=== PATIENT | female | born 1995 | race Caucasian/White ===

== ENCOUNTER 2018-12-19 09:25 | Emergency (ER) | payer OTHER ==
--- OUTSIDE RECORDS SUMMARY | 2018-12-19 09:27 | XMS REPORT ---
:1995 [facility] Address [address] [place] [address] [place] [address] Care Team Providers Name Role Phone Unavailable Unavailable Unavailable Problems This patient has no known problems. Allergies, Adverse Reactions, Alerts This patient has no known allergies or adverse reactions. Medications This patient has no known medications.
--- OUTSIDE RECORDS SUMMARY | 2018-12-19 09:27 | XMS REPORT | Summary of Care ---
:1995 Author Organization [facility] Address [address] [place] [id number] Care Team Providers Name Role Phone Carlo Benz Primary Care Provider Reason for Visit Reason Comments Rx Concern/Question Needs to know if medication is making her nauseous Encounter Details Date Type Department Care Team Description 12/18/[address] [facility] Ozzie Juárez Rx Concern/Question Endocrinology- [address] [place] [address] (Needs to know if [place] [address] medication [place] [address] her nauseous) Building [phone] [place] [address] [address] [place] [address] Allergies No Known Allergiesdocumented as of this encounter (statuses as of 12/18/2018) Medications Medication Sig Dispensed Refills Start Date End Date Status Blood Pressure Monitor Use as directed 1 Kit 0 08/22/2015 Active (BLOOD PRESSURE KIT) KitIndications: Hyperthyroidism levothyroxine 50 mcg Take 1 tablet by 30 tablet 5 11/13/2018 Active tabletIndications: mouth every Postablative morning. hypothyroidism documented as of this encounter (statuses as of 12/18/2018) Active Problems Problem Noted Date 01/30/2016 Graves disease 11/28/2015 documented as of this encounter (statuses as of 12/18/2018) Social History Tobacco Use Types Packs/Day Years Used Date Never Smoker Alcohol Use Drinks/Week oz/Week Comments Not Asked 0 Standard drinks or equivalent 0.0 Sex Assigned at Date Recorded Not on file Job Start Date Occupation Industry Not on file Not on file Not on file Travel History Travel Start Travel End No recent travel history available. documented as of this encounter Last Filed Vital Signs Not on filedocumented in this encounter Plan of Treatment Date Type Specialty Care Team Description 02/12/2019 Office Visit Endocrinology Diabetes & Ozzie Juárez [address] [place] [address] [phone] Name Type Priority Associated Diagnoses Order Schedule THYROID STIMULATING LAB Routine Postablative hypothyroidism Expected: HORMONE 12/18/2018, Expires: 01/15/2019 T4 FREE LAB Routine Postablative hypothyroidism Expected: 12/18/2018, Expires: 01/15/2019 Health Maintenance Due Date Last Done Comments VARICELLA VACCINES (1 of 2 - 13+ 10/18/2007 2-dose series) HPV VACCINES (1 - Female 3-dose 2009 series) CHLAMYDIA SCREENING 2010 DTaP,Tdap,and Td Vaccines (1 - 2013 Tdap) PAP SMEAR 10/18/2015 INFLUENZA VACCINE 01/17/2019 PNEUMOCOCCAL 0-64 YEARS COMBINED Aged Out No longer eligible based on SERIES patient's age to complete this topic documented as of this encounter Results Not on filedocumented in this encounter Visit Diagnoses Diagnosis Postablative hypothyroidism - Primary Other postablative hypothyroidism documented in this encounter Insurance Payer Benefit Plan / Group Subscriber ID Effective Dates Phone Address Type AETNA AETNA O [id number] 2015-Present HMO documented as of this encounter
[2018-12-19] MEDS ORDERED: NA CHLORIDE 0.9% 1,000 ML ONE (09:46)
[2018-12-19 10:16] LABS: Absolute Lymphocytes (CBC) 1.6 K/uL (0.7-4.9); Basophils % 0.9 % (0-1.3); Hematocrit 37.4 % (36.0-45.0); Lymphocytes % 25.5 % (15.3-44.8); MPV 8.5 fL (7.6-11.3)
[2018-12-19 10:17] LABS: Urine Bacteria 20-50 /HPF (<20); Urine Culture Reflex Order NOT NEEDED; Urine Mucus 1+ /HPF (NONE SEEN); Urine RBC <5 /HPF (NONE SEEN)
[2018-12-19 10:35] LABS: Barbiturates NEGATIVE (NEGATIVE); Benzodiazepines NEGATIVE (NEGATIVE); Cocaine NEGATIVE (NEGATIVE); METHAMPHETAM NEGATIVE (NEGATIVE); Methadone NEGATIVE (NEGATIVE); Opiates NEGATIVE (NEGATIVE); Phencyclidine NEGATIVE (NEGATIVE); THC Cannibis POSITIVE (NEGATIVE)
[2018-12-19 10:55] LABS: BUN Blood Urea Nitrogen 15 mg/dL (7-18); Bicarbonate 28 mmol/L (21-32); Glucose Level 85 mg/dL (74-106); Potassium 4.1 mmol/L (3.5-5.1); Sodium Level 143 mmol/L (136-145)
[2018-12-19 11:46] LABS: Urine Blood 1+ (NEG); Urine Glucose NEGATIVE (NEG); Urine Protein TRACE (NEG); Urine Specific Gravity 1.025 (1.005-1.030)
[2018-12-19] MEDS ORDERED: CEFTRIAXONE/SWI 1gm 1 GM/10 ML SYR ONE (12:10)
--- NOTE | 2018-12-19 12:16 | ER ---
Nurse's Notes [facility] Name: Penelope Slater Age: 23 yrs Sex: Female : 1995 Arrival Date: 12/19/2018 Time: 09:28 Bed 14 Private MD: Diagnosis: Urinary tract infection, site not specified;Thyrotoxicosis [hyperthyroidism] Presentation: 12/19 09:45 Presenting complaint: Patient states: hx of Graves disease, has been feeling tired, iw felt like she was going to pass out at work today , yesterday had diarrhea, also c/o nausea, denies vomiting, denies fever, did not take her levothyroxine last night. Transition of care: patient was not received from another setting of care. Onset of symptoms was December 18, 2018. Risk Assessment: Do you want to hurt yourself or someone else? Patient reports no desire to harm self or others. Initial Sepsis Screen: Does the patient meet any 2 criteria? No. Patient's initial sepsis screen is negative. Does the patient have a suspected source of infection? No. Patient's initial sepsis screen is negative. Care prior to arrival: None. 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 - Social history:: Smoking status: Patient/guardian denies using tobacco. - Ebola Screening: : Patient negative for fever greater than or equal to 101.5 degrees Fahrenheit, and additional compatible Ebola Virus Disease symptoms Patient denies exposure to infectious person Patient denies travel to an Ebola-affected area in the 21 days before illness onset No symptoms or risks identified at this time. Screenin:00 Abuse screen: Denies threats or abuse. Denies injuries from another. Nutritional sg screening: No deficits noted. Tuberculosis screening: No symptoms or risk factors identified. Never had TB. Fall Risk None identified. Assessment: 10:00 General: Appears in no apparent distress. well groomed, well developed, well nourished, sg Behavior is calm, cooperative, appropriate for age. General: Reports fatigue for 1-2 days. Pain: Denies pain. Neuro: Level of Consciousness is awake, alert, obeys commands, Oriented to person, place, time, Supervisor Public Health Nursing are equal bilaterally Moves all extremities. Gait is steady, Speech is normal, Facial symmetry appears normal. Cardiovascular: Capillary refill is brisk in bilateral fingers Patient's skin is warm and dry. Chest pain is denied. Respiratory: Airway is patent Respiratory effort is even, unlabored, Respiratory pattern is regular, symmetrical. GI: No signs and/or symptoms were reported involving the gastrointestinal system. : No signs and/or symptoms were reported regarding the genitourinary system. EENT: No signs and/or symptoms were reported regarding the EENT system. Derm: Skin is pink, warm \T\ dry. Musculoskeletal: Circulation, motion, and sensation intact. Range of motion: intact in all extremities. 10:30 Reassessment: Patient appears in no apparent distress at this time. Patient and/or sg family updated on plan of care and expected duration. Pain level reassessed. Patient is alert, oriented x 3, equal unlabored respirations, skin warm/dry/pink. Vital Signs: 09:46 BP 102 / 89; Pulse 71; Resp 16; Temp 97.7(TE); Pulse Ox 98% on R/A; Weight 126.55 kg; iw Height 5 ft. 7 in. (170.18 cm); Pain 0/10; 09:46 Body Mass Index 43.70 (126.55 kg, 170.18 cm) iw ED Course: 09:28 Patient arrived in ED. as 09:29 Gretel Doan FNP-C [facility]. snw 09:29 Nikolas Winston MD is Attending Physician. snw 09:45 Sagar Tolliver, MAGALYS is Primary Nurse. sg 09:46 Triage completed. iw 09:46 Arm band placed on. iw 10:00 Patient has correct armband on for positive identification. Bed in low position. Call sg light in reach. Side rails up X2. Pulse ox on. NIBP on. 10:00 Initial lab(s) drawn, by me, sent to lab. Inserted saline lock: 22 gauge in left sg antecubital area, using aseptic technique. Blood collected. 10:24 No provider procedures requiring assistance completed. sg 10:29 No provider procedures requiring assistance completed. sg 10:30 Awaiting lab results. sg 12:40 IV discontinued, intact, bleeding controlled, No redness/swelling at site. Pressure sg dressing applied. Administered Medications: 10:00 Drug: NS 0.9% 1000 ml Route: IV; Rate: 1 bolus; Site: left antecubital; sg 12:00 Drug: Rocephin 1 grams Route: IV; Rate: calculated rate; Site: left antecubital; sg Outcome: 12:15 Discharge ordered by MD. snw 12:40 Discharged to home ambulatory, with friend. sg 12:40 Condition: good 12:40 Discharge instructions given to patient, Instructed on discharge instructions, follow up and referral plans. medication usage, safety practices, Demonstrated understanding of instructions, follow-up care, Prescriptions given X 2. 12:42 Patient left the ED. sg Signatures: Sagar Tolliver, RN RN sg Gretel Doan, WELLNESS TRAINER-C WELLNESS TRAINER-Alicia Black as Danica Adames RN RN
--- NOTE | 2018-12-19 12:16 | EDPHYS ---
Physician Documentation [facility] Name: Penelope Slater Age: 23 yrs Sex: Female : 1995 Arrival Date: 12/19/2018 Time: 09:28 Bed 14 Private MD: ED Physician Nikolas Winston HPI: 12/19 09:44 This 23 yrs old Female presents to ER via Unassigned with complaints of snw Thyroid. 09:44 Onset: The symptoms/episode began/occurred 1 week(s) ago, and became persistent. snw Associated signs and symptoms: Pertinent positives: diarrhea, vomiting, nausea, palpitations, heat intolerance. Modifying factors: The patient symptoms are alleviated by nothing, the patient symptoms are aggravated by movement. The patient has experienced similar episodes in the past. It is unknown whether or not the patient has recently seen a physician. pt with hx of Grave's, took Methimazole until a month ago and began Levothyroxine. Pt states she was previously tx'd with radioactive iodine therapy. 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 - Social history:: Smoking status: Patient/guardian denies using tobacco. - Ebola Screening: : Patient negative for fever greater than or equal to 101.5 degrees Fahrenheit, and additional compatible Ebola Virus Disease symptoms Patient denies exposure to infectious person Patient denies travel to an Ebola-affected area in the 21 days before illness onset No symptoms or risks identified at this time. ROS: 09:42 Eyes: Negative for injury, pain, redness, and discharge, ENT: Negative for injury, snw pain, and discharge, Neck: Negative for injury, pain, and swelling, Cardiovascular: Negative for chest pain, palpitations, and edema, Respiratory: Negative for shortness of breath, cough, wheezing, and pleuritic chest pain. 09:42 Back: Negative for injury and pain, : Negative for injury, bleeding, discharge, and swelling, MS/Extremity: Negative for injury and deformity, Skin: Negative for injury, rash, and discoloration. 09:42 Constitutional: Positive for fatigue, malaise, poor PO intake. 09:42 Abdomen/GI: Positive for nausea, vomiting, and diarrhea. 09:42 Neuro: Positive for near syncope. Exam: 09:42 Constitutional: This is a well developed, well nourished patient who is awake, alert, snw and in no acute distress. Head/Face: Normocephalic, atraumatic. Eyes: Pupils equal round and reactive to light, extra-ocular motions intact. Lids and lashes normal. Conjunctiva and sclera are non-icteric and not injected. Cornea within normal limits. Periorbital areas with no swelling, redness, or edema. ENT: Nares patent. No nasal discharge, no septal abnormalities noted. Tympanic membranes are normal and external auditory canals are clear. Oropharynx with no redness, swelling, or masses, exudates, or evidence of obstruction, uvula midline. Mucous membranes moist. Neck: Trachea midline, no thyromegaly or masses palpated, and no cervical lymphadenopathy. Supple, full range of motion without nuchal rigidity, or vertebral point tenderness. No Meningismus. Chest/axilla: Normal chest wall appearance and motion. Nontender with no deformity. No lesions are appreciated. Cardiovascular: Regular rate and rhythm with a normal S1 and S2. No gallops, murmurs, or rubs. Normal PMI, no JVD. No pulse deficits. Respiratory: Lungs have equal breath sounds bilaterally, clear to auscultation and percussion. No rales, rhonchi or wheezes noted. No increased work of breathing, no retractions or nasal flaring. Abdomen/GI: Soft, non-tender, with normal bowel sounds. No distension or tympany. No guarding or rebound. No evidence of tenderness throughout. Back: No spinal tenderness. No costovertebral tenderness. Full range of motion. Skin: Warm, dry with normal turgor. Normal color with no rashes, no lesions, and no evidence of cellulitis. MS/ Extremity: Pulses equal, no cyanosis. Neurovascular intact. Full, normal range of motion. Neuro: Awake and alert, GCS 15, oriented to person, place, time, and situation. Cranial nerves II-XII grossly intact. Motor strength 5/5 in all extremities. Sensory grossly intact. Cerebellar exam normal. Normal gait. Psych: Awake, alert, with orientation to person, place and time. Behavior, mood, and affect are within normal limits. Vital Signs: 09:46 BP 102 / 89; Pulse 71; Resp 16; Temp 97.7(TE); Pulse Ox 98% on R/A; Weight 126.55 kg; iw Height 5 ft. 7 in. (170.18 cm); Pain 0/10; 09:46 Body Mass Index 43.70 (126.55 kg, 170.18 cm) iw MDM: 09:33 Patient medically screened. snw 11:59 Data reviewed: vital signs, nurses notes. Data interpreted: Pulse oximetry: on room air snw is 98 %. Interpretation: normal. Counseling: I had a detailed discussion with the patient and/or guardian regarding: the historical points, exam findings, and any diagnostic results supporting the discharge/admit diagnosis, lab results, the need for outpatient follow up, stop Levothyroxine until f/u with Endocrinology. Response to treatment: the patient's symptoms have mildly improved after treatment. Awaiting: free T4 value. 12/19 09:42 Order name: Chem 7 snw 12/19 09:42 Order name: CBC with Diff; Complete Time: 10:18 snw 12/19 09:42 Order name: TSH; Complete Time: 11:03 snw 12/19 09:42 Order name: Urine Drug Screen; Complete Time: 10:46 snw 12/19 09:42 Order name: Urine Culture snw 12/19 09:42 Order name: Urine Microscopic Only; Complete Time: 10:18 snw 12/19 09:42 Order name: Urine Test (obtain specimen); Complete Time: 10:20 snw 12/19 09:42 Order name: Urine Dipstick-Ancillary (obtain specimen); Complete Time: 10:20 snw 12/19 09:43 Order name: Basic Metabolic Panel; Complete Time: 11:03 EDMS 12/19 09:58 Order name: Urine Dipstick--Ancillary (enter results); Complete Time: 11:52 eb 12/19 09:58 Order name: Urine --Ancillary (enter results); Complete Time: 11:52 eb 12/19 11:56 Order name: T4 Free; Complete Time: 12:14 snw Administered Medications: 10:00 Drug: NS 0.9% 1000 ml Route: IV; Rate: 1 bolus; Site: left antecubital; sg 12:00 Drug: Rocephin 1 grams Route: IV; Rate: calculated rate; Site: left antecubital; sg Disposition: 15:27 Co-signature as Attending Physician, Nikolas Winston MD. rn Disposition: 12/19/18 12:15 Discharged to Home. Impression: Urinary tract infection, site not specified, Thyrotoxicosis [hyperthyroidism]. - Condition is Stable. - Discharge Instructions: Hyperthyroidism, Urinary Tract Infection, Adult, Rehydration, Adult. - Prescriptions for Macrobid 100 mg Oral Capsule - take 1 capsule by ORAL route every 12 hours for 10 days; 20 capsule. promethazine 25 mg Oral Tablet - take 1 tablet by ORAL route every 6 hours As needed; 20 tablet. - Work release form, Medication Reconciliation Form, Thank You Letter, Antibiotic Education, Prescription Opioid Use form. - Follow up: Private Physician; When: 1 - 2 days; Reason: Recheck today's complaints, Continuance of care, Re-evaluation by your physician. Follow up: Emergency Department; When: As needed; Reason: Worsening of condition. - Notes: Please stop Levothyroxine and follow up with Anesthesiology Teacher as soon as possible Signatures: Dispatcher [employer] Sagar Chavarria RN RN sg Gretel Doan, FILE CLERK DATA ENTRY-C FILE CLERK DATA ENTRY-Csnw Danica Adames RN RN Nikolas Winston MD MD sports team marketing intern: (The following items were deleted from the chart) 12:42 12:15 12/19/2018 12:15 Discharged to Home. Impression: Urinary tract infection, site sg not specified; Thyrotoxicosis [hyperthyroidism]. Condition is Stable. Forms are Medication Reconciliation Form, Thank You Letter, Antibiotic Education, Prescription Opioid Use. Follow up: Private Physician; When: 1 - 2 days; Reason: Recheck today's complaints, Continuance of care, Re-evaluation by your physician. Follow up: Emergency Department; When: As needed; Reason: Worsening of condition. snw
[2018-12-19 13:12] VITALS: BP 102/89; TEMP 97.7; O2SAT 98
== END 2018-12-19 12:42 | disposition home or self-care (01) ==
LOC: ER 09:25
DX: N39.0 Urinary tract infection, site not specified (principal); E05.90 Thyrotoxicosis, unspecified without thyrotoxic crisis or storm; I10 Essential (primary) hypertension; E05.00 Thyrotoxicosis with diffuse goiter without thyrotoxic crisis or storm; Z91.018 Allergy to other foods; Z91.040 Latex allergy status; Z91.048 Other nonmedicinal substance allergy status
CPT/HCPCS: 87088; 85025; 87086; 80048; 36415; 81025; 80307 ×8; 84443; 84439; 96374; 99284; J0696; J7030; 81003; 81015

== ENCOUNTER 2020-12-12 12:41 | Emergency (ER) | payer OTHER, SELFPAY ==
--- OUTSIDE RECORDS SUMMARY | 2020-12-12 12:43 | XMS REPORT | Continuity of Care Document ---
:1995 Author Organization [facility] t Address [address] [place] [place] [address] Care Team Providers Name Role Phone Fariha Juárez Attending Clinician 1, Lab Attending Clinician Unavailable Problems This patient has no known problems. Allergies, Adverse Reactions, Alerts This patient has no known allergies or adverse reactions. Medications This patient has no known medications. Procedures This patient has no known procedures. Encounters Start End Encounter Admission Attending Care Care Encounter Source Date/Time Date/Time Type Type Clinicians Facility Department ID 2018-12-31 2018-12-31 Telephone Franck [facility] [id number] 00:00:00 00:00:00 Ozzie Menezes [id number] [place] [id number] Profess[facility] [phone] [address] 2018-12-29 2018-12-29 [facility] [id number] 00:00:00 00:00:00 Ozzie Menezes [id number] [place] [id number] [facility] [id number] [address] 2018-12-28 2018-12-28 Telephone Franck [facility] [id number] 00:00:00 00:00:00 Ozzie Menezes [id number] [place] [id number] [facility] [phone] [address] 2018-12-22 2018-12-24 [facility] 1, Adc Lab [facility] [id number] 16:50:48 21:42:12 Visit [place] [id number] [place] [id number] [place] [phone] [id number] Results This patient has no known results.
[2020-12-12 13:19] LABS: Urine Blood Negative (Negative); Urine Glucose Negative (Negative); Urine Protein 1+ (Negative); Urine Specific Gravity 1.025 (1.005-1.030); Urine pH 5.5 (5.0-7.0)
[2020-12-12 13:51] LABS: Absolute Lymphocytes (CBC) 1.3 K/uL (0.7-4.9); Basophils % 0.6 % (0-1.3); Hematocrit 41.8 % (36.0-45.0); MPV 8.1 fL (7.6-11.3); RBC Red Blood Cell Count 4.83 M/uL (3.86-4.86)
[2020-12-12 14:16] LABS: Urine Specific Gravity/Preg 1.025 (1.005-1.030)
[2020-12-12 14:17] LABS: ALT/SGPT 43 U/L (12-78); AST/SGOT 39 U/L (15-37); Albumin 4.2 g/dL (3.4-5.0); Alkaline Phosphatase 74 U/L (45-117); BUN Blood Urea Nitrogen 15 mg/dL (7-18); Bicarbonate 23 mmol/L (21-32); Bilirubin Direct 0.1 mg/dL (0-0.2); Bilirubin Total 0.4 mg/dL (0.2-1.0); Glucose Level 98 mg/dL (74-106); Lipase 42 U/L (73-393); Potassium 3.7 mmol/L (3.5-5.1); Protein, Total 8.2 g/dL (6.4-8.2); Sodium Level 141 mmol/L (136-145)
[2020-12-12] MEDS ORDERED: NA CHLORIDE 0.9% 1,000 ML ONE (15:04)
[2020-12-12] MEDS ORDERED: ONDANSETRON 4 MG/2 ML VIAL ONE (15:04)
[2020-12-12] MEDS ORDERED: FAMOTIDINE 20 MG/2 ML VIAL IV ONE (15:15)
[2020-12-12] MEDS ORDERED: NA CHLORIDE 0.9% 500 ML ONE (16:40)
[2020-12-12] MEDS ORDERED: METOCLOPRAMIDE 10 MG/2mL INJ ONE ×2 (16:40)
--- NOTE | 2020-12-12 18:17 | ER ---
Nurse's Notes [facility] Name: Penelope Slater Age: 25 yrs Sex: Female : 1995 Arrival Date: 12/12/2020 Time: 12:44 Bed 27 Private MD: Diagnosis: Vomiting;Diarrhea, unspecified;Acute vaginitis Presentation: 12/12 12:58 Chief complaint: Patient states: diarrhea, nausea, vomiting unable to keep anything kg down x 4 days. Burning after urination, urgency, vaginally feels swollen pt stated, "almost like a yest infection" Pt took one dose of monostat yesterday. Coronavirus screen: Client denies travel out of the [place] in the last 14 days. At this time, unable to obtain information related to travel outside the [place] Client presents with at least one sign or symptom that may indicate coronavirus-19. Standard/surgical mask placed on the client. Provider contacted for isolation considerations. Client reports previous positive COVID test result. Date of collection: December 09, 2020. Ebola Screen: Patient negative for fever greater than or equal to 101.5 degrees Fahrenheit, and additional compatible Ebola Virus Disease symptoms Patient denies exposure to infectious person. Patient denies travel to an Ebola-affected area in the 21 days before illness onset. Initial Sepsis Screen: Does the patient meet any 2 criteria? No. Patient's initial sepsis screen is negative. Does the patient have a suspected source of infection? No. Patient's initial sepsis screen is negative. Risk Assessment: Do you want to hurt yourself or someone else? Patient reports no desire to harm self or others. Onset of symptoms was December 09, 2020. 12:58 Method Of Arrival: Ambulatory kg 12:58 Acuity: PRATIBHA 3 kg Triage Assessment: 13:05 General: Appears in no apparent distress. Behavior is calm, cooperative, appropriate kg for age, quiet. Pain: Denies pain. GI: Reports diarrhea, nausea, vomiting. 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 - Social history:: Smoking status: Patient denies any tobacco usage or history of. Patient uses street drugs, marijuana. Screenin:06 Abuse screen: Denies threats or abuse. Denies injuries from another. Nutritional kg screening: No deficits noted. Tuberculosis screening: No symptoms or risk factors identified. Fall Risk None identified. Assessment: 16:56 Reassessment: Pt ambulated with steady gait to restroom. ss Vital Signs: 12:58 BP 117 / 90; Pulse 105; Resp 20; Temp 98.4; Pulse Ox 99% on R/A; Weight 136.08 kg; kg Height 5 ft. 8 in. (172.72 cm); Pain 0/10; 15:00 BP 121 / 73; Pulse 86; Resp 18; Pulse Ox 99% on R/A; ld1 12:58 Body Mass Index 45.61 (136.08 kg, 172.72 cm) kg ED Course: 12:44 Patient arrived in ED. as 13:02 Triage completed. kg 13:06 Arm band placed on left wrist. kg 13:32 Inserted saline lock: 20 gauge in left antecubital area, using aseptic technique. kg 14:36 Nahun Flores PA is PHCP. jmm 14:36 Nikolas Winston MD is Attending Physician. jmm 14:47 Kasey Goncalves RN is Primary Nurse. ss 16:00 Patient has correct armband on for positive identification. Placed in gown. Bed in low ss position. Call light in reach. 17:23 Cortez Bradshaw MD is Referral Physician. jmm 17:35 No provider procedures requiring assistance completed. IV discontinued, intact, ss bleeding controlled, No redness/swelling at site. Pressure dressing applied. Administered Medications: 14:47 Drug: Zofran (Ondansetron) 4 mg Route: IVP; Site: left antecubital; kg 17:16 Follow up: Response: No adverse reaction ss 14:47 Drug: NS 0.9% 1000 ml Route: IV; Rate: 1 bolus; Site: left antecubital; kg 15:47 Follow up: IV Status: Completed infusion; IV Intake: 1000ml ss 14:58 Drug: Pepcid (famotidine) 20 mg Route: IVP; Site: left antecubital; ss 17:16 Follow up: Response: No adverse reaction ss 16:24 Drug: Reglan (metoCLOPramide) 20 mg Route: IVP; Site: left antecubital; ld1 16:27 Follow up: Response: No adverse reaction ld1 16:25 Drug: NS 0.9% 500 ml Route: IV; Rate: bolus; Site: left antecubital; ld1 16:27 Follow up: Response: No adverse reaction ld1 17:16 Follow up: IV Status: Completed infusion; IV Intake: 500ml ss Intake: 15:47 IV: 1000ml; Total: 1000ml. ss 17:16 IV: 500ml; Total: 1500ml. ss Outcome: 17:24 Discharge ordered by . lucy 17:35 Discharged to home ambulatory. ss 17:35 Condition: good 17:35 Discharge instructions given to patient, Instructed on discharge instructions, follow up and referral plans. medication usage, Demonstrated understanding of instructions, follow-up care, Prescriptions given X 2. 17:37 Patient left the ED. ld1 Signatures: Nahun Flores PA PA jmm Martinez, Amelia as Smirch, Shelby, RN RN Penelope Hidalgo RN RN ld1 Keli Joseph RN RN kg
--- NOTE | 2020-12-12 18:17 | EDPHYS ---
Physician Documentation [facility] Name: Penelope Slater Age: 25 yrs Sex: Female : 1995 Arrival Date: 12/12/2020 Time: 12:44 Bed 27 Private MD: ED Physician Nikolas Winston HPI: 12/12 14:46 This 25 yrs old Female presents to ER via Ambulatory with complaints of jmm Vomiting, Pain All Over - covid+. 14:46 The patient presents to the emergency department with nausea, vomiting. Onset: The jmm symptoms/episode began/occurred gradually, 4 day(s) ago. Possible causes: viral infection. The symptoms are aggravated by nothing. The symptoms are alleviated by nothing. Associated signs and symptoms: Pertinent positives: diarrhea. Is a 25-year-old female with history of Graves' disease, hypertension, depression that presents emerged part with complaints of vomiting and diarrhea beginning approximately 4 days ago. Patient states she has been unable to keep fluids down. Complains of mild generalized abdominal pain. Patient denies dark or tarry stools but states that she has had multiple episodes where she has vomited blood. Patient denies chronic alcohol use.. 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 - Social history:: Smoking status: Patient denies any tobacco usage or history of. Patient uses street drugs, marijuana. ROS: 14:46 Constitutional: Negative for fever, chills, and weight loss, Cardiovascular: Negative jmm for chest pain, palpitations, and edema, Respiratory: Negative for shortness of breath, cough, wheezing, and pleuritic chest pain. 14:46 Abdomen/GI: Positive for nausea and vomiting, diarrhea. 14:46 All other systems are negative. Exam: 14:46 Constitutional: This is a well developed, well nourished patient who is awake, alert, jmm and in no acute distress. Head/Face: atraumatic. Eyes: EOMI, no conjunctival erythema appreciated ENT: Moist Mucus Membranes Neck: Trachea midline, Supple Chest/axilla: Normal chest wall appearance and motion. Cardiovascular: Regular rate and rhythm. No edema appreciated Respiratory: Normal respirations, no respiratory distress appreciated 14:46 Skin: General appearance color normal MS/ Extremity: Moves all extremities, no obvious deformities appreciated, no edema noted to the lower extremities Neuro: Awake and alert, normal gait Psych: Behavior is normal, Mood is normal, Patient is cooperative and pleasant 14:46 Abdomen/GI: Inspection: obese Bowel sounds: normal, Palpation: soft, nontender, in all quadrants. Vital Signs: 12:58 BP 117 / 90; Pulse 105; Resp 20; Temp 98.4; Pulse Ox 99% on R/A; Weight 136.08 kg; kg Height 5 ft. 8 in. (172.72 cm); Pain 0/10; 15:00 BP 121 / 73; Pulse 86; Resp 18; Pulse Ox 99% on R/A; ld1 12:58 Body Mass Index 45.61 (136.08 kg, 172.72 cm) kg MDM: 14:45 Patient medically screened. venecia 17:19 Data reviewed: vital signs, nurses notes. Counseling: I had a detailed discussion with lucy the patient and/or guardian regarding: the historical points, exam findings, and any diagnostic results supporting the discharge/admit diagnosis, lab results, the need for outpatient follow up, to return to the emergency department if symptoms worsen or persist or if there are any questions or concerns that arise at home. 17:22 ED course: Patient is alert and nontoxic in appearance in the ER. Abdomen is soft, no jmm tenderness on palpation. Vomiting diarrhea most likely due to a viral infection. Hemoccult negative. Patient advised to follow with GI for further evaluation and to return immediately if her symptoms worsen. Patient understood and agrees with plan of care.. 12/12 13:18 Order name: Urine Dipstick-Ancillary; Complete Time: 14:45 EDMS 12/12 13:19 Order name: Urine --Ancillary (enter results); Complete Time: 14:45 bd 12/12 13:32 Order name: Basic Metabolic Panel; Complete Time: 14:45 kg 12/12 13:32 Order name: CBC with Diff; Complete Time: 14:45 kg 12/12 13:32 Order name: Hepatic Function; Complete Time: 14:45 kg 12/12 13:32 Order name: Lipase; Complete Time: 14:45 kg 12/12 13:32 Order name: IV Saline Lock; Complete Time: 13:32 kg 12/12 13:32 Order name: Labs collected and sent; Complete Time: 13:32 kg 12/12 17:23 Order name: Occult Blood--Ancillary bd 12/12 14:52 Order name: Gown patient; Complete Time: 14:52 jmm 12/12 16:10 Order name: PO challenge; Complete Time: 16:27 [facility] Administered Medications: 14:47 Drug: Zofran (Ondansetron) 4 mg Route: IVP; Site: left antecubital; kg 17:16 Follow up: Response: No adverse reaction ss 14:47 Drug: NS 0.9% 1000 ml Route: IV; Rate: 1 bolus; Site: left antecubital; kg 15:47 Follow up: IV Status: Completed infusion; IV Intake: 1000ml ss 14:58 Drug: Pepcid (famotidine) 20 mg Route: IVP; Site: left antecubital; ss 17:16 Follow up: Response: No adverse reaction ss 16:24 Drug: Reglan (metoCLOPramide) 20 mg Route: IVP; Site: left antecubital; ld1 16:27 Follow up: Response: No adverse reaction ld1 16:25 Drug: NS 0.9% 500 ml Route: IV; Rate: bolus; Site: left antecubital; ld1 16:27 Follow up: Response: No adverse reaction ld1 17:16 Follow up: IV Status: Completed infusion; IV Intake: 500ml ss Disposition: 17:38 Co-signature as Attending Physician, Nikolas Winston MD. rn Disposition Summary: 12/12/20 17:24 Discharge Ordered Location: Home [facility] Condition: Stable jmm Diagnosis - Vomiting jmm - Diarrhea, unspecified jmm - Acute vaginitis jmm Followup: [facility] - With: Cortez Bradshaw MD - When: 2 - 3 days - Reason: Recheck today's complaints, Continuance of care, Re-evaluation by your physician Discharge Instructions: - Discharge Summary Sheet [facility] - Food Choices to Help Relieve Diarrhea, Adult jm - Vaginitis jmm - Vomiting, Adult [facility] Forms: - Medication Reconciliation Form [facility] - Thank You Letter [facility] - Antibiotic Education [facility] - Prescription Opioid Use [facility] Prescriptions: - ondansetron 4 mg Oral tablet,disintegrating - place 1 tablet by TRANSLINGUAL route every 4-6 hours; 20 tablet; Refills: 0, [facility] Product Selection Permitted - Flagyl 500 mg Oral Tablet - take 1 tablet by ORAL route every 12 hours for 7 days; 14 tablet; Refills: 0, [facility] Product Selection Permitted Signatures: Dispatcher [employer] Nahun Patel PA PA [facility] Nikolas Winston MD MD rn Smirch, Shelby RN RN ss Penelope Hidalgo RN RN ld1 Keli Joseph RN RN kg
[2020-12-14 00:56] VITALS: BP 121/73; O2SAT 99
[2020-12-14 01:01] VITALS: TEMP 98.4
== END 2020-12-12 17:37 | disposition home or self-care (01) ==
LOC: ER 12:41
DX: R11.2 Nausea with vomiting, unspecified (principal); R19.7 Diarrhea, unspecified; N76.0 Acute vaginitis; I10 Essential (primary) hypertension; F32.9 Major depressive disorder, single episode, unspecified; E05.00 Thyrotoxicosis with diffuse goiter without thyrotoxic crisis or storm
CPT/HCPCS: 36415; 80048; 80076; 81003; 81025; 82272; 83690; 85025; J2405; J2765; J7030; J7040

== ENCOUNTER 2024-08-21 15:27 | Emergency (ER) | payer OTHER, SELFPAY ==
--- OUTSIDE RECORDS SUMMARY | 2024-08-21 15:33 | XMS REPORT | Continuity of Care Document ---
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 Role Phone Eduardo Dumont Primary Care Physician BRENNEN WAGNER Attending Clinician Unavailable MARJORIE BENÍTEZ Attending Clinician Unavailable Criss Briggs Attending Clinician Jeyson Marjorie ARMSTRONG Attending Clinician [phone] BÁRBARA TAYLOR Attending Clinician BÁRBARA Silver Attending Clinician JELLY Perez Attending Clinician Unavailable Criss Briggs Attending Clinician [phone] Brennen Wagner MD Attending Clinician [phone] Lab, Ang - Db Attending Clinician Unavailable CRISS LEYVA Attending Clinician Unavailable [facility], [facility] Lab Main Attending Clinician Unavailabl e Doctor Unassigned, [place] Attending Clinician U navailable MANDA ATKINSON Attending Clinician Unavaila MANDA Kapoor Attending Clinician UnavailLANG Diop Attending Clinician Unavail LANG Caicedo Attending Clinician Unavail Lang Caicedo MD Attending Clinician [facility] Eeg Attending Clinician Unavailable Mandy Ramirez Attending Clinician [phone] , [facility] Sleep Lab Bed Attending Clinician Unavail Madna Kinsey MD Attending Clinician MANDY WAGNER Attending Clinician Unavailable Pcp-Lab Attending Clinician Unavailable Jelly Waters PA-C Attending Clinician [phone] JELLY WATERS Attending Clinician Unavailable ELIZA MEJIA Attending Clinician Unavailable Surface DalilaMoraima Attending Clinician [phone], [employer] Attending Clinician Joceline marissa Rivas PhD, Zuleyma Allen Attending Clinician + [phone] ZULEYMA RIVAS Attending Clinician Unavailab SYDNI Abbott Attending Clinician Unavailable Ozzie Juárez Attending Clinician [phone], [facility] Attending Clinician Unavailable BRENNEN WAGNER Admitting Clinician Unavailable Bárbara Taylor MD Admitting Clinician + [phone] LANG VIVEROS Admitting Clinician Unavail able Payers Payer Name Policy Type Policy Number Effective Date Expirati on Date Source [facility] [id number] 2022 00:00:00 Problems Condition Name Condition Details Condition Category Status Onset Date Resolution Date Last Treatment Date Treating Clinician Comments Source Thyrotoxic osis Thyrotoxic osis Disease Active 05-20 00:00: 00 [facility] Tachycardi a Tachycardi a Disease Active 05-20 00:00: 00 [facility] Polycystic ovaries Polycystic ovaries Disease Active 05-20 00:00: 00 [facility] Pain Pain Disease Active 2022-05 00:00: 00 [facility] Right wrist pain Right wrist pain Disease Active 2022-05 00:00: 00 [facility] Dysplasia of cervix, high grade JEMIMA 2 Dysplasia of cervix, high grade EJMIMA 2 Disease Active 2022-05 00:00: 00 [facility] Severe dysplasia of cervix (JEMIMA III) Severe dysplasia of cervix (JEMIMA III) Disease Active 2022-05 00:00: 00 [facility] Morbid obesity with body mass index of 40.0-49.9 Morbid obesity with body mass index of 40.0-49.9 Disease Active 2022-05 0-30 00:00: 00 [facility] ASCUS with 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 Disease Active 2022-05 030 00:00: 00 [facility] Atypical squamous cell changes of undetermin ed significan ce (ASCUS) on vaginal cytology Atypical squamous cell changes of undetermin ed significan ce (ASCUS) on vaginal cytology Disease Active 7 00:00: 00 [facility] History of HPV infection History of HPV infection Disease Active 0 7 00:00: 00 [facility] Right hip pain Right hip pain Disease Active 0 10-07 00:00: 00 [facility] Right hip pain Right hip pain Disease Active 10-07 00:00: 00 [facility] Snoring Snoring Disease Active 0 5 00:00: 00 [facility] Chronic midline thoracic back pain Chronic midline thoracic back pain Disease Active 5- 00:00: 00 [facility] Lumbar pain Lumbar pain Disease Active 0 519 00:00: 00 [facility] Herpes zoster without complicati on Herpes zoster without complicati on Disease Active 2-13 00:00: 00 [facility] Pulsatile tinnitus of right ear Pulsatile tinnitus of right ear Disease Active 2-13 00:00: 00 [facility] BMI 45.0-49.9, adult BMI 45.0-49.9, adult Disease Active 2-06 00:00: 00 [facility] Anxiety and depression Anxiety and depression Disease Active 2-06 00:00: 00 [facility] Graves disease Graves disease Disease Active 7- 00:00: 00 [facility] Acute cough Acute cough Disease Resolve d 8- 00:00: 00 2023-03-17 00:00:00 2023-03-17 15:14:05 [facility] Bartholin' s cyst Bartholin' s cyst Disease Resolve d 2023-0 8-29 00:00: 00 2023-03-17 00:00:00 2023-03-17 15:14:32 [facility] Acute cough Acute cough Disease Resolve d 2022-0 8-29 00:00: 00 2023-03-17 00:00:00 2023-03-17 15:14:05 [facility] Nasal congestion Nasal congestion Disease Resolve d 2022-0 8-29 00:00: 00 2023-03-17 00:00:00 2023-03-17 15:14:08 [facility] Cellulitis of other specified site Cellulitis of other specified site Disease Resolve d 2022-0 8-29 00:00: 00 2023-03-17 00:00:00 2023-03-17 15:14:04 [facility] Viral upper respirator y tract infection Viral upper respirator y tract infection Disease Resolve d 2022-0 8-29 00:00: 00 2023-03-17 00:00:00 2023-03-17 15:14:01 [facility] Chest pain, unspecifie d type Chest pain, unspecifie d type Disease Resolve d 2022-0 7-31 00:00: 00 2023-03-17 00:00:00 2023-03-17 15:14:10 [facility] Right foot pain Right foot pain Disease Resolve d 2022-0 7-31 00:00: 00 2023-03-17 00:00:00 2023-03-17 15:14:07 [facility] Cervical cancer screening Cervical cancer screening Disease Resolve d 2022-0 5-31 00:00: 00 2023-03-17 00:00:00 2023-03-17 15:13:58 [facility] Muscle twitching Muscle twitching Disease Resolve d 2022-0 2-13 00:00: 00 2023-03-17 00:00:00 2023-03-17 15:13:53 [facility] Encounter to establish care Encounter to establish care Disease Resolve d 2022-0 2-06 00:00: 00 2023-03-17 00:00:00 2023-03-17 15:14:16 [facility] Encounter to establish care Encounter to establish care Disease Resolve d 2-06 00:00: 00 2023-03-17 00:00:00 2023-03-17 15:14:16 [facility] Disease Resolve d 9-13 00:00: 00 2023-03-17 00:00:00 2023-03-17 15:14:30 [facility] Allergies, Adverse Reactions, Alerts Allergy Name Allergy Type Status Severity Reaction(s) Onset Date Inactive Date Treating Clinician Comments Source [facility] IN[facility]EDI Active Med Hives 2022-05 00:00: 00 [facility] Latex Propensi ty to adverse reaction s Active Hives 2022-05 00:00: 00 [facility] NO KNOWN ALLERGIE S Drug Class Active [facility] Social History Social Habit Start Date Stop Date Quantity Comments Source History SDOH Food Worry [facility] Gender identity [facility] Alcoholic beverage intake 2023-12-31 00:00:00 2023-12-31 00:00:00 Ex-drinker (finding) [facility] History of Social function 2023-11-06 00:00:00 2023-11-06 00:00:[address] [facility] Alcohol intake 2023-04-29 00:00:00 2023-04-29 00:00:00 Ex-drinker (finding) [facility] Tobacco use and exposure 2023-03-31 00:00:00 2023-03-31 00:00:00 User of smokeless tobacco [facility] Tobacco Comment 2023-03-31 00:00:00 2023-03-31 00:00:00 Smoke weed daily [facility] Exposure to SARS-CoV-2 (event) 2022-11-09 00:00:00 2022-11-19 20:17:[address] [facility] History SDOH Alcohol Frequency 2022-10-07 00:00:00 2022-10-07 00:00:[address] [facility] History SDOH Alcohol Std Drinks 2022-10-07 00:00:00 2022-10-07 00:00:[address] [facility] History SDOH Alcohol Binge 2022-10-07 00:00:00 2022-10-07 00:00:[address] [facility] History SDOH Financial 2022-10-07 00:00:00 2022-10-07 00:00:[address] [facility] History SDOH Food Scarcity 2022-10-07 00:00:00 2022-10-07 00:00:[address] [facility] History SDOH Transport Med 2022-10-07 00:00:00 2022-10-07 00:00:[address] [facility] History SDOH Transport Non-Med 2022-10-07 00:00:00 2022-10-07 00:00:[address] [facility] History SDOH Housing Unable to Pay 2022-10-07 00:00:00 2022-10-07 00:00:[address] [facility] History SDOH Housing Places Lived 2022-10-07 00:00:00 2022-10-07 00:00:[address] [facility] History SDOH Housing Homeless Last Year 2022-10-07 00:00:00 2022-10-07 00:00:[address] [facility] Sex assigned at 1995 00:00:00 1995 00:00:[address] [facility] Smoking Status Start Date Stop Date Source Never smoked tobacco [facility] Medications Ordered Medication Name Filled Medication Name Start Date Stop Date Current Medication? Ordering Clinician Indication Dosage Frequency Signature (SIG) Comments Components Source dicyclomine 20 mg tablet 08-18 00:00: 00 Yes 1mg Richard Arcos ondansetron 8 mg disintegrat ing tablet 08-18 00:00: 00 Yes 1mg Richard Arcos buspirone 10 mg tablet 08-16 00:00: 00 Yes 1mg Richard Arcos trazodone 100 mg tablet 08-16 00:00: 00 Yes 1mg Richard Arcos Effexor XR 75 mg capsule,ext ended release 08-16 00:00: 00 Yes 1mg Richard Arcos Effexor XR 37.5 mg capsule,ext ended release 2024-0 3-31 00:00: 00 Yes 1mg Richard Arcos buspirone 10 mg tablet 2024-0 3-03 00:00: 00 Yes 1mg Richard Arcos trazodone 100 mg tablet 2024-0 3-03 00:00: 00 Yes 1mg Richard Arcos Effexor XR 75 mg capsule,ext ended release 2024-0 3-03 00:00: 00 Yes 1mg Richard Arcos Effexor XR 37.5 mg capsule,ext ended release 2024-0 3- 00:00: 00 Yes 1mg Richard Arcos buspirone 10 mg tablet 2024-0 2-03 00:00: 00 Yes 1mg Richard Arcos trazodone 100 mg tablet 2024-0 2-03 00:00: 00 Yes 1mg Richard Arcos Effexor XR 75 mg capsule,ext ended release 2024-0 2-03 00:00: 00 Yes 1mg Richard Arcos Effexor XR 37.5 mg capsule,ext ended release 0 2-03 00:00: 00 Yes 1mg Richard Arcos buspirone 10 mg tablet 2023-05 2-20 00:00: 00 Yes 1mg Richard Arcos trazodone 100 mg tablet 2023-05 2-20 00:00: 00 Yes 1mg Richard Arcos Effexor XR 75 mg capsule,ext ended release 2023-05 2-20 00:00: 00 Yes 1mg Richard Arcos Effexor XR 37.5 mg capsule,ext ended release 2023-05 2-20 00:00: 00 Yes 1mg Richard Arcos hydroxyzine pamoate 25 mg capsule 2023- 2-20 00:00: 00 Yes 1mg Richard Arcos buspirone 10 mg tablet 2023-05 1-05 00:00: 00 Yes 1mg Richard Arcos trazodone 100 mg tablet 2023-05 1-05 00:00: 00 Yes 1mg Richard Arcos Effexor XR 75 mg capsule,ext ended release 2023-05 1-05 00:00: 00 Yes 1mg Richard Arcos Effexor XR 37.5 mg capsule,ext ended release 2023-05 1-05 00:00: 00 Yes 1mg Richard Arcos hydroxyzine pamoate 25 mg capsule 2023-05 1-05 00:00: 00 Yes 1mg Richard Arcos buspirone 10 mg tablet 2023-05 0-25 00:00: 00 Yes 1mg Richard Arcos trazodone 100 mg tablet 2023-05 0-25 00:00: 00 Yes 1mg Richard Arcos Effexor XR 75 mg capsule,ext ended release 2023-05 0-25 00:00: 00 Yes 1mg Richard Arcos Effexor XR 37.5 mg capsule,ext ended release 2023-05 0-25 00:00: 00 Yes 1mg Richard Arcos hydroxyzine pamoate 25 mg capsule 2023-05 0-25 00:00: 00 Yes 1mg Richard Arcos buspirone 10 mg tablet 2023-05 0-08 00:00: 00 Yes 1mg Richard Arcos trazodone 100 mg tablet 2023-05 0-08 00:00: 00 Yes 1mg Richard Arcos Effexor XR 75 mg capsule,ext ended release 2023-05 0-08 00:00: 00 Yes 1mg Richard Arcos Effexor XR 37.5 mg capsule,ext ended release 2023-05 0-08 00:00: 00 Yes 1mg Richard Arcos hydroxyzine pamoate 25 mg capsule 2023-05 0-08 00:00: 00 Yes 1mg Richard Arcos trazodone 50 mg tablet 8-08 00:00: 00 Yes 51mg Richard Arcos Effexor XR 75 mg capsule,ext ended release 2023-0 8-08 00:00: 00 Yes 1mg Richard Arcos Effexor XR 37.5 mg capsule,ext ended release 4-0 8-08 00:00: 00 Yes 1mg Richard Arcos hydroxyzine pamoate 25 mg capsule 2023-0 8-08 00:00: 00 Yes 1mg Richard Carrillo Isrrael Effexor XR 75 mg capsule,ext ended release 4-0 7-11 00:00: 00 Yes 1mg Richard Carrillo Isr[place] Effexor XR 37.5 mg capsule,ext ended release 4-0 7-11 00:00: 00 Yes 1mg Richard Arcos Effexor XR 75 mg capsule,ext ended release 2024-0 6-10 00:00: 00 Yes 1mg Richard Arcos Effexor XR 37.5 mg capsule,ext ended release 2024-0 6-10 00:00: 00 Yes 1mg Richard Arcos Effexor XR 75 mg capsule,ext ended release 2024-0 6-06 00:00: 00 Yes 1mg Richard Arcos Effexor XR 37.5 mg capsule,ext ended release 2024-0 6-06 00:00: 00 Yes 1mg Richard Arcos Effexor XR 75 mg capsule,ext ended release 2024-0 4-10 00:00: 00 Yes 1mg Richard Arcos Effexor XR 37.5 mg capsule,ext ended release 2024-0 4-10 00:00: 00 Yes 1mg Richard Arcos Effexor XR 37.5 mg capsule,ext ended release 2024-0 4-08 00:00: 00 Yes 1mg Richard Arcos Effexor XR 75 mg capsule,ext ended release 4-0 4-08 00:00: 00 Yes 1mg Richard Arcos MELOXICAM 15 mg tablet 0 -19 00:00: 00 11-05 00:00 :00 No [id number] 9100 15mg TAKE 1 TABLET BY MOUTH ONCE DAILY NEEDED FOR PAIN (WRIST PAIN). [facility] TAKE 1 CAPSULE BY MOUTH EVERY DAY WITH FOOD 06-09 00:00: 00 Yes Richard Arcos TAKE 1 CAPSULE TWICE DAILY. 06-09 00:00: 00 09-24 00:00 :00 No 25 Richard Arcos TAKE 1 TABLET BY MOUTH ONCE DAILY 06-09 00:00: 00 09-24 00:00 :00 No 375 Richard Arcos tirzepatide (MOUNJARO) 2.5 mg/0.5 mL PnIj 2022-05 00:00: 00 11-05 00:00 :00 No [id number] 2.5mg inject 2.5 mg under the skin weekly. [facility] tirzepatide (MOUNJARO) 5 mg/0.5 mL PnIj 2022-05 00:00: 00 11-05 00:00 :00 No [id number] 5mg inject 5 mg under the skin weekly. [facility] levonorgest reL (MIRENA) 20 mcg/24 hours (8 yrs) 52 mg IUD 2022-05 10:48: 28 Yes as directed [facility] ergocalcife rol, vitamin D2, (VITAMIN D ORAL) 2022-05 10:48: 28 Yes Take by mouth daily. [facility] tirzepatide (MOUNJARO) 2.5 mg/0.5 mL PnIj 2022-05 00:00: 00 11-05 00:00 :00 No [id number] 2.5mg inject 2.5 mg under the skin weekly. [facility] TAKE 1 TABLET BY MOUTH ONCE DAILY NEEDED FOR PAIN (WRIST PAIN). 2022-05 00:00: 00 Yes Richard Arcos meloxicam 15 mg tablet 2022-05 00:00: 00 07-07 00:00 :00 No [id number] 9100 15mg Take 1 tablet by mouth once daily as needed for Pain (wrist pain). [facility] TAKE 1 CAPSULE BY MOUTH EVERY DAY 2022-05 00:00: 00 Yes Richard Arcos HYDROXYZINE PAMOATE 25 MG 2022-05 00:00: 00 Yes Richard Carrillo Isrrael TAKE 1 CAPSULE TWICE DAILY. 2022-05 00:00: 00 09-24 00:00 :00 No 25 Richard Arcos TAKE 1 CAPSULE ONCE DAILY WITH FOOD. 2022-05 00:00: 00 09-24 00:00 :00 No 75 Richard Arcos TAKE 1 TABLET BY MOUTH ONCE DAILY 2022-05 00:00: 00 09-24 00:00 :00 No 375 Richard Arcos lactated ringers IV infusion 1,000 mL 2022-05 16:30: 00 Yes 1000mL at 75 mL/hr, 1,000 mL, IV Infusion, CONTINUOUS , Starting on Fri04/07/23 at 1030, Until Discontinu ed, Routine, PACU [facility] HYDROcodone -acetaminop hen (NORCO) 10-325 mg tablet 1 tablet 2022-05 16:22: 30 Yes 1{tbl} 1 tablet, Oral, PRN, 1 dose, Starting on Fri04/07/23 at 1022, Until Discontinu ed, Routine, Pain (scale 7-10), DSU Recovery [facility] HYDROcodone -acetaminop hen (NORCO 5) 5-325 mg tablet 1 tablet 2022-05 16:22: 30 Yes 1{tbl} 1 tablet, Oral, PRN, 1 dose, Starting on Fri04/07/23 at 1022, Until Discontinu ed, Routine, Pain (scale 4-6), DSU Recovery [facility] ibuprofen (IBU) tablet 800 mg 2022-05 16:22: 30 Yes 800mg 800 mg, Oral, PRN, 1 dose, Starting on Fri04/07/23 at 1022, Until Discontinu ed, Routine, Pain (scale 1-3), DSU Recovery [facility] FENTanyl PF (SUBLIMAZE (PF)) injection 25 mcg 2022-05 16:22: 23 Yes 25ug 25 mcg, Slow IV Push, Q5MIN PRN, 4 doses, Starting on Fri04/07/23 at 1022, Until Discontinu ed, Routine, Pain (scale 4-6), PACU [facility] HYDROmorphO ne (DILAUDID) injection 0.2 mg 2022-05 16:22: 23 Yes .2mg 0.2 mg, Slow IV Push, Q5MIN PRN, 10 doses, Starting on Fri04/07/23 at 1022, Until Discontinu ed, Routine, Pain (scale 7-10), PACU
Us e approved by (Faculty): PACU USE -ANESTHESI A SERVICE-HY DROMORPHON E INJECTIONS [facility] ondansetron (ZOFRAN (PF)) injection 4 mg 2022-05 16:22: 23 04-07 16:26 :00 No 4mg 4 mg, Slow IV Push, PRN, 1 dose, Starting on Fri04/07/23 at 1022, Until Fri04/07/23 at 1026, Routine, Nausea and Vomiting (N/V), PACU [facility] ferric subsulfate (MONSEL'S) solution 2022-05 15:37: 00 04-07 16:01 :59 No PRN, Starting on Fri04/07/23 at 0937, Until Fri04/07/23 at 1001, Routine, Intra-op [facility] iodine strong (LUGOL'S) (LUGOL'S SOLUTION) 5 % solution 2022-05 15:29: 00 Yes PRN, Starting on Fri04/07/23 at 0929, Until Discontinu ed, Routine, Intra-op [facility] lidocaine-e pinephrine (XYLOCAINE WITH EPINEPHRINE ) 1 %-1:100,000 injection 2022-05 15:29: 00 04-07 16:01 :59 No PRN, Starting on Fri04/07/23 at 0929, Until Fri04/07/23 at 1001, Routine, Intra-op [facility] sodium chloride 0.9 % irrigation solution 2022-05 15:28: 00 04-07 16:01 :59 No PRN, Starting on Fri04/07/23 at 0928, Until Fri04/07/23 at 1001, Intra-op [facility] lactated ringers IV infusion 1,000 mL 2022-05 13:45: 00 04-07 13:52 :00 No 1000mL at 42 mL/hr, 1,000 mL, IV Infusion, ONCE, 1 dose, On Fri04/07/23 at 0745, Routine, DSU Pre-op [facility] levonorgest reL (MIRENA) 20 mcg/24 hours (8 yrs) 52 mg IUD 2022-05 11:55: 20 Yes as directed [facility] ergocalcife rol, vitamin D2, (VITAMIN D ORAL) 2022-05 11:55: 20 Yes Take by mouth daily. [facility] HYDROCODONE BITARTRATE/ ACETAMINOPH E N 5-325 MG TABS 2022-05 00:00: 00 Yes Richard Arcos HYDROcodone -acetaminop hen 5-325 mg tablet 2022-05 00:00: 00 04-15 05:59 :00 No [id number] 1{tbl} Take 1 tablet by mouth every 6 (six) hours as needed for Pain (scale 4-6) or Pain (scale 7-10) for up to 7 days. Indication s: acute pain [facility] ergocalcife rol, vitamin D2, (VITAMIN D ORAL) 2022-05 11:11: 42 Yes Take by mouth daily. [facility] levonorgest reL (MIRENA) 20 mcg/24 hours (8 yrs) 52 mg IUD 2022-05 11:11: 42 Yes as directed [facility] VENLAFAXINE HCL ER 37.5 MG CAPSULE, EXT RELEASE 24 HR 2022-05 00:00: 00 Yes Richard Arcos hydrOXYzine 25 mg capsule 2022-05 00:00: 00 Yes 25mg Take 1 capsule by mouth at bedtime. [facility] VENLAFAXINE HYDROCHLORI DE ER 37.5 MG CP24 2022-05 00:00: 00 Yes Richard Arcos TAKE 1 CAPSULE TWICE DAILY. 2022-05 00:00: 00 09-24 00:00 :00 No 25 Richard Arcos TAKE 1 TABLET BY MOUTH ONCE DAILY 2022-05 00:00: 00 09-24 00:00 :00 No 375 Richard Arcos TAKE 1 CAPSULE ONCE DAILY WITH FOOD. 2022-05 00:00: 00 09-24 00:00 :00 No 75 Richard Arcos venlafaxine XR 37.5 mg 24 hr capsule 2022-05 00:00: 00 03-20 00:00 :00 No 37.5mg Take 1 capsule by mouth in the morning. [facility] VENLAFAXINE HCL ER 37.5 MG CP24 02-13 00:00: 00 Yes Richard Arcos TAKE 1 CAPSULE TWICE DAILY. 02-13 00:00: 00 09-24 00:00 :00 No 25 Richard Arcos TAKE 1 TABLET BY MOUTH ONCE DAILY 02-13 00:00: 00 09-24 00:00 :00 No 375 Richard Arcos TAKE 1 CAPSULE ONCE DAILY WITH FOOD. 02-13 00:00: 00 09-24 00:00 :00 No 75 Richard Arcos TAKE 1 CAPSULE BY MOUTH TWICE A DAY 01-14 00:00: 00 Yes Richard Arcos TAKE 1 TABLET BY MOUTH IN THE MORNING AND IN THE EVENING FOR 7 DAYS 01-14 00:00: 00 Yes Richard Acros TAKE 1 CAPSULE ONCE DAILY WITH FOOD. 01-14 00:00: 00 09-24 00:00 :00 No 75 Richard Arcos TAKE 1 CAPSULE TWICE DAILY. 01-14 00:00: 00 09-24 00:00 :00 No 25 Richard Arcos TAKE 1 TABLET BY MOUTH ONCE DAILY 01-14 00:00: 00 09-24 00:00 :00 No 375 Richard Arcos sulfamethox azole-trime thoprim (BACTRIM DS) 800-160 mg per tablet 01-14 00:00: 00 01-22 04:59 :00 No [id number] 1{tbl} Take 1 tablet by mouth in the morning and 1 tablet in the evening. Do all this for 7 days. [facility] TIZANIDINE HCL 2 MG TABS 01-07 00:00: 00 Yes Richard Arcos tiZANidine 2 mg capsule 01-07 00:00: 00 11-05 00:00 :00 No [id number] 2mg Take 1 capsule by mouth in the morning and 1 capsule at noon and 1 capsule in the evening. [facility] TAKE 1 CAPSULE ONCE DAILY WITH FOOD. 12-18 00:00: 00 09-24 00:00 :00 No 75 Richard Arcos TAKE 1 CAPSULE TWICE DAILY. 12-18 00:00: 00 09-24 00:00 :00 No 25 Richard Arcos TAKE 1 TABLET BY MOUTH ONCE DAILY 8- 00:00: 00 09-24 00:00 :00 No 375 Richard Arcos TAKE 1 CAPSULE BY MOUTH TWICE DAILY 11-18 00:00: 00 Yes Richard Arcos VENLAFAXINE HYDROCHLORI DE ER 37.5 MG CP24 11-18 00:00: 00 Yes Richard Arcos TAKE 1 CAPSULE TWICE DAILY. 11-18 00:00: 00 09-24 00:00 :00 No 25 Richard Arcos TAKE 1 CAPSULE ONCE DAILY WITH FOOD. 11-18 00:00: 00 09-24 00:00 :00 No 75 Richard Arcos TAKE 1 TABLET BY MOUTH ONCE DAILY 11-18 00:00: 00 09-24 00:00 :00 No 375 Richard Arcos VENLAFAXINE HYDROCHLORI DE ER 37.5 MG CP24 10-21 00:00: 00 Yes Richard Arcos TAKE 1 TABLET BY MOUTH ONCE DAILY 10-21 00:00: 00 09-24 00:00 :00 No 375 Richard Arcos TAKE 1 CAPSULE ONCE DAILY WITH FOOD. 10-21 00:00: 00 09-24 00:00 :00 No 75 Richard Arcos DICLOFENAC SODIUM DR 25 MG TBEC 10-04 00:00: 00 Yes Richard Arcos diclofenac 25 mg EC tablet 10-04 00:00: 00 01-07 00:00 :00 No [id number] 25mg Take 1 tablet by mouth in the morning and 1 tablet at noon and 1 tablet in the evening. Take with meals. [facility] TAKE 1 TABLET TWICE DAILY. 09-30 00:00: 00 09-24 00:00 :00 No 1 Richard Arcos TAKE 1 TABLET BY MOUTH ONCE DAILY 09-30 00:00: 00 09-24 00:00 :00 No 375 Richard Arcos TAKE 1 CAPSULE BY MOUTH ONCE DAILY WITH FOOD 09-30 00:00: 09-24 00:00 :00 No Richard Arcos cloNIDine 0.1 mg tablet 09-30 00:00: 00 01-07 00:00 :00 No .1mg Take 1 tablet by mouth in the morning and 1 tablet in the evening. [facility] VENLAFAXINE HCL ER 37.5 MG TABLET, EXTENDED RELEASE 24 HR 09-17 00:00: 00 Yes Richard Arcos TAKE 1 TABLET BY MOUTH ONCE DAILY 09-16 00:00: 00 09-24 00:00 :00 No 375 Richard Arcos levonorgest reL (MIRENA) 20 mcg/24 hours (8 yrs) 52 mg IUD 09-11 10:57: 03 Yes as directed [facility] Venlafaxine 37.5 mg TR24 09-02 00:00: 00 Yes 1{tbl} Take 1 tablet by mouth in the morning. [facility] hydrOXYzine 10 mg tablet 09-02 00:00: 00 11-05 00:00 :00 No 25mg Take 2.5 tablets by mouth at bedtime. [facility] TAKE 1 CAPSULE ONCE DAILY WITH FOOD. 09-02 00:00: 00 09-24 00:00 :00 No 75 Richard Arcos TAKE 1 TABLET TWICE DAILY NEEDED. 09-02 00:00: 00 09-24 00:00 :00 No 10 Richard Arcos TAKE 1 TABLET BY MOUTH ONCE DAILY 09-02 00:00: 00 09-24 00:00 :00 No 375 Richard Arcos TAKE 1 CAPSULE ONCE DAILY WITH FOOD. 08-21 00:00: 00 09-24 00:00 :00 No 75 Richard Arcos TAKE 1 CAPSULE 3 TIMES DAILY NEEDED FOR ANXIETY. 08-21 00:00: 00 09-24 00:00 :00 No 25 Richard Arcos HYDROXYZINE PAMOATE 25 MG 08-21 00:00: 00 09-24 00:00 :00 No Richard Lorena Arcos TAKE 1 TABLET TWICE DAILY NEEDED. 08-05 00:00: 00 09-24 00:00 :00 No 10 Richard Arcos TAKE 1 CAPSULE ONCE DAILY WITH FOOD. 08-05 00:00: 00 09-24 00:00 :00 No 75 Richard Arcos TAKE 1 CAPSULE ONCE DAILY WITH FOOD. 07-22 00:00: 00 09-24 00:00 :00 No 75 Richard Arcos TAKE 1 CAPSULE ONCE DAILY WITH FOOD. 07-10 00:00: 00 09-24 00:00 :00 No 75 Richard Arcos VALACYCLOVI R HCL 1 GM TABS 07-01 00:00: 00 09-24 00:00 :00 No Richard Arcos TAKE 1 CAPSULE BY MOUTH IN THE MORNING THEN 1 CAPSULE AT NOON AND 1 CAPSULE IN THE EVENING 07-01 00:00: 00 09-24 00:00 :00 No Richard Arcos gabapentin 100 mg capsule 07-01 00:00: 00 10-04 00:00 :00 No [id number] 100mg Take 1 capsule by mouth in the morning and 1 capsule at noon and 1 capsule in the evening. [facility] valACYclovi r 1 gram tablet 07-01 00:00: 00 07-09 05:59 :00 No [id number] 1g Take 1 tablet by mouth in the morning and 1 tablet at noon and 1 tablet in the evening. Do all this for 7 days. [facility] metoprolol succinate XL 25 mg 24 hr tablet 06-24 15:18: 43 06-24 00:00 :00 No 1 tablet [facility] metformin ER 500 mg 24 hr tablet 06-24 15:18: 31 06-24 00:00 :00 No 1 tablet with evening meal [facility] citalopram 40 mg tablet 06-24 15:18: 21 06-24 00:00 :00 No 1 tablet [facility] levonorgest reL (MIRENA) 20 mcg/24 hours (8 yrs) 52 mg IUD 06-24 15:12: 55 Yes as directed [facility] busPIRone 5 mg tablet 1-11 00:00: 00 10-04 00:00 :00 No 5mg Take 1 tablet by mouth 2 (two) times daily as needed. [facility] ESCITALOPRA M OXALATE 20 MG TABS 2021-05 00:00: 00 09-24 00:00 :00 No Richard Arcos TAKE 1 TABLET BY MOUTH EVERY 8 HOURS NEEDED FOR PAIN 2021-05 00:00: 00 09-24 00:00 :00 No Richard Lorena Arcos CHLORHEXIDI NE GLUCONATE 0.12 % SOLN 2021-05 00:00: 00 09-24 00:00 :00 No Richard Lorena Arcos AMOXICILLIN /CLAVULANAT E POTASSIUM 875-125 MG TABS 2021-05 00:00: 00 09-24 00:00 :00 No Richard Arcos BUSPIRONE HYDROCHLORI DE 5 MG TABS 01-25 00:00: 00 Yes Richard Arcos TAKE 1 TABLET BY MOUTH IN THE MORNING 01-25 00:00: 00 Yes Richard Arcos BUSPIRONE HYDROCHLORI DE 5 MG TABS 12-30 00:00: 00 Yes Richard Arcos ESCITALOPRA M OXALATE 20 MG TABS 12-30 00:00: 00 Yes Richard Arcos TAKE 1 TABLET BY MOUTH IN THE MORNING 11-14 00:00: 00 Yes Richard Arcos TAKE 1 TABLET BY MOUTH IN THE MORNING 11-14 00:00: 00 Yes Richard Arcos TAKE 1 TABLET BY MOUTH TWICE DAILY 10-20 00:00: 00 Yes Richard Arcos TAKE 1 TABLET BY MOUTH IN THE MORNING 10-20 00:00: 00 Yes Richard Arcos ESCITALOPRA M OXALATE 10 MG TABS 09-20 00:00: 00 Yes Richard Arcos levothyroxi ne 50 mcg tablet 11-13 00:00: 00 06-24 00:00 :00 No [id number] 50ug Take 1 tablet by mouth every morning. [facility] Blood Pressure Monitor (BLOOD PRESSURE KIT) Kit 08-21 00:00: 00 Yes [id number] Use as directed [facility] Blood Pressure Monitor (BLOOD PRESSURE KIT) Kit 08-21 00:00: 00 04-01 00:00 :00 No [id number] Use as directed [facility] Vital Signs Vital Name Observation Time Observation Value Comments Pineda padilla Systolic blood pressure 2023-12-31 15:28:00 110 mm[Hg] [facility] Diastolic blood pressure 2023-12-31 15:28:00 68 mm[Hg] [facility] Heart rate 2023-12-31 15:28:00 84 /min [facility] Body temperature 2023-12-31 15:28:[address] [facility] Respiratory rate 2023-12-31 15:28:00 17 /min [facility] Body height 2023-12-31 15:28:00 170.2 cm [facility] Body weight 2023-12-31 15:28:00 133.675 kg [facility] BMI 2023-12-31 15:28:00 46.16 kg/m2 [facility] Systolic blood pressure 2023-11-06 12:45:00 109 mm[Hg] [facility] Diastolic blood pressure 2023-11-06 12:45:00 63 mm[Hg] [facility] Heart rate 2023-11-06 12:45:00 84 /min [facility] Body temperature 2023-11-06 12:45:[address] [facility] Respiratory rate 2023-11-06 12:45:00 18 /min [facility] Body height 2023-11-06 12:45:00 170.2 cm Univ [facility] Body weight 2023-11-06 12:45:00 132.178 kg Univ [facility] BMI 2023-11-06 12:45:00 45.64 kg/m2 [facility] Systolic blood pressure 2023-05-06 16:15:00 101 mm[Hg] [facility] Diastolic blood pressure 2023-05-06 16:15:00 69 mm[Hg] [place] [facility] Heart rate 2023-05-06 16:15:00 73 /min [facility] Body temperature 2023-05-06 16:15:[address] [facility] Body height 2023-05-06 16:15:00 170.2 cm [facility] Body weight 2023-05-06 16:15:00 130.046 kg [facility] BMI 2023-05-06 16:15:00 44.90 kg/m2 [facility] Systolic blood pressure 2023-04-29 16:47:00 110 mm[Hg] [place] [facility] Diastolic blood pressure 2023-04-29 16:47:00 61 mm[Hg] [facility] Heart rate 2023-04-29 16:47:00 76 /min [facility] Respiratory rate 2023-04-29 16:47:00 18 /min [facility] Body height 2023-04-29 16:47:00 170.2 cm [facility] Body weight 2023-04-29 16:47:00 127.914 kg [facility] BMI 2023-04-29 16:47:00 44.17 kg/m2 [facility] Systolic blood pressure 2023-04-23 19:51:00 117 mm[Hg] [place] [facility] Diastolic blood pressure 2023-04-23 19:51:00 79 mm[Hg] [facility] Heart rate 2023-04-23 19:51:00 81 /min [facility] Body height 2023-04-23 19:51:00 170.2 cm [facility] Body weight 2023-04-23 19:51:00 127.506 kg [facility] BMI 2023-04-23 19:51:00 44.03 kg/m2 [facility] Oxygen saturation in Arterial blood by Pulse oximetry 2023-04-23 19:51:00 99 /min [facility] Heart rate 2023-04-07 16:54:00 71 /min [facility] Oxygen saturation in Arterial blood by Pulse oximetry 2023-04-07 16:54:00 92 /min [facility] Systolic blood pressure 2023-04-07 16:53:00 115 mm[Hg] [facility] Diastolic blood pressure 2023-04-07 16:53:00 91 mm[Hg] [facility] Respiratory rate 2023-04-07 16:53:00 17 /min [facility] Body temperature 2023-04-07 16:03:[address] [facility] Body height 2023-03-31 20:00:00 170.2 cm [facility] Body weight 2023-03-31 20:00:00 128.822 kg [facility] BMI 2023-03-31 20:00:00 44.48 kg/m2 [facility] Systolic blood pressure 2023-04-07 13:48:00 110 mm[Hg] [facility] Diastolic blood pressure 2023-04-07 13:48:00 75 mm[Hg] [facility] Heart rate 2023-04-07 13:48:00 75 /min [facility] Body temperature 2023-04-07 13:48:[address] [facility] Respiratory rate 2023-04-07 13:48:00 17 /min [facility] Oxygen saturation in Arterial blood by Pulse oximetry 2023-04-07 13:48:00 100 /min [facility] Body height 2023-03-31 20:00:00 170.2 cm [facility] Body weight 2023-03-31 20:00:00 128.822 kg [facility] BMI 2023-03-31 20:00:00 44.48 kg/m2 [facility] Systolic blood pressure 2023-04-01 17:04:00 128 mm[Hg] [facility] Diastolic blood pressure 2023-04-01 17:04:00 83 mm[Hg] [facility] Heart rate 2023-04-01 17:04:00 65 /min [facility] Body temperature 2023-04-01 17:04:[address] [facility] Respiratory rate 2023-04-01 17:04:00 16 /min [facility] Body height 2023-04-01 17:04:00 170.2 cm [facility] Body weight 2023-04-01 17:04:00 129.23 kg [facility] BMI 2023-04-01 17:04:00 44.62 kg/m2 [facility] Oxygen saturation in Arterial blood by Pulse oximetry 2023-04-01 17:04:00 97 /min [facility] Systolic blood pressure 2023-03-20 14:56:00 133 mm[Hg] [facility] Diastolic blood pressure 2023-03-20 14:56:00 59 mm[Hg] [facility] Heart rate 2023-03-20 14:56:00 64 /min [facility] Body temperature 2023-03-20 14:56:[address] [facility] Respiratory rate 2023-03-20 14:56:00 16 /min [facility] Body height 2023-03-20 14:56:00 170.2 cm [facility] Body weight 2023-03-20 14:56:00 129.91 kg [facility] BMI 2023-03-20 14:56:00 44.86 kg/m2 [facility] Oxygen saturation in Arterial blood by Pulse oximetry 2023-03-20 14:56:00 97 /min [facility] Systolic blood pressure 2023-03-17 19:52:00 128 mm[Hg] [facility] Diastolic blood pressure 2023-03-17 19:52:00 63 mm[Hg] [facility] Heart rate 2023-03-17 19:52:00 78 /min [facility] Body temperature 2023-03-17 19:52:[address] [facility] Respiratory rate 2023-03-17 19:52:00 17 /min [facility] Body height 2023-03-17 19:52:00 170.2 cm [facility] Body weight 2023-03-17 19:52:00 129.275 kg [facility] BMI 2023-03-17 19:52:00 44.64 kg/m2 [facility] Systolic blood pressure 2023-02-10 15:47:00 113 mm[Hg] [facility] Diastolic blood pressure 2023-02-10 15:47:00 78 mm[Hg] [facility] Heart rate 2023-02-10 15:47:00 66 /min [facility] Respiratory rate 2023-02-10 15:47:00 18 /min [facility] Body height 2023-02-10 15:47:00 170.2 cm [facility] Body weight 2023-02-10 15:47:00 128.277 kg [facility] BMI 2023-02-10 15:47:00 44.29 kg/m2 [facility] Oxygen saturation in Arterial blood by Pulse oximetry 2023-02-10 15:47:00 99 /min [facility] Systolic blood pressure 2023-01-14 14:57:00 107 mm[Hg] [facility] Diastolic blood pressure 2023-01-14 14:57:00 73 mm[Hg] [facility] Heart rate 2023-01-14 14:57:00 98 /min [facility] Body height 2023-01-14 14:57:00 170.2 cm [facility] Body weight 2023-01-14 14:57:00 127.461 kg [facility] BMI 2023-01-14 14:57:00 44.01 kg/m2 [facility] Oxygen saturation in Arterial blood by Pulse oximetry 2023-01-14 14:57:00 100 /min [facility] Systolic blood pressure 2023-01-07 16:25:00 117 mm[Hg] [facility] Diastolic blood pressure 2023-01-07 16:25:00 71 mm[Hg] [facility] Heart rate 2023-01-07 16:25:00 65 /min [facility] Body height 2023-01-07 16:25:00 170.2 cm [facility] Body weight 2023-01-07 16:25:00 127.007 kg [facility] BMI 2023-01-07 16:25:00 43.85 kg/m2 [facility] Oxygen saturation in Arterial blood by Pulse oximetry 2023-01-07 16:25:00 98 /min [facility] Systolic blood pressure 2022-12-16 18:26:00 106 mm[Hg] [facility] Diastolic blood pressure 2022-12-16 18:26:00 74 mm[Hg] [facility] Heart rate 2022-12-16 18:26:00 75 /min [facility] Body height 2022-12-16 18:26:00 170.2 cm [facility] Body weight 2022-12-16 18:26:00 128.368 kg [facility] BMI 2022-12-16 18:26:00 44.32 kg/m2 [facility] Oxygen saturation in Arterial blood by Pulse oximetry 2022-12-16 18:26:00 98 /min [facility] Systolic blood pressure 2022-11-20 16:50:00 122 mm[Hg] [facility] Diastolic blood pressure 2022-11-20 16:50:00 86 mm[Hg] [facility] Heart rate 2022-11-20 16:49:00 81 /min [facility] Body height 2022-11-20 16:49:00 170.2 cm [facility] Body weight 2022-11-20 16:49:00 130.182 kg [facility] BMI 2022-11-20 16:49:00 44.95 kg/m2 [facility] Oxygen saturation in Arterial blood by Pulse oximetry 2022-11-20 16:49:00 98 /min [facility] Systolic blood pressure 2022-10-30 16:30:00 103 mm[Hg] [facility] Diastolic blood pressure 2022-10-30 16:30:00 71 mm[Hg] [facility] Heart rate 2022-10-30 16:20:00 72 /min [facility] Body temperature 2022-10-30 16:20:[address] [facility] Respiratory rate 2022-10-30 16:20:00 18 /min [facility] Body height 2022-10-30 16:20:00 170.2 cm [facility] Body weight 2022-10-30 16:20:00 130.999 kg [facility] BMI 2022-10-30 16:20:00 45.23 kg/m2 [facility] Oxygen saturation in Arterial blood by Pulse oximetry 2022-10-30 16:20:00 97 /min [facility] Systolic blood pressure 2022-10-16 13:14:00 100 mm[Hg] [facility] Diastolic blood pressure 2022-10-16 13:14:00 70 mm[Hg] [facility] Heart rate 2022-10-16 13:14:00 75 /min [facility] Body temperature 2022-10-16 13:14:[address] [facility] Body height 2022-10-16 13:14:00 170.2 cm [facility] Body weight 2022-10-16 13:14:00 133.358 kg [facility] BMI 2022-10-16 13:14:00 46.05 kg/m2 [facility] Oxygen saturation in Arterial blood by Pulse oximetry 2022-10-16 13:14:00 99 /min [facility] Systolic blood pressure 2022-10-07 16:29:00 103 mm[Hg] [facility] Diastolic blood pressure 2022-10-07 16:29:00 81 mm[Hg] [facility] Heart rate 2022-10-07 16:29:00 70 /min [facility] Body temperature 2022-10-07 16:29:[address] [facility] Respiratory rate 2022-10-07 16:29:00 20 /min [facility] Body height 2022-10-07 16:29:00 173.7 cm [facility] Body weight 2022-10-07 16:29:00 134.401 kg [facility] BMI 2022-10-07 16:29:00 44.53 kg/m2 [facility] Oxygen saturation in Arterial blood by Pulse oximetry 2022-10-07 16:29:00 100 /min [facility] Systolic blood pressure 2022-10-04 18:57:00 98 mm[Hg] [facility] Diastolic blood pressure 2022-10-04 18:57:00 78 mm[Hg] [facility] Heart rate 2022-10-04 18:56:00 77 /min [facility] Body temperature 2022-10-04 18:56:[address] [facility] Body height 2022-10-04 18:56:00 170.2 cm [facility] Body weight 2022-10-04 18:56:00 133.811 kg [facility] BMI 2022-10-04 18:56:00 46.20 kg/m2 [facility] Systolic blood pressure 2022-09-11 15:46:00 112 mm[Hg] [facility] Diastolic blood pressure 2022-09-11 15:46:00 79 mm[Hg] [facility] Heart rate 2022-09-11 15:46:00 65 /min [facility] Body temperature 2022-09-11 15:46:[address] [facility] Respiratory rate 2022-09-11 15:46:00 18 /min [facility] Body height 2022-09-11 15:46:00 170.2 cm [facility] Body weight 2022-09-11 15:46:00 134.265 kg [facility] BMI 2022-09-11 15:46:00 46.36 kg/m2 [facility] Oxygen saturation in Arterial blood by Pulse oximetry 2022-09-11 15:46:00 98 /min r/a [facility] Systolic blood pressure 2022-07-01 21:35:00 107 mm[Hg] [facility] Diastolic blood pressure 2022-07-01 21:35:00 60 mm[Hg] [facility] Heart rate 2022-07-01 21:35:00 81 /min [facility] Body temperature 2022-07-01 21:35:[address] [facility] Body height 2022-07-01 21:35:00 170.2 cm [facility] Body weight 2022-07-01 21:35:00 136.079 kg [facility] BMI 2022-07-01 21:35:00 46.99 kg/m2 [facility] Oxygen saturation in Arterial blood by Pulse oximetry 2022-07-01 21:35:00 98 /min [facility] Body height 2022-06-24 21:13:00 170.2 cm [facility] Body weight 2022-06-24 21:13:00 136.533 kg [facility] BMI 2022-06-24 21:13:00 47.14 kg/m2 [facility] Oxygen saturation in Arterial blood by Pulse oximetry 2022-06-24 21:13:00 99 /min [facility] Systolic blood pressure 2022-06-24 21:13:00 97 mm[Hg] [facility] Diastolic blood pressure 2022-06-24 21:13:00 64 mm[Hg] [facility] Heart rate 2022-06-24 21:13:00 73 /min [facility] Body temperature 2022-06-24 21:13:[address] [facility] BP Systolic 2024-08-18 15:46:00 96 mm[Hg] Pillo Arcos BP Diastolic 2024-08-18 15:46:00 71 mm[Hg] Dennys Arcos Weight Measured 2024-08-18 15:46:00 286.60 pounds Richard Arcos Height Measured 2024-08-18 15:46:00 67.50 inches Richard Carrillo Isrrael Body Temperature 2024-08-18 15:46:00 97.80 degrees Richard F Isrrael Heart Rate 2024-08-18 15:46:00 83.00 /min Francisca en F Isrrael Respiratory Rate 2024-08-18 15:46:00 17.00 /min Richard F Isrrael BP Systolic 2023-01-08 08:12:00 116 mm[Hg] Step hen F Isrrael BP Diastolic 2023-01-08 08:12:00 79 mm[Hg] Dennys phen F Isrrael Weight Measured 2023-01-08 08:12:00 280.00 pounds Rcihard F Isrrael Height Measured 2023-01-08 08:12:00 67.50 inches Richard F Isrrael Body Temperature 2023-01-08 08:12:00 98.20 degrees Richard F Isrrael Heart Rate 2023-01-08 08:12:00 71.00 /min Francisca en F Isrrael Respiratory Rate 2023-01-08 08:12:00 19.00 /min Richard F Isrrael BP Systolic 2022-07-10 10:45:00 124 mm[Hg] Step hen F Isrrael BP Diastolic 2022-07-10 10:45:00 89 mm[Hg] Dennys phen F Isrrael Weight Measured 2022-07-10 10:45:00 302.00 pounds Richard F Isrrael Height Measured 2022-07-10 10:45:00 67.50 inches Richard F Isrrael Body Temperature 2022-07-10 10:45:00 98.20 degrees Richard F Isrrael Heart Rate 2022-07-10 10:45:00 65.00 /min Francisca en F Isrrael Respiratory Rate 2022-07-10 10:45:00 18.00 /min Richard F Isrrael Procedures Procedure Date / Time Performed Performing Clinician Source CERVICAL CONIZATION 2023-04-07 14:54:[address] Bárbara Hernandez [facility] DSU PRE-OP 2023-04-01 06:01:00 Doctor Unass igned, [place] [facility] INSURANCE CORRESPONDENCE 2023-03-27 06:01:00 Doc tor Unassigned, [place] [facility] INSURANCE CORRESPONDENCE 2023-03-27 06:01:00 Doc liliana Unassigned, [place] [facility] DISCLOSURE AND CONSENT MEDICAL & SURGICAL PROCEDURES - FEMALM 2023-03-17 05:01:00 Doctor Unassigned, [place] [facility] POCT TEST 2023-03-17 00:00:00 Bárbara Hernandez [facility] DISABILITY/FMLA 2023-01-21 05:01:00 Doctor Unass igned, [place] [facility] XR FOOT 3+ VW RIGHT 2023-01-07 18:06:01 Criss Leyva [facility] POCT TEST 2023-01-07 17:03:00 Criss Leyva [facility] SLEEP STUDY DATA REPORT 2022-11-14 05:01:00 Doct or Unassigned, [place] [facility] LAB ONLY PAP SMEAR-LIQUID BASED 2022-10-16 14:06:[address] [facility] GALV ONLY - VAGINAL PATHOGENS BY NUCLEIC ACID TESTING 2022-10-16 14:06:[address] [facility] PAP SMEAR-LIQUID BASED-CP 2022-10-16 14:06:[address] [facility] POCT TEST 2022-10-04 20:08:00 Criss Leyva [facility] VITAMIN B12, LEVEL 2022-09-11 16:30:[address] [facility] FREE T4 2022-09-11 16:30:00 [facility] THYROID STIMULATING HORMONE 2022-09-11 16:30:[address] [facility] URINALYSIS 2022-09-11 16:30:00 Jelly Waters [facility] ANTI-SSB(LA) 2022-09-11 16:30:00 Jelly [facility] ANTI-DOUBLE STRANDED DNA 2022-09-11 16:30:[address] [facility] C-REACTIVE PROTEIN 2022-07-01 22:27:00 Criss Leyva [facility] SEDIMENTATION RATE 2022-07-01 22:27:00 Criss Leyva [facility] VITAMIN D, 25-OH 2022-07-01 22:27:00 Criss Leyva [facility] CONSENT/REFUSAL FOR DIAGNOSIS AND TREATMENT 2022-06-24 20:59:39 Doctor Unassigned, [place] [facility] ASSIGNMENT OF BENEFITS 2022-06-24 20:59:23 Docto r Unassigned, [place] [facility] FREE T4 2018-12-22 22:15:00 Jeannie Mendieta [facility] THYROID STIMULATING HORMONE 2018-12-22 22:15:[address] [facility] ASSIGNMENT OF BENEFITS 2018-12-22 21:51:15 Dochunter r Unassigned, [place] [facility] Encounters Start Date/Time End Date/Time Encounter Type Admission Type Attending [facility] Care Department Encounter ID Source 2023-05-06 12:35:02 Outpatient BRENNEN ORGER [facility] [id number] [facility] 2024-08-19 08:29:39 2024-08-19 08:29:39 Outpatient [facility] [id number] Richard Carrillo Isrrael 2024-08-18 15:28:41 2024-08-18 15:28:41 Outpatient [facility] S[facility] [id number] Richard Carrillo Isrrael 2024-08-18 00:00:00 2024-08-18 00:00:00 Outpatient Visit [facility] [id number] Richard Carrillo Isrrael 2024-07-19 09:17:44 2024-07-19 09:17:44 Outpatient [facility] SFA [id number] Richard Carrillo Isrrael 2024-07-10 10:04:32 2024-07-10 10:04:32 Outpatient [facility] SFA [id number] Richard Carrillo Isrrael 2024-07-09 11:01:34 2024-07-09 11:01:34 Outpatient [facility] S[facility] [id number] Richard Carrillo Isrrael 2024-06-21 08:25:59 2024-06-21 08:25:59 Outpatient [facility] SFA [id number] Richard Carrillo Isrrael 2024-02-23 00:00:00 2024-03-27 18:24:07 Patient Secure Msg Leyva [facility]?LIZET [facility] MEDICAL OFFICE BUILDING 1.2.840.114 350.1.13.10 4.2.7.2.686 [id number] [id number] [facility] 2024-03-23 09:27:15 2024-03-23 09:27:15 Outpatient SFA SFA [id number] Richard Arcos 2024-02-21 00:00:00 2024-02-23 15:55:27 Patient Secure Msg Leyva Criss [facility] 1.2.840.114 350.1.13.10 4.2.7.2.686 [id number] [facility] 2023-12-31 10:30:00 2023-12-31 10:45:22 Outpatient R MARJORIE BENÍTEZ [facility] [id number] [facility] 2023-12-31 10:30:00 2023-12-31 10:45:22 Office Visit Marjorie Benítez [facility] 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 [facility] 1.2.840.114 350.1.13.10 4.2.7.2.686 [id number] [facility] 2023-12-25 10:07:46 2023-12-25 10:07:46 Outpatient SFA SFA [id number] Richard Arcos 2023-12-22 00:00:00 2023-12-23 09:24:19 Telephone Marjorie Benítez [facility] 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 1.840.114 350.1.13.10 4.2.7.2.686 [id number] [facility] 2023-11-04 08:30:00 2023-11-04 08:30:00 Outpatient R LOWE-TD S, BÁRBARA LOWE-TD S, BÁRBARA [facility] [id number] [facility] 2023-10-28 08:30:00 2023-10-28 08:30:00 Outpatient R LOWE-TD S, BÁRBARA LOWE-TD S, BÁRBARA [facility] [id number] [facility] 2023-10-27 17:28:24 2023-10-27 17:28:24 Outpatient SFA SFA [id number] Richard Arcos 2023-10-24 15:16:43 2023-10-24 15:16:43 Outpatient SFA SFA [id number] Richard Arcos 2023-08-27 11:41:54 2023-08-27 11:41:54 Outpatient SFA SFA [id number] Richard Arcos 2023-08-11 00:00:00 2023-08-11 00:00:00 Telephone VikaCriss el [facility] MEDICAL OFFICE BUILDING 1.840.114 350.1.13.10 4.2.7.2.686 [id number] [id number] [facility] 2023-07-06 00:00:00 2023-07-06 00:00:00 [facility] MEDICAL OFFICE BUILDING 1.840.114 350.1.13.10 4.2.7.2.686 [id number] [id number] [facility] 2023-05-06 10:58:37 2023-05-06 23:59:00 [facility] [id number] [facility] 2023-05-06 10:40:00 2023-05-06 23:59:00 Hospital Encounter An [facility] 1.2.840.114 350.1.13.10 4.2.7.2.686 [id number] [facility] 2023-05-06 10:10:00 2023-05-06 11:34:54 [facility] 1.2.840.114 350.1.13.10 4.2.7.2.686 [id number] [facility] 2023-05-06 00:00:00 2023-05-06 00:00:00 Patient Secure Mssirisha Wagner [facility] MEDICAL OFFICE BUILDING 1.2.840.114 350.1.13.10 4.2.7.2.686 [id number] [facility] 2023-05-05 00:00:00 2023-05-05 00:00:00 Telephone Criss Leyva [facility] HANNAH BRISENO?LIZET H[facility] MEDICAL OFFICE BUILDING 1.2840.114 350.1.13.10 4.2.7.2.686 [id number] 044 [id number] [facility] 2023-04-29 11:00:00 2023-04-29 11:00:00 Office Visit Bárbara Lopez [facility] 1.2.114 350.1.13.10 4.2.7.2.686 [id number] [facility] 2023-04-29 11:00:00 2023-04-29 10:55:42 Outpatient R BÁRBARA LOPEZ MARISOL [facility] [id number] [facility] 2023-04-28 00:00:00 2023-04-28 00:00:00 Telephone [facility]iss [facility]ILD[facility] 1.2.840.114 350.1.13.10 4.2.7.2.686 [id number] [id number] [facility] 2023-04-23 14:30:00 2023-04-23 14:45:00 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 Lab, Ang - Db Autumn [facility] MED[facility] 1..840.114 350.1.13.10 4.2.7.2.686 [id number] [facility] 2023-04-23 14:00:00 2023-04-23 14:23:47 Outpatient R CRISS LEYVA [facility] [id number] [facility] 2023-04-23 14:00:00 2023-04-23 14:23:47 Office Visit Autumn [facility] MEDICAL OFFICE BUILDING 1..840.114 350.1.13.10 4.2.7.2.686 [id number] [facility] 2023-04-08 13:01:17 2023-04-08 13:01:17 Outpatient [facility] [id number] Richard F Isrrael 2023-04-07 07:33:00 2023-04-07 11:00:00 Hospital Encounter Naomi-Bárbara Christina [facility] 1..840.114 350.1.13.10 4.2.7.2.686 [id number] [facility] 2023-04-07 07:33:00 2023-04-07 11:00:00 Outpatient R DIALLO S, BÁRBARA JODIE LOPEZSOL [facility] 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 PROFESSIO [facility] 1.2.840.114 350.1.13.10 4.2.7.2.686 [id number] [facility] 2023-04-05 10:45:00 2023-04-05 10:45:00 Outpatient R LOWE-TD S, BÁRBARA LOWE-TD S, [facility] [id number] [facility] 2023-04-01 11:00:00 2023-04-01 11:30:00 Office Visit Lowe[facility]herelleTd [facility] 1.2.840.114 350.1.13.10 4.2.7.2.686 [id number] [facility] 2023-04-01 11:00:00 2023-04-01 11:00:00 Outpatient R LOWE-TD S, BÁRBARA LOWE-TD S, BÁRBARA [facility] [id number] [facility] 2023-04-01 00:00:00 2023-04-01 00:00:00 Orders Only Doctor Unassigned, [place] [facility] 1.2.840.114 350.1.13.10 4.2.7.2.686 [id number] [facility] 2023-03-20 10:00:00 2023-03-20 10:30:00 Office Visit Lowe-Td s Bárbara [facility] 1.2840.114 350.1.13.10 4.2.7.2.686 [id number] [facility] 2023-03-20 10:00:00 2023-03-20 10:00:00 Outpatient R LOWE-TD S, BÁRBARA LOWE-TD S, BÁRBARA [facility] [id number] [facility] 2023-03-19 20:00:00 2023-03-19 20:00:00 Outpatient R BRISA, ANGIEL BRISA, YESSYHIL [facility] [id number] [facility] 2023-03-19 00:00:00 2023-03-19 00:00:00 Patient Secure Msg Naomi-Td sJodieBárbara [facility] 1.2.840.114 350.1.13.10 4.2.7.2.686 [id number] 134 [id number] [facility] 2023-03-17 14:30:00 2023-03-17 15:29:16 Outpatient R NAOMI-TD S, BÁRBARA NAOMI-TD S, BÁRBARA [facility] [id number] [facility] 2023-03-17 14:30:00 2023-03-17 15:29:16 Office Visit Naomi-Td sRachell [facility] 1.2.840.114 350.1.13.10 4.2.7.2.686 [id number] [facility] 2023-03-17 00:00:00 2023-03-17 00:00:00 Orders Only Doctor Unassigned, [place] [facility] 1.2840.114 350.1.13.10 4.2.7.2.686 [id number] [facility] 2023-03-13 16:03:07 2023-03-13 16:03:07 Outpatient SFA SFA [id number] Richard Arcos 2023-03-10 00:00:00 2023-03-10 00:00:00 Patient Secure Msg Doctor Unassigned, [place] [facility]ET [facility] MEDICAL OFFICE BUILDING 1..840.114 350.1.13.10 4.2.7.2.686 [id number] [facility] 2023-02-26 11:00:00 2023-02-26 23:59:00 Outpatient LANG PEREZ HOWARD [facility] [id number] [facility] 2023-02-26 11:00:00 2023-02-26 23:59:00 Hospital Encounter Lang Viveros [facility], [facility] Eeg RUEL [facility] 1..840.114 350.1.13.10 4.2.7.2.686 [id number] [facility] 2023-02-18 00:00:00 2023-02-18 00:00:00 Patient Secure Msg Doctor Unassigned, [place] RUEL [facility] 1..840.114 350.1.13.10 4.2.7.2.686 [id number] [facility] 2023-02-13 15:21:55 2023-02-13 15:21:55 Outpatient [facility] [id number] Richard Arcos 2023-02-10 10:40:00 2023-02-10 11:23:05 Outpatient LANG PEREZ [facility] [id number] [facility] 2023-02-10 10:40:00 2023-02-10 11:23:05 Office Visit Lang Viveros [facility] MEDICAL OFFICE BUILDING 1..840.114 350.1.13.10 4.2.7.2.686 [id number] [facility] 2023-01-21 00:00:00 2023-01-21 00:00:00 Orders Only Doctor Unassigned, [place] [facility] 1.840.114 350.1.13.10 4.2.7.2.686 [id number] [facility] 2023-01-14 15:31:53 2023-01-14 15:31:53 Outpatient [facility] [id number] Richard Arcos 2023-01-14 13:30:00 2023-01-14 13:30:00 Outpatient R CRISS LEYVA [facility] [id number] [facility] 2023-01-14 10:00:00 2023-01-14 10:38:59 Outpatient R CRISS LEYVA [facility] [id number] [facility] 2023-01-14 10:00:00 2023-01-14 10:38:59 Office Visit Criss Leyva [facility] MED[facility] OFFICE BUILD[facility] 1..840.114 350.1.13.10 4.2.7.2.686 [id number] [id number] [facility] 2023-01-08 08:06:42 2023-01-08 08:06:42 Outpatient [facility] [id number] Richard Arcos 2023-01-08 00:00:00 2023-01-08 00:00:00 Telephone Autumn Criss [facility] MEDICAL OFFICE BUILDING 1..840.114 350.1.13.10 4.2.7.2.686 [id number] [id number] [facility] 2023-01-07 12:51:56 2023-01-07 23:59:00 Outpatient R CRISS LEYVA [facility] [id number] [facility] 2023-01-07 12:51:56 2023-01-07 23:59:00 Hospital Encounter Criss Leyva [facility] 1..840.114 350.1.13.10 4.2.7.2.686 [id number] [facility] 2023-01-07 12:15:00 2023-01-07 12:30:00 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 Lab, Price Valenzuela Criss [facility]LI[facility] MEDICAL OFFICE BUILDING 1.84.114 350.1.13.10 4.2.7.2.686 [id number] [facility] 2023-01-07 11:30:00 2023-01-07 12:00:00 Office Visit Criss [facility] MEDICAL OFFICE BUILDING 1.84.114 350.1.13.10 4.2.7.2.686 [id number] 044 [id number] [facility] 2022-12-26 00:00:00 2022-12-26 00:00:00 Patient Secure Msg Criss [facility] MEDICAL OFFICE BUILDING 1.84.114 350.1.13.10 4.2.7.2.686 [id number] [id number] [facility] 2022-12-21 00:00:00 2022-12-21 00:00:00 Patient Secure Msg Criss [facility] MEDICAL OFFICE BUILDING 1.84.114 350.1.13.10 4.2.7.2.686 [id number] [id number] [facility] 2022-12-18 08:20:49 2022-12-18 08:20:49 Outpatient SFA [facility] [id number] Richard Carrillo Isrrael 2022-12-16 13:30:00 2022-12-16 14:07:58 Outpatient R CRISS LEYVA [facility] [id number] [facility] 2022-12-16 13:30:00 2022-12-16 14:07:58 Office Visit Criss [facility] MEDICAL OFFICE BUILDING 1.84.114 350.1.13.10 4.2.7.2.686 [id number] [id number] [facility] 2022-11-22 00:00:00 2022-11-22 00:00:00 Telephone Criss [facility] BUILD[facility] 1.2840.114 350.1.13.10 4.2.7.2.686 [id number] [id number] [facility] 2022-11-21 00:00:00 2022-11-21 00:00:00 Patient Secure Mandy Wagner [facility] 1.840.114 350.1.13.10 4.2.7.2.686 [id number] [facility] 2022-11-20 11:30:00 2022-11-20 12:00:00 Office Visit Criss Leyva [facility] FINN?LIZET [facility]DR[facility] MEDICAL OFFICE BUILDING 1.2840.114 350.1.13.10 4.2.7.2.686 [id number] [id number] [facility] 2022-11-20 11:30:00 2022-11-20 11:30:00 Outpatient Greg LEYVA CRISS [facility] [id number] [facility] 2022-11-14 20:00:00 2022-11-14 22:30:00 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 1, [facility] Sleep Lab Bed Manda Atkinson [facility] 1.840.114 350.1.13.10 4.2.7.2.686 [id number] [facility] 2022-11-14 20:00:00 2022-11-14 20:00:00 Outpatient MANDA PASCAL STRASCAlejandro [facility] [id number] [facility] 2022-11-14 00:00:00 2022-11-14 00:00:00 Orders Only Doctor Unassigned, [place] [facility] 1.2.840.114 350.1.13.10 4.2.7.2.686 [id number] [facility] 2022-10-30 11:30:00 2022-10-30 12:00:00 Office Visit Mandy Wagner [facility] 1.20114 350.1.13.10 4.2.7.2.686 [id number] [facility] 2022-10-30 11:30:00 2022-10-30 11:30:00 Outpatient R MANDY WAGNER [facility] [id number] [facility] 2022-10-29 00:00:00 2022-10-29 00:00:00 Patient Secure Msg [facility]ZACK[facility] MEDICAL OFFICE BUILDING 1.840.114 350.1.13.10 4.2.7.2.686 [id number] [facility] 2022-10-16 08:00:00 2022-10-16 14:55:11 [facility] MED[facility] OFFICE BUILDING 1.84.114 350.1.13.10 4.2.7.2.686 [id number] [id number] [facility] 2022-10-16 08:00:00 2022-10-16 14:55:11 Outpatient R CRISS LEYVA [facility] [id number] [facility] 2022-10-07 11:30:00 2022-10-07 11:55:18 Outpatient R CRISS LEYVA [facility] [id number] [facility] 2022-10-07 11:30:00 2022-10-07 11:55:18 Office Visit [facility]umn [facility] MEDICAL OFFICE BUILDING 1.840.114 350.1.13.10 4.2.7.2.686 [id number] [id number] [facility] 2022-10-04 14:49:29 2022-10-04 23:59:00 Outpatient R CRISS LEYVA [facility] [id number] [facility] 2022-10-04 13:30:00 2022-10-04 14:50:33 Office Visit Criss Leyva [facility] FINN?LIZET [facility] MEDICAL OFFICE BUILDING 1.2840.114 350.1.13.10 4.2.7.2.686 [id number] [id number] [facility] 2022-09-23 00:00:00 2022-09-23 00:00:00 Patient Secure Msg Criss Leyva [facility] FINN?LIZET [facility] MEDICAL OFFICE BUILDING 1.2840.114 350.1.13.10 4.2.7.2.686 [id number] [id number] [facility] 2022-09-23 00:00:00 2022-09-23 00:00:00 Telephone Criss Leyva [facility] FINN?[facility] MEDICAL OFFICE BUILDING 1.2840.114 350.1.13.10 4.2.7.2.686 [id number] [id number] [facility] 2022-09-11 13:30:00 2022-09-11 13:45:00 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 Pcp-Lab Jelly Waters [facility] 1.2840.114 350.1.13.10 4.2.7.2.686 [id number] [facility] 2022-09-11 10:45:00 2022-09-11 11:19:19 Outpatient R JELLY WATERS [facility] [id number] [facility] 2022-09-11 10:45:00 2022-09-11 11:19:19 Office Visit Jelly Waters [facility] 1.2840.114 350.1.13.10 4.2.7.2.686 [id number] [facility] 2022-08-27 15:15:00 2022-08-27 15:15:00 Outpatient ELIZA GIORDANO [facility] [id number] [facility] 2022-08-14 15:15:00 2022-08-14 16:00:00 Ancillary Visit Surface, Moraima 1, Gal [employer] Suite Zuleyma Rivas [facility]. ..840.114 350.1.13.10 4.2.7.2.686 [id number] [facility] 2022-08-14 15:15:00 2022-08-14 15:15:00 Outpatient ZULEYMA MUNOZ [facility] [id number] [facility] 2022-08-06 13:45:00 2022-08-06 13:45:00 Outpatient ZULEYMA MUNOZ [facility] [id number] [facility] 2022-08-06 00:00:00 2022-08-06 00:00:00 Patient Secure Msg Doctor Unassigned, [place] [facility] .84.114 350.1.13.10 4.2.7.2.686 [id number] [facility] 2022-07-12 00:00:00 2022-07-12 00:00:00 Telephone Criss Leyva [facility] MEDICAL OFFICE BUILDING 1.84.114 350.1.13.10 4.2.7.2.686 [id number] [id number] [facility] 2022-07-08 00:00:00 2022-07-08 00:00:00 Patient Secure Msg Doctor Unassigned, [place] [facility] MEDICAL OFFICE BUILDING 1.840.114 350.1.13.10 4.2.7.2.686 [id number] 044 [id number] [facility] 2022-07-05 00:00:00 2022-07-05 00:00:00 Telephone Criss [facility]va [facility]LIZET [facility] MEDICAL OFFICE BUILDING 1.840.114 350.1.13.10 4.2.7.2.686 [id number] 044 [id number] [facility] 2022-07-05 00:00:00 2022-07-05 00:00:00 Telephone Criss [facility]yva [facility]LIZET [facility] MEDICAL OFFICE BUILDING 1.840.114 350.1.13.10 4.2.7.2.686 [id number] [id number] [facility] 2022-07-01 16:30:00 2022-07-01 17:25:44 Outpatient R CRISS LEYVA [facility] [id number] [facility] 2022-07-01 16:30:00 2022-07-01 17:25:44 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 Lab, Price SandyMaral [facility]?LI[facility] MEDICAL OFFICE BUILDING 1.840.114 350.1.13.10 4.2.7.2.686 [id number] [facility] 2022-07-01 15:30:00 2022-07-01 16:17:16 Office Visit AutumnCriss [facility] HANNAH BRISENO?LIZET [facility] MEDICAL OFFICE BUILDING 1.840.114 350.1.13.10 4.2.7.2.686 [id number] 044 [id number] [facility] 2022-06-24 16:00:00 2022-06-24 16:15:00 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 Lab, Price LeyvaCriss [facility]LIZET [facility] MEDICAL OFFICE BUILDING 1.2840.114 350.1.13.10 4.2.7.2.686 [id number] [facility] 2022-06-24 15:00:00 2022-06-24 15:44:54 Outpatient R CRISS LEYVA [facility] [id number] [facility] 2022-06-24 15:00:00 2022-06-24 15:44:54 Office Visit Criss [facility] 1.2.840.114 350.1.13.10 4.2.7.2.686 [id number] [id number] [facility] 2022-06-24 00:00:00 2022-06-24 00:00:00 Orders Only Doctor Unassigned, [place] [facility] 1..840.114 350.1.13.10 4.2.7.2.686 [id number] [facility] 2020-12-14 14:30:00 2020-12-14 14:30:00 Outpatient R SYDNI CAO [facility] [id number] [facility] 2018-12-31 00:00:00 2018-12-31 00:00:00 Telephone Ozzie Juárez [facility] 1..840.114 350.1.13.10 4.2.7.2.686 [id number] [facility] 2018-12-31 00:00:00 2018-12-31 00:00:00 Telephone Ozzie Juárez [facility] 1..840.114 350.1.13.10 4.2.7.2.686 [id number] 220 [id number] 2018-12-29 00:00:00 2018-12-29 00:00:00 Telephone Ozzie Juárez [facility] Building 1.2.840.114 350.1.13.10 4.2.7.2.686 [id number] 220 [id number] [facility] 2018-12-29 00:00:00 2018-12-29 00:00:00 Telephone Ozzie Juárez [facility] 1.2.840.114 350.1.13.10 4.2.7.2.686 [id number] 220 [id number] 2018-12-28 00:00:00 2018-12-28 00:00:00 Telephone Ozzie Juárez [facility] 1.2.840.114 350.1.13.10 4.2.7.2.686 [id number] 220 [id number] [facility] 2018-12-28 00:00:00 2018-12-28 00:00:00 Telephone Ozzie Juárez [facility] 1.2.840.114 350.1.13.10 4.2.7.2.686 [id number] 220 [id number] 2018-12-22 16:50:48 2018-12-24 21:42:12 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 1, [facility] 1.2.840.114 350.1.13.10 4.2.7.2.686 [id number] 353 [id number] 2018-12-22 16:50:48 2018-12-24 21:42:12 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 1, [facility] Ozzie Juárez [place] 1.2.840.114 350.1.13.10 4.2.7.2.686 [id number] 353 [id number] [facility] 2018-12-22 00:00:00 2018-12-22 00:00:00 Orders Only Doctor Unassigned, [place] [facility] 1.2.840.114 350.1.13.10 4.2.7.2.686 [id number] [facility] 2018-12-21 00:00:00 2018-12-21 00:00:00 Telephone Ozzie Juárez [facility] 1.2.840.114 350.1.13.10 4.2.7.2.686 [id number] 220 [id number] [facility] 2018-12-18 00:00:00 2018-12-18 00:00:00 Telephone [facility] 1.2.840.114 350.1.13.10 4.2.7.2.686 [id number] 220 [id number] [facility] Results Test Description Test Time Test Comments Results Result Co mments Source Richard ArcosCOMPREHENSIVE METABOLIC [id number] 00:00:00* Test Item Value Reference Range Interpretation Comme nts GLUCOSE (test code = 2345-7) 91 mg/dL UREA NITROGEN (BUN) (test code = 3094-0) 14 mg/dL CREATININE (test code = 2160-0) 0.80 mg/dL EGFR (test code = 32297-3) 102 mL/min/1.73m2 BUN/CREATININE RATIO (test code = 3097-3) SEE NOTE: (calc) SODIUM (test code = 2951-2) 139 mmol/L POTASSIUM (test code = 2823-3) 4.4 mmol/L CHLORIDE (test code = 2075-0) 107 mmol/L CARBON DIOXIDE (test code = 8-9) 24 mmol/L CALCIUM (test code = 05797-9) 10.0 mg/dL PROTEIN, TOTAL (test code = 2885-2) 7.0 g/dL ALBUMIN (test code = 1751-7) 4.6 g/dL GLOBULIN (test code = 94922-7) 2.4 g/dL(calc) ALBUMIN/GLOBULIN RATIO (test code = 1759-0) 1.9 (calc) BILIRUBIN, TOTAL (test code = 1975-2) 0.6 mg/dL ALKALINE PHOSPHATASE (test code = 6768-6) 56 U/L AST (test code = 1920-8) 13 U/L ALT (test code = 1742-6) 13 U/L Richard ArcosHEMOGLOBIN [id number] 00:00:00* Test Item Value Reference Range Interpretation Comme nts HEMOGLOBIN A1c (test code = 4548-4) 5.0 %oftotalHgb Richard ArcosLIPID [id number] 00:00:00* Test Item Value Reference Range Interpretation Comme nts CHOLESTEROL, TOTAL (test cod e = 2093-3) 183 mg/dL HDL CHOLESTEROL (test code = 2085-9) 41 mg/dL TRIGLYCERIDES (test code = 2571-8) 69 mg/dL LDL-CHOLESTEROL (test code = 83521-4) 126 mg/dL(calc) CHOL/HDLC RATIO (test code = 9830-1) 4.5 (calc) NON HDL CHOLESTEROL (test code = 89392-5) 142 mg/dL(calc) Richard [id number] 00:00:00* Test Item Value Reference Range Interpretation Comme nts TSH (test code = 3016-3) 1.17 mIU/L Richard Carrillo SuperiorPOCT [id number] 20:17:00* Test Item Value Reference Range Interpretation Comme nts POCT PREG (test code = 1605) Negative On board controls acceptable with C Line (test code = 3574) Yes POCT PREG LOT # (test code = 3575) POCT PREG TEST DATE ( test code = 3576) [facility] [id number] 20:17:00* Test Item Value Reference Range Interpretation Comme nts POCT PREG (test code = 1605) Negative On board controls acceptable with C Line (test code = 3574) Yes POCT PREG LOT # (test code = 3575) POCT PREG TEST DATE ( test code = 3576) [facility], THIRD [id number] 05:52:53* Test Item Value Reference Range Interpretation Comme nts TSH, THIRD GENERATION (test code = 2821) 1.370 UIU/ML 0.400-4.100 COMPREHENSIVE METABOLIC [id number] 03:38:28* Test Item Value Reference Range Interpretation Comme nts GLUCOSE (test code = 2217) 95 MG/DL 70-99 BUN (test code = 2208) 10 MG/DL 6-20 CREATININE (test code = 2214) 0.95 MG/DL 0.60-1.30 eGFR (2020 CKD-EPI) (test code = 12108) 84 ML/MIN/1.73 >60 CALC BUN/CREAT (test code = 2235) 11 RATIO 6-28 SODIUM (test code = 2231) 143 MEQ/L 133-146 POTASSIUM (test code = 2228) 4.4 MEQ/L 3.5-5.4 CHLORIDE (test code = 5) 106 MEQ/L 95-107 CARBON DIOXIDE (test code = 2205) 26 MEQ/L 19-31 CALCIUM (test code = 2208) 9.9 MG/DL 8.5-10.5 PROTEIN, TOTAL (test code = 2228) 7.1 G/DL 6.1-8.3 ALBUMIN (test code = 2200) 4.7 G/DL 3.5-5.2 CALC GLOBULIN (test code = 0) 2.4 G/DL 1.9-3.7 CALC A/G RATIO (test code = 2233) 2.0 RATIO 1.0-2.6 BILIRUBIN, TOTAL (test code = 2206) 0.8 MG/DL See_Comment [Automated me ssage] The system which generated this result transmitted reference range: <=1.2. The reference range was not used to interpret this result as normal/abnormal. ALKALINE PHOSPHATASE (test code = 2203) 80 U/L 40-112 AST (test code = 2217) 14 U/L 9-40 ALT (test code = 2218) 9 U/L 5-40 LIPID [id number] 03:38:28* Test Item Value Reference Range Interpretation Comme nts CHOLESTEROL (test code = 0) 204 MG/DL <200 H TRIGLYCERIDES (test code = 2) 91 MG/DL <150 HDL CHOLESTEROL (test code = 2219) 36 MG/DL >39 L CALC LDL CHOL (test code = 2236) 148 MG/DL <100 H NOTE: CALCULATED LDL IS BASED ON JOSE RAMON-AGEE METHOD WHICHINCLUDES ADJUSTABLE TRIGLYCERIDE:VLDL CHOLESTEROL RATIO.THIS FACTOR VARIES BY MEASURED TRIGLYCERIDE AND NON-HDLCHOLESTEROL CONCENTRATIONS WITH INCREASED CALCULATED LDL SEENIN HIGHER TRIGLYCERIDE OR LOWER NON-HDL SPECIMENS. FOR MOREINFORMATION, SEE CLIENT ANNOUNCEMENT AT [email or web address] RISK RATIO LDL/HDL (test code = 2237) 4.11 RATIO <3.22 H HEMOGLOBIN [id number] 02:52:16* Test Item Value Reference Range Interpretation Comme nts HEMOGLOBIN A1c (test code = 83382) 4.9 % 4.2-5.6 UNLESS OTHERWISE INDICATED, ALL TESTING PERFORMED AT [facility] [address] [place] [address] PEN TESTER: FAHAD RUANO M.D. CLIA NUMBER [id number] [facility] [place]. [id number] CBC W/AUTO DIFF WITH [id number] 01:58:08* Test Item Value Reference Range Interpretation Comme nts WBC (test code = 1001) 7.2 K/UL 3.5-11.0 RBC (test code = 1002) 4.40 M/UL 3.80-5.40 HEMOGLOBIN (test code = 1003) 13.6 G/DL 11.5-15.5 HEMATOCRIT (test code = 1004) 39.8 % 34.0-45.0 MCV (test code = 1005) 90.5 fL 80.0-99.0 MCH (test code = 1006) 30.9 PG 25.0-33.0 MCHC (test code = 1007) 34.2 G/DL 31.0-36.0 RDW (test code = 1038) 11.9 % 11.5-15.0 NEUTROPHILS (test code = 1008) 61.9 % LYMPHOCYTES (test code = 1010) 28.7 % MONOCYTES (test code = 1011) 6.4 % EOSINOPHILS (test code = 1012) 2.1 % BASOPHILS (test code = 1013) 0.8 % IMMATURE GRANULOCYTES (test code = 1036) 0.1 % NUCLEATED RBCS (test code = 1065) 0.0 /100 WBC'S See_Comment [Automated messa ge] The system which generated this result transmitted reference range: 0.0. The reference range was not used to interpret this result as normal/abnormal. PLATELET COUNT (test code = 1015) 337 K/UL 130-400 ABSOLUTE NEUTROPHILS (test code = 1066) 4.42 K/UL 1.50-7.50 ABSOLUTE LYMPHOCYTES (test code = 1067) 2.05 K/UL 1.00-4.00 ABSOLUTE MONOCYTES (test code = 1068) 0.46 K/UL 0.20-1.00 ABSOLUTE EOSINOPHILS (test code = 1040) 0.15 K/UL 0.00-0.50 ABSOLUTE BASOPHILS (test code = 1069) 0.06 K/UL 0.00-0.20 ABS IMMATURE GRANULOCYTES (test code = 1020) 0.01 K/UL 0.00-0.10 ABS NUCLEATED RBCS (test code = 09847) 0.00 K/UL 0.00-0.11 CBC W/AUTO [id number] 00:00:00* Test Item Value Reference Range Interpretation Comme nts WBC (test code = 1001) 7.2 K/UL RBC (test code = 1002) 4.40 M/UL HEMOGLOBIN (test code = 1003) 13.6 G/DL HEMATOCRIT (test code = 1004) 39.8 % MCV (test code = 1005) 90.5 fL MCH (test code = 1006) 30.9 PG MCHC (test code = 1007) 34.2 G/DL RDW (test code = 1038) 11.9 % NEUTROPHILS (test code = 1008) 61.9 % LYMPHOCYTES (test code = 1010) 28.7 % MONOCYTES (test code = 1011) 6.4 % EOSINOPHILS (test code = 1012) 2.1 % BASOPHILS (test code = 1013) 0.8 % IMMATURE GRANULOCYTES (test code = 1036) 0.1 % NUCLEATED RBCS (test code = 1065) 0.0 /100WBC'S PLATELET COUNT (test code = 1015) 337 K/UL ABSOLUTE NEUTROPHILS (test c ode = 1066) 4.42 K/UL ABSOLUTE LYMPHOCYTES (test c ode = 1067) 2.05 K/UL ABSOLUTE MONOCYTES (test cod e = 1068) 0.46 K/UL ABSOLUTE EOSINOPHILS (test c ode = 1040) 0.15 K/UL ABSOLUTE BASOPHILS (test cod e = 1069) 0.06 K/UL ABS IMMATURE GRANULOCYTES (t est code = 1020) 0.01 K/UL ABS NUCLEATED RBCS (test cod e = 97872) 0.00 K/UL Richard F AustinCOMPREHENSIVE METABOLIC [id number] 00:00:00* Test Item Value Reference Range Interpretation Comme nts GLUCOSE (test code = 2217) 95 MG/DL BUN (test code = 2208) 10 MG/DL CREATININE (test code = 2214) 0.95 MG/DL eGFR (2020 CKD-EPI) (test co de = 22569) 84 ML/MIN/1.73 CALC BUN/CREAT (test code = 2235) 11 RATIO SODIUM (test code = 2231) 143 MEQ/L POTASSIUM (test code = 2228) 4.4 MEQ/L CHLORIDE (test code = 2215) 106 MEQ/L CARBON DIOXIDE (test code = 2206) 26 MEQ/L CALCIUM (test code = 2209) 9.9 MG/DL PROTEIN, TOTAL (test code = 2229) 7.1 G/DL ALBUMIN (test code = 2201) 4.7 G/DL CALC GLOBULIN (test code = 2240) 2.4 G/DL CALC A/G RATIO (test code = 2234) 2.0 RATIO BILIRUBIN, TOTAL (test code = 2207) 0.8 MG/DL ALKALINE PHOSPHATASE (test code = 2204) 80 U/L AST (test code = 2218) 14 U/L ALT (test code = 2219) 9 U/L Richard ArcosLIPID [id number] 00:00:00* Test Item Value Reference Range Interpretation Comme nts CHOLESTEROL (test code = 2210) 204 MG/DL TRIGLYCERIDES (test code = 2232) 91 MG/DL HDL CHOLESTEROL (test code = 2220) 36 MG/DL CALC LDL CHOL (test code = 2237) 148 MG/DL RISK RATIO LDL/HDL (test cod e = 2238) 4.11 RATIO Richard ArcosTSH, THIRD [id number] 00:00:00* Test Item Value Reference Range Interpretation Comme annalisa TSH, THIRD GENERATION (test code = 2821) 1.370 UIU/ML Richard ArcosHEMOGLOBIN [id number] 00:00:00* Test Item Value Reference Range Interpretation Comme annalisa HEMOGLOBIN A1c (test code = 87915) 4.9 % Richard ArcosPOCT [id number] 17:08:00* Test Item Value Reference Range Interpretation Comme nts POCT PREG (test code = 1605) Negative On board controls acceptable with C Line (test code = 3574) Yes POCT PREG LOT # (test code = 5418) [id number] POCT PREG TEST DATE ( test code = 357) 02/03/2024 Lab Interpretation (test cod e = 55013-9) Normal [facility] [id number] 17:08:00* Test Item Value Reference Range Interpretation Comme nts POCT PREG (test code = 1605) Negative On board controls acceptable with C Line (test code = 3574) Yes POCT PREG LOT # (test code = 3575) [id number] POCT PREG TEST DATE ( test code = 3576) 02/03/2024 Lab Interpretation (test cod e = 60635-4) Normal [facility] [id number] 20:09:00* Test Item Value Reference Range Interpretation Comme nts POCT PREG (test code = 1605) Negative On board controls acceptable with C Line (test code = 3574) Yes POCT PREG LOT # (test code = 3575) [id number] POCT PREG TEST DATE ( test code = 3576) 09/16/2023 [facility] [id number] 20:09:00* Test Item Value Reference Range Interpretation Comme nts POCT PREG (test code = 1605) Negative On board controls acceptable with C Line (test code = 3574) Yes POCT PREG LOT # (test code = 3575) [id number] POCT PREG TEST DATE ( test code = 3576) 09/16/2023 [facility]-SM/[id number] 17:24:49* Test Item Value Reference Range Interpretation Comme nts ANTI-SMRNP (test code = 2154491842) Negative Negative NATHALIE (test code = NATHALIE) Positive - Antibod y detected.Negative - No antibody detected. Lab Interpretation (test code = 19489-4) [facility]-SSA(RO)2022-09-12 17:24:49* Test Item Value Reference Range Interpretation Comme nts ANTI-SSA(RO) (test code = 5715663596) Negative Negative NATHALIE (test code = NATHALIE) Positive - Antibod y detected.Negative - No antibody detected. Lab Interpretation (test code = 04055-5) Normal [facility]-SSB(LA)2022-09-12 17:24:49* Test Item Value Reference Range Interpretation Comme nts Anti-SSB(LA) (test code = 9350987323) Negative Negative NATHALIE (test code = NATHALIE) Positive - Antibod y detected.Negative - No antibody detected. Lab Interpretation (test code = 46144-6) [facility]-DOUBLE STRANDED [id number] 17:24:48* Test Item Value Reference Range Interpretation Comme nts ANTI-DSDNA (test code = 9144162218) See_Comment [Automated message] The system which generated this result transmitted reference range: 0.0 - 4.0 IU/mL. The reference range was not used to interpret this result as normal/abnormal. NATHALIE (test code = NATHALIE) Negative ? ?< or = 4 IU/mLPositive ? ? ?> or = 10 IU/mLIndetermin ate ?5-9 IU/mL Lab Interpretation (test code = 03276-3) Normal [facility] B12, [id number] 00:41:07* Test Item Value Reference Range Interpretation Comme nts VIT B12 (test code = 6401173053) 266 pg/mL 240-930 NATHALIE (test code = NATHALIE) Biotin has been reported to cause a positive bias, interpret results relative to patient's use of biotin. Lab Interpretation (test code = 72266-3) Normal [facility] HospitalTHYROID STIMULATING [id number] 00:21:46 * Test Item Value Reference Range Interpretation Comme nts TSH (test code = 9618112614) 0.72 See_Comment [Automated [employer]] The system which generated this result transmitted reference range: 0.45 - 4.70 mIU/L. The reference range was not used to interpret this result as normal/abnormal. Lab Interpretation (test code = 33487-7) [facility] HospitalFREE [id number] 00:08:06* Test Item Value Reference Range Interpretation Comme nts FREE T4 (test code = 4479516556) 1.15 See_Comment [Automated [employer]] The system which generated this result transmitted reference range: 0.78 - 2.20 ng/dL:. The reference range was not used to interpret this result as normal/abnormal. Lab Interpretation (test code = 31811-2) [facility]-REACTIVE [id number] 17:31:36* Test Item Value Reference Range Interpretation Comme nts CRP (test code = 7142448161) 0.4 mg/dL <=0.8 Lab Interpretation (test cod e = 08799-9) Normal [facility]ACTIVE [id number] 17:31:36* Test Item Value Reference Range Interpretation Comme nts CRP (test code = 7241927252) 0.4 mg/dL <=0.8 Lab Interpretation (test cod e = 07171-9) Normal [facility]ACTIVE [id number] 17:31:36* Test Item Value Reference Range Interpretation Comme nts CRP (test code = 4454071802) 0.4 mg/dL <=0.8 Lab Interpretation (test cod e = 31900-1) Normal [facility] D, [id number] 08:38:28* Test Item Value Reference Range Interpretation Comme nts VIT D 25OH (test code = 09051-8) 23 ng/mL 25-80 L NATHALIE (test code = NATHALIE) Deficiency: <20 ng/mLInsufficiency: 20-24 ng/mLOptimal: 25-80 ng/mL Lab Interpretation (test code = 48766-8) Abnormal [facility] D, [id number] 08:38:28* Test Item Value Reference Range Interpretation Comme nts VIT D 25OH (test code = 07283-2) 23 ng/mL 25-80 L NATHALIE (test code = NATHALIE) Deficiency: <20 ng/mLInsufficiency: 20-24 ng/mLOptimal: 25-80 ng/mL Lab Interpretation (test code = 63340-6) Abnormal [facility] D, [id number] 08:38:28* Test Item Value Reference Range Interpretation Comme nts VIT D 25OH (test code = 26073-8) 23 ng/mL 25-80 L NATHALIE (test code = NATHALIE) Deficiency: <20 ng/mLInsufficiency: 20-24 ng/mLOptimal: 25-80 ng/mL Lab Interpretation (test code = 31602-2) Abnormal [facility] HospitalSEDIMENTATION [id number] 05:38:05* Test Item Value Reference Range Interpretation Comme nts ESR (test code = 58681-8) 14 See_Comment [Automated message] The system which generated this result transmitted reference range: 0 - 20 mm/HR. The reference range was not used to interpret this result as normal/abnormal. Lab Interpretation (test code = 17750-4) Normal [facility] HospitalSEDIMENTATION [id number] 05:38:05* Test Item Value Reference Range Interpretation Comme nts ESR (test code = 93479-0) 14 See_Comment [Automated message] The system which generated this result transmitted reference range: 0 - 20 mm/HR. The reference range was not used to interpret this result as normal/abnormal. Lab Interpretation (test code = 59286-9) Normal [facility] HospitalSEDIMENTATION [id number] 05:38:05* Test Item Value Reference Range Interpretation Comme nts ESR (test code = 57578-5) 14 See_Comment [Automated message] The system which generated this result transmitted reference range: 0 - 20 mm/HR. The reference range was not used to interpret this result as normal/abnormal. Lab Interpretation (test code = 86504-0) Normal [facility] HospitalTHYROID STIMULATING [id number] 00:05:00 * Test Item Value Reference Range Interpretation Comme nts TSH (test code = 0668869581) See_Comment L [Automated messa ge] The system which generated this result transmitted reference range: 0.45 - 4.70 mIU/L. The reference range was not used to interpret this result as normal/abnormal. Lab Interpretation (test code = 81684-4) Abnormal [facility] HospitalTH[facility] STIMULATING [id number] 00:05:00 * Test Item Value Reference Range Interpretation Comme nts TSH (test code = 2686047754) See_Comment L [Automated messa ge] The system which generated this result transmitted reference range: 0.45 - 4.70 mIU/L. The reference range was not used to interpret this result as normal/abnormal. Lab Interpretation (test code = 52983-3) Abnormal [place] [address] [id number] 23:51:00* Test Item Value Reference Range Interpretation Comme nts FREE T4 (test code = 4625949474) 1.93 ng/dL 0.78-2.2 Lab Interpretation (test cod e = 73754-7) Normal [place] [address] [id number] 23:51:00* Test Item Value Reference Range Interpretation Comme nts FREE T4 (test code = 9169076025) 1.93 ng/dL 0.78-2.2 Lab Interpretation (test cod e = 90919-9) Normal [facility] Notes Date/Time Note Provider Source Richard Lock [facility]2024-10-07 11:53:47 Please review and advise. ZAC 04/23/23 Ninoska Quijano [facility]2024-10-07 09:43:18 Patient is calling again regarding getting lab orders placed. Debbie MonsonPremier Health [facility] [id number] 09:23:17 Called and scheduled patient for 12/31/23 for IUD removal. Estella LozanoPremier Health [facility] Medical CenterQcesmw1888-02-62 12:39:55 Called pt; left v/m to schedule. Ss 12/21 @ 12:40pm Flori PepperPremier Health [facility] Medical CenterRkgkzr2090-45-80 08:47:49 Nita Slater is a 28 year old female is calling to be scheduled for IUD removal. Patient seen on 11/05 for consult and calling to schedule. Please call. Thank you. Patrizia UrbanoPremier Health Upper Valley Medical [id number] 14:55:24 Called to speak with patient. She states she is still taking the medication - 1.5 tabs (75 +37.5mg) every evening. Dinah Cao RNPremier Health Upper Valley Medical [id number] 09:23:16 Ok we will see what It shows Is she still taking Effexor [facility]2024-03-26 09:00:22 Contacted patient and notified her per provider thyroid labs have been placed. She may have them drawn Mon-Fri 730a-445p. Patient reports she just got off her cycle last week, she is on control and has not been very active since she doesn't feel well. She states she will take an at home UPT. Marjorie Fay LVN 08/12/2023 9:02 AM Marjorie Fay [facility]2024-03-25 16:06:52 I put the order in, has she taken a home UPT? [place] [id number] 15:49:36 Please review and advise [place] [address]-03-25 15:45:26 Nita Slater is a 27 year old female Pt called wanting to see if pcp can send lab orders to check her Thyroid levels. Pt states wakes up nauseous, tried all the time, & can't sleep at night. Pt declined apt due to self pay [place]. Please advise [phone] (home) Luis KraftPremier Health Upper Valley Medical CenterGomhln3265-88-11 08:49:38 Please review and sign if appropriate: Last office visit: 04/23/23 Next office visit: not scheduled Requested Prescriptions Pending Prescriptions Disp Refills MELOXICAM 15 mg tablet [Pharmacy Med Name: MELOXICAM 15 MG TABLET] 30 tablet 1 Sig: TAKE 1 TABLET BY MOUTH ONCE DAILY NEEDED FOR PAIN (WRIST PAIN). Last fill date: 04/23/23 Labs: CREATININE (mg/dL) Date Value 06/24/2022 0.74 Notes: Right wrist pain (primary encounter diagnosis) Comment: acute stable Plan: meloxicam 15 mg tablet LEON Quijano [facility]2023-08-23 13:19:56 Podiatry referral placed r/t x ray results [facility]2023-08-22 12:15:00 Patient states she will call her Psych dr to check on lab orders. [facility] Pasha Tobias [facility]
[2024-08-21] MEDS ORDERED: MORPHINE 4 MG/ML SYR ONE (15:51)
[2024-08-21] MEDS ORDERED: NA CHLORIDE 0.9% 1,000 ML ONE (15:51)
[2024-08-21] MEDS ORDERED: ONDANSETRON 4 MG/2 ML VIAL ONE (15:51)
[2024-08-21 16:21] LABS: Absolute Basophils 0.2 K/uL (0-0.5); Absolute Eosinophils 0.2 K/uL (0-0.5); Absolute Lymphocytes (CBC) 1.9 K/uL (0.7-4.9); Absolute Monocytes 0.4 K/uL (0.1-1.3); Absolute Neutrophil 4.6 K/uL (1.8-8.0); Basophils % 2.3 % (0-1.3); Eosinophils % 2.2 % (0-4.4); Hematocrit 38.1 % (36.0-45.0); Hemoglobin 13.3 g/dL (12.0-15.0); Lymphocytes % 26.6 % (15.3-44.8); MCH 31.6 pg (27.0-35.0); MCHC 34.8 g/dL (32.0-36.0); MCV 90.6 fL (80-100); MPV 7.9 fL (7.6-11.3); Monocytes % 5.8 % (3.3-12.3); Neutrophils % 63.1 % (41.7-73.7); Nucleated Red Blood Cells % 0.1 % (0-0); Platelets 351 thou/uL (152-406); Red Cell Distribution Width 12.7 % (12.1-15.2)
[2024-08-21 16:29] LABS: Specific Gravity > 1.030 (1.005-1.030)
[2024-08-21 16:31] LABS: Specific Gravity > 1.030 (1.005-1.030); Urine Bacteria None Seen /HPF (<20); Urine Bilirubin NEGATIVE (Negative); Urine Blood Negative (Negative); Urine Clarity Extremely Turbid (Clear); Urine Color Yellow (Yellow); Urine Crystals Unidentified Few /HPF (None Seen); Urine Culture Reflex Order NOT NEEDED; Urine Glucose NEGATIVE (Negative); Urine Ketones NEGATIVE (Negative); Urine Microscopic Reflex YN ORDER UMIC; Urine Mucus 4+ /HPF (None Seen); Urine Nitrite NEGATIVE (Negative); Urine Protein TRACE (Negative); Urine RBC <5 /HPF (None Seen); Urine Urobilinogen 1+ (Normal); Urine WBC <5 /HPF (<5)
[2024-08-21 16:39] LABS: Albumin 3.8 g/dL (3.4-5.0); Albumin/Globulin Ratio 1.2 (1.1-1.8); Anion Gap 7.8 mEq/L (5.0-15.0); Bilirubin Total 0.3 mg/dL (0.2-1.0); Globulin 3.3 g/dL (2.3-3.5); Potassium 3.8 mEq/L (3.5-5.1); Protein, Total 7.1 g/dL (6.4-8.2)
--- NOTE | 2024-08-21 17:07 | RAD REPORT ---
EXAMINATION: CT ABDOMEN AND PELVIS WITH CONTRAST CLINICAL INDICATION: ABD PAIN TECHNIQUE: CT abdomen and pelvis was performed, after the administration of IV contrast, as per [facility] protocol. Axial, sagittal and coronal reconstructions were obtained. One or more of the following dose reduction techniques were used: Automated exposure control, adjustment of the mA and k V according to patient size, and iterative reconstruction. Unless otherwise specified, incidental findings do not require dedicated imaging follow-up. COMPARISON: No prior exam. FINDINGS: LOWER CHEST: The visualized lung bases are clear. LIVER: Normal in size and contour. No focal lesion. Grossly unremarkable gallbladder. SPLEEN: Normal size. No focal lesion. PANCREAS: No mass, ductal dilation, or nilsa-pancreatic fluid. ADRENALS: Normal; no mass. KIDNEYS: Normal size and contour. No hydronephrosis. GASTROINTESTINAL TRACT: No evidence of free air, significant intra-abdominal free fluid, bowel obstru ction or abscess. APPENDIX: Normal appendix. LYMPH NODES: No lymphadenopathy. MUSCULOSKELETAL: No acute or suspicious osseous abnormality. ADDITIONAL FINDINGS: None. IMPRESSION: No acute or concerning abnormalities seen in the abdomen or pelvis.
--- NOTE | 2024-08-21 17:18 | ER ---
Nurse's Notes [facility] Name: Penelope Slater Age: 28 yrs Sex: Female : 1995 Arrival Date: 08/21/2024 Time: 15:27 Bed 17 Private MD: Diagnosis: Abdominal pain Presentation: 08/21 15:39 Chief complaint: Patient states: right upper abd pain radiating to lower abd area , has iw been having pain and vomiting off and on for a year, she has been taking a supplement and stopped it on August 12 because it was making her vomit . the episodes this week started on August 08. Coronavirus screen: At this time, the client does not indicate any symptoms associated with coronavirus-19. Ebola Screen: No symptoms or risks identified at this time. Initial Sepsis Screen: Does the patient meet any 2 criteria? No. Patient's initial sepsis screen is negative. Does the patient have a suspected source of infection? No. Patient's initial sepsis screen is negative. Risk Assessment: Do you want to hurt yourself or someone else? Patient reports no desire to harm self or others. 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 - Infectious Disease History:: Denies. - Social history:: Smoking status: Reported history of juuling and/or vaping. Screenin:17 [facility] ED Fall Risk Assessment (Adult) History of falling in the last 3 months, kc6 including since admission No falls in past 3 months (0 pts) Confusion or Disorientation No (0 pts) Intoxicated or Sedated No (0 pts) Impaired Gait No (0 pts) Mobility Assist Device Used No (0 pt) Altered Elimination No (0 pt) Score/Fall Risk Level 0 - 2 = Low Risk Oriented to surroundings, Maintained a safe environment, Educated pt \T\ family on fall prevention, incl call for assistance when getting out of bed. Abuse screen: Denies threats or abuse. Denies injuries from another. Nutritional screening: No deficits noted. Tuberculosis screening: No symptoms or risk factors identified. Assessment: 16:17 General: Appears in no apparent distress. comfortable, obese, well groomed, well kc6 developed, Behavior is calm, cooperative, appropriate for age. Pain: Complains of pain in posterior aspect of right lateral abdomen, anterior aspect of right lateral abdomen, right upper quadrant and right lower quadrant. Neuro: Level of Consciousness is awake, alert, obeys commands, Oriented to person, place, time, situation, Appropriate for age. Cardiovascular: Capillary refill < 3 seconds. Respiratory: Airway is patent Trachea midline Respiratory effort is even, unlabored, Respiratory pattern is regular, symmetrical. GI: Abdomen is round non-distended, obese, Bowel sounds present X 4 quads. Abd is soft X 4 quads Reports lower abdominal pain, upper abdominal pain, nausea, vomiting, Patient currently denies diarrhea. : No signs and/or symptoms were reported regarding the genitourinary system. Urine is clear. EENT: No signs and/or symptoms were reported regarding the EENT system. Derm: No signs and/or symptoms reported regarding the dermatologic system. Skin is intact, is healthy with good turgor, Skin is pink, warm \T\ dry. Musculoskeletal: No signs and/or symptoms reported regarding the musculoskeletal system. Circulation, motion, and sensation intact. Range of motion: intact in all extremities. 17:52 Reassessment: Patient appears in no apparent distress at this time. No changes from kc6 previously documented assessment. Patient and/or family updated on plan of care and expected duration. Pain level reassessed. Patient is alert, oriented x 3, equal unlabored respirations, skin warm/dry/pink. Vital Signs: 15:39 BP 143 / 88; Pulse 79; Resp 16; Temp 98.4; Pulse Ox 100% on R/A; Weight 130.63 kg; iw Height 5 ft. 7 in. ; Pain 7/10; 17:52 BP 92 / 79; Pulse 55; Resp 18 S; Pulse Ox 95% on R/A; kc6 15:39 Body Mass Index 45.11 (130.63 kg, 170.18 cm) iw 15:39 Pain Scale: Adult iw ED Course: 15:29 Patient arrived in ED. mr 15:31 Jennifer Prince MD is Attending Physician. sp3 15:41 Triage completed. iw 15:54 Debbie Spicer, RN is Primary Nurse. kc6 16:17 Initial lab(s) drawn, by me, sent to lab. Urine collected: clean catch specimen, clear. kc6 Inserted saline lock: 20 gauge in right antecubital area, using aseptic technique. Blood collected. Flushed with 10 mL NS. Patient maintains SpO2 saturation greater than 95% on room air. 16:17 Patient has correct armband on for positive identification. Bed in low position. Call kc6 light in reach. Side rails up X 1. Adult w/ patient. Pulse ox on. NIBP on. Door closed. Noise minimized. Lights dimmed. Pillow given. Verbal reassurance given. 16:17 Arm band placed on. kc6 17:03 CT Abd/Pelvis - IV Contrast Only In Process Unspecified. EDMS 17:52 No provider procedures requiring assistance completed. IV discontinued, intact, kc6 bleeding controlled, No redness/swelling at site. Pressure dressing applied. Administered Medications: 16:17 Drug: Ondansetron IVP 4 mg IVP once; over 2 minutes Route: IVP; Site: right antecubital;kc6 17:50 Follow up: Response: No adverse reaction kc6 16:17 Drug: morphine IVP or IV 4 mg IVP once over 4 mins Route: IVP; Infused Over: 4 mins; kc6 Site: right antecubital; 17:50 Follow up: Response: No adverse reaction; Pain is decreased; RASS: Alert and Calm (0) kc6 16:17 Drug: NS 0.9% IV 1000 ml IV at 1 bolus Per protocol; to be given as a bolus over 60 kc6 minutes Route: IV; Rate: 1 bolus; Site: right antecubital; 17:50 Follow up: Response: No adverse reaction; IV Status: Completed infusion; IV Intake: kc6 1000ml Medication: 17:53 VIS not applicable for this client. kc6 Intake: 17:50 IV: 1000ml; Total: 1000ml. kc6 Outcome: 17:17 Discharge ordered by . sp3 17:53 Discharged to home ambulatory, with significant other, kc6 17:53 Condition: improved 17:53 Discharge instructions given to patient, significant other, Instructed on discharge instructions, follow up and referral plans. no drinking with medication, no driving heavy equipment, medication usage, Demonstrated understanding of instructions, follow-up care, medications, Prescriptions given X 1, 17:53 Patient left the ED. kc6 Signatures: Dispatcher [employer] ED FavioRadha, Giovanni Davila mr Danica Adames RN RN iw Patel, Setul, MD MD sp3 Debbie Spicer RN RN kc6 Corrections: (The following items were deleted from the chart) 15:41 15:39 BP 143 / 88; Pulse 79bpm; Resp 16bpm; Pulse Ox 100% RA; Temp 98.4F; iw [place]
--- NOTE | 2024-08-21 17:18 | EDPHYS ---
Physician Documentation [facility] Name: Penelope Slater Age: 28 yrs Sex: Female : 1995 Arrival Date: 08/21/2024 Time: 15:27 Bed 17 Private MD: ED Physician Jennifer Prince HPI: 08/21 16:06 This 28 yrs old Female presents to ER via Ambulatory with complaints of Flank Pain. sp3 16:06 28-year-old female with history of Graves' disease, hypertension, obesity who presents sp3 to the ED with right sided abdominal pain for the last 1 week. Patient took a "supplement" from [employer] and believes that may have been the inciting agent. She took it for 5 days and then stopped. She states other people on the Internet who had taken it developed jaundice and liver problems. Patient also states that she has had off-and-on vomiting as a chronic basis for the last several years. Her PCP has her on ondansetron ODT and dicyclomine at [facility] where she was seen for this in the past. She denies any headache, fever, chest pain, shortness of breath, diarrhea, syncope, near syncope, melena, other bleeding, rash, known sick contacts, travel history, or any other signs or symptoms on ROS at this time.. 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 - Infectious Disease History:: Denies. - Social history:: Smoking status: Reported history of juuling and/or vaping. ROS: 16:07 Constitutional: Negative for fever, chills, and weight loss, Eyes: Negative for injury, sp3 pain, redness, and discharge, ENT: Negative for injury, pain, and discharge, Neck: Negative for injury, pain, and swelling, Cardiovascular: Negative for chest pain, palpitations, and edema, Respiratory: Negative for shortness of breath, cough, wheezing, and pleuritic chest pain, Back: Negative for injury and pain, MS/Extremity: Negative for injury and deformity, Skin: Negative for injury, rash, and discoloration, Neuro: Negative for headache, weakness, numbness, tingling, and seizure, Psych: Negative for depression, anxiety, suicide ideation, homicidal ideation, and hallucinations, Allergy/Immunology: Negative for hives, rash, and allergies, Endocrine: Negative for neck swelling, polydipsia, polyuria, polyphagia, and marked weight changes, 16:07 All other systems are negative, Exam: 16:07 Constitutional: This is a well developed, well nourished patient who is awake, alert, sp3 and in no acute distress. Head/Face: Normocephalic, atraumatic. Eyes: Pupils equal round and reactive to light, extra-ocular motions intact. Lids and lashes normal. Conjunctiva and sclera are non-icteric and not injected. Cornea within normal limits. Periorbital areas with no swelling, redness, or edema. Neck: Trachea midline, no thyromegaly or masses palpated, and no cervical lymphadenopathy. Supple, full range of motion without nuchal rigidity, or vertebral point tenderness. No Meningismus. Chest/axilla: Normal chest wall appearance and motion. Nontender with no deformity. No lesions are appreciated. Cardiovascular: Regular rate and rhythm with a normal S1 and S2. No gallops, murmurs, or rubs. Normal PMI, no JVD. No pulse deficits. Respiratory: Lungs have equal breath sounds bilaterally, clear to auscultation and percussion. No rales, rhonchi or wheezes noted. No increased work of breathing, no retractions or nasal flaring. Back: No spinal tenderness. No costovertebral tenderness. Full range of motion. Skin: Warm, dry with normal turgor. Normal color with no rashes, no lesions, and no evidence of cellulitis. MS/ Extremity: Pulses equal, no cyanosis. Neurovascular intact. Full, normal range of motion. Neuro: Awake and alert, GCS 15, oriented to person, place, time, and situation. Cranial nerves II-XII grossly intact. Motor strength 5/5 in all extremities. Sensory grossly intact. Cerebellar exam normal. Normal gait. Psych: Awake, alert, with orientation to person, place and time. Behavior, mood, and affect are within normal limits. 16:07 Abdomen/GI: Mild pain to palpation right abdomen diffuse. No peritoneal signs, rebound or guarding noted. Nonsurgical abdomen. Vital signs are normal., Vital Signs: 15:39 BP 143 / 88; Pulse 79; Resp 16; Temp 98.4; Pulse Ox 100% on R/A; Weight 130.63 kg; iw Height 5 ft. 7 in. ; Pain 7/10; 17:52 BP 92 / 79; Pulse 55; Resp 18 S; Pulse Ox 95% on R/A; kc6 15:39 Body Mass Index 45.11 (130.63 kg, 170.18 cm) iw 15:39 Pain Scale: Adult iw MDM: 15:42 Medical Screening Exam initiated sp3 16:08 Data reviewed: vital signs, nurses notes, lab test result(s), radiologic studies. ED sp3 course: 28-year-old female with PMH above now with right-sided abdominal pain. Differential diagnosis includes chronic abdominal pain, supplement induced pathology, biliary pathology, gastritis, pancreatitis, colitis, UTI/pyelonephritis spectrum, kidney stone, among others. I am not highly suspicious of or [employer] pathology. Workup will include CT scan of the abdomen pelvis, general labs and general supportive care. Morphine and ondansetron IV for symptomatic control. Disposition pending workup and patient course. If workup negative, probable discharge with GI follow-up and I have educated and counseled patient on not using non-FDA regulated supplements.. 17:16 ED course: Full workup negative. We will safely discharge patient home at this time.. sp3 08/21 15:45 Order name: CBC with Diff; Complete Time: 16:41 sp3 08/21 15:45 Order name: CMP; Complete Time: 16:41 sp3 08/21 15:45 Order name: Lipase; Complete Time: 16:41 sp3 08/21 15:45 Order name: Test, Urine; Complete Time: 16:41 sp3 08/21 15:45 Order name: Urinalysis w/ reflexes; Complete Time: 16:41 sp3 08/21 15:45 Order name: CT Abd/Pelvis - IV Contrast Only; Complete Time: 17:14 sp3 08/21 15:45 Order name: IV Saline Lock; Complete Time: 16:17 sp3 08/21 15:45 Order name: Labs collected and sent; Complete Time: 16:17 sp3 Administered Medications: 16:17 Drug: Ondansetron IVP 4 mg IVP once; over 2 minutes Route: IVP; Site: right antecubital;kc6 17:50 Follow up: Response: No adverse reaction [facility] 16:17 Drug: morphine IVP or IV 4 mg IVP once over 4 mins Route: IVP; Infused Over: 4 mins; kc6 Site: right antecubital; 17:50 Follow up: Response: No adverse reaction; Pain is decreased; RASS: Alert and Calm (0) [facility] 16:17 Drug: NS 0.9% IV 1000 ml IV at 1 bolus Per protocol; to be given as a bolus over 60 kc6 minutes Route: IV; Rate: 1 bolus; Site: right antecubital; 17:50 Follow up: Response: No adverse reaction; IV Status: Completed infusion; IV Intake: kc6 1000ml Disposition Summary: 08/21/24 17:17 Discharge Ordered Notes: Location: Home sp3 Condition: Stable sp3 Diagnosis - Abdominal pain sp3 Followup: sp3 - With: Private Physician - When: Upon discharge from the Emergency Department - Reason: Recheck today's complaints, Continuance of care Discharge Instructions: - Discharge Summary Sheet sp3 - Abdominal Pain, Adult sp3 Forms: - Medication Reconciliation Form sp3 - Antibiotic Education sp3 - Prescription Opioid Use sp3 - Patient Portal Instructions sp3 - Leadership Thank You Letter sp3 Prescriptions: - Tramadol 50 mg Oral Tablet - take 1 tablet ORAL route every 8 hours as needed; 12 tablet; Refills: 0, sp3 Product Selection Permitted Signatures: Dispatcher [employer] Danica Navarrete, MAGALYS DOWELL Jennifer Prince MD MD sp3 Debbie Spicer RN RN kc6
[2024-08-21 18:06] VITALS: TEMP 98.4
[2024-08-21 18:10] VITALS: BP 92/79; O2SAT 95
== END 2024-08-21 17:53 | disposition home or self-care (01) ==
LOC: ER 15:27
DX: R10.31 Right lower quadrant pain (principal); R11.2 Nausea with vomiting, unspecified
CPT/HCPCS: 36415; 74177; 80053; 81001; 81025; 83690; 85025; 96361; 96374; 96375; 99284; J2405; J7030; Q9967

== ENCOUNTER 2024-08-27 09:13 | Emergency (ER) | payer SELFPAY ==
--- OUTSIDE RECORDS SUMMARY | 2024-08-27 09:20 | XMS REPORT | Continuity of Care Document ---
Author Name Unknown Address [address] [facility] [place] [address] [facility] [place] Address [address] [facility] [address] [place] [address] Care Team Providers Care Occupational Therapist Assistant Name Role Phone Eduardo Dumont Primary Care Physician BRENNEN WAGNER Attending Clinician Unavailable MARJORIE BENÍTEZ Attending Clinician Unavailable Criss Briggs Attending Clinician [phone] Jeyson Marjorie ARMSTRONG Attending Clinician [phone] BÁRBARA TAYLOR Attending Clinician BÁRBARA Silver Attending Clinician JELLY Preez Attending Clinician Unavailable Criss Briggs Attending Clinician [phone] Brennen Wagner MD Attending Clinician [phone] Lab, Ang - Db Attending Clinician Unavailable CRISS LEYVA Attending Clinician Unavailable Po, [facility] Main Attending Clinician Unavailabl e Doctor Unassigned, [place] Attending Clinician U navailable MANDA ATKINSON Attending Clinician UnavailMANDA Bronson Attending Clinician UnavailLANG Diop Attending Clinician Unavail LANG Caicedo Attending Clinician Unavail Lang Caicedo MD Attending Clinician [facility] Eeg Attending Clinician Unavailable Mandy Ramirez Attending Clinician [phone] , [facility] Sleep Lab Bed Attending Clinician Unavail Manda Kinsey MD Attending Clinician MANDY WAGNER Attending Clinician Unavailable Pcp-Lab Attending Clinician Unavailable Jelly Waters PA-C Attending Clinician [phone] JELLY WATERS Attending Clinician Unavailable ELIZA MEJIA Attending Clinician Unavailable Surface Moraima Conner Attending Clinician [phone], [employer] Attending Clinician Joceline Zuleyma Saba PhD Attending Clinician + [phone] ZULEYMA RIVAS Attending Clinician Unavailab SYDNI Abbott Attending Clinician Unavailable Ozzie Juárez Attending Clinician [phone], [facility] Attending Clinician Unavailable BRENNEN WAGNER Admitting Clinician Unavailable Bárbara Taylor MD Admitting Clinician + [phone] LANG JACKSON Admitting Clinician Unavail able Payers Payer Name Policy Type Policy Number Effective Date Expirati on Date Source [facility] [id number] 2022 00:00:00 Problems Condition Name Condition Details Condition Category Status Onset Date Resolution Date Last Treatment Date Treating Clinician Comments Source Thyrotoxic osis Thyrotoxic osis Disease Active 05-20 00:00: 00 [facility] Tachycardi a Tachycardi a Disease Active 05-20 00:00: 00 [facility] Polycystic ovaries Polycystic ovaries Disease Active - 00:00: 00 [facility] Pain Pain Disease Active 2022-05- 00:00: 00 [facility] Right wrist pain Right wrist pain Disease Active 2022-05- 00:00: 00 [facility] Dysplasia of cervix, high grade JEMIMA 2 Dysplasia of cervix, high grade JEMIMA 2 Disease Active 2022-05 00:00: 00 [facility] Severe dysplasia of cervix (JEMIMA III) Severe dysplasia of cervix (JEMIMA III) Disease Active 2022-05 00:00: 00 [facility] Morbid obesity with body mass index of 40.0-49.9 Morbid obesity with body mass index of 40.0-49.9 Disease Active 2022-05 0-30 00:00: 00 [facility] ASCUS with 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 Disease Active 2022-05 030 00:00: 00 [facility] Atypical squamous cell changes of undetermin ed significan ce (ASCUS) on vaginal cytology Atypical squamous cell changes of undetermin ed significan ce (ASCUS) on vaginal cytology Disease Active 7 00:00: 00 [facility] History of HPV infection History of HPV infection Disease Active 0 7 00:00: 00 [facility] Right hip pain Right hip pain Disease Active 0 10-07 00:00: 00 [facility] Right hip pain Right hip pain Disease Active 10-07 00:00: 00 [facility] Snoring Snoring Disease Active 5 00:00: 00 [facility] Chronic midline thoracic back pain Chronic midline thoracic back pain Disease Active 5- 00:00: 00 [facility] Lumbar pain Lumbar pain Disease Active 0 519 00:00: 00 [facility] Herpes zoster without complicati on Herpes zoster without complicati on Disease Active 2- 00:00: 00 [facility] Pulsatile tinnitus of right ear Pulsatile tinnitus of right ear Disease Active 2-13 00:00: 00 [facility] BMI 45.0-49.9, adult BMI 45.0-49.9, adult Disease Active 2-06 00:00: 00 [facility] Anxiety and depression Anxiety and depression Disease Active 2-06 00:00: 00 [facility] Graves disease Graves disease Disease Active 7 00:00: 00 [facility] Acute cough Acute cough Disease Resolve d 8- 00:00: 00 2023-03-17 00:00:00 2023-03-17 15:14:05 [facility] Bartholin' s cyst Bartholin' s cyst Disease Resolve d 8-29 00:00: 00 2023-03-17 00:00:00 2023-03-17 15:14:32 [facility] Acute cough Acute cough Disease Resolve d 2022-0 8-29 00:00: 00 2023-03-17 00:00:00 2023-03-17 15:14:05 [facility] Nasal congestion Nasal congestion Disease Resolve d 2022-0 8-29 00:00: 00 2023-03-17 00:00:00 2023-03-17 15:14:08 [facility] Cellulitis of other specified site Cellulitis of other specified site Disease Resolve d 2022-0 8-29 00:00: 00 2023-03-17 00:00:00 2023-03-17 15:14:04 [facility] Viral upper respirator y tract infection Viral upper respirator y tract infection Disease Resolve d 2022-0 8-29 00:00: 00 2023-03-17 00:00:00 2023-03-17 15:14:01 [facility] Chest pain, unspecifie d type Chest pain, unspecifie d type Disease Resolve d 2022-0 7-31 00:00: 00 2023-03-17 00:00:00 2023-03-17 15:14:10 [facility] Right foot pain Right foot pain Disease Resolve d 2022-0 7-31 00:00: 00 2023-03-17 00:00:00 2023-03-17 15:14:07 [facility] Cervical cancer screening Cervical cancer screening Disease Resolve d 2022-0 5-31 00:00: 00 2023-03-17 00:00:00 2023-03-17 15:13:58 [facility] Muscle twitching Muscle twitching Disease Resolve d 2022-0 2-13 00:00: 00 2023-03-17 00:00:00 2023-03-17 15:13:53 [facility] Encounter to establish care Encounter to establish care Disease Resolve d 2022-0 2-06 00:00: 00 2023-03-17 00:00:00 2023-03-17 15:14:16 [facility] Encounter to establish care Encounter to establish care Disease Resolve d 2-06 00:00: 00 2023-03-17 00:00:00 2023-03-17 15:14:16 [facility] Disease Resolve d 9-13 00:00: 00 2023-03-17 00:00:00 2023-03-17 15:14:30 [facility] Allergies, Adverse Reactions, Alerts Allergy Name Allergy Type Status Severity Reaction(s) Onset Date Inactive Date Treating Clinician Comments Source LATEX DRUG INGREDI Active Med Hives 2022-05 00:00: 00 [facility] Latex Propensi ty to adverse reaction s Active Hives 2022-05 00:00: 00 [facility] NO KNOWN ALLERGIE S Drug Class Active [facility] Social History Social Habit Start Date Stop Date Quantity Comments Source History SDOH Food Worry [facility] Gender identity [facility] Alcoholic beverage intake 2023-12-31 00:00:00 2023-12-31 00:00:00 Ex-drinker (finding) [facility] History of Social function 2023-11-06 00:00:00 2023-11-06 00:00:00 [facility] Alcohol intake 2023-04-29 00:00:00 2023-04-29 00:00:00 Ex-drinker (finding) [facility] Tobacco use and exposure 2023-03-31 00:00:00 2023-03-31 00:00:00 User of smokeless tobacco [facility] Tobacco Comment 2023-03-31 00:00:00 2023-03-31 00:00:00 Smoke weed daily [facility] Exposure to SARS-CoV-2 (event) 2022-11-09 00:00:00 2022-11-19 20:17:00 Not sure [facility] History SDOH Alcohol Frequency 2022-10-07 00:00:00 2022-10-07 00:00:00 1 [facility] History SDOH Alcohol Std Drinks 2022-10-07 00:00:00 2022-10-07 00:00:00 0 [facility] History SDOH Alcohol Binge 2022-10-07 00:00:00 2022-10-07 00:00:00 1 [facility] History SDOH Financial 2022-10-07 00:00:00 2022-10-07 00:00:00 3 [facility] History SDOH Food Scarcity 2022-10-07 00:00:00 2022-10-07 00:00:00 2 [facility] History SDOH Transport Med 2022-10-07 00:00:00 2022-10-07 00:00:00 2 [facility] History SDOH Transport Non-Med 2022-10-07 00:00:00 2022-10-07 00:00:00 2 [facility] History SDOH Housing Unable to Pay 2022-10-07 00:00:00 2022-10-07 00:00:00 1 [facility] History SDOH Housing Places Lived 2022-10-07 00:00:00 2022-10-07 00:00:00 2 [facility] History SDOH Housing Homeless Last Year 2022-10-07 00:00:00 2022-10-07 00:00:00 2 [facility] Sex assigned at 1995 00:00:00 1995 00:00:00 [facility] Smoking Status Start Date Stop Date Source Never smoked tobacco [facility] Medications Ordered Medication Name Filled Medication Name [...] release 08-16 00:00: 00 Yes 1mg Richard F Isrrael Effexor XR 37.5 mg capsule,ext ended release 2024-0 3-31 00:00: 00 Yes 1mg Richard Arcos buspirone 10 mg tablet 2024-0 3-03 00:00: 00 Yes 1mg Richard Arcos trazodone 100 mg tablet 2024-0 3- 00:00: 00 Yes 1mg Richard Arcos Effexor [...] Effexor XR 75 mg capsule,ext ended release 2023- 1-05 00:00: 00 Yes 1mg Richard Arcos [...] XR 37.5 mg capsule,ext ended release 4-0 6-10 00:00: 00 Yes 1mg Richard Arcos Effexor XR 75 mg capsule,ext ended release 2024-0 6-06 00:00: 00 Yes 1mg Richard Arcos Effexor XR 37.5 mg capsule,ext ended release 4-0 6-06 00:00: 00 Yes 1mg Richard Arcos Effexor XR 75 mg capsule,ext ended release 2024-0 4-10 00:00: 00 Yes 1mg Richard Arcos Effexor XR 37.5 mg capsule,ext ended release 4-0 4-10 00:00: 00 Yes 1mg Richard Arcos Effexor XR 37.5 mg capsule,ext ended release 4-0 4-08 00:00: 00 Yes 1mg Richard Arcos Effexor XR 75 mg capsule,ext ended release 4-0 4-08 00:00: 00 Yes 1mg Richard Arcos MELOXICAM 15 mg tablet 19 00:00: 00 11-05 00:00 :00 No [id number] 9100 15mg TAKE 1 TABLET BY MOUTH ONCE DAILY NEEDED FOR PAIN (WRIST PAIN). [facility] TAKE 1 CAPSULE BY MOUTH EVERY DAY WITH FOOD 06-09 00:00: 00 Yes Richard Arcos TAKE 1 CAPSULE TWICE DAILY. 06-09 00:00: 00 09-24 00:00 :00 No 25 Richard Arcos TAKE 1 TABLET BY MOUTH ONCE DAILY 06-09 00:00: 00 09-24 00:00 :00 No 375 Richard Arcos tirzepatide (MOUNJARO) 2.5 mg/0.5 mL PnIj 2022-05 00:00: 00 11-05 00:00 :00 No [id number] 2.5mg inject 2.5 mg under the skin weekly. [facility] tirzepatide (MOUNJARO) 5 mg/0.5 mL PnIj 2022-05 00:00: 00 11-05 00:00 :00 No [id number] 5mg inject 5 mg under the skin weekly. [facility] levonorgest reL (MIRENA) 20 mcg/24 hours (8 yrs) 52 mg IUD 2022-05 10:48: 28 Yes as directed [facility] ergocalcife rol, vitamin D2, (VITAMIN D ORAL) 2022-05 10:48: 28 Yes Take by mouth daily. [facility] tirzepatide (MOUNJARO) 2.5 mg/0.5 mL PnIj 2022-05 00:00: 00 11-05 00:00 :00 No [id number] 2.5mg inject 2.5 mg under the skin weekly. [facility] TAKE 1 TABLET BY MOUTH ONCE DAILY NEEDED FOR PAIN (WRIST PAIN). 2022-05 00:00: 00 Yes Richard Carrillo Isrrael meloxicam 15 mg tablet 2022-05 00:00: 00 07-07 00:00 :00 No [id number] 9100 15mg Take 1 tablet by mouth once daily as needed for Pain (wrist pain). [facility] TAKE 1 CAPSULE BY MOUTH EVERY DAY 2022-05 00:00: 00 Yes Richard Arcos HYDROXYZINE PAMOATE 25 MG 2022-05 00:00: 00 Yes Richard Carrillo Isrrael TAKE 1 CAPSULE TWICE DAILY. 2022-05 00:00: 00 09-24 00:00 :00 No 25 Richard Arcos TAKE 1 CAPSULE ONCE DAILY WITH FOOD. 2022-05 00:00: 00 09-24 00:00 :00 No 75 Richard Lorena Arcos TAKE 1 TABLET BY MOUTH ONCE DAILY 2022-05 00:00: 00 09-24 00:00 :00 No 375 Richard Arcos lactated ringers IV infusion 1,000 mL 2022-05 16:30: 00 Yes 1000mL at 75 mL/hr, 1,000 mL, IV Infusion, CONTINUOUS , Starting on Fri04/07/23 at 1030, Until Discontinu ed, Routine, PACU [facility] HYDROcodone -acetaminop hen (NORCO) 10-325 mg tablet 1 tablet 2022-05 16:22: 30 Yes 1{tbl} 1 tablet, Oral, PRN, 1 dose, Starting on Fri04/07/23 at 1022, Until Discontinu ed, Routine, Pain (scale 7-10), DSU Recovery [facility] HYDROcodone -acetaminop hen (NORCO 5) 5-325 mg tablet 1 tablet 2022-05 16:22: 30 Yes 1{tbl} 1 tablet, Oral, PRN, 1 dose, Starting on Fri04/07/23 at 1022, Until Discontinu ed, Routine, Pain (scale 4-6), DSU Recovery [facility] ibuprofen (IBU) tablet 800 mg 2022-05 16:22: 30 Yes 800mg 800 mg, Oral, PRN, 1 dose, Starting on Fri04/07/23 at 1022, Until Discontinu ed, Routine, Pain (scale 1-3), DSU Recovery [facility] FENTanyl PF (SUBLIMAZE (PF)) injection 25 mcg 2022-05 16:22: 23 Yes 25ug 25 mcg, Slow IV Push, Q5MIN PRN, 4 doses, Starting on Fri04/07/23 at 1022, Until Discontinu ed, Routine, Pain (scale 4-6), PACU [facility] HYDROmorphO ne (DILAUDID) injection 0.2 mg 2022-05 16:22: 23 Yes .2mg 0.2 mg, Slow IV Push, Q5MIN PRN, 10 doses, Starting on Fri04/07/23 at 1022, Until Discontinu ed, Routine, Pain (scale 7-10), PACU
Us e approved by (Faculty): PACU USE -ANESTHESI A SERVICE-HY DROMORPHON E INJECTIONS [facility] ondansetron (ZOFRAN (PF)) injection 4 mg 2022-05 16:22: 23 04-07 16:26 :00 No 4mg 4 mg, Slow IV Push, PRN, 1 dose, Starting on Fri04/07/23 at 1022, Until Fri04/07/23 at 1026, Routine, Nausea and Vomiting (N/V), PACU [facility] ferric subsulfate (MONSEL'S) solution 2022-05 15:37: 00 04-07 16:01 :59 No PRN, Starting on Fri04/07/23 at 0937, Until Fri04/07/23 at 1001, Routine, Intra-op [facility] iodine strong (LUGOL'S) (LUGOL'S SOLUTION) 5 % solution 2022-05 15:29: 00 Yes PRN, Starting on Fri04/07/23 at 0929, Until Discontinu ed, Routine, Intra-op [facility] lidocaine-e pinephrine (XYLOCAINE WITH EPINEPHRINE ) 1 %-1:100,000 injection 2022-05 15:29: 00 04-07 16:01 :59 No PRN, Starting on Fri04/07/23 at 0929, Until Fri04/07/23 at 1001, Routine, Intra-op [facility] sodium chloride 0.9 % irrigation solution 2022-05 15:28: 00 04-07 16:01 :59 No PRN, Starting on Fri04/07/23 at 0928, Until Fri04/07/23 at 1001, Intra-op [facility] lactated ringers IV infusion 1,000 mL 2022-05 13:45: 00 04-07 13:52 :00 No 1000mL at 42 mL/hr, 1,000 mL, IV Infusion, ONCE, 1 dose, On Fri04/07/23 at 0745, Routine, DSU Pre-op [facility] levonorgest reL (MIRENA) 20 mcg/24 hours (8 yrs) 52 mg IUD 2022-05 11:55: 20 Yes as directed [facility] ergocalcife rol, vitamin D2, (VITAMIN D ORAL) 2022-05 11:55: 20 Yes Take by mouth daily. [facility] HYDROCODONE BITARTRATE/ ACETAMINOPH E N 5-325 MG TABS 2022-05 00:00: 00 Yes Richard Arcos HYDROcodone -acetaminop hen 5-325 mg tablet 2022-05 00:00: 00 04-15 05:59 :00 No [id number] 1{tbl} Take 1 tablet by mouth every 6 (six) hours as needed for Pain (scale 4-6) or Pain (scale 7-10) for up to 7 days. Indication s: acute pain [facility] ergocalcife rol, vitamin D2, (VITAMIN D ORAL) 2022-05 11:11: 42 Yes Take by mouth daily. [facility] levonorgest reL (MIRENA) 20 mcg/24 hours (8 yrs) 52 mg IUD 2022-05 11:11: 42 Yes as directed [facility] VENLAFAXINE HCL ER 37.5 MG CAPSULE, EXT RELEASE 24 HR 2022-05 00:00: 00 Yes Richard Arcos hydrOXYzine 25 mg capsule 2022-05 00:00: 00 Yes 25mg Take 1 capsule by mouth at bedtime. [facility] VENLAFAXINE HYDROCHLORI DE ER 37.5 MG CP24 2022-05 00:00: 00 Yes Richard Acros TAKE 1 CAPSULE TWICE DAILY. 2022-05 00:00: [...] 1 capsule by mouth in the morning. [facility] VENLAFAXINE HCL ER 37.5 MG CP24 02-13 00:00: 00 Yes Richard Arcos TAKE 1 CAPSULE TWICE DAILY. 02-13:00: 00 09-24 00:00 :00 No 25 Richard [...] 7 DAYS 01-14 00:00: 00 Yes Richard Arcos TAKE 1 CAPSULE ONCE DAILY [...] 01-14 00:00: 00 01-22 04:59 :00 No [id number] 1{tbl} Take 1 tablet by mouth in the morning and 1 tablet in the evening. Do all this for 7 days. [facility] TIZANIDINE HCL 2 MG TABS 01-07 00:00: 00 Yes Richard Arcos tiZANidine 2 mg capsule 01-07 00:00: 00 11-05 00:00 :00 No [id number] 2mg Take 1 capsule by mouth in the morning and 1 capsule at noon and 1 capsule in the evening. [facility] TAKE 1 CAPSULE ONCE DAILY WITH FOOD. 12-18 00:00: 00 09-24 00:00 :00 No 75 Richard Arcos TAKE 1 CAPSULE TWICE DAILY. 12-18 00:00: 00 09-24 00:00 :00 No 25 Richard Arcos TAKE 1 TABLET BY MOUTH ONCE DAILY - 00:00: 00 09-24 00:00 :00 No 375 [...] 10-04 00:00: 00 01-07 00:00 :00 No [id number] 25mg Take 1 tablet by mouth in the morning and 1 tablet at noon and 1 tablet in the evening. Take with meals. [facility] TAKE 1 TABLET TWICE DAILY. 09-30 00:00: [...] morning and 1 tablet in the evening. [facility] VENLAFAXINE HCL ER 37.5 MG TABLET, EXTENDED RELEASE 24 HR 09-17 00:00: 00 Yes Richard Arcos TAKE 1 TABLET BY MOUTH ONCE DAILY 09-16 00:00: 00 09-24 00:00 :00 No 375 Richard Arcos levonorgest reL (MIRENA) 20 mcg/24 hours (8 yrs) 52 mg IUD 09-11 10:57: 03 Yes as directed [facility] Venlafaxine 37.5 mg TR24 09-02 00:00: 00 Yes 1{tbl} Take 1 tablet by mouth in the morning. [facility] hydrOXYzine 10 mg tablet 09-02 00:00: 00 11-05 00:00 :00 No 25mg Take 2.5 tablets by mouth at bedtime. [facility] TAKE 1 CAPSULE ONCE DAILY WITH FOOD. [...] :00 No Richard Arcos TAKE 1 TABLET TWICE DAILY [...] 07-01 00:00: 00 10-04 00:00 :00 No [id number] 100mg Take 1 capsule by mouth in the morning and 1 capsule at noon and 1 capsule in the evening. [facility] valACYclovi r 1 gram tablet 07-01 00:00: 00 07-09 05:59 :00 No [id number] 1g Take 1 tablet by mouth in the morning and 1 tablet at noon and 1 tablet in the evening. Do all this for 7 days. [facility] metoprolol succinate XL 25 mg 24 hr tablet 06-24 15:18: 43 06-24 00:00 :00 No 1 tablet [facility] metformin ER 500 mg 24 hr tablet 06-24 15:18: 31 06-24 00:00 :00 No 1 tablet with evening meal [facility] citalopram 40 mg tablet 06-24 15:18: 21 06-24 00:00 :00 No 1 tablet [facility] levonorgest reL (MIRENA) 20 mcg/24 hours (8 yrs) 52 mg IUD 06 15:12: 55 Yes as directed [facility] busPIRone 5 mg tablet 1-11 00:00: 00 10-04 00:00 :00 No 5mg Take 1 tablet by mouth 2 (two) times daily as needed. [facility] ESCITALOPRA M OXALATE 20 MG TABS 2021-05 2 00:00: 00 09-24 00:00 :00 No Richard Arcos TAKE 1 TABLET BY MOUTH EVERY 8 HOURS NEEDED FOR PAIN 2021-05 00:00: 00 09-24 00:00 :00 No Richard Lorena Arcos CHLORHEXIDI NE GLUCONATE 0.12 % SOLN 2021-05 00:00: 00 09-24 00:00 :00 No Richard Arcos AMOXICILLIN /CLAVULANAT E POTASSIUM 875-125 MG [...] 11-13 00:00: 00 06-24 00:00 :00 No [id number] 50ug Take 1 tablet by mouth every morning. [facility] Blood Pressure Monitor (BLOOD PRESSURE KIT) Kit 08-21 00:00: 00 Yes [id number] Use as directed [facility] Blood Pressure Monitor (BLOOD PRESSURE KIT) Kit 08-21 00:00: 00 04-01 00:00 :00 No [id number] Use as directed [facility] Vital Signs Vital Name Observation Time Observation Value Comments Pineda padilla Systolic blood pressure 2023-12-31 15:28:00 110 mm[Hg] [facility] Diastolic blood pressure 2023-12-31 15:28:00 68 mm[Hg] [facility] Heart rate 2023-12-31 15:28:00 84 /min [facility] Body temperature 2023-12-31 15:28:00 36.56 Elena [facility] Respiratory rate 2023-12-31 15:28:00 17 /min [facility] Body height 2023-12-31 15:28:00 170.2 cm [facility] Body weight 2023-12-31 15:28:00 133.675 kg [facility] BMI 2023-12-31 15:28:00 46.16 kg/m2 [facility] Systolic blood pressure 2023-11-06 12:45:00 109 mm[Hg] [facility] Diastolic blood pressure 2023-11-06 12:45:00 63 mm[Hg] [facility] Heart rate 2023-11-06 12:45:00 84 /min [facility] Body temperature 2023-11-06 12:45:00 36.17 Elena [facility] Respiratory rate 2023-11-06 12:45:00 18 /min [facility] Body height 2023-11-06 12:45:00 170.2 cm [facility] Body weight 2023-11-06 12:45:00 132.178 kg [facility] BMI 2023-11-06 12:45:00 45.64 kg/m2 [facility] Systolic blood pressure 2023-05-06 16:15:00 101 mm[Hg] [facility] Diastolic blood pressure 2023-05-06 16:15:00 69 mm[Hg] Outlook o [facility] Heart rate 2023-05-06 16:15:00 73 /min [facility] Body temperature 2023-05-06 16:15:00 36.28 Elena [facility] Body height 2023-05-06 16:15:00 170.2 cm [facility] Body weight 2023-05-06 16:15:00 130.046 kg [facility] BMI 2023-05-06 16:15:00 44.90 kg/m2 [facility] Systolic blood pressure 2023-04-29 16:47:00 110 mm[Hg] Outlook o [facility] Diastolic blood pressure 2023-04-29 16:47:00 61 mm[Hg] [facility] Heart rate 2023-04-29 16:47:00 76 /min [facility] Respiratory rate 2023-04-29 16:47:00 18 /min [facility] Body height 2023-04-29 16:47:00 170.2 cm [facility] Body weight 2023-04-29 16:47:00 127.914 kg [facility] BMI 2023-04-29 16:47:00 44.17 kg/m2 [facility] Systolic blood pressure 2023-04-23 19:51:00 117 mm[Hg] Outlook o [facility] Diastolic blood pressure 2023-04-23 19:51:00 79 mm[Hg] [facility] Heart rate 2023-04-23 19:51:00 81 /min [facility] Body height 2023-04-23 19:51:00 170.2 cm [facility] Body weight 2023-04-23 19:51:00 127.506 kg [facility] BMI 2023-04-23 19:51:00 44.03 kg/m2 [facility] Oxygen saturation in Arterial blood by Pulse oximetry 2023-04-23 19:51:00 99 /min [facility] Heart rate 2023-04-07 16:54:00 71 /min [facility] Oxygen saturation in Arterial blood by Pulse oximetry 2023-04-07 16:54:00 92 /min [facility] Systolic blood pressure 2023-04-07 16:53:00 115 mm[Hg] [facility] Diastolic blood pressure 2023-04-07 16:53:00 91 mm[Hg] [facility] Respiratory rate 2023-04-07 16:53:00 17 /min [facility] Body temperature 2023-04-07 16:03:00 36.44 Elena [facility] Body height 2023-03-31 20:00:00 170.2 cm [facility] Body weight 2023-03-31 20:00:00 128.822 kg [facility] BMI 2023-03-31 20:00:00 44.48 kg/m2 [facility] [facility] Systolic blood pressure 2023-04-07 13:48:00 110 mm[Hg] [facility] Diastolic blood pressure 2023-04-07 13:48:00 75 mm[Hg] [facility] Heart rate 2023-04-07 13:48:00 75 /min Unive [facility] Body temperature 2023-04-07 13:48:00 36.67 Elena [facility] Respiratory rate 2023-04-07 13:48:00 17 /min [facility] Oxygen saturation in Arterial blood by Pulse oximetry 2023-04-07 13:48:00 100 /min [facility] Body height 2023-03-31 20:00:00 170.2 cm Univ [facility] Body weight 2023-03-31 20:00:00 128.822 kg [facility] BMI 2023-03-31 20:00:00 44.48 kg/m2 Univ [facility] Systolic blood pressure 2023-04-01 17:04:00 128 mm[Hg] [facility] Diastolic blood pressure 2023-04-01 17:04:00 83 mm[Hg] [facility] Heart rate 2023-04-01 17:04:00 65 /min Unive [facility] Body temperature 2023-04-01 17:04:00 36.61 Elena [facility] Respiratory rate 2023-04-01 17:04:00 16 /min [facility] Body height 2023-04-01 17:04:00 170.2 cm Univ [facility] Body weight 2023-04-01 17:04:00 129.23 kg Univ [facility] BMI 2023-04-01 17:04:00 44.62 kg/m2 [facility] Oxygen saturation in Arterial blood by Pulse oximetry 2023-04-01 17:04:00 97 /min [facility] Systolic blood pressure 2023-03-20 14:56:00 133 mm[Hg] [facility] Diastolic blood pressure 2023-03-20 14:56:00 59 mm[Hg] [facility] Heart rate 2023-03-20 14:56:00 64 /min Unive [facility] Body temperature 2023-03-20 14:56:00 36.72 Elena [facility] Respiratory rate 2023-03-20 14:56:00 16 /min [facility] Body height 2023-03-20 14:56:00 170.2 cm [facility] Body weight 2023-03-20 14:56:00 129.91 kg Univ [facility] BMI 2023-03-20 14:56:00 44.86 kg/m2 [facility] Oxygen saturation in Arterial blood by Pulse oximetry 2023-03-20 14:56:00 97 /min [facility] Systolic blood pressure 2023-03-17 19:52:00 128 mm[Hg] [facility] Diastolic blood pressure 2023-03-17 19:52:00 63 mm[Hg] [facility] Heart rate 2023-03-17 19:52:00 78 /min Unive [facility] Body temperature 2023-03-17 19:52:00 36.39 Elena [facility] Respiratory rate 2023-03-17 19:52:00 17 /min [facility] Body height 2023-03-17 19:52:00 170.2 cm [facility] weight 2023-03-17 19:52:00 129.275 kg Univ [facility] BMI 2023-03-17 19:52:00 44.64 kg/m2 [facility] Systolic blood pressure 2023-02-10 15:47:00 113 mm[Hg] [facility] Diastolic blood pressure 2023-02-10 15:47:00 78 mm[Hg] [facility] Heart rate 2023-02-10 15:47:00 66 /min Unive [facility] Respiratory rate 2023-02-10 15:47:00 18 /min [facility] Body height 2023-02-10 15:47:00 170.2 cm [facility] Body weight 2023-02-10 15:47:00 128.277 kg [facility] BMI 2023-02-10 15:47:00 44.29 kg/m2 [facility] Oxygen saturation in Arterial blood by Pulse oximetry 2023-02-10 15:47:00 99 /min [facility] Systolic blood pressure 2023-01-14 14:57:00 107 mm[Hg] [facility] Diastolic blood pressure 2023-01-14 14:57:00 73 mm[Hg] [facility] Heart rate 2023-01-14 14:57:00 98 /min [facility] Body height 2023-01-14 14:57:00 170.2 cm [facility] Body weight 2023-01-14 14:57:00 127.461 kg [facility] BMI 2023-01-14 14:57:00 44.01 kg/m2 [facility] Oxygen saturation in Arterial blood by Pulse oximetry 2023-01-14 14:57:00 100 /min [facility] Systolic blood pressure 2023-01-07 16:25:00 117 mm[Hg] [facility] Diastolic blood pressure 2023-01-07 16:25:00 71 mm[Hg] [facility] Heart rate 2023-01-07 16:25:00 65 /min [facility] Body height 2023-01-07 16:25:00 170.2 cm [facility] Body weight 2023-01-07 16:25:00 127.007 kg [facility] BMI 2023-01-07 16:25:00 43.85 kg/m2 [facility] Oxygen saturation in Arterial blood by Pulse oximetry 2023-01-07 16:25:00 98 /min [facility] Systolic blood pressure 2022-12-16 18:26:00 106 mm[Hg] [facility] Diastolic blood pressure 2022-12-16 18:26:00 74 mm[Hg] [facility] Heart rate 2022-12-16 18:26:00 75 /min [facility] Body height 2022-12-16 18:26:00 170.2 cm [facility] Body weight 2022-12-16 18:26:00 128.368 kg [facility] BMI 2022-12-16 18:26:00 44.32 kg/m2 [facility] Oxygen saturation in Arterial blood by Pulse oximetry 2022-12-16 18:26:00 98 /min [facility] Systolic blood pressure 2022-11-20 16:50:00 122 mm[Hg] [facility] Diastolic blood pressure 2022-11-20 16:50:00 86 mm[Hg] [facility] Heart rate 2022-11-20 16:49:00 81 /min [facility] Body height 2022-11-20 16:49:00 170.2 cm [facility] Body weight 2022-11-20 16:49:00 130.182 kg [facility] BMI 2022-11-20 16:49:00 44.95 kg/m2 [facility] Oxygen saturation in Arterial blood by Pulse oximetry 2022-11-20 16:49:00 98 /min [facility] Systolic blood pressure 2022-10-30 16:30:00 103 mm[Hg] [facility] Diastolic blood pressure 2022-10-30 16:30:00 71 mm[Hg] [facility] Heart rate 2022-10-30 16:20:00 72 /min Unive [facility] Body temperature 2022-10-30 16:20:00 36.67 Elena [facility] Respiratory rate 2022-10-30 16:20:00 18 /min [facility] Body height 2022-10-30 16:20:00 170.2 cm [facility] Body weight 2022-10-30 16:20:00 130.999 kg [facility] BMI 2022-10-30 16:20:00 45.23 kg/m2 [facility] Oxygen saturation in Arterial blood by Pulse oximetry 2022-10-30 16:20:00 97 /min [facility] Systolic blood pressure 2022-10-16 13:14:00 100 mm[Hg] [facility] Diastolic blood pressure 2022-10-16 13:14:00 70 mm[Hg] [facility] Heart rate 2022-10-16 13:14:00 75 /min Unive [facility] Body temperature 2022-10-16 13:14:00 36.78 Elena [facility] Body height 2022-10-16 13:14:00 170.2 cm [facility] Body weight 2022-10-16 13:14:00 133.358 kg [facility] BMI 2022-10-16 13:14:00 46.05 kg/m2 [facility] Oxygen saturation in Arterial blood by Pulse oximetry 2022-10-16 13:14:00 99 /min [facility] Systolic blood pressure 2022-10-07 16:29:00 103 mm[Hg] [facility] Diastolic blood pressure 2022-10-07 16:29:00 81 mm[Hg] [facility] Heart rate 2022-10-07 16:29:00 70 /min Unive [facility] Body temperature 2022-10-07 16:29:00 36.83 Elena [facility] Respiratory rate 2022-10-07 16:29:00 20 /min [facility] Body height 2022-10-07 16:29:00 173.7 cm [facility] Body weight 2022-10-07 16:29:00 134.401 kg [facility] BMI 2022-10-07 16:29:00 44.53 kg/m2 [facility] Oxygen saturation in Arterial blood by Pulse oximetry 2022-10-07 16:29:00 100 /min [facility] Systolic blood pressure 2022-10-04 18:57:00 98 mm[Hg] [facility] Diastolic blood pressure 2022-10-04 18:57:00 78 mm[Hg] [facility] Heart rate 2022-10-04 18:56:00 77 /min Unive [facility] Body temperature 2022-10-04 18:56:00 37 Elena [facility] Body height 2022-10-04 18:56:00 170.2 cm [facility] Body weight 2022-10-04 18:56:00 133.811 kg [facility] BMI 2022-10-04 18:56:00 46.20 kg/m2 [facility] Systolic blood pressure 2022-09-11 15:46:00 112 mm[Hg] [facility] Diastolic blood pressure 2022-09-11 15:46:00 79 mm[Hg] [facility] Heart rate 2022-09-11 15:46:00 65 /min [facility] Body temperature 2022-09-11 15:46:00 36.17 Elena [facility] Respiratory rate 2022-09-11 15:46:00 18 /min [facility] Body height 2022-09-11 15:46:00 170.2 cm [facility] Body weight 2022-09-11 15:46:00 134.265 kg [facility] BMI 2022-09-11 15:46:00 46.36 kg/m2 [facility] Oxygen saturation in Arterial blood by Pulse oximetry 2022-09-11 15:46:00 98 /min r/a [facility] Systolic blood pressure 2022-07-01 21:35:00 107 mm[Hg] [facility] Diastolic blood pressure 2022-07-01 21:35:00 60 mm[Hg] [facility] Heart rate 2022-07-01 21:35:00 81 /min Unive [facility] Body temperature 2022-07-01 21:35:00 37.33 Elena [facility] Body height 2022-07-01 21:35:00 170.2 cm [facility] Body weight 2022-07-01 21:35:00 136.079 kg [facility] BMI 2022-07-01 21:35:00 46.99 kg/m2 [facility] Oxygen saturation in Arterial blood by Pulse oximetry 2022-07-01 21:35:00 98 /min [facility] Body height 2022-06-24 21:13:00 170.2 cm [facility] Body weight 2022-06-24 21:13:00 136.533 kg [facility] BMI 2022-06-24 21:13:00 47.14 kg/m2 [facility] Oxygen saturation in Arterial blood by Pulse oximetry 2022-06-24 21:13:00 99 /min [facility] Systolic blood pressure 2022-06-24 21:13:00 97 mm[Hg] [facility] Diastolic blood pressure 2022-06-24 21:13:00 64 mm[Hg] [facility] Heart rate 2022-06-24 21:13:00 73 /min Unive [facility] Body temperature 2022-06-24 21:13:00 36.83 Elena [facility] BP Systolic 2024-08-18 15:46:00 96 mm[Hg] Pillo Arcos BP Diastolic 2024-08-18 15:46:00 71 mm[Hg] Dennys Arcos Weight Measured 2024-08-18 15:46:00 286.60 pounds Richard Arcos Height Measured 2024-08-18 15:46:00 67.50 inches Richard Arcos Body Temperature 2024-08-18 15:46:00 97.80 degrees Richard F Isrrael Heart Rate 2024-08-18 15:46:00 83.00 /min Francisca en F Isrrael Respiratory Rate 2024-08-18 15:46:00 17.00 /min Richard F Isrrael BP Systolic 2023-01-08 08:12:00 116 mm[Hg] Step hen F Isrrael BP Diastolic 2023-01-08 08:12:00 79 mm[Hg] Dennys phen F Isrrael Weight Measured 2023-01-08 08:12:00 280.00 pounds Richard F Isrrael Height Measured 2023-01-08 08:12:00 67.50 [...] Weight Measured 2022-07-10 10:45:00 302.00 pounds Richard Arcos Height Measured 2022-07-10 10:45:00 67.50 inches Richard Arcos Body Temperature 2022-07-10 10:45:00 98.20 degrees Richard F Isrrael Heart Rate 2022-07-10 10:45:00 65.00 /min Francisca en F Isrrael Respiratory Rate 2022-07-10 10:45:00 18.00 /min Richard Arcos Procedures Procedure Date / Time Performed Performing Clinician Source CERVICAL CONIZATION 2023-04-07 14:54:00 Bárbara Hernandez [facility] DSU PRE-OP 2023-04-01 06:01:00 Doctor Unass igned, [place] [facility] INSURANCE CORRESPONDENCE 2023-03-27 06:01:00 Doc tor Unassigned, [place] [facility] INSURANCE CORRESPONDENCE 2023-03-27 06:01:00 Doc liliana Unassigned, [place] [facility] DISCLOSURE AND CONSENT MEDICAL & SURGICAL PROCEDURES - FEMALM 2023-03-17 05:01:00 Doctor Unassigned, [place] [facility] POCT TEST 2023-03-17 00:00:00 Bárbara Hernandez [facility] DISABILITY/FMLA 2023-01-21 05:01:00 Doctor Unass igned, [place] [facility] XR FOOT 3+ VW RIGHT 2023-01-07 18:06:01 Criss Leyva [facility] POCT TEST 2023-01-07 17:03:00 Criss Leyva [facility] SLEEP STUDY DATA REPORT 2022-11-14 05:01:00 Doct or Unassigned, [place] [facility] LAB ONLY PAP SMEAR-LIQUID BASED 2022-10-16 14:06:00 Criss Leyva [facility] GALV ONLY - VAGINAL PATHOGENS BY NUCLEIC ACID TESTING 2022-10-16 14:06:00 Criss Leyva [facility] PAP SMEAR-LIQUID BASED-CP 2022-10-16 14:06:00 Preet Leyva [facility] POCT TEST 2022-10-04 20:08:00 [facility] VITAMIN B12, LEVEL 2022-09-11 16:30:00 Jelly Waters [facility] FREE T4 2022-09-11 16:30:00 [facility] THYROID STIMULATING HORMONE 2022-09-11 16:30:00 Jelly Waters [facility] URINALYSIS 2022-09-11 16:30:00 Jelly Waters [facility] ANTI-SSB(LA) 2022-09-11 16:30:00 [facility] ANTI-DOUBLE STRANDED DNA 2022-09-11 16:30:00 Alejandro Waters [facility] C-REACTIVE PROTEIN 2022-07-01 22:27:00 Criss Leyva [facility] SEDIMENTATION RATE 2022-07-01 22:27:00 Criss Leyva [facility] VITAMIN D, 25-OH 2022-07-01 22:27:00 Criss Leyva [facility] CONSENT/REFUSAL FOR DIAGNOSIS AND TREATMENT 2022-06-24 20:59:39 Doctor Unassigned, [place] [facility] ASSIGNMENT OF BENEFITS 2022-06-24 20:59:23 Dochunter r Unassigned, [place] [facility] FREE T4 2018-12-22 22:15:00 Jeannie Mendieta [facility] THYROID STIMULATING HORMONE 2018-12-22 22:15:00 Jeannie Mendieta [facility] ASSIGNMENT OF BENEFITS 2018-12-22 21:51:15 Chuyita r Unassigned, [place] [facility] Encounters Start Date/Time End Date/Time Encounter Type Admission Type Attending [facility] Care Department Encounter ID Source 2023-05-06 12:35:02 Outpatient BRENNEN ROGER [facility] [id number] [facility] 2024-08-19 08:29:39 2024-08-19 08:29:39 Outpatient SFA SFA [id number] Richard Arcos 2024-08-18 15:28:41 2024-08-18 15:28:41 Outpatient SFA SFA [id number] Richard Carrillo Isrrael 2024-08-18 00:00:00 2024-08-18 00:00:00 Outpatient Visit SFA [id number] Richard Carrillo Isrrael 2024-07-19 09:17:44 2024-07-19 09:17:44 Outpatient SFA SFA [id number] Richard Carrillo Isrrael 2024-07-10 10:04:32 2024-07-10 10:04:32 Outpatient SFA SFA [id number] Richard Carrillo Isrrael 2024-07-09 11:01:34 2024-07-09 11:01:34 Outpatient SFA SFA [id number] Richard Carrillo Isrrael 2024-06-21 08:25:59 2024-06-21 08:25:59 Outpatient SFA SFA [id number] Richard Carrillo Isrrael 2024-02-23 00:00:00 2024-03-27 18:24:07 Patient Secure Criss Alves [facility] 1.2.840.114 350.1.13.10 4.2.7.2.686 [id number] [facility] 2024-03-23 09:27:15 2024-03-23 09:27:15 Outpatient SFA [facility] [id number] Richard Arcos 2024-02-21 00:00:00 2024-02-23 15:55:27 Patient Secure Criss Alves [facility] 1.2.840.114 350.1.13.10 4.2.7.2.686 [id number] [facility] 2023-12-31 10:30:00 2023-12-31 10:45:22 Outpatient R MARJORIE BENÍTEZ [facility] [id number] [facility] 2023-12-31 10:30:00 2023-12-31 10:45:22 Office Visit Marjorie Benítez [facility] MATERNAL & CHILD [facility] 1.2.840.114 350.1.13.10 4.2.7.2.686 [id number] [facility] 2023-12-25 10:07:46 2023-12-25 10:07:46 Outpatient SFA [facility] [id number] Richard Arcos 2023-12-22 00:00:00 2023-12-23 09:24:19 Telephone Marjorie Benítez [facility]PITALIST [facility]ILD [facility] 1..840.114 350.1.13.10 4.2.7.2.686 [id number] [facility] 2023-12-22 10:30:00 2023-12-22 10:30:00 Outpatient R MARJORIE BENÍTEZ [facility] [id number] [facility] 2023-11-06 07:45:00 2023-11-06 08:33:44 Outpatient R MARJORIE BENÍTEZ [facility] [id number] [facility] 2023-11-06 07:45:00 2023-11-06 08:33:44 Office Visit Marjorie Benítez [facility] & [facility] 1.840.114 350.1.13.10 4.2.7.2.686 [id number] [facility] 2023-11-04 08:30:00 2023-11-04 08:30:00 Outpatient R SALGADO-TD S, BÁRBARA SALGADO-TD S, BÁRBARA [facility] [id number] [facility] 2023-10-28 08:30:00 2023-10-28 08:30:00 Outpatient R SALGADO-TD S, BÁRBARA SALGADO-TD S, BÁRBARA [facility] [id number] [facility] 2023-10-27 17:28:24 2023-10-27 17:28:24 Outpatient SFA SFA [id number] Richard Arcos 2023-10-24 15:16:43 2023-10-24 15:16:43 Outpatient SFA SFA [id number] Richard Arcos 2023-08-27 11:41:54 2023-08-27 11:41:54 Outpatient SFA SFA [id number] Richard Arcos 2023-08-11 00:00:00 2023-08-11 00:00:00 Telephone VikaCriss ram [facility] 1.840.114 350.1.13.10 4.2.7.2.686 [id number] [facility] 2023-07-06 00:00:00 2023-07-06 00:00:00 Refill Autumn [facility] 1..840.114 350.1.13.10 4.2.7.2.686 [id number] [facility] 2023-05-06 10:58:37 2023-05-06 23:59:00 Outpatient R BRENNEN WAGNER [facility] [id number] [facility] 2023-05-06 10:40:00 2023-05-06 23:59:00 [facility] 1.2.840.114 350.1.13.10 4.2.7.2.686 [id number] [facility] 2023-05-06 10:10:00 2023-05-06 11:34:54 Office Visit Brennen Wagner [facility] 1.2840.114 350.1.13.10 4.2.7.2.686 [id number] [facility] 2023-05-06 00:00:00 2023-05-06 00:00:00 Patient Secure Mssirisha Wagner [facility] MEDICAL OFFICE BUILDING 1.2.840.114 350.1.13.10 4.2.7.2.686 [id number] [facility] 2023-05-05 00:00:00 2023-05-05 00:00:00 Telephone Criss Leyva [facility] H[facility]NAH [facility] 1.2.840.114 350.1.13.10 4.2.7.2.686 [id number] [facility] 2023-04-29 11:00:00 2023-04-29 11:00:00 Office Visit Bárbara Lopez [facility] 1.284.114 350.1.13.10 4.2.7.2.686 [id number] [facility] 2023-04-29 11:00:00 2023-04-29 10:55:42 Outpatient R BÁRBARA LOPEZ MARISOL [facility] [id number] [facility] 2023-04-28 00:00:00 2023-04-28 00:00:00 [facility] 1.2.840.114 350.1.13.10 4.2.7.2.686 [id number] [facility] 2023-04-23 14:30:00 2023-04-23 14:45:00 Morning Show Newscast Producer Visit Lab, Ang - Db [facility] 1..840.114 350.1.13.10 4.2.7.2.686 [id number] [facility] 2023-04-23 14:00:00 2023-04-23 14:23:47 Outpatient R CRISS LEYVA [facility] [id number] [facility] 2023-04-23 14:00:00 2023-04-23 14:23:47 Office Visit Autumn [facility] MED[facility] OFF[facility] BU[facility] 1..840.114 350.1.13.10 4.2.7.2.686 [id number] [facility] 2023-04-08 13:01:17 2023-04-08 13:01:17 Outpatient [facility] [id number] Richard F Isrrael 2023-04-07 07:33:00 2023-04-07 11:00:00 Hospital Encounter Bárbara Lopez [facility] 1..840.114 350.1.13.10 4.2.7.2.686 [id number] [facility] 2023-04-07 07:33:00 2023-04-07 11:00:00 Outpatient R DIALLO Sung, BÁRBARA JODIE LOPEZSOL [facility] SODDER [id number] [facility] 2023-04-07 08:39:00 2023-04-07 09:58:00 [facility] 1.2.840.114 350.1.13.10 4.2.7.2.686 [id number] [facility] 2023-04-05 10:45:00 2023-04-05 11:00:00 Morning Show Newscast Producer Visit Pob, Adc Lab Main Diallo sung Bárbara [facility] 1.2.840.114 350.1.13.10 4.2.7.2.686 [id number] [facility] 2023-04-05 10:45:00 2023-04-05 10:45:00 Outpatient R SALGADO-TD S, BÁRBARA SALGADO-TD S, [facility] [id number] [facility] 2023-04-01 11:00:00 2023-04-01 11:30:00 Office Visit SalgadoCherelleTd pineda [facility] 1.2.840.114 350.1.13.10 4.2.7.2.686 [id number] [facility] 2023-04-01 11:00:00 2023-04-01 11:00:00 Outpatient R SALGADO-TD S, BÁRBARA SALGADO-TD S, BÁRBARA [facility] [id number] [facility] 2023-04-01 00:00:00 2023-04-01 00:00:00 Orders Only Doctor Unassigned, [place] [facility] 1.2.840.114 350.1.13.10 4.2.7.2.686 [id number] [facility] 2023-03-20 10:00:00 2023-03-20 10:30:00 [facility] 1.2840.114 350.1.13.10 4.2.7.2.686 [id number] [facility] 2023-03-20 10:00:00 2023-03-20 10:00:00 Outpatient R SALGADO-TD S, BÁRBARA SALGADO-TD S, BÁRBARA [facility] [id number] [facility] 2023-03-19 20:00:00 2023-03-19 20:00:00 Outpatient R BRISA, ANGIEL BRISA, YESSYHIL [facility] [id number] [facility] 2023-03-19 00:00:00 2023-03-19 00:00:00 Patient Secure Msg Chrissy-Td s, Bárbara [facility] [id number] [facility] 2023-03-17 14:30:00 2023-03-17 15:29:16 Outpatient R SALGADO-TD S, BÁRBARA SALGADO-TD S, BÁRBARA [facility] [id number] [facility] 2023-03-17 14:30:00 2023-03-17 15:29:16 Office Visit Chrissy-Td sJodieBárbara [facility] 1.2.840.114 350.1.13.10 4.2.7.2.686 [id number] [facility] 2023-03-17 00:00:00 2023-03-17 00:00:00 Orders Only Doctor Unassigned, [place] [facility] 1.2840.114 350.1.13.10 4.2.7.2.686 [id number] [id number] [facility] 2023-03-13 16:03:07 2023-03-13 16:03:07 Outpatient SFA SFA [id number] Richard Arcos 2023-03-10 00:00:00 2023-03-10 00:00:00 Patient Secure Msg Doctor Unassigned, [place] [facility] 1..840.114 350.1.13.10 4.2.7.2.686 [id number] [facility] 2023-02-26 11:00:00 2023-02-26 23:59:00 Outpatient LANG PEREZ HOWARD [facility] [id number] [facility] 2023-02-26 11:00:00 2023-02-26 23:59:00 Hospital Encounter Lang [facility], [facility] Eeg RUEL HUTTON ANNEX 1..840.114 350.1.13.10 4.2.7.2.686 [id number] [facility] 2023-02-18 00:00:00 2023-02-18 00:00:00 Patient Secure Msg Doctor Unassigned, [place] RUEL JARRETTY ANNEX 1..840.114 350.1.13.10 4.2.7.2.686 [id number] [id number] [facility] 2023-02-13 15:21:55 2023-02-13 15:21:55 Outpatient [facility] [id number] Richard Arcos 2023-02-10 10:40:00 2023-02-10 11:23:05 Outpatient LANG PEREZ HOWARD [facility] [id number] [facility] 2023-02-10 10:40:00 2023-02-10 11:23:05 Office Visit Lang Jackson [facility]?ZACKYo LANDRY [facility] 1..840.114 350.1.13.10 4.2.7.2.686 [id number] [id number] [facility] 2023-01-21 00:00:00 2023-01-21 00:00:00 Orders Only Doctor Unassigned, [place] [facility] 1..840.114 350.1.13.10 4.2.7.2.686 [id number] [facility] 2023-01-14 15:31:53 2023-01-14 15:31:53 Outpatient [facility] [id number] Richard Arcos 2023-01-14 13:30:00 2023-01-14 13:30:00 Outpatient R CRISS LEYVA [facility] [id number] [facility] 2023-01-14 10:00:00 2023-01-14 10:38:59 Outpatient R CRISS LEYVA [facility] [id number] [facility] 2023-01-14 10:00:00 2023-01-14 10:38:59 Office Visit Criss Leyva [facility] 1..840.114 350.1.13.10 4.2.7.2.686 [id number] [facility] 2023-01-08 08:06:42 2023-01-08 08:06:42 Outpatient [facility] [id number] Richard Arcos 2023-01-08 00:00:00 2023-01-08 00:00:00 Telephone Autumn Criss [facility] 1..840.114 350.1.13.10 4.2.7.2.686 [id number] 044 [id number] [facility] 2023-01-07 12:51:56 2023-01-07 23:59:00 Outpatient R CRISS LEYVA [facility] [id number] [facility] 2023-01-07 12:51:56 2023-01-07 23:59:00 Hospital Encounter Criss Leyva [facility] 1..840.114 350.1.13.10 4.2.7.2.686 [id number] [facility] 2023-01-07 12:15:00 2023-01-07 12:30:00 Morning Show Newscast Producer Visit Lab, Price Valenzuela Criss Le[facility] 1.284.114 350.1.13.10 4.2.7.2.686 [id number] [facility] 2023-01-07 11:30:00 2023-01-07 12:00:00 Office Visit Criss [facility] 1.84.114 350.1.13.10 4.2.7.2.686 [id number] [facility] 2022-12-26 00:00:00 2022-12-26 00:00:00 Patient Secure Msg Criss [facility] 1.84.114 350.1.13.10 4.2.7.2.686 [id number] 044 [id number] [facility] 2022-12-21 00:00:00 2022-12-21 00:00:00 Patient Secure Msg Criss [facility] 1.84.114 350.1.13.10 4.2.7.2.686 [id number] 044 [id number] [facility] 2022-12-18 08:20:49 2022-12-18 08:20:49 Outpatient [facility] [id number] Richard Carrillo Isrrael 2022-12-16 13:30:00 2022-12-16 14:07:58 Outpatient R VIKACRISS Ram [facility] [id number] [facility] 2022-12-16 13:30:00 2022-12-16 14:07:58 Office Visit Criss [facility] 1.84.114 350.1.13.10 4.2.7.2.686 [id number] 044 [id number] [facility] 2022-11-22 00:00:00 2022-11-22 00:00:00 [facility] 1.840.114 350.1.13.10 4.2.7.2.686 [id number] 044 [id number] [facility] 2022-11-21 00:00:00 2022-11-21 00:00:00 Patient Secure Mandy Wagner [facility] 1.84.114 350.1.13.10 4.2.7.2.686 [id number] [id number] [facility] 2022-11-20 11:30:00 2022-11-20 12:00:00 Office Visit Criss Leyva [facility] 1.840.114 350.1.13.10 4.2.7.2.686 [id number] [facility] 2022-11-20 11:30:00 2022-11-20 11:30:00 Outpatient Greg LEYVA CRISS [facility] [id number] [facility] 2022-11-14 20:00:00 2022-11-14 22:30:00 Morning Show Newscast Producer Visit 1, [facility] Bed Manda Atkinson [facility] 1.840.114 350.1.13.10 4.2.7.2.686 [id number] [facility] 2022-11-14 20:00:00 2022-11-14 20:00:00 Outpatient MANDA PASCAL STRAVTAlejandro [facility] [id number] [facility] 2022-11-14 00:00:00 2022-11-14 00:00:00 Orders Only Doctor Unassigned, [place] [facility] 1.2.840.114 350.1.13.10 4.2.7.2.686 [id number] [facility] 2022-10-30 11:30:00 2022-10-30 12:00:00 Office Visit Mandy Wagner [facility] 1.2840.114 350.1.13.10 4.2.7.2.686 [id number] [facility] 2022-10-30 11:30:00 2022-10-30 11:30:00 Outpatient R MANDY WAGNER [facility] [id number] [facility] 2022-10-29 00:00:00 2022-10-29 00:00:00 Patient [facility] 1..840.114 350.1.13.10 4.2.7.2.686 [id number] [id number] [facility] 2022-10-16 08:00:00 2022-10-16 14:55:11 Office Visit Autumn [facility] FINN?ZACKYo [facility] 1.840.114 350.1.13.10 4.2.7.2.686 [id number] [facility] 2022-10-16 08:00:00 2022-10-16 14:55:11 Outpatient R CRISS LEYVA [facility] [id number] [facility] 2022-10-07 11:30:00 2022-10-07 11:55:18 Outpatient R CRISS LEYVA [facility] [id number] [facility] 2022-10-07 11:30:00 2022-10-07 11:55:18 [facility] 1.2.840.114 350.1.13.10 4.2.7.2.686 [id number] [facility] 2022-10-04 14:49:29 2022-10-04 23:59:00 Outpatient R CRISS LEYVA [facility] [id number] [facility] 2022-10-04 13:30:00 2022-10-04 14:50:33 Office Visit Criss Leyva [facility] 1.2840.114 350.1.13.10 4.2.7.2.686 [id number] [facility] 2022-09-23 00:00:00 2022-09-23 00:00:00 Patient Secure Msg [facility] 1.2840.114 350.1.13.10 4.2.7.2.686 [id number] [facility] 2022-09-23 00:00:00 2022-09-23 00:00:00 Telephone Criss Leyva [facility] 1.20.114 350.1.13.10 4.2.7.2.686 [id number] [id number] [facility] 2022-09-11 13:30:00 2022-09-11 13:45:00 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 1.20.114 350.1.13.10 4.2.7.2.686 [id number] [facility] 2022-09-11 10:45:00 2022-09-11 11:19:19 Outpatient R JELLY WATERS [facility] [id number] [facility] 2022-09-11 10:45:00 2022-09-11 11:19:19 Office Visit Jelly Waters [facility] 1.2840.114 350.1.13.10 4.2.7.2.686 [id number] [facility] 2022-08-27 15:15:00 2022-08-27 15:15:00 Outpatient ELIZA GIORDANO [facility] [id number] [facility] 2022-08-14 15:15:00 2022-08-14 16:00:00 Ancillary Visit Surface, Moraima 1, [employer] Suite Zuleyma Rivas L [facility] BLDG. ..840.114 350.1.13.10 4.2.7.2.686 [id number] [facility] 2022-08-14 15:15:00 2022-08-14 15:15:00 Outpatient ZULEYMA MUNOZ [facility] [id number] [facility] 2022-08-06 13:45:00 2022-08-06 13:45:00 Outpatient ZULEYMA MUNOZ [facility] [id number] [facility] 2022-08-06 00:00:00 2022-08-06 00:00:00 Patient Secure Msg Doctor Unassigned, [place] [facility] .84.114 350.1.13.10 4.2.7.2.686 [id number] [id number] [facility] 2022-07-12 00:00:00 2022-07-12 00:00:00 Telephone Criss Leyva [facility] 1.84.114 350.1.13.10 4.2.7.2.686 [id number] 044 [id number] [facility] 2022-07-08 00:00:00 2022-07-08 00:00:00 Patient Secure Msg Doctor Unassigned, [place] [facility] 1.840.114 350.1.13.10 4.2.7.2.686 [id number] 044 [id number] [facility] 2022-07-05 00:00:00 2022-07-05 00:00:00 Telephone Criss Ley[facility] 1.840.114 350.1.13.10 4.2.7.2.686 [id number] [facility] 2022-07-05 00:00:00 2022-07-05 00:00:00 Telephone Criss Ley[facility] 1.84.114 350.1.13.10 4.2.7.2.686 [id number] 044 [id number] [facility] 2022-07-01 16:30:00 2022-07-01 17:25:44 Outpatient R CRISS LEYVA [facility] [id number] [facility] 2022-07-01 16:30:00 2022-07-01 17:25:44 Morning Show Newscast Producer Visit Lab, Price Sandy[facility]al [facility] 1.840.114 350.1.13.10 4.2.7.2.686 [id number] [facility] 2022-07-01 15:30:00 2022-07-01 16:17:16 Office Visit VikaCriss ram [facility] 1.840.114 350.1.13.10 4.2.7.2.686 [id number] 044 [id number] [facility] 2022-06-24 16:00:00 2022-06-24 16:15:00 Morning Show Newscast Producer Visit Lab, Price SandyCriss ram [facility] BUILD[facility] 1.2840.114 350.1.13.10 4.2.7.2.686 [id number] [facility] 2022-06-24 15:00:00 2022-06-24 15:44:54 Outpatient R CRISS LEYVA [facility] [id number] [facility] 2022-06-24 15:00:00 2022-06-24 15:44:54 Office Visit Criss Leyva [facility] 1.2.840.114 350.1.13.10 4.2.7.2.686 [id number] [id number] [facility] 2022-06-24 00:00:00 2022-06-24 00:00:00 Orders Only Doctor Unassigned, [place] [facility] 1.2.840.114 350.1.13.10 4.2.7.2.686 [id number] [facility] 2020-12-14 14:30:00 2020-12-14 14:30:00 Outpatient R SYDNI ACO [facility] [id number] [facility] 2018-12-31 00:00:00 2018-12-31 00:00:00 Telephone Ozzie Juárez [facility] 1..840.114 350.1.13.10 4.2.7.2.686 [id number] [facility] 2018-12-31 00:00:00 2018-12-31 00:00:00 Telephone Ozzie Juárez [facility] 1.2.840.114 350.1.13.10 4.2.7.2.686 [id number] 2018-12-29 00:00:00 2018-12-29 00:00:00 Telephone Ozzie Juárez [facility] Building 1.2.840.114 350.1.13.10 4.2.7.2.686 [id number] [facility] 2018-12-29 00:00:00 2018-12-29 00:00:00 Telephone Ozzie Juárez [facility] 1.2.840.114 350.1.13.10 4.2.7.2.686 [id number] 220 [id number] 2018-12-28 00:00:00 2018-12-28 00:00:00 Telephone Ozzie Juárez [facility] 1.2.840.114 350.1.13.10 4.2.7.2.686 [id number] [facility] 2018-12-28 00:00:00 2018-12-28 00:00:00 Telephone Ozzie Juárez [facility] 1.2.840.114 350.1.13.10 4.2.7.2.686 [id number] 2018-12-22 16:50:48 2018-12-24 21:42:12 Morning Show Newscast Producer Visit 1, [facility] 1.2.840.114 350.1.13.10 4.2.7.2.686 [id number] 2018-12-22 16:50:48 2018-12-24 21:42:12 Morning Show Newscast Producer Visit 1, [facility] Ozzie Juárez [facility] 1.2.840.114 350.1.13.10 4.2.7.2.686 [id number] [facility] 2018-12-22 00:00:00 2018-12-22 00:00:00 Orders Only Doctor Unassigned, [place] [facility] 1.2.840.114 350.1.13.10 4.2.7.2.686 [id number] [facility] 2018-12-21 00:00:00 2018-12-21 00:00:00 Telephone Ozzie Juárez [facility] 1.2.840.114 350.1.13.10 4.2.7.2.686 [id number] [facility] 2018-12-18 00:00:00 2018-12-18 00:00:00 Telephone Ozzie Juárez [facility] 1.2.840.114 350.1.13.10 4.2.7.2.686 [id number] [facility] Results Test Description Test Time Test Comments Results Result Co mments Source Richard ArcosCOMPREHENSIVE METABOLIC [id number] 00:00:00* Test Item Value Reference Range Interpretation Comme nts GLUCOSE (test code = 2345-7) 91 mg/dL UREA NITROGEN (BUN) (test code = 3094-0) 14 mg/dL CREATININE (test code = 2160-0) 0.80 mg/dL EGFR (test code = 97215-0) 102 mL/min/1.73m2 BUN/CREATININE RATIO (test code = 3097-3) SEE NOTE: (calc) SODIUM (test code = 2951-2) 139 mmol/L POTASSIUM (test code = 2823-3) 4.4 mmol/L CHLORIDE (test code = 2075-0) 107 mmol/L CARBON DIOXIDE (test code = 8-9) 24 mmol/L CALCIUM (test code = 87691-1) 10.0 mg/dL PROTEIN, TOTAL (test code = 2885-2) 7.0 g/dL ALBUMIN (test code = 1751-7) 4.6 g/dL GLOBULIN (test code = 17452-1) 2.4 g/dL(calc) ALBUMIN/GLOBULIN RATIO (test code = 1759-0) 1.9 (calc) BILIRUBIN, TOTAL (test code = 1975-2) 0.6 mg/dL ALKALINE PHOSPHATASE (test code = 6768-6) 56 U/L AST (test code = 1920-8) 13 U/L ALT (test code = 1742-6) 13 U/L Richard ArcosHEMOGLOBIN [id number] 00:00:00* Test Item Value Reference Range Interpretation Comme nts HEMOGLOBIN A1c (test code = 4548-4) 5.0 %oftotalHgb Richard ArcosLIPID [id number] 00:00:00* Test Item Value Reference Range Interpretation Comme nts CHOLESTEROL, TOTAL (test cod e = 2093-3) 183 mg/dL HDL CHOLESTEROL (test code = 2085-9) 41 mg/dL TRIGLYCERIDES (test code = 2571-8) 69 mg/dL LDL-CHOLESTEROL (test code = 17064-3) 126 mg/dL(calc) CHOL/HDLC RATIO (test code = 9830-1) 4.5 (calc) NON HDL CHOLESTEROL (test code = 25138-6) 142 mg/dL(calc) Richard [id number] 00:00:00* Test Item Value Reference Range Interpretation Comme nts TSH (test code = 3016-3) 1.17 mIU/L Richard Carrillo [place] [id number] 20:17:00* Test Item Value Reference Range Interpretation Comme nts POCT PREG (test code = 1605) Negative On board controls acceptable with C Line (test code = 3574) Yes POCT PREG LOT # (test code = 3575) POCT PREG TEST DATE ( test code = 3576) [facility] [id number] 20:17:00* Test Item Value Reference Range Interpretation Comme nts POCT PREG (test code = 1605) Negative On board controls acceptable with C Line (test code = 3574) Yes POCT PREG LOT # (test code = 3575) POCT PREG TEST DATE ( test code = 3576) [facility], THIRD [id number] 05:52:53* Test Item Value Reference Range Interpretation Comme nts TSH, THIRD GENERATION (test code = 2821) 1.370 UIU/ML 0.400-4.100 COMPREHENSIVE METABOLIC [id number] 03:38:28* Test Item Value Reference Range Interpretation Comme nts GLUCOSE (test code = 2217) 95 MG/DL 70-99 BUN (test code = 2208) 10 MG/DL 6-20 CREATININE (test code = 2214) 0.95 MG/DL 0.60-1.30 eGFR (2020 CKD-EPI) (test code = 47674) 84 ML/MIN/1.73 >60 CALC BUN/CREAT (test code [...] code = 2218) 9 U/L 5-40 LIPID [id number] 03:38:28* Test Item Value Reference Range Interpretation [...] SPECIMENS. FOR MOREINFORMATION, SEE CLIENT ANNOUNCEMENT AT [email or web address] RISK RATIO LDL/HDL (test code = 2237) 4.11 RATIO <3.22 H HEMOGLOBIN [id number] 02:52:16* Test Item Value Reference Range Interpretation Comme nts HEMOGLOBIN A1c (test code = 49414) 4.9 % 4.2-5.6 UNLESS OTHERWISE INDICATED, ALL TESTING PERFORMED AT [facility] [address] [place] [address] POURED CONCRETE WALL TECHNICIAN: FAHAD RUANO M.D. CLIA NUMBER [id number] [facility] [place]. [id number] CBC W/AUTO DIFF WITH [id number] 01:58:08* Test Item Value Reference Range Interpretation [...] 0.00-0.10 ABS NUCLEATED RBCS (test code = 09641) 0.00 K/UL 0.00-0.11 CBC W/AUTO [id number] 00:00:00* Test Item Value Reference Range Interpretation [...] ABS NUCLEATED RBCS (test cod e = 77046) 0.00 K/UL Richard F AustinCOMPREHENSIVE METABOLIC [id number] 00:00:00* Test Item Value Reference Range Interpretation Comme nts GLUCOSE (test code = 2217) 95 MG/DL BUN (test code = 2208) 10 MG/DL CREATININE (test code = 2214) 0.95 MG/DL eGFR (2020 CKD-EPI) (test co de = 26212) 84 ML/MIN/1.73 CALC BUN/CREAT (test code = [...] code = 2219) 9 U/L Richard ArcosLIPID [id number] 00:00:00* Test Item Value Reference Range Interpretation Comme nts CHOLESTEROL (test code = 2210) 204 MG/DL TRIGLYCERIDES (test code = 2232) 91 MG/DL HDL CHOLESTEROL (test code = 2220) 36 MG/DL CALC LDL CHOL (test code = 2237) 148 MG/DL RISK RATIO LDL/HDL (test cod e = 2238) 4.11 RATIO Richard ArcosTSH, THIRD [id number] 00:00:00* Test Item Value Reference Range Interpretation Comme annalisa TSH, THIRD GENERATION (test code = 2821) 1.370 UIU/ML Richard ArcosHEMOGLOBIN [id number] 00:00:00* Test Item Value Reference Range Interpretation Comme annalisa HEMOGLOBIN A1c (test code = 35178) 4.9 % Rcihard ArcosPOCT [id number] 17:08:00* Test Item Value Reference Range Interpretation Comme nts POCT PREG (test code = 1605) Negative On board controls acceptable with C Line (test code = 3574) Yes POCT PREG LOT # (test code = 6196) [id number] POCT PREG TEST DATE ( test code = 3572) 02/03/2024 Lab Interpretation (test cod e = 13179-5) [id number] 17:08:00* Test Item Value Reference Range Interpretation Comme nts POCT PREG (test code = 1605) Negative On board controls acceptable with C Line (test code = 3574) Yes POCT PREG LOT # (test code = 3575) [id number] POCT PREG TEST DATE ( test code = 3576) 02/03/2024 Lab Interpretation (test cod e = 94589-3) Normal [facility] [id number] 20:09:00* Test Item Value Reference Range Interpretation Comme nts POCT PREG (test code = 1605) Negative On board controls acceptable with C Line (test code = 3574) Yes POCT PREG LOT # (test code = 3575) [id number] POCT PREG TEST DATE ( test code = 3576) 09/16/2023 [facility] [id number] 20:09:00* Test Item Value Reference Range Interpretation Comme nts POCT PREG (test code = 1605) Negative On board controls acceptable with C Line (test code = 3574) Yes POCT PREG LOT # (test code = 3575) [id number] POCT PREG TEST DATE ( test code = 3576) 09/16/2023 [facility]-SM/[id number] 17:24:49* Test Item Value Reference Range Interpretation Comme nts ANTI-SMRNP (test code = 0175629230) Negative Negative NATHALIE (test code = NATHALIE) Positive - Antibod y detected.Negative - No antibody detected. Lab Interpretation (test code = 74695-6) [facility]-SSA(RO)2022-09-12 17:24:49* Test Item Value Reference Range Interpretation Comme nts ANTI-SSA(RO) (test code = 8017516596) Negative Negative NATHALIE (test code = NATHALIE) Positive - Antibod y detected.Negative - No antibody detected. Lab Interpretation (test code = 89811-5) Normal [facility]-SSB(LA)2022-09-12 17:24:49* Test Item Value Reference Range Interpretation Comme nts Anti-SSB(LA) (test code = 4839815961) Negative Negative NATHALIE (test code = NATHALIE) Positive - Antibod y detected.Negative - No antibody detected. Lab Interpretation (test code = 42815-4) Normal [facility]-DOUBLE STRANDED [id number] 17:24:48* Test Item Value Reference Range Interpretation Comme nts ANTI-DSDNA (test code = 1670984684) See_Comment [Automated message] The system which generated this result transmitted reference range: 0.0 - 4.0 IU/mL. The reference range was not used to interpret this result as normal/abnormal. NATHALIE (test code = NATHALIE) Negative ? ?< or = 4 IU/mLPositive ? ? ?> or = 10 IU/mLIndetermin ate ?5-9 IU/mL Lab Interpretation (test code = 18915-8) [facility] [id number] 00:41:07* Test Item Value Reference Range Interpretation Comme nts VIT B12 (test code = 5080420630) 266 pg/mL 240-930 NATHALIE (test code = NATHALIE) Biotin has been reported to cause a positive bias, interpret results relative to patient's use of biotin. Lab Interpretation (test code = 62594-0) [facility] [id number] 00:21:46 * Test Item Value Reference Range Interpretation Comme nts TSH (test code = 7719871639) 0.72 See_Comment [Automated [employer]] The system which generated this result transmitted reference range: 0.45 - 4.70 mIU/L. The reference range was not used to interpret this result as normal/abnormal. Lab Interpretation (test code = 56942-4) [facility] [id number] 00:08:06* Test Item Value Reference Range Interpretation Comme nts FREE T4 (test code = 6483316450) 1.15 See_Comment [Automated [employer]] The system which generated this result transmitted reference range: 0.78 - 2.20 ng/dL:. The reference range was not used to interpret this result as normal/abnormal. Lab Interpretation (test code = 43146-6) [facility] [id number] 17:31:36* Test Item Value Reference Range Interpretation Comme nts CRP (test code = 9247973797) 0.4 mg/dL <=0.8 Lab Interpretation (test cod e = 07979-2) [facility] [id number] 17:31:36* Test Item Value Reference Range Interpretation Comme nts CRP (test code = 7905314834) 0.4 mg/dL <=0.8 Lab Interpretation (test cod e = 99765-2) Normal [facility] [id number] 17:31:36* Test Item Value Reference Range Interpretation Comme nts CRP (test code = 1244865728) 0.4 mg/dL <=0.8 Lab Interpretation (test cod e = 25736-3) Normal [facility], [id number] 08:38:28* Test Item Value Reference Range Interpretation Comme nts VIT D 25OH (test code = 17815-3) 23 ng/mL 25-80 L NATHALIE (test code = NATHALIE) Deficiency: <20 ng/mLInsufficiency: 20-24 ng/mLOptimal: 25-80 ng/mL Lab Interpretation (test code = 58043-6) Abnormal [facility], [id number] 08:38:28* Test Item Value Reference Range Interpretation Comme nts VIT D 25OH (test code = 80588-7) 23 ng/mL 25-80 L NATHALIE (test code = NATHALIE) Deficiency: <20 ng/mLInsufficiency: 20-24 ng/mLOptimal: 25-80 ng/mL Lab Interpretation (test code = 10012-0) Abnormal [facility], [id number] 08:38:28* Test Item Value Reference Range Interpretation Comme nts VIT D 25OH (test code = 66854-9) 23 ng/mL 25-80 L NATHALIE (test code = NATHALIE) Deficiency: <20 ng/mLInsufficiency: 20-24 ng/mLOptimal: 25-80 ng/mL Lab Interpretation (test code = 37393-6) Abnormal [facility] CenterSEDIMENTATION [id number] 05:38:05* Test Item Value Reference Range Interpretation Comme nts ESR (test code = 71661-8) 14 See_Comment [Automated message] The system which generated this result transmitted reference range: 0 - 20 mm/HR. The reference range was not used to interpret this result as normal/abnormal. Lab Interpretation (test code = 14311-1) Normal [facility] CenterSED[facility] [id number] 05:38:05* Test Item Value Reference Range Interpretation Comme nts ESR (test code = 98684-6) 14 See_Comment [Automated message] The system which generated this result transmitted reference range: 0 - 20 mm/HR. The reference range was not used to interpret this result as normal/abnormal. Lab Interpretation (test code = 82016-2) Normal [facility] CenterS[facility] [id number] 05:38:05* Test Item Value Reference Range Interpretation Comme nts ESR (test code = 23624-4) 14 See_Comment [Automated message] The system which generated this result transmitted reference range: 0 - 20 mm/HR. The reference range was not used to interpret this result as normal/abnormal. Lab Interpretation (test code = 98191-7) Normal [facility] CenterTHY[facility]ID STIMULATING [id number] 00:05:00 * Test Item Value Reference Range Interpretation Comme nts TSH (test code = 2890500678) See_Comment L [Automated messa ge] The system which generated this result transmitted reference range: 0.45 - 4.70 mIU/L. The reference range was not used to interpret this result as normal/abnormal. Lab Interpretation (test code = 11324-4) Abnormal [facility] CenterTHY[facility]ID STIMULATING [id number] 00:05:00 * Test Item Value Reference Range Interpretation Comme nts TSH (test code = 2848475266) See_Comment L [Automated messa ge] The system which generated this result transmitted reference range: 0.45 - 4.70 mIU/L. The reference range was not used to interpret this result as normal/abnormal. Lab Interpretation (test code = 85457-8) Abnormal [place] [address] [id number] 23:51:00* Test Item Value Reference Range Interpretation Comme nts FREE T4 (test code = 6093516515) 1.93 ng/dL 0.78-2.2 Lab Interpretation (test cod e = 25001-3) Normal [place] [address] [id number] 23:51:00* Test Item Value Reference Range Interpretation Comme nts FREE T4 (test code = 6230884451) 1.93 ng/dL 0.78-2.2 Lab Interpretation (test cod e = 90449-6) Normal [facility] Notes Date/Time Note Provider Source Richard Lock [facility]2024-10-07 11:53:47 Please review and advise. ZAC 04/23/23 Ninoska Quijano [facility]2024-10-07 09:43:18 Patient is calling again regarding getting lab orders placed. Debbie MonsonOur Lady of Mercy [id number] 09:23:17 Called and scheduled patient for 12/31/23 for IUD removal. Estella LozanoOur Lady of Mercy HospitalDhkqmg7752-93-17 12:39:55 Called pt; left v/m to schedule. Ss 12/21 @ 12:40pm Flori PepperOur Lady of Mercy HospitalGrztac9519-79-98 08:47:49 Nita Schroeder is a 28 year old female is calling to be scheduled for IUD removal. Patient seen on 11/05 for consult and calling to schedule. Please call. Thank you. Patrizia UrbanoOur Lady of Mercy HospitalCcndmy8461-28-04 14:55:24 Called to speak with patient. She states she is still taking the medication - 1.5 tabs (75 +37.5mg) every evening. Dinah Cao RNOur Lady of Mercy HospitalSydiic1803-18-51 09:23:16 Ok we will see what It shows Is she still taking Effexor [facility]2024-03-26 09:00:22 Contacted patient and notified her per provider thyroid labs have been placed. She may have them drawn Mon-Fri 730a-445p. Patient reports she just got off her cycle last week, she is on control and has not been very active since she doesn't feel well. She states she will take an at home UPT. Marjorie Fay LVN 08/12/2023 9:02 AM Marjorie Fay [facility]2024-03-25 16:06:52 I put the order in, has she taken a home UPT? [place] [id number] 15:49:36 Please review and advise [place] [address]-03-25 15:45:26 Nita Schroeder is a 27 year old female Pt called wanting to see if pcp can send lab orders to check her Thyroid levels. Pt states wakes up nauseous, tried all the time, & can't sleep at night. Pt declined apt due to self pay lakeisha. Please advise [phone] (home) Luis KraftOur Lady of Mercy HospitalFmgjbf4669-51-44 08:49:38 Please review and sign if appropriate: [...] Plan: meloxicam 15 mg tablet LEON Quijano [facility]2023-08-23 13:19:56 Podiatry referral placed r/t x ray results [facility]2023-08-22 12:15:00 Patient states she will call her Psych dr to check on lab orders. [facility] Pasha Tobias [facility]
[2024-08-27 09:55] LABS: Absolute Basophils 0.1 K/uL (0-0.5); Absolute Eosinophils 0.1 K/uL (0-0.5); Absolute Lymphocytes (CBC) 1.5 K/uL (0.7-4.9); Absolute Monocytes 0.5 K/uL (0.1-1.3); Absolute Neutrophil 6.1 K/uL (1.8-8.0); Basophils % 0.6 % (0-1.3); Eosinophils % 1.5 % (0-4.4); Hematocrit 38.1 % (36.0-45.0); Hemoglobin 13.7 g/dL (12.0-15.0); Lymphocytes % 18.4 % (15.3-44.8); MCH 32.7 pg (27.0-35.0); MCHC 35.9 g/dL (32.0-36.0); MCV 90.9 fL (80-100); MPV 7.8 fL (7.6-11.3); Monocytes % 6.2 % (3.3-12.3); Neutrophils % 73.3 % (41.7-73.7); Platelets 303 thou/uL (152-406); RBC Red Blood Cell Count 4.19 M/uL (3.86-4.86); Red Cell Distribution Width 13.3 % (12.1-15.2)
[2024-08-27] MEDS ORDERED: ONDANSETRON 4 MG/2 ML VIAL ONE (10:00)
[2024-08-27] MEDS ORDERED: FAMOTIDINE 20 MG/2 ML VIAL IV ONE (10:01)
[2024-08-27] MEDS ORDERED: MORPHINE 4 MG/ML SYR ONE (10:01)
[2024-08-27] MEDS ORDERED: NA CHLORIDE 0.9% 1,000 ML ONE (10:01)
[2024-08-27 10:15] LABS: ALT/SGPT 17 U/L (13-56); Albumin 3.7 g/dL (3.4-5.0); Albumin/Globulin Ratio 1.1 (1.1-1.8); Alkaline Phosphatase 62 U/L (45-117); Anion Gap 6.1 mEq/L (5.0-15.0); BUN Blood Urea Nitrogen 16 mg/dL (7-18); Bicarbonate 25 mEq/L (21-32); Bilirubin Total 0.4 mg/dL (0.2-1.0); Globulin 3.4 g/dL (2.3-3.5); Glomerular Filtration Rate 91 ml/min (=/>90); Glucose Level 104 mg/dL (74-106); Lipase 110 U/L (13-75); Potassium 4.1 mEq/L (3.5-5.1); Protein, Total 7.1 g/dL (6.4-8.2); Sodium Level 139 mEq/L (136-145)
[2024-08-27 10:19] LABS: AST/SGOT < 10 U/L (15-37)
[2024-08-27 10:45] LABS: Specific Gravity 1.027 (1.005-1.030)
[2024-08-27 10:47] LABS: Specific Gravity 1.027 (1.005-1.030); Sqamous Epithelial <5 /HPF (None Seen); Urine Bacteria None Seen /HPF (<20); Urine Bilirubin NEGATIVE (Negative); Urine Blood Negative (Negative); Urine Clarity Turbid (Clear); Urine Color Light-Yellow (Yellow); Urine Culture Reflex Order NOT NEEDED; Urine Glucose NEGATIVE (Negative); Urine Ketones NEGATIVE (Negative); Urine Microscopic Reflex YN ORDER UMIC; Urine Mucus Slight /HPF (None Seen); Urine Nitrite NEGATIVE (Negative); Urine Protein NEGATIVE (Negative); Urine RBC None Seen /HPF (None Seen); Urine Urobilinogen Normal (Normal); Urine WBC <5 /HPF (<5)
--- NOTE | 2024-08-27 11:38 | RAD REPORT ---
EXAMINATION: CT Abdomen Pelvis W Contrast CLINICAL INDICATION: Female, 28 years old. ABD PAIN TECHNIQUE: CT abdomen and pelvis was performed, after the administration of IV contrast, as per [facility]. Axial, sagittal and coronal reconstructions were obtained. One or more of the following dose reduction techniques were used: Automated exposure control, adjustment of the mA and k V according to patient size, and iterative reconstruction. Unless otherwise specified, incidental findings do not require dedicated imaging follow-up. COMPARISON: 08/21/2024 FINDINGS: LOWER CHEST: The visualized lung bases are clear. LIVER: Normal in size. Mildly nodular contour again seen particularly along the left lobe anteriorly. No focal lesion. BILIARY SYSTEM: No suspicious abnormalities. SPLEEN: Normal size. No focal lesion. PANCREAS: No mass, ductal dilation, or nilsa-pancreatic fluid. ADRENALS: Normal; no mass. KIDNEYS: Normal size and contour. No hydronephrosis. URINARY BLADDER: Unremarkable. GASTROINTESTINAL TRACT: No evidence of free air, significant intra-abdominal free fluid, bowel obstru ction or abscess. APPENDIX: Normal appendix. LYMPH NODES: No lymphadenopathy. MUSCULOSKELETAL: No acute or suspicious osseous abnormality. ADDITIONAL FINDINGS: None. IMPRESSION: No acute abnormalities seen in the abdomen or pelvis. Mildly nodular contour of the liver especially along the left lobe, which may relate to early changes of chronic liver disease. Please correlate with liver enzyme profile.
--- NOTE | 2024-08-27 11:54 | EDPHYS ---
Physician Documentation [facility] Name: Penelope Slater Age: 28 yrs Sex: Female : 1995 Arrival Date: 08/27/2024 Time: 09:13 Bed 16 Private MD: ALEX Physician Mio Underwood HPI: 08/27 11:47 This 28 yrs old Female presents to ER via Ambulatory with complaints of Lower parrish Abdominal Pain. 11:47 The patient presents with abdominal pain in the lower abdomen, abdominal distention in parrish the upper abdomen, in the lower abdomen. Onset: The symptoms/episode began/occurred 2 day(s) ago. The symptoms do not radiate. Associated signs and symptoms: Pertinent positives: nausea. The symptoms are described as crampy, dull. Modifying factors: The symptoms are alleviated by nothing, the symptoms are aggravated by nothing. Severity of pain: At its worst the pain was moderate in the emergency department the pain has improved moderately. The patient has experienced similar episodes in the past, several times. 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 - Infectious Disease History:: Denies. - Social history:: Smoking status: Reported history of juuling and/or vaping. ROS: 11:50 Constitutional: Negative for fever, chills, and weight loss, Eyes: Negative for injury, parrish pain, redness, and discharge, ENT: Negative for injury, pain, and discharge, Neck: Negative for injury, pain, and swelling, Cardiovascular: Negative for chest pain, palpitations, and edema, Respiratory: Negative for shortness of breath, cough, wheezing, and pleuritic chest pain, Back: Negative for injury and pain, : Negative for injury, bleeding, discharge, and swelling, MS/Extremity: Negative for injury and deformity, Skin: Negative for injury, rash, and discoloration, Neuro: Negative for headache, weakness, numbness, tingling, and seizure, Psych: Negative for depression, anxiety, suicide ideation, homicidal ideation, and hallucinations, Allergy/Immunology: Negative for hives, rash, and allergies, Endocrine: Negative for neck swelling, polydipsia, polyuria, polyphagia, and marked weight changes, Hematologic/Lymphatic: Negative for swollen nodes, abnormal bleeding, and unusual bruising, 11:50 Abdomen/GI: Positive for abdominal pain, nausea, of the right lower quadrant and left lower quadrant, Exam: 11:50 Constitutional: This is a well developed, well nourished patient who is awake, alert, parrish and in no acute distress. Head/Face: Normocephalic, atraumatic. Eyes: Pupils equal round and reactive to light, extra-ocular motions intact. Lids and lashes normal. Conjunctiva and sclera are non-icteric and not injected. Cornea within normal limits. Periorbital areas with no swelling, redness, or edema. ENT: Nares patent. No nasal discharge, no septal abnormalities noted. Tympanic membranes are normal and external auditory canals are clear. Oropharynx with no redness, swelling, or masses, exudates, or evidence of obstruction, uvula midline. Mucous membranes moist. Neck: Trachea midline, no thyromegaly or masses palpated, and no cervical lymphadenopathy. Supple, full range of motion without nuchal rigidity, or vertebral point tenderness. No Meningismus. Chest/axilla: Normal chest wall appearance and motion. Nontender with no deformity. No lesions are appreciated. Cardiovascular: Regular rate and rhythm with a normal S1 and S2. No gallops, murmurs, or rubs. Normal PMI, no JVD. No pulse deficits. Respiratory: Lungs have equal breath sounds bilaterally, clear to auscultation and percussion. No rales, rhonchi or wheezes noted. No increased work of breathing, no retractions or nasal flaring. Back: No spinal tenderness. No costovertebral tenderness. Full range of motion. Female : Normal external genitalia. Skin: Warm, dry with normal turgor. Normal color with no rashes, no lesions, and no evidence of cellulitis. MS/ Extremity: Pulses equal, no cyanosis. Neurovascular intact. Full, normal range of motion., bilateral aka Neuro: Awake and alert, GCS 15, oriented to person, place, time, and situation. Cranial nerves II-XII grossly intact. Motor strength 5/5 in all extremities. Sensory grossly intact. Cerebellar exam normal. Normal gait. 11:50 Abdomen/GI: Inspection: abdomen appears normal, Bowel sounds: normal, Palpation: mild abdominal tenderness, moderate abdominal tenderness, in the right lower quadrant and left lower quadrant, Liver: no appreciated palpable abnormalities, Hernia: not appreciated, Vital Signs: 09:21 BP 113 / 66; Pulse 71; Resp 16 S; Temp 97.6(TE); Pulse Ox 97% on R/A; Weight 130.63 kg aa5 (R); Height 5 ft. 7 in. (R); 10:10 BP 107 / 60; Pulse 59; Resp 16 S; Pulse Ox 94% on R/A; kc6 09:21 Body Mass Index 45.11 (130.63 kg, 170.18 cm) aa5 MDM: 09:18 Medical Screening Exam initiated parrish 11:51 Differential diagnosis: diverticulitis, Endometriosis, gastritis, non-specific abd parrish pain, pancreatitis, Peritonitis, Pelvic Inflammatory Disease, Ureterolithiasis, urinary tract infection. Data reviewed: vital signs, nurses notes, lab test result(s), radiologic studies, CT scan. Consideration of Admission/Observation Escalation of care including admission/observation considered. I considered the following discharge prescriptions or medication management in the emergency department Medications were administered in the Emergency Department. See MAR. Independent interpretation of the following test(s) in the Emergency Department EKG: See my EKG interpretation above. Test considered but Not performed: Ultrasound no abd usg. Historians other than the Patient: Family Member: family well informed. Care significantly affected by the following chronic conditions: Hypertension, Obesity, depression. Counseling: I had a detailed discussion with the patient and/or guardian regarding the historical points, exam findings, and any diagnostic results supporting the discharge/admit diagnosis, lab results, radiology results, the need for outpatient follow up, for definitive care, a family practitioner, a oil fire specialist. 08/27 09: Order name: CBC with Diff; Complete Time: : [facility] 08/27 08:26 Order name: CMP; Complete Time: 08/27:26 Order name: Lipase; Complete Time: 08/27 09:26 Order name: Test, Urine; Complete Time: 08/27:26 Order name: Urinalysis w/ reflexes; Complete Time: :17 [facility] 08/27 09:26 Order name: CT Abd/Pelvis - IV Contrast Only; Complete Time: 11:46 [facility] 08/27 09:26 Order name: IV Saline Lock; Complete Time: 09:50 [facility] 08/27 09:26 Order name: Labs collected and sent; Complete Time: 09:50 [facility] Administered Medications: 10:10 Drug: Famotidine IVP 20 mg IVP once; dilute with 10 mL 0.9% NaCl; give over 2 minutes kc6 Route: IVP; Site: left antecubital; 11:11 Follow up: Response: No adverse reaction 6 10:10 Drug: Ondansetron IVP 4 mg IVP once; over 2 minutes Route: IVP; Site: left antecubital; kc6 11:11 Follow up: Response: No adverse reaction [facility] 10:10 Drug: morphine IVP or IV 4 mg IVP once over 4 mins Route: IVP; Infused Over: 4 mins; kc6 Site: left antecubital; 11:12 Follow up: Response: No adverse reaction; Pain is decreased; RASS: Alert and Calm (0) [facility] 10:10 Drug: NS 0.9% IV 1000 ml IV at 1 bolus Per protocol; to be given as a bolus over 60 kc6 minutes Route: IV; Rate: 1 bolus; Site: left antecubital; 11:12 Follow up: Response: No adverse reaction; IV Status: Completed infusion; IV Intake: kc6 1000ml Disposition Summary: 08/27/24 11:54 Discharge Ordered Notes: Location: Home parrish Problem: new parrish Symptoms: have improved parrish Condition: Stable parrish Diagnosis - Abdominal tenderness parrish Followup: parrish - With: Private Physician - When: 2 - 3 days - Reason: Recheck today's complaints, Continuance of care, Re-evaluation by your physician Followup: parrish - With: Filipe Chang MD - When: 2 - 3 days - Reason: Recheck today's complaints, Re-evaluation by your physician Discharge Instructions: - Discharge Summary Sheet parrish - Abdominal Pain, Adult parrish - Abdominal Pain, Adult, [id number]-fz-Yphq parrish Forms: - Medication Reconciliation Form parrish - Antibiotic Education parrish - Prescription Opioid Use parrish - Patient Portal Instructions [facility] - Leadership Thank You Letter [facility] Prescriptions: - ondansetron 4 mg Oral Tablet,disintegrating - take 1 tablet ORAL route every 6-8 hours prn nausea; 20 tablet; Refills: 0, [facility] Product Selection Permitted - Pepcid 20 mg Oral tablet - take 1 tablet ORAL route every 12 hours for 21 days; 42 tablet; Refills: 0, parrish Product Selection Permitted - dicyclomine 20 mg Oral tablet - take 1 tablet ORAL route 4 times per day; 28 tablet; Refills: 0, Product parrish Selection Permitted Signatures: Dispatcher [employer] EDMio Raines MD MD cha Calderon, Audri RN RN aa5 Debbie Spicer RN RN kc6 Corrections: (The following items were deleted from the chart) 09: 09:26 CBC+H.LAB.BRZ ordered. EDMS EDMS 09:26 COMPREHENSIVE METABOLIC PANEL+C.LAB.BRZ ordered. EDMS EDMS 09:26 LIPASE+C.LAB.BRZ ordered. EDMS EDMS 09:26 Test, Urine+UC.LAB.BRZ ordered. EDMS EDMS 09:26 Urinalysis+U.LAB.BRZ ordered. EDMS EDMS 09: 09:26 Abdomen Pelvis W Con+CT.RAD.BRZ ordered. EDMS EDMS
--- NOTE | 2024-08-27 11:54 | ER ---
Nurse's Notes [facility] Name: Penelope Slater Age: 28 yrs Sex: Female : 1995 Arrival Date: 08/27/2024 Time: 09:13 Bed 16 Private MD: Diagnosis: Abdominal tenderness Presentation: 08/27 09:21 Chief complaint: Patient states: RLQ and RUQ pain that is worse after eating, pt aa5 reports she was recently seen here for same complaint. 09:21 Coronavirus screen: At this time, the client does not indicate any symptoms associated aa5 with coronavirus-19. Ebola Screen: Patient denies travel to an Ebola-affected area in the 21 days before illness onset. Initial Sepsis Screen: Does the patient meet any 2 criteria? No. Patient's initial sepsis screen is negative. Does the patient have a suspected source of infection? No. Patient's initial sepsis screen is negative. Risk Assessment: Do you want to hurt yourself or someone else? Patient reports no desire to harm self or others. Onset of symptoms was August 2024. 09:21 Acuity: PRATIBHA 3 aa5 09:21 Method Of Arrival: Ambulatory aa5 [employer] DIRECTOR: 09:30 LMP 08/15/2024, unknown aa5 Historical: - Allergies: 09:28 Latex; aa5 09:28 vinegar; aa5 - PMHx: 09:28 depressive disorder; grave's disease; in remission; Hypertension; aa5 - PSHx: 09:28 section; Tonsillectomy; aa5 - Immunization history:: Adult Immunizations unknown. - Infectious Disease History:: Denies. - Social history:: Smoking status: Reported history of juuling and/or vaping. Screenin:10 [facility] ED Fall Risk Assessment (Adult) History of falling in the last 3 months, kc6 including since admission No falls in past 3 months (0 pts) Confusion or Disorientation No (0 pts) Intoxicated or Sedated No (0 pts) Impaired Gait No (0 pts) Mobility Assist Device Used No (0 pt) Altered Elimination No (0 pt) Score/Fall Risk Level 0 - 2 = Low Risk Oriented to surroundings, Maintained a safe environment, Educated pt \T\ family on fall prevention, incl call for assistance when getting out of bed. Abuse screen: Denies threats or abuse. Denies injuries from another. Nutritional screening: No deficits noted. Tuberculosis screening: No symptoms or risk factors identified. Assessment: 10:10 General: Appears in no apparent distress. uncomfortable, well groomed, well developed, kc6 Behavior is cooperative, appropriate for age, crying. Pain: Complains of pain in anterior aspect of right lateral abdomen, right lower quadrant and left lower quadrant Is intermittent. Neuro: Level of Consciousness is awake, alert, obeys commands, Oriented to person, place, time, situation, Appropriate for age. Cardiovascular: Capillary refill < 3 seconds. Respiratory: Airway is patent Trachea midline Respiratory effort is even, unlabored, Respiratory pattern is regular, symmetrical. GI: Abdomen is round non-distended, Bowel sounds present X 4 quads. Abd is soft X 4 quads Abdomen is tender to palpation in anterior aspect of right lateral abdomen, right lower quadrant and left lower quadrant Reports lower abdominal pain, upper abdominal pain, Patient currently denies diarrhea, nausea, vomiting. : No signs and/or symptoms were reported regarding the genitourinary system. EENT: No signs and/or symptoms were reported regarding the EENT system. Derm: No signs and/or symptoms reported regarding the dermatologic system. Skin is intact, is healthy with good turgor, Skin is pink, warm \T\ dry. Musculoskeletal: No signs and/or symptoms reported regarding the musculoskeletal system. Circulation, motion, and sensation intact. Range of motion: intact in all extremities. 11:11 Reassessment: Patient appears in no apparent distress at this time. No changes from kc6 previously documented assessment. Patient and/or family updated on plan of care and expected duration. Pain level reassessed. Patient is alert, oriented x 3, equal unlabored respirations, skin warm/dry/pink. Patient states feeling better. Patient states symptoms have improved. 12:46 Reassessment: Patient appears in no apparent distress at this time. No changes from kc6 previously documented assessment. Patient and/or family updated on plan of care and expected duration. Pain level reassessed. Patient is alert, oriented x 3, equal unlabored respirations, skin warm/dry/pink. Vital Signs: 09:21 BP 113 / 66; Pulse 71; Resp 16 S; Temp 97.6(TE); Pulse Ox 97% on R/A; Weight 130.63 kg aa5 (R); Height 5 ft. 7 in. (R); 10:10 BP 107 / 60; Pulse 59; Resp 16 S; Pulse Ox 94% on R/A; kc6 09:21 Body Mass Index 45.11 (130.63 kg, 170.18 cm) aa5 ED Course: 09:18 Patient arrived in ED. cj3 09:18 Mio Underwood MD is Attending Physician. parrish 09:21 Arm band placed on Patient placed in an exam room, on a stretcher. aa5 09:28 Debbie Spicer, RN is Primary Nurse. kc6 09:30 Triage completed. aa5 09:50 CBC with Diff Sent. em1 09:50 CMP Sent. em1 09:50 Lipase Sent. em1 09:50 Initial lab(s) drawn, by me, sent to lab. Inserted saline lock: 20 gauge in left em1 antecubital area, using aseptic technique. Blood collected. Flushed with 10 mL NS. 10:10 Patient has correct armband on for positive identification. Bed in low position. Call kc6 light in reach. Side rails up X 1. Adult w/ patient. Pulse ox on. NIBP on. Door closed. Noise minimized. Lights dimmed. Warm blanket given. Pillow given. Verbal reassurance given. 11:08 CT Abd/Pelvis - IV Contrast Only In Process Unspecified. EDMS 11:53 Filipe Chang MD is Referral Physician. [facility] 12:58 No provider procedures requiring assistance completed. IV discontinued, intact, kc6 bleeding controlled, No redness/swelling at site. Pressure dressing applied. Administered Medications: 10:10 Drug: Famotidine IVP 20 mg IVP once; dilute with 10 mL 0.9% NaCl; give over 2 minutes kc6 Route: IVP; Site: left antecubital; 11:11 Follow up: Response: No adverse reaction kc6 10:10 Drug: Ondansetron IVP 4 mg IVP once; over 2 minutes Route: IVP; Site: left antecubital; kc6 11:11 Follow up: Response: No adverse reaction kc6 10:10 Drug: morphine IVP or IV 4 mg IVP once over 4 mins Route: IVP; Infused Over: 4 mins; kc6 Site: left antecubital; 11:12 Follow up: Response: No adverse reaction; Pain is decreased; RASS: Alert and Calm (0) kc6 10:10 Drug: NS 0.9% IV 1000 ml IV at 1 bolus Per protocol; to be given as a bolus over 60 kc6 minutes Route: IV; Rate: 1 bolus; Site: left antecubital; 11:12 Follow up: Response: No adverse reaction; IV Status: Completed infusion; IV Intake: kc6 1000ml Medication: 12:58 VIS not applicable for this client. kc6 Intake: 11:12 IV: 1000ml; Total: 1000ml. kc6 Outcome: 11:54 Discharge ordered by MD. senior 12:58 Discharged to home ambulatory, with significant other, kc6 12:58 Condition: improved 12:58 Discharge instructions given to patient, significant other, Instructed on discharge instructions, follow up and referral plans. no drinking with medication, no driving heavy equipment, medication usage, Demonstrated understanding of instructions, follow-up care, medications, Prescriptions given X 3, 12:58 Patient left the ED. kc6 Signatures: Dispatcher [employer] EDMio Raines MD MD cha Martinez, Eric em1 Maria A Odonnell, RN RN aa5 Debbie Spicer RN RN kc6 Sil [place] 3
[2024-08-27 13:12] VITALS: TEMP 97.6
[2024-08-27 13:16] VITALS: BP 107/60; O2SAT 94
== END 2024-08-27 12:58 | disposition home or self-care (01) ==
LOC: ER 09:13
DX: R10.813 Right lower quadrant abdominal tenderness (principal); R10.814 Left lower quadrant abdominal tenderness; R11.0 Nausea
CPT/HCPCS: 36415; 74177; 80053; 81001; 81025; 83690; 85025; 96361; 96374; 96375; 99284; J2405; J7030; Q9967

== ENCOUNTER 2025-01-10 19:09 | Emergency (ER) | payer OTHER ==
--- OUTSIDE RECORDS SUMMARY | 2025-01-10 19:19 | XMS REPORT | Continuity of Care Document ---
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 Lab Main Attending Clinician Unavailabl e Doctor Unassigned, [place] Attending Clinician U navailable MANDA ATKINSON Attending Clinician Unavaila MANDA Kapoor Attending Clinician UnavailLANG Diop Attending Clinician Unavail LANG Caicedo Attending Clinician Unavail Lang Caicedo MD Attending Clinician [phone] [facility] Eeg Attending Clinician Unavailable Mandy Ramirez Attending Clinician [phone] , [facility] Sleep Lab Bed Attending Clinician Unavail Manda Kinsey MD Attending Clinician + [phone] MANDY WAGNER Attending Clinician Unavailable Pcp-Lab Attending Clinician Unavailable Jelly Waters PA-C Attending Clinician [phone] JELLY WATERS Attending Clinician Unavailable ELIZA MEJIA Attending Clinician Unavailable Surface Moraima Conner Attending Clinician [phone], [employer] Attending Clinician Joceline Zuleyma Saba PhD Attending Clinician + [phone] ZULEYMA RIVAS Attending Clinician Unavailab SYDNI Abbott Attending Clinician Unavailable Ozzie Juárez Attending Clinician [phone], [facility] Attending Clinician Unavailable BRENNEN WAGNER Admitting Clinician Unavailable Bárbara Taylor MD Admitting Clinician +- [phone] LANG VIVEROS Admitting Clinician Unavail able Payers Payer Name Policy Type Policy Number Effective Date Expirati on Date Source [facility] STAR [id number] 2022 00:00:00 Problems Condition Name Condition Details Condition Category Status Onset Date Resolution Date Last Treatment Date Treating Clinician Comments Source Thyrotoxic osis Thyrotoxic osis Disease Active 05-20 00:00: 00 [facility] Tachycardi a Tachycardi a Disease Active 05-20 00:00: 00 [facility] Polycystic ovaries Polycystic ovaries Disease Active - 00:00: 00 [facility] Pain Pain Disease Active 2022-05- 00:00: 00 [facility] Right wrist pain Right wrist pain Disease Active 2022-05 2-06 00:00: 00 [facility] Dysplasia of cervix, high grade JEMIMA 2 Dysplasia of cervix, high grade JEMIMA 2 Disease Active 2022-05 00:00: 00 [facility] Severe dysplasia of cervix (JEMIMA III) Severe dysplasia of cervix (JEMIMA III) Disease Active 2022-05 00:00: 00 [facility] Morbid obesity with body mass index of 40.0-49.9 Morbid obesity with body mass index of 40.0-49.9 Disease Active 2023-1 0-30 00:00: 00 [facility] ASCUS with 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 Disease Active 2022-05 0-30 00:00: 00 [facility] Atypical squamous cell changes of undetermin ed significan ce (ASCUS) on vaginal cytology Atypical squamous cell changes of undetermin ed significan ce (ASCUS) on vaginal cytology Disease Active 0 7-05 00:00: 00 [facility] History of HPV infection History of HPV infection Disease Active 0 705 00:00: 00 [facility] Right hip pain Right hip pain Disease Active 0 10-07 00:00: 00 [facility] Right hip pain Right hip pain Disease Active 0 10-07 00:00: 00 [facility] Snoring Snoring Disease Active 0 5 00:00: 00 [facility] Chronic midline thoracic back pain Chronic midline thoracic back pain Disease Active 0 5-19 00:00: 00 [facility] Lumbar pain Lumbar pain Disease Active 0 5-19 00:00: 00 [facility] Herpes zoster without complicati on Herpes zoster without complicati on Disease Active 0 2-13 00:00: 00 [facility] Pulsatile tinnitus of right ear Pulsatile tinnitus of right ear Disease Active 0 2-13 00:00: 00 [facility] BMI 45.0-49.9, adult BMI 45.0-49.9, adult Disease Active 0 2-06 00:00: 00 [facility] Anxiety and depression Anxiety and depression Disease Active 0 2-06 00:00: 00 [facility] Graves disease Graves disease Disease Active 7-12 00:00: 00 [facility] Acute cough Acute cough Disease Resolve d 0 8- 00:00: 00 2023-03-17 00:00:00 2023-03-17 15:14:05 [facility] Bartholin' s cyst Bartholin' s cyst Disease Resolve d 8-29 00:00: 00 2023-03-17 00:00:00 2023-03-17 15:14:32 [facility] Acute cough Acute cough Disease Resolve d 2022-0 8-29 00:00: 00 2023-03-17 00:00:00 2023-03-17 15:14:05 [facility] Nasal congestion Nasal congestion Disease Resolve d 2022-0 8-29 00:00: 00 2023-03-17 00:00:00 2023-03-17 15:14:08 [facility] Cellulitis of other specified site Cellulitis of other specified site Disease Resolve d 2022-0 8-29 00:00: 00 2023-03-17 00:00:00 2023-03-17 15:14:04 [facility] Viral upper respirator y tract infection Viral upper respirator y tract infection Disease Resolve d 2022-0 8-29 00:00: 00 2023-03-17 00:00:00 2023-03-17 15:14:01 [facility] Chest pain, unspecifie d type Chest pain, unspecifie d type Disease Resolve d 2022-0 7-31 00:00: 00 2023-03-17 00:00:00 2023-03-17 15:14:10 [facility] Right foot pain Right foot pain Disease Resolve d 2022-0 7-31 00:00: 00 2023-03-17 00:00:00 2023-03-17 15:14:07 [facility] Cervical cancer screening Cervical cancer screening Disease Resolve d 2022-0 5-31 00:00: 00 2023-03-17 00:00:00 2023-03-17 15:13:58 [facility] Muscle twitching Muscle twitching Disease Resolve d 2022-0 2-13 00:00: 00 2023-03-17 00:00:00 2023-03-17 15:13:53 [facility] Encounter to establish care Encounter to establish care Disease Resolve d 2022-0 2-06 00:00: 00 2023-03-17 00:00:00 2023-03-17 15:14:16 [facility] Encounter to establish care Encounter to establish care Disease Resolve d 2-06 00:00: 00 2023-03-17 00:00:00 2023-03-17 15:14:16 [facility] Disease Resolve d 9-13 00:00: 00 2023-03-17 00:00:00 2023-03-17 15:14:30 [facility] Allergies, Adverse Reactions, Alerts Allergy Name Allergy Type Status Severity Reaction(s) Onset Date Inactive Date Treating Clinician Comments Source LATEX DRUG INGREDI Active Med Hives 2022-05 00:00: 00 [facility] Latex Propensi ty to adverse reaction s Active Hives 2022-05 00:00: 00 [facility] NO KNOWN ALLERGIE S Drug Class Active [facility] Social History Social Habit Start Date Stop Date Quantity Comments Source History SDOH Food Worry [facility] Gender identity [facility] Alcoholic beverage intake 2023-12-31 00:00:00 2023-12-31 00:00:00 Ex-drinker (finding) [facility] History of Social function 2023-11-06 00:00:00 2023-11-06 00:00:00 [facility] Alcohol intake 2023-04-29 00:00:00 2023-04-29 00:00:00 Ex-drinker (finding) [facility] Tobacco use and exposure 2023-03-31 00:00:00 2023-03-31 00:00:00 User of smokeless tobacco [facility] Tobacco Comment 2023-03-31 00:00:00 2023-03-31 00:00:00 Smoke weed daily [facility] Exposure to SARS-CoV-2 (event) 2022-11-09 00:00:00 2022-11-19 20:17:00 Not sure [facility] History SDOH Alcohol Frequency 2022-10-07 00:00:00 2022-10-07 00:00:00 1 [facility] History SDOH Alcohol Std Drinks 2022-10-07 00:00:00 2022-10-07 00:00:00 0 [facility] History SDOH Alcohol Binge 2022-10-07 00:00:00 2022-10-07 00:00:00 1 [facility] History SDOH Financial 2022-10-07 00:00:00 2022-10-07 00:00:00 3 [facility] History SDOH Food Scarcity 2022-10-07 00:00:00 2022-10-07 00:00:00 2 [facility] History SDOH Transport Med 2022-10-07 00:00:00 2022-10-07 00:00:00 2 [facility] History SDOH Transport Non-Med 2022-10-07 00:00:00 2022-10-07 00:00:00 2 [facility] History SDOH Housing Unable to Pay 2022-10-07 00:00:00 2022-10-07 00:00:00 1 [facility] History SDOH Housing Places Lived 2022-10-07 00:00:00 2022-10-07 00:00:00 2 [facility] History SDOH Housing Homeless Last Year 2022-10-07 00:00:00 2022-10-07 00:00:00 2 [facility] Sex assigned at 1995 00:00:00 1995 00:00:00 [facility] Smoking Status Start Date Stop Date Source Never smoked tobacco [facility] Medications Ordered Medication Name Filled Medication Name Start Date Stop Date Current Medication? Ordering Clinician Indication Dosage Frequency Signature (SIG) Comments Components Source ondansetron 8 mg disintegrat ing tablet 01-05 00:00: 00 Yes 1mg Richard Arcos metronidazo le 500 mg tablet 01-04 00:00: 00 Yes 1mg Richard Arcos fluoxetine 20 mg tablet 12-30 00:00: 00 Yes 1mg Richard Arcos Unisom (doxylamine ) 25 mg tablet 12-28 00:00: 00 Yes 1mg Richard Arcos Diclegis 10 mg-10 mg tablet,juan yed release 12-28 00:00: 00 Yes 2mg Richard Arcos Effexor XR 75 mg capsule,ext ended release 2024-0 8-12 00:00: 00 Yes 1mg Richard Arcos Effexor XR 37.5 mg capsule,ext ended release 2024-0 8-12 00:00: 00 Yes 1mg Richard Arcos sertraline 50 mg tablet 2024-0 8-11 00:00: 00 Yes 1mg Richard Arcos sertraline 25 mg tablet 2024-0 8-06 00:00: 00 Yes 1mg Richard Arcos Effexor XR 37.5 mg capsule,ext ended release 2024-0 8-06 00:00: 00 Yes 1mg Richard Arcos buspirone 10 mg tablet 2024-0 7-22 00:00: 00 Yes 1mg Richard Arcos trazodone 100 mg tablet 2024-0 7- 00:00: 00 Yes 1mg Richard Arcos Effexor XR 75 mg capsule,ext ended release 2024-0 7-22 00:00: 00 Yes 1mg Richard Arcos Effexor XR 37.5 mg capsule,ext ended release 2024-0 7- 00:00: 00 Yes 1mg Richard Arcos pantoprazol e 40 mg tablet,juan yed release 2024-0 7-11 00:00: 00 Yes 1mg Richard Arcos dicyclomine 20 mg tablet 2024-0 6-04 00:00: 00 Yes 1mg Richard Arcos famotidine 20 mg tablet 2024-0 6-04 00:00: 00 Yes 1mg Richard Arcos ondansetron 8 mg disintegrat ing tablet 2024-0 6-04 00:00: 00 Yes 1mg Richard Arcos buspirone 10 mg tablet 2024-0 5-27 00:00: 00 Yes 1mg Richard Arcos trazodone 100 mg tablet 2024-0 5-27 00:00: 00 Yes 1mg Richard Arcos Effexor XR 75 mg capsule,ext ended release 2024-0 5-27 00:00: 00 Yes 1mg Richard Arcos Effexor XR 37.5 mg capsule,ext ended release 2024-0 5-27 00:00: 00 Yes 1mg Richard Arcos dicyclomine 20 mg tablet 2024-0 4-02 00:00: 00 Yes 1mg Richard Arcos ondansetron 8 mg disintegrat ing tablet 2024-0 4- 00:00: 00 Yes 1mg Richard Arcos buspirone 10 mg tablet 2024-0 3- 00:00: 00 Yes 1mg Richard Arcos trazodone 100 mg tablet 2024-0 3-31 00:00: 00 Yes 1mg Richard Arcos Effexor XR 75 mg capsule,ext ended release 2024-0 3- 00:00: 00 Yes 1mg Richard Arcos Effexor XR 37.5 mg capsule,ext ended release 2024-0 3- 00:00: 00 Yes 1mg Richard Arcos buspirone 10 mg tablet 2024-0 3- 00:00: 00 Yes 1mg Richard Arcos trazodone 100 mg tablet 2024-0 3- 00:00: 00 Yes 1mg Richard Arcos Effexor XR 75 mg capsule,ext ended release 2024-0 3-03 00:00: 00 Yes 1mg Richard Arcos Effexor XR 37.5 mg capsule,ext ended release 2024-0 3-03 00:00: 00 Yes 1mg Richard Arcos buspirone 10 mg tablet 2024-0 2-03 00:00: 00 Yes 1mg Richard Arcos trazodone 100 mg tablet 2024-0 2-03 00:00: 00 Yes 1mg Richard Arcos Effexor XR 75 mg capsule,ext ended release 5-0 2-03 00:00: 00 Yes 1mg Richard Arcos Effexor XR 37.5 mg capsule,ext ended release 2024-0 2-03 00:00: 00 Yes 1mg Richard Arcos buspirone 10 mg tablet 2023-1 2-20 00:00: 00 Yes 1mg Richard Arcos trazodone 100 mg tablet 2023-1 2-20 00:00: 00 Yes 1mg Richard Arcos Effexor XR 75 mg capsule,ext ended release 2023-1 2-20 00:00: 00 Yes 1mg Richard Arcos Effexor XR 37.5 mg capsule,ext ended release 2023-1 2-20 00:00: 00 Yes 1mg Richard Arcos hydroxyzine pamoate 25 mg capsule 2023-05 2-20 00:00: 00 Yes 1mg Richard Arcos buspirone 10 mg tablet 2023-05 1- 00:00: 00 Yes 1mg Richard Arcos trazodone 100 mg tablet 2023-05- 00:00: 00 Yes 1mg Richard Arcos Effexor XR 75 mg capsule,ext ended release 2023-05- 00:00: 00 Yes 1mg Richard Arcos Effexor XR 37.5 mg capsule,ext ended release 2023-05 00:00: 00 Yes 1mg Richard Arcos hydroxyzine pamoate 25 mg capsule 2023-05 00:00: 00 Yes 1mg Richard Arcos buspirone [...] Effexor XR 75 mg capsule,ext ended release 8-08 00:00: 00 Yes 1mg Richard Arcos Effexor XR 37.5 mg capsule,ext ended release 2024-0 8-08 00:00: 00 Yes 1mg Richard Arcos hydroxyzine pamoate 25 mg capsule 4-0 8-08 00:00: 00 Yes 1mg Richard Arcos Effexor XR 75 mg capsule,ext ended release 2024-0 7-11 00:00: 00 Yes 1mg Richard Arcos Effexor XR 37.5 mg capsule,ext ended release 2024-0 7-11 00:00: 00 Yes 1mg Richard Carrillo [...] 1mg Richard Arcos MELOXICAM 15 mg tablet 2023-0 2-19 00:00: 00 -20 00:00 :00 No [id number] 15mg TAKE 1 TABLET BY MOUTH ONCE DAILY NEEDED FOR PAIN (WRIST PAIN). [facility] TAKE 1 CAPSULE BY MOUTH EVERY DAY WITH FOOD 0 -22 00:00: 00 Yes Richard Arcos TAKE 1 CAPSULE TWICE DAILY. 0 1-22 00:00: 00 - 00:00 :00 No 25 Richard Arcos TAKE 1 TABLET BY MOUTH ONCE DAILY 06-09 00:00: 00 09-24 00:00 :00 No 375 Richard Arcos tirzepatide (MOUNJARO) 2.5 mg/0.5 mL PnIj 2022-05 00:00: 00 11-05 00:00 :00 No [id number] 2.5mg inject 2.5 mg under the skin weekly. [facility] tirzepatide (MOUNJARO) 5 mg/0.5 mL PnIj 2022-05 00:00: 00 11-05 00:00 :00 No [id number] 5mg inject 5 mg under the skin weekly. [facility] levonorgest reL (MIRENA) 20 mcg/24 hours (8 yrs) 52 mg IUD 2022-05 10:48: 28 Yes as directed [facility] ergocalcife rol, vitamin D2, (VITAMIN D ORAL) 2022-05 10:48: 28 Yes Take by mouth daily. [facility] tirzepatide (MOUNJARO) 2.5 mg/0.5 mL Ij 2022-05 00:00: 00 11-05 00:00 :00 No [id number] 2.5mg inject 2.5 mg under the skin weekly. [facility] TAKE 1 TABLET BY MOUTH ONCE DAILY NEEDED FOR PAIN (WRIST PAIN). 2022-05 00:00: 00 Yes Richard Arcos meloxicam 15 mg tablet 2022-05 00:00: 00 07-07 00:00 :00 No [id number] 9100 15mg Take 1 tablet by mouth once daily as needed for Pain (wrist pain). [facility] TAKE 1 CAPSULE BY MOUTH EVERY DAY 2022-05 00:00: 00 Yes Richard Arcos HYDROXYZINE PAMOATE 25 MG 2022-05 00:00: 00 Yes Richard Arcos TAKE 1 TABLET BY MOUTH ONCE DAILY 2022-05 00:00: 00 09-24 00:00 :00 No 375 Richard Arcos TAKE 1 CAPSULE TWICE DAILY. 2022-05 00:00: 00 09-24 00:00 :00 No 25 Richard Arcos TAKE 1 CAPSULE ONCE DAILY WITH FOOD. 2022-05 00:00: 00 09-24 00:00 :00 No 75 Richard Arcos lactated ringers IV infusion 1,000 mL 2022-05 16:30: 00 Yes 1000mL at 75 mL/hr, 1,000 mL, IV Infusion, CONTINUOUS , Starting on Fri04/07/23 at 1030, Until Discontinu ed, Routine, PACU [facility] HYDROcodone -acetaminop hen (NORCO) 10-325 mg tablet 1 tablet 2022-05 16:22: 30 Yes 1{tbl} 1 tablet, Oral, PRN, 1 dose, Starting on Fri04/07/23 at 1022, Until Discontinu ed, Routine, Pain (scale 7-10), DSU Recovery [facility] HYDROcodone -acetaminop hen (NORCO 5) 5-325 mg tablet 1 tablet 2022-05 16:22: 30 Yes 1{tbl} 1 tablet, Oral, PRN, 1 dose, Starting on Fri04/07/23 at 1022, Until Discontinu ed, Routine, Pain (scale 4-6), DSU Recovery [facility] ibuprofen (IBU) tablet 800 mg 2022-05 16:22: 30 Yes 800mg 800 mg, Oral, PRN, 1 dose, Starting on Fri04/07/23 at 1022, Until Discontinu ed, Routine, Pain (scale 1-3), DSU Recovery [facility] FENTanyl PF (SUBLIMAZE (PF)) injection 25 mcg 2022-05 16:22: 23 Yes 25ug 25 mcg, Slow IV Push, Q5MIN PRN, 4 doses, Starting on Fri04/07/23 at 1022, Until Discontinu ed, Routine, Pain (scale 4-6), PACU [facility] HYDROmorphO ne (DILAUDID) injection 0.2 mg 2022-05 16:22: 23 Yes .2mg 0.2 mg, Slow IV Push, Q5MIN PRN, 10 doses, Starting on Fri04/07/23 at 1022, Until Discontinu ed, Routine, Pain (scale 7-10), PACU
Us e approved by (Faculty): PACU USE -ANESTHESI A SERVICE-HY DROMORPHON E INJECTIONS [facility] ondansetron (ZOFRAN (PF)) injection 4 mg 2022-05 16:22: 23 04-07 16:26 :00 No 4mg 4 mg, Slow IV Push, PRN, 1 dose, Starting on Fri04/07/23 at 1022, Until Fri04/07/23 at 1026, Routine, Nausea and Vomiting (N/V), PACU [facility] ferric subsulfate (MONSEL'S) solution 2022-05 15:37: 00 04-07 16:01 :59 No PRN, Starting on Fri04/07/23 at 0937, Until Fri04/07/23 at 1001, Routine, Intra-op [facility] iodine strong (LUGOL'S) (LUGOL'S SOLUTION) 5 % solution 2022-05 15:29: 00 Yes PRN, Starting on Fri04/07/23 at 0929, Until Discontinu ed, Routine, Intra-op [facility] lidocaine-e pinephrine (XYLOCAINE WITH EPINEPHRINE ) 1 %-1:100,000 injection 2022-05 15:29: 00 04-07 16:01 :59 No PRN, Starting on Fri04/07/23 at 0929, Until Fri04/07/23 at 1001, Routine, Intra-op [facility] sodium chloride 0.9 % irrigation solution 2022-05 15:28: 00 04-07 16:01 :59 No PRN, Starting on Fri04/07/23 at 0928, Until Fri04/07/23 at 1001, Intra-op [facility] lactated ringers IV infusion 1,000 mL 2022-05 13:45: 00 04-07 13:52 :00 No 1000mL at 42 mL/hr, 1,000 mL, IV Infusion, ONCE, 1 dose, On Fri04/07/23 at 0745, Routine, DSU Pre-op [facility] levonorgest reL (MIRENA) 20 mcg/24 hours (8 yrs) 52 mg IUD 2022-05 11:55: 20 Yes as directed [facility] ergocalcife rol, vitamin D2, (VITAMIN D ORAL) 2022-05 11:55: 20 Yes Take by mouth daily. [facility] HYDROCODONE BITARTRATE/ ACETAMINOPH E N 5-325 MG TABS 2022-05 00:00: 00 Yes Richard Arcos HYDROcodone -acetaminop hen 5-325 mg tablet 2022-05 00:00: 00 04-15 05:59 :00 No [id number] 1{tbl} Take 1 tablet by mouth every 6 (six) hours as needed for Pain (scale 4-6) or Pain (scale 7-10) for up to 7 days. Indication s: acute pain [facility] ergocalcife rol, vitamin D2, (VITAMIN D ORAL) 2022-05 11:11: 42 Yes Take by mouth daily. [facility] levonorgest reL (MIRENA) 20 mcg/24 hours (8 yrs) 52 mg IUD 2022-05 11:11: 42 Yes as directed [facility] VENLAFAXINE HCL ER 37.5 MG CAPSULE, EXT RELEASE 24 HR 2022-05 00:00: 00 Yes Richard Arcos hydrOXYzine 25 mg capsule 2022-05 00:00: 00 Yes 25mg Take 1 capsule by mouth at bedtime. [facility] VENLAFAXINE HYDROCHLORI DE ER 37.5 MG CP24 2022-05 00:00: 00 Yes Richard Arcos TAKE 1 CAPSULE TWICE DAILY. 2022-05 00:00: 00 09-24 00:00 :00 No 25 Richard Arcos TAKE 1 TABLET BY MOUTH ONCE DAILY 2022-05 00:00: 00 09-24 00:00 :00 No 375 Richard rAcos TAKE 1 CAPSULE ONCE DAILY WITH FOOD. 2022-05 00:00: 00 09-24 00:00 :00 No 75 Richard Arcos venlafaxine XR 37.5 mg 24 hr capsule 2022-05- 00:00: 00 03-20 00:00 :00 No 37.5mg Take 1 capsule by mouth in the morning. [facility] VENLAFAXINE HCL ER 37.5 MG [...] 01-14 00:00: 00 01-22 04:59 :00 No [id number] 1{tbl} Take 1 tablet by mouth in the morning and 1 tablet in the evening. Do all this for 7 days. [facility] TIZANIDINE HCL 2 MG TABS 01-07 00:00: 00 Yes Richard Arcos tiZANidine 2 mg capsule 01-07 00:00: 00 11-05 00:00 :00 No [id number] 2mg Take 1 capsule by mouth in the morning and 1 capsule at noon and 1 capsule in the evening. [facility] TAKE 1 CAPSULE ONCE DAILY WITH FOOD. 12-18 00:00: 00 09-24 00:00 :00 No 75 Richard Arcos TAKE 1 CAPSULE TWICE DAILY. 12-18 00:00: 00 09-24 00:00 :00 No 25 Richard Arcos TAKE 1 TABLET BY MOUTH ONCE DAILY 12-18 00:00: 00 09-24 00:00 :00 No 375 [...] 10-04 00:00: 00 01-07 00:00 :00 No [id number] 25mg Take 1 tablet by mouth in the morning and 1 tablet at noon and 1 tablet in the evening. Take with meals. [facility] TAKE 1 TABLET TWICE DAILY. 09-30 00:00: 00 09-24 00:00 :00 No 1 Richard Arcos TAKE 1 TABLET BY MOUTH ONCE DAILY 09-30 00:00: 00 09-24 00:00 :00 No 375 Richard Arcos TAKE 1 CAPSULE BY MOUTH ONCE DAILY WITH FOOD 09-30 00:00: 00 09-24 00:00 :00 No Richard Arcos cloNIDine 0.1 mg tablet 09-30 00:00: 00 01-07 00:00 :00 No .1mg Take 1 tablet by mouth in the morning and 1 tablet in the evening. [facility] VENLAFAXINE HCL ER 37.5 MG TABLET, EXTENDED RELEASE 24 HR 09-17 00:00: 00 Yes Richard Arcos TAKE 1 TABLET BY MOUTH ONCE DAILY 09-16 00:00: 00 09-24 00:00 :00 No 375 Richard Arcos levonorgest reL (MIRENA) 20 mcg/24 hours (8 yrs) 52 mg IUD 09-11 10:57: 03 Yes as directed [facility] Venlafaxine 37.5 mg TR24 09-02 00:00: 00 Yes 1{tbl} Take 1 tablet by mouth in the morning. [facility] hydrOXYzine 10 mg tablet 09-02 00:00: 00 11-05 00:00 :00 No 25mg Take 2.5 tablets by mouth at bedtime. [facility] TAKE 1 CAPSULE ONCE DAILY WITH FOOD. 09-02 00:00: 00 09-24 00:00 :00 No 75 Richard Arcos TAKE 1 TABLET TWICE DAILY NEEDED. 09-02 00:00: 00 09-24 00:00 :00 No 10 Richard Arcos TAKE 1 TABLET BY MOUTH ONCE DAILY 09-02 00:00: 00 09-24 00:00 :00 No 375 Richard Arcos TAKE 1 CAPSULE ONCE DAILY WITH FOOD. - 00:00: 00 09-24 00:00 :00 No 75 Richard Arcos TAKE 1 CAPSULE 3 TIMES DAILY NEEDED FOR ANXIETY. - 00:00: 00 09-24 00:00 :00 No 25 Richard Arcos HYDROXYZINE PAMOATE 25 MG - 00:00: 00 09-24 00:00 :00 No Richard Arcos TAKE 1 TABLET TWICE DAILY NEEDED. -20 00:00: 00 09-24 00:00 :00 No 10 [...] TABS 07-01 00:00: 00 09-24 00:00 :00 Lizbet Arcos TAKE 1 CAPSULE BY MOUTH IN THE MORNING THEN 1 CAPSULE AT NOON AND 1 CAPSULE IN THE EVENING 07-01 00:00: 00 09-24 00:00 :00 Lizbet Arcos gabapentin 100 mg capsule 07-01 00:00: 00 10-04 00:00 :00 No [id number] 100mg Take 1 capsule by mouth in the morning and 1 capsule at noon and 1 capsule in the evening. [facility] valACYclovi r 1 gram tablet 07-01 00:00: 00 07-09 05:59 :00 No [id number] 1g Take 1 tablet by mouth in the morning and 1 tablet at noon and 1 tablet in the evening. Do all this for 7 days. [facility] metoprolol succinate XL 25 mg 24 hr tablet 06-24 15:18: 43 06-24 00:00 :00 No 1 tablet [facility] metformin ER 500 mg 24 hr tablet 06-24 15:18: 31 06-24 00:00 :00 No 1 tablet with evening meal [facility] citalopram 40 mg tablet 2 15:18: 21 06-24 00:00 :00 No 1 tablet [facility] levonorgest reL (MIRENA) 20 mcg/24 hours (8 yrs) 52 mg IUD 06-24 15:12: 55 Yes as directed [facility] busPIRone 5 mg tablet 05-29 00:00: 00 10-04 00:00 :00 No 5mg Take 1 tablet by mouth 2 (two) times daily as needed. [facility] ESCITALOPRA M OXALATE 20 MG TABS 2021-05 00:00: 00 09-24 00:00 :00 No Richard Arcos TAKE 1 TABLET BY MOUTH EVERY 8 HOURS NEEDED FOR PAIN 2021-05 00:00: 00 09-24 00:00 :00 No Richard Arcos CHLORHEXIDI NE GLUCONATE 0.12 % SOLN [...] 11-13 00:00: 00 06-24 00:00 :00 No [id number] 50ug Take 1 tablet by mouth every morning. [facility] Blood Pressure Monitor (BLOOD PRESSURE KIT) Kit 08-21 00:00: 00 Yes [id number] Use as directed [facility] Blood Pressure Monitor (BLOOD PRESSURE KIT) Kit 08-21 00:00: 00 04-01 00:00 :00 No [id number] Use as directed [facility] Vital Signs Vital Name Observation Time Observation Value Comments S ource Systolic blood pressure 2023-12-31 15:28:00 110 mm[Hg] [facility] Diastolic blood pressure 2023-12-31 15:28:00 68 mm[Hg] [facility] Heart rate 2023-12-31 15:28:00 84 /min [facility] Body temperature 2023-12-31 15:28:00 36.56 Elena [facility] Respiratory rate 2023-12-31 15:28:00 17 /min [facility] Body height 2023-12-31 15:28:00 170.2 cm [facility] Body weight 2023-12-31 15:28:00 133.675 kg [facility] BMI 2023-12-31 15:28:00 46.16 kg/m2 [facility] Systolic blood pressure 2023-11-06 12:45:00 109 mm[Hg] [facility] Diastolic blood pressure 2023-11-06 12:45:00 63 mm[Hg] [facility] Heart rate 2023-11-06 12:45:00 84 /min [facility] 2023-11-06 12:45:00 36.17 Elena [facility] Respiratory rate 2023-11-06 12:45:00 18 /min [facility] Body height 2023-11-06 12:45:00 170.2 cm [facility] weight 2023-11-06 12:45:00 132.178 kg [facility] BMI 2023-11-06 12:45:00 45.64 kg/m2 Univ [facility] Systolic blood pressure 2023-05-06 16:15:00 101 mm[Hg] [facility] Diastolic blood pressure 2023-05-06 16:15:00 69 mm[Hg] [facility] Heart rate 2023-05-06 16:15:00 73 /min [facility] Body temperature 2023-05-06 16:15:00 36.28 Elena [facility] Body height 2023-05-06 16:15:00 170.2 cm [facility] Body weight 2023-05-06 16:15:00 130.046 kg [facility] BMI 2023-05-06 16:15:00 44.90 kg/m2 [facility] Systolic blood pressure 2023-04-29 16:47:00 110 mm[Hg] [facility] Diastolic blood pressure 2023-04-29 16:47:00 61 mm[Hg] [facility] Heart rate 2023-04-29 16:47:00 76 /min Unive [facility] Respiratory rate 2023-04-29 16:47:00 18 /min [facility] Body height 2023-04-29 16:47:00 170.2 cm [facility] Body weight 2023-04-29 16:47:00 127.914 kg [facility] BMI 2023-04-29 16:47:00 44.17 kg/m2 [facility] Systolic blood pressure 2023-04-23 19:51:00 117 mm[Hg] [facility] o [facility] Diastolic blood pressure 2023-04-23 19:51:00 79 mm[Hg] [facility] Heart rate 2023-04-23 19:51:00 81 /min [facility]ive [facility] Body height 2023-04-23 19:51:00 170.2 cm [facility] Body weight 2023-04-23 19:51:00 127.506 kg [facility] BMI 2023-04-23 19:51:00 44.03 kg/m2 [facility] Oxygen saturation in Arterial blood by Pulse oximetry 2023-04-23 19:51:00 99 /min [facility] Heart rate 2023-04-07 16:54:00 71 /min Unive [facility] Oxygen saturation in Arterial blood by Pulse oximetry 2023-04-07 16:54:00 92 /min [facility] Systolic blood pressure 2023-04-07 16:53:00 115 mm[Hg] [facility] Diastolic blood pressure 2023-04-07 16:53:00 91 mm[Hg] [facility] Respiratory rate 2023-04-07 16:53:00 17 /min [facility] Body temperature 2023-04-07 16:03:00 36.44 Elena [facility] Body height 2023-03-31 20:00:00 170.2 cm [facility] Body weight 2023-03-31 20:00:00 128.822 kg [facility] BMI 2023-03-31 20:00:00 44.48 kg/m2 [facility] Systolic blood pressure 2023-04-07 13:48:00 110 mm[Hg] [facility] Diastolic blood pressure 2023-04-07 13:48:00 75 mm[Hg] [facility] Heart rate 2023-04-07 13:48:00 75 /[facility] Body temperature 2023-04-07 13:48:00 36.67 Elena [facility] Respiratory rate 2023-04-07 13:48:00 17 /min [facility] Oxygen saturation in Arterial blood by Pulse oximetry 2023-04-07 13:48:00 100 /min [facility] Body height 2023-03-31 20:00:00 170.2 cm [facility] Body weight 2023-03-31 20:00:00 128.822 kg [facility] BMI 2023-03-31 20:00:00 44.48 kg/m2 [facility] Systolic blood pressure 2023-04-01 17:04:00 128 mm[Hg] [facility] Diastolic blood pressure 2023-04-01 17:04:00 83 mm[Hg] [facility] Heart rate 2023-04-01 17:04:00 65 /min Unive [facility] Body temperature 2023-04-01 17:04:00 36.61 Elena [facility] Respiratory rate 2023-04-01 17:04:00 16 /min [facility] Body height 2023-04-01 17:04:00 170.2 cm [facility] Body weight 2023-04-01 17:04:00 129.23 kg [facility] BMI 2023-04-01 17:04:00 44.62 kg/m2 [facility] Oxygen saturation in Arterial blood by Pulse oximetry 2023-04-01 17:04:00 97 /min [facility] Systolic blood pressure 2023-03-20 14:56:00 133 mm[Hg] [facility] Diastolic blood pressure 2023-03-20 14:56:00 59 mm[Hg] [facility] Heart rate 2023-03-20 14:56:00 64 /min Unive [facility] Body temperature 2023-03-20 14:56:00 36.72 Elena [facility] Respiratory rate 2023-03-20 14:56:00 16 /min [facility] Body height 2023-03-20 14:56:00 170.2 cm [facility] Body weight 2023-03-20 14:56:00 129.91 kg [facility] BMI 2023-03-20 14:56:00 44.86 kg/m2 [facility] Oxygen saturation in Arterial blood by Pulse oximetry 2023-03-20 14:56:00 97 /min [facility] Systolic blood pressure 2023-03-17 19:52:00 128 mm[Hg] [facility] Diastolic blood pressure 2023-03-17 19:52:00 63 mm[Hg] [facility] Heart rate 2023-03-17 19:52:00 78 /min Unive [facility] Body temperature 2023-03-17 19:52:00 36.39 Elena [facility] Respiratory rate 2023-03-17 19:52:00 17 /min [facility] Body height 2023-03-17 19:52:00 170.2 cm [facility] Body weight 2023-03-17 19:52:00 129.275 kg [facility] BMI 2023-03-17 19:52:00 44.64 kg/m2 [facility] Systolic blood pressure 2023-02-10 15:47:00 113 mm[Hg] [facility] Diastolic blood pressure 2023-02-10 15:47:00 78 mm[Hg] [facility] Heart rate 2023-02-10 15:47:00 66 /min Unive [facility] Respiratory rate 2023-02-10 15:47:00 18 /min [facility] Body height 2023-02-10 15:47:00 170.2 cm [facility] Body weight 2023-02-10 15:47:00 128.277 kg [facility] BMI 2023-02-10 15:47:00 44.29 kg/m2 [facility] Oxygen saturation in Arterial blood by Pulse oximetry 2023-02-10 15:47:00 99 /min [facility] Systolic blood pressure 2023-01-14 14:57:00 107 mm[Hg] [facility] Diastolic blood pressure 2023-01-14 14:57:00 73 mm[Hg] [facility] Heart rate 2023-01-14 14:57:00 98 /min Unive [facility] Body height 2023-01-14 14:57:00 170.2 cm [facility] Body weight 2023-01-14 14:57:00 127.461 kg [facility] BMI 2023-01-14 14:57:00 44.01 kg/m2 [facility] Oxygen saturation in Arterial blood by Pulse oximetry 2023-01-14 14:57:00 100 /min [facility] Systolic blood pressure 2023-01-07 16:25:00 117 mm[Hg] [facility] Diastolic blood pressure 2023-01-07 16:25:00 71 mm[Hg] [facility] Heart rate 2023-01-07 16:25:00 65 /min Unive [facility] Body height 2023-01-07 16:25:00 170.2 cm [facility] Body weight 2023-01-07 16:25:00 127.007 kg [facility] BMI 2023-01-07 16:25:00 43.85 kg/m2 [facility] Oxygen saturation in Arterial blood by Pulse oximetry 2023-01-07 16:25:00 98 /min [facility] Systolic blood pressure 2022-12-16 18:26:00 106 mm[Hg] [facility] Diastolic blood pressure 2022-12-16 18:26:00 74 mm[Hg] [facility] Heart rate 2022-12-16 18:26:00 75 /min Unive [facility] Body height 2022-12-16 18:26:00 170.2 cm Univ [facility] Body weight 2022-12-16 18:26:00 128.368 kg [facility] BMI 2022-12-16 18:26:00 44.32 kg/m2 [facility] Oxygen saturation in Arterial blood by Pulse oximetry 2022-12-16 18:26:00 98 /min [facility] Systolic blood pressure 2022-11-20 16:50:00 122 mm[Hg] [facility] Diastolic blood pressure 2022-11-20 16:50:00 86 mm[Hg] [facility] Heart rate 2022-11-20 16:49:00 81 /min [facility] Body height 2022-11-20 16:49:00 170.2 cm [facility] Body weight 2022-11-20 16:49:00 130.182 kg Univ [facility] BMI 2022-11-20 16:49:00 44.95 kg/m2 [facility] Oxygen saturation in Arterial blood by Pulse oximetry 2022-11-20 16:49:00 98 /min [facility] Systolic blood pressure 2022-10-30 16:30:00 103 mm[Hg] [facility] Diastolic blood pressure 2022-10-30 16:30:00 71 mm[Hg] [facility] Heart rate 2022-10-30 16:20:00 72 /min Unive [facility] Body temperature 2022-10-30 16:20:00 36.67 Elena [facility] Respiratory rate 2022-10-30 16:20:00 18 /min [facility] Body height 2022-10-30 16:20:00 170.2 cm [facility] Body weight 2022-10-30 16:20:00 130.999 kg [facility] BMI 2022-10-30 16:20:00 45.23 kg/m2 [facility] Oxygen saturation in Arterial blood by Pulse oximetry 2022-10-30 16:20:00 97 /min [facility] Systolic blood pressure 2022-10-16 13:14:00 100 mm[Hg] [facility] Diastolic blood pressure 2022-10-16 13:14:00 70 mm[Hg] [facility] Heart rate 2022-10-16 13:14:00 75 /min Unive [facility] Body temperature 2022-10-16 13:14:00 36.78 Elena [facility] Body height 2022-10-16 13:14:00 170.2 cm [facility] Body weight 2022-10-16 13:14:00 133.358 kg [facility] BMI 2022-10-16 13:14:00 46.05 kg/m2 [facility] Oxygen saturation in Arterial blood by Pulse oximetry 2022-10-16 13:14:00 99 /min [facility] Systolic blood pressure 2022-10-07 16:29:00 103 mm[Hg] [facility] Diastolic blood pressure 2022-10-07 16:29:00 81 mm[Hg] [facility] Heart rate 2022-10-07 16:29:00 70 /min Unive [facility] Body temperature 2022-10-07 16:29:00 36.83 Elena [facility] Respiratory rate 2022-10-07 16:29:00 20 /min [facility] Body height 2022-10-07 16:29:00 173.7 cm [facility] Body weight 2022-10-07 16:29:00 134.401 kg [facility] BMI 2022-10-07 16:29:00 44.53 kg/m2 [facility] Oxygen saturation in Arterial blood by Pulse oximetry 2022-10-07 16:29:00 100 /min [facility] Systolic blood pressure 2022-10-04 18:57:00 98 mm[Hg] [facility] Diastolic blood pressure 2022-10-04 18:57:00 78 mm[Hg] [facility] Heart rate 2022-10-04 18:56:00 77 /min Unive [facility] Body temperature 2022-10-04 18:56:00 37 Elena [facility] Body height 2022-10-04 18:56:00 170.2 cm [facility] Body weight 2022-10-04 18:56:00 133.811 kg [facility] BMI 2022-10-04 18:56:00 46.20 kg/m2 [facility] Systolic blood pressure 2022-09-11 15:46:00 112 mm[Hg] [facility] Diastolic blood pressure 2022-09-11 15:46:00 79 mm[Hg] [facility] Heart rate 2022-09-11 15:46:00 65 /min [facility] Body temperature 2022-09-11 15:46:00 36.17 Elena [facility] Respiratory rate 2022-09-11 15:46:00 18 /min [facility] Body height 2022-09-11 15:46:00 170.2 cm [facility] Body weight 2022-09-11 15:46:00 134.265 kg [facility] BMI 2022-09-11 15:46:00 46.36 kg/m2 [facility] Oxygen saturation in Arterial blood by Pulse oximetry 2022-09-11 15:46:00 98 /min r/a [facility] Systolic blood pressure 2022-07-01 21:35:00 107 mm[Hg] [facility] Diastolic blood pressure 2022-07-01 21:35:00 60 mm[Hg] [facility] Heart rate 2022-07-01 21:35:00 81 /min [facility] Body temperature 2022-07-01 21:35:00 37.33 Elena [facility] Body height 2022-07-01 21:35:00 170.2 cm [facility] Body weight 2022-07-01 21:35:00 136.079 kg [facility] BMI 2022-07-01 21:35:00 46.99 kg/m2 [facility] Oxygen saturation in Arterial blood by Pulse oximetry 2022-07-01 21:35:00 98 /min [facility] Body height 2022-06-24 21:13:00 170.2 cm [facility] Body weight 2022-06-24 21:13:00 136.533 kg [facility] BMI 2022-06-24 21:13:00 47.14 kg/m2 [facility] Oxygen saturation in Arterial blood by Pulse oximetry 2022-06-24 21:13:00 99 /min [facility] Systolic blood pressure 2022-06-24 21:13:00 97 mm[Hg] [facility] Diastolic blood pressure 2022-06-24 21:13:00 64 mm[Hg] [facility] Heart rate 2022-06-24 21:13:00 73 /min [facility] Body temperature 2022-06-24 21:13:00 36.83 Elena [facility] BP Systolic 2024-12-30 10:48:00 111 mm[Hg] Step hen F Isrrael BP Diastolic 2024-12-30 10:48:00 80 mm[Hg] Dennys phen F Isrrael Weight Measured 2024-12-30 10:48:00 279.20 pounds Richard F Isrrael Height Measured 2024-12-30 10:48:00 67.50 inches Richard [facility] Body Temperature 2024-12-30 10:48:00 98.30 degrees Richard F Isrrael Heart Rate 2024-12-30 10:48:00 86.00 /min Francisca en F Isrrael Respiratory Rate 2024-12-30 10:48:00 18.00 /min Richard F [facility]rrael BP Systolic 2024-12-28 10:07:00 107 mm[Hg] Step hen F [facility] BP Diastolic 2024-12-28 10:07:00 76 mm[Hg] Dennys phen F Isrrael Weight Measured 2024-12-28 10:07:00 280.60 pounds Richard F Isrrael Height Measured 2024-12-28 10:07:00 67.50 inches Richard [facility] Body Temperature 2024-12-28 10:07:00 97.50 degrees Richard F Isrrael Heart Rate 2024-12-28 10:07:00 70.00 /min Francisca en F Isrrael Respiratory Rate 2024-12-28 10:07:00 18.00 /min Richard F Isrrale BP Systolic 2024-12-14 11:20:00 100 mm[Hg] Step hen F [facility] BP Diastolic 2024-12-14 11:20:00 63 mm[Hg] Dennys phen F Isrrael Weight Measured 2024-12-14 11:20:00 285.80 pounds Richard F Isrrael Height Measured 2024-12-14 11:20:00 67.50 inches Richard F [facility] Body Temperature 2024-12-14 11:20:00 98.40 degrees Richard F Isrrael Heart Rate 2024-12-14 11:20:00 77.00 /min Francisca en F [facility] Respiratory Rate 2024-12-14 11:20:00 18.00 /min Richard F [facility] BP Systolic 2024-09-16 15:01:00 112 mm[Hg] Step hen F [facility] BP Diastolic 2024-09-16 15:01:00 79 mm[Hg] Dennys phen F [facility]rael Weight Measured 2024-09-16 15:01:00 288.80 pounds Richard F Isrrael Height Measured 2024-09-16 15:01:00 67.50 inches Richard F [facility] Body Temperature 2024-09-16 15:01:00 98.00 degrees Richard F Isrrael Heart Rate 2024-09-16 15:01:00 82.00 /min Francisca en F [facility]rrael Respiratory Rate 2024-09-16 15:01:00 18.00 /min Richard F [facility] BP Systolic 2024-08-30 15:57:00 103 mm[Hg] Step hen F [facility] BP Diastolic 2024-08-30 15:57:00 74 mm[Hg] Dennys phen F [facility] Weight Measured 2024-08-30 15:57:00 289.00 pounds Richard F Isrrael Height Measured 2024-08-30 15:57:00 67.50 inches Richard F [facility] Body Temperature 2024-08-30 15:57:00 98.00 degrees Richard F Isrrael Heart Rate 2024-08-30 15:57:00 82.00 /min Francisca en F [facility]rael Respiratory Rate 2024-08-30 15:57:00 18.00 /min Richard F [facility] BP Systolic 2024-08-18 15:46:00 96 mm[Hg] Step hen F [facility] BP Diastolic 2024-08-18 15:46:00 71 mm[Hg] Dennys phen F [facility] Weight Measured 2024-08-18 15:46:00 286.60 pounds Richard F [facility] Height Measured 2024-08-18 15:46:00 67.50 inches Richard F [facility] Body Temperature 2024-08-18 15:46:00 97.80 degrees Richard F Isrrael Heart Rate 2024-08-18 15:46:00 83.00 /min Francisca en F [facility] Respiratory Rate 2024-08-18 15:46:00 17.00 /min Richard F [facility] BP Systolic 2023-01-08 08:12:00 116 mm[Hg] Step hen F [facility]rael BP Diastolic 2023-01-08 08:12:00 79 mm[Hg] Dennys phen Lorena Arcos Weight Measured 2023-01-08 08:12:00 280.00 pounds Richard Arcos Height Measured 2023-01-08 08:12:00 67.50 inches Richard Arcos Body Temperature 2023-01-08 08:12:00 98.20 degrees Richard Arcos Heart Rate 2023-01-08 08:12:00 71.00 /min Francisca en F [facility]rrael Respiratory Rate 2023-01-08 08:12:00 19.00 /min Richardjose m Arcos BP Systolic 2022-07-10 10:45:00 124 mm[Hg] Step hen Lorena Arcos BP Diastolic 2022-07-10 10:45:00 89 mm[Hg] Dennys phen Lorena Arcos Weight Measured 2022-07-10 10:45:00 302.00 pounds Richard Arcos Height Measured 2022-07-10 10:45:00 67.50 inches Richard Arcos Body Temperature 2022-07-10 10:45:00 98.20 degrees Richard Arcos Heart Rate 2022-07-10 10:45:00 65.00 /min Francisca en F Isrrael Respiratory Rate 2022-07-10 10:45:00 18.00 /min Richard Arcos Procedures Procedure Date / Time Performed Performing Clinician Source CERVICAL CONIZATION 2023-04-07 14:54:00 Bárbara Hernandez [facility] DSU PRE-OP 2023-04-01 06:01:00 Doctor Unass igned, [facility] INSURANCE CORRESPONDENCE 2023-03-27 06:01:00 Doc tor Unassigned, [facility] INSURANCE CORRESPONDENCE 2023-03-27 06:01:00 Doc tor Unassigned, [facility] DISCLOSURE AND CONSENT MEDICAL & SURGICAL PROCEDURES - FEMALM 2023-03-17 05:01:00 Doctor Unassigned, [facility] POCT TEST 2023-03-17 00:00:00 Bárbara Hernandez [facility] DISABILITY/FMLA 2023-01-21 05:01:00 Doctor Unass igned, [facility] XR FOOT 3+ VW RIGHT 2023-01-07 18:06:01 Criss Leyva [facility] POCT TEST 2023-01-07 17:03:00 Criss Leyva [facility] SLEEP STUDY DATA REPORT 2022-11-14 05:01:00 Doct or Unassigned, [facility] LAB ONLY PAP SMEAR-LIQUID BASED 2022-10-16 14:06:00 Criss Leyva [facility] GALV ONLY - VAGINAL PATHOGENS BY NUCLEIC ACID TESTING 2022-10-16 14:06:00 Criss Leyva [facility] PAP SMEAR-LIQUID BASED-CP 2022-10-16 14:06:00 Preet Leyva [facility] POCT TEST 2022-10-04 20:08:00 Criss Leyva [facility] VITAMIN B12, LEVEL 2022-09-11 16:30:00 Jelly Waters [facility] FREE T4 2022-09-11 16:30:00 Jelly Waters [facility] THYROID STIMULATING HORMONE 2022-09-11 16:30:00 Jelly Waters [facility] URINALYSIS 2022-09-11 16:30:00 [facility]TI-SSB(LA[facility] 2022-09-11 16:30:00 Jelly Waters [facility] ANTI-DOUBLE STRANDED DNA 2022-09-11 16:30:00 Alejandro Waters [facility] C-REACTIVE PROTEIN 2022-07-01 22:27:00 Criss Leyva [facility] SEDIMENTATION RATE 2022-07-01 22:27:00 Criss Leyva [facility] VITAMIN D, 25-OH 2022-07-01 22:27:00 Criss Leyva [facility] CONSENT/REFUSAL FOR DIAGNOSIS AND TREATMENT 2022-06-24 20:59:39 Doctor Unassigned, [facility] ASSIGNMENT OF BENEFITS 2022-06-24 20:59:23 Docto r Unassigned, [facility] FREE T4 2018-12-22 22:15:00 Anam, Jeannie [facility] THYROID STIMULATING HORMONE 2018-12-22 22:15:00 Jeannie Mendieta [facility] ASSIGNMENT OF BENEFITS 2018-12-22 21:51:15 Docto r Unassigned, [facility] Encounters Start Date/Time End Date/Time Encounter Type Admission Type Attending [facility] Care Department Encounter ID Source 2023-05-06 12:35:02 Outpatient R KRISTYARPITAE [facility] [id number] [facility] 2025-01-05 10:59:15 2025-01-05 10:59:15 Outpatient SFA SFA [id number] Richard Arcos 2025-01-05 00:00:00 2025-01-05 00:00:00 Outpatient Visit SFA [id number] Richard Arcos 2025-01-05 00:00:00 2025-01-05 00:00:00 Outpatient Visit SFA [id number] Richard Arcos 2024-12-30 10:37:50 2024-12-30 10:37:50 Outpatient SFA SFA [id number] Richard Arcos 2024-12-30 00:00:00 2024-12-30 00:00:00 Outpatient Visit SFA [id number] Richard Arcos 2024-12-28 00:00:00 2024-12-28 00:00:00 Outpatient Visit SFA [id number] Richard Arcos 2024-12-27 08:35:54 2024-12-27 08:35:54 Outpatient SFA SFA [id number] Richard Arcos 2024-12-14 11:08:43 2024-12-14 11:08:43 Outpatient SFA SFA [id number] Richard Arcos 2024-12-14 00:00:00 2024-12-14 00:00:00 Outpatient Visit SFA [id number] Richard Arcos 2024-12-07 09:30:40 2024-12-07 09:30:40 Outpatient SFA SFA [id number] Richard Arcos 2024-11-26 00:00:00 2024-11-26 00:00:00 Outpatient Visit SFA [id number] Richard Arcos 2024-09-16 14:50:18 2024-09-16 14:50:18 Outpatient SFA SFA [id number] Richard Arcos 2024-09-16 00:00:00 2024-09-16 00:00:00 Outpatient Visit SFA [id number] Richard Arcos 2024-08-30 15:44:14 2024-08-30 15:44:14 Outpatient SFA SFA [id number] Richard Arcos 2024-08-30 00:00:00 2024-08-30 00:00:00 Outpatient Visit SFA [id number] Richard Arcos 2024-08-19 08:29:39 2024-08-19 08:29:39 Outpatient SFA SFA [id number] Richard Arcos 2024-08-18 15:28:41 2024-08-18 15:28:41 Outpatient SFA [id number] [id number] Richard Arcos 2024-08-18 00:00:00 2024-08-18 00:00:00 Outpatient Visit SFA [id number] Richard Arcos 2024-07-19 09:17:44 2024-07-19 09:17:44 Outpatient SFA SFA [id number] Richard Arcos 2024-07-10 10:04:32 2024-07-10 10:04:32 Outpatient SFA SFA [id number] Richard Arcos 2024-07-09 11:01:34 2024-07-09 11:01:34 Outpatient SFA SFA [id number] Richard Arcos 2024-06-21 08:25:59 2024-06-21 08:25:59 Outpatient SFA SFA [id number] Richard Arcos 2024-02-23 00:00:00 2024-03-27 18:24:07 [facility] 1.2.840.114 350.1.13.10 4.2.7.2.686 [id number] [facility] 2024-03-23 09:27:15 2024-03-23 09:27:15 Outpatient SFA SFA [id number] Richard Arocs 2024-02-21 00:00:00 2024-02-23 15:55:27 [facility] 1.2.840.114 350.1.13.10 4.2.7.2.686 [id number] [facility] 2023-12-31 10:30:00 2023-12-31 10:45:22 Outpatient R MARJORIE BENÍTEZ [facility] [id number] [facility] 2023-12-31 10:30:00 2023-12-31 10:45:22 Office Visit Marjorie Benítez [facility] .2.840.114 350.1.13.10 4.2.7.2.686 [id number] [facility] 2023-12-25 10:07:46 2023-12-25 10:07:46 Outpatient SFA SFA [id number] Richard Arcos 2023-12-22 00:00:00 2023-12-23 09:24:19 Telephone Marjorie Benítez [facility] MARINE ENGINE[facility] MATERNAL [facility] CHILD [facility] 1..840.114 350.1.13.10 4.2.7.2.686 [id number] [facility] 2023-12-22 10:30:00 2023-12-22 10:30:00 Outpatient R MARJORIE BENÍTEZ [facility] [id number] [facility] 2023-11-06 07:45:00 2023-11-06 08:33:44 [id number] 2023-11-06 07:45:00 2023-11-06 08:33:44 Office Visit Jeyson [facility] MARINE ENGINEER [facility] 1..840.114 350.1.13.10 4.2.7.2.686 [id number] [facility] 2023-11-04 08:30:00 2023-11-04 08:30:00 Outpatient R LOWE-TD S, BÁRBARA LOWE-TD S, BÁRBARA [facility] [id number] [facility] 2023-10-28 08:30:00 2023-10-28 08:30:00 Outpatient R LOWE-TD S, BÁRBARA LOWE-TD S, BÁRBARA [facility] [id number] [facility] 2023-10-27 17:28:24 2023-10-27 17:28:24 Outpatient SFA SFA [id number] Richard Arcos 2023-10-24 15:16:43 2023-10-24 15:16:43 Outpatient SFA SFA [id number] Richard Carrillo Isrrael 2023-08-27 11:41:54 2023-08-27 11:41:54 Outpatient SFA SFA [id number] Richard Arcos 2023-08-11 00:00:00 2023-08-11 00:00:00 Telephone Criss Leyva [facility] FINN?[facility] 1..840.114 350.1.13.10 4.2.7.2.686 [id number] [facility] 2023-07-06 00:00:00 2023-07-06 00:00:00 [facility]ill [facility] 1.2840.114 350.1.13.10 4.2.7.2.686 [id number] [facility] 2023-05-06 10:58:37 2023-05-06 23:59:00 Outpatient R KRISTY [facility] [id number] [facility] 2023-05-06 10:40:00 2023-05-06 23:59:00 Hospital Encounter Kristy [facility] 1.2840.114 350.1.13.10 4.2.7.2.686 [id number] [facility] 2023-05-06 10:10:00 2023-05-06 11:34:54 Office Visit Kristy [facility] 1.2840.114 350.1.13.10 4.2.7.2.686 [id number] [facility] 2023-05-06 00:00:00 2023-05-06 00:00:00 Patient Secure Msg Kristy [facility] MEDICAL OFFICE BUILDING 1.2840.114 350.1.13.10 4.2.7.2.686 [id number] [facility] 2023-05-05 00:00:00 2023-05-05 00:00:00 Telephone AutumnCriss [facility] FINN?[facility] 1.2840.114 350.1.13.10 4.2.7.2.686 [id number] [id number] [facility] 2023-04-29 11:00:00 2023-04-29 11:00:00 Office Visit Diallo sung Bárbara [facility] 1.2.840.114 350.1.13.10 4.2.7.2.686 [id number] [facility] 2023-04-29 11:00:00 2023-04-29 10:55:42 Outpatient R DIALLO Sung, BÁRBARADANIELLE Sung BÁRBARA [facility] [id number] [facility] 2023-04-28 00:00:00 2023-04-28 00:00:00 Telephone VikaCriss el [facility]?LIZET [facility] MEDICAL OFFICE BUILDING 1.2.840.114 350.1.13.10 4.2.7.2.686 [id number] [id number] [facility] 2023-04-23 14:30:00 2023-04-23 14:45:00 Salesperson 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 Visit Lab, Price Leyva [facility] 1.2.840.114 350.1.13.10 4.2.7.2.686 [id number] [facility] 2023-04-23 14:00:00 2023-04-23 14:23:47 Outpatient R VIKACRISS El [facility] [id number] [facility] 2023-04-23 14:00:00 2023-04-23 14:23:47 Office Visit Vikayo [facility] 1.2.840.114 350.1.13.10 4.2.7.2.686 [id number] [facility] 2023-04-08 13:01:17 2023-04-08 13:01:17 Outpatient [facility] [id number] Richard Carrillo Isrrael 2023-04-07 07:33:00 2023-04-07 11:00:00 Hospital Encounter Diallo sung Bárbara [facility] 1.2.840.114 350.1.13.10 4.2.7.2.686 [id number] [facility] 2023-04-07 07:33:00 2023-04-07 11:00:00 Outpatient R LOWE-TD S, BÁRBARA LOWE-TD S, BÁRBARA [facility] [id number] [facility] 2023-04-07 08:39:00 2023-04-07 09:58:00 Surgery Lowe-Td s, Bárbara [facility] 1.2.840.114 350.1.13.10 4.2.7.2.686 [id number] [facility] 2023-04-05 10:45:00 2023-04-05 11:00:00 Salesperson Meats Visit Pob, Adc Lab Main Lowe-Td s, Bárbara [facility] 1.2.840.114 350.1.13.10 4.2.7.2.686 [id number] [facility] 2023-04-05 10:45:00 2023-04-05 10:45:00 Outpatient R LOWE-TD S, BÁRBARA LOWE-TD S, BÁRBARA [facility] [id number] [facility] 2023-04-01 11:00:00 2023-04-01 11:30:00 Office Visit Lowe-Td s, Bárbara [facility] 1.2.840.114 350.1.13.10 4.2.7.2.686 [id number] [facility] 2023-04-01 11:00:00 2023-04-01 11:00:00 Outpatient R LOWE-TD S, BÁRBARA LOWE-TD S, BÁRBARA [facility] [id number] [facility] 2023-04-01 00:00:00 2023-04-01 00:00:00 Orders Only Doctor Unassigned, Ber[place] [facility] 1.2.114 350.1.13.10 4.2.7.2.686 [id number] [facility] 2023-03-20 10:00:00 2023-03-20 10:30:00 Office Visit Lowe-Td s Bárbara [facility] 1..114 350.1.13.10 4.2.7.2.686 [id number] [facility] 2023-03-20 10:00:00 2023-03-20 10:00:00 Outpatient R LOWE-TD S, BÁRBARA LOWE-TD S, BÁRBARA [facility] [id number] [facility] 2023-03-19 20:00:00 2023-03-19 20:00:00 Outpatient R BRISA, YESSYHIL BRISA, STRAHIL [facility] [id number] [facility] 2023-03-19 00:00:00 2023-03-19 00:00:00 Patient Secure Msg Lowe-Td s, Bárbara [facility] 1.84.114 350.1.13.10 4.2.7.2.686 [id number] [facility] 2023-03-17 14:30:00 2023-03-17 15:29:16 Outpatient R LOWE-TD S, BÁRBARA LOWE-TD S, BÁRBARA [facility] [id number] [facility] 2023-03-17 14:30:00 2023-03-17 15:29:16 Office Visit Lowe-Td s, Bárbara [facility] 1.2840.114 350.1.13.10 4.2.7.2.686 [id number] 134 [id number] [facility] 2023-03-17 00:00:00 2023-03-17 00:00:00 Orders Only Doctor Unassigned, Berwyn [facility] 1.2.840.114 350.1.13.10 4.2.7.2.686 [id number] [facility] 2023-03-13 16:03:07 2023-03-13 16:03:07 Outpatient [facility] [id number] Richard Arcos 2023-03-10 00:00:00 2023-03-10 00:00:00 Patient Secure Msg Doctor Unassigned, Berwyn [facility]?LIZET [facility] MEDICAL OFFICE BUILDING 1.2.840.114 350.1.13.10 4.2.7.2.686 [id number] [facility] 2023-02-26 11:00:00 2023-02-26 23:59:00 Outpatient LANG PEREZ HOWARD [facility] [id number] [facility] 2023-02-26 11:00:00 2023-02-26 23:59:00 Hospital Encounter Lang Viveros [facility] Eeg RUEL SIMMS [facility] 1.2.840.114 350.1.13.10 4.2.7.2.686 [id number] [facility] 2023-02-18 00:00:00 2023-02-18 00:00:00 Patient Secure Msg Doctor Unassigned, Berwyn RUEL JARRETTY ANNEX 1.2.840.114 350.1.13.10 4.2.7.2.686 [id number] [facility] 2023-02-13 15:21:55 2023-02-13 15:21:55 Outpatient [facility] [id number] Richard Arcos 2023-02-10 10:40:00 2023-02-10 11:23:05 Outpatient LANG PEREZ HOWARD [facility] [id number] [facility] 2023-02-10 10:40:00 2023-02-10 11:23:05 Office Visit Lang Viveros [facility] FINN?LIZET [facility] MEDICAL OFFICE BUILDING 1.84.114 350.1.13.10 4.2.7.2.686 [id number] [facility] 2023-01-21 00:00:00 2023-01-21 00:00:00 Orders Only Doctor Unassigned, Berwyn [facility] 1.84.114 350.1.13.10 4.2.7.2.686 [id number] [facility] 2023-01-14 15:31:53 2023-01-14 15:31:53 Outpatient SFA SFA [id number] Richard Arcos 2023-01-14 13:30:00 2023-01-14 13:30:00 Outpatient R CRISS LEYVA [facility] [id number] [facility] 2023-01-14 10:00:00 2023-01-14 10:38:59 Outpatient R AUTUMN CRISS [facility] [id number] [facility] 2023-01-14 10:00:00 2023-01-14 10:38:59 Office Visit Vikayo Criss [facility] FINN?LIZET [facility] MEDICAL OFFICE BUILDING 1.840.114 350.1.13.10 4.2.7.2.686 [id number] [facility] 2023-01-08 08:06:42 2023-01-08 08:06:42 Outpatient SFA SFA [id number] Richard Arcos 2023-01-08 00:00:00 2023-01-08 00:00:00 Telephone Autumn Criss [facility] FINN?LIZET [facility] MEDICAL OFFICE BUILDING 1.840.114 350.1.13.10 4.2.7.2.686 [id number] [facility] 2023-01-07 12:51:56 2023-01-07 23:59:00 Outpatient R CRISS LEYVA [facility] [id number] [facility] 2023-01-07 12:51:56 2023-01-07 23:59:00 Hospital Encounter Criss Leyva [facility] 1.2.840.114 350.1.13.10 4.2.7.2.686 [id number] [facility] 2023-01-07 12:15:00 2023-01-07 12:30:00 Salesperson Meats Visit Lab, Ang - Db Autumn [facility] FINN?LIZET [facility] MEDICAL OFFICE BUILDING 1.2.840.114 350.1.13.10 4.2.7.2.686 [id number] [facility] 2023-01-07 11:30:00 2023-01-07 12:00:00 Office Visit Criss Leyva [facility] FINN?[facility] MED[facility] OFF[facility] BU[facility] 1.2.840.114 350.1.13.10 4.2.7.2.686 [id number] 044 [id number] [facility] 2022-12-26 00:00:00 2022-12-26 00:00:00 Patient Secure Msg Criss Leyva [facility] FINN?[facility] MEDICAL OFF[facility] BUILD[facility] 1.2.840.114 350.1.13.10 4.2.7.2.686 [id number] 044 [id number] [facility] 2022-12-21 00:00:00 2022-12-21 00:00:00 Patient Secure Msg Autumn Critical [facility] hospital FINN?[facility] MED[facility] OFF[facility] BUILD[facility] 1.2.840.114 350.1.13.10 4.2.7.2.686 [id number] [facility] 2022-12-18 08:20:49 2022-12-18 08:20:49 Outpatient SFA JOHNATHAN [id number] Richard Arcos 2022-12-16 13:30:00 2022-12-16 14:07:58 Outpatient R CRISS LEYVA [facility] [id number] [facility] 2022-12-16 13:30:00 2022-12-16 14:07:58 Office Visit Criss Leyva [facility] FINN?[facility] OFF[facility] BUILD[facility] 1.2840.114 350.1.13.10 4.2.7.2.686 [id number] [facility] 2022-11-22 00:00:00 2022-11-22 00:00:00 Telephone Criss Leyva [facility] FINN?LIZET [facility] MEDICAL OFFICE BUILDING 1.2.114 350.1.13.10 4.2.7.2.686 [id number] 044 [id number] [facility] 2022-11-21 00:00:00 2022-11-21 00:00:00 Patient Secure Mandy Herron [facility] 1.114 350.1.13.10 4.2.7.2.686 [id number] [facility] 2022-11-20 11:30:00 2022-11-20 12:00:00 Office Visit Criss Leyva [facility] FINN?[facility]ILD[facility] 1.2840.114 350.1.13.10 4.2.7.2.686 [id number] [id number] [facility] 2022-11-20 11:30:00 2022-11-20 11:30:00 Outpatient R VIKACRISS El [facility] [id number] [facility] 2022-11-14 20:00:00 2022-11-14 22:30:00 Salesperson Meats Visit 1, Adc Sleep Lab Bed Manda Atkinson [facility] 1.840.114 350.1.13.10 4.2.7.2.686 [id number] [facility] 2022-11-14 20:00:00 2022-11-14 20:00:00 Outpatient R MANDA ATKINSON STRAHIL [facility] [id number] [facility] 2022-11-14 00:00:00 2022-11-14 00:00:00 Orders Only Doctor Unassigned, Ber[place] [facility] 1.114 350.1.13.10 4.2.7.2.686 [id number] [facility] 2022-10-30 11:30:00 2022-10-30 12:00:00 Office Visit Mandy Wagner [facility] 1.84.114 350.1.13.10 4.2.7.2.686 [id number] [facility] 2022-10-30 11:30:00 2022-10-30 11:30:00 Outpatient R MANDY WAGNER [facility] [id number] [facility] 2022-10-29 00:00:00 2022-10-29 00:00:00 Patient Secure Msg Vikayo [facility]?LIZET [facility] MEDICAL OFFICE BUILDING 1..840.114 350.1.13.10 4.2.7.2.686 [id number] 044 [id number] [facility] 2022-10-16 08:00:00 2022-10-16 14:55:11 Office Visit Autumn Criss [facility] MEDICAL OFFICE BUILDING 1.840.114 350.1.13.10 4.2.7.2.686 [id number] [facility] 2022-10-16 08:00:00 2022-10-16 14:55:11 Outpatient R CRISS LEYVA [facility] [id number] [facility] 2022-10-07 11:30:00 2022-10-07 11:55:18 Outpatient R CRISS LEYVA [facility] [id number] [facility] 2022-10-07 11:30:00 2022-10-07 11:55:18 [facility] 1.2840.114 350.1.13.10 4.2.7.2.686 [id number] [facility] 2022-10-04 14:49:29 2022-10-04 23:59:00 Outpatient R CRISS LEYVA [facility] [id number] [facility] 2022-10-04 13:30:00 2022-10-04 14:50:33 Office Visit [facility]iss [facility] 1.2840.114 350.1.13.10 4.2.7.2.686 [id number] [id number] [facility] 2022-09-23 00:00:00 2022-09-23 00:00:00 Patient Secure Msg Criss Leyva [facility] FINN?LIZET [facility] MEDICAL OFFICE BUILDING 1.2840.114 350.1.13.10 4.2.7.2.686 [id number] [id number] [facility] 2022-09-23 00:00:00 2022-09-23 00:00:00 Telephone Criss [facility]ET [facility] MEDICAL OFFICE BUILDING 1.2840.114 350.1.13.10 4.2.7.2.686 [id number] [id number] [facility] 2022-09-11 13:30:00 2022-09-11 13:45:00 Salesperson Meats Visit Pcp-Jelly Orozco [facility] 1.2.840.114 350.1.13.10 4.2.7.2.686 [id number] [facility] 2022-09-11 10:45:00 2022-09-11 11:19:19 Outpatient JELLY ZIMMERMAN [facility] [id number] [facility] 2022-09-11 10:45:00 2022-09-11 11:19:19 Office Visit Jelly Waters [facility] 1..114 350.1.13.10 4.2.7.2.686 [id number] [facility] 2022-08-27 15:15:00 2022-08-27 15:15:00 Outpatient ELIZA GIORDANO [facility] [id number] [facility] 2022-08-14 15:15:00 2022-08-14 16:00:00 Ancillary Visit Moraima Gramajo 1, [employer] Zuleyma Rivas [facility] [employer] [facility]. 184.114 350.1.13.10 4.2.7.2.686 [id number] [facility] 2022-08-14 15:15:00 2022-08-14 15:15:00 Outpatient ZULEYMA MUNOZ [facility] [id number] [facility] 2022-08-06 13:45:00 2022-08-06 13:45:00 Outpatient ZULEYMA MUNOZ [facility] [id number] [facility] 2022-08-06 00:00:00 2022-08-06 00:00:00 Patient Secure Msg Doctor Unassigned, Ber[place] [facility] 1.114 350.1.13.10 4.2.7.2.686 [id number] [facility] 2022-07-12 00:00:00 2022-07-12 00:00:00 Telephone [facility]iss [facility] 1.114 350.1.13.10 4.2.7.2.686 [id number] [id number] [facility] 2022-07-08 00:00:00 2022-07-08 00:00:00 Patient Secure Msg Doctor Unassigned, [place] [facility] MEDICAL OFFICE BUILDING 1.84.114 350.1.13.10 4.2.7.2.686 [id number] [id number] [facility] 2022-07-05 00:00:00 2022-07-05 00:00:00 Telephone VikaCriss el [facility] MEDICAL OFFICE BUILDING 1.84.114 350.1.13.10 4.2.7.2.686 [id number] [id number] [facility] 2022-07-05 00:00:00 2022-07-05 00:00:00 Telephone AutumnCriss [facility] FINN?[facility] MED[facility] OFF[facility] 1.84.114 350.1.13.10 4.2.7.2.686 [id number] [id number] [facility] 2022-07-01 16:30:00 2022-07-01 17:25:44 Outpatient R CRISS LEYVA [facility] [id number] [facility] 2022-07-01 16:30:00 2022-07-01 17:25:44 Salesperson Meats Visit Lab, Ang - Db Autumn Criss [facility] FINN?[facility] MED[facility] OFF[facility] BUILD[facility] 1.84.114 350.1.13.10 4.2.7.2.686 [id number] [facility] 2022-07-01 15:30:00 2022-07-01 16:17:16 Office Visit Autumn [facility] MEDICAL OFFICE BUILDING 1.84.114 350.1.13.10 4.2.7.2.686 [id number] 044 [id number] [facility] 2022-06-24 16:00:00 2022-06-24 16:15:00 Salesperson Meats Visit Lab, Ang - Db Criss Leyva [facility] FINN?[facility] 1..840.114 350.1.13.10 4.2.7.2.686 [id number] [facility] 2022-06-24 15:00:00 2022-06-24 15:44:54 Outpatient R CRISS LEYVA [facility] [id number] [facility] 2022-06-24 15:00:00 2022-06-24 15:44:54 Office Visit Criss Leyva [facility] FINN?[facility] 1..840.114 350.1.13.10 4.2.7.2.686 [id number] [id number] [facility] 2022-06-24 00:00:00 2022-06-24 00:00:00 Orders Only Doctor Unassigned, [place] [facility] 1..840.114 350.1.13.10 4.2.7.2.686 [id number] [facility] 2020-12-14 14:30:00 2020-12-14 14:30:00 Outpatient R SYDNI CAO [facility] [id number] [facility] 2018-12-31 00:00:00 2018-12-31 00:00:00 Telephone Ozzie Juárez [facility] 1..840.114 350.1.13.10 4.2.7.2.686 [id number] [facility] 2018-12-31 00:00:00 2018-12-31 00:00:00 Telephone Ozzie Juárez F[facility] 1.2.840.114 350.1.13.10 4.2.7.2.686 [id number] 220 [id number] 2018-12-29 00:00:2018-12-29 00:00:00 [facility] 1.2.840.114 350.1.13.10 4.2.7.2.686 [id number] 220 [id number] [facility] 2018-12-29 00:00:00 2018-12-29 00:00:00 Telephone Ozzie Juárez [facility] 1.2.840.114 350.1.13.10 4.2.7.2.686 [id number] 220 [id number] 2018-12-28 00:00:00 2018-12-28 00:00:00 Telephone Ozzie Juárez [facility] 1.2.840.114 350.1.13.10 4.2.7.2.686 [id number] 220 [id number] [facility] 2018-12-28 00:00:00 2018-12-28 00:00:00 Telephone Ozzie Juárez [facility] 1.2.840.114 350.1.13.10 4.2.7.2.686 [id number] 220 [id number] 2018-12-22 16:50:48 2018-12-24 21:42:12 Salesperson Meats Visit 1, [facility] 1.2.840.114 350.1.13.10 4.2.7.2.686 [id number] 2018-12-22 16:50:48 2018-12-24 21:42:12 Salesperson Meats Visit 1, Adc Lab Ozzie Juárez [facility] 1.2.840.114 350.1.13.10 4.2.7.2.686 [id number] [facility] 2018-12-22 00:00:00 2018-12-22 00:00:00 Orders Only Doctor Unassigned, [place] [facility] 1.2.840.114 350.1.13.10 4.2.7.2.686 [id number] [facility] 2018-12-21 00:00:00 2018-12-21 00:00:00 Telephone Ozzie Juárez [facility] 1.2.840.114 350.1.13.10 4.2.7.2.686 [id number] 220 [id number] [facility] 2018-12-18 00:00:00 2018-12-18 00:00:00 Telephone Ozzie Juárez [facility] 1.2.840.114 350.1.13.10 4.2.7.2.686 [id number] 220 [id number] [facility] Results Test Description Test Time Test Comments Results Result Co mments Source Richard Carrillo IsrraelTHINPREP TIS PAP AND HPV mRNA E6/E7 WITH REFLEX TO HPV 16,18/45 2025-01-03 00:00:00* Test Item Value Reference Range Interpretation Comme nts REPORT STATUS: (test code = 8251-1) DNR GENERAL CATEGORIZATION: (blossom t code = 65753-6) DNR INFECTION: (test code = 50023-4) DNR REVIEW MANAGER CT: (te st code = 32945-9) DNR PATHOLOGIST: (test code = 76694-9) DNR HPV mRNA E6/E7 (test code = 84474-0) Not Detected Richard ArcosOBSTETRIC [id number] 00:00:00* Test Item Value Reference Range Interpretation Comme nts WHITE BLOOD CELL COUNT (test code = 6690-2) 10.0 Thousand/uL RED BLOOD CELL COUNT (test code = 789-8) 4.32 Million/uL HEMOGLOBIN (test code = 718-7) 13.4 g/dL HEMATOCRIT (test code = 4544-3) 42.1 % MCV (test code = 787-2) 97.5 fL MCH (test code = 785-6) 31.0 pg MCHC (test code = 786-4) 31.8 g/dL RDW (test code = 788-0) 12.1 % PLATELET COUNT (test code = 777-3) 320 Thousand/uL MPV (test code = 776-5) 10.0 fL ABSOLUTE NEUTROPHILS (test code = 751-8) 7420 cells/uL ABSOLUTE BAND NEUTROPHILS (test code = 51518-6) DNR cells/uL ABSOLUTE METAMYELOCYTES (test code = 87276-8) DNR cells/uL ABSOLUTE MYELOCYTES (test code = 73849-9) DNR cells/uL ABSOLUTE PROMYELOCYTES (test code = 49471-0) DNR cells/uL ABSOLUTE LYMPHOCYTES (test code = 731-0) 1680 cells/uL ABSOLUTE MONOCYTES (test code = 742-7) 730 cells/uL ABSOLUTE EOSINOPHILS (test code = 711-2) 90 cells/uL ABSOLUTE BASOPHILS (test code = 704-7) 80 cells/uL ABSOLUTE BLASTS (test code = 32237-3) DNR cells/uL ABSOLUTE NUCLEATED RBC (test code = 03993-3) DNR cells/uL NEUTROPHILS (test code = 770-8) 74.2 % BAND NEUTROPHILS (test code = 764-1) DNR % METAMYELOCYTES (test code = 740-1) DNR % MYELOCYTES (test code = 749-2) DNR % PROMYELOCYTES (test code = 783-1) DNR % LYMPHOCYTES (test code = 736-9) 16.8 % REACTIVE LYMPHOCYTES (test code = 42364-3) DNR % MONOCYTES (test code = 5905-5) 7.3 % EOSINOPHILS (test code = 713-8) 0.9 % BASOPHILS (test code = 706-2) 0.8 % BLASTS (test code = 709-6) DNR % NUCLEATED RBC (test code = 43467-3) DNR /100WBC COMMENT(S) (test code = 8251-1) DNR ANTIBODY SCREEN, RBC W/REFL ID, TITER AND AG (test code = 890-4) NO ANTIBODIES DETECTED ABO GROUP (test code = 883-9) A RH TYPE (test code = 72950-5) RH(D) POSITIVE RPR (DX) W/REFL TITER AND CONFIRMATORY TESTING (test code = 86672-2) NON-REACTIVE HEPATITIS B SURFACE ANTIGEN (test code = 5196-1) NON-REACTIVE CONFIRMATION (test code = 7905-3) DNR RUBELLA AB (IGG), IMMUNE STATUS (test code = 5334-8) 21.20 Index Richard ArcosCULTURE, URINE, [id number] 00:00:00* Test Item Value Reference Range Interpretation Comme nts CULTURE, URINE, ROUTINE (blossom t code = 630-4) SEE NOTE Richard ArcosHIV 1/2 ANTIGEN/ANTIBODY,FOURTH GENERATION [id number] 00:00:00* Test Item Value Reference Range Interpretation Comme nts HIV AG/AB, 4TH GEN (test cod e = 05969-8) NON-REACTIVE Richard [id number] 00:00:00* Test Item Value Reference Range Interpretation Comme nts TSH (test code = 3016-3) 1.63 mIU/L Richard ArcosHEPATITIS PANEL, [id number] 00:00:00* Test Item Value Reference Range Interpretation Comme nts HEPATITIS A AB, TOTAL (test code = 16984-5) REACTIVE HEPATITIS B SURFACE ANTIBODY QL (test code = 52721-5) NON-REACTIVE HEPATITIS B SURFACE ANTIGEN (test code = 5196-1) NON-REACTIVE CONFIRMATION (test code = 7905-3) DNR HEPATITIS B CORE AB TOTAL (t est code = 57301-9) NON-REACTIVE HEPATITIS C ANTIBODY (test c ode = 33160-7) NON-REACTIVE Richard ArcosVARICELLA ZOSTER VIRUS ANTIBODY (IGG)2025-01-01 00:00:00* Test Item Value Reference Range Interpretation Comme nts VARICELLA ZOSTER VIRUS ANTIB POOJA (IGG) (test code = 5403-1) 15.30 S/CO Richard ArcosCHLAMYDIA/N. GONORRHOEAE RNA, [id number] 00:00:00* Test Item Value Reference Range Interpretation Comme nts CHLAMYDIA TRACHOMATIS RNA, T MA, UROGENITAL (test code = 68302-6) NOT DETECTED NEISSERIA GONORRHOEAE RNA, T MA, UROGENITAL (test code = 99229-3) NOT DETECTED Richard ArcosCULTURE, URINE, [id number] 00:00:00* Test Item Value Reference Range Interpretation Comme nts CULTURE, URINE, ROUTINE (blossom t code = 630-4) SEE NOTE Richard Carrillo AustinOBSTETRIC [id number] 00:00:00* Test Item Value Reference Range Interpretation Comme nts WHITE BLOOD CELL COUNT (test code = 6690-2) 10.0 Thousand/uL RED BLOOD CELL COUNT (test code = 789-8) 4.32 Million/uL HEMOGLOBIN (test code = 718-7) 13.4 g/dL HEMATOCRIT (test code = 4544-3) 42.1 % MCV (test code = 787-2) 97.5 fL MCH (test code = 785-6) 31.0 pg MCHC (test code = 786-4) 31.8 g/dL RDW (test code = 788-0) 12.1 % PLATELET COUNT (test code = 777-3) 320 Thousand/uL MPV (test code = 776-5) 10.0 fL ABSOLUTE NEUTROPHILS (test code = 751-8) 7420 cells/uL ABSOLUTE BAND NEUTROPHILS (test code = 90475-8) DNR cells/uL ABSOLUTE METAMYELOCYTES (test code = 73889-3) DNR cells/uL ABSOLUTE MYELOCYTES (test code = 51009-9) DNR cells/uL ABSOLUTE PROMYELOCYTES (test code = 34645-5) DNR cells/uL ABSOLUTE LYMPHOCYTES (test code = 731-0) 1680 cells/uL ABSOLUTE MONOCYTES (test code = 742-7) 730 cells/uL ABSOLUTE EOSINOPHILS (test code = 711-2) 90 cells/uL ABSOLUTE BASOPHILS (test code = 704-7) 80 cells/uL ABSOLUTE BLASTS (test code = 76862-6) DNR cells/uL ABSOLUTE NUCLEATED RBC (test code = 77394-8) DNR cells/uL NEUTROPHILS (test code = 770-8) 74.2 % BAND NEUTROPHILS (test code = 764-1) DNR % METAMYELOCYTES (test code = 740-1) DNR % MYELOCYTES (test code = 749-2) DNR % PROMYELOCYTES (test code = 783-1) DNR % LYMPHOCYTES (test code = 736-9) 16.8 % REACTIVE LYMPHOCYTES (test code = 04487-9) DNR % MONOCYTES (test code = 5905-5) 7.3 % EOSINOPHILS (test code = 713-8) 0.9 % BASOPHILS (test code = 706-2) 0.8 % BLASTS (test code = 709-6) DNR % NUCLEATED RBC (test code = 17284-8) DNR /100WBC COMMENT(S) (test code = 8251-1) DNR ANTIBODY SCREEN, RBC W/REFL ID, TITER AND AG (test code = 890-4) NO ANTIBODIES DETECTED ABO GROUP (test code = 883-9) A RH TYPE (test code = 51289-6) RH(D) POSITIVE RPR (DX) W/REFL TITER AND CONFIRMATORY TESTING (test code = 37972-8) NON-REACTIVE HEPATITIS B SURFACE ANTIGEN (test code = 5196-1) NON-REACTIVE CONFIRMATION (test code = 7905-3) DNR RUBELLA AB (IGG), IMMUNE STATUS (test code = 5334-8) 21.20 Index Richard ArcosHIV 1/2 ANTIGEN/ANTIBODY,FOURTH GENERATION [id number] 00:00:00* Test Item Value Reference Range Interpretation Comme nts HIV AG/AB, 4TH GEN (test cod e = 73044-7) NON-REACTIVE Richard Carrillo [id number] 00:00:00* Test Item Value Reference Range Interpretation Comme nts TSH (test code = 3016-3) 1.63 mIU/L Richard ArcosHEPATITIS PANEL, [id number] 00:00:00* Test Item Value Reference Range Interpretation Comme nts HEPATITIS A AB, TOTAL (test code = 77068-2) REACTIVE HEPATITIS B SURFACE ANTIBODY QL (test code = 77750-4) NON-REACTIVE HEPATITIS B SURFACE ANTIGEN (test code = 5196-1) NON-REACTIVE CONFIRMATION (test code = 7905-3) DNR HEPATITIS B CORE AB TOTAL (t est code = 81270-9) NON-REACTIVE HEPATITIS C ANTIBODY (test c ode = 72186-3) NON-REACTIVE Richard Carrillo AustinVARICELLA ZOSTER VIRUS ANTIBODY (IGG)2025-01-01 00:00:00* Test Item Value Reference Range Interpretation Comme nts VARICELLA ZOSTER VIRUS ANTIB POOJA (IGG) (test code = 5403-1) 15.30 S/CO Richard ArcosCHLAMYDIA/N. GONORRHOEAE RNA, [id number] 00:00:00* Test Item Value Reference Range Interpretation Comme nts CHLAMYDIA TRACHOMATIS RNA, T MA, UROGENITAL (test code = 01019-0) NOT DETECTED NEISSERIA GONORRHOEAE RNA, T MA, UROGENITAL (test code = 64296-9) NOT DETECTED Richard F AustinGLUCOSE, POSTPRANDIAL/ 1 [id number] 00:00:00* Test Item Value Reference Range Interpretation Comme nts GLUCOSE, POSTPRANDIAL/ 1 KAITLIN R (test code = 04881-2) 87 mg/dL Richard F AustinBV/VAGINITIS PANEL DNA [id number] 00:00:00* Test Item Value Reference Range Interpretation Comme nts TRICHOMONAS: (test code = 6568-0) NOT DETECTED GARDNERELLA: (test code = 6410-5) DETECTED ROCIO: (test code = 86630-3) NOT DETECTED Richard F AustinGLUCOSE, POSTPRANDIAL/ 1 [id number] 00:00:00* Test Item Value Reference Range Interpretation Comme nts GLUCOSE, POSTPRANDIAL/ 1 KAITLIN R (test code = 50321-5) 87 mg/dL Richard F AustinBV/VAGINITIS PANEL DNA [id number] 00:00:00* Test Item Value Reference Range Interpretation Comme nts TRICHOMONAS: (test code = 6568-0) NOT DETECTED GARDNERELLA: (test code = 6410-5) DETECTED ROCIO: (test code = 01861-1) NOT DETECTED Richard F AustinSED RATE BY MODIFIED WESTERGREN [ADDED]2024-08-25 00:00:00* Test Item Value Reference Range Interpretation Comme nts SED RATE BY MODIFIED WESTERG SWETHA (test code = 4537-7) 2 mm/h Richard F AustinC-REACTIVE PROTEIN [ADDED]2024-08-25 00:00:00* Test Item Value Reference Range Interpretation Comme nts C-REACTIVE PROTEIN (test cod e = 1988-5) <3.0 mg/L Richard F AustinHELICOBACTER PYLORI, UREA BREATH [id number] 00:00:00* Test Item Value Reference Range Interpretation Comme nts HELICOBACTER PYLORI, UREA BR EATH TEST (test code = 23950-4) NOT DETECTED Richard F AustinAMYLASE AND LIPASE [ADDED]2024-08-25 00:00:00* Test Item Value Reference Range Interpretation Comme nts AMYLASE (test code = 1798-8) 26 U/L LIPASE (test code = 3040-3) 25 U/L Richard F AustinSED RATE BY MODIFIED WESTERGREN [ADDED]2024-08-25 00:00:00* Test Item Value Reference Range Interpretation Comme nts SED RATE BY MODIFIED WESTERG SWETHA (test code = 4537-7) 2 mm/h Richard F AustinC-REACTIVE PROTEIN [ADDED]2024-08-25 00:00:00* Test Item Value Reference Range Interpretation Comme nts C-REACTIVE PROTEIN (test cod e = 1987-5) <3.0 mg/L Richard F AustinHELICOBACTER PYLORI, UREA BREATH [id number] 00:00:00* Test Item Value Reference Range Interpretation Comme nts HELICOBACTER PYLORI, UREA BR EATH TEST (test code = 96928-2) NOT DETECTED Richard F AustinAMYLASE AND LIPASE [ADDED]2024-08-25 00:00:00* Test Item Value Reference Range Interpretation Comme nts AMYLASE (test code = 1798-8) 26 U/L LIPASE (test code = 3040-3) 25 U/L Richard F AustinSED RATE BY MODIFIED WESTERGREN [ADDED]2024-08-25 00:00:00* Test Item Value Reference Range Interpretation Comme nts SED RATE BY MODIFIED WESTERG SWETHA (test code = 4537-7) 2 mm/h Richard F AustinC-REACTIVE PROTEIN [ADDED]2024-08-25 00:00:00* Test Item Value Reference Range Interpretation Comme nts C-REACTIVE PROTEIN (test cod e = 1987-5) <3.0 mg/L Richard F AustinHELICOBACTER PYLORI, UREA BREATH [id number] 00:00:00* Test Item Value Reference Range Interpretation Comme nts HELICOBACTER PYLORI, UREA BR EATH TEST (test code = 25065-4) NOT DETECTED Richard F AustinAMYLASE AND LIPASE [ADDED]2024-08-25 00:00:00* Test Item Value Reference Range Interpretation Comme nts AMYLASE (test code = 1798-8) 26 U/L LIPASE (test code = 3040-3) 25 U/L Richard F AustinSED RATE BY MODIFIED WESTERGREN [ADDED]2024-08-25 00:00:00* Test Item Value Reference Range Interpretation Comme nts SED RATE BY MODIFIED WESTERG SWETHA (test code = 4537-7) 2 mm/h Richard F AustinC-REACTIVE PROTEIN [ADDED]2024-08-25 00:00:00* Test Item Value Reference Range Interpretation Comme nts C-REACTIVE PROTEIN (test cod e = 1987-5) <3.0 mg/L Richard F AustinHELICOBACTER PYLORI, UREA BREATH [id number] 00:00:00* Test Item Value Reference Range Interpretation Comme nts HELICOBACTER PYLORI, UREA BR EATH TEST (test code = 60041-9) NOT DETECTED Richard F AustinAMYLASE AND LIPASE [ADDED]2024-08-25 00:00:00* Test Item Value Reference Range Interpretation Comme nts AMYLASE (test code = 1798-8) 26 U/L LIPASE (test code = 3040-3) 25 U/L Richard F AustinSED RATE BY MODIFIED WESTERGREN [ADDED]2024-08-25 00:00:00* Test Item Value Reference Range Interpretation Comme nts SED RATE BY MODIFIED ELIASERG SWETHA (test code = 4537-7) 2 mm/h Richard F AustinC-REACTIVE PROTEIN [ADDED]2024-08-25 00:00:00* Test Item Value Reference Range Interpretation Comme nts C-REACTIVE PROTEIN (test cod e = 1987-5) <3.0 mg/L Richard F AustinHELICOBACTER PYLORI, UREA BREATH [id number] 00:00:00* Test Item Value Reference Range Interpretation Comme nts HELICOBACTER PYLORI, UREA BR EATH TEST (test code = 75784-1) NOT DETECTED Richard F AustinAMYLASE AND LIPASE [ADDED]2024-08-25 00:00:00* Test Item Value Reference Range Interpretation Comme nts AMYLASE (test code = 1798-8) 26 U/L LIPASE (test code = 3040-3) 25 U/L Richard F AustinSED RATE BY MODIFIED WESTERGREN [ADDED]2024-08-25 00:00:00* Test Item Value Reference Range Interpretation Comme nts SED RATE BY MODIFIED WESTERG SWETHA (test code = 4537-7) 2 mm/h Richard F AustinC-REACTIVE PROTEIN [ADDED]2024-08-25 00:00:00* Test Item Value Reference Range Interpretation Comme nts C-REACTIVE PROTEIN (test cod e = 1987-5) <3.0 mg/L Richard F AustinHELICOBACTER PYLORI, UREA BREATH [id number] 00:00:00* Test Item Value Reference Range Interpretation Comme nts HELICOBACTER PYLORI, UREA BR EATH TEST (test code = 64102-1) NOT DETECTED Richard F AustinAMYLASE AND LIPASE [ADDED]2024-08-25 00:00:00* Test Item Value Reference Range Interpretation Comme nts AMYLASE (test code = 1798-8) 26 U/L LIPASE (test code = 3040-3) 25 U/L Richard F AustinSED RATE BY MODIFIED WESTERGREN [ADDED]2024-08-25 00:00:00* Test Item Value Reference Range Interpretation Comme nts SED RATE BY MODIFIED WESTERG SWETHA (test code = 4537-7) 2 mm/h Richard F AustinC-REACTIVE PROTEIN [ADDED]2024-08-25 00:00:00* Test Item Value Reference Range Interpretation Comme nts C-REACTIVE PROTEIN (test cod e = 1988-5) <3.0 mg/L Richard F AustinHELICOBACTER PYLORI, UREA BREATH [id number] 00:00:00* Test Item Value Reference Range Interpretation Comme nts HELICOBACTER PYLORI, UREA BR EATH TEST (test code = 12239-2) NOT DETECTED Richard F AustinAMYLASE AND LIPASE [ADDED]2024-08-25 00:00:00* Test Item Value Reference Range Interpretation Comme nts AMYLASE (test code = 1798-8) 26 U/L LIPASE (test code = 3040-3) 25 U/L Richard F AustinSED RATE BY MODIFIED WESTERGREN [ADDED]2024-08-25 00:00:00* Test Item Value Reference Range Interpretation Comme nts SED RATE BY MODIFIED WESTERG SWETHA (test code = 4537-7) 2 mm/h Richard F AustinC-REACTIVE PROTEIN [ADDED]2024-08-25 00:00:00* Test Item Value Reference Range Interpretation Comme nts C-REACTIVE PROTEIN (test cod e = 1988-5) <3.0 mg/L Richard F AustinHELICOBACTER PYLORI, UREA BREATH [id number] 00:00:00* Test Item Value Reference Range Interpretation Comme nts HELICOBACTER PYLORI, UREA BR EATH TEST (test code = 83160-2) NOT DETECTED Richard F AustinAMYLASE AND LIPASE [ADDED]2024-08-25 00:00:00* Test Item Value Reference Range Interpretation Comme annalisa AMYLASE (test code = 1798-8) 26 U/L LIPASE (test code = 3040-3) 25 U/L Richard ArcosHEMOGLOBIN [id number] 00:00:00* Test Item Value Reference Range Interpretation Comme annalisa HEMOGLOBIN A1c (test code = 4548-4) 5.0 %oftotalHgb Richard ArcosLIPID [id number] 00:00:00* Test Item Value Reference Range Interpretation Comme annalisa CHOLESTEROL, TOTAL (test cod e = 2093-3) 183 mg/dL HDL CHOLESTEROL (test code = 2085-9) 41 mg/dL TRIGLYCERIDES (test code = 2571-8) 69 mg/dL LDL-CHOLESTEROL (test code = 14047-6) 126 mg/dL(calc) CHOL/HDLC RATIO (test code = 9830-1) 4.5 (calc) NON HDL CHOLESTEROL (test code = 32653-4) 142 mg/dL(calc) Richard [id number] 00:00:00* Test Item Value Reference Range Interpretation Comme annalisa TSH (test code = 3016-3) 1.17 mIU/L Richard ArcosCBC (INCLUDES DIFF/PLT)2024-07-11 00:00:00* Test Item Value Reference Range Interpretation Comme annalisa WHITE BLOOD CELL COUNT (test code = 6690-2) 8.4 Thousand/uL RED BLOOD CELL COUNT (test code = 789-8) 4.30 Million/uL HEMOGLOBIN (test code = 718-7) 13.3 g/dL HEMATOCRIT (test code = 4544-3) 40.1 % MCV (test code = 787-2) 93.3 fL MCH (test code = 785-6) 30.9 pg MCHC (test code = 786-4) 33.2 g/dL RDW (test code = 788-0) 12.2 % PLATELET COUNT (test code = 777-3) 316 Thousand/uL MPV (test code = 776-5) 10.5 fL ABSOLUTE NEUTROPHILS (test code = 751-8) 5494 cells/uL ABSOLUTE BAND NEUTROPHILS (test code = 10107-1) DNR cells/uL ABSOLUTE METAMYELOCYTES (blossom t code = 00301-5) DNR cells/uL ABSOLUTE MYELOCYTES (test code = 34289-1) DNR cells/uL ABSOLUTE PROMYELOCYTES (test code = 37905-9) DNR cells/uL ABSOLUTE LYMPHOCYTES (test code = 731-0) 2066 cells/uL ABSOLUTE MONOCYTES (test cod e = 742-7) 580 cells/uL ABSOLUTE EOSINOPHILS (test code = 711-2) 176 cells/uL ABSOLUTE BASOPHILS (test cod e = 704-7) 84 cells/uL ABSOLUTE BLASTS (test code = 38551-3) DNR cells/uL ABSOLUTE NUCLEATED RBC (test code = 61943-8) DNR cells/uL NEUTROPHILS (test code = 770-8) 65.4 % BAND NEUTROPHILS (test code = 764-1) DNR % METAMYELOCYTES (test code = 740-1) DNR % MYELOCYTES (test code = 749-2) DNR % PROMYELOCYTES (test code = 783-1) DNR % LYMPHOCYTES (test code = 736-9) 24.6 % REACTIVE LYMPHOCYTES (test code = 51462-5) DNR % MONOCYTES (test code = 5905-5) 6.9 % EOSINOPHILS (test code = 713-8) 2.1 % BASOPHILS (test code = 706-2) 1.0 % BLASTS (test code = 709-6) DNR % NUCLEATED RBC (test code = 56398-8) DNR /100WBC COMMENT(S) (test code = 8251-1) DNR Richard Lorena IsrraelCOMPREHENSIVE METABOLIC [id number] 00:00:00* Test Item Value Reference Range Interpretation Comme nts GLUCOSE (test code = 2345-7) 91 mg/dL UREA NITROGEN (BUN) (test code = 3094-0) 14 mg/dL CREATININE (test code = 2160-0) 0.80 mg/dL EGFR (test code = 88379-2) 102 mL/min/1.73m2 BUN/CREATININE RATIO (test code = 3097-3) SEE NOTE: (calc) SODIUM (test code = 2951-2) 139 mmol/L POTASSIUM (test code = 2823-3) 4.4 mmol/L CHLORIDE (test code = 2075-0) 107 mmol/L CARBON DIOXIDE (test code = 2027-9) 24 mmol/L CALCIUM (test code = 39957-2) 10.0 mg/dL PROTEIN, TOTAL (test code = 2885-2) 7.0 g/dL ALBUMIN (test code = 1751-7) 4.6 g/dL GLOBULIN (test code = 04334-3) 2.4 g/dL(calc) ALBUMIN/GLOBULIN RATIO (test code = 1759-0) 1.9 (calc) BILIRUBIN, TOTAL (test code = 1975-2) 0.6 mg/dL ALKALINE PHOSPHATASE (test code = 6768-6) 56 U/L AST (test code = 1920-8) 13 U/L ALT (test code = 1742-6) 13 U/L Richard ArcosHEMOGLOBIN [id number] 00:00:00* Test Item Value Reference Range Interpretation Comme annalisa HEMOGLOBIN A1c (test code = 4548-4) 5.0 %oftotalHgb Richard ArcosLIPID [id number] 00:00:00* Test Item Value Reference Range Interpretation Comme annalisa CHOLESTEROL, TOTAL (test cod e = 3-3) 183 mg/dL HDL CHOLESTEROL (test code = 2084-9) 41 mg/dL TRIGLYCERIDES (test code = 2571-8) 69 mg/dL LDL-CHOLESTEROL (test code = 99925-8) 126 mg/dL(calc) CHOL/HDLC RATIO (test code = 9830-1) 4.5 (calc) NON HDL CHOLESTEROL (test code = 05841-7) 142 mg/dL(calc) Richard [id number] 00:00:00* Test Item Value Reference Range Interpretation Comme annalisa TSH (test code = 3016-3) 1.17 mIU/L Richard ArcosCBC (INCLUDES DIFF/PLT)2024-07-11 00:00:00* Test Item Value Reference Range Interpretation Comme [facility] WHITE BLOOD CELL COUNT (test code = 6690-2) 8.4 Thousand/uL RED BLOOD CELL COUNT (test code = 789-8) 4.30 Million/uL HEMOGLOBIN (test code = 718-7) 13.3 g/dL HEMATOCRIT (test code = 4544-3) 40.1 % MCV (test code = 787-2) 93.3 fL MCH (test code = 785-6) 30.9 pg MCHC (test code = 786-4) 33.2 g/dL RDW (test code = 788-0) 12.2 % PLATELET COUNT (test code = 777-3) 316 Thousand/uL MPV (test code = 776-5) 10.5 fL ABSOLUTE NEUTROPHILS (test code = 751-8) 5494 cells/uL ABSOLUTE BAND NEUTROPHILS (test code = 31879-5) DNR cells/uL ABSOLUTE METAMYELOCYTES (blossom t code = 39011-6) DNR cells/uL ABSOLUTE MYELOCYTES (test code = 79897-4) DNR cells/uL ABSOLUTE PROMYELOCYTES (test code = 32062-4) DNR cells/uL ABSOLUTE LYMPHOCYTES (test code = 731-0) 2066 cells/uL ABSOLUTE MONOCYTES (test cod e = 742-7) 580 cells/uL ABSOLUTE EOSINOPHILS (test code = 711-2) 176 cells/uL ABSOLUTE BASOPHILS (test cod e = 704-7) 84 cells/uL ABSOLUTE BLASTS (test code = 35028-9) DNR cells/uL ABSOLUTE NUCLEATED RBC (test code = 56304-4) DNR cells/uL NEUTROPHILS (test code = 770-8) 65.4 % BAND NEUTROPHILS (test code = 764-1) DNR % METAMYELOCYTES (test code = 740-1) DNR % MYELOCYTES (test code = 749-2) DNR % PROMYELOCYTES (test code = 783-1) DNR % LYMPHOCYTES (test code = 736-9) 24.6 % REACTIVE LYMPHOCYTES (test code = 95142-9) DNR % MONOCYTES (test code = 5905-5) 6.9 % EOSINOPHILS (test code = 713-8) 2.1 % BASOPHILS (test code = 706-2) 1.0 % BLASTS (test code = 709-6) DNR % NUCLEATED RBC (test code = 56389-5) DNR /100WBC COMMENT(S) (test code = 8251-1) DNR Richard ArcosCOMPREHENSIVE METABOLIC [id number] 00:00:00* Test Item Value Reference Range Interpretation Comme nts GLUCOSE (test code = 2345-7) 91 mg/dL UREA NITROGEN (BUN) (test code = 3094-0) 14 mg/dL CREATININE (test code = 2160-0) 0.80 mg/dL EGFR (test code = 02505-9) 102 mL/min/1.73m2 BUN/CREATININE RATIO (test code = 3097-3) SEE NOTE: (calc) SODIUM (test code = 2951-2) 139 mmol/L POTASSIUM (test code = 2823-3) 4.4 mmol/L CHLORIDE (test code = 2075-0) 107 mmol/L CARBON DIOXIDE (test code = 8-9) 24 mmol/L CALCIUM (test code = 00708-1) 10.0 mg/dL PROTEIN, TOTAL (test code = 2885-2) 7.0 g/dL ALBUMIN (test code = 1751-7) 4.6 g/dL GLOBULIN (test code = 41911-9) 2.4 g/dL(calc) ALBUMIN/GLOBULIN RATIO (test code = 1759-0) 1.9 (calc) BILIRUBIN, TOTAL (test code = 1975-2) 0.6 mg/dL ALKALINE PHOSPHATASE (test code = 6768-6) 56 U/L AST (test code = 1920-8) 13 U/L ALT (test code = 1742-6) 13 U/L Richard ArcosHEMOGLOBIN [id number] 00:00:00* Test Item Value Reference Range Interpretation Comme [facility] HEMOGLOBIN A1c (test code = 4548-4) 5.0 %oftotalHgb Richard ArcosLIPID [id number] 00:00:00* Test Item Value Reference Range Interpretation Comme [facility] CHOLESTEROL, TOTAL (test cod e = 2093-3) 183 mg/dL HDL CHOLESTEROL (test code = 2085-9) 41 mg/dL TRIGLYCERIDES (test code = 2571-8) 69 mg/dL LDL-CHOLESTEROL (test code = 83793-3) 126 mg/dL(calc) CHOL/HDLC RATIO (test code = 9830-1) 4.5 (calc) NON HDL CHOLESTEROL (test code = 55816-9) 142 mg/dL(calc) Richard [id number] 00:00:00* Test Item Value Reference Range Interpretation Comme [facility] TSH (test code = 3016-3) 1.17 mIU/L Richard ArcosCBC (INCLUDES DIFF/PLT)2024-07-11 00:00:00* Test Item Value Reference Range Interpretation Comme nts WHITE BLOOD CELL COUNT (test code = 6690-2) 8.4 Thousand/uL RED BLOOD CELL COUNT (test code = 789-8) 4.30 Million/uL HEMOGLOBIN (test code = 718-7) 13.3 g/dL HEMATOCRIT (test code = 4544-3) 40.1 % MCV (test code = 787-2) 93.3 fL MCH (test code = 785-6) 30.9 pg MCHC (test code = 786-4) 33.2 g/dL RDW (test code = 788-0) 12.2 % PLATELET COUNT (test code = 777-3) 316 Thousand/uL MPV (test code = 776-5) 10.5 fL ABSOLUTE NEUTROPHILS (test code = 751-8) 5494 cells/uL ABSOLUTE BAND NEUTROPHILS (test code = 74974-9) DNR cells/uL ABSOLUTE METAMYELOCYTES (blossom t code = 19584-6) DNR cells/uL ABSOLUTE MYELOCYTES (test code = 46686-6) DNR cells/uL ABSOLUTE PROMYELOCYTES (test code = 66380-3) DNR cells/uL ABSOLUTE LYMPHOCYTES (test code = 731-0) 2066 cells/uL ABSOLUTE MONOCYTES (test cod e = 742-7) 580 cells/uL ABSOLUTE EOSINOPHILS (test code = 711-2) 176 cells/uL ABSOLUTE BASOPHILS (test cod e = 704-7) 84 cells/uL ABSOLUTE BLASTS (test code = 14216-7) DNR cells/uL ABSOLUTE NUCLEATED RBC (test code = 64161-2) DNR cells/uL NEUTROPHILS (test code = 770-8) 65.4 % BAND NEUTROPHILS (test code = 764-1) DNR % METAMYELOCYTES (test code = 740-1) DNR % MYELOCYTES (test code = 749-2) DNR % PROMYELOCYTES (test code = 783-1) DNR % LYMPHOCYTES (test code = 736-9) 24.6 % REACTIVE LYMPHOCYTES (test code = 02771-5) DNR % MONOCYTES (test code = 5905-5) 6.9 % EOSINOPHILS (test code = 713-8) 2.1 % BASOPHILS (test code = 706-2) 1.0 % BLASTS (test code = 709-6) DNR % NUCLEATED RBC (test code = 95843-5) DNR /100WBC COMMENT(S) (test code = 8251-1) DNR Richard ArcosCOMPREHENSIVE METABOLIC [id number] 00:00:00* Test Item Value Reference Range Interpretation Comme nts GLUCOSE (test code = 2345-7) 91 mg/dL UREA NITROGEN (BUN) (test code = 3094-0) 14 mg/dL CREATININE (test code = 2160-0) 0.80 mg/dL EGFR (test code = 53806-8) 102 mL/min/1.73m2 BUN/CREATININE RATIO (test code = 3097-3) SEE NOTE: (calc) SODIUM (test code = 2951-2) 139 mmol/L POTASSIUM (test code = 2823-3) 4.4 mmol/L CHLORIDE (test code = 2075-0) 107 mmol/L CARBON DIOXIDE (test code = 2027-9) 24 mmol/L CALCIUM (test code = 82241-7) 10.0 mg/dL PROTEIN, TOTAL (test code = 2885-2) 7.0 g/dL ALBUMIN (test code = 1751-7) 4.6 g/dL GLOBULIN (test code = 29569-8) 2.4 g/dL(calc) ALBUMIN/GLOBULIN RATIO (test code = 1759-0) 1.9 (calc) BILIRUBIN, TOTAL (test code = 1975-2) 0.6 mg/dL ALKALINE PHOSPHATASE (test code = 6768-6) 56 U/L AST (test code = 1920-8) 13 U/L ALT (test code = 1742-6) 13 U/L Richard ArcosHEMOGLOBIN [id number] 00:00:00* Test Item Value Reference Range Interpretation Comme annalisa HEMOGLOBIN A1c (test code = 4548-4) 5.0 %oftotalHgb Richard ArcosLIPID [id number] 00:00:00* Test Item Value Reference Range Interpretation Comme nts CHOLESTEROL, TOTAL (test cod e = 2093-3) 183 mg/dL HDL CHOLESTEROL (test code = 2085-9) 41 mg/dL TRIGLYCERIDES (test code = 2571-8) 69 mg/dL LDL-CHOLESTEROL (test code = 53929-1) 126 mg/dL(calc) CHOL/HDLC RATIO (test code = 9830-1) 4.5 (calc) NON HDL CHOLESTEROL (test code = 20023-1) 142 mg/dL(calc) Richard [id number] 00:00:00* Test Item Value Reference Range Interpretation Comme nts TSH (test code = 3016-3) 1.17 mIU/L Richard ArcosCBC (INCLUDES DIFF/PLT)2024-07-11 00:00:00* Test Item Value Reference Range Interpretation Comme nts WHITE BLOOD CELL COUNT (test code = 6690-2) 8.4 Thousand/uL RED BLOOD CELL COUNT (test code = 789-8) 4.30 Million/uL HEMOGLOBIN (test code = 718-7) 13.3 g/dL HEMATOCRIT (test code = 4544-3) 40.1 % MCV (test code = 787-2) 93.3 fL MCH (test code = 785-6) 30.9 pg MCHC (test code = 786-4) 33.2 g/dL RDW (test code = 788-0) 12.2 % PLATELET COUNT (test code = 777-3) 316 Thousand/uL MPV (test code = 776-5) 10.5 fL ABSOLUTE NEUTROPHILS (test code = 751-8) 5494 cells/uL ABSOLUTE BAND NEUTROPHILS (test code = 58318-2) DNR cells/uL ABSOLUTE METAMYELOCYTES (blossom t code = 11015-4) DNR cells/uL ABSOLUTE MYELOCYTES (test code = 25096-8) DNR cells/uL ABSOLUTE PROMYELOCYTES (test code = 94037-1) DNR cells/uL ABSOLUTE LYMPHOCYTES (test code = 731-0) 2066 cells/uL ABSOLUTE MONOCYTES (test cod e = 742-7) 580 cells/uL ABSOLUTE EOSINOPHILS (test code = 711-2) 176 cells/uL ABSOLUTE BASOPHILS (test cod e = 704-7) 84 cells/uL ABSOLUTE BLASTS (test code = 92511-7) DNR cells/uL ABSOLUTE NUCLEATED RBC (test code = 15635-0) DNR cells/uL NEUTROPHILS (test code = 770-8) 65.4 % BAND NEUTROPHILS (test code = 764-1) DNR % METAMYELOCYTES (test code = 740-1) DNR % MYELOCYTES (test code = 749-2) DNR % PROMYELOCYTES (test code = 783-1) DNR % LYMPHOCYTES (test code = 736-9) 24.6 % REACTIVE LYMPHOCYTES (test code = 67309-9) DNR % MONOCYTES (test code = 5905-5) 6.9 % EOSINOPHILS (test code = 713-8) 2.1 % BASOPHILS (test code = 706-2) 1.0 % BLASTS (test code = 709-6) DNR % NUCLEATED RBC (test code = 21812-6) DNR /100WBC COMMENT(S) (test code = 8251-1) DNR Richard ArcosCOMPREHENSIVE METABOLIC [id number] 00:00:00* Test Item Value Reference Range Interpretation Comme nts GLUCOSE (test code = 2345-7) 91 mg/dL UREA NITROGEN (BUN) (test code = 3094-0) 14 mg/dL CREATININE (test code = 2160-0) 0.80 mg/dL EGFR (test code = 08987-7) 102 mL/min/1.73m2 BUN/CREATININE RATIO (test code = 3097-3) SEE NOTE: (calc) SODIUM (test code = 2951-2) 139 mmol/L POTASSIUM (test code = 2823-3) 4.4 mmol/L CHLORIDE (test code = 2075-0) 107 mmol/L CARBON DIOXIDE (test code = 2027-9) 24 mmol/L CALCIUM (test code = 13950-4) 10.0 mg/dL PROTEIN, TOTAL (test code = 2885-2) 7.0 g/dL ALBUMIN (test code = 1751-7) 4.6 g/dL GLOBULIN (test code = 38358-2) 2.4 g/dL(calc) ALBUMIN/GLOBULIN RATIO (test code = 1759-0) 1.9 (calc) BILIRUBIN, TOTAL (test code = 1975-2) 0.6 mg/dL ALKALINE PHOSPHATASE (test code = 6768-6) 56 U/L AST (test code = 1920-8) 13 U/L ALT (test code = 1742-6) 13 U/L Richard ArcosHEMOGLOBIN [id number] 00:00:00* Test Item Value Reference Range Interpretation Comme annalisa HEMOGLOBIN A1c (test code = 4548-4) 5.0 %oftotalHgb Richard ArcosLIPID [id number] 00:00:00* Test Item Value Reference Range Interpretation Comme annalisa CHOLESTEROL, TOTAL (test cod e = 2093-3) 183 mg/dL HDL CHOLESTEROL (test code = 2085-9) 41 mg/dL TRIGLYCERIDES (test code = 2571-8) 69 mg/dL LDL-CHOLESTEROL (test code = 22707-5) 126 mg/dL(calc) CHOL/HDLC RATIO (test code = 9830-1) 4.5 (calc) NON HDL CHOLESTEROL (test code = 13969-4) 142 mg/dL(calc) Richard [id number] 00:00:00* Test Item Value Reference Range Interpretation Comme annalisa TSH (test code = 3016-3) 1.17 mIU/L Richard ArcosCBC (INCLUDES DIFF/PLT)2024-07-11 00:00:00* Test Item Value Reference Range Interpretation Comme annalisa WHITE BLOOD CELL COUNT (test code = 6690-2) 8.4 Thousand/uL RED BLOOD CELL COUNT (test code = 789-8) 4.30 Million/uL HEMOGLOBIN (test code = 718-7) 13.3 g/dL HEMATOCRIT (test code = 4544-3) 40.1 % MCV (test code = 787-2) 93.3 fL MCH (test code = 785-6) 30.9 pg MCHC (test code = 786-4) 33.2 g/dL RDW (test code = 788-0) 12.2 % PLATELET COUNT (test code = 777-3) 316 Thousand/uL MPV (test code = 776-5) 10.5 fL ABSOLUTE NEUTROPHILS (test code = 751-8) 5494 cells/uL ABSOLUTE BAND NEUTROPHILS (test code = 06076-0) DNR cells/uL ABSOLUTE METAMYELOCYTES (blossom t code = 00135-5) DNR cells/uL ABSOLUTE MYELOCYTES (test code = 11517-2) DNR cells/uL ABSOLUTE PROMYELOCYTES (test code = 05165-9) DNR cells/uL ABSOLUTE LYMPHOCYTES (test code = 731-0) 2066 cells/uL ABSOLUTE MONOCYTES (test cod e = 742-7) 580 cells/uL ABSOLUTE EOSINOPHILS (test code = 711-2) 176 cells/uL ABSOLUTE BASOPHILS (test cod e = 704-7) 84 cells/uL ABSOLUTE BLASTS (test code = 11268-7) DNR cells/uL ABSOLUTE NUCLEATED RBC (test code = 12092-1) DNR cells/uL NEUTROPHILS (test code = 770-8) 65.4 % BAND NEUTROPHILS (test code = 764-1) DNR % METAMYELOCYTES (test code = 740-1) DNR % MYELOCYTES (test code = 749-2) DNR % PROMYELOCYTES (test code = 783-1) DNR % LYMPHOCYTES (test code = 736-9) 24.6 % REACTIVE LYMPHOCYTES (test code = 73766-7) DNR % MONOCYTES (test code = 5905-5) 6.9 % EOSINOPHILS (test code = 713-8) 2.1 % BASOPHILS (test code = 706-2) 1.0 % BLASTS (test code = 709-6) DNR % NUCLEATED RBC (test code = 92674-7) DNR /100WBC COMMENT(S) (test code = 8251-1) DNR Richard F AustinCOMPREHENSIVE METABOLIC [id number] 00:00:00* Test Item Value Reference Range Interpretation Comme nts GLUCOSE (test code = 2345-7) 91 mg/dL UREA NITROGEN (BUN) (test code = 3094-0) 14 mg/dL CREATININE (test code = 2160-0) 0.80 mg/dL EGFR (test code = 85757-2) 102 mL/min/1.73m2 BUN/CREATININE RATIO (test code = 3097-3) SEE NOTE: (calc) SODIUM (test code = 2951-2) 139 mmol/L POTASSIUM (test code = 2823-3) 4.4 mmol/L CHLORIDE (test code = 2075-0) 107 mmol/L CARBON DIOXIDE (test code = 8-9) 24 mmol/L CALCIUM (test code = 76396-8) 10.0 mg/dL PROTEIN, TOTAL (test code = 2885-2) 7.0 g/dL ALBUMIN (test code = 1751-7) 4.6 g/dL GLOBULIN (test code = 17108-4) 2.4 g/dL(calc) ALBUMIN/GLOBULIN RATIO (test code = 1759-0) 1.9 (calc) BILIRUBIN, TOTAL (test code = 1975-2) 0.6 mg/dL ALKALINE PHOSPHATASE (test code = 6768-6) 56 U/L AST (test code = 1920-8) 13 U/L ALT (test code = 1742-6) 13 U/L Richard ArcosHEMOGLOBIN [id number] 00:00:00* Test Item Value Reference Range Interpretation Comme annalisa HEMOGLOBIN A1c (test code = 4548-4) 5.0 %oftotalHgb Richard ArcosLIPID [id number] 00:00:00* Test Item Value Reference Range Interpretation Comme annalisa CHOLESTEROL, TOTAL (test cod e = 2093-3) 183 mg/dL HDL CHOLESTEROL (test code = 2085-9) 41 mg/dL TRIGLYCERIDES (test code = 2571-8) 69 mg/dL LDL-CHOLESTEROL (test code = 56632-2) 126 mg/dL(calc) CHOL/HDLC RATIO (test code = 9830-1) 4.5 (calc) NON HDL CHOLESTEROL (test code = 84344-8) 142 mg/dL(calc) Richard [id number] 00:00:00* Test Item Value Reference Range Interpretation Comme [facility] TSH (test code = 3016-3) 1.17 mIU/L Richard ArcosCBC (INCLUDES DIFF/PLT)2024-07-11 00:00:00* Test Item Value Reference Range Interpretation Comme [facility] WHITE BLOOD CELL COUNT (test code = 6690-2) 8.4 Thousand/uL RED BLOOD CELL COUNT (test code = 789-8) 4.30 Million/uL HEMOGLOBIN (test code = 718-7) 13.3 g/dL HEMATOCRIT (test code = 4544-3) 40.1 % MCV (test code = 787-2) 93.3 fL MCH (test code = 785-6) 30.9 pg MCHC (test code = 786-4) 33.2 g/dL RDW (test code = 788-0) 12.2 % PLATELET COUNT (test code = 777-3) 316 Thousand/uL MPV (test code = 776-5) 10.5 fL ABSOLUTE NEUTROPHILS (test code = 751-8) 5494 cells/uL ABSOLUTE BAND NEUTROPHILS (test code = 79618-9) DNR cells/uL ABSOLUTE METAMYELOCYTES (blossom t code = 95427-9) DNR cells/uL ABSOLUTE MYELOCYTES (test code = 86545-7) DNR cells/uL ABSOLUTE PROMYELOCYTES (test code = 67744-6) DNR cells/uL ABSOLUTE LYMPHOCYTES (test code = 731-0) 2066 cells/uL ABSOLUTE MONOCYTES (test cod e = 742-7) 580 cells/uL ABSOLUTE EOSINOPHILS (test code = 711-2) 176 cells/uL ABSOLUTE BASOPHILS (test cod e = 704-7) 84 cells/uL ABSOLUTE BLASTS (test code = 31220-8) DNR cells/uL ABSOLUTE NUCLEATED RBC (test code = 26240-5) DNR cells/uL NEUTROPHILS (test code = 770-8) 65.4 % BAND NEUTROPHILS (test code = 764-1) DNR % METAMYELOCYTES (test code = 740-1) DNR % MYELOCYTES (test code = 749-2) DNR % PROMYELOCYTES (test code = 783-1) DNR % LYMPHOCYTES (test code = 736-9) 24.6 % REACTIVE LYMPHOCYTES (test code = 34856-9) DNR % MONOCYTES (test code = 5905-5) 6.9 % EOSINOPHILS (test code = 713-8) 2.1 % BASOPHILS (test code = 706-2) 1.0 % BLASTS (test code = 709-6) DNR % NUCLEATED RBC (test code = 88895-8) DNR /100WBC COMMENT(S) (test code = 8251-1) DNR Richard Carrillo IsrraelCOMPREHENSIVE METABOLIC [id number] 00:00:00* Test Item Value Reference Range Interpretation Comme nts GLUCOSE (test code = 2345-7) 91 mg/dL UREA NITROGEN (BUN) (test code = 3094-0) 14 mg/dL CREATININE (test code = 2160-0) 0.80 mg/dL EGFR (test code = 75326-9) 102 mL/min/1.73m2 BUN/CREATININE RATIO (test code = 3097-3) SEE NOTE: (calc) SODIUM (test code = 2951-2) 139 mmol/L POTASSIUM (test code = 2823-3) 4.4 mmol/L CHLORIDE (test code = 2075-0) 107 mmol/L CARBON DIOXIDE (test code = 2027-9) 24 mmol/L CALCIUM (test code = 45426-5) 10.0 mg/dL PROTEIN, TOTAL (test code = 2885-2) 7.0 g/dL ALBUMIN (test code = 1751-7) 4.6 g/dL GLOBULIN (test code = 74405-8) 2.4 g/dL(calc) ALBUMIN/GLOBULIN RATIO (test code = 1759-0) 1.9 (calc) BILIRUBIN, TOTAL (test code = 1975-2) 0.6 mg/dL ALKALINE PHOSPHATASE (test code = 6768-6) 56 U/L AST (test code = 1920-8) 13 U/L ALT (test code = 1742-6) 13 U/L Richard ArcosHEMOGLOBIN [id number] 00:00:00* Test Item Value Reference Range Interpretation Comme annalisa HEMOGLOBIN A1c (test code = 4548-4) 5.0 %oftotalHgb Richard ArcosLIPID [id number] 00:00:00* Test Item Value Reference Range Interpretation Comme annalisa CHOLESTEROL, TOTAL (test cod e = 2093-3) 183 mg/dL HDL CHOLESTEROL (test code = 2085-9) 41 mg/dL TRIGLYCERIDES (test code = 2571-8) 69 mg/dL LDL-CHOLESTEROL (test code = 78109-0) 126 mg/dL(calc) CHOL/HDLC RATIO (test code = 9830-1) 4.5 (calc) NON HDL CHOLESTEROL (test code = 00675-8) 142 mg/dL(calc) Richard [id number] 00:00:00* Test Item Value Reference Range Interpretation Comme [facility] TSH (test code = 3016-3) 1.17 mIU/L Richard ArcosCBC (INCLUDES DIFF/PLT)2024-07-11 00:00:00* Test Item Value Reference Range Interpretation Comme [facility] WHITE BLOOD CELL COUNT (test code = 6690-2) 8.4 Thousand/uL RED BLOOD CELL COUNT (test code = 789-8) 4.30 Million/uL HEMOGLOBIN (test code = 718-7) 13.3 g/dL HEMATOCRIT (test code = 4544-3) 40.1 % MCV (test code = 787-2) 93.3 fL MCH (test code = 785-6) 30.9 pg MCHC (test code = 786-4) 33.2 g/dL RDW (test code = 788-0) 12.2 % PLATELET COUNT (test code = 777-3) 316 Thousand/uL MPV (test code = 776-5) 10.5 fL ABSOLUTE NEUTROPHILS (test code = 751-8) 5494 cells/uL ABSOLUTE BAND NEUTROPHILS (test code = 74602-3) DNR cells/uL ABSOLUTE METAMYELOCYTES (blossom t code = 30945-7) DNR cells/uL ABSOLUTE MYELOCYTES (test code = 22547-6) DNR cells/uL ABSOLUTE PROMYELOCYTES (test code = 52472-3) DNR cells/uL ABSOLUTE LYMPHOCYTES (test code = 731-0) 2066 cells/uL ABSOLUTE MONOCYTES (test cod e = 742-7) 580 cells/uL ABSOLUTE EOSINOPHILS (test code = 711-2) 176 cells/uL ABSOLUTE BASOPHILS (test cod e = 704-7) 84 cells/uL ABSOLUTE BLASTS (test code = 23984-8) DNR cells/uL ABSOLUTE NUCLEATED RBC (test code = 88527-7) DNR cells/uL NEUTROPHILS (test code = 770-8) 65.4 % BAND NEUTROPHILS (test code = 764-1) DNR % METAMYELOCYTES (test code = 740-1) DNR % MYELOCYTES (test code = 749-2) DNR % PROMYELOCYTES (test code = 783-1) DNR % LYMPHOCYTES (test code = 736-9) 24.6 % REACTIVE LYMPHOCYTES (test code = 06160-1) DNR % MONOCYTES (test code = 5905-5) 6.9 % EOSINOPHILS (test code = 713-8) 2.1 % BASOPHILS (test code = 706-2) 1.0 % BLASTS (test code = 709-6) DNR % NUCLEATED RBC (test code = 05167-7) DNR /100WBC COMMENT(S) (test code = 8251-1) DNR Richard F AustinCOMPREHENSIVE METABOLIC [id number] 00:00:00* Test Item Value Reference Range Interpretation Comme nts GLUCOSE (test code = 2345-7) 91 mg/dL UREA NITROGEN (BUN) (test code = 3094-0) 14 mg/dL CREATININE (test code = 2160-0) 0.80 mg/dL EGFR (test code = 41979-4) 102 mL/min/1.73m2 BUN/CREATININE RATIO (test code = 3097-3) SEE NOTE: (calc) SODIUM (test code = 2951-2) 139 mmol/L POTASSIUM (test code = 2823-3) 4.4 mmol/L CHLORIDE (test code = 2075-0) 107 mmol/L CARBON DIOXIDE (test code = 2027-9) 24 mmol/L CALCIUM (test code = 46965-8) 10.0 mg/dL PROTEIN, TOTAL (test code = 2885-2) 7.0 g/dL ALBUMIN (test code = 1751-7) 4.6 g/dL GLOBULIN (test code = 94338-8) 2.4 g/dL(calc) ALBUMIN/GLOBULIN RATIO (test code = 1759-0) 1.9 (calc) BILIRUBIN, TOTAL (test code = 1975-2) 0.6 mg/dL ALKALINE PHOSPHATASE (test code = 6768-6) 56 U/L AST (test code = 1920-8) 13 U/L ALT (test code = 1742-6) 13 U/L Richard ArcosHEMOGLOBIN [id number] 00:00:00* Test Item Value Reference Range Interpretation Comme annalisa HEMOGLOBIN A1c (test code = 4548-4) 5.0 %oftotalHgb Richard ArcosLIPID [id number] 00:00:00* Test Item Value Reference Range Interpretation Comme [facility] CHOLESTEROL, TOTAL (test cod e = 2093-3) 183 mg/dL HDL CHOLESTEROL (test code = 2085-9) 41 mg/dL TRIGLYCERIDES (test code = 2571-8) 69 mg/dL LDL-CHOLESTEROL (test code = 07513-4) 126 mg/dL(calc) CHOL/HDLC RATIO (test code = 9830-1) 4.5 (calc) NON HDL CHOLESTEROL (test code = 92092-0) 142 mg/dL(calc) Richard [id number] 00:00:00* Test Item Value Reference Range Interpretation Comme nts TSH (test code = 3016-3) 1.17 mIU/L Richard ArcosCBC (INCLUDES DIFF/PLT)2024-07-11 00:00:00* Test Item Value Reference Range Interpretation Comme nts WHITE BLOOD CELL COUNT (test code = 6690-2) 8.4 Thousand/uL RED BLOOD CELL COUNT (test code = 789-8) 4.30 Million/uL HEMOGLOBIN (test code = 718-7) 13.3 g/dL HEMATOCRIT (test code = 4544-3) 40.1 % MCV (test code = 787-2) 93.3 fL MCH (test code = 785-6) 30.9 pg MCHC (test code = 786-4) 33.2 g/dL RDW (test code = 788-0) 12.2 % PLATELET COUNT (test code = 777-3) 316 Thousand/uL MPV (test code = 776-5) 10.5 fL ABSOLUTE NEUTROPHILS (test code = 751-8) 5494 cells/uL ABSOLUTE BAND NEUTROPHILS (test code = 47641-4) DNR cells/uL ABSOLUTE METAMYELOCYTES (blossom t code = 62385-3) DNR cells/uL ABSOLUTE MYELOCYTES (test code = 76864-7) DNR cells/uL ABSOLUTE PROMYELOCYTES (test code = 52279-1) DNR cells/uL ABSOLUTE LYMPHOCYTES (test code = 731-0) 2066 cells/uL ABSOLUTE MONOCYTES (test cod e = 742-7) 580 cells/uL ABSOLUTE EOSINOPHILS (test code = 711-2) 176 cells/uL ABSOLUTE BASOPHILS (test cod e = 704-7) 84 cells/uL ABSOLUTE BLASTS (test code = 37133-4) DNR cells/uL ABSOLUTE NUCLEATED RBC (test code = 83786-6) DNR cells/uL NEUTROPHILS (test code = 770-8) 65.4 % BAND NEUTROPHILS (test code = 764-1) DNR % METAMYELOCYTES (test code = 740-1) DNR % MYELOCYTES (test code = 749-2) DNR % PROMYELOCYTES (test code = 783-1) DNR % LYMPHOCYTES (test code = 736-9) 24.6 % REACTIVE LYMPHOCYTES (test code = 85542-8) DNR % MONOCYTES (test code = 5905-5) 6.9 % EOSINOPHILS (test code = 713-8) 2.1 % BASOPHILS (test code = 706-2) 1.0 % BLASTS (test code = 709-6) DNR % NUCLEATED RBC (test code = 95239-2) DNR /100WBC COMMENT(S) (test code = 8251-1) DNR Richard ArcosCOMPREHENSIVE METABOLIC [id number] 00:00:00* Test Item Value Reference Range Interpretation Comme nts GLUCOSE (test code = 2345-7) 91 mg/dL UREA NITROGEN (BUN) (test code = 3094-0) 14 mg/dL CREATININE (test code = 2160-0) 0.80 mg/dL EGFR (test code = 40889-0) 102 mL/min/1.73m2 BUN/CREATININE RATIO (test code = 3097-3) SEE NOTE: (calc) SODIUM (test code = 2951-2) 139 mmol/L POTASSIUM (test code = 2823-3) 4.4 mmol/L CHLORIDE (test code = 2075-0) 107 mmol/L CARBON DIOXIDE (test code = 2027-9) 24 mmol/L CALCIUM (test code = 68220-5) 10.0 mg/dL PROTEIN, TOTAL (test code = 2885-2) 7.0 g/dL ALBUMIN (test code = 1751-7) 4.6 g/dL GLOBULIN (test code = 31977-5) 2.4 g/dL(calc) ALBUMIN/GLOBULIN RATIO (test code = 1759-0) 1.9 (calc) BILIRUBIN, TOTAL (test code = 1975-2) 0.6 mg/dL ALKALINE PHOSPHATASE (test code = 6768-6) 56 U/L AST (test code = 1920-8) 13 U/L ALT (test code = 1742-6) 13 U/L Richard ArcosHEMOGLOBIN [id number] 00:00:00* Test Item Value Reference Range Interpretation Comme nts HEMOGLOBIN A1c (test code = 4548-4) 5.0 %oftotalHgb Richard ArcosLIPID [id number] 00:00:00* Test Item Value Reference Range Interpretation Comme nts CHOLESTEROL, TOTAL (test cod e = 2093-3) 183 mg/dL HDL CHOLESTEROL (test code = 2085-9) 41 mg/dL TRIGLYCERIDES (test code = 2571-8) 69 mg/dL LDL-CHOLESTEROL (test code = 62620-4) 126 mg/dL(calc) CHOL/HDLC RATIO (test code = 9830-1) 4.5 (calc) NON HDL CHOLESTEROL (test code = 53128-9) 142 mg/dL(calc) Richard [id number] 00:00:00* Test Item Value Reference Range Interpretation Comme nts TSH (test code = 3016-3) 1.17 mIU/L Richard ArcosCBC (INCLUDES DIFF/PLT)2024-07-11 00:00:00* Test Item Value Reference Range Interpretation Comme nts WHITE BLOOD CELL COUNT (test code = 6690-2) 8.4 Thousand/uL RED BLOOD CELL COUNT (test code = 789-8) 4.30 Million/uL HEMOGLOBIN (test code = 718-7) 13.3 g/dL HEMATOCRIT (test code = 4544-3) 40.1 % MCV (test code = 787-2) 93.3 fL MCH (test code = 785-6) 30.9 pg MCHC (test code = 786-4) 33.2 g/dL RDW (test code = 788-0) 12.2 % PLATELET COUNT (test code = 777-3) 316 Thousand/uL MPV (test code = 776-5) 10.5 fL ABSOLUTE NEUTROPHILS (test code = 751-8) 5494 cells/uL ABSOLUTE BAND NEUTROPHILS (test code = 91732-8) DNR cells/uL ABSOLUTE METAMYELOCYTES (blossom t code = 90876-1) DNR cells/uL ABSOLUTE MYELOCYTES (test code = 52184-5) DNR cells/uL ABSOLUTE PROMYELOCYTES (test code = 04273-9) DNR cells/uL ABSOLUTE LYMPHOCYTES (test code = 731-0) 2066 cells/uL ABSOLUTE MONOCYTES (test cod e = 742-7) 580 cells/uL ABSOLUTE EOSINOPHILS (test code = 711-2) 176 cells/uL ABSOLUTE BASOPHILS (test cod e = 704-7) 84 cells/uL ABSOLUTE BLASTS (test code = 90995-7) DNR cells/uL ABSOLUTE NUCLEATED RBC (test code = 96553-1) DNR cells/uL NEUTROPHILS (test code = 770-8) 65.4 % BAND NEUTROPHILS (test code = 764-1) DNR % METAMYELOCYTES (test code = 740-1) DNR % MYELOCYTES (test code = 749-2) DNR % PROMYELOCYTES (test code = 783-1) DNR % LYMPHOCYTES (test code = 736-9) 24.6 % REACTIVE LYMPHOCYTES (test code = 89303-0) DNR % MONOCYTES (test code = 5905-5) 6.9 % EOSINOPHILS (test code = 713-8) 2.1 % BASOPHILS (test code = 706-2) 1.0 % BLASTS (test code = 709-6) DNR % NUCLEATED RBC (test code = 00944-3) DNR /100WBC COMMENT(S) (test code = 8251-1) DNR Richard F IsrraelCOMPREHENSIVE METABOLIC [id number] 00:00:00* Test Item Value Reference Range Interpretation Comme nts GLUCOSE (test code = 2345-7) 91 mg/dL UREA NITROGEN (BUN) (test code = 3094-0) 14 mg/dL CREATININE (test code = 2160-0) 0.80 mg/dL EGFR (test code = 39300-6) 102 mL/min/1.73m2 BUN/CREATININE RATIO (test code = 3097-3) SEE NOTE: (calc) SODIUM (test code = 2951-2) 139 mmol/L POTASSIUM (test code = 2823-3) 4.4 mmol/L CHLORIDE (test code = 2075-0) 107 mmol/L CARBON DIOXIDE (test code = 2027-9) 24 mmol/L CALCIUM (test code = 12807-4) 10.0 mg/dL PROTEIN, TOTAL (test code = 2885-2) 7.0 g/dL ALBUMIN (test code = 1751-7) 4.6 g/dL GLOBULIN (test code = 32751-4) 2.4 g/dL(calc) ALBUMIN/GLOBULIN RATIO (test code = 1759-0) 1.9 (calc) BILIRUBIN, TOTAL (test code = 1975-2) 0.6 mg/dL ALKALINE PHOSPHATASE (test code = 6768-6) 56 U/L AST (test code = 1920-8) 13 U/L ALT (test code = 1742-6) 13 U/L Richard Carrillo AustinPOCT [id number] 20:17:00* Test Item Value Reference Range Interpretation Comme nts POCT PREG (test code = 1605) Negative On board controls acceptable with C Line (test code = 3574) Yes POCT PREG LOT # (test code = 3575) POCT PREG TEST DATE ( test code = 3576) [id number] 20:17:00* Test Item Value Reference Range Interpretation Comme nts POCT PREG (test code = 1605) Negative On board controls acceptable with C Line (test code = 3574) Yes POCT PREG LOT # (test code = 3575) POCT PREG TEST DATE ( test code = 3576) [facility], THIRD [id number] 05:52:53* Test Item Value Reference Range Interpretation Comme nts TSH, THIRD GENERATION (test code = 2821) 1.370 UIU/ML 0.400-4.100 COMPREHENSIVE METABOLIC [id number] 03:38:28* Test Item Value Reference Range Interpretation Comme nts GLUCOSE (test code = 2217) 95 MG/DL 70-99 BUN (test code = 2208) 10 MG/DL 6-20 CREATININE (test code = 2214) 0.95 MG/DL 0.60-1.30 eGFR (2020 CKD-EPI) (test code = 13241) 84 ML/MIN/1.73 >60 CALC BUN/CREAT (test code = 2235) 11 RATIO 6-28 SODIUM (test code = 2231) 143 MEQ/L 133-146 POTASSIUM (test code = 2228) 4.4 MEQ/L 3.5-5.4 CHLORIDE (test code = 2215) 106 MEQ/L 95-107 CARBON DIOXIDE (test code = 2206) 26 MEQ/L 19-31 CALCIUM (test code = 2209) 9.9 MG/DL 8.5-10.5 PROTEIN, TOTAL (test code = 2229) 7.1 G/DL 6.1-8.3 ALBUMIN (test code = 2201) 4.7 G/DL 3.5-5.2 CALC GLOBULIN (test code = 2240) 2.4 G/DL 1.9-3.7 CALC A/G RATIO (test code = 2234) 2.0 RATIO 1.0-2.6 BILIRUBIN, TOTAL (test code = 2207) 0.8 MG/DL See_Comment [Automated me ssage] The system which generated this result transmitted reference range: <=1.2. The reference range was not used to interpret this result as normal/abnormal. ALKALINE PHOSPHATASE (test code = 4) 80 U/L 40-112 AST (test code = 2218) 14 U/L 9-40 ALT (test code = 2219) 9 U/L 5-40 LIPID [id number] 03:38:28* Test Item Value Reference Range Interpretation Comme nts CHOLESTEROL (test code = 2210) 204 MG/DL <200 H TRIGLYCERIDES (test code = 2232) 91 MG/DL <150 HDL CHOLESTEROL (test code = 2220) 36 MG/DL >39 L CALC LDL CHOL (test code = 7) 148 MG/DL <100 H NOTE: CALCULATED LDL IS BASED ON JOSE RAMON-AGEE METHOD WHICHINCLUDES ADJUSTABLE TRIGLYCERIDE:VLDL CHOLESTEROL RATIO.THIS FACTOR VARIES BY MEASURED TRIGLYCERIDE AND NON-HDLCHOLESTEROL CONCENTRATIONS WITH INCREASED CALCULATED LDL SEENIN HIGHER TRIGLYCERIDE OR LOWER NON-HDL SPECIMENS. FOR MOREINFORMATION, SEE CLIENT ANNOUNCEMENT AT [email or web address] RISK RATIO LDL/HDL (test code = 2238) 4.11 RATIO <3.22 H HEMOGLOBIN [id number] 02:52:16* Test Item Value Reference Range Interpretation Comme nts HEMOGLOBIN A1c (test code = 46055) 4.9 % 4.2-5.6 UNLESS OTHERWISE INDICATED, ALL TESTING PERFORMED AT [facility] [address] [place] [address], [place] [address] OPERATIONS AND MAINTENANCE TECHNICAN: FAHAD RUANO M.D. CLIA NUMBER [id number] [facility] [place]. [id number] CBC W/AUTO DIFF WITH [id number] 01:58:08* Test Item Value Reference Range Interpretation [...] = 1065) 0.0 /100 WBC'S See_Comment [Automated [employer]] The system which generated this result [...] 0.00-0.10 ABS NUCLEATED RBCS (test code = 87692) 0.00 K/UL 0.00-0.11 TSH, THIRD [id number] 00:00:00* Test Item Value Reference Range Interpretation Comme nts TSH, THIRD GENERATION (test code = 2821) 1.370 UIU/ML Richard Carrillo AustinHEMOGLOBIN [id number] 00:00:00* Test Item Value Reference Range Interpretation Comme nts HEMOGLOBIN A1c (test code = 80618) 4.9 % Richard ArcosCBC W/AUTO [id number] 00:00:00* Test Item Value Reference Range Interpretation [...] ABS NUCLEATED RBCS (test cod e = 98531) 0.00 K/UL Richard ArcosCOMPREHENSIVE METABOLIC [id number] 00:00:00* Test Item Value Reference Range Interpretation Comme nts GLUCOSE (test code = 2217) 95 MG/DL BUN (test code = 2208) 10 MG/DL CREATININE (test code = 2214) 0.95 MG/DL eGFR (2020 CKD-EPI) (test co de = 10887) 84 ML/MIN/1.73 CALC BUN/CREAT (test code = [...] code = 2219) 9 U/L Richard ArcosLIPID [id number] 00:00:00* Test Item Value Reference Range Interpretation Comme nts CHOLESTEROL (test code = 2210) 204 MG/DL TRIGLYCERIDES (test code = 2232) 91 MG/DL HDL CHOLESTEROL (test code = 2220) 36 MG/DL CALC LDL CHOL (test code = 2237) 148 MG/DL RISK RATIO LDL/HDL (test cod e = 2238) 4.11 RATIO Richard ArcosTSH, THIRD [id number] 00:00:00* Test Item Value Reference Range Interpretation Comme annalisa TSH, THIRD GENERATION (test code = 2821) 1.370 UIU/ML Richard ArcosHEMOGLOBIN [id number] 00:00:00* Test Item Value Reference Range Interpretation Comme annalisa HEMOGLOBIN A1c (test code = 83598) 4.9 % Richard ArcosCBC W/AUTO [id number] 00:00:00* Test Item Value Reference Range Interpretation [...] ABS NUCLEATED RBCS (test cod e = 42654) 0.00 K/UL Richard ArcosCOMPREHENSIVE METABOLIC [id number] 00:00:00* Test Item Value Reference Range Interpretation Comme nts GLUCOSE (test code = 2217) 95 MG/DL BUN (test code = 2208) 10 MG/DL CREATININE (test code = 2214) 0.95 MG/DL eGFR (2020 CKD-EPI) (test co de = 44193) 84 ML/MIN/1.73 CALC BUN/CREAT (test code = [...] code = 2219) 9 U/L Richard ArcosLIPID [id number] 00:00:00* Test Item Value Reference Range Interpretation Comme nts CHOLESTEROL (test code = 2210) 204 MG/DL TRIGLYCERIDES (test code = 2232) 91 MG/DL HDL CHOLESTEROL (test code = 2220) 36 MG/DL CALC LDL CHOL (test code = 2237) 148 MG/DL RISK RATIO LDL/HDL (test cod e = 2238) 4.11 RATIO Richard ArcosTSH, THIRD [id number] 00:00:00* Test Item Value Reference Range Interpretation Comme annalisa TSH, THIRD GENERATION (test code = 2821) 1.370 UIU/ML Richard ArcosHEMOGLOBIN [id number] 00:00:00* Test Item Value Reference Range Interpretation Comme annalisa HEMOGLOBIN A1c (test code = 26462) 4.9 % Richard ArcosCBC W/AUTO [id number] 00:00:00* Test Item Value Reference Range Interpretation [...] ABS NUCLEATED RBCS (test cod e = 00217) 0.00 K/UL Richard ArcosCOMPREHENSIVE METABOLIC [id number] 00:00:00* Test Item Value Reference Range Interpretation Comme nts GLUCOSE (test code = 2217) 95 MG/DL BUN (test code = 2208) 10 MG/DL CREATININE (test code = 2214) 0.95 MG/DL eGFR (2020 CKD-EPI) (test co de = 69946) 84 ML/MIN/1.73 CALC BUN/CREAT (test code = [...] code = 2219) 9 U/L Richard ArcosLIPID [id number] 00:00:00* Test Item Value Reference Range Interpretation Comme nts CHOLESTEROL (test code = 2210) 204 MG/DL TRIGLYCERIDES (test code = 2232) 91 MG/DL HDL CHOLESTEROL (test code = 2220) 36 MG/DL CALC LDL CHOL (test code = 2237) 148 MG/DL RISK RATIO LDL/HDL (test cod e = 2238) 4.11 RATIO Richard ArcosTSH, THIRD [id number] 00:00:00* Test Item Value Reference Range Interpretation Comme annalisa TSH, THIRD GENERATION (test code = 2821) 1.370 UIU/ML Richard ArcosHEMOGLOBIN [id number] 00:00:00* Test Item Value Reference Range Interpretation Comme nts HEMOGLOBIN A1c (test code = 21088) 4.9 % Richard ArcosCBC W/AUTO [id number] 00:00:00* Test Item Value Reference Range Interpretation [...] ABS NUCLEATED RBCS (test cod e = 59282) 0.00 K/UL Richard F AustinCOMPREHENSIVE METABOLIC [id number] 00:00:00* Test Item Value Reference Range Interpretation Comme nts GLUCOSE (test code = 2217) 95 MG/DL BUN (test code = 2208) 10 MG/DL CREATININE (test code = 2214) 0.95 MG/DL eGFR (2020 CKD-EPI) (test co de = 05783) 84 ML/MIN/1.73 CALC BUN/CREAT (test code = [...] code = 2219) 9 U/L Richard ArcosLIPID [id number] 00:00:00* Test Item Value Reference Range Interpretation Comme nts CHOLESTEROL (test code = 2210) 204 MG/DL TRIGLYCERIDES (test code = 2232) 91 MG/DL HDL CHOLESTEROL (test code = 2220) 36 MG/DL CALC LDL CHOL (test code = 2237) 148 MG/DL RISK RATIO LDL/HDL (test cod e = 2238) 4.11 RATIO Richard ArcosTSH, THIRD [id number] 00:00:00* Test Item Value Reference Range Interpretation Comme annalisa TSH, THIRD GENERATION (test code = 2821) 1.370 UIU/ML Richard ArcosHEMOGLOBIN [id number] 00:00:00* Test Item Value Reference Range Interpretation Comme annalisa HEMOGLOBIN A1c (test code = 04789) 4.9 % Richard ArcosCBC W/AUTO [id number] 00:00:00* Test Item Value Reference Range Interpretation [...] ABS NUCLEATED RBCS (test cod e = 23313) 0.00 K/UL Richard ArcosCOMPREHENSIVE METABOLIC [id number] 00:00:00* Test Item Value Reference Range Interpretation Comme nts GLUCOSE (test code = 2217) 95 MG/DL BUN (test code = 2208) 10 MG/DL CREATININE (test code = 2214) 0.95 MG/DL eGFR (2020 CKD-EPI) (test co de = 14639) 84 ML/MIN/1.73 CALC BUN/CREAT (test code = [...] (test code = 2219) 9 U/L Richard Carrillo IsrraelLIPID [id number] 00:00:00* Test Item Value Reference Range Interpretation Comme nts CHOLESTEROL (test code = 2210) 204 MG/DL TRIGLYCERIDES (test code = 2232) 91 MG/DL HDL CHOLESTEROL (test code = 2220) 36 MG/DL CALC LDL CHOL (test code = 2237) 148 MG/DL RISK RATIO LDL/HDL (test cod e = 2238) 4.11 RATIO Richard Casillas, THIRD [id number] 00:00:00* Test Item Value Reference Range Interpretation Comme nts TSH, THIRD GENERATION (test code = 2821) 1.370 UIU/ML Richard ArcosHEMOGLOBIN [id number] 00:00:00* Test Item Value Reference Range Interpretation Comme nts HEMOGLOBIN A1c (test code = 15449) 4.9 % Richard ArcosCBC W/AUTO [id number] 00:00:00* Test Item Value Reference Range Interpretation [...] ABS NUCLEATED RBCS (test cod e = 90199) 0.00 K/UL Richard ArcosCOMPREHENSIVE METABOLIC [id number] 00:00:00* Test Item Value Reference Range Interpretation Comme nts GLUCOSE (test code = 2217) 95 MG/DL BUN (test code = 2208) 10 MG/DL CREATININE (test code = 2214) 0.95 MG/DL eGFR (2020 CKD-EPI) (test co de = 29898) 84 ML/MIN/1.73 CALC BUN/CREAT (test code = [...] code = 2219) 9 U/L Richard ArcosLIPID [id number] 00:00:00* Test Item Value Reference Range Interpretation Comme nts CHOLESTEROL (test code = 2210) 204 MG/DL TRIGLYCERIDES (test code = 2232) 91 MG/DL HDL CHOLESTEROL (test code = 2220) 36 MG/DL CALC LDL CHOL (test code = 2237) 148 MG/DL RISK RATIO LDL/HDL (test cod e = 2238) 4.11 RATIO Richard ArcosTSH, THIRD [id number] 00:00:00* Test Item Value Reference Range Interpretation Comme nts TSH, THIRD GENERATION (test code = 2821) 1.370 UIU/ML Richard ArcosHEMOGLOBIN [id number] 00:00:00* Test Item Value Reference Range Interpretation Comme nts HEMOGLOBIN A1c (test code = 39161) 4.9 % Richard ArcosCBC W/AUTO [id number] 00:00:00* Test Item Value Reference Range Interpretation [...] ABS NUCLEATED RBCS (test cod e = 45750) 0.00 K/UL Richard Carrillo IsrraelCOMPREHENSIVE METABOLIC [id number] 00:00:00* Test Item Value Reference Range Interpretation Comme nts GLUCOSE (test code = 2217) 95 MG/DL BUN (test code = 2208) 10 MG/DL CREATININE (test code = 2214) 0.95 MG/DL eGFR (2020 CKD-EPI) (test co de = 83797) 84 ML/MIN/1.73 CALC BUN/CREAT (test code = [...] code = 2219) 9 U/L Richard ArcosLIPID [id number] 00:00:00* Test Item Value Reference Range Interpretation Comme nts CHOLESTEROL (test code = 2210) 204 MG/DL TRIGLYCERIDES (test code = 2232) 91 MG/DL HDL CHOLESTEROL (test code = 2220) 36 MG/DL CALC LDL CHOL (test code = 2237) 148 MG/DL RISK RATIO LDL/HDL (test cod e = 2238) 4.11 RATIO Richard ArcosTSH, THIRD [id number] 00:00:00* Test Item Value Reference Range Interpretation Comme annalisa TSH, THIRD GENERATION (test code = 2821) 1.370 UIU/ML Richard ArcosHEMOGLOBIN [id number] 00:00:00* Test Item Value Reference Range Interpretation Comme annalisa HEMOGLOBIN A1c (test code = 64333) 4.9 % Richard ArcosCBC W/AUTO [id number] 00:00:00* Test Item Value Reference Range Interpretation Comme annalisa WBC (test code = 1001) 7.2 K/UL [...] ABS NUCLEATED RBCS (test cod e = 28927) 0.00 K/UL Richard ArcosCOMPREHENSIVE METABOLIC [id number] 00:00:00* Test Item Value Reference Range Interpretation Comme nts GLUCOSE (test code = 2217) 95 MG/DL BUN (test code = 2208) 10 MG/DL CREATININE (test code = 2214) 0.95 MG/DL eGFR (2020 CKD-EPI) (test co de = 21929) 84 ML/MIN/1.73 CALC BUN/CREAT (test code = [...] code = 2219) 9 U/L Richard ArcosLIPID [id number] 00:00:00* Test Item Value Reference Range Interpretation Comme nts CHOLESTEROL (test code = 2210) 204 MG/DL TRIGLYCERIDES (test code = 2232) 91 MG/DL HDL CHOLESTEROL (test code = 2220) 36 MG/DL CALC LDL CHOL (test code = 2237) 148 MG/DL RISK RATIO LDL/HDL (test cod e = 2238) 4.11 RATIO Richard Casillas, THIRD [id number] 00:00:00* Test Item Value Reference Range Interpretation Comme annalisa TSH, THIRD GENERATION (test code = 2821) 1.370 UIU/ML Richard ArcosHEMOGLOBIN [id number] 00:00:00* Test Item Value Reference Range Interpretation Comme annalisa HEMOGLOBIN A1c (test code = 39248) 4.9 % Richard ArcosCBC W/AUTO [id number] 00:00:00* Test Item Value Reference Range Interpretation [...] ABS NUCLEATED RBCS (test cod e = 87376) 0.00 K/UL Richard ArcosCOMPREHENSIVE METABOLIC [id number] 00:00:00* Test Item Value Reference Range Interpretation Comme nts GLUCOSE (test code = 2217) 95 MG/DL BUN (test code = 2208) 10 MG/DL CREATININE (test code = 2214) 0.95 MG/DL eGFR (2020 CKD-EPI) (test co de = 52191) 84 ML/MIN/1.73 CALC BUN/CREAT (test code = [...] (test code = 2219) 9 U/L Richard Carrillo AustinLIPID [id number] 00:00:00* Test Item Value Reference Range Interpretation Comme nts CHOLESTEROL (test code = 2210) 204 MG/DL TRIGLYCERIDES (test code = 2232) 91 MG/DL HDL CHOLESTEROL (test code = 2220) 36 MG/DL CALC LDL CHOL (test code = 2237) 148 MG/DL RISK RATIO LDL/HDL (test cod e = 2238) 4.11 RATIO Richard Carrillo AustinPOCT [id number] 17:08:00* Test Item Value Reference Range Interpretation Comme nts POCT PREG (test code = 1605) Negative On board controls acceptable with C Line (test code = 3574) Yes POCT PREG LOT # (test code = 3578) [id number] POCT PREG TEST DATE ( test code = 3576) 02/03/2024 Lab Interpretation (test cod e = 10447-1) Normal [facility]PO[facility] [id number] 17:08:00* Test Item Value Reference Range Interpretation Comme nts POCT PREG (test code = 1605) Negative On board controls acceptable with C Line (test code = 3574) Yes POCT PREG LOT # (test code = 3575) [id number] POCT PREG TEST DATE ( test code = 3576) 02/03/2024 Lab Interpretation (test cod e = 35791-7) Normal [facility] [id number] 20:09:00* Test Item Value Reference Range Interpretation Comme nts POCT PREG (test code = 1605) Negative On board controls acceptable with C Line (test code = 3574) Yes POCT PREG LOT # (test code = 3575) [id number] POCT PREG TEST DATE ( test code = 3576) 09/16/2023 [facility] [id number] 20:09:00* Test Item Value Reference Range Interpretation Comme nts POCT PREG (test code = 1605) Negative On board controls acceptable with C Line (test code = 3574) Yes POCT PREG LOT # (test code = 3575) [id number] POCT PREG TEST DATE ( test code = 3576) 09/16/2023 [facility]-SM/[id number] 17:24:49* Test Item Value Reference Range Interpretation Comme nts ANTI-SMRNP (test code = 6108863770) Negative Negative NATHALIE (test code = NATHALIE) Positive - Antibod y detected.Negative - No antibody detected. Lab Interpretation (test code = 36390-5) [facility]-SSA(RO)2022-09-12 17:24:49* Test Item Value Reference Range Interpretation Comme nts ANTI-SSA(RO) (test code = 7659972678) Negative Negative NATHALIE (test code = NATHALIE) Positive - Antibod y detected.Negative - No antibody detected. Lab Interpretation (test code = 97977-4) [facility]-SSB(LA)2022-09-12 17:24:49* Test Item Value Reference Range Interpretation Comme nts Anti-SSB(LA) (test code = 1323433772) Negative Negative NATHALIE (test code = NATHALIE) Positive - Antibod y detected.Negative - No antibody detected. Lab Interpretation (test code = 01620-6) [facility]-DOUBLE STRANDED [id number] 17:24:48* Test Item Value Reference Range Interpretation Comme nts ANTI-DSDNA (test code = 0254443461) See_Comment [Automated message] The system which generated this result transmitted reference range: 0.0 - 4.0 IU/mL. The reference range was not used to interpret this result as normal/abnormal. NATHALIE (test code = NATHALIE) Negative ? ?< or = 4 IU/mLPositive ? ? ?> or = 10 IU/mLIndetermin ate ?5-9 IU/mL Lab Interpretation (test code = 02031-9) [facility] [id number] 00:41:07* Test Item Value Reference Range Interpretation Comme nts VIT B12 (test code = 5311781027) 266 pg/mL 240-930 NATHALIE (test code = NATHALIE) Biotin has been reported to cause a positive bias, interpret results relative to patient's use of biotin. Lab Interpretation (test code = 15826-0) [facility] [id number] 00:21:46 * Test Item Value Reference Range Interpretation Comme nts TSH (test code = 8745712836) 0.72 See_Comment [Automated [employer]] The system which generated this result transmitted reference range: 0.45 - 4.70 mIU/L. The reference range was not used to interpret this result as normal/abnormal. Lab Interpretation (test code = 17538-3) [facility] [id number] 00:08:06* Test Item Value Reference Range Interpretation Comme nts FREE T4 (test code = 0845616772) 1.15 See_Comment [Automated [employer]] The system which generated this result transmitted reference range: 0.78 - 2.20 ng/dL:. The reference range was not used to interpret this result as normal/abnormal. Lab Interpretation (test code = 94720-4) [facility]REACTIVE [id number] 17:31:36* Test Item Value Reference Range Interpretation Comme nts CRP (test code = 5677394587) 0.4 mg/dL <=0.8 Lab Interpretation (test cod e = 97302-5) [facility] [id number] 17:31:36* Test Item Value Reference Range Interpretation Comme nts CRP (test code = 4186173605) 0.4 mg/dL <=0.8 Lab Interpretation (test cod e = 14370-8) [facility] [id number] 17:31:36* Test Item Value Reference Range Interpretation Comme nts CRP (test code = 4073888880) 0.4 mg/dL <=0.8 Lab Interpretation (test cod e = 67738-8) [facility] CenterV[facility] D, [id number] 08:38:28* Test Item Value Reference Range Interpretation Comme nts VIT D 25OH (test code = 02328-4) 23 ng/mL 25-80 L NATHALIE (test code = NATHALIE) Deficiency: <20 ng/mLInsufficiency: 20-24 ng/mLOptimal: 25-80 ng/mL Lab Interpretation (test code = 19502-5) [facility]normal [facility] D, [id number] 08:38:28* Test Item Value Reference Range Interpretation Comme nts VIT D 25OH (test code = 10204-6) 23 ng/mL 25-80 L NATHALIE (test code = NATHALIE) Deficiency: <20 ng/mLInsufficiency: 20-24 ng/mLOptimal: 25-80 ng/mL Lab Interpretation (test code = 75168-5) [facility] D, [id number] 08:38:28* Test Item Value Reference Range Interpretation Comme nts VIT D 25OH (test code = 39895-8) 23 ng/mL 25-80 L NATHALIE (test code = NATHALIE) Deficiency: <20 ng/mLInsufficiency: 20-24 ng/mLOptimal: 25-80 ng/mL Lab Interpretation (test code = 94802-2) [facility]normal [facility] CenterSEDIMENTATION [id number] 05:38:05* Test Item Value Reference Range Interpretation Comme nts ESR (test code = 56498-7) 14 See_Comment [Automated message] The system which generated this result transmitted reference range: 0 - 20 mm/HR. The reference range was not used to interpret this result as normal/abnormal. Lab Interpretation (test code = 17895-4) [facility] [id number] 05:38:05* Test Item Value Reference Range Interpretation Comme nts ESR (test code = 60904-1) 14 See_Comment [Automated message] The system which generated this result transmitted reference range: 0 - 20 mm/HR. The reference range was not used to interpret this result as normal/abnormal. Lab Interpretation (test code = 96443-0) [facility] CenterSEDIMENTATION [id number] 05:38:05* Test Item Value Reference Range Interpretation Comme nts ESR (test code = 30250-7) 14 See_Comment [Automated message] The system which generated this result transmitted reference range: 0 - 20 mm/HR. The reference range was not used to interpret this result as normal/abnormal. Lab Interpretation (test code = 02325-7) [facility] CenterTHY[facility] STIMULATING [id number] 00:05:00 * Test Item Value Reference Range Interpretation Comme nts TSH (test code = 0287193226) See_Comment L [Automated messa ge] The system which generated this result transmitted reference range: 0.45 - 4.70 mIU/L. The reference range was not used to interpret this result as normal/abnormal. Lab Interpretation (test code = 34277-5) Abnormal [facility] CenterTH[facility] ST[facility] [id number] 00:05:00 * Test Item Value Reference Range Interpretation Comme nts TSH (test code = 9436037633) See_Comment L [Automated [employer]] The system which generated this result transmitted reference range: 0.45 - 4.70 mIU/L. The reference range was not used to interpret this result as normal/abnormal. Lab Interpretation (test code = 39335-6) Abnormal [place] [address] [id number] 23:51:00* Test Item Value Reference Range Interpretation Comme nts FREE T4 (test code = 0150020586) 1.93 ng/dL 0.78-2.2 Lab Interpretation (test cod e = 97366-5) Normal [place] [address] [id number] 23:51:00* Test Item Value Reference Range Interpretation Comme nts FREE T4 (test code = 0680654603) 1.93 ng/dL 0.78-2.2 Lab Interpretation (test cod e = 89832-1) [facility] Notes Date/Time Note Provider Source Richard Lock [facility]2025-08-14 00:00:00 Richard Lock [facility]2025-08-12 00:00:00 Richard Lock [facility]2025-07-29 00:00:00 Richard Lock [facility]2025-07-11 00:00:00 Richard Lock [facility]2025-05-01 00:00:00 Richard Lock [facility]2025-04-14 00:00:00 Richard Lock [facility]2025-04-02 00:00:00 Richard Lock [facility]2024-10-07 11:53:47 Please review and advise. ZAC 04/23/23 Ninoska Quijano [facility]2024-10-07 09:43:18 Patient is calling again regarding getting lab orders placed. Debbie MonsonPaulding County HospitalRiedhx1871-89-29 09:23:17 Called and scheduled patient for 12/31/23 for IUD removal. Estella LozanoPaulding County HospitalHsyrdm4467-43-06 12:39:55 Called pt; left v/m to schedule. Ss 12/21 @ 12:40pm [facility]asUniversity [facility] CenterOqzzct5493-22-11 08:47:49 Nita Slater is a 28 year old female is calling to be scheduled for IUD removal. Patient seen on 11/05 for consult and calling to schedule. Please call. Thank you. Patrizia UrbanoPaulding County HospitalFtqoym2257-60-53 14:55:24 Called to speak with patient. She states she is still taking the medication - 1.5 tabs (75 +37.5mg) every evening. Dinah Cao RNPaulding County HospitalXvuyal0034-50-06 09:23:16 Ok we will see what It shows Is she still taking Effexor T [place] 439234-03-26 09:00:22 Contacted patient and notified her per provider thyroid labs have been placed. She may have them drawn Mon-Fri 730a-445p. Patient reports she just got off her cycle last week, she is on control and has not been very active since she doesn't feel well. She states she will take an at home UPT. Marjorie Fay LVN 08/12/2023 9:02 AM Marjorie Fay [facility]2024-03-25 16:06:52 I put the order in, has she taken a home UPT? T [place] 439234-03-25 15:49:36 Please review and advise T [place] 439234-03-25 15:45:26 Nita Slater is a 27 year old female Pt called wanting to see if pcp can send lab orders to check her Thyroid levels. Pt states wakes up nauseous, tried all the time, & can't sleep at night. Pt declined apt due to self pay [place]. Please advise [phone] (home) Luis Jose KentFirstHealth Montgomery Memorial HospitalChwejq7989-31-72 08:49:38 Please review and sign if appropriate: [...] acute stable Plan: meloxicam 15 mg tablet TER TENDER Ninoska Quijano [facility]2023-08-23 13:19:56 Podiatry referral placed r/t x ray results [facility] HospitalInsdfu3677-14-50 12:15:00 Patient states she will call her Psych dr to check on lab orders. Pasha Tobias [facility] CenterjannethPaulding County Hospital
[2025-01-10 20:00] LABS: Sqamous Epithelial <5 /HPF (None Seen); Urine Culture Reflex Order NOT NEEDED; Urine Microscopic Reflex YN ORDER UMIC; Urine WBC Clump Rare /HPF (None Seen)
[2025-01-10 20:06] LABS: Absolute Lymphocytes (CBC) 1.2 K/uL (0.7-4.9); Hematocrit 38.0 % (36.0-45.0); Hemoglobin 12.8 g/dL (12.0-15.0); MCH 30.8 pg (27.0-35.0); MCHC 33.7 g/dL (32.0-36.0); MCV 91.2 fL (80-100); MPV 7.8 fL (7.6-11.3); Nucleated RBC Absolute Count 0.0 (0-0); Nucleated Red Blood Cells % 0.0 % (0-0); RBC Red Blood Cell Count 4.17 M/uL (3.86-4.86); White Blood Count 8.20 thou/uL (4.3-10.9)
[2025-01-10] MEDS ORDERED: ONDANSETRON 4 MG/2 ML VIAL ONE ×2 (20:14→22:05)
[2025-01-10] MEDS ORDERED: ACETAMINOPHEN 500 MG TAB ONE (20:14)
[2025-01-10 20:27] LABS: Anion Gap 10.6 mEq/L (5.0-15.0); BUN Blood Urea Nitrogen 8.0 mg/dL (7-18); Glucose Level 105.0 mg/dL (74-106); Potassium 3.6 mEq/L (3.5-5.1)
[2025-01-10 20:44] LABS: HCG, Quantitative 64430.0 mIU/mL (1-3)
--- NOTE | 2025-01-10 20:51 | RAD REPORT ---
EXAMINATION: US Abdomen Exam Limited CLINICAL HISTORY: [facility] MAIN N ABD PAIN Bed: COMPARISON: None. TECHNIQUE: Limited upper abdominal grayscale and color flow sonographic images. FINDINGS: Gallbladder: No wall thickening or pericholecystic fluid. No echogenic calculi. Negative sonographic Waters sign. Bile ducts: No intrahepatic or extrahepatic biliary dilatation. Common bile duct measures 2 mm. Liver: Visualized portions of the liver demonstrate normal echogenicity with no suspicious findings. Fluid: No ascites. IMPRESSION: No abnormalities on right upper quadrant ultrasound.
--- NOTE | 2025-01-10 21:30 | RAD REPORT ---
EXAMINATION: 1St Trimest Single 1St Fetus COMPARISON: 12/15/2024. HISTORY: [facility] MAIN ABD PAIN Bed: TECHNIQUE: Real-time ultrasound was performed through the pelvis through a transabdominal approach. FINDINGS: There is a single living intrauterine . There is no visible subchorionic hemorrhage. Both ovaries were not visualized. There is no free fluid in the cul-de-sac. Measurements and Calculations: [place] rump length 9.4 mm, consistent with a sonographic age of 7 weeks, 0 days. The patient's LMP da te: 11/05/2024. heart rate: 148 BPM. IMPRESSION: Single living intrauterine , with a composite sonographic age of 7 weeks, 0 days. Estimated due date: 08/29/2025
--- NOTE | 2025-01-10 21:43 | ER ---
Nurse's Notes [facility] Name: Penelope Slater Age: 29 yrs Sex: Female : 1995 Arrival Date: 01/10/2025 Time: 19:09 Bed 15 Private MD: Diagnosis: Low back pain;Abdominal pain, Generalized Presentation: 01/10 19:21 Chief complaint: Patient states: upper abdominal pain and right flank pain X3 days. lg3 constipation X1 week. Coronavirus screen: Client denies travel out of the [place] in the last 14 days. At this time, the client does not indicate any symptoms associated with coronavirus-19. Ebola Screen: No symptoms or risks identified at this time. Initial Sepsis Screen: Does the patient meet any 2 criteria? No. Patient's initial sepsis screen is negative. Does the patient have a suspected source of infection? No. Patient's initial sepsis screen is negative. Risk Assessment: Do you want to hurt yourself or someone else? Patient reports no desire to harm self or others. Onset of symptoms is unknown. 19:21 Method Of Arrival: Ambulatory lg3 19:21 Acuity: PRATIBHA 3 lg3 Triage Assessment: 19:23 General: Appears in no apparent distress. comfortable, Behavior is calm, cooperative. lg3 Pain: Complains of pain in back and abdomen. EENT: No deficits noted. No signs and/or symptoms were reported regarding the EENT system. Neuro: No deficits noted. Colby Agitation-Sedation Scale (RASS): 0 - Alert and Calm Level of Consciousness is awake, alert, obeys commands, Oriented to person, place, time, situation. Cardiovascular: No deficits noted. Capillary refill < 3 seconds Clubbing of nail beds is absent JVD is absent Patient's skin is warm and dry. Respiratory: No deficits noted. Airway is patent Respiratory effort is even, unlabored, Respiratory pattern is regular, symmetrical. GI: Abdomen is round non-distended, obese, Reports upper abdominal pain, constipation, nausea. : No signs and/or symptoms were reported regarding the genitourinary system. Derm: No deficits noted. No signs and/or symptoms reported regarding the dermatologic system. Skin is intact, is healthy with good turgor, Skin is dry, Skin is normal, Skin temperature is warm. Musculoskeletal: No deficits noted. No signs and/or symptoms reported regarding the musculoskeletal system. Circulation, motion, and sensation intact. Range of motion: intact in all extremities. 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 - Infectious Disease History:: Denies. - Social history:: Smoking status: Patient denies any tobacco usage or history of. Patient uses street drugs, marijuana. Screenin:42 [facility] ED Fall Risk Assessment (Adult) History of falling in the last 3 months, kt5 including since admission No falls in past 3 months (0 pts) Confusion or Disorientation No (0 pts) Intoxicated or Sedated No (0 pts) Impaired Gait No (0 pts) Mobility Assist Device Used No (0 pt) Altered Elimination No (0 pt) Score/Fall Risk Level 0 - 2 = Low Risk Oriented to surroundings, Maintained a safe environment, Educated pt \T\ family on fall prevention, incl call for assistance when getting out of bed. Abuse screen: Denies threats or abuse. Denies injuries from another. Nutritional screening: No deficits noted. Tuberculosis screening: No symptoms or risk factors identified. Assessment: 19:42 General: Appears in no apparent distress. uncomfortable, Behavior is calm, cooperative, kt5 appropriate for age. Pain: Complains of pain in left low back, left mid back, right mid back and right low back Pain radiates to right lower quadrant Pain currently is 4 out of 10 on a pain scale. Quality of pain is described as sharp, Pain began 2-3 days ago. Is continuous. Neuro: No deficits noted. Colby Agitation-Sedation Scale (RASS): 0 - Alert and Calm Level of Consciousness is awake, alert, obeys commands, Oriented to person, place, time, situation, Appropriate for age. Cardiovascular: No deficits noted. Reports None Denies chest pain, Heart tones S1 S2 present Capillary refill < 3 seconds is brisk Clubbing of nail beds is absent JVD is absent Patient's skin is warm and dry. Pulses are all present. Edema is absent. Respiratory: No deficits noted. Airway is patent Trachea midline Respiratory effort is even, unlabored, Respiratory pattern is regular, symmetrical. GI: Abdomen is flat, non-distended, Bowel sounds present X 4 quads. Abd is soft X 4 quads Abdomen is tender to palpation in right lower quadrant Reports lower abdominal pain, bilateral flank pain. : Urine is cloudy, Denies burning with urination. EENT: No deficits noted. No signs and/or symptoms were reported regarding the EENT system. Derm: No deficits noted. No signs and/or symptoms reported regarding the dermatologic system. Skin is intact, is healthy with good turgor, Skin is Skin is pink, warm \T\ dry. normal, Skin temperature is warm. Musculoskeletal: No deficits noted. No signs and/or symptoms reported regarding the musculoskeletal system. 20:01 Reassessment: Patient appears in no apparent distress at this time. Patient and/or kt5 family updated on plan of care and expected duration. Pain level reassessed. Patient is alert, oriented x 3, equal unlabored respirations, skin warm/dry/pink. Patient denies pain at this time. Patient states feeling better. Patient states symptoms have improved. 21:06 Reassessment: Patient appears in no apparent distress at this time. Patient and/or kt5 family updated on plan of care and expected duration. Pain level reassessed. Patient is alert, oriented x 3, equal unlabored respirations, skin warm/dry/pink. Patient denies pain at this time. Patient states feeling better. Patient states symptoms have improved. 21:53 Reassessment: pt actively vomiting at this time and c/o of reflux symptoms, provider kt5 aware. 22:28 Reassessment: Patient appears in no apparent distress at this time. Patient is alert, kt5 oriented x 3, equal unlabored respirations, skin warm/dry/pink. Patient states feeling better. Patient states symptoms have improved. Vital Signs: 19:21 BP 136 / 92; Pulse 87; Resp 16 S; Temp 98.4(O); Pulse Ox 97% on R/A; Weight 127.01 kg lg3 (R); Height 5 ft. 7 in. (R); 20:47 BP 129 / 92; Pulse 76; Resp 18; Pulse Ox 98% ; kt5 22:13 BP 134 / 99; Pulse 84; Resp 18; Pulse Ox 100% ; kt5 22:29 BP 123 / 89; Pulse 84; Resp 18 S; Pulse Ox 100% on R/A; kt5 19:21 Body Mass Index 43.85 (127.01 kg, 170.18 cm) lg3 Buford Coma Score: 19:42 Eye Response: spontaneous(4). Motor Response: obeys commands(6). Verbal Response: kt5 oriented(5). Total: 15. ED Course: 19:11 Patient arrived in ED. mr 19:12 [facility] Wittistin, [facility] kb 19:12 Cesario Palomino DO is Attending Physician. kb 19:23 Triage completed. lg3 19:23 Arm band placed on right wrist. lg3 19:40 Initial lab(s) drawn, by record label internship, sent to lab. Inserted saline lock: 20 gauge in left ts3 antecubital area, using aseptic technique. Blood collected. Flushed with 10 mL NS. 19:40 Urine collected: clean catch specimen, sent to lab. ts3 19:42 Harmony Jason, RN is Primary Nurse. kt5 19:42 Patient has correct armband on for positive identification. Fall risk band placed. kt5 Placed in gown. Bed in low position. Call light in reach. Side rails up X 1. Client placed on continuous cardiac and pulse oximetry monitoring. NIBP monitoring applied. frame repairer on. Door closed. Noise minimized. Warm blanket given. Pillow given. Head of bed elevated. 20:16 tech at bs for ultrasound. kt5 20:37 US Abdomen Limited In Process Unspecified. EDMS 20:40 1St Trimest Single 1St Fetus In Process Unspecified. EDMS 22:41 IV discontinued, bleeding controlled, No redness/swelling at site. Pressure dressing kt5 applied. Administered Medications: 20:16 Drug: Ondansetron IVP 4 mg IVP once; over 2 minutes Route: IVP; Site: right forearm; kt5 20:47 Follow up: Response: No adverse reaction; Nausea is decreased kt5 20:16 Drug: Acetaminophen PO 1000 mg PO once Route: PO; kt5 20:46 Follow up: Response: No adverse reaction; Pain is decreased kt5 22:13 Drug: Famotidine IVP 20 mg IVP once; dilute with 10 mL 0.9% NaCl; give over 2 minutes kt5 Route: IVP; Site: left antecubital; 22:29 Follow up: Response: No adverse reaction; Nausea is decreased kt5 22:13 Drug: Ondansetron IVP 4 mg IVP once; over 2 minutes Route: IVP; Site: left antecubital; kt5 22:29 Follow up: Response: No adverse reaction; Nausea is decreased kt5 Medication: 19:42 VIS not applicable for this client. kt5 Outcome: 21:42 Discharge ordered by . gianna 22:42 Patient left the ED. kt5 Signatures: Dispatcher [employer] Carissa Szymanski, TRAVELING PHLEBOTOMIST-C TRAVELING PHLEBOTOMIST-CkRadha Mcknight, Giovanni Reg Aury Francois, RN RN lg3 Taylor Calderón 3 Harmony Jason, MAGALYS RN kt5 Corrections: (The following items were deleted from the chart) 20:38 20:37 In radiology for Transvaginal Ob+US.RAD.MADIHA. SARAH SMITH
--- NOTE | 2025-01-10 21:43 | EDPHYS ---
Physician Documentation [facility] Name: Penelope Slater Age: 29 yrs Sex: Female : 1995 Arrival Date: 01/10/2025 Time: 19:09 Bed 15 Private MD: ED Physician Cesario Palomino HPI: 01/10 23:09 This 29 yrs old Female presents to ER via Ambulatory with complaints of 8wks , kb Flank Pain. 23:09 Patient is a 29-year-old female who presents for abdominal pain and back pain for 3 kb days . States she is 8 weeks , A0. Denies any bleeding or discharge. Denies urinary symptoms. Reports she has had nausea and vomiting throughout the so far, currently taking Diclegis and Zofran at home. Reports constipation for the last week. States she has had small bowel movements but has not had a decent bowel movement in 1 week.. 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 - Infectious Disease History:: Denies. - Social history:: Smoking status: Patient denies any tobacco usage or history of. Patient uses street drugs, marijuana. ROS: 23:11 Constitutional: As per HPI kb Exam: 23:11 Constitutional: This is a well developed, well nourished patient who is awake, alert, kb and in no acute distress. Head/Face: Normocephalic, atraumatic. ENT: Moist Mucous membranes Cardiovascular: Regular rate Respiratory: Respirations even and unlabored. No increased work of breathing. Talking in full sentences Skin: Warm, dry with normal turgor. Normal color. MS/ Extremity: Pulses equal, no cyanosis. Neurovascular intact. Full, normal range of motion. Neuro: Awake and alert, GCS 15, oriented to person, place, time, and situation. 23:11 Abdomen/GI: Inspection: obese Bowel sounds: normal, Palpation: soft, in all quadrants, mild abdominal tenderness, in all quadrants, 23:11 Back: pain, that is mild, of the low back area and mid back area, Vital Signs: 19:21 BP 136 / 92; Pulse 87; Resp 16 S; Temp 98.4(O); Pulse Ox 97% on R/A; Weight 127.01 kg lg3 (R); Height 5 ft. 7 in. (R); 20:47 BP 129 / 92; Pulse 76; Resp 18; Pulse Ox 98% ; kt5 22:13 BP 134 / 99; Pulse 84; Resp 18; Pulse Ox 100% ; kt5 22:29 BP 123 / 89; Pulse 84; Resp 18 S; Pulse Ox 100% on R/A; kt5 19:21 Body Mass Index 43.85 (127.01 kg, 170.18 cm) lg3 Hugo Coma Score: 19:42 Eye Response: spontaneous(4). Motor Response: obeys commands(6). Verbal Response: kt5 oriented(5). Total: 15. MDM: 19:12 Medical Screening Exam initiated kb 23:11 Differential diagnosis: Cholelithiasis, cholecystitis, UTI, pyelonephritis. Data kb reviewed: vital signs, nurses notes. Counseling: I had a detailed discussion with the patient and/or guardian regarding the historical points, exam findings, and any diagnostic results supporting the discharge/admit diagnosis, lab results, radiology results, the need for outpatient follow up, an OB/Gyne specialist, to return to the emergency department if symptoms worsen or persist or if there are any questions or concerns that arise at home. 01/10 19:12 Order name: Abo/rh Typing; Complete Time: 21:09 kb 01/10 19:12 Order name: Basic Metabolic Panel; Complete Time: 20:44 kb 01/10 19:12 Order name: CBC with Diff; Complete Time: 20:11 kb 01/10 19:12 Order name: Test, Urine; Complete Time: 20:06 kb 01/10 19:12 Order name: Quantitative Hcg; Complete Time: 20:44 kb 01/10 19:12 Order name: UA Rfx Anthony Cult if indicated; Complete Time: 20:02 kb 01/10 19:19 Order name: Lipase; Complete Time: 20:21 kb 01/10 19:19 Order name: US Abdomen Limited; Complete Time: 20:56 kb 01/10 20:40 Order name: 1St Trimest Single 1St Fetus; Complete Time: 21:31 EDMS 01/10 19:12 Order name: IV Saline Lock; Complete Time: 19:40 kb 01/10 19:12 Order name: Labs collected and sent; Complete Time: 19:40 kb 01/10 19:12 Order name: NPO; Complete Time: 19:54 kb Administered Medications: 20:16 Drug: Ondansetron IVP 4 mg IVP once; over 2 minutes Route: IVP; Site: right forearm; kt5 20:47 Follow up: Response: No adverse reaction; Nausea is decreased kt5 20:16 Drug: Acetaminophen PO 1000 mg PO once Route: PO; kt5 20:46 Follow up: Response: No adverse reaction; Pain is decreased kt5 22:13 Drug: Famotidine IVP 20 mg IVP once; dilute with 10 mL 0.9% NaCl; give over 2 minutes kt5 Route: IVP; Site: left antecubital; 22:29 Follow up: Response: No adverse reaction; Nausea is decreased kt5 22:13 Drug: Ondansetron IVP 4 mg IVP once; over 2 minutes Route: IVP; Site: left antecubital; kt5 22:29 Follow up: Response: No adverse reaction; Nausea is decreased kt5 Disposition Summary: 01/10/25 21:42 Discharge Ordered Notes: Location: Home kb Condition: Stable kb Diagnosis - Low back pain kb - Abdominal pain, Generalized kb Followup: kb - With: Emergency Department - When: As needed - Reason: Worsening of condition Followup: kb - With: Private Physician - When: 2 - 3 days - Reason: Recheck today's complaints, Continuance of care, Re-evaluation by your physician Discharge Instructions: - Discharge Summary Sheet kb - Abdominal Pain During , [id number] kb Forms: - Medication Reconciliation Form kb - Antibiotic Education kb - Prescription Opioid Use kb - Patient Portal Instructions kb - Leadership Thank You Letter kb Addendum: 01/12/2025 10:54 I reviewed the patient's care provided by the Advanced Practice Provider and agree with m s3 the diagnosis and treatment plan. Signatures: Dispatcher [employer] EDWY Carissa Witt, BILINGUAL RECEPTIONIST-C BILINGUAL RECEPTIONIST-Ckb Aury Barker, RN RN lg3 Cesario Palomino, DO DO ms3 Harmony Jason, RN RN kt5 Corrections: (The following items were deleted from the chart) 01/10 19:13 19:13 Rp Exam Complete+US.RAD.BRZ ordered. EDMS EDMS 20:38 19:13 Transvaginal Ob+US.RAD.BRZ ordered. EDMS EDMS 23:11 23:09 Patient is a 29-year-old female who presents for abdominal pain and back pain. kb States she is 8 weeks , A0. Denies any bleeding or discharge. Denies urinary symptoms.. kb
[2025-01-10] MEDS ORDERED: FAMOTIDINE 20 MG/2 ML VIAL IV ONE (22:06)
[2025-01-11 02:52] VITALS: TEMP 98.4
[2025-01-11 02:56] VITALS: O2SAT 100
[2025-01-11 02:57] VITALS: BP 123/89
== END 2025-01-10 22:42 | disposition home or self-care (01) ==
LOC: ER 19:09
DX: O26.891 Other specified pregnancy related conditions, first trimester (principal); R10.84 Generalized abdominal pain; M54.50 Low back pain, unspecified; Z3A.08 8 weeks gestation of pregnancy
CPT/HCPCS: 85025; 81001; 80048; 36415; 86900; 81025; 86901; 84702; 83690; 76705; 76801; 99285; J2405 ×2

== ENCOUNTER 2025-02-22 16:28 | Emergency (ER) | payer OTHER ==
--- OUTSIDE RECORDS SUMMARY | 2025-02-22 16:42 | XMS REPORT | Continuity of Care Document ---
Author Name Unknown Address [address] [facility] [address] [place] [address] Organization [facility] [place] Address [address] [facility] [address] [place] [address] Care Team Providers Care Chief Credit Officer Name Role Phone Florencia Chang MD Primary Care Physician BRENNEN WAGNER Attending Clinician Unavailable MARJORIE BENÍTEZ Attending Clinician Unavailable Criss Briggs Attending Clinician [phone] Jeyson Marjorie ARMSTRONG Attending Clinician [phone] BÁRBARA TAYLOR Attending Clinician BÁRBARA Silver Attending Clinician JELLY Perez Attending Clinician Unavailable Criss Briggs Attending Clinician [phone] Brennen Wagner MD Attending Clinician [phone] Lab, Ang - Db Attending Clinician Unavailable CRISS LEYVA Attending Clinician Unavailable Po, [facility] Lab Main Attending Clinician Unavailabl e Doctor Unassigned, [place] Attending Clinician U navailable MANDA ATKINSON Attending Clinician Unavaila MANDA Kapoor Attending Clinician UnavailLANG Diop Attending Clinician Unavail LANG Caicedo Attending Clinician Unavail Lang Caicedo MD Attending Clinician [phone] [facility] Attending Clinician Unavailable Mandy Ramirez Attending Clinician [phone] , [facility] Sleep Lab Bed Attending Clinician Unavail Manda Kinsey MD Attending Clinician + [phone] MANDY WAGNER Attending Clinician Unavailable Pcp-Lab Attending Clinician Unavailable Jelly Waters PA-C Attending Clinician [phone] JELLY WATERS Attending Clinician Unavailable ELIZA MEJIA Attending Clinician Unavailable Surface Moraima Conner Attending Clinician [phone], [employer] Attending Clinician Joceline Zuleyma Saba PhD Attending Clinician + [phone] ZULEYMA RIVAS Attending Clinician Unavailab SYDNI Abbott Attending Clinician Unavailable Ozzie Juárez Attending Clinician [phone], [facility] Attending Clinician Unavailable BRENNEN WAGNER Admitting Clinician Unavailable Bárbara Taylor MD Admitting Clinician +- [phone] LANG JACKSON Admitting Clinician Unavail able Payers Payer Name Policy Type Policy Number Effective Date Expirati on Date Source [facility] STAR [id number] 2022 00:00:00 Problems Condition Name Condition Details Condition Category Status Onset Date Resolution Date Last Treatment Date Treating Clinician Comments Source Thyrotoxic osis Thyrotoxic osis Disease Active 05-20 00:00: 00 [facility] Tachycardi a Tachycardi a Disease Active 05-20 00:00: 00 [facility] Polycystic ovaries Polycystic ovaries Disease Active - 00:00: 00 [facility] Pain Pain Disease Active 2022-05- 00:00: 00 [facility] Right wrist pain Right wrist pain Disease Active 2022-05 2-06 00:00: 00 [facility] Dysplasia of cervix, high grade JEMIMA 2 Dysplasia of cervix, high grade JEMIMA 2 Disease Active 2022-05 00:00: 00 [facility] Severe dysplasia of cervix (JEMIMA III) Severe dysplasia of cervix (JEMIMA III) Disease Active 2022-05 00:00: 00 [facility] Morbid obesity with body mass index of 40.0-49.9 Morbid obesity with body mass index of 40.0-49.9 Disease Active 2023-1 0-30 00:00: 00 [facility] ASCUS with 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 Disease Active 2022-05 0-30 00:00: 00 [facility] Atypical squamous cell changes of undetermin ed significan ce (ASCUS) on vaginal cytology Atypical squamous cell changes of undetermin ed significan ce (ASCUS) on vaginal cytology Disease Active 0 7-05 00:00: 00 [facility] History of HPV infection History of HPV infection Disease Active 0 705 00:00: 00 [facility] Right hip pain Right hip pain Disease Active 0 10-07 00:00: 00 [facility] Right hip pain Right hip pain Disease Active 0 10-07 00:00: 00 [facility] Snoring Snoring Disease Active 0 5 00:00: 00 [facility] Chronic midline thoracic back pain Chronic midline thoracic back pain Disease Active 0 5-19 00:00: 00 [facility] Lumbar pain Lumbar pain Disease Active 0 5-19 00:00: 00 [facility] Herpes zoster without complicati on Herpes zoster without complicati on Disease Active 0 2-13 00:00: 00 [facility] Pulsatile tinnitus of right ear Pulsatile tinnitus of right ear Disease Active 0 2-13 00:00: 00 [facility] BMI 45.0-49.9, adult BMI 45.0-49.9, adult Disease Active 0 2-06 00:00: 00 [facility] Anxiety and depression Anxiety and depression Disease Active 0 2-06 00:00: 00 [facility] Graves disease Graves disease Disease Active 7-12 00:00: 00 [facility] Acute cough Acute cough Disease Resolve d 0 8- 00:00: 00 2023-03-17 00:00:00 2023-03-17 15:14:05 [facility] Bartholin' s cyst Bartholin' s cyst Disease Resolve d 8-29 00:00: 00 2023-03-17 00:00:00 2023-03-17 15:14:32 [facility] Acute cough Acute cough Disease Resolve d 2022-0 8-29 00:00: 00 2023-03-17 00:00:00 2023-03-17 15:14:05 [facility] Nasal congestion Nasal congestion Disease Resolve d 2022-0 8-29 00:00: 00 2023-03-17 00:00:00 2023-03-17 15:14:08 [facility] Cellulitis of other specified site Cellulitis of other specified site Disease Resolve d 2022-0 8-29 00:00: 00 2023-03-17 00:00:00 2023-03-17 15:14:04 [facility] Viral upper respirator y tract infection Viral upper respirator y tract infection Disease Resolve d 2022-0 8-29 00:00: 00 2023-03-17 00:00:00 2023-03-17 15:14:01 [facility] Chest pain, unspecifie d type Chest pain, unspecifie d type Disease Resolve d 2022-0 7-31 00:00: 00 2023-03-17 00:00:00 2023-03-17 15:14:10 [facility] Right foot pain Right foot pain Disease Resolve d 2022-0 7-31 00:00: 00 2023-03-17 00:00:00 2023-03-17 15:14:07 [facility] Cervical cancer screening Cervical cancer screening Disease Resolve d 2022-0 5-31 00:00: 00 2023-03-17 00:00:00 2023-03-17 15:13:58 [facility] Muscle twitching Muscle twitching Disease Resolve d 2022-0 2-13 00:00: 00 2023-03-17 00:00:00 2023-03-17 15:13:53 [facility] Encounter to establish care Encounter to establish care Disease Resolve d 2022-0 2-06 00:00: 00 2023-03-17 00:00:00 2023-03-17 15:14:16 [facility] Encounter to establish care Encounter to establish care Disease Resolve d 2-06 00:00: 00 2023-03-17 00:00:00 2023-03-17 15:14:16 [facility] Disease Resolve d 9-13 00:00: 00 2023-03-17 00:00:00 2023-03-17 15:14:30 [facility] Allergies, Adverse Reactions, Alerts Allergy Name Allergy Type Status Severity Reaction(s) Onset Date Inactive Date Treating Clinician Comments Source LATEX DRUG INGREDI Active Med Hives 2022-05 00:00: 00 [facility] Latex Propensi ty to adverse reaction s Active Hives 2022-05 00:00: 00 [facility] NO KNOWN ALLERGIE S Drug Class Active [facility] Social History Social Habit Start Date Stop Date Quantity Comments Source History SDOH Food Worry [facility] Gender identity [facility] Alcoholic beverage intake 2023-12-31 00:00:00 2023-12-31 00:00:00 Ex-drinker (finding) [facility] History of Social function 2023-11-06 00:00:00 2023-11-06 00:00:00 [facility] Alcohol intake 2023-04-29 00:00:00 2023-04-29 00:00:00 Ex-drinker (finding) [facility] Tobacco use and exposure 2023-03-31 00:00:00 2023-03-31 00:00:00 User of smokeless tobacco [facility] Tobacco Comment 2023-03-31 00:00:00 2023-03-31 00:00:00 Smoke weed daily [facility] Exposure to SARS-CoV-2 (event) 2022-11-09 00:00:00 2022-11-19 20:17:00 Not sure [facility] History SDOH Alcohol Frequency 2022-10-07 00:00:00 2022-10-07 00:00:00 1 [facility] History SDOH Alcohol Std Drinks 2022-10-07 00:00:00 2022-10-07 00:00:00 0 [facility] History SDOH Alcohol Binge 2022-10-07 00:00:00 2022-10-07 00:00:00 1 [facility] History SDOH Financial 2022-10-07 00:00:00 2022-10-07 00:00:00 3 [facility] History SDOH Food Scarcity 2022-10-07 00:00:00 2022-10-07 00:00:00 2 [facility] History SDOH Transport Med 2022-10-07 00:00:00 2022-10-07 00:00:00 2 [facility] History SDOH Transport Non-Med 2022-10-07 00:00:00 2022-10-07 00:00:00 2 [facility] History SDOH Housing Unable to Pay 2022-10-07 00:00:00 2022-10-07 00:00:00 1 [facility] History SDOH Housing Places Lived 2022-10-07 00:00:00 2022-10-07 00:00:00 2 [facility] History SDOH Housing Homeless Last Year 2022-10-07 00:00:00 2022-10-07 00:00:00 2 [facility] Sex assigned at 1995 00:00:00 1995 00:00:00 [facility] Smoking Status Start Date Stop Date Source Never smoked tobacco [facility] Medications Ordered Medication Name Filled Medication Name Start Date Stop Date Current Medication? Ordering Clinician Indication Dosage Frequency Signature (SIG) Comments Components Source Reglan 10 mg tablet 01-27 00:00: 00 Yes 1mg Richard Arcos Promethegan 50 mg rectal suppository 01-27 00:00: 00 Yes 1mg Richard Arcos promethazin e 12.5 mg tablet 01-20 00:00: 00 Yes 12mg Richard Arcos trazodone 100 mg tablet 01-20 00:00: 00 Yes 1mg Richard Arcos Effexor XR 37.5 mg capsule,ext ended release 01-20 00:00: 00 Yes 1mg Richard Arcos fluoxetine 40 mg capsule 0 9-04 00:00: 00 Yes 1mg Richard Arcos trazodone 100 mg tablet 0 8-26 00:00: 00 Yes 1mg Richard Arcos ondansetron 8 mg disintegrat ing tablet 0 8-20 00:00: 00 Yes 1mg Richard Arcos metronidazo le 500 mg tablet 0 8-19 00:00: 00 Yes 1mg Richard Arcos fluoxetine 20 mg tablet 8-14 00:00: 00 Yes 1mg Richard Arcos Unisom (doxylamine ) 25 mg tablet 8-12 00:00: 00 Yes 1mg Richard Arcos Diclegis 10 mg-10 mg tablet,juan yed release -12 00:00: 00 Yes 2mg Richard Arcos Effexor XR 75 mg capsule,ext ended release 0 8-12 00:00: 00 Yes 1mg Richard Arcos Effexor XR 37.5 mg capsule,ext ended release 0 8-12 00:00: 00 Yes 1mg Richard Arcos sertraline 50 mg tablet 0 8- 00:00: 00 Yes 1mg Richard Arcos sertraline 25 mg tablet 8-06 00:00: 00 Yes 1mg Richard Arcos Effexor XR 37.5 mg capsule,ext ended release 0 8-06 00:00: 00 Yes 1mg Richard Arcos buspirone 10 mg tablet 0 7- 00:00: 00 Yes 1mg Richard Arcos trazodone 100 mg tablet 0 - 00:00: 00 Yes 1mg Richard Arcos Effexor XR 75 mg capsule,ext ended release 0 7-22 00:00: 00 Yes 1mg Richard rAcos Effexor XR 37.5 mg capsule,ext ended release 0 7-22 00:00: 00 Yes 1mg Richard Arcos pantoprazol e 40 mg tablet,juan yed release 0 7-11 00:00: 00 Yes 1mg Richard Arcos dicyclomine 20 mg tablet 0 6-04 00:00: 00 Yes 1mg Richard Arcos famotidine 20 mg tablet 2024-0 6-04 00:00: 00 Yes 1mg Richard Arcos ondansetron 8 mg disintegrat ing tablet 2024-0 6-04 00:00: 00 Yes 1mg Richard Arcos buspirone 10 mg tablet 2024-0 5-27 00:00: 00 Yes 1mg Richard Arcos trazodone 100 mg tablet 2024-0 5- 00:00: 00 Yes 1mg Richard Arcos Effexor XR 75 mg capsule,ext ended release 2024-0 5-27 00:00: 00 Yes 1mg Richard Arcos Effexor XR 37.5 mg capsule,ext ended release 2024-0 5- 00:00: 00 Yes 1mg Richard Arcos dicyclomine 20 mg tablet 2024-0 4- 00:00: 00 Yes 1mg Richard Arcos ondansetron 8 mg disintegrat ing tablet 2024-0 4-02 00:00: 00 Yes 1mg Richard Arcos buspirone 10 mg tablet 2024-0 3-31 00:00: 00 Yes 1mg Richard Arcos trazodone 100 mg tablet 2024-0 3-31 00:00: 00 Yes 1mg Richard Arcos Effexor XR 75 mg capsule,ext ended release 2024-0 3-31 00:00: 00 Yes 1mg Richard Arcos Effexor XR 37.5 mg capsule,ext ended release 2024-0 3-31 00:00: 00 Yes 1mg Richard Arcos buspirone 10 mg tablet 2024-0 3-03 00:00: 00 Yes 1mg Richard Arcos trazodone 100 mg tablet 2024-0 3-03 00:00: 00 Yes 1mg Richard Arcos Effexor XR 75 mg capsule,ext ended release 5-0 3-03 00:00: 00 Yes 1mg Richard Arcos Effexor XR 37.5 mg capsule,ext ended release 5-0 3-03 00:00: 00 Yes 1mg Richard Arcos buspirone 10 mg tablet 5-0 2-03 00:00: 00 Yes 1mg Richard Arcos trazodone 100 mg tablet 5-0 2-03 00:00: 00 Yes 1mg Richard Arcos Effexor XR 75 mg capsule,ext ended release 2024-0 2- 00:00: 00 Yes 1mg Richard Arcos Effexor XR 37.5 mg capsule,ext ended release 2024-0 2-03 00:00: 00 Yes 1mg Richard Arcos buspirone 10 mg tablet 2023-05 2-20 00:00: 00 Yes 1mg Richard Arcos trazodone 100 mg tablet 2023-05 2-20 00:00: 00 Yes 1mg Richard Arcos Effexor XR 75 mg capsule,ext ended release 2023-05 2- 00:00: 00 Yes 1mg Richard Arcos Effexor [...] Arcos hydroxyzine pamoate 25 mg capsule 2023- 0-25 00:00: 00 Yes 1mg Richard Arcos buspirone 10 mg tablet 2023-05 0-08 00:00: 00 Yes 1mg Richard Arcos trazodone 100 mg tablet 2023-05 0-08 00:00: 00 Yes 1mg Richard Arcos Effexor XR 75 mg capsule,ext ended release 1 0-08 00:00: 00 Yes 1mg Richard Carrillo Isrrael Effexor XR 37.5 mg capsule,ext ended release 1 0-08 00:00: 00 Yes 1mg Richard Arcos hydroxyzine pamoate 25 mg capsule 2023-1 0-08 00:00: 00 Yes 1mg Richard Arcos trazodone 50 mg tablet 0 8-08 00:00: 00 Yes 51mg Richard Arcos Effexor XR 75 mg capsule,ext ended release 2023-0 8-08 00:00: 00 Yes 1mg Richard Carrillo Isrrael Effexor XR 37.5 mg capsule,ext ended release 2023-0 8-08 00:00: [...] XR 75 mg capsule,ext ended release 4-0 6-10 00:00: 00 Yes 1mg Richard Carrillo Isrrael Effexor XR 37.5 mg capsule,ext ended release 2024-0 6-10 00:00: 00 Yes 1mg Richard Carrillo Isrrael Effexor XR 75 mg capsule,ext ended release 2024-0 6-06 00:00: 00 Yes 1mg Richard Carrillo Isrrael Effexor XR 37.5 mg capsule,ext ended release 2024-0 6-06 00:00: 00 Yes 1mg Richard Carrillo Isrrael Effexor XR 75 mg capsule,ext ended release 2024-0 4-10 00:00: 00 Yes 1mg Richard Lorena Isrrael Effexor XR 37.5 mg capsule,ext ended release 2024-0 4-10 00:00: 00 Yes 1mg Richard F Isrrael Effexor XR 37.5 mg capsule,ext ended release 08-24 00:00: 00 Yes 1mg Richard Arcos Effexor XR 75 mg capsule,ext ended release 08-24 00:00: 00 Yes 1mg Richard Arcos MELOXICAM 15 mg tablet -19 00:00: 00 11-05 00:00 :00 No [id number] 9100 15mg TAKE 1 TABLET BY MOUTH ONCE DAILY NEEDED FOR PAIN (WRIST PAIN). [facility] TAKE 1 CAPSULE BY MOUTH EVERY DAY WITH FOOD 06-09 00:00: 00 Yes Richard Arcos TAKE 1 CAPSULE TWICE DAILY. 06-09 00:00: 00 09-24 00:00 :00 No 25 Richard Arcos TAKE 1 TABLET BY MOUTH ONCE DAILY 06-09 00:00: 00 09-24 00:00 :00 No 375 Richard Arcos tirzepatide (MOUNJARO) 2.5 mg/0.5 mL PnIj 2022-05 00:00: 00 11-05 00:00 :00 No [id number] 2.5mg inject 2.5 mg under the skin weekly. [facility] tirzepatide (MOUNJARO) 5 mg/0.5 mL PnIj 2022-05 00:00: 00 11-05 00:00 :00 No [id number] 5mg inject 5 mg under the skin weekly. [facility] levonorgest reL (MIRENA) 20 mcg/24 hours (8 yrs) 52 mg IUD 2022-05 10:48: 28 Yes as directed [facility] ergocalcife rol, vitamin D2, (VITAMIN D ORAL) 2022-05 10:48: 28 Yes Take by mouth daily. [facility] tirzepatide (MOUNJARO) 2.5 mg/0.5 mL PnIj 2022-05 2- 00:00: 00 11-05 00:00 :00 No [id number] 2.5mg inject 2.5 mg under the skin weekly. [facility] TAKE 1 TABLET BY MOUTH ONCE DAILY NEEDED FOR PAIN (WRIST PAIN). 2022-05 00:00: 00 Yes Richard Arcos meloxicam 15 mg tablet 2022-05 00:00: 00 07-07 00:00 :00 No [id number] 9100 15mg Take 1 tablet by mouth once daily as needed for Pain (wrist pain). [facility] TAKE 1 CAPSULE BY MOUTH EVERY [...] at 1030, Until Discontinu ed, Routine, PACU [facility] HYDROcodone -acetaminop hen (NORCO) 10-325 mg tablet 1 tablet 2022-05 16:22: 30 Yes 1{tbl} 1 tablet, Oral, PRN, 1 dose, Starting on Fri04/07/23 at 1022, Until Discontinu ed, Routine, Pain (scale 7-10), DSU Recovery [facility] HYDROcodone -acetaminop hen (NORCO 5) 5-325 mg tablet 1 tablet 2022-05 16:22: 30 Yes 1{tbl} 1 tablet, Oral, PRN, 1 dose, Starting on Fri04/07/23 at 1022, Until Discontinu ed, Routine, Pain (scale 4-6), DSU Recovery [facility] ibuprofen (IBU) tablet 800 mg 2022-05 16:22: 30 Yes 800mg 800 mg, Oral, PRN, 1 dose, Starting on Fri04/07/23 at 1022, Until Discontinu ed, Routine, Pain (scale 1-3), DSU Recovery [facility] FENTanyl PF (SUBLIMAZE (PF)) injection 25 mcg 2022-05 16:22: 23 Yes 25ug 25 mcg, Slow IV Push, Q5MIN PRN, 4 doses, Starting on Fri04/07/23 at 1022, Until Discontinu ed, Routine, Pain (scale 4-6), PACU [facility] HYDROmorphO ne (DILAUDID) injection 0.2 mg 2022-05 16:22: 23 Yes .2mg 0.2 mg, Slow IV Push, Q5MIN PRN, 10 doses, Starting on Fri04/07/23 at 1022, Until Discontinu ed, Routine, Pain (scale 7-10), PACU
Us e approved by (Faculty): PACU USE -ANESTHESI A SERVICE-HY DROMORPHON E INJECTIONS [facility] ondansetron (ZOFRAN (PF)) injection 4 mg 2022-05 16:22: 23 04-07 16:26 :00 No 4mg 4 mg, Slow IV Push, PRN, 1 dose, Starting on Fri04/07/23 at 1022, Until Fri04/07/23 at 1026, Routine, Nausea and Vomiting (N/V), PACU [facility] ferric subsulfate (MONSEL'S) solution 2022-05 15:37: 00 04-07 16:01 :59 No PRN, Starting on Fri04/07/23 at 0937, Until Fri04/07/23 at 1001, Routine, Intra-op [facility] iodine strong (LUGOL'S) (LUGOL'S SOLUTION) 5 % solution 2022-05 15:29: 00 Yes PRN, Starting on Fri04/07/23 at 0929, Until Discontinu ed, Routine, Intra-op [facility] lidocaine-e pinephrine (XYLOCAINE WITH EPINEPHRINE ) 1 %-1:100,000 injection 2022-05 15:29: 00 04-07 16:01 :59 No PRN, Starting on Fri04/07/23 at 0929, Until Fri04/07/23 at 1001, Routine, [facility] solution 2022-05 15:28: 00 04-07 16:01 :59 No PRN, Starting on Fri04/07/23 at 0928, Until Fri04/07/23 at 1001, Intra-op [facility] lactated ringers IV infusion 1,000 mL 2022-05 13:45: 00 04-07 13:52 :00 No 1000mL at 42 mL/hr, 1,000 mL, IV Infusion, ONCE, 1 dose, On Fri04/07/23 at 0745, Routine, DSU Pre-op [facility] levonorgest reL (MIRENA) 20 mcg/24 hours (8 yrs) 52 mg IUD 2022-05 11:55: 20 Yes as directed [facility] ergocalcife rol, vitamin D2, (VITAMIN D ORAL) 2022-05 11:55: 20 Yes Take by mouth daily. [facility] HYDROCODONE BITARTRATE/ ACETAMINOPH E N 5-325 MG TABS 2022-05 00:00: 00 Yes Richard Arcos HYDROcodone -acetaminop hen 5-325 mg tablet 2022-05 00:00: 00 04-15 05:59 :00 No [id number] 1{tbl} Take 1 tablet by mouth every 6 (six) hours as needed for Pain (scale 4-6) or Pain (scale 7-10) for up to 7 days. Indication s: acute pain [facility] ergocalcife rol, vitamin D2, (VITAMIN D ORAL) 2022-05 11:11: 42 Yes Take by mouth daily. [facility] levonorgest reL (MIRENA) 20 mcg/24 hours (8 yrs) 52 mg IUD 2023-1 1-14 11:11: 42 Yes as directed [facility] VENLAFAXINE HCL ER 37.5 MG CAPSULE, EXT RELEASE 24 HR 2022-05 00:00: 00 Yes Richard Arcos hydrOXYzine 25 mg capsule 2022-05 00:00: 00 Yes 25mg Take 1 capsule by mouth at bedtime. [facility] VENLAFAXINE HYDROCHLORI DE ER 37.5 MG [...] 1 capsule by mouth in the morning. [facility] VENLAFAXINE HCL ER 37.5 MG CP24 [...] 01-14 00:00: 00 01-22 04:59 :00 No [id number] 1{tbl} Take 1 tablet by mouth in the morning and 1 tablet in the evening. Do all this for 7 days. [facility] TIZANIDINE HCL 2 MG TABS 01-07 00:00: 00 Yes Richard Arcos tiZANidine 2 mg capsule 01-07 00:00: 00 11-05 00:00 :00 No [id number] 2mg Take 1 capsule by mouth in the morning and 1 capsule at noon and 1 capsule in the evening. [facility] TAKE 1 CAPSULE ONCE DAILY WITH [...] 10-04 00:00: 00 01-07 00:00 :00 No [id number] 25mg Take 1 tablet by mouth in the morning and 1 tablet at noon and 1 tablet in the evening. Take with meals. [facility] TAKE 1 TABLET TWICE DAILY. 09-30 [...] morning and 1 tablet in the evening. [facility] VENLAFAXINE HCL ER 37.5 MG TABLET, EXTENDED RELEASE 24 HR 09-17 00:00: 00 Yes Richard Arcos TAKE 1 TABLET BY MOUTH ONCE DAILY 09-16 00:00: 00 09-24 00:00 :00 No 375 Richard Arcos levonorgest reL (MIRENA) 20 mcg/24 hours (8 yrs) 52 mg IUD 4-26 10:57: 03 Yes as directed [facility] Venlafaxine 37.5 mg TR24 09-02 00:00: 00 Yes 1{tbl} Take 1 tablet by mouth in the morning. [facility] hydrOXYzine 10 mg tablet 09-02 00:00: 00 11-05 00:00 :00 No 25mg Take 2.5 tablets by mouth at bedtime. [facility] TAKE 1 CAPSULE ONCE DAILY WITH FOOD. 09-02 00:00: 00 09-24 00:00 :00 No 75 Richard Arcos TAKE 1 TABLET TWICE DAILY NEEDED. 09-02 00:00: 00 09-24 00:00 :00 No 10 Richard Lorena Arcos TAKE 1 TABLET BY MOUTH ONCE DAILY 09-02 00:00: 00 09-24 00:00 :00 No 375 Richard F Isrrael TAKE 1 CAPSULE ONCE DAILY WITH FOOD. 08-21 00:00: 00 09-24 00:00 :00 No 75 Richardjose m Arcos TAKE 1 CAPSULE 3 TIMES DAILY NEEDED FOR ANXIETY. 08-21 00:00: 00 09-24 00:00 :00 No 25 Richard F Isrrael HYDROXYZINE PAMOATE 25 MG 08-21 00:00: 00 09-24 00:00 :00 No Ricahrd Lorena Arcos TAKE 1 TABLET TWICE DAILY NEEDED. - 00:00: 00 09-24 00:00 :00 No 10 Richard Lorena Arcos TAKE 1 CAPSULE ONCE DAILY WITH FOOD. -20 00:00: 00 09-24 00:00 :00 No 75 Richard F Isrrael TAKE 1 CAPSULE ONCE DAILY WITH FOOD. 3-06 00:00: 00 09-24 00:00 :00 No 75 Richard F Isrrael TAKE 1 CAPSULE ONCE DAILY WITH FOOD. 2-22 00:00: 00 09-24 00:00 :00 No 75 Richard F Isrrael VALACYCLOVI R HCL 1 GM TABS 2-13 00:00: 00 09-24 00:00 :00 No Richard Lorena Isrrael TAKE 1 CAPSULE BY MOUTH IN THE MORNING THEN 1 CAPSULE AT NOON AND 1 CAPSULE IN THE EVENING 07-01 00:00: 00 09-24 00:00 :00 Lizbet Arcos gabapentin 100 mg capsule 07-01 00:00: 00 10-04 00:00 :00 No [id number] 100mg Take 1 capsule by mouth in the morning and 1 capsule at noon and 1 capsule in the evening. [facility] valACYclovi r 1 gram tablet 07-01 00:00: 00 07-09 05:59 :00 No [id number] 1g Take 1 tablet by mouth in the morning and 1 tablet at noon and 1 tablet in the evening. Do all this for 7 days. [facility] metoprolol succinate XL 25 mg 24 hr tablet 06-24 15:18: 43 06-24 00:00 :00 No 1 tablet [facility] metformin ER 500 mg 24 hr tablet 06-24 15:18: 31 06-24 00:00 :00 No 1 tablet with evening meal [facility] citalopram 40 mg tablet 06-24 15:18: 21 06-24 00:00 :00 No 1 tablet [facility] levonorgest reL (MIRENA) 20 mcg/24 hours (8 yrs) 52 mg IUD 06-24 15:12: 55 Yes as directed [facility] busPIRone 5 mg tablet 05-29 00:00: 00 10-04 00:00 :00 No 5mg Take 1 tablet by mouth 2 (two) times daily as needed. [facility] ESCITALOPRA M OXALATE 20 MG TABS 2021-05 00:00: 00 09-24 00:00 :00 Lizbet Arcos TAKE 1 TABLET BY MOUTH EVERY 8 HOURS NEEDED FOR PAIN 2021-05 00:00: 00 09-24 00:00 :00 Lizbet Arcos CHLORHEXIDI NE GLUCONATE 0.12 % SOLN [...] IN THE MORNING 11-14 00:00: 00 Yes iRchard Arcos TAKE 1 TABLET BY MOUTH IN [...] 11-13 00:00: 00 06-24 00:00 :00 No [id number] 50ug Take 1 tablet by mouth every morning. [facility] Blood Pressure Monitor (BLOOD PRESSURE KIT) Kit 08-21 00:00: 00 Yes [id number] Use as directed [facility] Blood Pressure Monitor (BLOOD PRESSURE KIT) Kit 08-21 00:00: 00 04-01 00:00 :00 No [id number] Use as directed [facility] Vital Signs Vital Name Observation Time Observation Value Comments Bernard padilla Systolic blood pressure 2023-12-31 15:28:00 110 mm[Hg] [facility] Diastolic blood pressure 2023-12-31 15:28:00 68 mm[Hg] [facility] Heart rate 2023-12-31 15:28:00 84 /[facility] 2023-12-31 15:28:00 36.56 Elena [facility] Respiratory rate 2023-12-31 15:28:00 17 /min [facility] Body height 2023-12-31 15:28:00 170.2 cm [facility] weight 2023-12-31 15:28:00 133.675 kg Univ [facility] BMI 2023-12-31 15:28:00 46.16 kg/m2 Univ [facility] Systolic blood pressure 2023-11-06 12:45:00 109 mm[Hg] [facility] Diastolic blood pressure 2023-11-06 12:45:00 63 mm[Hg] [facility] Heart rate 2023-11-06 12:45:00 84 /min Unive [facility] Body temperature 2023-11-06 12:45:00 36.17 Elena [facility] Respiratory rate 2023-11-06 12:45:00 18 /min [facility] Body height 2023-11-06 12:45:00 170.2 cm Univ [facility] Body weight 2023-11-06 12:45:00 132.178 kg Univ [facility] BMI 2023-11-06 12:45:00 45.64 kg/m2 Univ [facility] Systolic blood pressure 2023-05-06 16:15:00 101 mm[Hg] [facility] Diastolic blood pressure 2023-05-06 16:15:00 69 mm[Hg] [facility] Heart rate 2023-05-06 16:15:00 73 /min Unive [facility] Body temperature 2023-05-06 16:15:00 36.28 Elena [facility] Body height 2023-05-06 16:15:00 170.2 cm Univ [facility] Body weight 2023-05-06 16:15:00 130.046 kg Univ [facility] BMI 2023-05-06 16:15:00 44.90 kg/m2 Univ [facility] Systolic blood pressure 2023-04-29 16:47:00 110 mm[Hg] [facility] Diastolic blood pressure 2023-04-29 16:47:00 61 mm[Hg] [facility] Heart rate 2023-04-29 16:47:00 76 /min Unive [facility] Respiratory rate 2023-04-29 16:47:00 18 /min [facility] Body height 2023-04-29 16:47:00 170.2 cm Univ [facility] Body weight 2023-04-29 16:47:00 127.914 kg [facility] BMI 2023-04-29 16:47:00 44.17 kg/m2 [facility] Systolic blood pressure 2023-04-23 19:51:00 117 mm[Hg] [facility] Diastolic blood pressure 2023-04-23 19:51:00 79 mm[Hg] [facility] Heart rate 2023-04-23 19:51:00 81 /min Unive [facility] Body height 2023-04-23 19:51:00 170.2 cm Univ [facility] Body weight 2023-04-23 19:51:00 127.506 kg [facility] BMI 2023-04-23 19:51:00 44.03 kg/m2 [facility] Oxygen saturation in Arterial blood by Pulse oximetry 2023-04-23 19:51:00 99 /min [facility] Heart rate 2023-04-07 16:54:00 71 /min Unive [facility] Oxygen saturation in Arterial blood by Pulse oximetry 2023-04-07 16:54:00 92 /min [facility] Systolic blood pressure 2023-04-07 16:53:00 115 mm[Hg] [facility] Diastolic blood pressure 2023-04-07 16:53:00 91 mm[Hg] [facility] Respiratory rate 2023-04-07 16:53:00 17 /min [facility] Body temperature 2023-04-07 16:03:00 36.44 Elena [facility] Body height 2023-03-31 20:00:00 170.2 cm Univ [facility] Body weight 2023-03-31 20:00:00 128.822 kg Univ [facility] BMI 2023-03-31 20:00:00 44.48 kg/m2 Univ [facility] Systolic blood pressure 2023-04-07 13:48:00 110 mm[Hg] [facility] Diastolic blood pressure 2023-04-07 13:48:00 75 mm[Hg] [facility] Heart rate 2023-04-07 13:48:00 75 /min Unive [facility] Body temperature 2023-04-07 13:48:00 36.67 Elena [facility] Respiratory rate 2023-04-07 13:48:00 17 /min [facility] Oxygen saturation in Arterial blood by Pulse oximetry 2023-04-07 13:48:00 100 /min [facility] Body height 2023-03-31 20:00:00 170.2 cm Univ [facility] Body weight 2023-03-31 20:00:00 128.822 kg [facility] BMI 2023-03-31 20:00:00 44.48 kg/m2 Univ [facility] Systolic blood pressure 2023-04-01 17:04:00 128 mm[Hg] [facility] Diastolic blood pressure 2023-04-01 17:04:00 83 mm[Hg] [facility] Heart rate 2023-04-01 17:04:00 65 /min [facility] 2023-04-01 17:04:00 36.61 Elena [facility] Respiratory rate 2023-04-01 17:04:00 16 /min [facility] Body height 2023-04-01 17:04:00 170.2 cm [facility] weight 2023-04-01 17:04:00 129.23 kg Univ [facility] BMI 2023-04-01 17:04:00 44.62 kg/m2 Univ [facility] Oxygen saturation in Arterial blood by Pulse oximetry 2023-04-01 17:04:00 97 /min [facility] Systolic blood pressure 2023-03-20 14:56:00 133 mm[Hg] [facility] Diastolic blood pressure 2023-03-20 14:56:00 59 mm[Hg] [facility] Heart rate 2023-03-20 14:56:00 64 /min Unive [facility] Body temperature 2023-03-20 14:56:00 36.72 Elena [facility] Respiratory rate 2023-03-20 14:56:00 16 /min [facility] Body height 2023-03-20 14:56:00 170.2 cm [facility] Body weight 2023-03-20 14:56:00 129.91 kg [facility] BMI 2023-03-20 14:56:00 44.86 kg/m2 [facility] Oxygen saturation in Arterial blood by Pulse oximetry 2023-03-20 14:56:00 97 /min [facility] Systolic blood pressure 2023-03-17 19:52:00 128 mm[Hg] [facility] Diastolic blood pressure 2023-03-17 19:52:00 63 mm[Hg] [facility] Heart rate 2023-03-17 19:52:00 78 /min Unive [facility] Body temperature 2023-03-17 19:52:00 36.39 Elena [facility] Respiratory rate 2023-03-17 19:52:00 17 /min [facility] Body height 2023-03-17 19:52:00 170.2 cm [facility] Body weight 2023-03-17 19:52:00 129.275 kg [facility] BMI 2023-03-17 19:52:00 44.64 kg/m2 [facility] Systolic blood pressure 2023-02-10 15:47:00 113 mm[Hg] [facility] Diastolic blood pressure 2023-02-10 15:47:00 78 mm[Hg] [facility] Heart rate 2023-02-10 15:47:00 66 /min Unive [facility] Respiratory rate 2023-02-10 15:47:00 18 /min [facility] Body height 2023-02-10 15:47:00 170.2 cm Univ [facility] Body weight 2023-02-10 15:47:00 128.277 kg Univ [facility] BMI 2023-02-10 15:47:00 44.29 kg/m2 Univ [facility] Oxygen saturation in Arterial blood by Pulse oximetry 2023-02-10 15:47:00 99 /min [facility] Systolic blood pressure 2023-01-14 14:57:00 107 mm[Hg] [facility] [place] Diastolic blood pressure 2023-01-14 14:57:00 73 mm[Hg] [facility] Heart rate 2023-01-14 14:57:00 98 /min Unive [facility] Body height 2023-01-14 14:57:00 170.2 cm [facility] Body weight 2023-01-14 14:57:00 127.461 kg Univ [facility] BMI 2023-01-14 14:57:00 44.01 kg/m2 [facility] Oxygen saturation in Arterial blood by Pulse oximetry 2023-01-14 14:57:00 100 /min [facility] Systolic blood pressure 2023-01-07 16:25:00 117 mm[Hg] [facility] Diastolic blood pressure 2023-01-07 16:25:00 71 mm[Hg] [facility] Heart rate 2023-01-07 16:25:00 65 /min Unive [facility] Body height 2023-01-07 16:25:00 170.2 cm Univ [facility] Body weight 2023-01-07 16:25:00 127.007 kg Univ [facility] BMI 2023-01-07 16:25:00 43.85 kg/m2 Univ [facility] Oxygen saturation in Arterial blood by Pulse oximetry 2023-01-07 16:25:00 98 /min [facility] Systolic blood pressure 2022-12-16 18:26:00 106 mm[Hg] [facility] Diastolic blood pressure 2022-12-16 18:26:00 74 mm[Hg] [facility] Heart rate 2022-12-16 18:26:00 75 /min [facility] Body height 2022-12-16 18:26:00 170.2 cm [facility] Body weight 2022-12-16 18:26:00 128.368 kg [facility] BMI 2022-12-16 18:26:00 44.32 kg/m2 Univ [facility] Oxygen saturation in Arterial blood by Pulse oximetry 2022-12-16 18:26:00 98 /min [facility] Systolic blood pressure 2022-11-20 16:50:00 122 mm[Hg] [facility] Diastolic blood pressure 2022-11-20 16:50:00 86 mm[Hg] [facility] Heart rate 2022-11-20 16:49:00 81 /min Unive [facility] Body height 2022-11-20 16:49:00 170.2 cm Univ [facility] Body weight 2022-11-20 16:49:00 130.182 kg Univ [facility] BMI 2022-11-20 16:49:00 44.95 kg/m2 Univ [facility] Oxygen saturation in Arterial blood by Pulse oximetry 2022-11-20 16:49:00 98 /min [facility] Systolic blood pressure 2022-10-30 16:30:00 103 mm[Hg] [facility] Diastolic blood pressure 2022-10-30 16:30:00 71 mm[Hg] [facility] Heart rate 2022-10-30 16:20:00 72 /min Unive [facility] Body temperature 2022-10-30 16:20:00 36.67 Elena [facility] Respiratory rate 2022-10-30 16:20:00 18 /min [facility] Body height 2022-10-30 16:20:00 170.2 cm Univ [facility] Body weight 2022-10-30 16:20:00 130.999 kg Univ [facility] BMI 2022-10-30 16:20:00 45.23 kg/m2 Univ [facility] Oxygen saturation in Arterial blood by Pulse oximetry 2022-10-30 16:20:00 97 /min [facility] Systolic blood pressure 2022-10-16 13:14:00 100 mm[Hg] [facility] Diastolic blood pressure 2022-10-16 13:14:00 70 mm[Hg] [facility] Heart rate 2022-10-16 13:14:00 75 /min Unive [facility] Body temperature 2022-10-16 13:14:00 36.78 Elena [facility] Body height 2022-10-16 13:14:00 170.2 cm Univ [facility] Body weight 2022-10-16 13:14:00 133.358 kg [facility] BMI 2022-10-16 13:14:00 46.05 kg/m2 Univ [facility] Oxygen saturation in Arterial blood by Pulse oximetry 2022-10-16 13:14:00 99 /min [facility] Systolic blood pressure 2022-10-07 16:29:00 103 mm[Hg] [facility] Diastolic blood pressure 2022-10-07 16:29:00 81 mm[Hg] [facility] Heart rate 2022-10-07 16:29:00 70 /min Unive [facility] Body temperature 2022-10-07 16:29:00 36.83 Elena [facility] Respiratory rate 2022-10-07 16:29:00 20 /min [facility] Body height 2022-10-07 16:29:00 173.7 cm [facility] Body weight 2022-10-07 16:29:00 134.401 kg [facility] BMI 2022-10-07 16:29:00 44.53 kg/m2 [facility] Oxygen saturation in Arterial blood by Pulse oximetry 2022-10-07 16:29:00 100 /min [facility] Systolic blood pressure 2022-10-04 18:57:00 98 mm[Hg] [facility] Diastolic blood pressure 2022-10-04 18:57:00 78 mm[Hg] [facility] Heart rate 2022-10-04 18:56:00 77 /min Unive [facility] Body temperature 2022-10-04 18:56:00 37 Elena [facility] Body height 2022-10-04 18:56:00 170.2 cm Univ [facility] Body weight 2022-10-04 18:56:00 133.811 kg Univ [facility] BMI 2022-10-04 18:56:00 46.20 kg/m2 Univ [facility] Systolic blood pressure 2022-09-11 15:46:00 112 mm[Hg] [facility] [facility] Diastolic blood pressure 2022-09-11 15:46:00 79 mm[Hg] [facility] Heart rate 2022-09-11 15:46:00 65 /min Unive [facility] Body temperature 2022-09-11 15:46:00 36.17 Elena [facility] Respiratory rate 2022-09-11 15:46:00 18 /min [facility] Body height 2022-09-11 15:46:00 170.2 cm [facility] Body weight 2022-09-11 15:46:00 134.265 kg [facility] BMI 2022-09-11 15:46:00 46.36 kg/m2 [facility] Oxygen saturation in Arterial blood by Pulse oximetry 2022-09-11 15:46:00 98 /min r/a [facility] Systolic blood pressure 2022-07-01 21:35:00 107 mm[Hg] [facility] Diastolic blood pressure 2022-07-01 21:35:00 60 mm[Hg] [facility] Heart rate 2022-07-01 21:35:00 81 /min Unive [facility] Body temperature 2022-07-01 21:35:00 37.33 Elena [facility] Body height 2022-07-01 21:35:00 170.2 cm Univ [facility] Body weight 2022-07-01 21:35:00 136.079 kg Univ [facility] BMI 2022-07-01 21:35:00 46.99 kg/m2 [facility] Oxygen saturation in Arterial blood by Pulse oximetry 2022-07-01 21:35:00 98 /min [place] [facility] Body height 2022-06-24 21:13:00 170.2 cm [facility] Body weight 2022-06-24 21:13:00 136.533 kg [facility] BMI 2022-06-24 21:13:00 47.14 kg/m2 [facility] Oxygen saturation in Arterial blood by Pulse oximetry 2022-06-24 21:13:00 99 /min [place] [facility] Systolic blood pressure 2022-06-24 21:13:00 97 mm[Hg] [facility] Diastolic blood pressure 2022-06-24 21:13:00 64 mm[Hg] [place] [facility] Heart rate 2022-06-24 21:13:00 73 /min [facility] Body temperature 2022-06-24 21:13:00 36.83 Elena [facility] BP Systolic 2025-01-27 11:26:00 124 mm[Hg] Step hen F Isrrael BP Diastolic 2025-01-27 11:26:00 83 mm[Hg] Dennys phen F Isrrael Weight Measured 2025-01-27 11:26:00 280.20 pounds Richardjose m Arcos Height Measured 2025-01-27 11:26:00 67.50 inches Richard F [facility] Body Temperature 2025-01-27 11:26:00 98.00 degrees Richard F Isrrael Heart Rate 2025-01-27 11:26:00 85.00 /min Francisca en F [facility]rael Respiratory Rate 2025-01-27 11:26:00 Richard F Isrrael BP Systolic 2025-01-20 15:06:00 92 mm[Hg] Step hen F [facility]rael BP Diastolic 2025-01-20 15:06:00 66 mm[Hg] Dennys phen F Isrrael Weight Measured 2025-01-20 15:06:00 285.40 pounds Richard F Isrrael Height Measured 2025-01-20 15:06:00 67.50 inches Richard F [facility] Body Temperature 2025-01-20 15:06:00 97.90 degrees Richard F Isrrael Heart Rate 2025-01-20 15:06:00 98.00 /min Francisca en F [facility]rrael Respiratory Rate 2025-01-20 15:06:00 18.00 /min Richard F Isrrael BP Systolic 2025-01-11 11:41:00 121 mm[Hg] Step hen F Isrrael BP Diastolic 2025-01-11 11:41:00 87 mm[Hg] Dennys phen F Isrrael Weight Measured 2025-01-11 11:41:00 280.60 pounds Richard F Isrrael Height Measured 2025-01-11 11:41:00 67.50 inches Richard F [facility] Body Temperature 2025-01-11 11:41:00 98.50 degrees Richard F Isrrael Heart Rate 2025-01-11 11:41:00 88.00 /min Francisca en F Isrrael Respiratory Rate 2025-01-11 11:41:00 18.00 /min Richard F Isrrael BP Systolic 2024-12-30 10:48:00 111 mm[Hg] Step [...] Rate 2024-12-28 10:07:00 18.00 /min Richard F Isrrael BP Systolic 2024-12-14 11:20:00 100 mm[Hg] Step [...] Source CERVICAL CONIZATION 2023-04-07 14:54:00 Bárbara Hernandez [facility] DSU PRE-OP 2023-04-01 06:01:00 Doctor Unass igned, [place] [facility] INSURANCE CORRESPONDENCE 2023-03-27 06:01:00 Doc tor Unassigned, [place] [facility] INSURANCE CORRESPONDENCE 2023-03-27 06:01:00 Doc tor Unassigned, [place] [facility] DISCLOSURE AND CONSENT MEDICAL & SURGICAL PROCEDURES - FEMALM 2023-03-17 05:01:00 Doctor Unassigned, [place] [facility] POCT TEST 2023-03-17 00:00:00 Bárbara Hernandez [facility] DISABILITY/FMLA 2023-01-21 05:01:00 Doctor Unass igned, [place] [facility] XR FOOT 3+ VW RIGHT 2023-01-07 18:06:01 Criss Leyva [facility] POCT TEST 2023-01-07 17:03:00 Criss Leyva [facility] SLEEP STUDY DATA REPORT 2022-11-14 05:01:00 Doct or Unassigned, [place] [facility] LAB ONLY PAP SMEAR-LIQUID BASED 2022-10-16 14:06:00 Criss Leyva [facility] GALV ONLY - VAGINAL PATHOGENS BY NUCLEIC ACID TESTING 2022-10-16 14:06:00 Criss Leyva [facility] PAP SMEAR-LIQUID BASED-CP 2022-10-16 14:06:00 Preet Leyva [facility] POCT TEST 2022-10-04 20:08:00 Criss Leyva [facility] VITAMIN B12, LEVEL 2022-09-11 16:30:00 Jelly Waters [facility] FREE T4 2022-09-11 16:30:00 Jelly Waters [facility] THYROID STIMULATING HORMONE 2022-09-11 16:30:00 Jelly Waters [facility] URINALYSIS 2022-09-11 16:30:00 Jelly Waters [facility] ANTI-SSB(LA) 2022-09-11 16:30:00 Jelly Waters [facility] ANTI-DOUBLE STRANDED DNA 2022-09-11 16:30:00 Alejandro Waters [facility] C-REACTIVE PROTEIN 2022-07-01 22:27:00 Criss Leyva Un [facility] SEDIMENTATION RATE 2022-07-01 22:27:00 Criss Leyva Un [facility] VITAMIN D, 25-OH 2022-07-01 22:27:00 Criss Leyva [facility] CONSENT/REFUSAL FOR DIAGNOSIS AND TREATMENT 2022-06-24 20:59:39 Doctor Unassigned, [place] [facility] ASSIGNMENT OF BENEFITS 2022-06-24 20:59:23 Docto r Unassigned, [place] [facility] FREE T4 2018-12-22 22:15:00 Jeannie Mendieta [facility] THYROID STIMULATING HORMONE 2018-12-22 22:15:00 Jeannie Mendieta [facility] ASSIGNMENT OF BENEFITS 2018-12-22 21:51:15 Dochunter r Unassigned, [place] [facility] Encounters Start Date/Time End Date/Time Encounter Type Admission Type Attending [facility] Care Facility Care Department Encounter ID Source 2023-05-06 12:35:02 Outpatient R BRENNEN WAGNER [facility] [id number] [facility] 2025-02-10 10:38:45 2025-02-10 10:38:[address] [facility] [id number] Richard Carrillo Isrrael 2025-01-27 10:58:21 2025-01-27 10:58:[address] [facility] [id number] Richard Carrillo Isrrael 2025-01-27 00:00:00 2025-01-27 00:00:[address] [facility] [id number] Richard Carrillo Isrrael 2025-01-20 15:01:26 2025-01-20 15:01:[address] [facility] [id number] Richard Carrillo Isrrael 2025-01-20 00:00:00 2025-01-20 00:00:[address] [facility] [id number] Richard Carrillo Isrrael 2025-01-11 11:36:35 2025-01-11 11:36:35 Outpatient SFA [facility] [id number] Richard Arcos 2025-01-11 00:00:00 2025-01-11 00:00:00 Outpatient Visit SFA [id number] Richard Arcos 2025-01-05 10:59:15 2025-01-05 10:59:15 Outpatient SFA [facility] [id number] Richard Arcos 2025-01-05 00:00:00 2025-01-05 00:00:00 Outpatient Visit S[facility] [id number] Richard Arcos 2025-01-05 00:00:00 2025-01-05 00:00:00 Outpatient Visit S[facility] [id number] Richard Arcos 2024-12-30 10:37:50 2024-12-30 10:37:50 Outpatient SFA [facility] [id number] Richard Arcos 2024-12-30 00:00:00 2024-12-30 00:00:00 Outpatient Visit SFA [id number] Richard Arcos 2024-12-28 00:00:00 2024-12-28 00:00:00 Outpatient Visit S[facility] [id number] Richard Arcos 2024-12-27 08:35:54 2024-12-27 08:35:54 Outpatient SFA [facility] [id number] Richard Arcos 2024-12-14 11:08:43 2024-12-14 11:08:43 Outpatient SFA [facility] [id number] Richard Arcos 2024-12-14 00:00:00 2024-12-14 00:00:00 Outpatient Visit SFA [id number] Richard Arcos 2024-12-07 09:30:40 2024-12-07 09:30:40 Outpatient SFA SFA [id number] Richard Arcos 2024-11-26 00:00:00 2024-11-26 00:00:00 Outpatient Visit SFA [id number] Richard Arcos 2024-09-16 14:50:18 2024-09-16 14:50:18 Outpatient SFA SFA [id number] Richard Arcos 2024-09-16 00:00:00 2024-09-16 00:00:00 Outpatient Visit SFA [id number] Richard Arcos 2024-08-30 15:44:14 2024-08-30 15:44:14 Outpatient SFA SFA [id number] Richard Arcos 2024-08-30 00:00:00 2024-08-30 00:00:00 Outpatient Visit SFA [id number] Richard Arcos 2024-08-19 08:29:39 2024-08-19 08:29:39 Outpatient SFA S[facility] [id number] Richard Arcos 2024-08-18 15:28:41 2024-08-18 15:28:41 Outpatient SFA S[facility] [id number] Richard Arcos 2024-08-18 00:00:00 2024-08-18 00:00:00 Outpatient Visit SFA [id number] Richard Arcos 2024-07-19 09:17:44 2024-07-19 09:17:44 Outpatient SFA SFA [id number] Richard Arcos 2024-07-10 10:04:32 2024-07-10 10:04:32 Outpatient SFA SFA [id number] Richard Arcos 2024-07-09 11:01:34 2024-07-09 11:01:[address] [facility] [id number] Richard Arcos 2024-06-21 08:25:59 2024-06-21 08:25:[address] [facility] [id number] Richard Arcos 2024-02-23 00:00:00 2024-03-27 18:24:07 Patient Secure Msg Leyva [facility] 1..840.114 [id number] [id number] [facility] 2024-03-23 09:27:15 2024-03-23 09:27:[address] [facility] [id number] Richard Arcos 2024-02-21 00:00:00 2024-02-23 15:55:27 Patient Secure Msg Leyva [facility] 1..840.114 350.1.13.10 [id number] [facility] 2023-12-31 10:30:00 2023-12-31 10:45:22 Outpatient R MARJORIE BENÍTEZ [facility] [id number] [facility] 2023-12-31 10:30:00 2023-12-31 10:45:22 Office Visit Marjorie Benítez [facility] ADMINISTRATIVE SUPPORT CLERK [facility] 1..840.114 350.1.13.10 [id number] [facility] 2023-12-25 10:07:46 2023-12-25 10:07:46 Outpatient SFA SFA [id number] Richard Arcos 2023-12-22 00:00:00 2023-12-23 09:24:19 Telephone Marjorie Benítez [facility] ADMINISTRATIVE SUPPORT CLERK [facility] 1..840.114 350.1.13.10 [id number] [facility] 2023-12-22 10:30:00 2023-12-22 10:30:00 Outpatient R MARJORIE BENÍTEZ [facility] [id number] [facility] 2023-11-06 07:45:00 2023-11-06 08:33:44 [id number] 2023-11-06 07:45:00 2023-11-06 08:33:44 Office Visit Marjorie Benítez [facility] ADMINISTRATIVE SUPPORT CLERK [facility] 1..840.114 350.1.13.10 4.2.7.2.686 [id number] [facility] 2023-11-04 08:30:00 2023-11-04 08:30:00 Outpatient R NAOMI-TD S, BÁRBARA SALGADO-TD S, BÁRBARA [facility] [id number] [facility] 2023-10-28 08:30:00 2023-10-28 08:30:00 Outpatient R SALGADO-TD S, BÁRBARA SALGADO-TD S, BÁRBARA [facility] [id number] [facility] 2023-10-27 17:28:24 2023-10-27 17:28:24 Outpatient SFA SFA [id number] Richard F Isrrael 2023-10-24 15:16:43 2023-10-24 15:16:43 Outpatient SFA SFA [id number] Richard F Isrrael 2023-08-27 11:41:54 2023-08-27 11:41:54 Outpatient SFA SFA [id number] Richard F Isrrael 2023-08-11 00:00:00 2023-08-11 00:00:00 Telephone Criss Leyva [facility] 1.2.840.114 350.1.13.10 4.2.7.2.686 [id number] [facility] 2023-07-06 00:00:00 2023-07-06 00:00:00 Refill Autumn [facility] 1.2840.114 350.1.13.10 4.2.7.2.686 [id number] 044 [id number] [facility] 2023-05-06 10:58:37 2023-05-06 23:59:00 Outpatient R [facility] [id number] [facility] 2023-05-06 10:40:00 2023-05-06 23:59:00 Hospital Encounter Wagner [facility] 1.2840.114 350.1.13.10 4.2.7.2.686 [id number] [facility] 2023-05-06 10:10:00 2023-05-06 11:34:54 Office Visit An [facility] 1.2840.114 350.1.13.10 4.2.7.2.686 [id number] [facility] 2023-05-06 00:00:00 2023-05-06 00:00:00 Patient Secure Msg Wagner [facility] MEDICAL OFFICE BUILDING 1.2840.114 350.1.13.10 4.2.7.2.686 [id number] [facility] 2023-05-05 00:00:00 2023-05-05 00:00:00 Telephone VikaCriss ram [facility] 1.284.114 350.1.13.10 4.2.7.2.686 [id number] [id number] [facility] 2023-04-29 11:00:00 2023-04-29 11:00:00 Office Visit Bárbara Sanchez [facility] 1.20.114 350.1.13.10 4.2.7.2.686 [id number] [facility] 2023-04-29 11:00:00 2023-04-29 10:55:42 Outpatient R SALGADO-TD S, BRÁBARA SALGADO-TD S, BÁRBARA [facility] [id number] [facility] 2023-04-28 00:00:00 2023-04-28 00:00:00 Telephone Criss Leyva [facility] 1..840.114 350.1.13.10 4.2.7.2.686 [id number] [facility] 2023-04-23 14:30:00 2023-04-23 14:45:00 Signal Wirer Visit Lab, Price - Nicolas Sandyyo [facility] MEDICAL OFFICE BUILDING 1.840.114 350.1.13.10 4.2.7.2.686 [id number] [facility] 2023-04-23 14:00:00 2023-04-23 14:23:47 Outpatient R CRISS LEYVA [facility] [id number] [facility] 2023-04-23 14:00:00 2023-04-23 14:23:47 Office Visit Autumn [facility] MEDICAL OFFICE BUILDING 1.840.114 350.1.13.10 4.2.7.2.686 [id number] 044 [id number] [facility] 2023-04-08 13:01:17 2023-04-08 13:01:17 Outpatient [facility] [id number] Richard Arcos 2023-04-07 07:33:00 2023-04-07 11:00:00 Hospital Encounter Salgado-Td s, Bárbara [facility] 1.840.114 350.1.13.10 4.2.7.2.686 [id number] [id number] [facility] 2023-04-07 07:33:00 2023-04-07 11:00:00 Outpatient R SALGADO-TD S, BÁRBARA SALGADO-TD S, BÁRBARA [facility] MINERAL WOOL INSULATION SUPERVISOR [id number] [facility] 2023-04-07 08:39:00 2023-04-07 09:58:00 Surgery Salgado-Td s, Bárbara [facility] 1.840.114 350.1.13.10 4.2.7.2.686 [id number] [facility] 2023-04-05 10:45:00 2023-04-05 11:00:00 Signal Wirer Visit Pob, Adc Lab Main Salgado-Td s, Bárbara [facility] 1.840.114 350.1.13.10 4.2.7.2.686 [id number] [facility] 2023-04-05 10:45:00 2023-04-05 10:45:00 Outpatient R SALGADO-TD S, BÁRBARA SALGADO-TD S, BÁRBARA [facility] [id number] [facility] 2023-04-01 11:00:00 2023-04-01 11:30:00 Office Visit Salgado-Td s Bárbara [facility] 1.840.114 350.1.13.10 4.2.7.2.686 [id number] [facility] 2023-04-01 11:00:00 2023-04-01 11:00:00 Outpatient R SALGADO-TD S, BÁRBARA SALGADO-TD S, BÁRBARA [facility] [id number] [facility] 2023-04-01 00:00:00 2023-04-01 00:00:00 Orders Only Doctor Unassigned, [place] [facility] 1.840.114 350.1.13.10 4.2.7.2.686 [id number] [facility] 2023-03-20 10:00:00 2023-03-20 10:30:00 Office Visit Lorie Sanchezsol [facility] 1..114 350.1.13.10 4.2.7.2.686 [id number] [facility] 2023-03-20 10:00:00 2023-03-20 10:00:00 Outpatient R SALGADO-TD S, BÁRBARA SALGADO-TD S, BÁRBARA [facility] [id number] [facility] 2023-03-19 20:00:00 2023-03-19 20:00:00 Outpatient R RONAKKEIRY, ANGIEL BRISA YESSYVTL [facility] [id number] [facility] 2023-03-19 00:00:00 2023-03-19 00:00:00 Patient Secure Msg Salgado-Td sLorieBárbara [facility] 1..840.114 350.1.13.10 4.2.7.2.686 [id number] [facility] 2023-03-17 14:30:00 2023-03-17 15:29:16 Outpatient R SALGADO-TD S, BÁRBARA SALGADO-TD S, BÁRBARA [facility] [id number] [facility] 2023-03-17 14:30:00 2023-03-17 15:29:16 Office Visit Salgado-Td sLorieBárbara [facility] BUILDING 1.840.114 350.1.13.10 4.2.7.2.686 [id number] [facility] 2023-03-17 00:00:00 2023-03-17 00:00:00 Orders Only Doctor Unassigned, [place] [facility] 1.2.840.114 350.1.13.10 4.2.7.2.686 [id number] [facility] 2023-03-13 16:03:07 2023-03-13 16:03:07 Outpatient [facility] [id number] Richard Arcos 2023-03-10 00:00:00 2023-03-10 00:00:00 Patient Secure Msg Doctor Unassigned, [place] [facility] MEDICAL OFFICE BUILDING 1..840.114 350.1.13.10 4.2.7.2.686 [id number] [facility] 2023-02-26 11:00:00 2023-02-26 23:59:00 Outpatient LANG PEREZ HOWARD [facility] [id number] [facility] 2023-02-26 11:00:00 2023-02-26 23:59:00 Hospital Encounter [facility] Eeg RUEL [facility] 1.2.840.114 350.1.13.10 4.2.7.2.686 [id number] [facility] 2023-02-18 00:00:00 2023-02-18 00:00:00 Patient Secure Msg Doctor Unassigned, [place] [facility]EL [facility] 1.2.840.114 350.1.13.10 4.2.7.2.686 [id number] [facility] 2023-02-13 15:21:55 2023-02-13 15:21:55 Outpatient [facility] [id number] Richard Arcos 2023-02-10 10:40:00 2023-02-10 11:23:05 Outpatient LANG PEREZ HOWARD [facility] [id number] [facility] 2023-02-10 10:40:00 2023-02-10 11:23:05 Office Visit Lang Jackson [facility] MEDICAL OFFICE BUILDING 1..840.114 350.1.13.10 4.2.7.2.686 [id number] [facility] 2023-01-21 00:00:00 2023-01-21 00:00:00 Orders Only Doctor Unassigned, [place] [facility] 1.840.114 350.1.13.10 4.2.7.2.686 [id number] [facility] 2023-01-14 15:31:53 2023-01-14 15:31:[address] [facility] [id number] Richard Arcos 2023-01-14 13:30:00 2023-01-14 13:30:00 Outpatient R CRISS LEYVA [facility] [id number] [facility] 2023-01-14 10:00:00 2023-01-14 10:38:59 Outpatient R CRISS LEYVA [facility] [id number] [facility] 2023-01-14 10:00:00 2023-01-14 10:38:59 Office Visit Autumn Criss [facility] MEDICAL OFFICE BUILDING 1.2.840.114 350.1.13.10 4.2.7.2.686 [id number] 044 [id number] [facility] 2023-01-08 08:06:42 2023-01-08 08:06:[address] [facility] [id number] Richard Arcos 2023-01-08 00:00:00 2023-01-08 00:00:00 Telephone Autumn Criss [facility] MEDICAL OFFICE BUILDING 1..840.114 350.1.13.10 4.2.7.2.686 [id number] [id number] [facility] 2023-01-07 12:51:56 2023-01-07 23:59:00 Outpatient R CRISS LEYVA [facility] [id number] [facility] 2023-01-07 12:51:56 2023-01-07 23:59:00 Hospital Encounter Criss Leyva [facility] 1.2.840.114 350.1.13.10 4.2.7.2.686 [id number] [facility] 2023-01-07 12:15:00 2023-01-07 12:30:00 Signal Wirer Visit Lab, Price - [facility] MED[facility] OFF[facility] BUILD[facility] 1.2.840.114 350.1.13.10 4.2.7.2.686 [id number] [facility] 2023-01-07 11:30:00 2023-01-07 12:00:00 Office Visit Criss Leyva [facility] MED[facility] OFF[facility] BUILD[facility] 1.2.840.114 350.1.13.10 4.2.7.2.686 [id number] 044 [id number] [facility] 2022-12-26 00:00:00 2022-12-26 00:00:00 Patient Secure Msg Criss Leyva [facility] MED[facility] OFF[facility] BUILD[facility] 1.2.840.114 350.1.13.10 4.2.7.2.686 [id number] 044 [id number] [facility] 2022-12-21 00:00:00 2022-12-21 00:00:00 Patient Secure Msg Criss Leyva [facility] MED[facility] OFF[facility] BUILD[facility] 1.2840.114 350.1.13.10 4.2.7.2.686 [id number] [id number] [facility] 2022-12-18 08:20:49 2022-12-18 08:20:49 Outpatient SFA JOHNATHAN [id number] Richard Carrillo Isrrael 2022-12-16 13:30:00 2022-12-16 14:07:58 Outpatient R CRISS LEYVA [facility] [id number] [facility] 2022-12-16 13:30:00 2022-12-16 14:07:58 Office Visit Criss Leyva [facility] 1.2.840.114 350.1.13.10 4.2.7.2.686 [id number] 044 [id number] [facility] 2022-11-22 00:00:00 2022-11-22 00:00:00 Telephone Criss Leyva [facility] MED[facility] OFF[facility] BU[facility] 1.84.114 350.1.13.10 4.2.7.2.686 [id number] [id number] [facility] 2022-11-21 00:00:00 2022-11-21 00:00:00 Patient Secure Mandy Herron [facility] 1.84.114 350.1.13.10 4.2.7.2.686 [id number] [facility] 2022-11-20 11:30:00 2022-11-20 12:00:00 Office Visit Criss Leyva [facility] 1.284.114 350.1.13.10 4.2.7.2.686 [id number] 044 [id number] [facility] 2022-11-20 11:30:00 2022-11-20 11:30:00 Outpatient R CRISS LEYVA [facility] [id number] [facility] 2022-11-14 20:00:00 2022-11-14 22:30:00 Signal Wirer Visit 1, [facility] Sleep Lab Bed Manda Atkinson [facility] 1.84.114 350.1.13.10 4.2.7.2.686 [id number] [facility] 2022-11-14 20:00:00 2022-11-14 20:00:00 Outpatient R RONAKRASHARDKENNETHMANDA RONAKRASHARDMANDA COOPER [facility] [id number] [facility] 2022-11-14 00:00:00 2022-11-14 00:00:00 Orders Only Doctor Unassigned, [place] [facility] 1.2.840.114 350.1.13.10 4.2.7.2.686 [id number] [facility] 2022-10-30 11:30:00 2022-10-30 12:00:00 Office Visit Mandy Wagner [facility] 1.2840.114 350.1.13.10 4.2.7.2.686 [id number] [id number] [facility] 2022-10-30 11:30:00 2022-10-30 11:30:00 Outpatient R MANDY WAGNER [facility] [id number] [facility] 2022-10-29 00:00:00 2022-10-29 00:00:00 Patient Secure Msg Autumn [facility] MEDICAL OFFICE BUILDING 1.2.840.114 350.1.13.10 4.2.7.2.686 [id number] 044 [id number] [facility] 2022-10-16 08:00:00 2022-10-16 14:55:11 Office [facility] 1.2.840.114 350.1.13.10 4.2.7.2.686 [id number] [id number] [facility] 2022-10-16 08:00:00 2022-10-16 14:55:11 Outpatient R CRISS LEYVA [facility] [id number] [facility] 2022-10-07 11:30:00 2022-10-07 11:55:18 Outpatient R CRISS LEYVA [facility] [id number] [facility] 2022-10-07 11:30:00 2022-10-07 11:55:18 Office Visit Criss Leyva [facility] OFF[facility] BUILD[facility] 1.2.840.114 350.1.13.10 4.2.7.2.686 [id number] 044 [id number] [facility] 2022-10-04 14:49:29 2022-10-04 23:59:00 Outpatient R CRISS LEYVA [facility] [id number] [facility] 2022-10-04 13:30:00 2022-10-04 14:50:33 Office Visit Criss Leyva [facility] 1.2.840.114 350.1.13.10 4.2.7.2.686 [id number] 044 [id number] [facility] 2022-09-23 00:00:00 2022-09-23 00:00:00 Patient Secure Msg Criss Leyva [facility] 1.2.840.114 350.1.13.10 4.2.7.2.686 [id number] 044 [id number] [facility] 2022-09-23 00:00:00 2022-09-23 00:00:00 Telephone Criss Leyva [facility] MEDICAL OFFICE BUILDING 1.2.840.114 350.1.13.10 4.2.7.2.686 [id number] 044 [id number] [facility] 2022-09-11 13:30:00 2022-09-11 13:45:00 Signal Wirer Visit Pcp-Jelly Orozco [facility] 1.2.840.114 350.1.13.10 4.2.7.2.686 [id number] [facility] 2022-09-11 10:45:00 2022-09-11 11:19:19 Outpatient JELLY ZIMMERMAN [facility] [id number] [facility] 2022-09-11 10:45:00 2022-09-11 11:19:19 Office Visit Jelly Waters [facility] 1.840.114 350.1.13.10 4.2.7.2.686 [id number] [facility] 2022-08-27 15:15:00 2022-08-27 15:15:00 Outpatient ELIZA GIORDANO [facility] [id number] [facility] 2022-08-14 15:15:00 2022-08-14 16:00:00 Ancillary Visit Moraima Gramajo 1, [employer] Zuleyma Rivas [facility] [employer] [facility] B[facility]. 1.840.114 350.1.13.10 4.2.7.2.686 [id number] [facility] 2022-08-14 15:15:00 2022-08-14 15:15:00 Outpatient ZULEYMA MUNOZ [facility] [id number] [facility] 2022-08-06 13:45:00 2022-08-06 13:45:00 Outpatient ZULEYMA MUNOZ [facility] [id number] [facility] 2022-08-06 00:00:00 2022-08-06 00:00:00 Patient Secure Msg Doctor Unassigned, [place] [facility] .0.114 350.1.13.10 4.2.7.2.686 [id number] [facility] 2022-07-12 00:00:00 2022-07-12 00:00:00 Telephone Criss Leyva [facility] 1.840.114 350.1.13.10 4.2.7.2.686 [id number] 044 [id number] [facility] 2022-07-08 00:00:00 2022-07-08 00:00:00 Patient Secure Msg Doctor Unassigned, [place] [facility] OFF[facility] BUILDING 1.2840.114 350.1.13.10 4.2.7.2.686 [id number] 044 [id number] [facility] 2022-07-05 00:00:00 2022-07-05 00:00:00 Telephone Criss Leyva [facility] 1.2840.114 350.1.13.10 4.2.7.2.686 [id number] 044 [id number] [facility] 2022-07-05 00:00:00 2022-07-05 00:00:00 Telephone Criss Leyva [facility] 1.840.114 350.1.13.10 4.2.7.2.686 [id number] 044 [id number] [facility] 2022-07-01 16:30:00 2022-07-01 17:25:44 Outpatient R VIKACRISS Ram [facility] [id number] [facility] 2022-07-01 16:30:00 2022-07-01 17:25:44 Signal Wirer Visit Lab, Price SandyCriss ram [facility] MED[facility] OFF[facility] BU[facility] 1.840.114 350.1.13.10 4.2.7.2.686 [id number] [facility] 2022-07-01 15:30:00 2022-07-01 16:17:16 Office Visit VikaCriss ram [facility] MED[facility] 1.2840.114 350.1.13.10 4.2.7.2.686 [id number] 044 [id number] [facility] 2022-06-24 16:00:00 2022-06-24 16:15:00 Signal Wirer Visit Lab, Price LeyvaCriss [facility] 1.84.114 350.1.13.10 4.2.7.2.686 [id number] [facility] 2022-06-24 15:00:00 2022-06-24 15:44:54 Outpatient R CRISS LEYVA [facility] [id number] [facility] 2022-06-24 15:00:00 2022-06-24 15:44:54 Office Visit Criss Leyva [facility] 1.840.114 350.1.13.10 4.2.7.2.686 [id number] [id number] [facility] 2022-06-24 00:00:00 2022-06-24 00:00:00 Orders Only Doctor Unassigned, [place] [facility] 1.84.114 350.1.13.10 4.2.7.2.686 [id number] [facility] 2020-12-14 14:30:00 2020-12-14 14:30:00 Outpatient R SYDNI CAO [facility] [id number] [facility] 2018-12-31 00:00:00 2018-12-31 00:00:00 Telephone [facility] 1.840.114 350.1.13.10 4.2.7.2.686 [id number] 2018-12-31 00:00:00 2018-12-31 00:00:00 Telephone [facility] 1.840.114 350.1.13.10 4.2.7.2.686 [id number] 220 [id number] [facility] 2018-12-29 00:00:00 2018-12-29 00:00:00 Telephone Ju[facility]rezOzzie [facility] 1.840.114 350.1.13.10 4.2.7.2.686 [id number] 220 [id number] [facility] 2018-12-29 00:00:00 2018-12-29 00:00:00 Telephone Ozzie Juárez [facility] Professio nal Building 1.2.840.114 350.1.13.10 4.2.7.2.686 [id number] 2018-12-28 00:00:00 2018-12-28 00:00:00 Telephone [facility] 1.2.840.114 350.1.13.10 4.2.7.2.686 [id number] [facility] 2018-12-28 00:00:00 2018-12-28 00:00:00 Telephone Ozzie Juárez [facility] 1.2.840.114 350.1.13.10 4.2.7.2.686 [id number] 220 [id number] 2018-12-22 16:50:48 2018-12-24 21:42:12 Signal Wirer Visit 1, Adc Lab [facility] 1.2.840.114 350.1.13.10 4.2.7.2.686 [id number] 353 [id number] 2018-12-22 16:50:48 2018-12-24 21:42:12 Signal Wirer Visit 1, Adc Lab Ozzie Juárez [facility] 1.2.840.114 350.1.13.10 4.2.7.2.686 [id number] [facility] 2018-12-22 00:00:00 2018-12-22 00:00:00 Orders Only Doctor Unassigned, [place] [facility] 1.2.840.114 350.1.13.10 4.2.7.2.686 [id number] [facility] 2018-12-21 00:00:00 2018-12-21 00:00:00 [facility]phone [facility] 1.2.840.114 350.1.13.10 4.2.7.2.686 [id number] [facility] 2018-12-18 00:00:00 2018-12-18 00:00:00 Telephone Ozzie Juárez [facility] 1.2.840.114 350.1.13.10 4.2.7.2.686 [id number] [facility] Results Test Description Test Time Test Comments Results Result Co mments Source Richard ArcosTHINPREP TIS PAP AND HPV mRNA E6/E7 WITH REFLEX TO HPV 16,18/45 2025-01-03 00:00:00* Test Item Value Reference Range Interpretation Comme nts REPORT STATUS: (test code = 8251-1) DNR GENERAL CATEGORIZATION: (blossom t code = 86232-1) DNR INFECTION: (test code = 38681-3) DNR REVIEW CHILLER OPERATOR: (te st code = 03907-6) DNR PATHOLOGIST: (test code = 06825-4) DNR HPV mRNA E6/E7 (test code = 91976-7) Not Detected Richard AguirreNP TIS PAP AND HPV mRNA E6/E7 WITH REFLEX TO HPV 16,18/45 2025-01-03 00:00:00* Test Item Value Reference Range Interpretation Comme nts REPORT STATUS: (test code = 8251-1) DNR GENERAL CATEGORIZATION: (blossom t code = 43406-2) DNR INFECTION: (test code = 48614-2) DNR REVIEW CHILLER OPERATOR: (te st code = 00355-8) DNR PATHOLOGIST: (test code = 92011-9) DNR HPV mRNA E6/E7 (test code = 12904-6) Not Detected Richard ArcosTHINPREP TIS PAP AND HPV mRNA E6/E7 WITH REFLEX TO HPV 16,18/45 2025-01-03 00:00:00* Test Item Value Reference Range Interpretation Comme nts REPORT STATUS: (test code = 8251-1) DNR GENERAL CATEGORIZATION: (blossom t code = 28265-3) DNR INFECTION: (test code = 44170-9) DNR REVIEW CHILLER OPERATOR: (te st code = 48722-6) DNR PATHOLOGIST: (test code = 35197-0) DNR HPV mRNA E6/E7 (test code = 30140-3) Not Detected Richard ArcosTHINPREP TIS PAP AND HPV mRNA E6/E7 WITH REFLEX TO HPV 16,18/45 2025-01-03 00:00:00* Test Item Value Reference Range Interpretation Comme nts REPORT STATUS: (test code = 8251-1) DNR GENERAL CATEGORIZATION: (blossom t code = 77666-5) DNR INFECTION: (test code = 50319-4) DNR REVIEW CHILLER OPERATOR: (te st code = 66681-5) DNR PATHOLOGIST: (test code = 38942-1) DNR HPV mRNA E6/E7 (test code = 76422-0) Not Detected Richard ArcosOBSTETRIC [id number] 00:00:00* Test Item Value Reference Range Interpretation [...] cells/uL ABSOLUTE BAND NEUTROPHILS (test code = 80660-0) DNR cells/uL ABSOLUTE METAMYELOCYTES (test code = 53170-2) DNR cells/uL ABSOLUTE MYELOCYTES (test code = 73546-5) DNR cells/uL ABSOLUTE PROMYELOCYTES (test code = 59925-3) DNR cells/uL ABSOLUTE LYMPHOCYTES (test code = 731-0) 1680 cells/uL ABSOLUTE MONOCYTES (test code = 742-7) 730 cells/uL ABSOLUTE EOSINOPHILS (test code = 711-2) 90 cells/uL ABSOLUTE BASOPHILS (test code = 704-7) 80 cells/uL ABSOLUTE BLASTS (test code = 51875-8) DNR cells/uL ABSOLUTE NUCLEATED RBC (test code = 90901-4) DNR cells/uL NEUTROPHILS (test code = 770-8) 74.2 % BAND NEUTROPHILS (test code = 764-1) DNR % METAMYELOCYTES (test code = 740-1) DNR % MYELOCYTES (test code = 749-2) DNR % PROMYELOCYTES (test code = 783-1) DNR % LYMPHOCYTES (test code = 736-9) 16.8 % REACTIVE LYMPHOCYTES (test code = 73525-0) DNR % MONOCYTES (test code = 5905-5) 7.3 % EOSINOPHILS (test code = 713-8) 0.9 % BASOPHILS (test code = 706-2) 0.8 % BLASTS (test code = 709-6) DNR % NUCLEATED RBC (test code = 99442-0) DNR /100WBC COMMENT(S) (test code = 8251-1) DNR ANTIBODY SCREEN, RBC W/REFL ID, TITER AND AG (test code = 890-4) NO ANTIBODIES DETECTED ABO GROUP (test code = 883-9) A RH TYPE (test code = 77368-4) RH(D) POSITIVE RPR (DX) W/REFL TITER AND CONFIRMATORY TESTING (test code = 20094-9) NON-REACTIVE HEPATITIS B SURFACE ANTIGEN (test code = 5196-1) NON-REACTIVE CONFIRMATION (test code = 7905-3) DNR RUBELLA AB (IGG), IMMUNE STATUS (test code = 5334-8) 21.20 Index Richard Carrillo AustinCULTURE, URINE, [id number] 00:00:00* Test Item Value Reference Range Interpretation Comme nts CULTURE, URINE, ROUTINE (blossom t code = 630-4) SEE NOTE Richard ArcosHIV 1/2 ANTIGEN/ANTIBODY,FOURTH GENERATION [id number] 00:00:00* Test Item Value Reference Range Interpretation Comme nts HIV AG/AB, 4TH GEN (test cod e = 95826-6) NON-REACTIVE Richard Carrillo [id number] 00:00:00* Test Item Value Reference Range Interpretation Comme nts TSH (test code = 3016-3) 1.63 mIU/L Richard ArcosHEPATITIS PANEL, [id number] 00:00:00* Test Item Value Reference Range Interpretation Comme nts HEPATITIS A AB, TOTAL (test code = 13289-3) REACTIVE HEPATITIS B SURFACE ANTIBODY QL (test code = 08098-0) NON-REACTIVE HEPATITIS B SURFACE ANTIGEN (test code = 5196-1) NON-REACTIVE CONFIRMATION (test code = 7905-3) DNR HEPATITIS B CORE AB TOTAL (t est code = 84253-1) NON-REACTIVE HEPATITIS C ANTIBODY (test c ode = 28645-7) NON-REACTIVE Richard ArcosVARICELLA ZOSTER VIRUS ANTIBODY (IGG)2025-01-01 00:00:00* Test Item Value Reference Range Interpretation Comme nts VARICELLA ZOSTER VIRUS ANTIB POOJA (IGG) (test code = 5403-1) 15.30 S/CO Richard ArcosCHLAMYDIA/N. GONORRHOEAE RNA, [id number] 00:00:00* Test Item Value Reference Range Interpretation Comme nts CHLAMYDIA TRACHOMATIS RNA, T MA, UROGENITAL (test code = 75444-8) NOT DETECTED NEISSERIA GONORRHOEAE RNA, T MA, UROGENITAL (test code = 07513-8) NOT DETECTED Richard ArcosCULTURE, URINE, [id number] 00:00:00* Test Item Value Reference Range Interpretation Comme nts CULTURE, URINE, ROUTINE (blossom t code = 630-4) SEE NOTE Richard ArcosOBSTETRIC [id number] 00:00:00* Test Item Value Reference Range Interpretation [...] cells/uL ABSOLUTE BAND NEUTROPHILS (test code = 43048-7) DNR cells/uL ABSOLUTE METAMYELOCYTES (test code = 66490-4) DNR cells/uL ABSOLUTE MYELOCYTES (test code = 59365-1) DNR cells/uL ABSOLUTE PROMYELOCYTES (test code = 94767-7) DNR cells/uL ABSOLUTE LYMPHOCYTES (test code = 731-0) 1680 cells/uL ABSOLUTE MONOCYTES (test code = 742-7) 730 cells/uL ABSOLUTE EOSINOPHILS (test code = 711-2) 90 cells/uL ABSOLUTE BASOPHILS (test code = 704-7) 80 cells/uL ABSOLUTE BLASTS (test code = 86777-2) DNR cells/uL ABSOLUTE NUCLEATED RBC (test code = 59594-3) DNR cells/uL NEUTROPHILS (test code = 770-8) 74.2 % BAND NEUTROPHILS (test code = 764-1) DNR % METAMYELOCYTES (test code = 740-1) DNR % MYELOCYTES (test code = 749-2) DNR % PROMYELOCYTES (test code = 783-1) DNR % LYMPHOCYTES (test code = 736-9) 16.8 % REACTIVE LYMPHOCYTES (test code = 49836-0) DNR % MONOCYTES (test code = 5905-5) 7.3 % EOSINOPHILS (test code = 713-8) 0.9 % BASOPHILS (test code = 706-2) 0.8 % BLASTS (test code = 709-6) DNR % NUCLEATED RBC (test code = 22105-6) DNR /100WBC COMMENT(S) (test code = 8251-1) DNR ANTIBODY SCREEN, RBC W/REFL ID, TITER AND AG (test code = 890-4) NO ANTIBODIES DETECTED ABO GROUP (test code = 883-9) A RH TYPE (test code = 90155-7) RH(D) POSITIVE RPR (DX) W/REFL TITER AND CONFIRMATORY TESTING (test code = 41310-6) NON-REACTIVE HEPATITIS B SURFACE ANTIGEN (test code = 5196-1) NON-REACTIVE CONFIRMATION (test code = 7905-3) DNR RUBELLA AB (IGG), IMMUNE STATUS (test code = 5334-8) 21.20 Index Richard ArcosHIV 1/2 ANTIGEN/ANTIBODY,FOURTH GENERATION [id number] 00:00:00* Test Item Value Reference Range Interpretation Comme nts HIV AG/AB, 4TH GEN (test cod e = 69840-1) NON-REACTIVE Richard Carrillo [id number] 00:00:00* Test Item Value Reference Range Interpretation Comme nts TSH (test code = 3016-3) 1.63 mIU/L Richard ArcosHEPATITIS PANEL, [id number] 00:00:00* Test Item Value Reference Range Interpretation Comme nts HEPATITIS A AB, TOTAL (test code = 90790-5) REACTIVE HEPATITIS B SURFACE ANTIBODY QL (test code = 24373-5) NON-REACTIVE HEPATITIS B SURFACE ANTIGEN (test code = 5196-1) NON-REACTIVE CONFIRMATION (test code = 7905-3) DNR HEPATITIS B CORE AB TOTAL (t est code = 61578-7) NON-REACTIVE HEPATITIS C ANTIBODY (test c ode = 06969-3) NON-REACTIVE Richard Carrillo AustinVARICELLA ZOSTER VIRUS ANTIBODY (IGG)2025-01-01 00:00:00* Test Item Value Reference Range Interpretation Comme nts VARICELLA ZOSTER VIRUS ANTIB POOJA (IGG) (test code = 5403-1) 15.30 S/CO Richard ArcosCHLAMYDIA/N. GONORRHOEAE RNA, [id number] 00:00:00* Test Item Value Reference Range Interpretation Comme nts CHLAMYDIA TRACHOMATIS RNA, T MA, UROGENITAL (test code = 06326-7) NOT DETECTED NEISSERIA GONORRHOEAE RNA, T MA, UROGENITAL (test code = 29498-0) NOT DETECTED Richard Carrillo AustinCULTURE, URINE, [id number] 00:00:00* Test Item Value Reference Range Interpretation Comme nts CULTURE, URINE, ROUTINE (blossom t code = 630-4) SEE NOTE Richard Carrillo AustinOBSTETRIC [id number] 00:00:00* Test Item Value Reference Range Interpretation [...] cells/uL ABSOLUTE BAND NEUTROPHILS (test code = 64762-7) DNR cells/uL ABSOLUTE METAMYELOCYTES (test code = 00401-2) DNR cells/uL ABSOLUTE MYELOCYTES (test code = 53136-0) DNR cells/uL ABSOLUTE PROMYELOCYTES (test code = 31651-3) DNR cells/uL ABSOLUTE LYMPHOCYTES (test code = 731-0) 1680 cells/uL ABSOLUTE MONOCYTES (test code = 742-7) 730 cells/uL ABSOLUTE EOSINOPHILS (test code = 711-2) 90 cells/uL ABSOLUTE BASOPHILS (test code = 704-7) 80 cells/uL ABSOLUTE BLASTS (test code = 76943-8) DNR cells/uL ABSOLUTE NUCLEATED RBC (test code = 21888-1) DNR cells/uL NEUTROPHILS (test code = 770-8) 74.2 % BAND NEUTROPHILS (test code = 764-1) DNR % METAMYELOCYTES (test code = 740-1) DNR % MYELOCYTES (test code = 749-2) DNR % PROMYELOCYTES (test code = 783-1) DNR % LYMPHOCYTES (test code = 736-9) 16.8 % REACTIVE LYMPHOCYTES (test code = 10769-4) DNR % MONOCYTES (test code = 5905-5) 7.3 % EOSINOPHILS (test code = 713-8) 0.9 % BASOPHILS (test code = 706-2) 0.8 % BLASTS (test code = 709-6) DNR % NUCLEATED RBC (test code = 41836-6) DNR /100WBC COMMENT(S) (test code = 8251-1) DNR ANTIBODY SCREEN, RBC W/REFL ID, TITER AND AG (test code = 890-4) NO ANTIBODIES DETECTED ABO GROUP (test code = 883-9) A RH TYPE (test code = 99905-4) RH(D) POSITIVE RPR (DX) W/REFL TITER AND CONFIRMATORY TESTING (test code = 67404-3) NON-REACTIVE HEPATITIS B SURFACE ANTIGEN (test code = 5196-1) NON-REACTIVE CONFIRMATION (test code = 7905-3) DNR RUBELLA AB (IGG), IMMUNE STATUS (test code = 5334-8) 21.20 Index Richard ArcosHIV 1/2 ANTIGEN/ANTIBODY,FOURTH GENERATION [id number] 00:00:00* Test Item Value Reference Range Interpretation Comme nts HIV AG/AB, 4TH GEN (test cod e = 23211-3) NON-REACTIVE Richard [id number] 00:00:00* Test Item Value Reference Range Interpretation Comme nts TSH (test code = 3016-3) 1.63 mIU/L Richard ArcosHEPATITIS PANEL, [id number] 00:00:00* Test Item Value Reference Range Interpretation Comme nts HEPATITIS A AB, TOTAL (test code = 52531-4) REACTIVE HEPATITIS B SURFACE ANTIBODY QL (test code = 80780-4) NON-REACTIVE HEPATITIS B SURFACE ANTIGEN (test code = 5196-1) NON-REACTIVE CONFIRMATION (test code = 7905-3) DNR HEPATITIS B CORE AB TOTAL (t est code = 80930-6) NON-REACTIVE HEPATITIS C ANTIBODY (test c ode = 58385-3) NON-REACTIVE Richard ArcosVARICELLA ZOSTER VIRUS ANTIBODY (IGG)2025-01-01 00:00:00* Test Item Value Reference Range Interpretation Comme nts VARICELLA ZOSTER VIRUS ANTIB POOJA (IGG) (test code = 5403-1) 15.30 S/CO Richard ArcosCHLAMYDIA/N. GONORRHOEAE RNA, [id number] 00:00:00* Test Item Value Reference Range Interpretation Comme nts CHLAMYDIA TRACHOMATIS RNA, T MA, UROGENITAL (test code = 90639-3) NOT DETECTED NEISSERIA GONORRHOEAE RNA, T MA, UROGENITAL (test code = 02360-6) NOT DETECTED Richard ArcosOBSTETRIC [id number] 00:00:00* Test Item Value Reference Range Interpretation [...] cells/uL ABSOLUTE BAND NEUTROPHILS (test code = 81507-0) DNR cells/uL ABSOLUTE METAMYELOCYTES (test code = 82394-2) DNR cells/uL ABSOLUTE MYELOCYTES (test code = 24307-0) DNR cells/uL ABSOLUTE PROMYELOCYTES (test code = 09176-6) DNR cells/uL ABSOLUTE LYMPHOCYTES (test code = 731-0) 1680 cells/uL ABSOLUTE MONOCYTES (test code = 742-7) 730 cells/uL ABSOLUTE EOSINOPHILS (test code = 711-2) 90 cells/uL ABSOLUTE BASOPHILS (test code = 704-7) 80 cells/uL ABSOLUTE BLASTS (test code = 22894-6) DNR cells/uL ABSOLUTE NUCLEATED RBC (test code = 89090-4) DNR cells/uL NEUTROPHILS (test code = 770-8) 74.2 % BAND NEUTROPHILS (test code = 764-1) DNR % METAMYELOCYTES (test code = 740-1) DNR % MYELOCYTES (test code = 749-2) DNR % PROMYELOCYTES (test code = 783-1) DNR % LYMPHOCYTES (test code = 736-9) 16.8 % REACTIVE LYMPHOCYTES (test code = 13535-4) DNR % MONOCYTES (test code = 5905-5) 7.3 % EOSINOPHILS (test code = 713-8) 0.9 % BASOPHILS (test code = 706-2) 0.8 % BLASTS (test code = 709-6) DNR % NUCLEATED RBC (test code = 53270-5) DNR /100WBC COMMENT(S) (test code = 8251-1) DNR ANTIBODY SCREEN, RBC W/REFL ID, TITER AND AG (test code = 890-4) NO ANTIBODIES DETECTED ABO GROUP (test code = 883-9) A RH TYPE (test code = 79242-2) RH(D) POSITIVE RPR (DX) W/REFL TITER AND CONFIRMATORY TESTING (test code = 94353-2) NON-REACTIVE HEPATITIS B SURFACE ANTIGEN (test code = 5196-1) NON-REACTIVE CONFIRMATION (test code = 7905-3) DNR RUBELLA AB (IGG), IMMUNE STATUS (test code = 5334-8) 21.20 Index Richard ArcosCULTURE, URINE, [id number] 00:00:00* Test Item Value Reference Range Interpretation Comme nts CULTURE, URINE, ROUTINE (blossom t code = 630-4) SEE NOTE Richard ArcosHIV 1/2 ANTIGEN/ANTIBODY,FOURTH GENERATION [id number] 00:00:00* Test Item Value Reference Range Interpretation Comme nts HIV AG/AB, 4TH GEN (test cod e = 13883-7) NON-REACTIVE Richard [id number] 00:00:00* Test Item Value Reference Range Interpretation Comme nts TSH (test code = 3016-3) 1.63 mIU/L Richard ArcosHEPATITIS PANEL, [id number] 00:00:00* Test Item Value Reference Range Interpretation Comme nts HEPATITIS A AB, TOTAL (test code = 86130-2) REACTIVE HEPATITIS B SURFACE ANTIBODY QL (test code = 93240-6) NON-REACTIVE HEPATITIS B SURFACE ANTIGEN (test code = 5196-1) NON-REACTIVE CONFIRMATION (test code = 7905-3) DNR HEPATITIS B CORE AB TOTAL (t est code = 33236-8) NON-REACTIVE HEPATITIS C ANTIBODY (test c ode = 26728-9) NON-REACTIVE Richard Carrillo AustinVARICELLA ZOSTER VIRUS ANTIBODY (IGG)2025-01-01 00:00:00* Test Item Value Reference Range Interpretation Comme nts VARICELLA ZOSTER VIRUS ANTIB POOJA (IGG) (test code = 5403-1) 15.30 S/CO Richard Carrillo AustinCHLAMYDIA/N. GONORRHOEAE RNA, [id number] 00:00:00* Test Item Value Reference Range Interpretation Comme nts CHLAMYDIA TRACHOMATIS RNA, T MA, UROGENITAL (test code = 99584-5) NOT DETECTED NEISSERIA GONORRHOEAE RNA, T MA, UROGENITAL (test code = 75832-0) NOT DETECTED Richard Carrillo AustinCULTURE, URINE, [id number] 00:00:00* Test Item Value Reference Range Interpretation Comme nts CULTURE, URINE, ROUTINE (blossom t code = 630-4) SEE NOTE Richard Carrillo AustinOBSTETRIC [id number] 00:00:00* Test Item Value Reference Range Interpretation [...] cells/uL ABSOLUTE BAND NEUTROPHILS (test code = 44074-6) DNR cells/uL ABSOLUTE METAMYELOCYTES (test code = 70374-0) DNR cells/uL ABSOLUTE MYELOCYTES (test code = 38999-5) DNR cells/uL ABSOLUTE PROMYELOCYTES (test code = 22998-2) DNR cells/uL ABSOLUTE LYMPHOCYTES (test code = 731-0) 1680 cells/uL ABSOLUTE MONOCYTES (test code = 742-7) 730 cells/uL ABSOLUTE EOSINOPHILS (test code = 711-2) 90 cells/uL ABSOLUTE BASOPHILS (test code = 704-7) 80 cells/uL ABSOLUTE BLASTS (test code = 13577-9) DNR cells/uL ABSOLUTE NUCLEATED RBC (test code = 00396-7) DNR cells/uL NEUTROPHILS (test code = 770-8) 74.2 % BAND NEUTROPHILS (test code = 764-1) DNR % METAMYELOCYTES (test code = 740-1) DNR % MYELOCYTES (test code = 749-2) DNR % PROMYELOCYTES (test code = 783-1) DNR % LYMPHOCYTES (test code = 736-9) 16.8 % REACTIVE LYMPHOCYTES (test code = 91291-3) DNR % MONOCYTES (test code = 5905-5) 7.3 % EOSINOPHILS (test code = 713-8) 0.9 % BASOPHILS (test code = 706-2) 0.8 % BLASTS (test code = 709-6) DNR % NUCLEATED RBC (test code = 68708-4) DNR /100WBC COMMENT(S) (test code = 8251-1) DNR ANTIBODY SCREEN, RBC W/REFL ID, TITER AND AG (test code = 890-4) NO ANTIBODIES DETECTED ABO GROUP (test code = 883-9) A RH TYPE (test code = 32654-5) RH(D) POSITIVE RPR (DX) W/REFL TITER AND CONFIRMATORY TESTING (test code = 72128-5) NON-REACTIVE HEPATITIS B SURFACE ANTIGEN (test code = 5196-1) NON-REACTIVE CONFIRMATION (test code = 7905-3) DNR RUBELLA AB (IGG), IMMUNE STATUS (test code = 5334-8) 21.20 Index Richard ArcosHIV 1/2 ANTIGEN/ANTIBODY,FOURTH GENERATION [id number] 00:00:00* Test Item Value Reference Range Interpretation Comme nts HIV AG/AB, 4TH GEN (test cod e = 95537-1) NON-REACTIVE Richard Carrillo [id number] 00:00:00* Test Item Value Reference Range Interpretation Comme nts TSH (test code = 3016-3) 1.63 mIU/L Richard ArcosHEPATITIS PANEL, [id number] 00:00:00* Test Item Value Reference Range Interpretation Comme nts HEPATITIS A AB, TOTAL (test code = 67864-3) REACTIVE HEPATITIS B SURFACE ANTIBODY QL (test code = 61198-1) NON-REACTIVE HEPATITIS B SURFACE ANTIGEN (test code = 5196-1) NON-REACTIVE CONFIRMATION (test code = 7905-3) DNR HEPATITIS B CORE AB TOTAL (t est code = 11216-3) NON-REACTIVE HEPATITIS C ANTIBODY (test c ode = 41646-2) NON-REACTIVE Richard ArcosVARICELLA ZOSTER VIRUS ANTIBODY (IGG)2025-01-01 00:00:00* Test Item Value Reference Range Interpretation Comme nts VARICELLA ZOSTER VIRUS ANTIB POOJA (IGG) (test code = 5403-1) 15.30 S/CO Richard Carrillo AustinCHLAMYDIA/N. GONORRHOEAE RNA, [id number] 00:00:00* Test Item Value Reference Range Interpretation Comme nts CHLAMYDIA TRACHOMATIS RNA, T MA, UROGENITAL (test code = 29273-7) NOT DETECTED NEISSERIA GONORRHOEAE RNA, T MA, UROGENITAL (test code = 56068-9) NOT DETECTED Richard Carrillo AustinGLUCOSE, POSTPRANDIAL/ 1 [id number] 00:00:00* Test Item Value Reference Range Interpretation Comme nts GLUCOSE, POSTPRANDIAL/ 1 KAITLIN R (test code = 77234-6) 87 mg/dL Richard Carrillo AustinBV/VAGINITIS PANEL DNA [id number] 00:00:00* Test Item Value Reference Range Interpretation Comme nts TRICHOMONAS: (test code = 6568-0) NOT DETECTED GARDNERELLA: (test code = 6410-5) DETECTED ROCIO: (test code = 98545-0) NOT DETECTED Richard Carrillo AustinGLUCOSE, POSTPRANDIAL/ 1 [id number] 00:00:00* Test Item Value Reference Range Interpretation Comme nts GLUCOSE, POSTPRANDIAL/ 1 KAITLIN R (test code = 74842-8) 87 mg/dL Richard Carrillo AustinBV/VAGINITIS PANEL DNA [id number] 00:00:00* Test Item Value Reference Range Interpretation Comme nts TRICHOMONAS: (test code = 6568-0) NOT DETECTED GARDNERELLA: (test code = 6410-5) DETECTED ROCIO: (test code = 45729-3) NOT DETECTED Richard Carrillo AustinGLUCOSE, POSTPRANDIAL/ 1 [id number] 00:00:00* Test Item Value Reference Range Interpretation Comme nts GLUCOSE, POSTPRANDIAL/ 1 KAITLIN R (test code = 73258-6) 87 mg/dL Richard F AustinBV/VAGINITIS PANEL DNA [id number] 00:00:00* Test Item Value Reference Range Interpretation Comme nts TRICHOMONAS: (test code = 6568-0) NOT DETECTED GARDNERELLA: (test code = 6410-5) DETECTED ROCIO: (test code = 73937-8) NOT DETECTED Richard F AustinBV/VAGINITIS PANEL DNA [id number] 00:00:00* Test Item Value Reference Range Interpretation Comme nts TRICHOMONAS: (test code = 6568-0) NOT DETECTED GARDNERELLA: (test code = 6410-5) DETECTED ROCIO: (test code = 88686-2) NOT DETECTED Richard F AustinGLUCOSE, POSTPRANDIAL/ 1 [id number] 00:00:00* Test Item Value Reference Range Interpretation Comme nts GLUCOSE, POSTPRANDIAL/ 1 KAITLIN R (test code = 35293-7) 87 mg/dL Richard F AustinGLUCOSE, POSTPRANDIAL/ 1 [id number] 00:00:00* Test Item Value Reference Range Interpretation Comme nts GLUCOSE, POSTPRANDIAL/ 1 KAITLIN R (test code = 01795-2) 87 mg/dL Richard F AustinBV/VAGINITIS PANEL DNA [id number] 00:00:00* Test Item Value Reference Range Interpretation Comme nts TRICHOMONAS: (test code = 6568-0) NOT DETECTED GARDNERELLA: (test code = 6410-5) DETECTED ROCIO: (test code = 30840-5) NOT DETECTED Richard F AustinC-REACTIVE PROTEIN [ADDED]2024-08-25 00:00:00* Test Item Value Reference Range Interpretation Comme nts C-REACTIVE PROTEIN (test cod e = 1988-5) <3.0 mg/L Richard F AustinHELICOBACTER PYLORI, UREA BREATH [id number] 00:00:00* Test Item Value Reference Range Interpretation Comme nts HELICOBACTER PYLORI, UREA BR EATH TEST (test code = 65862-2) NOT DETECTED Richard F AustinAMYLASE AND LIPASE [...] mg/L Richard F AustinHELICOBACTER PYLORI, UREA BREATH [id number] 00:00:00* Test Item Value Reference Range Interpretation Comme nts HELICOBACTER PYLORI, UREA BR EATH TEST (test code = 79121-1) NOT DETECTED Richard F AustinAMYLASE AND LIPASE [ADDED]2024-08-25 00:00:00* Test Item Value Reference Range Interpretation Comme nts AMYLASE (test code = 1798-8) 26 U/L LIPASE (test code = 3040-3) 25 U/L Richard F AustinSED RATE BY MODIFIED WESTERGREN [ADDED]2024-08-25 00:00:00* Test Item Value Reference Range Interpretation Comme nts SED RATE BY MODIFIED JORGE SWETHA (test code = 4537-7) 2 mm/h Richard F AustinC-REACTIVE PROTEIN [ADDED]2024-08-25 00:00:00* Test Item Value Reference Range Interpretation Comme nts C-REACTIVE PROTEIN (test cod e = 1987-5) <3.0 mg/L Richard F AustinHELICOBACTER PYLORI, UREA BREATH [id number] 00:00:00* Test Item Value Reference Range Interpretation Comme nts HELICOBACTER PYLORI, UREA BR EATH TEST (test code = 98642-7) NOT DETECTED Richard F AustinAMYLASE AND LIPASE [...] mg/L Richard F AustinHELICOBACTER PYLORI, UREA BREATH [id number] 00:00:00* Test Item Value Reference Range Interpretation Comme nts HELICOBACTER PYLORI, UREA BR EATH TEST (test code = 05222-6) NOT DETECTED Richard F AustinAMYLASE AND LIPASE [...] mg/L Richard F AustinHELICOBACTER PYLORI, UREA BREATH [id number] 00:00:00* Test Item Value Reference Range Interpretation Comme nts HELICOBACTER PYLORI, UREA BR EATH TEST (test code = 71770-8) NOT DETECTED Richard F AustinAMYLASE AND LIPASE [...] mg/L Richard F AustinHELICOBACTER PYLORI, UREA BREATH [id number] 00:00:00* Test Item Value Reference Range Interpretation Comme nts HELICOBACTER PYLORI, UREA BR EATH TEST (test code = 95740-4) NOT DETECTED Richard F AustinAMYLASE AND LIPASE [...] mg/L Richard F AustinHELICOBACTER PYLORI, UREA BREATH [id number] 00:00:00* Test Item Value Reference Range Interpretation Comme nts HELICOBACTER PYLORI, UREA BR EATH TEST (test code = 23876-5) NOT DETECTED Richard F AustinAMYLASE AND LIPASE [...] mg/L Richard F AustinHELICOBACTER PYLORI, UREA BREATH [id number] 00:00:00* Test Item Value Reference Range Interpretation Comme nts HELICOBACTER PYLORI, UREA BR EATH TEST (test code = 44980-1) NOT DETECTED Richard F AustinAMYLASE AND LIPASE [...] mg/L Richard F AustinHELICOBACTER PYLORI, UREA BREATH [id number] 00:00:00* Test Item Value Reference Range Interpretation Comme nts HELICOBACTER PYLORI, UREA BR EATH TEST (test code = 32055-8) NOT DETECTED Richard F AustinAMYLASE AND LIPASE [...] mg/L Richard F AustinHELICOBACTER PYLORI, UREA BREATH [id number] 00:00:00* Test Item Value Reference Range Interpretation Comme nts HELICOBACTER PYLORI, UREA BR EATH TEST (test code = 62853-9) NOT DETECTED Richard F AustinAMYLASE AND LIPASE [ADDED]2024-08-25 00:00:00* Test Item Value Reference Range Interpretation Comme nts AMYLASE (test code = 1798-8) 26 U/L LIPASE (test code = 3040-3) 25 U/L Richard F AustinSED RATE BY MODIFIED WESTERGREN [ADDED]2024-08-25 00:00:00* Test Item Value Reference Range Interpretation Comme nts SED RATE BY MODIFIED JORGE POSADA (test code = 4537-7) 2 mm/h Richard Carrillo AustinC-REACTIVE PROTEIN [ADDED]2024-08-25 00:00:00* Test Item Value Reference Range Interpretation Comme nts C-REACTIVE PROTEIN (test cod e = 1987-5) <3.0 mg/L Richard ArcosHELICOBACTER PYLORI, UREA BREATH [id number] 00:00:00* Test Item Value Reference Range Interpretation Comme nts HELICOBACTER PYLORI, UREA BR EATH TEST (test code = 15665-5) NOT DETECTED Richard ArcosAMYLASE AND LIPASE [ADDED]2024-08-25 00:00:00* Test Item Value Reference Range Interpretation Comme nts AMYLASE (test code = 1798-8) 26 U/L LIPASE (test code = 3040-3) 25 U/L Richard Carrillo AustinSED RATE BY MODIFIED ALFONSO [ADDED]2024-08-25 00:00:00* Test Item Value Reference Range Interpretation Comme nts SED RATE BY MODIFIED JORGE POSADA (test code = 4537-7) 2 mm/h Richard ArcosHEMOGLOBIN [id number] 00:00:00* Test Item Value Reference Range Interpretation Comme nts HEMOGLOBIN A1c (test code = 4548-4) 5.0 %oftotalHgb Richard ArcosLIPID [id number] 00:00:00* Test Item Value Reference Range Interpretation Comme nts CHOLESTEROL, TOTAL (test cod e = 2092-3) 183 mg/dL HDL CHOLESTEROL (test code = 2085-9) 41 mg/dL TRIGLYCERIDES (test code = 2571-8) 69 mg/dL LDL-CHOLESTEROL (test code = 83966-0) 126 mg/dL(calc) CHOL/HDLC RATIO (test code = 9830-1) 4.5 (calc) NON HDL CHOLESTEROL (test code = 68045-9) 142 mg/dL(calc) Richard Carrillo [id number] 00:00:00* Test Item Value Reference Range Interpretation Comme nts TSH (test code = 3016-3) 1.17 mIU/L Richard F AustinCBC (INCLUDES DIFF/PLT)2024-07-11 00:00:00* Test Item Value Reference [...] cells/uL ABSOLUTE BAND NEUTROPHILS (test code = 85901-1) DNR cells/uL ABSOLUTE METAMYELOCYTES (blossom t code = 80013-4) DNR cells/uL ABSOLUTE MYELOCYTES (test code = 06290-3) DNR cells/uL ABSOLUTE PROMYELOCYTES (test code = 38306-6) DNR cells/uL ABSOLUTE LYMPHOCYTES (test code = 731-0) 2066 cells/uL ABSOLUTE MONOCYTES (test cod e = 742-7) 580 cells/uL ABSOLUTE EOSINOPHILS (test code = 711-2) 176 cells/uL ABSOLUTE BASOPHILS (test cod e = 704-7) 84 cells/uL ABSOLUTE BLASTS (test code = 83452-7) DNR cells/uL ABSOLUTE NUCLEATED RBC (test code = 35418-0) DNR cells/uL NEUTROPHILS (test code = 770-8) 65.4 % BAND NEUTROPHILS (test code = 764-1) DNR % METAMYELOCYTES (test code = 740-1) DNR % MYELOCYTES (test code = 749-2) DNR % PROMYELOCYTES (test code = 783-1) DNR % LYMPHOCYTES (test code = 736-9) 24.6 % REACTIVE LYMPHOCYTES (test code = 68763-5) DNR % MONOCYTES (test code = 5905-5) 6.9 % EOSINOPHILS (test code = 713-8) 2.1 % BASOPHILS (test code = 706-2) 1.0 % BLASTS (test code = 709-6) DNR % NUCLEATED RBC (test code = 29882-9) DNR /100WBC COMMENT(S) (test code = 8251-1) DNR Richard ArcosCOMPREHENSIVE METABOLIC [id number] 00:00:00* Test Item Value Reference Range Interpretation Comme nts GLUCOSE (test code = 2345-7) 91 mg/dL UREA NITROGEN (BUN) (test code = 3094-0) 14 mg/dL CREATININE (test code = 2160-0) 0.80 mg/dL EGFR (test code = 37181-6) 102 mL/min/1.73m2 BUN/CREATININE RATIO (test code = 3097-3) SEE NOTE: (calc) SODIUM (test code = 2951-2) 139 mmol/L POTASSIUM (test code = 2823-3) 4.4 mmol/L CHLORIDE (test code = 2075-0) 107 mmol/L CARBON DIOXIDE (test code = 2027-9) 24 mmol/L CALCIUM (test code = 18761-8) 10.0 mg/dL PROTEIN, TOTAL (test code = 2885-2) 7.0 g/dL ALBUMIN (test code = 1751-7) 4.6 g/dL GLOBULIN (test code = 12471-7) 2.4 g/dL(calc) ALBUMIN/GLOBULIN RATIO (test code = 1759-0) 1.9 (calc) BILIRUBIN, TOTAL (test code = 1975-2) 0.6 mg/dL ALKALINE PHOSPHATASE (test code = 6768-6) 56 U/L AST (test code = 1920-8) 13 U/L ALT (test code = 1742-6) 13 U/L Richard ArcosHEMOGLOBIN [id number] 00:00:00* Test Item Value Reference Range Interpretation Comme nts HEMOGLOBIN A1c (test code = 4548-4) 5.0 %oftotalHgb Richard ArcosLIPID [id number] 00:00:00* Test Item Value Reference Range Interpretation Comme nts CHOLESTEROL, TOTAL (test cod e = 2093-3) 183 mg/dL HDL CHOLESTEROL (test code = 2085-9) 41 mg/dL TRIGLYCERIDES (test code = 2571-8) 69 mg/dL LDL-CHOLESTEROL (test code = 97644-8) 126 mg/dL(calc) CHOL/HDLC RATIO (test code = 9830-1) 4.5 (calc) NON HDL CHOLESTEROL (test code = 42271-4) 142 mg/dL(calc) Richard [id number] 00:00:00* Test Item Value Reference Range Interpretation [...] cells/uL ABSOLUTE BAND NEUTROPHILS (test code = 09863-9) DNR cells/uL ABSOLUTE METAMYELOCYTES (blossom t code = 86519-0) DNR cells/uL ABSOLUTE MYELOCYTES (test code = 86772-7) DNR cells/uL ABSOLUTE PROMYELOCYTES (test code = 25382-4) DNR cells/uL ABSOLUTE LYMPHOCYTES (test code = 731-0) 2066 cells/uL ABSOLUTE MONOCYTES (test cod e = 742-7) 580 cells/uL ABSOLUTE EOSINOPHILS (test code = 711-2) 176 cells/uL ABSOLUTE BASOPHILS (test cod e = 704-7) 84 cells/uL ABSOLUTE BLASTS (test code = 54141-3) DNR cells/uL ABSOLUTE NUCLEATED RBC (test code = 79706-0) DNR cells/uL NEUTROPHILS (test code = 770-8) 65.4 % BAND NEUTROPHILS (test code = 764-1) DNR % METAMYELOCYTES (test code = 740-1) DNR % MYELOCYTES (test code = 749-2) DNR % PROMYELOCYTES (test code = 783-1) DNR % LYMPHOCYTES (test code = 736-9) 24.6 % REACTIVE LYMPHOCYTES (test code = 53937-5) DNR % MONOCYTES (test code = 5905-5) 6.9 % EOSINOPHILS (test code = 713-8) 2.1 % BASOPHILS (test code = 706-2) 1.0 % BLASTS (test code = 709-6) DNR % NUCLEATED RBC (test code = 79537-5) DNR /100WBC COMMENT(S) (test code = 8251-1) DNR Richard ArcosCOMPREHENSIVE METABOLIC [id number] 00:00:00* Test Item Value Reference Range Interpretation Comme nts GLUCOSE (test code = 2345-7) 91 mg/dL UREA NITROGEN (BUN) (test code = 3094-0) 14 mg/dL CREATININE (test code = 2160-0) 0.80 mg/dL EGFR (test code = 35199-8) 102 mL/min/1.73m2 BUN/CREATININE RATIO (test code = 3097-3) SEE NOTE: (calc) SODIUM (test code = 2951-2) 139 mmol/L POTASSIUM (test code = 2823-3) 4.4 mmol/L CHLORIDE (test code = 2075-0) 107 mmol/L CARBON DIOXIDE (test code = 8-9) 24 mmol/L CALCIUM (test code = 71841-6) 10.0 mg/dL PROTEIN, TOTAL (test code = 2885-2) 7.0 g/dL ALBUMIN (test code = 1751-7) 4.6 g/dL GLOBULIN (test code = 25019-1) 2.4 g/dL(calc) ALBUMIN/GLOBULIN RATIO (test code = 1759-0) 1.9 (calc) BILIRUBIN, TOTAL (test code = 1975-2) 0.6 mg/dL ALKALINE PHOSPHATASE (test code = 6768-6) 56 U/L AST (test code = 1920-8) 13 U/L ALT (test code = 1742-6) 13 U/L Richard ArcosHEMOGLOBIN [id number] 00:00:00* Test Item Value Reference Range Interpretation Comme annalisa HEMOGLOBIN A1c (test code = 4548-4) 5.0 %oftotalHgb Richard ArcosLIPID [id number] 00:00:00* Test Item Value Reference Range Interpretation Comme annalisa CHOLESTEROL, TOTAL (test cod e = 2093-3) 183 mg/dL HDL CHOLESTEROL (test code = 2085-9) 41 mg/dL TRIGLYCERIDES (test code = 2571-8) 69 mg/dL LDL-CHOLESTEROL (test code = 45495-5) 126 mg/dL(calc) CHOL/HDLC RATIO (test code = 9830-1) 4.5 (calc) NON HDL CHOLESTEROL (test code = 59229-4) 142 mg/dL(calc) Richard [id number] 00:00:00* Test Item Value Reference Range Interpretation [...] cells/uL ABSOLUTE BAND NEUTROPHILS (test code = 56915-1) DNR cells/uL ABSOLUTE METAMYELOCYTES (blossom t code = 77539-3) DNR cells/uL ABSOLUTE MYELOCYTES (test code = 97123-2) DNR cells/uL ABSOLUTE PROMYELOCYTES (test code = 23955-3) DNR cells/uL ABSOLUTE LYMPHOCYTES (test code = 731-0) 2066 cells/uL ABSOLUTE MONOCYTES (test cod e = 742-7) 580 cells/uL ABSOLUTE EOSINOPHILS (test code = 711-2) 176 cells/uL ABSOLUTE BASOPHILS (test cod e = 704-7) 84 cells/uL ABSOLUTE BLASTS (test code = 42726-3) DNR cells/uL ABSOLUTE NUCLEATED RBC (test code = 35616-4) DNR cells/uL NEUTROPHILS (test code = 770-8) 65.4 % BAND NEUTROPHILS (test code = 764-1) DNR % METAMYELOCYTES (test code = 740-1) DNR % MYELOCYTES (test code = 749-2) DNR % PROMYELOCYTES (test code = 783-1) DNR % LYMPHOCYTES (test code = 736-9) 24.6 % REACTIVE LYMPHOCYTES (test code = 80885-7) DNR % MONOCYTES (test code = 5905-5) 6.9 % EOSINOPHILS (test code = 713-8) 2.1 % BASOPHILS (test code = 706-2) 1.0 % BLASTS (test code = 709-6) DNR % NUCLEATED RBC (test code = 13949-2) DNR /100WBC COMMENT(S) (test code = 8251-1) DNR Richard F AustinCOMPREHENSIVE METABOLIC [id number] 00:00:00* Test Item Value Reference Range Interpretation Comme nts GLUCOSE (test code = 2345-7) 91 mg/dL UREA NITROGEN (BUN) (test code = 3094-0) 14 mg/dL CREATININE (test code = 2160-0) 0.80 mg/dL EGFR (test code = 22461-2) 102 mL/min/1.73m2 BUN/CREATININE RATIO (test code = 3097-3) SEE NOTE: (calc) SODIUM (test code = 2951-2) 139 mmol/L POTASSIUM (test code = 2823-3) 4.4 mmol/L CHLORIDE (test code = 2075-0) 107 mmol/L CARBON DIOXIDE (test code = 8-9) 24 mmol/L CALCIUM (test code = 79285-0) 10.0 mg/dL PROTEIN, TOTAL (test code = 2885-2) 7.0 g/dL ALBUMIN (test code = 1751-7) 4.6 g/dL GLOBULIN (test code = 10160-8) 2.4 g/dL(calc) ALBUMIN/GLOBULIN RATIO (test code = 1759-0) 1.9 (calc) BILIRUBIN, TOTAL (test code = 1975-2) 0.6 mg/dL ALKALINE PHOSPHATASE (test code = 6768-6) 56 U/L AST (test code = 1920-8) 13 U/L ALT (test code = 1742-6) 13 U/L Richard ArcosHEMOGLOBIN [id number] 00:00:00* Test Item Value Reference Range Interpretation Comme annalisa HEMOGLOBIN A1c (test code = 4548-4) 5.0 %oftotalHgb Richard ArcosLIPID [id number] 00:00:00* Test Item Value Reference Range Interpretation Comme annalisa CHOLESTEROL, TOTAL (test cod e = 3-3) 183 mg/dL HDL CHOLESTEROL (test code = 2085-9) 41 mg/dL TRIGLYCERIDES (test code = 2571-8) 69 mg/dL LDL-CHOLESTEROL (test code = 41264-5) 126 mg/dL(calc) CHOL/HDLC RATIO (test code = 9830-1) 4.5 (calc) NON HDL CHOLESTEROL (test code = 27118-7) 142 mg/dL(calc) Richard [id number] 00:00:00* Test Item Value Reference Range Interpretation [...] cells/uL ABSOLUTE BAND NEUTROPHILS (test code = 84046-7) DNR cells/uL ABSOLUTE METAMYELOCYTES (blossom t code = 30550-1) DNR cells/uL ABSOLUTE MYELOCYTES (test code = 08799-2) DNR cells/uL ABSOLUTE PROMYELOCYTES (test code = 14392-0) DNR cells/uL ABSOLUTE LYMPHOCYTES (test code = 731-0) 2066 cells/uL ABSOLUTE MONOCYTES (test cod e = 742-7) 580 cells/uL ABSOLUTE EOSINOPHILS (test code = 711-2) 176 cells/uL ABSOLUTE BASOPHILS (test cod e = 704-7) 84 cells/uL ABSOLUTE BLASTS (test code = 29167-0) DNR cells/uL ABSOLUTE NUCLEATED RBC (test code = 08701-1) DNR cells/uL NEUTROPHILS (test code = 770-8) 65.4 % BAND NEUTROPHILS (test code = 764-1) DNR % METAMYELOCYTES (test code = 740-1) DNR % MYELOCYTES (test code = 749-2) DNR % PROMYELOCYTES (test code = 783-1) DNR % LYMPHOCYTES (test code = 736-9) 24.6 % REACTIVE LYMPHOCYTES (test code = 07556-3) DNR % MONOCYTES (test code = 5905-5) 6.9 % EOSINOPHILS (test code = 713-8) 2.1 % BASOPHILS (test code = 706-2) 1.0 % BLASTS (test code = 709-6) DNR % NUCLEATED RBC (test code = 39434-0) DNR /100WBC COMMENT(S) (test code = 8251-1) DNR Richard F AustinCOMPREHENSIVE METABOLIC [id number] 00:00:00* Test Item Value Reference Range Interpretation Comme nts GLUCOSE (test code = 2345-7) 91 mg/dL UREA NITROGEN (BUN) (test code = 3094-0) 14 mg/dL CREATININE (test code = 2160-0) 0.80 mg/dL EGFR (test code = 19050-7) 102 mL/min/1.73m2 BUN/CREATININE RATIO (test code = 3097-3) SEE NOTE: (calc) SODIUM (test code = 2951-2) 139 mmol/L POTASSIUM (test code = 2823-3) 4.4 mmol/L CHLORIDE (test code = 2075-0) 107 mmol/L CARBON DIOXIDE (test code = 2027-9) 24 mmol/L CALCIUM (test code = 76024-6) 10.0 mg/dL PROTEIN, TOTAL (test code = 2885-2) 7.0 g/dL ALBUMIN (test code = 1751-7) 4.6 g/dL GLOBULIN (test code = 67564-9) 2.4 g/dL(calc) ALBUMIN/GLOBULIN RATIO (test code = 1759-0) 1.9 (calc) BILIRUBIN, TOTAL (test code = 1975-2) 0.6 mg/dL ALKALINE PHOSPHATASE (test code = 6768-6) 56 U/L AST (test code = 1920-8) 13 U/L ALT (test code = 1742-6) 13 U/L Richard ArcosHEMOGLOBIN [id number] 00:00:00* Test Item Value Reference Range Interpretation Comme [facility] HEMOGLOBIN A1c (test code = 4548-4) 5.0 %oftotalHgb Richard ArcosLIPID [id number] 00:00:00* Test Item Value Reference Range Interpretation Comme [facility] CHOLESTEROL, TOTAL (test cod e = 3-3) 183 mg/dL HDL CHOLESTEROL (test code = 2084-9) 41 mg/dL TRIGLYCERIDES (test code = 2571-8) 69 mg/dL LDL-CHOLESTEROL (test code = 85357-4) 126 mg/dL(calc) CHOL/HDLC RATIO (test code = 9830-1) 4.5 (calc) NON HDL CHOLESTEROL (test code = 79725-5) 142 mg/dL(calc) Richard [id number] 00:00:00* Test Item Value Reference Range Interpretation Comme [facility] TSH (test code = 3016-3) 1.17 mIU/L Richard ArcosCBC (INCLUDES DIFF/PLT)2024-07-11 00:00:00* Test Item Value Reference Range Interpretation Comme [facility] WHITE BLOOD CELL [...] cells/uL ABSOLUTE BAND NEUTROPHILS (test code = 77958-0) DNR cells/uL ABSOLUTE METAMYELOCYTES (blossom t code = 90412-9) DNR cells/uL ABSOLUTE MYELOCYTES (test code = 77864-2) DNR cells/uL ABSOLUTE PROMYELOCYTES (test code = 23652-6) DNR cells/uL ABSOLUTE LYMPHOCYTES (test code = 731-0) 2066 cells/uL ABSOLUTE MONOCYTES (test cod e = 742-7) 580 cells/uL ABSOLUTE EOSINOPHILS (test code = 711-2) 176 cells/uL ABSOLUTE BASOPHILS (test cod e = 704-7) 84 cells/uL ABSOLUTE BLASTS (test code = 50492-0) DNR cells/uL ABSOLUTE NUCLEATED RBC (test code = 16765-7) DNR cells/uL NEUTROPHILS (test code = 770-8) 65.4 % BAND NEUTROPHILS (test code = 764-1) DNR % METAMYELOCYTES (test code = 740-1) DNR % MYELOCYTES (test code = 749-2) DNR % PROMYELOCYTES (test code = 783-1) DNR % LYMPHOCYTES (test code = 736-9) 24.6 % REACTIVE LYMPHOCYTES (test code = 95478-8) DNR % MONOCYTES (test code = 5905-5) 6.9 % EOSINOPHILS (test code = 713-8) 2.1 % BASOPHILS (test code = 706-2) 1.0 % BLASTS (test code = 709-6) DNR % NUCLEATED RBC (test code = 27735-3) DNR /100WBC COMMENT(S) (test code = 8251-1) DNR Richard ArcosCOMPREHENSIVE METABOLIC [id number] 00:00:00* Test Item Value Reference Range Interpretation Comme nts GLUCOSE (test code = 2345-7) 91 mg/dL UREA NITROGEN (BUN) (test code = 3094-0) 14 mg/dL CREATININE (test code = 2160-0) 0.80 mg/dL EGFR (test code = 03066-2) 102 mL/min/1.73m2 BUN/CREATININE RATIO (test code = 3097-3) SEE NOTE: (calc) SODIUM (test code = 2951-2) 139 mmol/L POTASSIUM (test code = 2823-3) 4.4 mmol/L CHLORIDE (test code = 2075-0) 107 mmol/L CARBON DIOXIDE (test code = 8-9) 24 mmol/L CALCIUM (test code = 29048-0) 10.0 mg/dL PROTEIN, TOTAL (test code = 2885-2) 7.0 g/dL ALBUMIN (test code = 1751-7) 4.6 g/dL GLOBULIN (test code = 26038-9) 2.4 g/dL(calc) ALBUMIN/GLOBULIN RATIO (test code = 1759-0) 1.9 (calc) BILIRUBIN, TOTAL (test code = 1975-2) 0.6 mg/dL ALKALINE PHOSPHATASE (test code = 6768-6) 56 U/L AST (test code = 1920-8) 13 U/L ALT (test code = 1742-6) 13 U/L Richard ArcosHEMOGLOBIN [id number] 00:00:00* Test Item Value Reference Range Interpretation Comme [facility] HEMOGLOBIN A1c (test code = 4548-4) 5.0 %oftotalHgb Richard ArcosLIPID [id number] 00:00:00* Test Item Value Reference Range Interpretation Comme [facility] CHOLESTEROL, TOTAL (test cod e = 2093-3) 183 mg/dL HDL CHOLESTEROL (test code = 2085-9) 41 mg/dL TRIGLYCERIDES (test code = 2571-8) 69 mg/dL LDL-CHOLESTEROL (test code = 51068-4) 126 mg/dL(calc) CHOL/HDLC RATIO (test code = 9830-1) 4.5 (calc) NON HDL CHOLESTEROL (test code = 73659-6) 142 mg/dL(calc) Richard [id number] 00:00:00* Test Item Value Reference Range Interpretation [...] cells/uL ABSOLUTE BAND NEUTROPHILS (test code = 20836-4) DNR cells/uL ABSOLUTE METAMYELOCYTES (blossom t code = 53826-7) DNR cells/uL ABSOLUTE MYELOCYTES (test code = 26683-7) DNR cells/uL ABSOLUTE PROMYELOCYTES (test code = 61175-2) DNR cells/uL ABSOLUTE LYMPHOCYTES (test code = 731-0) 2066 cells/uL ABSOLUTE MONOCYTES (test cod e = 742-7) 580 cells/uL ABSOLUTE EOSINOPHILS (test code = 711-2) 176 cells/uL ABSOLUTE BASOPHILS (test cod e = 704-7) 84 cells/uL ABSOLUTE BLASTS (test code = 66475-8) DNR cells/uL ABSOLUTE NUCLEATED RBC (test code = 08376-8) DNR cells/uL NEUTROPHILS (test code = 770-8) 65.4 % BAND NEUTROPHILS (test code = 764-1) DNR % METAMYELOCYTES (test code = 740-1) DNR % MYELOCYTES (test code = 749-2) DNR % PROMYELOCYTES (test code = 783-1) DNR % LYMPHOCYTES (test code = 736-9) 24.6 % REACTIVE LYMPHOCYTES (test code = 43059-6) DNR % MONOCYTES (test code = 5905-5) 6.9 % EOSINOPHILS (test code = 713-8) 2.1 % BASOPHILS (test code = 706-2) 1.0 % BLASTS (test code = 709-6) DNR % NUCLEATED RBC (test code = 21326-9) DNR /100WBC COMMENT(S) (test code = 8251-1) DNR Richard ArcosCOMPREHENSIVE METABOLIC [id number] 00:00:00* Test Item Value Reference Range Interpretation Comme nts GLUCOSE (test code = 2345-7) 91 mg/dL UREA NITROGEN (BUN) (test code = 3094-0) 14 mg/dL CREATININE (test code = 2160-0) 0.80 mg/dL EGFR (test code = 32020-6) 102 mL/min/1.73m2 BUN/CREATININE RATIO (test code = 3097-3) SEE NOTE: (calc) SODIUM (test code = 2951-2) 139 mmol/L POTASSIUM (test code = 2823-3) 4.4 mmol/L CHLORIDE (test code = 2075-0) 107 mmol/L CARBON DIOXIDE (test code = 8-9) 24 mmol/L CALCIUM (test code = 07140-8) 10.0 mg/dL PROTEIN, TOTAL (test code = 2885-2) 7.0 g/dL ALBUMIN (test code = 1751-7) 4.6 g/dL GLOBULIN (test code = 77911-8) 2.4 g/dL(calc) ALBUMIN/GLOBULIN RATIO (test code = 1759-0) 1.9 (calc) BILIRUBIN, TOTAL (test code = 1975-2) 0.6 mg/dL ALKALINE PHOSPHATASE (test code = 6768-6) 56 U/L AST (test code = 1920-8) 13 U/L ALT (test code = 1742-6) 13 U/L Richard ArcosHEMOGLOBIN [id number] 00:00:00* Test Item Value Reference Range Interpretation Comme nts HEMOGLOBIN A1c (test code = 4548-4) 5.0 %oftotalHgb Richard ArcosLIPID [id number] 00:00:00* Test Item Value Reference Range Interpretation Comme nts CHOLESTEROL, TOTAL (test cod e = 2093-3) 183 mg/dL HDL CHOLESTEROL (test code = 2085-9) 41 mg/dL TRIGLYCERIDES (test code = 2571-8) 69 mg/dL LDL-CHOLESTEROL (test code = 62760-4) 126 mg/dL(calc) CHOL/HDLC RATIO (test code = 9830-1) 4.5 (calc) NON HDL CHOLESTEROL (test code = 11339-3) 142 mg/dL(calc) Richard [id number] 00:00:00* Test Item Value Reference Range Interpretation [...] cells/uL ABSOLUTE BAND NEUTROPHILS (test code = 13630-6) DNR cells/uL ABSOLUTE METAMYELOCYTES (blossom t code = 57619-4) DNR cells/uL ABSOLUTE MYELOCYTES (test code = 43377-0) DNR cells/uL ABSOLUTE PROMYELOCYTES (test code = 12368-0) DNR cells/uL ABSOLUTE LYMPHOCYTES (test code = 731-0) 2066 cells/uL ABSOLUTE MONOCYTES (test cod e = 742-7) 580 cells/uL ABSOLUTE EOSINOPHILS (test code = 711-2) 176 cells/uL ABSOLUTE BASOPHILS (test cod e = 704-7) 84 cells/uL ABSOLUTE BLASTS (test code = 33340-8) DNR cells/uL ABSOLUTE NUCLEATED RBC (test code = 35804-9) DNR cells/uL NEUTROPHILS (test code = 770-8) 65.4 % BAND NEUTROPHILS (test code = 764-1) DNR % METAMYELOCYTES (test code = 740-1) DNR % MYELOCYTES (test code = 749-2) DNR % PROMYELOCYTES (test code = 783-1) DNR % LYMPHOCYTES (test code = 736-9) 24.6 % REACTIVE LYMPHOCYTES (test code = 05810-7) DNR % MONOCYTES (test code = 5905-5) 6.9 % EOSINOPHILS (test code = 713-8) 2.1 % BASOPHILS (test code = 706-2) 1.0 % BLASTS (test code = 709-6) DNR % NUCLEATED RBC (test code = 48481-9) DNR /100WBC COMMENT(S) (test code = 8251-1) DNR Richard F IsrraelCOMPREHENSIVE METABOLIC [id number] 00:00:00* Test Item Value Reference Range Interpretation Comme nts GLUCOSE (test code = 2345-7) 91 mg/dL UREA NITROGEN (BUN) (test code = 3094-0) 14 mg/dL CREATININE (test code = 2160-0) 0.80 mg/dL EGFR (test code = 27672-2) 102 mL/min/1.73m2 BUN/CREATININE RATIO (test code = 3097-3) SEE NOTE: (calc) SODIUM (test code = 2951-2) 139 mmol/L POTASSIUM (test code = 2823-3) 4.4 mmol/L CHLORIDE (test code = 2075-0) 107 mmol/L CARBON DIOXIDE (test code = 2027-9) 24 mmol/L CALCIUM (test code = 33116-5) 10.0 mg/dL PROTEIN, TOTAL (test code = 2885-2) 7.0 g/dL ALBUMIN (test code = 1751-7) 4.6 g/dL GLOBULIN (test code = 65254-0) 2.4 g/dL(calc) ALBUMIN/GLOBULIN RATIO (test code = 1759-0) 1.9 (calc) BILIRUBIN, TOTAL (test code = 1975-2) 0.6 mg/dL ALKALINE PHOSPHATASE (test code = 6768-6) 56 U/L AST (test code = 1920-8) 13 U/L ALT (test code = 1742-6) 13 U/L Richard ArcosHEMOGLOBIN [id number] 00:00:00* Test Item Value Reference Range Interpretation Comme annalisa HEMOGLOBIN A1c (test code = 4548-4) 5.0 %oftotalHgb Richard ArcosLIPID [id number] 00:00:00* Test Item Value Reference Range Interpretation Comme annalisa CHOLESTEROL, TOTAL (test cod e = 2093-3) 183 mg/dL HDL CHOLESTEROL (test code = 2085-9) 41 mg/dL TRIGLYCERIDES (test code = 2571-8) 69 mg/dL LDL-CHOLESTEROL (test code = 10179-7) 126 mg/dL(calc) CHOL/HDLC RATIO (test code = 9830-1) 4.5 (calc) NON HDL CHOLESTEROL (test code = 91366-2) 142 mg/dL(calc) Richard Carrillo [id number] 00:00:00* Test Item Value Reference Range Interpretation [...] cells/uL ABSOLUTE BAND NEUTROPHILS (test code = 26136-1) DNR cells/uL ABSOLUTE METAMYELOCYTES (blossom t code = 27744-5) DNR cells/uL ABSOLUTE MYELOCYTES (test code = 74286-0) DNR cells/uL ABSOLUTE PROMYELOCYTES (test code = 02028-1) DNR cells/uL ABSOLUTE LYMPHOCYTES (test code = 731-0) 2066 cells/uL ABSOLUTE MONOCYTES (test cod e = 742-7) 580 cells/uL ABSOLUTE EOSINOPHILS (test code = 711-2) 176 cells/uL ABSOLUTE BASOPHILS (test cod e = 704-7) 84 cells/uL ABSOLUTE BLASTS (test code = 97965-3) DNR cells/uL ABSOLUTE NUCLEATED RBC (test code = 16050-5) DNR cells/uL NEUTROPHILS (test code = 770-8) 65.4 % BAND NEUTROPHILS (test code = 764-1) DNR % METAMYELOCYTES (test code = 740-1) DNR % MYELOCYTES (test code = 749-2) DNR % PROMYELOCYTES (test code = 783-1) DNR % LYMPHOCYTES (test code = 736-9) 24.6 % REACTIVE LYMPHOCYTES (test code = 52822-1) DNR % MONOCYTES (test code = 5905-5) 6.9 % EOSINOPHILS (test code = 713-8) 2.1 % BASOPHILS (test code = 706-2) 1.0 % BLASTS (test code = 709-6) DNR % NUCLEATED RBC (test code = 71067-2) DNR /100WBC COMMENT(S) (test code = 8251-1) DNR Richard Carrillo AustinCBC (INCLUDES DIFF/PLT)2024-07-11 00:00:00* Test Item Value Reference [...] cells/uL ABSOLUTE BAND NEUTROPHILS (test code = 84851-3) DNR cells/uL ABSOLUTE METAMYELOCYTES (blossom t code = 92581-3) DNR cells/uL ABSOLUTE MYELOCYTES (test code = 57405-9) DNR cells/uL ABSOLUTE PROMYELOCYTES (test code = 66253-1) DNR cells/uL ABSOLUTE LYMPHOCYTES (test code = 731-0) 2066 cells/uL ABSOLUTE MONOCYTES (test cod e = 742-7) 580 cells/uL ABSOLUTE EOSINOPHILS (test code = 711-2) 176 cells/uL ABSOLUTE BASOPHILS (test cod e = 704-7) 84 cells/uL ABSOLUTE BLASTS (test code = 33889-0) DNR cells/uL ABSOLUTE NUCLEATED RBC (test code = 86855-0) DNR cells/uL NEUTROPHILS (test code = 770-8) 65.4 % BAND NEUTROPHILS (test code = 764-1) DNR % METAMYELOCYTES (test code = 740-1) DNR % MYELOCYTES (test code = 749-2) DNR % PROMYELOCYTES (test code = 783-1) DNR % LYMPHOCYTES (test code = 736-9) 24.6 % REACTIVE LYMPHOCYTES (test code = 21048-9) DNR % MONOCYTES (test code = 5905-5) 6.9 % EOSINOPHILS (test code = 713-8) 2.1 % BASOPHILS (test code = 706-2) 1.0 % BLASTS (test code = 709-6) DNR % NUCLEATED RBC (test code = 09049-5) DNR /100WBC COMMENT(S) (test code = 8251-1) DNR Richard F IsrraelCOMPREHENSIVE METABOLIC [id number] 00:00:00* Test Item Value Reference Range Interpretation Comme nts GLUCOSE (test code = 2345-7) 91 mg/dL UREA NITROGEN (BUN) (test code = 3094-0) 14 mg/dL CREATININE (test code = 2160-0) 0.80 mg/dL EGFR (test code = 39979-3) 102 mL/min/1.73m2 BUN/CREATININE RATIO (test code = 3097-3) SEE NOTE: (calc) SODIUM (test code = 2951-2) 139 mmol/L POTASSIUM (test code = 2823-3) 4.4 mmol/L CHLORIDE (test code = 2075-0) 107 mmol/L CARBON DIOXIDE (test code = 2027-9) 24 mmol/L CALCIUM (test code = 68145-6) 10.0 mg/dL PROTEIN, TOTAL (test code = 2885-2) 7.0 g/dL ALBUMIN (test code = 1751-7) 4.6 g/dL GLOBULIN (test code = 00606-0) 2.4 g/dL(calc) ALBUMIN/GLOBULIN RATIO (test code = 1759-0) 1.9 (calc) BILIRUBIN, TOTAL (test code = 1974-) 0.6 mg/dL ALKALINE PHOSPHATASE (test code = 6768-6) 56 U/L AST (test code = 1920-8) 13 U/L ALT (test code = 1742-6) 13 U/L Richard ArcosCOMPREHENSIVE METABOLIC [id number] 00:00:00* Test Item Value Reference Range Interpretation Comme nts GLUCOSE (test code = 2345-7) 91 mg/dL UREA NITROGEN (BUN) (test code = 3094-0) 14 mg/dL CREATININE (test code = 2160-0) 0.80 mg/dL EGFR (test code = 82575-4) 102 mL/min/1.73m2 BUN/CREATININE RATIO (test code = 3097-3) SEE NOTE: (calc) SODIUM (test code = 2951-2) 139 mmol/L POTASSIUM (test code = 2823-3) 4.4 mmol/L CHLORIDE (test code = 2075-0) 107 mmol/L CARBON DIOXIDE (test code = 2027-9) 24 mmol/L CALCIUM (test code = 73689-4) 10.0 mg/dL PROTEIN, TOTAL (test code = 2885-2) 7.0 g/dL ALBUMIN (test code = 1751-7) 4.6 g/dL GLOBULIN (test code = 01065-1) 2.4 g/dL(calc) ALBUMIN/GLOBULIN RATIO (test code = 1759-0) 1.9 (calc) BILIRUBIN, TOTAL (test code = 1974-) 0.6 mg/dL ALKALINE PHOSPHATASE (test code = 6768-6) 56 U/L AST (test code = 1920-8) 13 U/L ALT (test code = 1742-6) 13 U/L Richard ArcosHEMOGLOBIN [id number] 00:00:00* Test Item Value Reference Range Interpretation Comme annalisa HEMOGLOBIN A1c (test code = 4548-4) 5.0 %oftotalHgb Richard Carrillo AustinLIPID [id number] 00:00:00* Test Item Value Reference Range Interpretation Comme annalisa CHOLESTEROL, TOTAL (test cod e = 2093-3) 183 mg/dL HDL CHOLESTEROL (test code = 2085-9) 41 mg/dL TRIGLYCERIDES (test code = 2571-8) 69 mg/dL LDL-CHOLESTEROL (test code = 51723-2) 126 mg/dL(calc) CHOL/HDLC RATIO (test code = 9830-1) 4.5 (calc) NON HDL CHOLESTEROL (test code = 30831-7) 142 mg/dL(calc) Richard Carrillo [id number] 00:00:00* Test Item Value Reference Range Interpretation Comme nts TSH (test code = 3016-3) 1.17 mIU/L Richard Carrillo AustinHEMOGLOBIN [id number] 00:00:00* Test Item Value Reference Range Interpretation Comme annalisa HEMOGLOBIN A1c (test code = 4548-4) 5.0 %oftotalHgb Richard Carrillo AustinCBC (INCLUDES DIFF/PLT)2024-07-11 00:00:00* Test Item Value Reference [...] cells/uL ABSOLUTE BAND NEUTROPHILS (test code = 58916-5) DNR cells/uL ABSOLUTE METAMYELOCYTES (blossom t code = 76726-8) DNR cells/uL ABSOLUTE MYELOCYTES (test code = 66737-9) DNR cells/uL ABSOLUTE PROMYELOCYTES (test code = 96484-9) DNR cells/uL ABSOLUTE LYMPHOCYTES (test code = 731-0) 2066 cells/uL ABSOLUTE MONOCYTES (test cod e = 742-7) 580 cells/uL ABSOLUTE EOSINOPHILS (test code = 711-2) 176 cells/uL ABSOLUTE BASOPHILS (test cod e = 704-7) 84 cells/uL ABSOLUTE BLASTS (test code = 18953-6) DNR cells/uL ABSOLUTE NUCLEATED RBC (test code = 79863-6) DNR cells/uL NEUTROPHILS (test code = 770-8) 65.4 % BAND NEUTROPHILS (test code = 764-1) DNR % METAMYELOCYTES (test code = 740-1) DNR % MYELOCYTES (test code = 749-2) DNR % PROMYELOCYTES (test code = 783-1) DNR % LYMPHOCYTES (test code = 736-9) 24.6 % REACTIVE LYMPHOCYTES (test code = 59701-1) DNR % MONOCYTES (test code = 5905-5) 6.9 % EOSINOPHILS (test code = 713-8) 2.1 % BASOPHILS (test code = 706-2) 1.0 % BLASTS (test code = 709-6) DNR % NUCLEATED RBC (test code = 87150-0) DNR /100WBC COMMENT(S) (test code = 8251-1) DNR Richard Lorena IsrraelLIPID [id number] 00:00:00* Test Item Value Reference Range Interpretation Comme nts CHOLESTEROL, TOTAL (test cod e = 2093-3) 183 mg/dL HDL CHOLESTEROL (test code = 2085-9) 41 mg/dL TRIGLYCERIDES (test code = 2571-8) 69 mg/dL LDL-CHOLESTEROL (test code = 15393-8) 126 mg/dL(calc) CHOL/HDLC RATIO (test code = 9830-1) 4.5 (calc) NON HDL CHOLESTEROL (test code = 77363-0) 142 mg/dL(calc) Richard ArcosCOMPREHENSIVE METABOLIC [id number] 00:00:00* Test Item Value Reference Range Interpretation Comme nts GLUCOSE (test code = 2345-7) 91 mg/dL UREA NITROGEN (BUN) (test code = 3094-0) 14 mg/dL CREATININE (test code = 2160-0) 0.80 mg/dL EGFR (test code = 98570-9) 102 mL/min/1.73m2 BUN/CREATININE RATIO (test code = 3097-3) SEE NOTE: (calc) SODIUM (test code = 2951-2) 139 mmol/L POTASSIUM (test code = 2823-3) 4.4 mmol/L CHLORIDE (test code = 2075-0) 107 mmol/L CARBON DIOXIDE (test code = 8-9) 24 mmol/L CALCIUM (test code = 07938-7) 10.0 mg/dL PROTEIN, TOTAL (test code = 2885-2) 7.0 g/dL ALBUMIN (test code = 1751-7) 4.6 g/dL GLOBULIN (test code = 26759-4) 2.4 g/dL(calc) ALBUMIN/GLOBULIN RATIO (test code = 1759-0) 1.9 (calc) BILIRUBIN, TOTAL (test code = 1975-2) 0.6 mg/dL ALKALINE PHOSPHATASE (test code = 6768-6) 56 U/L AST (test code = 1920-8) 13 U/L ALT (test code = 1742-6) 13 U/L Richard ArcosHEMOGLOBIN [id number] 00:00:00* Test Item Value Reference Range Interpretation Comme [facility] HEMOGLOBIN A1c (test code = 4548-4) 5.0 %oftotalHgb Richard ArcosLIPID [id number] 00:00:00* Test Item Value Reference Range Interpretation Comme [facility] CHOLESTEROL, TOTAL (test cod e = 2093-3) 183 mg/dL HDL CHOLESTEROL (test code = 2085-9) 41 mg/dL TRIGLYCERIDES (test code = 2571-8) 69 mg/dL LDL-CHOLESTEROL (test code = 50040-0) 126 mg/dL(calc) CHOL/HDLC RATIO (test code = 9830-1) 4.5 (calc) NON HDL CHOLESTEROL (test code = 79916-9) 142 mg/dL(calc) Richard [id number] 00:00:00* Test Item Value Reference Range Interpretation Comme nts TSH (test code = 3016-3) 1.17 mIU/L Richard [id number] 00:00:00* Test Item Value Reference Range Interpretation [...] cells/uL ABSOLUTE BAND NEUTROPHILS (test code = 93660-8) DNR cells/uL ABSOLUTE METAMYELOCYTES (blossom t code = 46135-1) DNR cells/uL ABSOLUTE MYELOCYTES (test code = 03289-4) DNR cells/uL ABSOLUTE PROMYELOCYTES (test code = 32287-7) DNR cells/uL ABSOLUTE LYMPHOCYTES (test code = 731-0) 2066 cells/uL ABSOLUTE MONOCYTES (test cod e = 742-7) 580 cells/uL ABSOLUTE EOSINOPHILS (test code = 711-2) 176 cells/uL ABSOLUTE BASOPHILS (test cod e = 704-7) 84 cells/uL ABSOLUTE BLASTS (test code = 21205-0) DNR cells/uL ABSOLUTE NUCLEATED RBC (test code = 01222-1) DNR cells/uL NEUTROPHILS (test code = 770-8) 65.4 % BAND NEUTROPHILS (test code = 764-1) DNR % METAMYELOCYTES (test code = 740-1) DNR % MYELOCYTES (test code = 749-2) DNR % PROMYELOCYTES (test code = 783-1) DNR % LYMPHOCYTES (test code = 736-9) 24.6 % REACTIVE LYMPHOCYTES (test code = 03730-9) DNR % MONOCYTES (test code = 5905-5) 6.9 % EOSINOPHILS (test code = 713-8) 2.1 % BASOPHILS (test code = 706-2) 1.0 % BLASTS (test code = 709-6) DNR % NUCLEATED RBC (test code = 70609-6) DNR /100WBC COMMENT(S) (test code = 8251-1) DNR Richard ArcosCOMPREHENSIVE METABOLIC [id number] 00:00:00* Test Item Value Reference Range Interpretation Comme nts GLUCOSE (test code = 2345-7) 91 mg/dL UREA NITROGEN (BUN) (test code = 3094-0) 14 mg/dL CREATININE (test code = 2160-0) 0.80 mg/dL EGFR (test code = 07386-0) 102 mL/min/1.73m2 BUN/CREATININE RATIO (test code = 3097-3) SEE NOTE: (calc) SODIUM (test code = 2951-2) 139 mmol/L POTASSIUM (test code = 2823-3) 4.4 mmol/L CHLORIDE (test code = 2075-0) 107 mmol/L CARBON DIOXIDE (test code = 8-9) 24 mmol/L CALCIUM (test code = 42931-0) 10.0 mg/dL PROTEIN, TOTAL (test code = 2885-2) 7.0 g/dL ALBUMIN (test code = 1751-7) 4.6 g/dL GLOBULIN (test code = 12283-2) 2.4 g/dL(calc) ALBUMIN/GLOBULIN RATIO (test code = 1759-0) 1.9 (calc) BILIRUBIN, TOTAL (test code = 1975-2) 0.6 mg/dL ALKALINE PHOSPHATASE (test code = 6768-6) 56 U/L AST (test code = 1920-8) 13 U/L ALT (test code = 1742-6) 13 U/L Richard ArcosHEMOGLOBIN [id number] 00:00:00* Test Item Value Reference Range Interpretation Comme nts HEMOGLOBIN A1c (test code = 4548-4) 5.0 %oftotalHgb Richard Carrillo AustinLIPID [id number] 00:00:00* Test Item Value Reference Range Interpretation Comme annalisa CHOLESTEROL, TOTAL (test cod e = 2093-3) 183 mg/dL HDL CHOLESTEROL (test code = 2085-9) 41 mg/dL TRIGLYCERIDES (test code = 2571-8) 69 mg/dL LDL-CHOLESTEROL (test code = 02697-9) 126 mg/dL(calc) CHOL/HDLC RATIO (test code = 9830-1) 4.5 (calc) NON HDL CHOLESTEROL (test code = 49511-4) 142 mg/dL(calc) Richard [id number] 00:00:00* Test Item Value Reference Range Interpretation [...] cells/uL ABSOLUTE BAND NEUTROPHILS (test code = 16904-2) DNR cells/uL ABSOLUTE METAMYELOCYTES (blossom t code = 73469-6) DNR cells/uL ABSOLUTE MYELOCYTES (test code = 51855-9) DNR cells/uL ABSOLUTE PROMYELOCYTES (test code = 94897-6) DNR cells/uL ABSOLUTE LYMPHOCYTES (test code = 731-0) 2066 cells/uL ABSOLUTE MONOCYTES (test cod e = 742-7) 580 cells/uL ABSOLUTE EOSINOPHILS (test code = 711-2) 176 cells/uL ABSOLUTE BASOPHILS (test cod e = 704-7) 84 cells/uL ABSOLUTE BLASTS (test code = 17668-7) DNR cells/uL ABSOLUTE NUCLEATED RBC (test code = 53466-5) DNR cells/uL NEUTROPHILS (test code = 770-8) 65.4 % BAND NEUTROPHILS (test code = 764-1) DNR % METAMYELOCYTES (test code = 740-1) DNR % MYELOCYTES (test code = 749-2) DNR % PROMYELOCYTES (test code = 783-1) DNR % LYMPHOCYTES (test code = 736-9) 24.6 % REACTIVE LYMPHOCYTES (test code = 64463-0) DNR % MONOCYTES (test code = 5905-5) 6.9 % EOSINOPHILS (test code = 713-8) 2.1 % BASOPHILS (test code = 706-2) 1.0 % BLASTS (test code = 709-6) DNR % NUCLEATED RBC (test code = 46667-7) DNR /100WBC COMMENT(S) (test code = 8251-1) DNR Richard F IsrraelCOMPREHENSIVE METABOLIC [id number] 00:00:00* Test Item Value Reference Range Interpretation Comme nts GLUCOSE (test code = 2345-7) 91 mg/dL UREA NITROGEN (BUN) (test code = 3094-0) 14 mg/dL CREATININE (test code = 2160-0) 0.80 mg/dL EGFR (test code = 87954-2) 102 mL/min/1.73m2 BUN/CREATININE RATIO (test code = 3097-3) SEE NOTE: (calc) SODIUM (test code = 2951-2) 139 mmol/L POTASSIUM (test code = 2823-3) 4.4 mmol/L CHLORIDE (test code = 2075-0) 107 mmol/L CARBON DIOXIDE (test code = 8-9) 24 mmol/L CALCIUM (test code = 62851-7) 10.0 mg/dL PROTEIN, TOTAL (test code = 2885-2) 7.0 g/dL ALBUMIN (test code = 1751-7) 4.6 g/dL GLOBULIN (test code = 10897-1) 2.4 g/dL(calc) ALBUMIN/GLOBULIN RATIO (test code = 1759-0) 1.9 (calc) BILIRUBIN, TOTAL (test code = 1975-2) 0.6 mg/dL ALKALINE PHOSPHATASE (test code = 6768-6) 56 U/L AST (test code = 1920-8) 13 U/L ALT (test code = 1742-6) 13 U/L Richard Carrillo AustinPOCT [id number] 20:17:00* Test Item Value Reference Range Interpretation Comme nts POCT PREG (test code = 1605) Negative On board controls acceptable with C Line (test code = 3574) Yes POCT PREG LOT # (test code = 3575) POCT PREG TEST DATE ( test code = 3576) [facility] [id number] 20:17:00* Test Item Value Reference Range Interpretation Comme nts POCT PREG (test code = 1605) Negative On board controls acceptable with C Line (test code = 3574) Yes POCT PREG LOT # (test code = 3575) POCT PREG TEST DATE ( test code = 3576) [facility], THIRD [id number] 05:52:53* Test Item Value Reference Range Interpretation Comme nts TSH, THIRD GENERATION (test code = 2821) 1.370 UIU/ML 0.400-4.100 COMPREHENSIVE METABOLIC [id number] 03:38:28* Test Item Value Reference Range Interpretation Comme nts GLUCOSE (test code = 2217) 95 MG/DL 70-99 BUN (test code = 2208) 10 MG/DL 6-20 CREATININE (test code = 2214) 0.95 MG/DL 0.60-1.30 eGFR (2020 CKD-EPI) (test code = 76665) 84 ML/MIN/1.73 >60 CALC BUN/CREAT (test code = 2235) 11 RATIO 6-28 SODIUM (test code = 2231) 143 MEQ/L 133-146 POTASSIUM (test code = 2228) 4.4 MEQ/L 3.5-5.4 CHLORIDE (test code = 2215) 106 MEQ/L 95-107 CARBON DIOXIDE (test code = 2206) 26 MEQ/L 19-31 CALCIUM (test code = 2209) 9.9 MG/DL 8.5-10.5 PROTEIN, TOTAL (test code = 9) 7.1 G/DL 6.1-8.3 ALBUMIN (test code = 2201) 4.7 G/DL 3.5-5.2 CALC GLOBULIN (test code = 2240) 2.4 G/DL 1.9-3.7 CALC A/G RATIO (test code = 2234) 2.0 RATIO 1.0-2.6 BILIRUBIN, TOTAL (test code = 7) 0.8 MG/DL See_Comment [Automated me ssage] The system which generated this result transmitted reference range: <=1.2. The reference range was not used to interpret this result as normal/abnormal. ALKALINE PHOSPHATASE (test code = 2203) 80 U/L 40-112 AST (test code = 2218) 14 U/L 9-40 ALT (test code = 2219) 9 U/L 5-40 LIPID [id number] 03:38:28* Test Item Value Reference Range Interpretation Comme nts CHOLESTEROL (test code = 0) 204 MG/DL <200 H TRIGLYCERIDES (test code = 2232) 91 MG/DL <150 HDL CHOLESTEROL (test code = 0) 36 MG/DL >39 L CALC LDL CHOL (test code = 7) 148 MG/DL <100 H NOTE: CALCULATED LDL IS BASED ON JOSE RAMON-AGEE METHOD WHICHINCLUDES ADJUSTABLE TRIGLYCERIDE:VLDL CHOLESTEROL RATIO.THIS FACTOR VARIES BY MEASURED TRIGLYCERIDE AND NON-HDLCHOLESTEROL CONCENTRATIONS WITH INCREASED CALCULATED LDL SEENIN HIGHER TRIGLYCERIDE OR LOWER NON-HDL SPECIMENS. FOR MOREINFORMATION, SEE CLIENT ANNOUNCEMENT AT [email or web address] RISK RATIO LDL/HDL (test code = 2238) 4.11 RATIO <3.22 H HEMOGLOBIN [id number] 02:52:16* Test Item Value Reference Range Interpretation Comme nts HEMOGLOBIN A1c (test code = 89493) 4.9 % 4.2-5.6 UNLESS OTHERWISE INDICATED, ALL TESTING PERFORMED AT [facility] [address] [place] [id number] DIGITAL STRATEGY MANAGER: FAHAD RUANO M.D. CLIA NUMBER [id number] [place]. [id number] CBC W/AUTO DIFF WITH [id number] 01:58:08* Test Item Value Reference Range Interpretation [...] 0.00-0.10 ABS NUCLEATED RBCS (test code = 06551) 0.00 K/UL 0.00-0.11 TSH, THIRD [id number] 00:00:00* Test Item Value Reference Range Interpretation Comme nts TSH, THIRD GENERATION (test code = 2821) 1.370 UIU/ML Richard ArcosHEMOGLOBIN [id number] 00:00:00* Test Item Value Reference Range Interpretation Comme nts HEMOGLOBIN A1c (test code = 69785) 4.9 % Richard ArcosCBC W/AUTO [id number] 00:00:00* Test Item Value Reference Range Interpretation [...] ABS NUCLEATED RBCS (test cod e = 38872) 0.00 K/UL Richard ArcosCOMPREHENSIVE METABOLIC [id number] 00:00:00* Test Item Value Reference Range Interpretation Comme nts GLUCOSE (test code = 2217) 95 MG/DL BUN (test code = 2208) 10 MG/DL CREATININE (test code = 2214) 0.95 MG/DL eGFR (2020 CKD-EPI) (test co de = 15095) 84 ML/MIN/1.73 CALC BUN/CREAT (test code = [...] code = 2219) 9 U/L Richard ArcosLIPID [id number] 00:00:00* Test Item Value Reference Range Interpretation Comme nts CHOLESTEROL (test code = 2210) 204 MG/DL TRIGLYCERIDES (test code = 2232) 91 MG/DL HDL CHOLESTEROL (test code = 2220) 36 MG/DL CALC LDL CHOL (test code = 2237) 148 MG/DL RISK RATIO LDL/HDL (test cod e = 2238) 4.11 RATIO Richard ArcosTSH, THIRD [id number] 00:00:00* Test Item Value Reference Range Interpretation Comme [facility] TSH, THIRD GENERATION (test code = 2821) 1.370 UIU/ML Richard ArcosHEMOGLOBIN [id number] 00:00:00* Test Item Value Reference Range Interpretation Comme [facility] HEMOGLOBIN A1c (test code = 22954) 4.9 % Richard ArcosCBC W/AUTO [id number] 00:00:00* Test Item Value Reference Range Interpretation [...] ABS NUCLEATED RBCS (test cod e = 87976) 0.00 K/UL Richard ArcosCOMPREHENSIVE METABOLIC [id number] 00:00:00* Test Item Value Reference Range Interpretation Comme nts GLUCOSE (test code = 2217) 95 MG/DL BUN (test code = 2208) 10 MG/DL CREATININE (test code = 2214) 0.95 MG/DL eGFR (2020 CKD-EPI) (test co de = 92146) 84 ML/MIN/1.73 CALC BUN/CREAT (test code = [...] code = 2219) 9 U/L Richard ArcosLIPID [id number] 00:00:00* Test Item Value Reference Range Interpretation Comme nts CHOLESTEROL (test code = 2210) 204 MG/DL TRIGLYCERIDES (test code = 2232) 91 MG/DL HDL CHOLESTEROL (test code = 2220) 36 MG/DL CALC LDL CHOL (test code = 2237) 148 MG/DL RISK RATIO LDL/HDL (test cod e = 2238) 4.11 RATIO Richard ArcosTSH, THIRD [id number] 00:00:00* Test Item Value Reference Range Interpretation Comme annalisa TSH, THIRD GENERATION (test code = 2821) 1.370 UIU/ML Richard ArcosHEMOGLOBIN [id number] 00:00:00* Test Item Value Reference Range Interpretation Comme annalisa HEMOGLOBIN A1c (test code = 75174) 4.9 % Richard ArcosCBC W/AUTO [id number] 00:00:00* Test Item Value Reference Range Interpretation [...] ABS NUCLEATED RBCS (test cod e = 63741) 0.00 K/UL Richard ArcosCOMPREHENSIVE METABOLIC [id number] 00:00:00* Test Item Value Reference Range Interpretation Comme nts GLUCOSE (test code = 2217) 95 MG/DL BUN (test code = 2208) 10 MG/DL CREATININE (test code = 2214) 0.95 MG/DL eGFR (2020 CKD-EPI) (test co de = 31654) 84 ML/MIN/1.73 CALC BUN/CREAT (test code = [...] code = 2219) 9 U/L Richard ArcosLIPID [id number] 00:00:00* Test Item Value Reference Range Interpretation Comme nts CHOLESTEROL (test code = 2210) 204 MG/DL TRIGLYCERIDES (test code = 2232) 91 MG/DL HDL CHOLESTEROL (test code = 2220) 36 MG/DL CALC LDL CHOL (test code = 2237) 148 MG/DL RISK RATIO LDL/HDL (test cod e = 2238) 4.11 RATIO Richard ArcosTSH, THIRD [id number] 00:00:00* Test Item Value Reference Range Interpretation Comme nts TSH, THIRD GENERATION (test code = 2821) 1.370 UIU/ML Richard ArcosHEMOGLOBIN [id number] 00:00:00* Test Item Value Reference Range Interpretation Comme nts HEMOGLOBIN A1c (test code = 20334) 4.9 % Richard ArcosCBC W/AUTO [id number] 00:00:00* Test Item Value Reference Range Interpretation [...] ABS NUCLEATED RBCS (test cod e = 89632) 0.00 K/UL Richard ArcosCOMPREHENSIVE METABOLIC [id number] 00:00:00* Test Item Value Reference Range Interpretation Comme nts GLUCOSE (test code = 2217) 95 MG/DL BUN (test code = 2208) 10 MG/DL CREATININE (test code = 2214) 0.95 MG/DL eGFR (2020 CKD-EPI) (test co de = 73860) 84 ML/MIN/1.73 CALC BUN/CREAT (test code = [...] code = 2219) 9 U/L Richard ArcosLIPID [id number] 00:00:00* Test Item Value Reference Range Interpretation Comme nts CHOLESTEROL (test code = 2210) 204 MG/DL TRIGLYCERIDES (test code = 2232) 91 MG/DL HDL CHOLESTEROL (test code = 2220) 36 MG/DL CALC LDL CHOL (test code = 2237) 148 MG/DL RISK RATIO LDL/HDL (test cod e = 2238) 4.11 RATIO Richard ArcosTSH, THIRD [id number] 00:00:00* Test Item Value Reference Range Interpretation Comme annalisa TSH, THIRD GENERATION (test code = 2821) 1.370 UIU/ML Richard ArcosHEMOGLOBIN [id number] 00:00:00* Test Item Value Reference Range Interpretation Comme annalisa HEMOGLOBIN A1c (test code = 00304) 4.9 % Richard ArcosCBC W/AUTO [id number] 00:00:00* Test Item Value Reference Range Interpretation [...] ABS NUCLEATED RBCS (test cod e = 87284) 0.00 K/UL Richard ArcosCOMPREHENSIVE METABOLIC [id number] 00:00:00* Test Item Value Reference Range Interpretation Comme nts GLUCOSE (test code = 2217) 95 MG/DL BUN (test code = 2208) 10 MG/DL CREATININE (test code = 2214) 0.95 MG/DL eGFR (2020 CKD-EPI) (test co de = 49629) 84 ML/MIN/1.73 CALC BUN/CREAT (test code = [...] code = 2219) 9 U/L Richard ArcosLIPID [id number] 00:00:00* Test Item Value Reference Range Interpretation Comme nts CHOLESTEROL (test code = 2210) 204 MG/DL TRIGLYCERIDES (test code = 2232) 91 MG/DL HDL CHOLESTEROL (test code = 2220) 36 MG/DL CALC LDL CHOL (test code = 2237) 148 MG/DL RISK RATIO LDL/HDL (test cod e = 2238) 4.11 RATIO Richard ArcosTSH, THIRD [id number] 00:00:00* Test Item Value Reference Range Interpretation Comme annalisa TSH, THIRD GENERATION (test code = 2821) 1.370 UIU/ML Richard ArcosHEMOGLOBIN [id number] 00:00:00* Test Item Value Reference Range Interpretation Comme annalisa HEMOGLOBIN A1c (test code = 91441) 4.9 % Richard ArcosCBC W/AUTO [id number] 00:00:00* Test Item Value Reference Range Interpretation [...] ABS NUCLEATED RBCS (test cod e = 74808) 0.00 K/UL Richard ArcosCOMPREHENSIVE METABOLIC [id number] 00:00:00* Test Item Value Reference Range Interpretation Comme nts GLUCOSE (test code = 2217) 95 MG/DL BUN (test code = 2208) 10 MG/DL CREATININE (test code = 2214) 0.95 MG/DL eGFR (2020 CKD-EPI) (test co de = 23275) 84 ML/MIN/1.73 CALC BUN/CREAT (test code = [...] ALT (test code = 2219) 9 U/L iRchard ArcosLIPID [id number] 00:00:00* Test Item Value Reference Range Interpretation Comme nts CHOLESTEROL (test code = 2210) 204 MG/DL TRIGLYCERIDES (test code = 2232) 91 MG/DL HDL CHOLESTEROL (test code = 2220) 36 MG/DL CALC LDL CHOL (test code = 2237) 148 MG/DL RISK RATIO LDL/HDL (test cod e = 2238) 4.11 RATIO Richard ArcosTSH, THIRD [id number] 00:00:00* Test Item Value Reference Range Interpretation Comme nts TSH, THIRD GENERATION (test code = 2821) 1.370 UIU/ML Richard ArcosHEMOGLOBIN [id number] 00:00:00* Test Item Value Reference Range Interpretation Comme nts HEMOGLOBIN A1c (test code = 60565) 4.9 % Richard ArcosCBC W/AUTO [id number] 00:00:00* Test Item Value Reference Range Interpretation [...] ABS NUCLEATED RBCS (test cod e = 81676) 0.00 K/UL Richard ArcosCOMPREHENSIVE METABOLIC [id number] 00:00:00* Test Item Value Reference Range Interpretation Comme nts GLUCOSE (test code = 2217) 95 MG/DL BUN (test code = 2208) 10 MG/DL CREATININE (test code = 2214) 0.95 MG/DL eGFR (2020 CKD-EPI) (test co de = 85696) 84 ML/MIN/1.73 CALC BUN/CREAT (test code = [...] code = 2219) 9 U/L Richard ArcosLIPID [id number] 00:00:00* Test Item Value Reference Range Interpretation Comme nts CHOLESTEROL (test code = 2210) 204 MG/DL TRIGLYCERIDES (test code = 2232) 91 MG/DL HDL CHOLESTEROL (test code = 2220) 36 MG/DL CALC LDL CHOL (test code = 2237) 148 MG/DL RISK RATIO LDL/HDL (test cod e = 2238) 4.11 RATIO Richard ArcosCBC W/AUTO [id number] 00:00:00* Test Item Value Reference Range Interpretation [...] ABS NUCLEATED RBCS (test cod e = 01525) 0.00 K/UL Richard ArcosTSH, THIRD [id number] 00:00:00* Test Item Value Reference Range Interpretation Comme nts TSH, THIRD GENERATION (test code = 2821) 1.370 UIU/ML Richard ArcosHEMOGLOBIN [id number] 00:00:00* Test Item Value Reference Range Interpretation Comme nts HEMOGLOBIN A1c (test code = 98820) 4.9 % Richard ArcosCOMPREHENSIVE METABOLIC [id number] 00:00:00* Test Item Value Reference Range Interpretation Comme nts GLUCOSE (test code = 2217) 95 MG/DL BUN (test code = 2208) 10 MG/DL CREATININE (test code = 2214) 0.95 MG/DL eGFR (2020 CKD-EPI) (test co de = 04097) 84 ML/MIN/1.73 CALC BUN/CREAT (test code = [...] (test code = 2219) 9 U/L Richard ArcosCBC W/AUTO [id number] 00:00:00* Test Item Value Reference Range Interpretation [...] ABS NUCLEATED RBCS (test cod e = 87298) 0.00 K/UL Richard F AustinCOMPREHENSIVE METABOLIC [id number] 00:00:00* Test Item Value Reference Range Interpretation Comme nts GLUCOSE (test code = 2217) 95 MG/DL BUN (test code = 2208) 10 MG/DL CREATININE (test code = 2214) 0.95 MG/DL eGFR (2020 CKD-EPI) (test co de = 67988) 84 ML/MIN/1.73 CALC BUN/CREAT (test code = [...] code = 2219) 9 U/L Richard ArcosLIPID [id number] 00:00:00* Test Item Value Reference Range Interpretation Comme nts CHOLESTEROL (test code = 2210) 204 MG/DL TRIGLYCERIDES (test code = 2232) 91 MG/DL HDL CHOLESTEROL (test code = 2220) 36 MG/DL CALC LDL CHOL (test code = 2237) 148 MG/DL RISK RATIO LDL/HDL (test cod e = 2238) 4.11 RATIO Richard LudwigH, THIRD [id number] 00:00:00* Test Item Value Reference Range Interpretation Comme nts TSH, THIRD GENERATION (test code = 2821) 1.370 UIU/ML Richard ArcosLIPID [id number] 00:00:00* Test Item Value Reference Range Interpretation Comme nts CHOLESTEROL (test code = 2210) 204 MG/DL TRIGLYCERIDES (test code = 2232) 91 MG/DL HDL CHOLESTEROL (test code = 2220) 36 MG/DL CALC LDL CHOL (test code = 2237) 148 MG/DL RISK RATIO LDL/HDL (test cod e = 2238) 4.11 RATIO Richard ArcosHEMOGLOBIN [id number] 00:00:00* Test Item Value Reference Range Interpretation Comme nts HEMOGLOBIN A1c (test code = 72647) 4.9 % Richard LudwigH, THIRD [id number] 00:00:00* Test Item Value Reference Range Interpretation Comme nts TSH, THIRD GENERATION (test code = 2821) 1.370 UIU/ML Richard ArcosCBC W/AUTO [id number] 00:00:00* Test Item Value Reference Range Interpretation [...] ABS NUCLEATED RBCS (test cod e = 53500) 0.00 K/UL Richard ArcosCOMPREHENSIVE METABOLIC [id number] 00:00:00* Test Item Value Reference Range Interpretation Comme nts GLUCOSE (test code = 2217) 95 MG/DL BUN (test code = 2208) 10 MG/DL CREATININE (test code = 2214) 0.95 MG/DL eGFR (2020 CKD-EPI) (test co de = 16540) 84 ML/MIN/1.73 CALC BUN/CREAT (test code = [...] code = 2219) 9 U/L Richard ArcosLIPID [id number] 00:00:00* Test Item Value Reference Range Interpretation Comme nts CHOLESTEROL (test code = 2210) 204 MG/DL TRIGLYCERIDES (test code = 2232) 91 MG/DL HDL CHOLESTEROL (test code = 2220) 36 MG/DL CALC LDL CHOL (test code = 2237) 148 MG/DL RISK RATIO LDL/HDL (test cod e = 2238) 4.11 RATIO Richard ArcosTSH, THIRD [id number] 00:00:00* Test Item Value Reference Range Interpretation Comme annalisa TSH, THIRD GENERATION (test code = 2821) 1.370 UIU/ML Richard ArcosHEMOGLOBIN [id number] 00:00:00* Test Item Value Reference Range Interpretation Comme annalisa HEMOGLOBIN A1c (test code = 11177) 4.9 % Richard ArcosHEMOGLOBIN [id number] 00:00:00* Test Item Value Reference Range Interpretation Comme nts HEMOGLOBIN A1c (test code = 38994) 4.9 % Richard ArcosCBC W/AUTO [id number] 00:00:00* Test Item Value Reference Range Interpretation [...] ABS NUCLEATED RBCS (test cod e = 06021) 0.00 K/UL Richard ArcosCOMPREHENSIVE METABOLIC [id number] 00:00:00* Test Item Value Reference Range Interpretation Comme nts GLUCOSE (test code = 2217) 95 MG/DL BUN (test code = 2208) 10 MG/DL CREATININE (test code = 2214) 0.95 MG/DL eGFR (2020 CKD-EPI) (test co de = 90707) 84 ML/MIN/1.73 CALC BUN/CREAT (test code = [...] (test code = 2219) 9 U/L Richard Lorena IsrraelLIPID [id number] 00:00:00* Test Item Value Reference Range Interpretation Comme nts CHOLESTEROL (test code = 2210) 204 MG/DL TRIGLYCERIDES (test code = 2232) 91 MG/DL HDL CHOLESTEROL (test code = 2220) 36 MG/DL CALC LDL CHOL (test code = 2237) 148 MG/DL RISK RATIO LDL/HDL (test cod e = 2238) 4.11 RATIO Richard Casillas, THIRD [id number] 00:00:00* Test Item Value Reference Range Interpretation Comme nts TSH, THIRD GENERATION (test code = 2821) 1.370 UIU/ML Richard ArcosHEMOGLOBIN [id number] 00:00:00* Test Item Value Reference Range Interpretation Comme nts HEMOGLOBIN A1c (test code = 81087) 4.9 % Richard ArcosCBC W/AUTO [id number] 00:00:00* Test Item Value Reference Range Interpretation [...] ABS NUCLEATED RBCS (test cod e = 44610) 0.00 K/UL Richard ArcosCOMPREHENSIVE METABOLIC [id number] 00:00:00* Test Item Value Reference Range Interpretation Comme nts GLUCOSE (test code = 2217) 95 MG/DL BUN (test code = 2208) 10 MG/DL CREATININE (test code = 2214) 0.95 MG/DL eGFR (2020 CKD-EPI) (test co de = 94695) 84 ML/MIN/1.73 CALC BUN/CREAT (test code = [...] code = 2219) 9 U/L Richard ArcosLIPID [id number] 00:00:00* Test Item Value Reference Range Interpretation Comme nts CHOLESTEROL (test code = 2210) 204 MG/DL TRIGLYCERIDES (test code = 2232) 91 MG/DL HDL CHOLESTEROL (test code = 2220) 36 MG/DL CALC LDL CHOL (test code = 2237) 148 MG/DL RISK RATIO LDL/HDL (test cod e = 2238) 4.11 RATIO Richard ArcosPOCT [id number] 17:08:00* Test Item Value Reference Range Interpretation Comme nts POCT PREG (test code = 1605) Negative On board controls acceptable with C Line (test code = 3574) Yes POCT PREG LOT # (test code = 3574) [id number] POCT PREG TEST DATE ( test code = 3576) 02/03/2024 Lab Interpretation (test cod e = 72688-7) [id number]:08:00* Test Item Value Reference Range Interpretation Comme nts POCT PREG (test code = 1605) Negative On board controls acceptable with C Line (test code = 3574) Yes POCT PREG LOT # (test code = 3575) [id number] POCT PREG TEST DATE ( test code = 3576) 02/03/2024 Lab Interpretation (test cod e = 86869-1) [facility] [id number] 20:09:00* Test Item Value Reference Range Interpretation Comme nts POCT PREG (test code = 1605) Negative On board controls acceptable with C Line (test code = 3574) Yes POCT PREG LOT # (test code = 3575) [id number] POCT PREG TEST DATE ( test code = 3576) 09/16/2023 [facility] [id number] 20:09:00* Test Item Value Reference Range Interpretation Comme nts POCT PREG (test code = 1605) Negative On board controls acceptable with C Line (test code = 3574) Yes POCT PREG LOT # (test code = 3575) [id number] POCT PREG TEST DATE ( test code = 3576) 09/16/2023 [facility]/[id number] 17:24:49* Test Item Value Reference Range Interpretation Comme nts ANTI-SMRNP (test code = 6316725660) Negative Negative NATHALIE (test code = NATHALIE) Positive - Antibod y detected.Negative - No antibody detected. Lab Interpretation (test code = 16039-6) [facility]SS[facility](RO)2022-09-12 17:24:49* Test Item Value Reference Range Interpretation Comme nts ANTI-SSA(RO) (test code = 9179874097) Negative Negative NATHALIE (test code = NATHALIE) Positive - Antibod y detected.Negative - No antibody detected. Lab Interpretation (test code = 34869-0) [facility]-SSB([place])2022-09-12 17:24:49* Test Item Value Reference Range Interpretation Comme nts Anti-SSB(LA) (test code = 8917529520) Negative Negative NATHALIE (test code = NATHALIE) Positive - Antibod y detected.Negative - No antibody detected. Lab Interpretation (test code = 39377-3) [facility] [id number] 17:24:48* Test Item Value Reference Range Interpretation Comme nts ANTI-DSDNA (test code = 0076349305) See_Comment [Automated message] The system which generated this result transmitted reference range: 0.0 - 4.0 IU/mL. The reference range was not used to interpret this result as normal/abnormal. NATHALIE (test code = NATHALIE) Negative ? ?< or = 4 IU/mLPositive ? ? ?> or = 10 IU/mLIndetermin ate ?5-9 IU/mL Lab Interpretation (test code = 98445-3) [facility], [id number] 00:41:07* Test Item Value Reference Range Interpretation Comme nts VIT B12 (test code = 9574672092) 266 pg/mL 240-930 NATHALIE (test code = NATHALIE) Biotin has been reported to cause a positive bias, interpret results relative to patient's use of biotin. Lab Interpretation (test code = 19529-9) [facility] [id number] 00:21:46 * Test Item Value Reference Range Interpretation Comme nts TSH (test code = 8047315682) 0.72 See_Comment [Automated Fruitfullla ge] The system which generated this result transmitted reference range: 0.45 - 4.70 mIU/L. The reference range was not used to interpret this result as normal/abnormal. Lab Interpretation (test code = 16570-9) [facility] [id number] 00:08:06* Test Item Value Reference Range Interpretation Comme nts FREE T4 (test code = 8131270658) 1.15 See_Comment [Automated Fruitfullla ge] The system which generated this result transmitted reference range: 0.78 - 2.20 ng/dL:. The reference range was not used to interpret this result as normal/abnormal. Lab Interpretation (test code = 26790-1) Normal [facility]-REACTIVE [id number] 17:31:36* Test Item Value Reference Range Interpretation Comme nts CRP (test code = 2009810977) 0.4 mg/dL <=0.8 Lab Interpretation (test cod e = 13546-8) Normal [facility]-REACTIVE [id number] 17:31:36* Test Item Value Reference Range Interpretation Comme nts CRP (test code = 8578334942) 0.4 mg/dL <=0.8 Lab Interpretation (test cod e = 60709-3) Normal [facility]-REACTIVE [id number] 17:31:36* Test Item Value Reference Range Interpretation Comme nts CRP (test code = 1305660034) 0.4 mg/dL <=0.8 Lab Interpretation (test cod e = 83972-3) [facility], [id number] 08:38:28* Test Item Value Reference Range Interpretation Comme nts VIT D 25OH (test code = 96155-2) 23 ng/mL 25-80 L NATHALIE (test code = NATHALIE) Deficiency: <20 ng/mLInsufficiency: 20-24 ng/mLOptimal: 25-80 ng/mL Lab Interpretation (test code = 76751-3) [facility], [id number] 08:38:28* Test Item Value Reference Range Interpretation Comme nts VIT D 25OH (test code = 11809-6) 23 ng/mL 25-80 L NATHALIE (test code = NATHALIE) Deficiency: <20 ng/mLInsufficiency: 20-24 ng/mLOptimal: 25-80 ng/mL Lab Interpretation (test code = 13017-4) [facility], [id number] 08:38:28* Test Item Value Reference Range Interpretation Comme nts VIT D 25OH (test code = 12985-9) 23 ng/mL 25-80 L NATHALIE (test code = NATHALIE) Deficiency: <20 ng/mLInsufficiency: 20-24 ng/mLOptimal: 25-80 ng/mL Lab Interpretation (test code = 93430-8) [facility] CenterSEDIMENTATION [id number] 05:38:05* Test Item Value Reference Range Interpretation Comme nts ESR (test code = 21630-8) 14 See_Comment [Automated message] The system which generated this result transmitted reference range: 0 - 20 mm/HR. The reference range was not used to interpret this result as normal/abnormal. Lab Interpretation (test code = 50723-4) Normal [facility] [id number] 05:38:05* Test Item Value Reference Range Interpretation Comme nts ESR (test code = 77085-9) 14 See_Comment [Automated message] The system which generated this result transmitted reference range: 0 - 20 mm/HR. The reference range was not used to interpret this result as normal/abnormal. Lab Interpretation (test code = 57938-7) Normal [facility] [id number] 05:38:05* Test Item Value Reference Range Interpretation Comme nts ESR (test code = 75778-4) 14 See_Comment [Automated message] The system which generated this result transmitted reference range: 0 - 20 mm/HR. The reference range was not used to interpret this result as normal/abnormal. Lab Interpretation (test code = 50389-3) [facility]TH[facility] [id number] 00:05:00 * Test Item Value Reference Range Interpretation Comme nts TSH (test code = 8065146971) See_Comment L [Automated messa ge] The system which generated this result transmitted reference range: 0.45 - 4.70 mIU/L. The reference range was not used to interpret this result as normal/abnormal. Lab Interpretation (test code = 85435-2) [facility]normal [facility] [id number] 00:05:00 * Test Item Value Reference Range Interpretation Comme nts TSH (test code = 2720562970) See_Comment L [Automated messa ge] The system which generated this result transmitted reference range: 0.45 - 4.70 mIU/L. The reference range was not used to interpret this result as normal/abnormal. Lab Interpretation (test code = 86628-2) Abnormal [place] [address] [id number] 23:51:00* Test Item Value Reference Range Interpretation Comme nts FREE T4 (test code = 9440330120) 1.93 ng/dL 0.78-2.2 Lab Interpretation (test cod e = 61056-6) Normal [place] [address] [id number] 23:51:00* Test Item Value Reference Range Interpretation Comme nts FREE T4 (test code = 5869306663) 1.93 ng/dL 0.78-2.2 Lab Interpretation (test cod e = 47781-1) Normal [facility] Notes Date/Time Note Provider Source [facility]2025-09-04 00:00:00 [facility]2025-08-26 00:00:00 [facility]2025-08-20 00:00:00 [facility]2025-08-14 00:00:00 [facility]2025-08-12 00:00:00 [facility]2025-07-29 00:00:00 [facility]2025-07-11 00:00:00 [facility]2025-05-01 00:00:00 [facility]2025-04-14 00:00:00 [facility]2025-04-02 00:00:00 [facility]2024-10-07 11:53:47 Please review and advise. ZAC 04/23/23 Ninoska Quijano [facility]2024-10-07 09:43:18 Patient is calling again regarding getting lab orders placed. Debbie [facility]onPark[facility] HospitalHwlacb7397-76-06 09:23:17 Called and scheduled patient for 12/31/23 for IUD removal. Estella LozanoParkview Health Bryan HospitalLcpzhm6543-92-49 12:39:55 Called pt; left v/m to schedule. Ss 12/21 @ 12:40pm Flori PepperParkview Health Bryan HospitalRivhfz6020-33-16 08:47:49 Nita Schroeder is a 28 year old female is calling to be scheduled for IUD removal. Patient seen on 11/05 for consult and calling to schedule. Please call. Thank you. Ptarizia UrbanoParkview Health Bryan HospitalZzkxqo7133-75-65 14:55:24 Called to speak with patient. She states she is still taking the medication - 1.5 tabs (75 +37.5mg) every evening. Dinah Cao RNParkview Health Bryan HospitalJsaunk7258-71-67 09:23:16 Ok we will see what It shows Is she still taking Effexor T [facility] HospitalFlntsk6960-08-01 09:00:22 Contacted patient and notified her per provider thyroid labs have been placed. She may have them drawn Mon-Fri 730a-445p. Patient reports she just got off her cycle last week, she is on control and has not been very active since she doesn't feel well. She states she will take an at home UPT. Marjorie Fay LVN 08/12/2023 9:02 AM Marjorie Fay [facility]2024-03-25 16:06:52 I put the order in, has she taken a home UPT? T [place] [id number] 15:49:36 Please review and advise [facility]2024-03-25 15:45:26 Nita Schroeder is a 27 year old female Pt called wanting to see if pcp can send lab orders to check her Thyroid levels. Pt states wakes up nauseous, tried all the time, & can't sleep at night. Pt declined apt due to self pay lakeisha. 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 Pasha RichardParkview Health Bryan Hospital
--- NOTE | 2025-02-22 17:13 | RAD REPORT ---
EXAM: OB Limited HISTORY: ABD CRAMPING, COMPARISON: None TECHNIQUE: Multiple grayscale and color Doppler images were obtained in a transabdominal pelvic ultra sound. Spectral analysis of the Doppler waveforms of the ovaries were performed. FINDINGS: Single IUP identified. Fetus is in cephalic position. The placenta is fundal. No previa. The femur le ngth measures 1.1 cm which is consistent with 13 week 2 day. The cervix is closed measuring 2.8 cm. heart rate measured at 140 bpm. Neither ovary visualized. IMPRESSION: Single live IUP with positive heart tones measuring 13 week 2 day by femur length.
[2025-02-22] MEDS ORDERED: NA CHLORIDE 0.9% 1,000 ML ONE (18:02)
[2025-02-22] MEDS ORDERED: METOCLOPRAMIDE 10 MG/2mL INJ ONE (18:02)
[2025-02-22 18:14] LABS: Absolute Lymphocytes (CBC) 1.9 K/uL (0.7-4.9); Hematocrit 38.5 % (36.0-45.0); Hemoglobin 13.5 g/dL (12.0-15.0); MCH 31.2 pg (27.0-35.0); MCHC 35.0 g/dL (32.0-36.0); MCV 89.2 fL (80-100); MPV 7.4 fL (7.6-11.3); Nucleated RBC Absolute Count 0.0 (0-0); Nucleated Red Blood Cells % 0.1 % (0-0); RBC Red Blood Cell Count 4.32 M/uL (3.86-4.86); White Blood Count 8.40 thou/uL (4.3-10.9)
[2025-02-22 18:27] LABS: Anion Gap 10.5 mEq/L (5.0-15.0); BUN Blood Urea Nitrogen 10.0 mg/dL (7-18); Glucose Level 92.0 mg/dL (74-106); Magnesium 2.1 mg/dL (1.6-2.4); Potassium 3.5 mEq/L (3.5-5.1)
[2025-02-22] MEDS ORDERED: FAMOTIDINE 20 MG/2 ML VIAL IV ONE (19:30)
[2025-02-22 19:59] LABS: Sqamous Epithelial <5 /HPF (None Seen); Urine Culture Reflex Order REFLEXED; Urine Microscopic Reflex YN ORDER UMIC
--- NOTE | 2025-02-22 20:05 | EDPHYS ---
Physician Documentation [facility] Name: Penelope Slater Age: 29 yrs Sex: Female : 1995 Arrival Date: 02/22/2025 Time: 16:28 Bed 8 Private MD: ED Physician Jennifer Prince HPI: 02/22 16:36 This 29 yrs old Female presents to ER via Ambulatory with complaints of 14 wks sb4 , dehydrated. 16:36 The patient presents to the emergency department with nausea and vomiting, and is sb4 continuous. The estimated gestational age is 14 weeks. course: care: private OB physician, the patient's last check was February 22, 2025, Leakage of Fluid: none appreciated, Ultrasound: the patient had an ultrasound, Risk/complications: obesity. Patient reports nausea and vomiting, inability to keep anything down for a few days now. States that she is approximately 14 weeks , was diagnosed with hyperemesis gravidarum. States that she has been prescribed Reglan, Diclegis, ondansetron, and Phenergan without improvement in her symptoms. Did see her OB today. 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 - Infectious Disease History:: Denies. - Social history:: Smoking status: Patient denies any tobacco usage or history of. ROS: 16:36 Constitutional: Negative for fever, chills, and weight loss, sb4 16:36 Abdomen/GI: Positive for nausea and vomiting, 16:36 All other systems are negative, Exam: 16:36 Head/Face: Normocephalic, atraumatic. Eyes: Extra-ocular motions intact. Periorbital sb4 areas with no swelling, redness, or edema. Cardiovascular: Regular rate and rhythm with a normal S1 and S2. Respiratory: No increased work of breathing, no retractions or nasal flaring. Abdomen/GI: Soft, non-tender, no distension. Skin: Warm, dry with normal turgor. Normal color with no rashes, no lesions, and no evidence of cellulitis. 16:36 Constitutional: The patient appears alert, awake, anxious, obese, Vital Signs: 16:33 BP 121 / 73; Pulse 79; Resp 18; Temp 98.1; Pulse Ox 100% ; Weight 124.74 kg; Height 5 me1 ft. 7 in. ; 20:26 BP 129 / 88; Pulse 76; Resp 18; Temp 97.6; Pulse Ox 100% on R/A; kb4 16:33 Body Mass Index 43.07 (124.74 kg, 170.18 cm) me1 MDM: 16:31 Medical Screening Exam initiated sb4 19:27 Differential diagnosis: dehydration, electrolyte abnormality, HG, gastroenteritis. sb4 Counseling: I had a detailed discussion with the patient and/or guardian regarding the historical points, exam findings, and any diagnostic results supporting the discharge/admit diagnosis, lab results, radiology results, the need for outpatient follow up, an OB/Gyne specialist, to return to the emergency department if symptoms worsen or persist or if there are any questions or concerns that arise at home. Awaiting: labs results, urine. 20:05 Data reviewed: vital signs, nurses notes, lab test result(s), radiologic studies, and sb4 as a result, I will discharge patient. 10 16:36 Order name: CBC with Diff; Complete Time: 18:20 sb4 02/22 16:36 Order name: BMP; Complete Time: 18:31 sb4 02/22 16:36 Order name: Magnesium; Complete Time: 18:31 sb4 02/22 16:36 Order name: UA Rfx Anthony Cult if indicated; Complete Time: 20:00 sb4 02/22 20:02 Order name: Urine Culture EDMS 02/22 16:36 Order name: US OB Limited; Complete Time: 17:14 sb4 02/22 16:36 Order name: IV Start; Complete Time: 18:04 sb4 02/22 18:31 Order name: PO challenge; Complete Time: 19:35 sb4 Administered Medications: 18:07 Drug: NS 0.9% IV 2000 ml IV at 1 bolus Per protocol; to be given as a bolus over 60 bp minutes Route: IV; Rate: 1 bolus; Site: left antecubital; 20:26 Follow up: Response: No adverse reaction; IV Status: Infusion continued kb4 18:07 Drug: metoCLOPramide IVP 10 mg IVP once; over 1 to 2 minutes Route: IVP; Site: left bp antecubital; 20:26 Follow up: Response: No adverse reaction kb4 19:35 Drug: Famotidine IVP 20 mg IVP once; dilute with 10 mL 0.9% NaCl; give over 2 minutes kb4 Route: IVP; Site: left antecubital; 20:26 Follow up: Response: No adverse reaction kb4 Disposition Summary: 02/22/25 20:05 Discharge Ordered Notes: Location: Home sb4 Problem: new sb4 Symptoms: have improved sb4 Condition: Stable sb4 Diagnosis - Hyperemesis gravidarum sb4 - 13 weeks gestation of sb4 Followup: sb4 - With: Private Physician - When: As needed - Reason: Recheck today's complaints, Re-evaluation by your physician Discharge Instructions: - Discharge Summary Sheet sb4 - Hyperemesis Gravidarum sb4 - Second Trimester of , Jius-is-Iozh sb4 Forms: - Patient Portal Instructions sb4 - Leadership Thank You Letter sb4 Signatures: Dispatcher [employer] EDSajan Espinosa, RN RN Kendra Ho PA-C PA-C sb4 Suzy Suresh RN RN me1 Caryn Sanchez RN RN kb4 Corrections: (The following items were deleted from the chart) 16:36 16:36 CBC+H.LAB.BRZ ordered. EDMS EDMS 16:36 16:36 BASIC METABOLIC PANEL+C.LAB.BRZ ordered. EDMS EDMS 16:36 16:36 MAGNESIUM+C.LAB.BRZ ordered. EDMS EDMS 16:36 16:36 UA Rfx Anthony Cult if indicated+U.LAB.BRZ ordered. EDMS EDMS 16:36 16:36 OB Limited+US.RAD.BRZ ordered. EDMS EDMS
--- NOTE | 2025-02-22 20:05 | ER ---
Nurse's Notes [facility] Name: Penelope Slater Age: 29 yrs Sex: Female : 1995 Arrival Date: 02/22/2025 Time: 16:28 Bed 8 Private MD: Diagnosis: Hyperemesis gravidarum;13 weeks gestation of Presentation: 02/22 16:33 Chief complaint: Patient states: 14 weeks , has had morning sickness this whole me1 but just hasnt been able to keep anything down since Friday. Coronavirus screen: At this time, the client does not indicate any symptoms associated with coronavirus-19. Ebola Screen: No symptoms or risks identified at this time. Initial Sepsis Screen: Does the patient meet any 2 criteria? No. Patient's initial sepsis screen is negative. Does the patient have a suspected source of infection? No. Patient's initial sepsis screen is negative. Risk Assessment: Do you want to hurt yourself or someone else? Patient reports no desire to harm self or others. Onset of symptoms is unknown. 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 - Infectious Disease History:: Denies. - Social history:: Smoking status: Patient denies any tobacco usage or history of. Screenin:27 [facility] ED Fall Risk Assessment (Adult) History of falling in the last 3 months, kb4 including since admission No falls in past 3 months (0 pts) Confusion or Disorientation No (0 pts) Intoxicated or Sedated No (0 pts) Impaired Gait No (0 pts) Mobility Assist Device Used No (0 pt) Altered Elimination No (0 pt) Score/Fall Risk Level 0 - 2 = Low Risk. Abuse screen: Denies threats or abuse. Denies injuries from another. Nutritional screening: No deficits noted. Tuberculosis screening: No symptoms or risk factors identified. Assessment: 20:00 Reassessment: Patient appears in no apparent distress at this time. Patient and/or kb4 family updated on plan of care and expected duration. Pain level reassessed. Patient is alert, oriented x 3, equal unlabored respirations, skin warm/dry/pink. General: Appears in no apparent distress. comfortable, Behavior is calm, cooperative. Pain: Denies pain. Vital Signs: 16:33 BP 121 / 73; Pulse 79; Resp 18; Temp 98.1; Pulse Ox 100% ; Weight 124.74 kg; Height 5 me1 ft. 7 in. ; 20:26 BP 129 / 88; Pulse 76; Resp 18; Temp 97.6; Pulse Ox 100% on R/A; kb4 16:33 Body Mass Index 43.07 (124.74 kg, 170.18 cm) me1 ED Course: 16:30 Patient arrived in ED. mr 16:31 Kendra Caldera PA-C is PHCP. sb4 16:31 Jennifer Prince MD is Attending Physician. sb4 16:36 Triage completed. me1 16:36 Arm band placed on Patient placed in waiting room. me1 17:04 US OB Limited In Process Unspecified. EDMS 17:57 Sajan Pineda, RN is Primary Nurse. bp 18:03 Initial lab(s) drawn, by me, sent to lab. Inserted saline lock: 20 gauge in left rk3 antecubital area, using aseptic technique. Blood collected. Flushed with 10 mL NS. 20:27 Patient has correct armband on for positive identification. Provided Education on: d/c kb4 instructions . 20:27 No provider procedures requiring assistance completed. IV discontinued, intact, kb4 bleeding controlled, No redness/swelling at site. Pressure dressing applied. Administered Medications: 18:07 Drug: NS 0.9% IV 2000 ml IV at 1 bolus Per protocol; to be given as a bolus over 60 bp minutes Route: IV; Rate: 1 bolus; Site: left antecubital; 20:26 Follow up: Response: No adverse reaction; IV Status: Infusion continued kb4 18:07 Drug: metoCLOPramide IVP 10 mg IVP once; over 1 to 2 minutes Route: IVP; Site: left bp antecubital; 20:26 Follow up: Response: No adverse reaction kb4 19:35 Drug: Famotidine IVP 20 mg IVP once; dilute with 10 mL 0.9% NaCl; give over 2 minutes kb4 Route: IVP; Site: left antecubital; 20:26 Follow up: Response: No adverse reaction kb4 Medication: 20:28 VIS not applicable for this client. kb4 Outcome: 20:05 Discharge ordered by . sb4 20:27 Discharged to home ambulatory, kb4 20:27 Condition: good 20:27 Discharge instructions given to patient, Instructed on discharge instructions, follow up and referral plans. Demonstrated understanding of instructions, follow-up care, 20:28 Patient left the ED. kb4 Signatures: Dispatcher [employer] EDMS Radha Stahl, Sajan Marie, RN RN Kendra Ho, PA-C PA-C sb4 Suzy Suresh RN RN me1 Caryn Sanchez RN RN kb4 Rubina Love rk3
[2025-02-22 20:53] VITALS: O2SAT 100
[2025-02-22 20:54] VITALS: BP 129/88; TEMP 97.6
== END 2025-02-22 20:28 | disposition home or self-care (01) ==
LOC: ER 16:28
DX: O21.0 Mild hyperemesis gravidarum (principal); Z3A.13 13 weeks gestation of pregnancy
CPT/HCPCS: 96361; 87088; 85025; 81001; 87086; 80048; 36415; 83735; 76815; 96375; 96374; 99284; J2765; J7030

== ENCOUNTER 2025-02-28 10:32 | Emergency (ER) | payer OTHER ==
--- OUTSIDE RECORDS SUMMARY | 2025-02-28 11:00 | XMS REPORT | Continuity of Care Document ---
Author Name Unknown Address [address] [facility]. [address] [place] [address] Organization [facility] [place] Address [address] [facility] [address] [place] [address] Care Team Providers Care Licensed Insurance Agent Name Role Phone Florencia Chang MD Primary Care Physician [phone] BRENNEN WAGNER Attending Clinician Unavailable MARJORIE BENÍTEZ Attending Clinician Unavailable Criss Briggs Attending Clinician [phone] Jeyson Marjorie ARMSTRONG Attending Clinician [phone] BÁRBARA TAYLOR Attending Clinician BÁRBARA Silver Attending Clinician JELLY Perez Attending Clinician Unavailable Criss Briggs Attending Clinician [phone] Brennen Wagner MD Attending Clinician [phone] Lab, Ang - Db Attending Clinician Unavailable CRISS LEYVA Attending Clinician Unavailable Po, [facility] Lab Main Attending Clinician Unavailabl e Doctor Unassigned, [place] Attending Clinician U navailable MANDA ATKINSON Attending Clinician Unavaila MANDA Kapoor Attending Clinician UnavailLANG Diop Attending Clinician Unavail LANG Caicedo Attending Clinician Unavail Lang Caicedo MD Attending Clinician [facility] Eeg Attending Clinician Unavailable Mandy aRmirez Attending Clinician [phone] , [facility] Sleep Lab Bed Attending Clinician Unavail Manda Kinsey MD Attending Clinician MANDY WAGNER Attending Clinician Unavailable Pcp-Lab Attending Clinician Unavailable Jelly Waters PA-C Attending Clinician [phone] JELLY WATERS Attending Clinician Unavailable ELIZA MEJIA Attending Clinician Unavailable Surface Moraima Conner Attending Clinician [phone], [employer] Attending Clinician Joceline Zuleyma Saba PhD Attending Clinician + [phone] ZULEYMA RIVAS Attending Clinician Unavailab SYDNI Abbott Attending Clinician Unavailable Ozzie Juárez Attending Clinician [phone], [facility] Attending Clinician Unavailable BRENNEN WAGNER Admitting Clinician Unavailable Bárbara Taylor MD Admitting Clinician + [phone] LANG JACKSON Admitting Clinician Unavail able Payers Payer Name Policy Type Policy Number Effective Date Expirati on Date Source [facility] [id number] 2022 00:00:00 Problems Condition Name Condition Details [...] wrist pain Disease Active 2022-05- 00:00: 00 [facility] Dysplasia [...] 40.0-49.9 Disease Active 2022-05 0-30 00:00: 00 [facility] ASCUS with 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 Disease Active 2022-05 030 00:00: 00 [facility] Atypical squamous cell changes of undetermin ed significan ce (ASCUS) on vaginal cytology Atypical squamous cell changes of undetermin ed significan ce (ASCUS) on vaginal cytology Disease Active 7 00:00: 00 [facility] History of HPV infection History of HPV infection Disease Active 0 7 00:00: 00 [facility] Right hip pain Right hip pain Disease Active 0 10-07 00:00: 00 [facility] Right hip pain Right hip pain Disease Active 10-07 00:00: 00 [facility] Snoring Snoring Disease Active 5 00:00: 00 [facility] Chronic midline thoracic back pain Chronic midline thoracic back pain Disease Active 5- 00:00: 00 [facility] Lumbar pain Lumbar pain Disease Active 0 519 00:00: 00 [facility] Herpes zoster without complicati on Herpes zoster without complicati on Disease Active 2- 00:00: 00 [facility] Pulsatile tinnitus of right ear Pulsatile tinnitus of right ear Disease Active 2-13 00:00: 00 [facility] BMI 45.0-49.9, adult BMI 45.0-49.9, adult Disease Active 2-06 00:00: 00 [facility] Anxiety and depression Anxiety and depression Disease Active 2-06 00:00: 00 [facility] Graves disease Graves disease Disease Active 7 00:00: 00 [facility] Acute cough Acute cough Disease Resolve d 8- 00:00: 00 2023-03-17 00:00:00 2023-03-17 15:14:05 [facility] Bartholin' s cyst Bartholin' s cyst Disease Resolve d 8-29 00:00: 00 2023-03-17 00:00:00 2023-03-17 15:14:32 [facility] Acute cough Acute cough Disease Resolve d 2022-0 8-29 00:00: 00 2023-03-17 00:00:00 2023-03-17 15:14:05 [facility] Nasal congestion Nasal congestion Disease Resolve d 2022-0 8-29 00:00: 00 2023-03-17 00:00:00 2023-03-17 15:14:08 [facility] Cellulitis of other specified site Cellulitis of other specified site Disease Resolve d 2022-0 8-29 00:00: 00 2023-03-17 00:00:00 2023-03-17 15:14:04 [facility] Viral upper respirator y tract [...] 00:00: 00 2023-03-17 00:00:00 2023-03-17 15:13:58 [facility] Muscle twitching Muscle twitching Disease Resolve d 2022-0 2-13 00:00: 00 2023-03-17 00:00:00 2023-03-17 15:13:53 [facility] Encounter to establish [...] Quantity Comments Source History SDOH Food Worry [facility] Gender identity [facility] Alcoholic beverage intake 2023-12-31 00:00:00 2023-12-31 00:00:00 Ex-drinker (finding) [facility] History of Social function 2023-11-06 00:00:00 2023-11-06 00:00:00 [facility] Alcohol intake 2023-04-29 00:00:00 2023-04-29 00:00:00 Ex-drinker (finding) [facility] Tobacco use and exposure 2023-03-31 00:00:00 2023-03-31 00:00:00 User of smokeless tobacco [facility] Tobacco Comment 2023-03-31 00:00:00 2023-03-31 00:00:00 Smoke weed daily [facility] Exposure to SARS-CoV-2 (event) 2022-11-09 00:00:00 2022-11-19 20:17:00 Not sure [facility] History SDOH Alcohol Frequency 2022-10-07 00:00:00 2022-10-07 00:00:00 1 [facility] History SDOH Alcohol Std Drinks 2022-10-07 00:00:00 2022-10-07 00:00:00 0 [facility] History SDOH Alcohol Binge 2022-10-07 00:00:00 2022-10-07 00:00:00 1 [facility] History SDOH Financial 2022-10-07 00:00:00 2022-10-07 00:00:00 3 [facility] History SDOH Food Scarcity 2022-10-07 00:00:00 2022-10-07 00:00:00 2 [facility] History SDOH Transport Med 2022-10-07 00:00:00 2022-10-07 00:00:00 2 [facility] History SDOH Transport Non-Med 2022-10-07 00:00:00 2022-10-07 00:00:00 2 [facility] History SDOH Housing Unable to Pay 2022-10-07 00:00:00 2022-10-07 00:00:00 1 [facility] History SDOH Housing Places Lived 2022-10-07 00:00:00 2022-10-07 00:00:00 2 [facility] History SDOH Housing Homeless Last Year 2022-10-07 00:00:00 2022-10-07 00:00:00 2 [facility] Sex assigned at 1995 00:00:00 1995 00:00:00 [facility] Smoking Status Start Date Stop Date [...] 1mg Richard Arcos sertraline 50 mg tablet 8- 00:00: 00 Yes 1mg Richard Arcos sertraline 25 mg tablet 8-06 00:00: 00 Yes 1mg Richard Arcos Effexor XR 37.5 mg capsule,ext ended release 0 8-06 00:00: 00 Yes 1mg Richard Arcos buspirone 10 mg tablet 0 7- 00:00: 00 Yes 1mg Richard Arcos trazodone 100 mg tablet 0 7- 00:00: 00 Yes 1mg Richard Arcos Effexor XR 75 mg capsule,ext ended release 0 7- 00:00: 00 Yes 1mg Richard Arcos Effexor XR 37.5 mg capsule,ext ended release 0 7-22 00:00: 00 Yes 1mg Richard rAcos pantoprazol e 40 mg tablet,juan yed release 0 7-11 00:00: 00 Yes 1mg Richard Arcos dicyclomine 20 mg tablet 0 6-04 00:00: 00 Yes 1mg Richard Arcos famotidine 20 mg tablet 2024-0 6-04 00:00: 00 Yes 1mg Richard Arcos ondansetron 8 mg disintegrat ing tablet 2024-0 6-04 00:00: 00 Yes 1mg Richard Arcos buspirone 10 mg tablet 2024-0 5- 00:00: 00 Yes 1mg Richard Arcos trazodone 100 mg tablet 2024-0 5- 00:00: 00 Yes 1mg Richard Arcos Effexor XR 75 mg capsule,ext ended release 2024-0 5- 00:00: [...] XR 37.5 mg capsule,ext ended release 2024-0 2- 00:00: 00 Yes 1mg Richard Arcos buspirone 10 mg tablet 2023-05 2-20 00:00: 00 Yes 1mg Richard Arcos trazodone 100 mg tablet 2023-05 2-20 00:00: 00 Yes 1mg Richard Arcos Effexor XR 75 mg capsule,ext ended release 2023-05 2- 00:00: 00 Yes 1mg Richard Arcos Effexor XR 37.5 mg capsule,ext ended release 2023-05 2- 00:00: 00 Yes 1mg Richard Arcos hydroxyzine pamoate 25 mg capsule 2023-05 2- 00:00: 00 Yes 1mg Richard Arcos buspirone [...] 2024-0 6-06 00:00: 00 Yes 1mg Richard Lorena Isrrael Effexor XR 37.5 mg capsule,ext ended release 2024-0 6-06 00:00: 00 Yes 1mg Richard Lorena Isrrael Effexor XR 75 mg capsule,ext ended [...] 19 00:00: 00 11-05 00:00 :00 No [id number] 9100 15mg TAKE 1 TABLET BY MOUTH [...] 2022-05 00:00: 00 11-05 00:00 :00 No [id number] 2.5mg inject 2.5 mg under the skin weekly. [facility] tirzepatide (MOUNJARO) 5 mg/0.5 mL PnIj 2022-05 00:00: 00 11-05 00:00 :00 No [id number] 5mg inject 5 mg under the skin [...] 2- 00:00: 00 11-05 00:00 :00 No [id number] 2.5mg inject 2.5 mg under the skin weekly. [facility] TAKE 1 TABLET BY MOUTH ONCE DAILY NEEDED FOR PAIN (WRIST PAIN). 2022-05 00:00: 00 Yes Richard Arcos meloxicam 15 mg tablet 2022-05 00:00: 00 07-07 00:00 :00 No [id number] 9100 15mg Take 1 tablet by mouth [...] at 1030, Until Discontinu ed, Routine, PACU [facility] HYDROcodone -acetaminop hen (NORCO) 10-325 mg tablet 1 tablet 2022-05 16:22: 30 Yes 1{tbl} 1 tablet, Oral, PRN, 1 dose, Starting on Fri04/07/23 at 1022, Until Discontinu ed, Routine, Pain (scale 7-10), DSU Recovery [facility] HYDROcodone -acetaminop hen (NORCO 5) 5-325 mg tablet 1 tablet 2022-05 16:22: 30 Yes 1{tbl} 1 tablet, Oral, PRN, 1 dose, Starting on Fri04/07/23 at 1022, Until Discontinu ed, Routine, Pain (scale 4-6), DSU Recovery [facility] ibuprofen (IBU) tablet 800 mg 2022-05 16:22: [...] Discontinu ed, Routine, Pain (scale 4-6), PACU [facility] HYDROmorphO ne (DILAUDID) injection 0.2 mg 2022-05 [...] 1026, Routine, Nausea and Vomiting (N/V), PACU [facility] ferric subsulfate (MONSEL'S) solution 2022-05 [...] at 0928, Until Fri04/07/23 at 1001, Intra-op [facility] lactated ringers IV infusion 1,000 [...] 01-14 00:00: 00 01-22 04:59 :00 No [id number] 1{tbl} Take 1 tablet by mouth in the morning and 1 tablet in the evening. Do all this for 7 days. [facility] TIZANIDINE HCL 2 MG TABS 01-07 00:00: 00 Yes Richard Arcos tiZANidine 2 mg capsule 01-07 00:00: 00 11-05 00:00 :00 No [id number] 2mg Take 1 capsule by mouth in the morning and 1 capsule at noon and 1 capsule in the evening. [facility] TAKE 1 CAPSULE ONCE DAILY WITH FOOD. 12-18 00:00: 09-24 00:00 :00 No 75 Richard Arcos TAKE 1 CAPSULE TWICE DAILY. 12-18 00:00: 00 09-24 00:00 :00 No 25 Richard Arcos TAKE 1 TABLET BY MOUTH ONCE DAILY 12-18 00:00: 00 09-24 00:00 :00 No 375 Richard Arcos TAKE 1 CAPSULE BY MOUTH TWICE DAILY 11-18 00:00: 00 Yes Richard Arcos VENLAFAXINE HYDROCHLORI DE ER 37.5 MG CP24 11-18 00:00: 00 Yes Richadr Arcos TAKE 1 CAPSULE TWICE DAILY. 11-18 [...] 10-04 00:00: 00 01-07 00:00 :00 No [id number] 25mg Take 1 tablet by mouth in [...] IUD 4-26 10:57: 03 Yes as directed [facility] [...] 00:00: 00 09-24 00:00 :00 No 10 Irchardjose m Arcos TAKE 1 CAPSULE ONCE DAILY WITH FOOD. 20 00:00: 00 09-24 00:00 :00 No 75 Richard Lorena Arcos TAKE 1 CAPSULE ONCE DAILY WITH FOOD. -06 00:00: 00 09-24 00:00 :00 No 75 [...] 07-01 00:00: 00 10-04 00:00 :00 No [id number] 100mg Take 1 capsule by mouth in the morning and 1 capsule at noon and 1 capsule in the evening. [facility] valACYclovi r 1 gram tablet 07-01 00:00: 00 07-09 05:59 :00 No [id number] 1g Take 1 tablet by mouth in [...] [facility] bus[facility]IRone 5 mg tablet - 00:00: 00 10-04 00:00 :00 No 5mg [...] 11-13 00:00: 00 06-24 00:00 :00 No [id number] 50ug Take 1 tablet by mouth every morning. [facility] Blood Pressure Monitor (BLOOD PRESSURE KIT) Kit 08-21 00:00: 00 Yes [id number] Use as directed [facility] Blood Pressure Monitor (BLOOD PRESSURE KIT) Kit 08-21 00:00: 00 04-01 00:00 :00 No [id number] Use as directed [facility] Vital Signs Vital Name Observation Time Observation Value Comments Bernard padilla Systolic blood pressure 2023-12-31 15:28:00 110 mm[Hg] [facility] Diastolic blood pressure 2023-12-31 15:28:00 68 mm[Hg] [facility] Heart rate 2023-12-31 15:28:00 84 /min [facility] Body temperature 2023-12-31 15:28:00 36.56 Elena [facility] Respiratory rate 2023-12-31 15:28:00 17 /min [facility] Body height 2023-12-31 15:28:00 170.2 cm [facility] Body weight 2023-12-31 15:28:00 133.675 kg [facility] BMI 2023-12-31 15:28:00 46.16 kg/m2 [facility] Systolic blood pressure 2023-11-06 12:45:00 109 mm[Hg] [facility] Diastolic blood pressure 2023-11-06 12:45:00 63 mm[Hg] [facility] Heart rate 2023-11-06 12:45:00 84 /min [facility] Body temperature 2023-11-06 12:45:00 36.17 Elena [facility] Respiratory rate 2023-11-06 12:45:00 18 /min [facility] Body height 2023-11-06 12:45:00 170.2 cm [facility] Body weight 2023-11-06 12:45:00 132.178 kg [facility] BMI 2023-11-06 12:45:00 45.64 kg/m2 [facility] Systolic blood pressure 2023-05-06 16:15:00 101 mm[Hg] [facility] Diastolic blood pressure 2023-05-06 16:15:00 69 mm[Hg] [facility] Heart rate 2023-05-06 16:15:00 73 /min Un[facility] Body temperature 2023-05-06 16:15:00 36.28 Elena [facility] Body height 2023-05-06 16:15:00 170.2 cm [facility] Body weight 2023-05-06 16:15:00 130.046 kg [facility] BMI 2023-05-06 16:15:00 44.90 kg/m2 [facility] Systolic blood pressure 2023-04-29 16:47:00 110 mm[Hg] [facility] Diastolic blood pressure 2023-04-29 16:47:00 61 mm[Hg] [facility] Heart rate 2023-04-29 16:47:00 76 /min [facility] Respiratory rate 2023-04-29 16:47:00 18 /min [facility] Body height 2023-04-29 16:47:00 170.2 cm [facility] Body weight 2023-04-29 16:47:00 127.914 kg [facility] BMI 2023-04-29 16:47:00 44.17 kg/m2 [facility] Systolic blood pressure 2023-04-23 19:51:00 117 mm[Hg] [facility] Diastolic blood pressure 2023-04-23 19:51:00 79 mm[Hg] [facility] Heart rate 2023-04-23 19:51:00 81 /min [facility] Body height 2023-04-23 19:51:00 170.2 cm [facility] Body weight 2023-04-23 19:51:00 127.506 kg [facility] BMI 2023-04-23 19:51:00 44.03 kg/m2 [facility] Oxygen saturation in Arterial blood by Pulse oximetry 2023-04-23 19:51:00 99 /min [facility] Heart rate 2023-04-07 16:54:00 71 /min [facility] Oxygen saturation in Arterial blood by Pulse oximetry 2023-04-07 16:54:00 92 /min [facility] Systolic blood pressure 2023-04-07 16:53:00 115 mm[Hg] [facility] Diastolic blood pressure 2023-04-07 16:53:00 91 mm[Hg] [facility] Respiratory rate 2023-04-07 16:53:00 17 /min [facility] Body temperature 2023-04-07 16:03:00 36.44 Elena [facility] Body height 2023-03-31 20:00:00 170.2 cm [facility] Body weight 2023-03-31 20:00:00 128.822 kg [facility] BMI 2023-03-31 20:00:00 44.48 kg/m2 [facility] Systolic blood pressure 2023-04-07 13:48:00 110 mm[Hg] [facility] Diastolic blood pressure 2023-04-07 13:48:00 75 mm[Hg] [facility] Heart rate 2023-04-07 13:48:00 75 /min [facility] Body temperature 2023-04-07 13:48:00 36.67 Elena [facility] Respiratory rate 2023-04-07 13:48:00 17 /min [facility] Oxygen saturation in Arterial blood by Pulse oximetry 2023-04-07 13:48:00 100 /min [facility] Body height 2023-03-31 20:00:00 170.2 cm [facility] Body weight 2023-03-31 20:00:00 128.822 kg [facility] BMI 2023-03-31 20:00:00 44.48 kg/m2 [facility] Systolic blood pressure 2023-04-01 17:04:00 128 mm[Hg] [facility] Diastolic blood pressure 2023-04-01 17:04:00 83 mm[Hg] [facility] Heart rate 2023-04-01 17:04:00 65 /min [facility] Body temperature 2023-04-01 17:04:00 36.61 Elena [facility] Respiratory rate 2023-04-01 17:04:00 16 /min [facility] Body height 2023-04-01 17:04:00 170.2 cm [facility] Body weight 2023-04-01 17:04:00 129.23 kg [facility] BMI 2023-04-01 17:04:00 44.62 kg/m2 [facility] Oxygen saturation in Arterial blood by Pulse oximetry 2023-04-01 17:04:00 97 /min [facility] Systolic blood pressure 2023-03-20 14:56:00 133 mm[Hg] [facility] Diastolic blood pressure 2023-03-20 14:56:00 59 mm[Hg] [facility] Heart rate 2023-03-20 14:56:00 64 /min [facility] Body temperature 2023-03-20 14:56:00 36.72 Elena [facility] Respiratory rate 2023-03-20 14:56:00 16 /min [facility] Body height 2023-03-20 14:56:00 170.2 cm [facility] Body weight 2023-03-20 14:56:00 129.91 kg [facility] BMI 2023-03-20 14:56:00 44.86 kg/m2 [facility] Oxygen saturation in Arterial blood by Pulse oximetry 2023-03-20 14:56:00 97 /min [facility] Systolic blood pressure 2023-03-17 19:52:00 128 mm[Hg] [facility] Diastolic blood pressure 2023-03-17 19:52:00 63 mm[Hg] [facility] Heart rate 2023-03-17 19:52:00 78 /min [facility] Body temperature 2023-03-17 19:52:00 36.39 Elena [facility] Respiratory rate 2023-03-17 19:52:00 17 /min [facility] Body height 2023-03-17 19:52:00 170.2 cm [facility] Body weight 2023-03-17 19:52:00 129.275 kg [facility] BMI 2023-03-17 19:52:00 44.64 kg/m2 [facility] Systolic blood pressure 2023-02-10 15:47:00 113 mm[Hg] [facility] Diastolic blood pressure 2023-02-10 15:47:00 78 mm[Hg] [facility] Heart rate 2023-02-10 15:47:00 66 /min [facility] Respiratory rate 2023-02-10 15:47:00 18 /min [facility] Body height 2023-02-10 15:47:00 170.2 cm [facility] Body weight 2023-02-10 15:47:00 128.277 kg [facility] BMI 2023-02-10 15:47:00 44.29 kg/m2 [facility] Oxygen saturation in Arterial blood by Pulse oximetry 2023-02-10 15:47:00 99 /min [facility] Systolic blood pressure 2023-01-14 14:57:00 107 mm[Hg] [facility] Diastolic blood pressure 2023-01-14 14:57:00 73 mm[Hg] [facility] Heart rate 2023-01-14 14:57:00 98 /min [facility] Body height 2023-01-14 14:57:00 170.2 cm [facility] Body weight 2023-01-14 14:57:00 127.461 kg [facility] BMI 2023-01-14 14:57:00 44.01 kg/m2 [facility] Oxygen saturation in Arterial blood by Pulse oximetry 2023-01-14 14:57:00 100 /min [facility] Systolic blood pressure 2023-01-07 16:25:00 117 mm[Hg] [facility] Diastolic blood pressure 2023-01-07 16:25:00 71 mm[Hg] [facility] Heart rate 2023-01-07 16:25:00 65 /min [facility] Body height 2023-01-07 16:25:00 170.2 cm [facility] Body weight 2023-01-07 16:25:00 127.007 kg [facility] BMI 2023-01-07 16:25:00 43.85 kg/m2 [facility] Oxygen saturation in Arterial blood by Pulse oximetry 2023-01-07 16:25:00 98 /min [facility] Systolic blood pressure 2022-12-16 18:26:00 106 mm[Hg] [facility] Diastolic blood pressure 2022-12-16 18:26:00 74 mm[Hg] [facility] Heart rate 2022-12-16 18:26:00 75 /min [facility] Body height 2022-12-16 18:26:00 170.2 cm [facility] Body weight 2022-12-16 18:26:00 128.368 kg [facility] BMI 2022-12-16 18:26:00 44.32 kg/m2 [facility] Oxygen saturation in Arterial blood by Pulse oximetry 2022-12-16 18:26:00 98 /min [facility] Systolic blood pressure 2022-11-20 16:50:00 122 mm[Hg] [facility] Diastolic blood pressure 2022-11-20 16:50:00 86 mm[Hg] [facility] Heart rate 2022-11-20 16:49:00 81 /min [facility] Body height 2022-11-20 16:49:00 170.2 cm [facility] Body weight 2022-11-20 16:49:00 130.182 kg [facility] BMI 2022-11-20 16:49:00 44.95 kg/m2 [facility] Oxygen saturation in Arterial blood by Pulse oximetry 2022-11-20 16:49:00 98 /min [facility] Systolic blood pressure 2022-10-30 16:30:00 103 mm[Hg] [facility] Diastolic blood pressure 2022-10-30 16:30:00 71 mm[Hg] [facility] Heart rate 2022-10-30 16:20:00 72 /min [facility] Body temperature 2022-10-30 16:20:00 36.67 Elena [facility] Respiratory rate 2022-10-30 16:20:00 18 /min [facility] Body height 2022-10-30 16:20:00 170.2 cm [facility] Body weight 2022-10-30 16:20:00 130.999 kg [facility] BMI 2022-10-30 16:20:00 45.23 kg/m2 [facility] Oxygen saturation in Arterial blood by Pulse oximetry 2022-10-30 16:20:00 97 /min [facility] Systolic blood pressure 2022-10-16 13:14:00 100 mm[Hg] [facility] Diastolic blood pressure 2022-10-16 13:14:00 70 mm[Hg] [facility] Heart rate 2022-10-16 13:14:00 75 /min [facility] Body temperature 2022-10-16 13:14:00 36.78 Elena [facility] Body height 2022-10-16 13:14:00 170.2 cm [facility] Body weight 2022-10-16 13:14:00 133.358 kg [facility] BMI 2022-10-16 13:14:00 46.05 kg/m2 [facility] Oxygen saturation in Arterial blood by Pulse oximetry 2022-10-16 13:14:00 99 /min [facility] Systolic blood pressure 2022-10-07 16:29:00 103 mm[Hg] [facility] Diastolic blood pressure 2022-10-07 16:29:00 81 mm[Hg] [facility] Heart rate 2022-10-07 16:29:00 70 /min [facility] Body temperature 2022-10-07 16:29:00 36.83 Elena [facility] Respiratory rate 2022-10-07 16:29:00 20 /min [facility] Body height 2022-10-07 16:29:00 173.7 cm [facility] Body weight 2022-10-07 16:29:00 134.401 kg [facility] BMI 2022-10-07 16:29:00 44.53 kg/m2 [facility] Oxygen saturation in Arterial blood by Pulse oximetry 2022-10-07 16:29:00 100 /min [facility] Systolic blood pressure 2022-10-04 18:57:00 98 mm[Hg] [facility] Diastolic blood pressure 2022-10-04 18:57:00 78 mm[Hg] [facility] Heart rate 2022-10-04 18:56:00 77 /min [facility] Body temperature 2022-10-04 18:56:00 37 Elena [facility] Body height 2022-10-04 18:56:00 170.2 cm [facility] Body weight 2022-10-04 18:56:00 133.811 kg [facility] BMI 2022-10-04 18:56:00 46.20 kg/m2 [facility] Systolic blood pressure 2022-09-11 15:46:00 112 mm[Hg] [place] [facility] Diastolic blood pressure 2022-09-11 15:46:00 79 mm[Hg] [facility] Heart rate 2022-09-11 15:46:00 65 /min Unive [facility] Body temperature 2022-09-11 15:46:00 36.17 Elena [facility] Respiratory rate 2022-09-11 15:46:00 18 /min [facility] Body height 2022-09-11 15:46:00 170.2 cm [facility] Body weight 2022-09-11 15:46:00 134.265 kg [facility] BMI 2022-09-11 15:46:00 46.36 kg/m2 [facility] Oxygen saturation in Arterial blood by Pulse oximetry 2022-09-11 15:46:00 98 /min r/a [facility] Systolic blood pressure 2022-07-01 21:35:00 107 mm[Hg] [facility] Diastolic blood pressure 2022-07-01 21:35:00 60 mm[Hg] [facility] Heart rate 2022-07-01 21:35:00 81 /min [facility] Body temperature 2022-07-01 21:35:00 37.33 Elena [facility] Body height 2022-07-01 21:35:00 170.2 cm [facility] Body weight 2022-07-01 21:35:00 136.079 kg [facility] BMI 2022-07-01 21:35:00 46.99 kg/m2 [facility] Oxygen saturation in Arterial blood by Pulse oximetry 2022-07-01 21:35:00 98 /min [facility] Body height 2022-06-24 21:13:00 170.2 cm [facility] Body weight 2022-06-24 21:13:00 136.533 kg [facility] BMI 2022-06-24 21:13:00 47.14 kg/m2 [facility] Oxygen saturation in Arterial blood by Pulse oximetry 2022-06-24 21:13:00 99 /min [place] [facility] Systolic blood pressure 2022-06-24 21:13:00 97 mm[Hg] [facility] Diastolic blood pressure 2022-06-24 21:13:00 64 mm[Hg] [facility] Heart rate 2022-06-24 21:13:00 73 /min [facility] Body temperature 2022-06-24 21:13:00 36.83 Elena [facility] BP Systolic 2025-01-27 11:26:00 124 mm[Hg] Step hen F Isrrael BP Diastolic 2025-01-27 11:26:00 83 mm[Hg] Dennys phen F Isrrael Weight Measured 2025-01-27 11:26:00 280.20 pounds Richard F Isrrael Height Measured 2025-01-27 11:26:00 67.50 inches Richard [...] 2025-01-20 15:06:00 98.00 /min Francisca en F Isrrale Respiratory Rate 2025-01-20 15:06:00 18.00 /min Richard [...] 2024-12-28 10:07:00 107 mm[Hg] Step hen F Sirrael BP Diastolic 2024-12-28 10:07:00 76 mm[Hg] Dennys [...] Source CERVICAL CONIZATION 2023-04-07 14:54:00 Bárbara Hernandez [facility] DSU PRE-OP 2023-04-01 06:01:00 Doctor Unass igned, [place] [facility] INSURANCE CORRESPONDENCE 2023-03-27 06:01:00 Doc tor Unassigned, [place] [facility] INSURANCE CORRESPONDENCE 2023-03-27 06:01:00 Doc tor Unassigned, [place] [facility] DISCLOSURE AND CONSENT MEDICAL & SURGICAL PROCEDURES - FEMALM 2023-03-17 05:01:00 Doctor Unassigned, [place] [facility] POCT TEST 2023-03-17 00:00:00 Bárbara Hernandez [facility] DISABILITY/FMLA 2023-01-21 05:01:00 Doctor Unass igned, [place] [facility] XR FOOT 3+ VW RIGHT 2023-01-07 18:06:01 Criss Leyva [facility] POCT TEST 2023-01-07 17:03:00 Criss Leyva [facility] SLEEP STUDY DATA REPORT 2022-11-14 05:01:00 Doct or Unassigned, [place] [facility] LAB ONLY PAP SMEAR-LIQUID BASED 2022-10-16 14:06:00 Criss Leyva [facility] GALV ONLY - VAGINAL PATHOGENS BY NUCLEIC ACID TESTING 2022-10-16 14:06:00 Criss Leyva [facility] PAP SMEAR-LIQUID BASED-CP 2022-10-16 14:06:00 Preet Leyva [facility] POCT TEST 2022-10-04 20:08:00 Criss Leyva [facility] VITAMIN B12, LEVEL 2022-09-11 16:30:00 Jelly Waters [facility] FREE T4 2022-09-11 16:30:00 [facility] THYROID STIMULATING HORMONE 2022-09-11 16:30:00 Jelly Waters [facility] URINALYSIS 2022-09-11 16:30:00 Jelly Waters [facility] ANTI-SSB(LA) 2022-09-11 16:30:00 Jelly Waters [facility] ANTI-DOUBLE STRANDED DNA 2022-09-11 16:30:00 Alejandro Waters [facility] C-REACTIVE PROTEIN 2022-07-01 22:27:00 Criss Leyva Un [facility] SEDIMENTATION RATE 2022-07-01 22:27:00 Criss Leyva Un [facility] VITAMIN D, 25-OH 2022-07-01 22:27:00 Criss Leyva [facility] CONSENT/REFUSAL FOR DIAGNOSIS AND TREATMENT 2022-06-24 20:59:39 Doctor Unassigned, [place] [facility] ASSIGNMENT OF BENEFITS 2022-06-24 20:59:23 Docto r Unassigned, [place] [facility] FREE T4 2018-12-22 22:15:00 Jeannie Mendieta [facility] THYROID STIMULATING HORMONE 2018-12-22 22:15:00 Jeannie Mendieta [facility] ASSIGNMENT OF BENEFITS 2018-12-22 21:51:15 Dochunter benz Unassigned, [place] [facility] Encounters Start Date/Time End Date/Time Encounter Type Admission Type Attending [facility] Care Facility Care Department Encounter ID Source 2023-05-06 12:35:02 Outpatient R BRENNEN WAGNER [facility] [id number] [facility] 2025-02-10 10:38:45 2025-02-10 10:38:45 Outpatient SFA [facility] [id number] Richard Carrillo Isrrael 2025-01-27 10:58:21 2025-01-27 10:58:21 Outpatient SFA [facility] [id number] Richard Carrillo Isrrael 2025-01-27 00:00:00 2025-01-27 00:00:00 Outpatient Visit [facility] [id number] Richard Carrillo Isrrael 2025-01-20 15:01:26 2025-01-20 15:01:26 Outpatient SFA [facility] [id number] Richard Carrillo Isrrael 2025-01-20 00:00:00 2025-01-20 00:00:00 Outpatient Visit [facility] [id number] Richard Carrillo Isrrael 2025-01-11 11:36:35 2025-01-11 11:36:35 Outpatient SFA [facility] [id number] Richard Arcos 2025-01-11 00:00:00 2025-01-11 00:00:00 Outpatient Visit SFA [id number] Richard Arcos 2025-01-05 10:59:15 2025-01-05 10:59:15 Outpatient SFA [facility] [id number] Richard Arcos 2025-01-05 00:00:00 2025-01-05 00:00:00 Outpatient Visit SFA [id number] Richard Arcos 2025-01-05 00:00:00 2025-01-05 00:00:00 Outpatient Visit SFA [id number] Richard Arcos 2024-12-30 10:37:50 2024-12-30 10:37:50 Outpatient SFA S[facility] [id number] Richard Arcos 2024-12-30 00:00:00 2024-12-30 00:00:00 Outpatient Visit SFA [id number] Richard Arcos 2024-12-28 00:00:00 2024-12-28 00:00:00 Outpatient Visit SFA [id number] Richard Arcos 2024-12-27 08:35:54 2024-12-27 08:35:54 Outpatient SFA SFA [id number] Richard Arcos 2024-12-14 11:08:43 2024-12-14 11:08:43 Outpatient SFA SFA [id number] Richard Arcos 2024-12-14 00:00:00 2024-12-14 00:00:00 Outpatient Visit SFA [id number] Richard Arcos 2024-12-07 09:30:40 2024-12-07 09:30:40 Outpatient SFA SFA [id number] Richard Arcos 2024-11-26 00:00:00 2024-11-26 00:00:00 Outpatient Visit SFA [id number] Richard Arcos 2024-09-16 14:50:18 2024-09-16 14:50:18 Outpatient SFA SFA [id number] Richard Arcos 2024-09-16 00:00:00 2024-09-16 00:00:00 Outpatient Visit SFA [id number] Richard Arcos 2024-08-30 15:44:14 2024-08-30 15:44:14 Outpatient SFA SFA [id number] Richard Arcos 2024-08-30 00:00:00 2024-08-30 00:00:00 Outpatient Visit SFA [id number] Richard Arcos 2024-08-19 08:29:39 2024-08-19 08:29:39 Outpatient SFA SFA [id number] Richard Arcos 2024-08-18 15:28:41 2024-08-18 15:28:41 Outpatient SFA SFA [id number] Richard Arcos 2024-08-18 00:00:00 2024-08-18 00:00:00 Outpatient Visit SFA [id number] Richard Arcos 2024-07-19 09:17:44 2024-07-19 09:17:44 Outpatient SFA SFA [id number] Richard Arcos 2024-07-10 10:04:32 2024-07-10 10:04:32 Outpatient SFA SFA [id number] Richard Arcos 2024-07-09 11:01:34 2024-07-09 11:01:34 Outpatient SFA [facility] [id number] Richard Arcos 2024-06-21 08:25:59 2024-06-21 08:25:59 Outpatient SFA SFA [id number] Richard Arcos 2024-02-23 00:00:00 2024-03-27 18:24:07 Patient Secure Autumn [facility] 1..840.114 350.1.13.10 4.2.7.2.686 [id number] [facility] 2024-03-23 09:27:15 2024-03-23 09:27:15 Outpatient SFA [facility] [id number] Richard Arcos 2024-02-21 00:00:00 2024-02-23 15:55:27 Patient Secure Autumn [facility] 1..840.114 350.1.13.10 4.2.7.2.686 [id number] [facility] 2023-12-31 10:30:00 2023-12-31 10:45:22 Outpatient R MARJORIE BENÍTEZ [facility] [id number] [facility] 2023-12-31 10:30:00 2023-12-31 10:45:22 Office Visit Marjorie Benítez [facility] NETWORK CABLE INSTALLER [facility] & CHILD [facility] 1..840.114 350.1.13.10 4.2.7.2.686 [id number] [facility] 2023-12-25 10:07:46 2023-12-25 10:07:46 Outpatient SFA SFA [id number] Richard Arcos 2023-12-22 00:00:00 2023-12-23 09:24:19 Telephone Marjorie Benítez [facility] NETWORK CABLE INSTALLER [facility] & CHILD [facility] 1..840.114 350.1.13.10 4.2.7.2.686 [id number] [facility] 2023-12-22 10:30:00 2023-12-22 10:30:00 Outpatient R MARJORIE BENÍTEZ [facility] [id number] [facility] 2023-11-06 07:45:00 2023-11-06 08:33:44 Outpatient R MARJORIE BENÍTEZ [facility] [id number] [facility] 2023-11-06 07:45:00 2023-11-06 08:33:44 Office Visit Marjorie Benítez [facility] NETWORK CABLE INSTALLER [facility] & CHILD [facility] 1..840.114 350.1.13.10 4.2.7.2.686 [id number] [facility] 2023-11-04 08:30:00 2023-11-04 08:30:00 Outpatient R SALGADO-TD S, BÁRBARA SALGADO-TD S, BÁRBARA [facility] [id number] [facility] 2023-10-28 08:30:00 2023-10-28 08:30:00 Outpatient R SALGADO-TD S, BÁRBARA SALGADO-TD S, BÁRBARA [facility] [id number] [facility] 2023-10-27 17:28:24 2023-10-27 17:28:24 Outpatient SFA SFA [id number] Richard F Isrrael 2023-10-24 15:16:43 2023-10-24 15:16:43 Outpatient SFA SFA [id number] Richard F Isrrael 2023-08-27 11:41:54 2023-08-27 11:41:54 Outpatient SFA SFA [id number] Richard F Isrrael 2023-08-11 00:00:00 2023-08-11 00:00:00 Telephone Criss Leyva [facility] FINN?[facility] 1.2.840.114 350.1.13.10 4.2.7.2.686 [id number] [facility] 2023-07-06 00:00:00 2023-07-06 00:00:00 Refill Autumn [facility] 1.2840.114 350.1.13.10 4.2.7.2.686 [id number] [facility] 2023-05-06 10:58:37 2023-05-06 23:59:00 Outpatient [facility] [id number] [facility] 2023-05-06 10:40:00 2023-05-06 23:59:00 Hospital Encounter Krisyt [facility] 1.2840.114 350.1.13.10 4.2.7.2.686 [id number] [facility] 2023-05-06 10:10:00 2023-05-06 11:34:54 Office Visit Kristy [facility] AD[facility] 1.2840.114 350.1.13.10 4.2.7.2.686 [id number] [facility] 2023-05-06 00:00:00 2023-05-06 00:00:00 Patient Secure Msg [facility] MEDICAL OFFICE BUILDING 1.284.114 350.1.13.10 4.2.7.2.686 [id number] [facility] 2023-05-05 00:00:00 2023-05-05 00:00:00 Telephone Criss Leyva [facility] FINN?[facility] 1.284.114 350.1.13.10 4.2.7.2.686 [id number] [facility] 2023-04-29 11:00:00 2023-04-29 11:00:00 Office Visit Bárbara Sanchez [facility] 1.2.114 350.1.13.10 4.2.7.2.686 [id number] [facility] 2023-04-29 11:00:00 2023-04-29 10:55:42 Outpatient R SALGADO-TD S, BÁRBARA SALGADO-TD S, BÁRBARA [facility] [id number] [facility] 2023-04-28 00:00:00 2023-04-28 00:00:00 Telephone Criss Leyva [facility]?LIZET [facility] MED[facility] OFF[facility] BUILDING 1..840.114 350.1.13.10 4.2.7.2.686 [id number] [facility] 2023-04-23 14:30:00 2023-04-23 14:45:00 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 Lab, Price - Nicolas Sandyyo [facility] OFF[facility] BUILD[facility] 1.840.114 350.1.13.10 4.2.7.2.686 [id number] [facility] 2023-04-23 14:00:00 2023-04-23 14:23:47 Outpatient R CRISS LEYVA [facility] [id number] [facility] 2023-04-23 14:00:00 2023-04-23 14:23:47 Office Visit Autumn [facility] OFF[facility] BUILD[facility] 1.840.114 350.1.13.10 4.2.7.2.686 [id number] [facility] 2023-04-08 13:01:17 2023-04-08 13:01:17 Outpatient [facility] [id number] Richard Arcos 2023-04-07 07:33:00 2023-04-07 11:00:00 Hospital Encounter Salgado-Td s, Bárbara [facility] 1.840.114 350.1.13.10 4.2.7.2.686 [id number] [facility] 2023-04-07 07:33:00 2023-04-07 11:00:00 Outpatient R SALGADO-TD S, BÁRBARA SALGADO-TD S, BÁRBARA [facility] OLIVE KNOCKER [id number] [facility] 2023-04-07 08:39:00 2023-04-07 09:58:00 Surgery Salgado-Td s, Bárbara [facility] 1.840.114 350.1.13.10 4.2.7.2.686 [id number] [facility] 2023-04-05 10:45:00 2023-04-05 11:00:00 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 Pob, Adc Lab Main Salgado-Td s, Bárbara [facility] 1.840.114 350.1.13.10 4.2.7.2.686 [id number] [facility] 2023-04-05 10:45:00 2023-04-05 10:45:00 Outpatient R SALGADO-TD S, BÁRBARA SALGADO-TD S, BÁRBARA [facility] [id number] [facility] 2023-04-01 11:00:00 2023-04-01 11:30:00 Office Visit Salgado-Td s Bárbara [facility] 1.840.114 350.1.13.10 4.2.7.2.686 [id number] [facility] 2023-04-01 11:00:00 2023-04-01 11:00:00 Outpatient R SALGADO-TD S, BÁRBARA SALGADO-TD S, BÁRBARA [facility] [id number] [facility] 2023-04-01 00:00:00 2023-04-01 00:00:00 Orders Only Doctor Unassigned, [place] [facility] 1.840.114 350.1.13.10 4.2.7.2.686 [id number] [facility] 2023-03-20 10:00:00 2023-03-20 10:30:00 Office Visit Bárbara Sanchez [facility] 1.2840.114 350.1.13.10 4.2.7.2.686 [id number] [facility] 2023-03-20 10:00:00 2023-03-20 10:00:00 Outpatient R SALGADO-TD S, BÁRBARA SALGADO-TD S, BÁRBARA [facility] [id number] [facility] 2023-03-19 20:00:00 2023-03-19 20:00:00 Outpatient R RONAKKEIRY, ANGIEL RONAKYESSY RICCIMEL [facility] [id number] [facility] 2023-03-19 00:00:00 2023-03-19 00:00:00 Patient Secure Msg Chrissy-Td sLorieBárbara [facility] BUILDING 1.2.840.114 350.1.13.10 4.2.7.2.686 [id number] [facility] 2023-03-17 14:30:00 2023-03-17 15:29:16 Outpatient R SALGADO-TD S, BÁRBARA SALGADO-TD S, BÁRBARA [facility] [id number] [facility] 2023-03-17 14:30:00 2023-03-17 15:29:16 Office Visit Chrissy-Td sLorieBárbara [facility] BUILDING 1.2.840.114 350.1.13.10 4.2.7.2.686 [id number] [facility] 2023-03-17 00:00:00 2023-03-17 00:00:00 Orders Only Doctor Unassigned, [place] [facility] 1.2.840.114 350.1.13.10 4.2.7.2.686 [id number] [facility] 2023-03-13 16:03:07 2023-03-13 16:03:07 Outpatient [facility] [id number] Richard Arcos 2023-03-10 00:00:00 2023-03-10 00:00:00 Patient Secure Msg Doctor Unassigned, [place] [facility]?LIZET [facility] MEDICAL OFF[facility] BUILDING 1..840.114 350.1.13.10 4.2.7.2.686 [id number] [facility] 2023-02-26 11:00:00 2023-02-26 23:59:00 Outpatient LANG PEREZ HOWARD [facility] [id number] [facility] 2023-02-26 11:00:00 2023-02-26 23:59:00 Hospital Encounter Lang Jackson [facility] Eeg RUEL [facility] 1..840.114 350.1.13.10 4.2.7.2.686 [id number] [facility] 2023-02-18 00:00:00 2023-02-18 00:00:00 Patient Secure Msg Doctor Unassigned, [place] RUEL [facility] 1.2.840.114 350.1.13.10 4.2.7.2.686 [id number] [facility] 2023-02-13 15:21:55 2023-02-13 15:21:55 Outpatient [facility] [id number] Richard Arcos 2023-02-10 10:40:00 2023-02-10 11:23:05 Outpatient LANG PEREZ HOWARD [facility] [id number] [facility] 2023-02-10 10:40:00 2023-02-10 11:23:05 [facility] 1..840.114 350.1.13.10 4.2.7.2.686 [id number] [facility] 2023-01-21 00:00:00 2023-01-21 00:00:00 Orders Only Doctor Unassigned, [place] [facility] 1.840.114 350.1.13.10 4.2.7.2.686 [id number] [facility] 2023-01-14 15:31:53 2023-01-14 15:31:53 Outpatient SFA [facility] [id number] Richard Arcos 2023-01-14 13:30:00 2023-01-14 13:30:00 Outpatient R CRISS LEYVA [facility] [id number] [facility] 2023-01-14 10:00:00 2023-01-14 10:38:59 Outpatient R CRISS LEYVA [facility] [id number] [facility] 2023-01-14 10:00:00 2023-01-14 10:38:59 Office Visit Criss Leyva [facility] 1..840.114 350.1.13.10 4.2.7.2.686 [id number] [facility] 2023-01-08 08:06:42 2023-01-08 08:06:42 Outpatient SFA [facility] [id number] Richard Arcos 2023-01-08 00:00:00 2023-01-08 00:00:00 Telephone Autumn Criss [facility] MED[facility] OFF[facility] BU[facility] 1..840.114 350.1.13.10 4.2.7.2.686 [id number] [facility] 2023-01-07 12:51:56 2023-01-07 23:59:00 Outpatient R CRISS LEYVA [facility] [id number] [facility] 2023-01-07 12:51:56 2023-01-07 23:59:00 Hospital Encounter Criss Leyva [facility] 1.2840.114 350.1.13.10 4.2.7.2.686 [id number] [facility] 2023-01-07 12:15:00 2023-01-07 12:30:00 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 Lab, Price - [facility] 1.2.840.114 350.1.13.10 4.2.7.2.686 [id number] [facility] 2023-01-07 11:30:00 2023-01-07 12:00:00 Office Visit Criss Leyva [facility] FINN?[facility] 1.2.840.114 350.1.13.10 4.2.7.2.686 [id number] [facility] 2022-12-26 00:00:00 2022-12-26 00:00:00 Patient Secure Msg Criss Leyva [facility] FINN?[facility] 1.2840.114 350.1.13.10 4.2.7.2.686 [id number] [facility] 2022-12-21 00:00:00 2022-12-21 00:00:00 Patient Secure Msg Autumn [facility] FINN?[facility] 1.2840.114 350.1.13.10 4.2.7.2.686 [id number] [facility] 2022-12-18 08:20:49 2022-12-18 08:20:49 Outpatient [facility] JOHNATHAN [id number] Richard Lorena Isrrael 2022-12-16 13:30:00 2022-12-16 14:07:58 Outpatient R CRISS LEYVA [facility] [id number] [facility] 2022-12-16 13:30:00 2022-12-16 14:07:58 Office Visit Criss Leyva [facility] FINN?[facility]Y [facility] 1.2840.114 350.1.13.10 4.2.7.2.686 [id number] [facility] 2022-11-22 00:00:00 2022-11-22 00:00:00 Telephone Criss Leyva [facility] FINN?LIZET RECIO [facility] 1.840.114 350.1.13.10 4.2.7.2.686 [id number] [facility] 2022-11-21 00:00:00 2022-11-21 00:00:00 Patient Secure Mandy Herron [facility] 1..114 350.1.13.10 4.2.7.2.686 [id number] [facility] 2022-11-20 11:30:00 2022-11-20 12:00:00 Office Visit Criss Leyva [facility] FINN?LIZET LANDRY [facility] 1.284.114 350.1.13.10 4.2.7.2.686 [id number] [facility] 2022-11-20 11:30:00 2022-11-20 11:30:00 Outpatient R CRISS LEYVA [facility] [id number] [facility] 2022-11-14 20:00:00 2022-11-14 22:30:00 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, [facility] Sleep Lab Bed Manda [place] [facility] 1.84.114 350.1.13.10 4.2.7.2.686 [id number] [facility] 2022-11-14 20:00:00 2022-11-14 20:00:00 Outpatient R MANDA ATKINSON STRAHIL [facility] [id number] [facility] 2022-11-14 00:00:00 2022-11-14 00:00:00 Orders Only Doctor Unassigned, [place] [facility] 1.2.840.114 350.1.13.10 4.2.7.2.686 [id number] [facility] 2022-10-30 11:30:00 2022-10-30 12:00:00 Office Visit Mandy Wagner [facility] 1.2840.114 350.1.13.10 4.2.7.2.686 [id number] [facility] 2022-10-30 11:30:00 2022-10-30 11:30:00 Outpatient R MANDY WAGNER [facility] [id number] [facility] 2022-10-29 00:00:00 2022-10-29 00:00:00 Patient Secure Msg Autumn [facility] 1.2.840.114 350.1.13.10 4.2.7.2.686 [id number] [facility] 2022-10-16 08:00:00 2022-10-16 14:55:11 [facility] 1.2.840.114 350.1.13.10 4.2.7.2.686 [id number] [facility] 2022-10-16 08:00:00 2022-10-16 14:55:11 Outpatient R CRISS LEYVA [facility] [id number] [facility] 2022-10-07 11:30:00 2022-10-07 11:55:18 Outpatient R CRISS LEYVA [facility] [id number] [facility] 2022-10-07 11:30:00 2022-10-07 11:55:18 [facility] 1.2.840.114 350.1.13.10 4.2.7.2.686 [id number] [id number] [facility] 2022-10-04 14:49:29 2022-10-04 23:59:00 Outpatient R CRISS LEYVA [facility] [id number] [facility] 2022-10-04 13:30:00 2022-10-04 14:50:33 Office Visit [facility] 1.2.840.114 350.1.13.10 4.2.7.2.686 [id number] [facility] 2022-09-23 00:00:00 2022-09-23 00:00:00 Patient Secure Msg Criss Leyva [facility] 1.2.840.114 350.1.13.10 4.2.7.2.686 [id number] [id number] [facility] 2022-09-23 00:00:00 2022-09-23 00:00:00 Telephone Criss Leyva [facility] 1.2.840.114 350.1.13.10 4.2.7.2.686 [id number] [facility] 2022-09-11 13:30:00 2022-09-11 13:45:00 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 Pcp-Jelly Orozco [facility] 1.2.840.114 350.1.13.10 4.2.7.2.686 [id number] [facility] 2022-09-11 10:45:00 2022-09-11 11:19:19 Outpatient R JELLY WATERS [facility] [id number] [facility] 2022-09-11 10:45:00 2022-09-11 11:19:19 Office Visit Jelly Waters [facility] 1.840.114 350.1.13.10 4.2.7.2.686 [id number] [facility] 2022-08-27 15:15:00 2022-08-27 15:15:00 Outpatient ELIZA GIORDANO [facility] [id number] [facility] 2022-08-14 15:15:00 2022-08-14 16:00:00 Ancillary Visit Moraima Gramajo 1, [employer] Zuleyma Rivas [facility] BLD[facility]. 05.20.840.114 350.1.13.10 4.2.7.2.686 [id number] [facility] 2022-08-14 15:15:00 2022-08-14 15:15:00 Outpatient ZULEYMA MUNOZ [facility] [id number] [facility] 2022-08-06 13:45:00 2022-08-06 13:45:00 Outpatient ZULEYMA MUNOZ [facility] [id number] [facility] 2022-08-06 00:00:00 2022-08-06 00:00:00 Patient Secure Msg Doctor Unassigned, [place] [facility] ..114 350.1.13.10 4.2.7.2.686 [id number] [facility] 2022-07-12 00:00:00 2022-07-12 00:00:00 Telephone Criss Leyva [facility] 1.840.114 350.1.13.10 4.2.7.2.686 [id number] [facility] 2022-07-08 00:00:00 2022-07-08 00:00:00 Patient Secure Msg Doctor Unassigned, [place] [facility] 1.2840.114 350.1.13.10 4.2.7.2.686 [id number] [facility] 2022-07-05 00:00:00 2022-07-05 00:00:00 Telephone Criss Leyva [facility] 1.2840.114 350.1.13.10 4.2.7.2.686 [id number] [facility] 2022-07-05 00:00:00 2022-07-05 00:00:00 Telephone Criss Leyva [facility] 1.840.114 350.1.13.10 4.2.7.2.686 [id number] [id number] [facility] 2022-07-01 16:30:00 2022-07-01 17:25:44 Outpatient R VIKACRISS Ram [facility] [id number] [facility] 2022-07-01 16:30:00 2022-07-01 17:25:44 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 Lab, Price SandyCriss ram [facility] 1.840.114 350.1.13.10 4.2.7.2.686 [id number] [facility] 2022-07-01 15:30:00 2022-07-01 16:17:16 Office Visit VikaCriss ram [facility] 1.2840.114 350.1.13.10 4.2.7.2.686 [id number] [id number] [facility] 2022-06-24 16:00:00 2022-06-24 16:15:00 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 Lab, Price LeyvaCriss [facility] 1.840.114 350.1.13.10 4.2.7.2.686 [id number] [facility] 2022-06-24 15:00:00 2022-06-24 15:44:54 Outpatient R CRISS LEYVA [facility] [id number] [facility] 2022-06-24 15:00:00 2022-06-24 15:44:54 Office Visit Criss Leyva [facility] 1.840.114 350.1.13.10 4.2.7.2.686 [id number] [id number] [facility] 2022-06-24 00:00:00 2022-06-24 00:00:00 Orders Only Doctor Unassigned, [place] [facility] 1.840.114 350.1.13.10 4.2.7.2.686 [id number] [facility] 2020-12-14 14:30:00 2020-12-14 14:30:00 Outpatient R SYDNI CAO [facility] [id number] [facility] 2018-12-31 00:00:00 2018-12-31 00:00:00 Telephone Ozzie Juárez [facility] Building 1.840.114 350.1.13.10 4.2.7.2.686 [id number] [facility] 2018-12-31 00:00:00 2018-12-31 00:00:00 Telephone Ozzie Juárez [facility] Building 1.840.114 350.1.13.10 4.2.7.2.686 [id number] 2018-12-29 00:00:00 2018-12-29 00:00:[address] [facility] Building 1.840.114 350.1.13.10 4.2.7.2.686 [id number] 2018-12-29 00:00:00 2018-12-29 00:00:00 Telephone Ozzie Juárez [facility] Building 1.2.840.114 350.1.13.10 4.2.7.2.686 [id number] [facility] 2018-12-28 00:00:00 2018-12-28 00:00:00 [facility] 1.2.840.114 350.1.13.10 4.2.7.2.686 [id number] 2018-12-28 00:00:00 2018-12-28 00:00:00 [facility] 1.2.840.114 350.1.13.10 4.2.7.2.686 [id number] [facility] 2018-12-22 16:50:48 2018-12-24 21:42:12 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, 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 [facility] 1.2.840.114 350.1.13.10 4.2.7.2.686 [id number] 2018-12-22 16:50:48 2018-12-24 21:42:12 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, Adc Lab Ozzie Juárez [facility] 1.2.840.114 350.1.13.10 4.2.7.2.686 [id number] [facility] 2018-12-22 00:00:00 2018-12-22 00:00:00 Orders Only Doctor Unassigned, [place] [facility] 1.2.840.114 350.1.13.10 4.2.7.2.686 [id number] [facility] 2018-12-21 00:00:00 2018-12-21 00:00:00 Telephone Ozzie Juárez [facility] 1.2.840.114 350.1.13.10 4.2.7.2.686 [id number] [facility] 2018-12-18 00:00:00 2018-12-18 00:00:00 Telephone Ozzie Juárez [facility] 1.2.840.114 350.1.13.10 4.2.7.2.686 [id number] [facility] Results Test Description Test Time Test Comments Results Result Co mments Source If your patient does not have signs or symptoms of UTI, it is recommended NOT to treat, with the exception of and prior to urologic procedures. THINPREP TIS PAP AND HPV mRNA E6/E7 WITH REFLEX TO HPV 16,18/[id number] 00:00:00* Test Item Value Reference Range Interpretation Comme nts REPORT STATUS: (test code = 8251-1) DNR GENERAL CATEGORIZATION: (blossom t code = 66139-7) DNR INFECTION: (test code = 25095-1) DNR REVIEW SEGMENT PRODUCER: (te st code = 68108-4) DNR PATHOLOGIST: (test code = 54741-0) DNR HPV mRNA E6/E7 (test code = 93986-4) Not Detected Richard Carrillo IsrraelTHINPREP TIS PAP AND HPV mRNA E6/E7 WITH REFLEX TO HPV 16,18/45 2025-01-03 00:00:00* Test Item Value Reference Range Interpretation Comme nts REPORT STATUS: (test code = 8251-1) DNR GENERAL CATEGORIZATION: (blossom t code = 82755-1) DNR INFECTION: (test code = 55965-6) DNR REVIEW SEGMENT PRODUCER: (te st code = 03916-8) DNR PATHOLOGIST: (test code = 97215-2) DNR HPV mRNA E6/E7 (test code = 25548-1) Not Detected Richard Carrillo AustinTHINPREP TIS PAP AND HPV mRNA E6/E7 WITH REFLEX TO HPV 16,18/45 2025-01-03 00:00:00* Test Item Value Reference Range Interpretation Comme nts REPORT STATUS: (test code = 8251-1) DNR GENERAL CATEGORIZATION: (blossom t code = 07802-6) DNR INFECTION: (test code = 24358-4) DNR REVIEW SEGMENT PRODUCER: (te st code = 63369-1) DNR PATHOLOGIST: (test code = ) DNR HPV mRNA E6/E7 (test code = 09411-5) Not Detected Richard Carrillo AustinTHINPREP TIS PAP AND HPV mRNA E6/E7 WITH REFLEX TO HPV 16,18/45 2025-01-03 00:00:00* Test Item Value Reference Range Interpretation Comme nts REPORT STATUS: (test code = 8251-1) DNR GENERAL CATEGORIZATION: (blossom t code = 97783-7) DNR INFECTION: (test code = 65500-2) DNR REVIEW SEGMENT PRODUCER: (te st code = 72726-7) DNR PATHOLOGIST: (test code = ) DNR HPV mRNA E6/E7 (test code = 72820-8) Not Detected Richard Carrillo AustinTHINPREP TIS PAP AND HPV mRNA E6/E7 WITH REFLEX TO HPV 16,18/45 2025-01-03 00:00:00* Test Item Value Reference Range Interpretation Comme nts REPORT STATUS: (test code = 8251-1) DNR GENERAL CATEGORIZATION: (blossom t code = 75574-1) DNR INFECTION: (test code = 64441-9) DNR REVIEW SEGMENT PRODUCER: (te st code = 48161-0) DNR PATHOLOGIST: (test code = ) DNR HPV mRNA E6/E7 (test code = 07434-7) Not Detected Richard Carrillo AustinOBSTETRIC [id number] 00:00:00* Test Item Value Reference Range Interpretation [...] cells/uL ABSOLUTE BAND NEUTROPHILS (test code = 67517-0) DNR cells/uL ABSOLUTE METAMYELOCYTES (test code = 39089-1) DNR cells/uL ABSOLUTE MYELOCYTES (test code = 22374-9) DNR cells/uL ABSOLUTE PROMYELOCYTES (test code = 08523-2) DNR cells/uL ABSOLUTE LYMPHOCYTES (test code = 731-0) 1680 cells/uL ABSOLUTE MONOCYTES (test code = 742-7) 730 cells/uL ABSOLUTE EOSINOPHILS (test code = 711-2) 90 cells/uL ABSOLUTE BASOPHILS (test code = 704-7) 80 cells/uL ABSOLUTE BLASTS (test code = 31104-2) DNR cells/uL ABSOLUTE NUCLEATED RBC (test code = 76433-1) DNR cells/uL NEUTROPHILS (test code = 770-8) 74.2 % BAND NEUTROPHILS (test code = 764-1) DNR % METAMYELOCYTES (test code = 740-1) DNR % MYELOCYTES (test code = 749-2) DNR % PROMYELOCYTES (test code = 783-1) DNR % LYMPHOCYTES (test code = 736-9) 16.8 % REACTIVE LYMPHOCYTES (test code = 28809-6) DNR % MONOCYTES (test code = 5905-5) 7.3 % EOSINOPHILS (test code = 713-8) 0.9 % BASOPHILS (test code = 706-2) 0.8 % BLASTS (test code = 709-6) DNR % NUCLEATED RBC (test code = 70275-4) DNR /100WBC COMMENT(S) (test code = 8251-1) DNR ANTIBODY SCREEN, RBC W/REFL ID, TITER AND AG (test code = 890-4) NO ANTIBODIES DETECTED ABO GROUP (test code = 883-9) A RH TYPE (test code = 16875-0) RH(D) POSITIVE RPR (DX) W/REFL TITER AND CONFIRMATORY TESTING (test code = 83912-0) NON-REACTIVE HEPATITIS B SURFACE ANTIGEN (test code = 5196-1) NON-REACTIVE CONFIRMATION (test code = 7905-3) DNR RUBELLA AB (IGG), IMMUNE STATUS (test code = 5334-8) 21.20 Index Richard ArcosCULTURE, URINE, [id number] 00:00:00* Test Item Value Reference Range Interpretation Comme nts CULTURE, URINE, ROUTINE (blossom t code = 630-4) SEE NOTE Richard ArcosHIV 1/2 ANTIGEN/ANTIBODY,FOURTH GENERATION [id number] 00:00:00* Test Item Value Reference Range Interpretation Comme nts HIV AG/AB, 4TH GEN (test cod e = 86863-9) NON-REACTIVE Richard Carrillo [id number] 00:00:00* Test Item Value Reference Range Interpretation Comme nts TSH (test code = 3016-3) 1.63 mIU/L Richard ArcosHEPATITIS PANEL, [id number] 00:00:00* Test Item Value Reference Range Interpretation Comme nts HEPATITIS A AB, TOTAL (test code = 12108-1) REACTIVE HEPATITIS B SURFACE ANTIBODY QL (test code = 60107-1) NON-REACTIVE HEPATITIS B SURFACE ANTIGEN (test code = 5196-1) NON-REACTIVE CONFIRMATION (test code = 7905-3) DNR HEPATITIS B CORE AB TOTAL (t est code = 48498-4) NON-REACTIVE HEPATITIS C ANTIBODY (test c ode = 98070-5) NON-REACTIVE Richard ArcosVARICELLA ZOSTER VIRUS ANTIBODY (IGG)2025-01-01 00:00:00* Test Item Value Reference Range Interpretation Comme nts VARICELLA ZOSTER VIRUS ANTIB POOJA (IGG) (test code = 5403-1) 15.30 S/CO Richard ArcosCHLAMYDIA/N. GONORRHOEAE RNA, [id number] 00:00:00* Test Item Value Reference Range Interpretation Comme nts CHLAMYDIA TRACHOMATIS RNA, T MA, UROGENITAL (test code = 29873-0) NOT DETECTED NEISSERIA GONORRHOEAE RNA, T MA, UROGENITAL (test code = 29846-9) NOT DETECTED Richard ArcosCULTURE, URINE, [id number] 00:00:00* Test Item Value Reference Range Interpretation Comme nts CULTURE, URINE, ROUTINE (blossom t code = 630-4) SEE NOTE Richard ArcosOBSTETRIC [id number] 00:00:00* Test Item Value Reference Range Interpretation [...] cells/uL ABSOLUTE BAND NEUTROPHILS (test code = 16489-6) DNR cells/uL ABSOLUTE METAMYELOCYTES (test code = 89962-6) DNR cells/uL ABSOLUTE MYELOCYTES (test code = 29359-1) DNR cells/uL ABSOLUTE PROMYELOCYTES (test code = 21253-3) DNR cells/uL ABSOLUTE LYMPHOCYTES (test code = 731-0) 1680 cells/uL ABSOLUTE MONOCYTES (test code = 742-7) 730 cells/uL ABSOLUTE EOSINOPHILS (test code = 711-2) 90 cells/uL ABSOLUTE BASOPHILS (test code = 704-7) 80 cells/uL ABSOLUTE BLASTS (test code = 76531-8) DNR cells/uL ABSOLUTE NUCLEATED RBC (test code = 53019-0) DNR cells/uL NEUTROPHILS (test code = 770-8) 74.2 % BAND NEUTROPHILS (test code = 764-1) DNR % METAMYELOCYTES (test code = 740-1) DNR % MYELOCYTES (test code = 749-2) DNR % PROMYELOCYTES (test code = 783-1) DNR % LYMPHOCYTES (test code = 736-9) 16.8 % REACTIVE LYMPHOCYTES (test code = 71447-6) DNR % MONOCYTES (test code = 5905-5) 7.3 % EOSINOPHILS (test code = 713-8) 0.9 % BASOPHILS (test code = 706-2) 0.8 % BLASTS (test code = 709-6) DNR % NUCLEATED RBC (test code = 96961-2) DNR /100WBC COMMENT(S) (test code = 8251-1) DNR ANTIBODY SCREEN, RBC W/REFL ID, TITER AND AG (test code = 890-4) NO ANTIBODIES DETECTED ABO GROUP (test code = 883-9) A RH TYPE (test code = 02841-7) RH(D) POSITIVE RPR (DX) W/REFL TITER AND CONFIRMATORY TESTING (test code = 15738-3) NON-REACTIVE HEPATITIS B SURFACE ANTIGEN (test code = 5196-1) NON-REACTIVE CONFIRMATION (test code = 7905-3) DNR RUBELLA AB (IGG), IMMUNE STATUS (test code = 5334-8) 21.20 Index Richard ArcosHIV 1/2 ANTIGEN/ANTIBODY,FOURTH GENERATION [id number] 00:00:00* Test Item Value Reference Range Interpretation Comme nts HIV AG/AB, 4TH GEN (test cod e = 95101-4) NON-REACTIVE Richard [id number] 00:00:00* Test Item Value Reference Range Interpretation Comme nts TSH (test code = 3016-3) 1.63 mIU/L Richard ArcosHEPATITIS PANEL, [id number] 00:00:00* Test Item Value Reference Range Interpretation Comme nts HEPATITIS A AB, TOTAL (test code = 04164-6) REACTIVE HEPATITIS B SURFACE ANTIBODY QL (test code = 39432-9) NON-REACTIVE HEPATITIS B SURFACE ANTIGEN (test code = 5196-1) NON-REACTIVE CONFIRMATION (test code = 7905-3) DNR HEPATITIS B CORE AB TOTAL (t est code = 86354-9) NON-REACTIVE HEPATITIS C ANTIBODY (test c ode = 50063-2) NON-REACTIVE Richard ArcosVARICELLA ZOSTER VIRUS ANTIBODY (IGG)2025-01-01 00:00:00* Test Item Value Reference Range Interpretation Comme nts VARICELLA ZOSTER VIRUS ANTIB POOJA (IGG) (test code = 5403-1) 15.30 S/CO Richard ArcosCHLAMYDIA/N. GONORRHOEAE RNA, [id number] 00:00:00* Test Item Value Reference Range Interpretation Comme nts CHLAMYDIA TRACHOMATIS RNA, T MA, UROGENITAL (test code = 09060-1) NOT DETECTED NEISSERIA GONORRHOEAE RNA, T MA, UROGENITAL (test code = 51942-8) NOT DETECTED Richard ArcosCULTURE, URINE, [id number] 00:00:00* Test Item Value Reference Range Interpretation Comme nts CULTURE, URINE, ROUTINE (blossom t code = 630-4) SEE NOTE Richard Carrillo AustinOBSTETRIC [id number] 00:00:00* Test Item Value Reference Range Interpretation [...] cells/uL ABSOLUTE BAND NEUTROPHILS (test code = 39342-2) DNR cells/uL ABSOLUTE METAMYELOCYTES (test code = 32608-2) DNR cells/uL ABSOLUTE MYELOCYTES (test code = 92568-9) DNR cells/uL ABSOLUTE PROMYELOCYTES (test code = 77647-5) DNR cells/uL ABSOLUTE LYMPHOCYTES (test code = 731-0) 1680 cells/uL ABSOLUTE MONOCYTES (test code = 742-7) 730 cells/uL ABSOLUTE EOSINOPHILS (test code = 711-2) 90 cells/uL ABSOLUTE BASOPHILS (test code = 704-7) 80 cells/uL ABSOLUTE BLASTS (test code = 00686-0) DNR cells/uL ABSOLUTE NUCLEATED RBC (test code = 69177-0) DNR cells/uL NEUTROPHILS (test code = 770-8) 74.2 % BAND NEUTROPHILS (test code = 764-1) DNR % METAMYELOCYTES (test code = 740-1) DNR % MYELOCYTES (test code = 749-2) DNR % PROMYELOCYTES (test code = 783-1) DNR % LYMPHOCYTES (test code = 736-9) 16.8 % REACTIVE LYMPHOCYTES (test code = 16695-6) DNR % MONOCYTES (test code = 5905-5) 7.3 % EOSINOPHILS (test code = 713-8) 0.9 % BASOPHILS (test code = 706-2) 0.8 % BLASTS (test code = 709-6) DNR % NUCLEATED RBC (test code = 06797-5) DNR /100WBC COMMENT(S) (test code = 8251-1) DNR ANTIBODY SCREEN, RBC W/REFL ID, TITER AND AG (test code = 890-4) NO ANTIBODIES DETECTED ABO GROUP (test code = 883-9) A RH TYPE (test code = 80231-3) RH(D) POSITIVE RPR (DX) W/REFL TITER AND CONFIRMATORY TESTING (test code = 78852-7) NON-REACTIVE HEPATITIS B SURFACE ANTIGEN (test code = 5196-1) NON-REACTIVE CONFIRMATION (test code = 7905-3) DNR RUBELLA AB (IGG), IMMUNE STATUS (test code = 5334-8) 21.20 Index Richard ArcosHIV 1/2 ANTIGEN/ANTIBODY,FOURTH GENERATION [id number] 00:00:00* Test Item Value Reference Range Interpretation Comme nts HIV AG/AB, 4TH GEN (test cod e = 47131-7) NON-REACTIVE Richard [id number] 00:00:00* Test Item Value Reference Range Interpretation Comme nts TSH (test code = 3016-3) 1.63 mIU/L Richard ArcosHEPATITIS PANEL, [id number] 00:00:00* Test Item Value Reference Range Interpretation Comme nts HEPATITIS A AB, TOTAL (test code = 05849-9) REACTIVE HEPATITIS B SURFACE ANTIBODY QL (test code = 59424-3) NON-REACTIVE HEPATITIS B SURFACE ANTIGEN (test code = 5196-1) NON-REACTIVE CONFIRMATION (test code = 7905-3) DNR HEPATITIS B CORE AB TOTAL (t est code = 88321-9) NON-REACTIVE HEPATITIS C ANTIBODY (test c ode = 31142-5) NON-REACTIVE Richard ArcosVARICELLA ZOSTER VIRUS ANTIBODY (IGG)2025-01-01 00:00:00* Test Item Value Reference Range Interpretation Comme annalisa VARICELLA ZOSTER VIRUS ANTIB POOJA (IGG) (test code = 5403-1) 15.30 S/CO Richard ArcosCHLAMYDIA/N. GONORRHOEAE RNA, [id number] 00:00:00* Test Item Value Reference Range Interpretation Comme annalisa CHLAMYDIA TRACHOMATIS RNA, T MA, UROGENITAL (test code = 35100-3) NOT DETECTED NEISSERIA GONORRHOEAE RNA, T MA, UROGENITAL (test code = 73205-4) NOT DETECTED Richard ArcosOBSTETRIC [id number] 00:00:00* Test Item Value Reference Range Interpretation [...] cells/uL ABSOLUTE BAND NEUTROPHILS (test code = 34369-9) DNR cells/uL ABSOLUTE METAMYELOCYTES (test code = 72076-0) DNR cells/uL ABSOLUTE MYELOCYTES (test code = 63643-0) DNR cells/uL ABSOLUTE PROMYELOCYTES (test code = 56625-2) DNR cells/uL ABSOLUTE LYMPHOCYTES (test code = 731-0) 1680 cells/uL ABSOLUTE MONOCYTES (test code = 742-7) 730 cells/uL ABSOLUTE EOSINOPHILS (test code = 711-2) 90 cells/uL ABSOLUTE BASOPHILS (test code = 704-7) 80 cells/uL ABSOLUTE BLASTS (test code = 31264-5) DNR cells/uL ABSOLUTE NUCLEATED RBC (test code = 39337-3) DNR cells/uL NEUTROPHILS (test code = 770-8) 74.2 % BAND NEUTROPHILS (test code = 764-1) DNR % METAMYELOCYTES (test code = 740-1) DNR % MYELOCYTES (test code = 749-2) DNR % PROMYELOCYTES (test code = 783-1) DNR % LYMPHOCYTES (test code = 736-9) 16.8 % REACTIVE LYMPHOCYTES (test code = 75873-3) DNR % MONOCYTES (test code = 5905-5) 7.3 % EOSINOPHILS (test code = 713-8) 0.9 % BASOPHILS (test code = 706-2) 0.8 % BLASTS (test code = 709-6) DNR % NUCLEATED RBC (test code = 69599-1) DNR /100WBC COMMENT(S) (test code = 8251-1) DNR ANTIBODY SCREEN, RBC W/REFL ID, TITER AND AG (test code = 890-4) NO ANTIBODIES DETECTED ABO GROUP (test code = 883-9) A RH TYPE (test code = 49716-5) RH(D) POSITIVE RPR (DX) W/REFL TITER AND CONFIRMATORY TESTING (test code = 46560-7) NON-REACTIVE HEPATITIS B SURFACE ANTIGEN (test code = 5196-1) NON-REACTIVE CONFIRMATION (test code = 7905-3) DNR RUBELLA AB (IGG), IMMUNE STATUS (test code = 5334-8) 21.20 Index Richard Carrillo AustinCULTURE, URINE, [id number] 00:00:00* Test Item Value Reference Range Interpretation Comme nts CULTURE, URINE, ROUTINE (blossom t code = 630-4) SEE NOTE Richard Carrillo AustinHIV 1/2 ANTIGEN/ANTIBODY,FOURTH GENERATION [id number] 00:00:00* Test Item Value Reference Range Interpretation Comme nts HIV AG/AB, 4TH GEN (test cod e = 80414-0) NON-REACTIVE Richard [id number] 00:00:00* Test Item Value Reference Range Interpretation Comme nts TSH (test code = 3016-3) 1.63 mIU/L Richard ArcosHEPATITIS PANEL, [id number] 00:00:00* Test Item Value Reference Range Interpretation Comme nts HEPATITIS A AB, TOTAL (test code = 69870-9) REACTIVE HEPATITIS B SURFACE ANTIBODY QL (test code = 13349-3) NON-REACTIVE HEPATITIS B SURFACE ANTIGEN (test code = 5196-1) NON-REACTIVE CONFIRMATION (test code = 7905-3) DNR HEPATITIS B CORE AB TOTAL (t est code = 23240-6) NON-REACTIVE HEPATITIS C ANTIBODY (test c ode = 61118-0) NON-REACTIVE Richard ArcosVARICELLA ZOSTER VIRUS ANTIBODY (IGG)2025-01-01 00:00:00* Test Item Value Reference Range Interpretation Comme nts VARICELLA ZOSTER VIRUS ANTIB POOJA (IGG) (test code = 5403-1) 15.30 S/CO Richard ArcosCHLAMYDIA/N. GONORRHOEAE RNA, [id number] 00:00:00* Test Item Value Reference Range Interpretation Comme nts CHLAMYDIA TRACHOMATIS RNA, T MA, UROGENITAL (test code = 21473-5) NOT DETECTED NEISSERIA GONORRHOEAE RNA, T MA, UROGENITAL (test code = 81480-3) NOT DETECTED Richard ArcosCULTURE, URINE, [id number] 00:00:00* Test Item Value Reference Range Interpretation Comme nts CULTURE, URINE, ROUTINE (blossom t code = 630-4) SEE NOTE Richard Carrillo AustinOBSTETRIC [id number] 00:00:00* Test Item Value Reference Range Interpretation [...] cells/uL ABSOLUTE BAND NEUTROPHILS (test code = 56655-6) DNR cells/uL ABSOLUTE METAMYELOCYTES (test code = 34352-7) DNR cells/uL ABSOLUTE MYELOCYTES (test code = 77911-4) DNR cells/uL ABSOLUTE PROMYELOCYTES (test code = 07270-1) DNR cells/uL ABSOLUTE LYMPHOCYTES (test code = 731-0) 1680 cells/uL ABSOLUTE MONOCYTES (test code = 742-7) 730 cells/uL ABSOLUTE EOSINOPHILS (test code = 711-2) 90 cells/uL ABSOLUTE BASOPHILS (test code = 704-7) 80 cells/uL ABSOLUTE BLASTS (test code = 76460-9) DNR cells/uL ABSOLUTE NUCLEATED RBC (test code = 06014-6) DNR cells/uL NEUTROPHILS (test code = 770-8) 74.2 % BAND NEUTROPHILS (test code = 764-1) DNR % METAMYELOCYTES (test code = 740-1) DNR % MYELOCYTES (test code = 749-2) DNR % PROMYELOCYTES (test code = 783-1) DNR % LYMPHOCYTES (test code = 736-9) 16.8 % REACTIVE LYMPHOCYTES (test code = 03474-4) DNR % MONOCYTES (test code = 5905-5) 7.3 % EOSINOPHILS (test code = 713-8) 0.9 % BASOPHILS (test code = 706-2) 0.8 % BLASTS (test code = 709-6) DNR % NUCLEATED RBC (test code = 07735-2) DNR /100WBC COMMENT(S) (test code = 8251-1) DNR ANTIBODY SCREEN, RBC W/REFL ID, TITER AND AG (test code = 890-4) NO ANTIBODIES DETECTED ABO GROUP (test code = 883-9) A RH TYPE (test code = 72626-6) RH(D) POSITIVE RPR (DX) W/REFL TITER AND CONFIRMATORY TESTING (test code = 23456-2) NON-REACTIVE HEPATITIS B SURFACE ANTIGEN (test code = 5196-1) NON-REACTIVE CONFIRMATION (test code = 7905-3) DNR RUBELLA AB (IGG), IMMUNE STATUS (test code = 5334-8) 21.20 Index Richard Carrillo IsrraelHIV 05/20 ANTIGEN/ANTIBODY,FOURTH GENERATION [id number] 00:00:00* Test Item Value Reference Range Interpretation Comme nts HIV AG/AB, 4TH GEN (test cod e = 79295-4) NON-REACTIVE Richard [id number] 00:00:00* Test Item Value Reference Range Interpretation Comme nts TSH (test code = 3016-3) 1.63 mIU/L Richard ArcosHEPATITIS PANEL, [id number] 00:00:00* Test Item Value Reference Range Interpretation Comme nts HEPATITIS A AB, TOTAL (test code = 97652-8) REACTIVE HEPATITIS B SURFACE ANTIBODY QL (test code = 39076-3) NON-REACTIVE HEPATITIS B SURFACE ANTIGEN (test code = 5196-1) NON-REACTIVE CONFIRMATION (test code = 7905-3) DNR HEPATITIS B CORE AB TOTAL (t est code = 48558-5) NON-REACTIVE HEPATITIS C ANTIBODY (test c ode = 82083-1) NON-REACTIVE Richard ArcosVARICELLA ZOSTER VIRUS ANTIBODY (IGG)2025-01-01 00:00:00* Test Item Value Reference Range Interpretation Comme nts VARICELLA ZOSTER VIRUS ANTIB POOJA (IGG) (test code = 5403-1) 15.30 S/CO Richard ArcosCHLAMYDIA/N. GONORRHOEAE RNA, [id number] 00:00:00* Test Item Value Reference Range Interpretation Comme nts CHLAMYDIA TRACHOMATIS RNA, T MA, UROGENITAL (test code = 99995-8) NOT DETECTED NEISSERIA GONORRHOEAE RNA, T MA, UROGENITAL (test code = 56572-8) NOT DETECTED Richard ArcosGLUCOSE, POSTPRANDIAL/ 1 [id number] 00:00:00* Test Item Value Reference Range Interpretation Comme annalisa GLUCOSE, POSTPRANDIAL/ 1 KAITLIN R (test code = 77174-5) 87 mg/dL Richard Carrillo AustinBV/VAGINITIS PANEL DNA [id number] 00:00:00* Test Item Value Reference Range Interpretation Comme nts TRICHOMONAS: (test code = 6568-0) NOT DETECTED GARDNERELLA: (test code = 6410-5) DETECTED ROCIO: (test code = 62015-2) NOT DETECTED Richard ArcosGLUCOSE, POSTPRANDIAL/ 1 [id number] 00:00:00* Test Item Value Reference Range Interpretation Comme nts GLUCOSE, POSTPRANDIAL/ 1 KAITLIN R (test code = 23621-6) 87 mg/dL Richard F AustinBV/VAGINITIS PANEL DNA [id number] 00:00:00* Test Item Value Reference Range Interpretation Comme nts TRICHOMONAS: (test code = 6568-0) NOT DETECTED GARDNERELLA: (test code = 6410-5) DETECTED ROCIO: (test code = 23840-5) NOT DETECTED Richard F AustinGLUCOSE, POSTPRANDIAL/ 1 [id number] 00:00:00* Test Item Value Reference Range Interpretation Comme nts GLUCOSE, POSTPRANDIAL/ 1 KAITLIN R (test code = 96904-3) 87 mg/dL Richard F AustinBV/VAGINITIS PANEL DNA [id number] 00:00:00* Test Item Value Reference Range Interpretation Comme nts TRICHOMONAS: (test code = 6568-0) NOT DETECTED GARDNERELLA: (test code = 6410-5) DETECTED ROCIO: (test code = 72665-6) NOT DETECTED Richard F AustinBV/VAGINITIS PANEL DNA [id number] 00:00:00* Test Item Value Reference Range Interpretation Comme nts TRICHOMONAS: (test code = 6568-0) NOT DETECTED GARDNERELLA: (test code = 6410-5) DETECTED ROCIO: (test code = 72308-5) NOT DETECTED Richard Carrillo AustinGLUCOSE, POSTPRANDIAL/ 1 [id number] 00:00:00* Test Item Value Reference Range Interpretation Comme nts GLUCOSE, POSTPRANDIAL/ 1 KAITLIN R (test code = 41571-3) 87 mg/dL Richard F AustinGLUCOSE, POSTPRANDIAL/ 1 [id number] 00:00:00* Test Item Value Reference Range Interpretation Comme nts GLUCOSE, POSTPRANDIAL/ 1 KAITLIN R (test code = 70623-4) 87 mg/dL Richard F AustinBV/VAGINITIS PANEL DNA [id number] 00:00:00* Test Item Value Reference Range Interpretation Comme nts TRICHOMONAS: (test code = 6568-0) NOT DETECTED GARDNERELLA: (test code = 6410-5) DETECTED ROCIO: (test code = 25938-0) NOT DETECTED Richard F AustinSED RATE BY MODIFIED JORGEREN [ADDED]2024-08-25 00:00:00* Test Item Value Reference Range Interpretation Comme nts SED RATE BY MODIFIED ELIASERG SWETHA (test code = 4537-7) 2 mm/h Richard F AustinC-REACTIVE PROTEIN [ADDED]2024-08-25 00:00:00* Test Item Value Reference Range Interpretation Comme nts C-REACTIVE PROTEIN (test cod e = 1987-5) <3.0 mg/L Richard F AustinHELICOBACTER PYLORI, UREA BREATH [id number] 00:00:00* Test Item Value Reference Range Interpretation Comme nts HELICOBACTER PYLORI, UREA BR EATH TEST (test code = 24166-0) NOT DETECTED Richard F AustinAMYLASE AND LIPASE [...] mg/L Richard F AustinHELICOBACTER PYLORI, UREA BREATH [id number] 00:00:00* Test Item Value Reference Range Interpretation Comme nts HELICOBACTER PYLORI, UREA BR EATH TEST (test code = 03497-1) NOT DETECTED Richard F AustinAMYLASE AND LIPASE [...] mg/L Richard F AustinHELICOBACTER PYLORI, UREA BREATH [id number] 00:00:00* Test Item Value Reference Range Interpretation Comme nts HELICOBACTER PYLORI, UREA BR EATH TEST (test code = 90233-8) NOT DETECTED Richard F AustinAMYLASE AND LIPASE [...] mg/L Richard F AustinHELICOBACTER PYLORI, UREA BREATH [id number] 00:00:00* Test Item Value Reference Range Interpretation Comme nts HELICOBACTER PYLORI, UREA BR EATH TEST (test code = 73382-2) NOT DETECTED Richard F AustinAMYLASE AND LIPASE [...] mg/L Richard F AustinHELICOBACTER PYLORI, UREA BREATH [id number] 00:00:00* Test Item Value Reference Range Interpretation Comme nts HELICOBACTER PYLORI, UREA BR EATH TEST (test code = 41081-5) NOT DETECTED Richard F AustinAMYLASE AND LIPASE [...] mg/L Richard F AustinHELICOBACTER PYLORI, UREA BREATH [id number] 00:00:00* Test Item Value Reference Range Interpretation Comme nts HELICOBACTER PYLORI, UREA BR EATH TEST (test code = 08838-7) NOT DETECTED Richard F AustinAMYLASE AND LIPASE [...] mg/L Richard F AustinHELICOBACTER PYLORI, UREA BREATH [id number] 00:00:00* Test Item Value Reference Range Interpretation Comme nts HELICOBACTER PYLORI, UREA BR EATH TEST (test code = 13465-2) NOT DETECTED Richard F AustinAMYLASE AND LIPASE [...] mg/L Richard F AustinHELICOBACTER PYLORI, UREA BREATH [id number] 00:00:00* Test Item Value Reference Range Interpretation Comme nts HELICOBACTER PYLORI, UREA BR EATH TEST (test code = 70441-2) NOT DETECTED Richard F AustinAMYLASE AND LIPASE [...] mg/L Richard F AustinHELICOBACTER PYLORI, UREA BREATH [id number] 00:00:00* Test Item Value Reference Range Interpretation Comme nts HELICOBACTER PYLORI, UREA BR EATH TEST (test code = 28946-9) NOT DETECTED Richard F AustinAMYLASE AND LIPASE [...] mg/L Richard F AustinHELICOBACTER PYLORI, UREA BREATH [id number] 00:00:00* Test Item Value Reference Range Interpretation Comme nts HELICOBACTER PYLORI, UREA BR EATH TEST (test code = 37034-6) NOT DETECTED Richard F AustinAMYLASE AND LIPASE [ADDED]2024-08-25 00:00:00* Test Item Value Reference Range Interpretation Comme nts AMYLASE (test code = 1798-8) 26 U/L LIPASE (test code = 3040-3) 25 U/L Richard F AustinSED RATE BY SELVIN HAMILTON [ADDED]2024-08-25 00:00:00* Test Item Value Reference Range Interpretation Comme nts SED RATE BY SELVIN POSADA (test code = 4537-7) 2 mm/h Richard F AustinC-REACTIVE PROTEIN [ADDED]2024-08-25 00:00:00* Test Item Value Reference Range Interpretation Comme nts C-REACTIVE PROTEIN (test cod e = 1987-5) <3.0 mg/L Richard F AustinHELICOBACTER PYLORI, UREA BREATH [id number] 00:00:00* Test Item Value Reference Range Interpretation Comme nts HELICOBACTER PYLORI, UREA BR EATH TEST (test code = 64629-9) NOT DETECTED Richard F AustinAMYLASE AND LIPASE [ADDED]2024-08-25 00:00:00* Test Item Value Reference Range Interpretation Comme nts AMYLASE (test code = 1798-8) 26 U/L LIPASE (test code = 3040-3) 25 U/L Richard F AustinHEMOGLOBIN [id number] 00:00:00* Test Item Value Reference Range Interpretation Comme nts HEMOGLOBIN A1c (test code = 4548-4) 5.0 %oftotalHgb Richard F AustinLIPID [id number] 00:00:00* Test Item Value Reference Range Interpretation Comme nts CHOLESTEROL, TOTAL (test cod e = 2093-3) 183 mg/dL HDL CHOLESTEROL (test code = 2085-9) 41 mg/dL TRIGLYCERIDES (test code = 2571-8) 69 mg/dL LDL-CHOLESTEROL (test code = 05975-5) 126 mg/dL(calc) CHOL/HDLC RATIO (test code = 9830-1) 4.5 (calc) NON HDL CHOLESTEROL (test code = 23508-3) 142 mg/dL(calc) Richard [id number] 00:00:00* Test Item Value Reference Range Interpretation [...] cells/uL ABSOLUTE BAND NEUTROPHILS (test code = 57213-5) DNR cells/uL ABSOLUTE METAMYELOCYTES (blossom t code = 19981-6) DNR cells/uL ABSOLUTE MYELOCYTES (test code = 67358-6) DNR cells/uL ABSOLUTE PROMYELOCYTES (test code = 13144-4) DNR cells/uL ABSOLUTE LYMPHOCYTES (test code = 731-0) 2066 cells/uL ABSOLUTE MONOCYTES (test cod e = 742-7) 580 cells/uL ABSOLUTE EOSINOPHILS (test code = 711-2) 176 cells/uL ABSOLUTE BASOPHILS (test cod e = 704-7) 84 cells/uL ABSOLUTE BLASTS (test code = 46276-6) DNR cells/uL ABSOLUTE NUCLEATED RBC (test code = 97799-9) DNR cells/uL NEUTROPHILS (test code = 770-8) 65.4 % BAND NEUTROPHILS (test code = 764-1) DNR % METAMYELOCYTES (test code = 740-1) DNR % MYELOCYTES (test code = 749-2) DNR % PROMYELOCYTES (test code = 783-1) DNR % LYMPHOCYTES (test code = 736-9) 24.6 % REACTIVE LYMPHOCYTES (test code = 49947-1) DNR % MONOCYTES (test code = 5905-5) 6.9 % EOSINOPHILS (test code = 713-8) 2.1 % BASOPHILS (test code = 706-2) 1.0 % BLASTS (test code = 709-6) DNR % NUCLEATED RBC (test code = 71547-0) DNR /100WBC COMMENT(S) (test code = 8251-1) DNR Richard F IsrraelCOMPREHENSIVE METABOLIC [id number] 00:00:00* Test Item Value Reference Range Interpretation Comme nts GLUCOSE (test code = 2345-7) 91 mg/dL UREA NITROGEN (BUN) (test code = 3094-0) 14 mg/dL CREATININE (test code = 2160-0) 0.80 mg/dL EGFR (test code = 29617-3) 102 mL/min/1.73m2 BUN/CREATININE RATIO (test code = 3097-3) SEE NOTE: (calc) SODIUM (test code = 2951-2) 139 mmol/L POTASSIUM (test code = 2823-3) 4.4 mmol/L CHLORIDE (test code = 2075-0) 107 mmol/L CARBON DIOXIDE (test code = 8-9) 24 mmol/L CALCIUM (test code = 27040-1) 10.0 mg/dL PROTEIN, TOTAL (test code = 2885-2) 7.0 g/dL ALBUMIN (test code = 1751-7) 4.6 g/dL GLOBULIN (test code = 46581-0) 2.4 g/dL(calc) ALBUMIN/GLOBULIN RATIO (test code = 1759-0) 1.9 (calc) BILIRUBIN, TOTAL (test code = 1975-2) 0.6 mg/dL ALKALINE PHOSPHATASE (test code = 6768-6) 56 U/L AST (test code = 1920-8) 13 U/L ALT (test code = 1742-6) 13 U/L Richard ArcosHEMOGLOBIN [id number] 00:00:00* Test Item Value Reference Range Interpretation Comme annalisa HEMOGLOBIN A1c (test code = 4548-4) 5.0 %oftotalHgb Richard ArcosLIPID [id number] 00:00:00* Test Item Value Reference Range Interpretation Comme annalisa CHOLESTEROL, TOTAL (test cod e = 2093-3) 183 mg/dL HDL CHOLESTEROL (test code = 2085-9) 41 mg/dL TRIGLYCERIDES (test code = 2571-8) 69 mg/dL LDL-CHOLESTEROL (test code = 53344-9) 126 mg/dL(calc) CHOL/HDLC RATIO (test code = 9830-1) 4.5 (calc) NON HDL CHOLESTEROL (test code = 75821-0) 142 mg/dL(calc) Richard [id number] 00:00:00* Test Item Value Reference Range Interpretation [...] cells/uL ABSOLUTE BAND NEUTROPHILS (test code = 58837-5) DNR cells/uL ABSOLUTE METAMYELOCYTES (blossom t code = 39854-2) DNR cells/uL ABSOLUTE MYELOCYTES (test code = 42486-4) DNR cells/uL ABSOLUTE PROMYELOCYTES (test code = 51697-4) DNR cells/uL ABSOLUTE LYMPHOCYTES (test code = 731-0) 2066 cells/uL ABSOLUTE MONOCYTES (test cod e = 742-7) 580 cells/uL ABSOLUTE EOSINOPHILS (test code = 711-2) 176 cells/uL ABSOLUTE BASOPHILS (test cod e = 704-7) 84 cells/uL ABSOLUTE BLASTS (test code = 98405-1) DNR cells/uL ABSOLUTE NUCLEATED RBC (test code = 72100-9) DNR cells/uL NEUTROPHILS (test code = 770-8) 65.4 % BAND NEUTROPHILS (test code = 764-1) DNR % METAMYELOCYTES (test code = 740-1) DNR % MYELOCYTES (test code = 749-2) DNR % PROMYELOCYTES (test code = 783-1) DNR % LYMPHOCYTES (test code = 736-9) 24.6 % REACTIVE LYMPHOCYTES (test code = 63105-1) DNR % MONOCYTES (test code = 5905-5) 6.9 % EOSINOPHILS (test code = 713-8) 2.1 % BASOPHILS (test code = 706-2) 1.0 % BLASTS (test code = 709-6) DNR % NUCLEATED RBC (test code = 97467-8) DNR /100WBC COMMENT(S) (test code = 8251-1) DNR Richard ArcosCOMPREHENSIVE METABOLIC [id number] 00:00:00* Test Item Value Reference Range Interpretation Comme nts GLUCOSE (test code = 2345-7) 91 mg/dL UREA NITROGEN (BUN) (test code = 3094-0) 14 mg/dL CREATININE (test code = 2160-0) 0.80 mg/dL EGFR (test code = 86389-9) 102 mL/min/1.73m2 BUN/CREATININE RATIO (test code = 3097-3) SEE NOTE: (calc) SODIUM (test code = 2951-2) 139 mmol/L POTASSIUM (test code = 2823-3) 4.4 mmol/L CHLORIDE (test code = 2075-0) 107 mmol/L CARBON DIOXIDE (test code = 2027-9) 24 mmol/L CALCIUM (test code = 22048-9) 10.0 mg/dL PROTEIN, TOTAL (test code = 2885-2) 7.0 g/dL ALBUMIN (test code = 1751-7) 4.6 g/dL GLOBULIN (test code = 52520-8) 2.4 g/dL(calc) ALBUMIN/GLOBULIN RATIO (test code = 1759-0) 1.9 (calc) BILIRUBIN, TOTAL (test code = 1975-2) 0.6 mg/dL ALKALINE PHOSPHATASE (test code = 6768-6) 56 U/L AST (test code = 1920-8) 13 U/L ALT (test code = 1742-6) 13 U/L Richard ArcosHEMOGLOBIN [id number] 00:00:00* Test Item Value Reference Range Interpretation Comme annalisa HEMOGLOBIN A1c (test code = 4548-4) 5.0 %oftotalHgb Richard ArcosLIPID [id number] 00:00:00* Test Item Value Reference Range Interpretation Comme [facility] CHOLESTEROL, TOTAL (test cod e = 3-3) 183 mg/dL HDL CHOLESTEROL (test code = 2085-9) 41 mg/dL TRIGLYCERIDES (test code = 2571-8) 69 mg/dL LDL-CHOLESTEROL (test code = 76092-8) 126 mg/dL(calc) CHOL/HDLC RATIO (test code = 9830-1) 4.5 (calc) NON HDL CHOLESTEROL (test code = 82644-6) 142 mg/dL(calc) Richard [id number] 00:00:00* Test Item Value Reference Range Interpretation Comme [facility] TSH (test code = 3016-3) 1.17 mIU/L Richard ArcosCBC (INCLUDES DIFF/PLT)2024-07-11 00:00:00* Test Item Value Reference Range Interpretation Comme [facility] WHITE BLOOD CELL [...] cells/uL ABSOLUTE BAND NEUTROPHILS (test code = 00624-2) DNR cells/uL ABSOLUTE METAMYELOCYTES (blossom t code = 07046-6) DNR cells/uL ABSOLUTE MYELOCYTES (test code = 57689-5) DNR cells/uL ABSOLUTE PROMYELOCYTES (test code = 75235-7) DNR cells/uL ABSOLUTE LYMPHOCYTES (test code = 731-0) 2066 cells/uL ABSOLUTE MONOCYTES (test cod e = 742-7) 580 cells/uL ABSOLUTE EOSINOPHILS (test code = 711-2) 176 cells/uL ABSOLUTE BASOPHILS (test cod e = 704-7) 84 cells/uL ABSOLUTE BLASTS (test code = 80319-6) DNR cells/uL ABSOLUTE NUCLEATED RBC (test code = 78847-5) DNR cells/uL NEUTROPHILS (test code = 770-8) 65.4 % BAND NEUTROPHILS (test code = 764-1) DNR % METAMYELOCYTES (test code = 740-1) DNR % MYELOCYTES (test code = 749-2) DNR % PROMYELOCYTES (test code = 783-1) DNR % LYMPHOCYTES (test code = 736-9) 24.6 % REACTIVE LYMPHOCYTES (test code = 17954-3) DNR % MONOCYTES (test code = 5905-5) 6.9 % EOSINOPHILS (test code = 713-8) 2.1 % BASOPHILS (test code = 706-2) 1.0 % BLASTS (test code = 709-6) DNR % NUCLEATED RBC (test code = 35896-7) DNR /100WBC COMMENT(S) (test code = 8251-1) DNR Richard ArcosCOMPREHENSIVE METABOLIC [id number] 00:00:00* Test Item Value Reference Range Interpretation Comme nts GLUCOSE (test code = 2345-7) 91 mg/dL UREA NITROGEN (BUN) (test code = 3094-0) 14 mg/dL CREATININE (test code = 2160-0) 0.80 mg/dL EGFR (test code = 06248-1) 102 mL/min/1.73m2 BUN/CREATININE RATIO (test code = 3097-3) SEE NOTE: (calc) SODIUM (test code = 2951-2) 139 mmol/L POTASSIUM (test code = 2823-3) 4.4 mmol/L CHLORIDE (test code = 2075-0) 107 mmol/L CARBON DIOXIDE (test code = 2027-9) 24 mmol/L CALCIUM (test code = 81144-7) 10.0 mg/dL PROTEIN, TOTAL (test code = 2885-2) 7.0 g/dL ALBUMIN (test code = 1751-7) 4.6 g/dL GLOBULIN (test code = 49947-7) 2.4 g/dL(calc) ALBUMIN/GLOBULIN RATIO (test code = 1759-0) 1.9 (calc) BILIRUBIN, TOTAL (test code = 1975-2) 0.6 mg/dL ALKALINE PHOSPHATASE (test code = 6768-6) 56 U/L AST (test code = 1920-8) 13 U/L ALT (test code = 1742-6) 13 U/L Richard ArcosHEMOGLOBIN [id number] 00:00:00* Test Item Value Reference Range Interpretation Comme [facility] HEMOGLOBIN A1c (test code = 4548-4) 5.0 %oftotalHgb Richard ArcosLIPID [id number] 00:00:00* Test Item Value Reference Range Interpretation Comme [facility] CHOLESTEROL, TOTAL (test cod e = 3-3) 183 mg/dL HDL CHOLESTEROL (test code = 2085-9) 41 mg/dL TRIGLYCERIDES (test code = 2571-8) 69 mg/dL LDL-CHOLESTEROL (test code = 97237-7) 126 mg/dL(calc) CHOL/HDLC RATIO (test code = 9830-1) 4.5 (calc) NON HDL CHOLESTEROL (test code = 42259-2) 142 mg/dL(calc) Richard [id number] 00:00:00* Test Item Value Reference Range Interpretation Comme [facility] TSH (test code [...] cells/uL ABSOLUTE BAND NEUTROPHILS (test code = 15370-7) DNR cells/uL ABSOLUTE METAMYELOCYTES (blossom t code = 77670-7) DNR cells/uL ABSOLUTE MYELOCYTES (test code = 92083-0) DNR cells/uL ABSOLUTE PROMYELOCYTES (test code = 08017-5) DNR cells/uL ABSOLUTE LYMPHOCYTES (test code = 731-0) 2066 cells/uL ABSOLUTE MONOCYTES (test cod e = 742-7) 580 cells/uL ABSOLUTE EOSINOPHILS (test code = 711-2) 176 cells/uL ABSOLUTE BASOPHILS (test cod e = 704-7) 84 cells/uL ABSOLUTE BLASTS (test code = 78782-2) DNR cells/uL ABSOLUTE NUCLEATED RBC (test code = 75914-7) DNR cells/uL NEUTROPHILS (test code = 770-8) 65.4 % BAND NEUTROPHILS (test code = 764-1) DNR % METAMYELOCYTES (test code = 740-1) DNR % MYELOCYTES (test code = 749-2) DNR % PROMYELOCYTES (test code = 783-1) DNR % LYMPHOCYTES (test code = 736-9) 24.6 % REACTIVE LYMPHOCYTES (test code = 71958-4) DNR % MONOCYTES (test code = 5905-5) 6.9 % EOSINOPHILS (test code = 713-8) 2.1 % BASOPHILS (test code = 706-2) 1.0 % BLASTS (test code = 709-6) DNR % NUCLEATED RBC (test code = 63161-7) DNR /100WBC COMMENT(S) (test code = 8251-1) DNR Richard ArcosCOMPREHENSIVE METABOLIC [id number] 00:00:00* Test Item Value Reference Range Interpretation Comme nts GLUCOSE (test code = 2345-7) 91 mg/dL UREA NITROGEN (BUN) (test code = 3094-0) 14 mg/dL CREATININE (test code = 2160-0) 0.80 mg/dL EGFR (test code = 18759-8) 102 mL/min/1.73m2 BUN/CREATININE RATIO (test code = 3097-3) SEE NOTE: (calc) SODIUM (test code = 2951-2) 139 mmol/L POTASSIUM (test code = 2823-3) 4.4 mmol/L CHLORIDE (test code = 2075-0) 107 mmol/L CARBON DIOXIDE (test code = 2027-9) 24 mmol/L CALCIUM (test code = 41571-1) 10.0 mg/dL PROTEIN, TOTAL (test code = 2885-2) 7.0 g/dL ALBUMIN (test code = 1751-7) 4.6 g/dL GLOBULIN (test code = 28530-7) 2.4 g/dL(calc) ALBUMIN/GLOBULIN RATIO (test code = 1759-0) 1.9 (calc) BILIRUBIN, TOTAL (test code = 1975-2) 0.6 mg/dL ALKALINE PHOSPHATASE (test code = 6768-6) 56 U/L AST (test code = 1920-8) 13 U/L ALT (test code = 1742-6) 13 U/L Richard ArcosHEMOGLOBIN [id number] 00:00:00* Test Item Value Reference Range Interpretation Comme nts HEMOGLOBIN A1c (test code = 4548-4) 5.0 %oftotalHgb Richard ArcosLIPID [id number] 00:00:00* Test Item Value Reference Range Interpretation Comme nts CHOLESTEROL, TOTAL (test cod e = 2093-3) 183 mg/dL HDL CHOLESTEROL (test code = 2085-9) 41 mg/dL TRIGLYCERIDES (test code = 2571-8) 69 mg/dL LDL-CHOLESTEROL (test code = 38450-0) 126 mg/dL(calc) CHOL/HDLC RATIO (test code = 9830-1) 4.5 (calc) NON HDL CHOLESTEROL (test code = 52081-1) 142 mg/dL(calc) Richard [id number] 00:00:00* Test Item Value Reference Range Interpretation [...] cells/uL ABSOLUTE BAND NEUTROPHILS (test code = 53149-1) DNR cells/uL ABSOLUTE METAMYELOCYTES (blossom t code = 10948-1) DNR cells/uL ABSOLUTE MYELOCYTES (test code = 24383-4) DNR cells/uL ABSOLUTE PROMYELOCYTES (test code = 03174-6) DNR cells/uL ABSOLUTE LYMPHOCYTES (test code = 731-0) 2066 cells/uL ABSOLUTE MONOCYTES (test cod e = 742-7) 580 cells/uL ABSOLUTE EOSINOPHILS (test code = 711-2) 176 cells/uL ABSOLUTE BASOPHILS (test cod e = 704-7) 84 cells/uL ABSOLUTE BLASTS (test code = 24212-3) DNR cells/uL ABSOLUTE NUCLEATED RBC (test code = 27535-5) DNR cells/uL NEUTROPHILS (test code = 770-8) 65.4 % BAND NEUTROPHILS (test code = 764-1) DNR % METAMYELOCYTES (test code = 740-1) DNR % MYELOCYTES (test code = 749-2) DNR % PROMYELOCYTES (test code = 783-1) DNR % LYMPHOCYTES (test code = 736-9) 24.6 % REACTIVE LYMPHOCYTES (test code = 12187-1) DNR % MONOCYTES (test code = 5905-5) 6.9 % EOSINOPHILS (test code = 713-8) 2.1 % BASOPHILS (test code = 706-2) 1.0 % BLASTS (test code = 709-6) DNR % NUCLEATED RBC (test code = 60271-7) DNR /100WBC COMMENT(S) (test code = 8251-1) DNR Richard ArcosCOMPREHENSIVE METABOLIC [id number] 00:00:00* Test Item Value Reference Range Interpretation Comme nts GLUCOSE (test code = 2345-7) 91 mg/dL UREA NITROGEN (BUN) (test code = 3094-0) 14 mg/dL CREATININE (test code = 2160-0) 0.80 mg/dL EGFR (test code = 31464-0) 102 mL/min/1.73m2 BUN/CREATININE RATIO (test code = 3097-3) SEE NOTE: (calc) SODIUM (test code = 2951-2) 139 mmol/L POTASSIUM (test code = 2823-3) 4.4 mmol/L CHLORIDE (test code = 2075-0) 107 mmol/L CARBON DIOXIDE (test code = 8-9) 24 mmol/L CALCIUM (test code = 69942-5) 10.0 mg/dL PROTEIN, TOTAL (test code = 2885-2) 7.0 g/dL ALBUMIN (test code = 1751-7) 4.6 g/dL GLOBULIN (test code = 00330-2) 2.4 g/dL(calc) ALBUMIN/GLOBULIN RATIO (test code = 1759-0) 1.9 (calc) BILIRUBIN, TOTAL (test code = 1975-2) 0.6 mg/dL ALKALINE PHOSPHATASE (test code = 6768-6) 56 U/L AST (test code = 1920-8) 13 U/L ALT (test code = 1742-6) 13 U/L Richard ArcosHEMOGLOBIN [id number] 00:00:00* Test Item Value Reference Range Interpretation Comme nts HEMOGLOBIN A1c (test code = 4548-4) 5.0 %oftotalHgb Richard ArcosLIPID [id number] 00:00:00* Test Item Value Reference Range Interpretation Comme annalisa CHOLESTEROL, TOTAL (test cod e = 2093-3) 183 mg/dL HDL CHOLESTEROL (test code = 2085-9) 41 mg/dL TRIGLYCERIDES (test code = 2571-8) 69 mg/dL LDL-CHOLESTEROL (test code = 38818-6) 126 mg/dL(calc) CHOL/HDLC RATIO (test code = 9830-1) 4.5 (calc) NON HDL CHOLESTEROL (test code = 01499-9) 142 mg/dL(calc) Richard [id number] 00:00:00* Test Item Value Reference Range Interpretation [...] cells/uL ABSOLUTE BAND NEUTROPHILS (test code = 93031-2) DNR cells/uL ABSOLUTE METAMYELOCYTES (blossom t code = 85069-3) DNR cells/uL ABSOLUTE MYELOCYTES (test code = 93600-7) DNR cells/uL ABSOLUTE PROMYELOCYTES (test code = 04531-2) DNR cells/uL ABSOLUTE LYMPHOCYTES (test code = 731-0) 2066 cells/uL ABSOLUTE MONOCYTES (test cod e = 742-7) 580 cells/uL ABSOLUTE EOSINOPHILS (test code = 711-2) 176 cells/uL ABSOLUTE BASOPHILS (test cod e = 704-7) 84 cells/uL ABSOLUTE BLASTS (test code = 33878-1) DNR cells/uL ABSOLUTE NUCLEATED RBC (test code = 25629-7) DNR cells/uL NEUTROPHILS (test code = 770-8) 65.4 % BAND NEUTROPHILS (test code = 764-1) DNR % METAMYELOCYTES (test code = 740-1) DNR % MYELOCYTES (test code = 749-2) DNR % PROMYELOCYTES (test code = 783-1) DNR % LYMPHOCYTES (test code = 736-9) 24.6 % REACTIVE LYMPHOCYTES (test code = 01823-4) DNR % MONOCYTES (test code = 5905-5) 6.9 % EOSINOPHILS (test code = 713-8) 2.1 % BASOPHILS (test code = 706-2) 1.0 % BLASTS (test code = 709-6) DNR % NUCLEATED RBC (test code = 09382-5) DNR /100WBC COMMENT(S) (test code = 8251-1) DNR Richard ArcosCOMPREHENSIVE METABOLIC [id number] 00:00:00* Test Item Value Reference Range Interpretation Comme nts GLUCOSE (test code = 2345-7) 91 mg/dL UREA NITROGEN (BUN) (test code = 3094-0) 14 mg/dL CREATININE (test code = 2160-0) 0.80 mg/dL EGFR (test code = 38869-8) 102 mL/min/1.73m2 BUN/CREATININE RATIO (test code = 3097-3) SEE NOTE: (calc) SODIUM (test code = 2951-2) 139 mmol/L POTASSIUM (test code = 2823-3) 4.4 mmol/L CHLORIDE (test code = 2075-0) 107 mmol/L CARBON DIOXIDE (test code = 8-9) 24 mmol/L CALCIUM (test code = 03038-3) 10.0 mg/dL PROTEIN, TOTAL (test code = 2885-2) 7.0 g/dL ALBUMIN (test code = 1751-7) 4.6 g/dL GLOBULIN (test code = 72327-4) 2.4 g/dL(calc) ALBUMIN/GLOBULIN RATIO (test code = 1759-0) 1.9 (calc) BILIRUBIN, TOTAL (test code = 1975-2) 0.6 mg/dL ALKALINE PHOSPHATASE (test code = 6768-6) 56 U/L AST (test code = 1920-8) 13 U/L ALT (test code = 1742-6) 13 U/L Richard ArcosHEMOGLOBIN [id number] 00:00:00* Test Item Value Reference Range Interpretation Comme annalisa HEMOGLOBIN A1c (test code = 4548-4) 5.0 %oftotalHgb Richard ArcosLIPID [id number] 00:00:00* Test Item Value Reference Range Interpretation Comme annalisa CHOLESTEROL, TOTAL (test cod e = 2093-3) 183 mg/dL HDL CHOLESTEROL (test code = 2085-9) 41 mg/dL TRIGLYCERIDES (test code = 2571-8) 69 mg/dL LDL-CHOLESTEROL (test code = 39488-6) 126 mg/dL(calc) CHOL/HDLC RATIO (test code = 9830-1) 4.5 (calc) NON HDL CHOLESTEROL (test code = 37081-9) 142 mg/dL(calc) Richard [id number] 00:00:00* Test Item Value Reference Range Interpretation [...] cells/uL ABSOLUTE BAND NEUTROPHILS (test code = 96330-6) DNR cells/uL ABSOLUTE METAMYELOCYTES (blossom t code = 25012-4) DNR cells/uL ABSOLUTE MYELOCYTES (test code = 29158-0) DNR cells/uL ABSOLUTE PROMYELOCYTES (test code = 74049-2) DNR cells/uL ABSOLUTE LYMPHOCYTES (test code = 731-0) 2066 cells/uL ABSOLUTE MONOCYTES (test cod e = 742-7) 580 cells/uL ABSOLUTE EOSINOPHILS (test code = 711-2) 176 cells/uL ABSOLUTE BASOPHILS (test cod e = 704-7) 84 cells/uL ABSOLUTE BLASTS (test code = 94464-6) DNR cells/uL ABSOLUTE NUCLEATED RBC (test code = 07830-3) DNR cells/uL NEUTROPHILS (test code = 770-8) 65.4 % BAND NEUTROPHILS (test code = 764-1) DNR % METAMYELOCYTES (test code = 740-1) DNR % MYELOCYTES (test code = 749-2) DNR % PROMYELOCYTES (test code = 783-1) DNR % LYMPHOCYTES (test code = 736-9) 24.6 % REACTIVE LYMPHOCYTES (test code = 91496-5) DNR % MONOCYTES (test code = 5905-5) 6.9 % EOSINOPHILS (test code = 713-8) 2.1 % BASOPHILS (test code = 706-2) 1.0 % BLASTS (test code = 709-6) DNR % NUCLEATED RBC (test code = 31311-8) DNR /100WBC COMMENT(S) (test code = 8251-1) DNR Richard Carrillo IsrraelCOMPREHENSIVE METABOLIC [id number] 00:00:00* Test Item Value Reference Range Interpretation Comme nts GLUCOSE (test code = 2345-7) 91 mg/dL UREA NITROGEN (BUN) (test code = 3094-0) 14 mg/dL CREATININE (test code = 2160-0) 0.80 mg/dL EGFR (test code = 09431-5) 102 mL/min/1.73m2 BUN/CREATININE RATIO (test code = 3097-3) SEE NOTE: (calc) SODIUM (test code = 2951-2) 139 mmol/L POTASSIUM (test code = 2823-3) 4.4 mmol/L CHLORIDE (test code = 5-0) 107 mmol/L CARBON DIOXIDE (test code = 2027-9) 24 mmol/L CALCIUM (test code = 97696-8) 10.0 mg/dL PROTEIN, TOTAL (test code = 2885-2) 7.0 g/dL ALBUMIN (test code = 1751-7) 4.6 g/dL GLOBULIN (test code = 52048-1) 2.4 g/dL(calc) ALBUMIN/GLOBULIN RATIO (test code = 1759-0) 1.9 (calc) BILIRUBIN, TOTAL (test code = 1974-2) 0.6 mg/dL ALKALINE PHOSPHATASE (test code = 6768-6) 56 U/L AST (test code = 1920-8) 13 U/L ALT (test code = 1742-6) 13 U/L Richard ArcosHEMOGLOBIN [id number] 00:00:00* Test Item Value Reference Range Interpretation Comme [facility] HEMOGLOBIN A1c (test code = 4548-4) 5.0 %oftotalHgb Richard ArcosLIPID [id number] 00:00:00* Test Item Value Reference Range Interpretation Comme [facility] CHOLESTEROL, TOTAL (test cod e = 3-3) 183 mg/dL HDL CHOLESTEROL (test code = 2084-9) 41 mg/dL TRIGLYCERIDES (test code = 2571-8) 69 mg/dL LDL-CHOLESTEROL (test code = 14681-2) 126 mg/dL(calc) CHOL/HDLC RATIO (test code = 9830-1) 4.5 (calc) NON HDL CHOLESTEROL (test code = 75157-9) 142 mg/dL(calc) Richard [id number] 00:00:00* Test Item Value Reference Range Interpretation Comme [facility] TSH (test code = 3016-3) 1.17 mIU/L Richard ArcosCBC (INCLUDES DIFF/PLT)2024-07-11 00:00:00* Test Item Value Reference Range Interpretation Comme [facility] WHITE BLOOD CELL [...] cells/uL ABSOLUTE BAND NEUTROPHILS (test code = 58457-9) DNR cells/uL ABSOLUTE METAMYELOCYTES (blossom t code = 06346-9) DNR cells/uL ABSOLUTE MYELOCYTES (test code = 68583-7) DNR cells/uL ABSOLUTE PROMYELOCYTES (test code = 75391-7) DNR cells/uL ABSOLUTE LYMPHOCYTES (test code = 731-0) 2066 cells/uL ABSOLUTE MONOCYTES (test cod e = 742-7) 580 cells/uL ABSOLUTE EOSINOPHILS (test code = 711-2) 176 cells/uL ABSOLUTE BASOPHILS (test cod e = 704-7) 84 cells/uL ABSOLUTE BLASTS (test code = 13690-6) DNR cells/uL ABSOLUTE NUCLEATED RBC (test code = 59556-8) DNR cells/uL NEUTROPHILS (test code = 770-8) 65.4 % BAND NEUTROPHILS (test code = 764-1) DNR % METAMYELOCYTES (test code = 740-1) DNR % MYELOCYTES (test code = 749-2) DNR % PROMYELOCYTES (test code = 783-1) DNR % LYMPHOCYTES (test code = 736-9) 24.6 % REACTIVE LYMPHOCYTES (test code = 66943-2) DNR % MONOCYTES (test code = 5905-5) 6.9 % EOSINOPHILS (test code = 713-8) 2.1 % BASOPHILS (test code = 706-2) 1.0 % BLASTS (test code = 709-6) DNR % NUCLEATED RBC (test code = 68981-6) DNR /100WBC COMMENT(S) (test code = 8251-1) DNR Richard ArcosCBC (INCLUDES DIFF/PLT)2024-07-11 00:00:00* Test Item [...] cells/uL ABSOLUTE BAND NEUTROPHILS (test code = 02951-6) DNR cells/uL ABSOLUTE METAMYELOCYTES (blossom t code = 36411-9) DNR cells/uL ABSOLUTE MYELOCYTES (test code = 15464-5) DNR cells/uL ABSOLUTE PROMYELOCYTES (test code = 56774-9) DNR cells/uL ABSOLUTE LYMPHOCYTES (test code = 731-0) 2066 cells/uL ABSOLUTE MONOCYTES (test cod e = 742-7) 580 cells/uL ABSOLUTE EOSINOPHILS (test code = 711-2) 176 cells/uL ABSOLUTE BASOPHILS (test cod e = 704-7) 84 cells/uL ABSOLUTE BLASTS (test code = 98045-7) DNR cells/uL ABSOLUTE NUCLEATED RBC (test code = 07482-9) DNR cells/uL NEUTROPHILS (test code = 770-8) 65.4 % BAND NEUTROPHILS (test code = 764-1) DNR % METAMYELOCYTES (test code = 740-1) DNR % MYELOCYTES (test code = 749-2) DNR % PROMYELOCYTES (test code = 783-1) DNR % LYMPHOCYTES (test code = 736-9) 24.6 % REACTIVE LYMPHOCYTES (test code = 40552-5) DNR % MONOCYTES (test code = 5905-5) 6.9 % EOSINOPHILS (test code = 713-8) 2.1 % BASOPHILS (test code = 706-2) 1.0 % BLASTS (test code = 709-6) DNR % NUCLEATED RBC (test code = 52836-7) DNR /100WBC COMMENT(S) (test code = 8251-1) DNR Richard Carrillo AustinCOMPREHENSIVE METABOLIC [id number] 00:00:00* Test Item Value Reference Range Interpretation Comme nts GLUCOSE (test code = 2345-7) 91 mg/dL UREA NITROGEN (BUN) (test code = 3094-0) 14 mg/dL CREATININE (test code = 2160-0) 0.80 mg/dL EGFR (test code = 51025-5) 102 mL/min/1.73m2 BUN/CREATININE RATIO (test code = 3097-3) SEE NOTE: (calc) SODIUM (test code = 2951-2) 139 mmol/L POTASSIUM (test code = 2823-3) 4.4 mmol/L CHLORIDE (test code = 2075-0) 107 mmol/L CARBON DIOXIDE (test code = 2027-9) 24 mmol/L CALCIUM (test code = 81488-9) 10.0 mg/dL PROTEIN, TOTAL (test code = 2885-2) 7.0 g/dL ALBUMIN (test code = 1751-7) 4.6 g/dL GLOBULIN (test code = 30482-6) 2.4 g/dL(calc) ALBUMIN/GLOBULIN RATIO (test code = 1759-0) 1.9 (calc) BILIRUBIN, TOTAL (test code = 1975-2) 0.6 mg/dL ALKALINE PHOSPHATASE (test code = 6768-6) 56 U/L AST (test code = 1920-8) 13 U/L ALT (test code = 1742-6) 13 U/L [facility]illo [facility] [id number] 00:00:00* Test Item Value Reference Range Interpretation Comme nts GLUCOSE (test code = 2345-7) 91 mg/dL UREA NITROGEN (BUN) (test code = 3094-0) 14 mg/dL CREATININE (test code = 2160-0) 0.80 mg/dL EGFR (test code = 21819-8) 102 mL/min/1.73m2 BUN/CREATININE RATIO (test code = 3097-3) SEE NOTE: (calc) SODIUM (test code = 2951-2) 139 mmol/L POTASSIUM (test code = 2823-3) 4.4 mmol/L CHLORIDE (test code = 2075-0) 107 mmol/L CARBON DIOXIDE (test code = 2027-9) 24 mmol/L CALCIUM (test code = 40124-0) 10.0 mg/dL PROTEIN, TOTAL (test code = 2885-2) 7.0 g/dL ALBUMIN (test code = 1751-7) 4.6 g/dL GLOBULIN (test code = 36591-4) 2.4 g/dL(calc) ALBUMIN/GLOBULIN RATIO (test code = 1759-0) 1.9 (calc) BILIRUBIN, TOTAL (test code = 1975-2) 0.6 mg/dL ALKALINE PHOSPHATASE (test code = 6768-6) 56 U/L AST (test code = 1920-8) 13 U/L ALT (test code = 1742-6) 13 U/L Richard ArcosHEMOGLOBIN [id number] 00:00:00* Test Item Value Reference Range Interpretation Comme [facility] HEMOGLOBIN A1c (test code = 4548-4) 5.0 %oftotalHgb Richard Carrillo AustinLIPID [id number] 00:00:00* Test Item Value Reference Range Interpretation Comme nts CHOLESTEROL, TOTAL (test cod e = 2093-3) 183 mg/dL HDL CHOLESTEROL (test code = 5-9) 41 mg/dL TRIGLYCERIDES (test code = 2571-8) 69 mg/dL LDL-CHOLESTEROL (test code = 79964-9) 126 mg/dL(calc) CHOL/HDLC RATIO (test code = 9830-1) 4.5 (calc) NON HDL CHOLESTEROL (test code = 15260-4) 142 mg/dL(calc) Richard Carrillo [id number] 00:00:00* Test Item Value Reference Range Interpretation Comme nts TSH (test code = 3016-3) 1.17 mIU/L Richard Carrillo AustinHEMOGLOBIN [id number] 00:00:00* Test Item Value Reference Range Interpretation Comme [facility] HEMOGLOBIN A1c (test [...] cells/uL ABSOLUTE BAND NEUTROPHILS (test code = 25209-5) DNR cells/uL ABSOLUTE METAMYELOCYTES (blossom t code = 34312-2) DNR cells/uL ABSOLUTE MYELOCYTES (test code = 92034-1) DNR cells/uL ABSOLUTE PROMYELOCYTES (test code = 78325-4) DNR cells/uL ABSOLUTE LYMPHOCYTES (test code = 731-0) 2066 cells/uL ABSOLUTE MONOCYTES (test cod e = 742-7) 580 cells/uL ABSOLUTE EOSINOPHILS (test code = 711-2) 176 cells/uL ABSOLUTE BASOPHILS (test cod e = 704-7) 84 cells/uL ABSOLUTE BLASTS (test code = 33627-3) DNR cells/uL ABSOLUTE NUCLEATED RBC (test code = 26903-1) DNR cells/uL NEUTROPHILS (test code = 770-8) 65.4 % BAND NEUTROPHILS (test code = 764-1) DNR % METAMYELOCYTES (test code = 740-1) DNR % MYELOCYTES (test code = 749-2) DNR % PROMYELOCYTES (test code = 783-1) DNR % LYMPHOCYTES (test code = 736-9) 24.6 % REACTIVE LYMPHOCYTES (test code = 45839-5) DNR % MONOCYTES (test code = 5905-5) 6.9 % EOSINOPHILS (test code = 713-8) 2.1 % BASOPHILS (test code = 706-2) 1.0 % BLASTS (test code = 709-6) DNR % NUCLEATED RBC (test code = 64165-7) DNR /100WBC COMMENT(S) (test code = 8251-1) DNR Richard ArcosLIPID [id number] 00:00:00* Test Item Value Reference Range Interpretation Comme nts CHOLESTEROL, TOTAL (test cod e = 2093-3) 183 mg/dL HDL CHOLESTEROL (test code = 2085-9) 41 mg/dL TRIGLYCERIDES (test code = 2571-8) 69 mg/dL LDL-CHOLESTEROL (test code = 19373-1) 126 mg/dL(calc) CHOL/HDLC RATIO (test code = 9830-1) 4.5 (calc) NON HDL CHOLESTEROL (test code = 41277-7) 142 mg/dL(calc) Richard ArcosCOMPREHENSIVE METABOLIC [id number] 00:00:00* Test Item Value Reference Range Interpretation Comme nts GLUCOSE (test code = 2345-7) 91 mg/dL UREA NITROGEN (BUN) (test code = 3094-0) 14 mg/dL CREATININE (test code = 2160-0) 0.80 mg/dL EGFR (test code = 76150-6) 102 mL/min/1.73m2 BUN/CREATININE RATIO (test code = 3097-3) SEE NOTE: (calc) SODIUM (test code = 2951-2) 139 mmol/L POTASSIUM (test code = 2823-3) 4.4 mmol/L CHLORIDE (test code = 2075-0) 107 mmol/L CARBON DIOXIDE (test code = 8-9) 24 mmol/L CALCIUM (test code = 35050-6) 10.0 mg/dL PROTEIN, TOTAL (test code = 2885-2) 7.0 g/dL ALBUMIN (test code = 1751-7) 4.6 g/dL GLOBULIN (test code = 09289-1) 2.4 g/dL(calc) ALBUMIN/GLOBULIN RATIO (test code = 1759-0) 1.9 (calc) BILIRUBIN, TOTAL (test code = 1975-2) 0.6 mg/dL ALKALINE PHOSPHATASE (test code = 6768-6) 56 U/L AST (test code = 1920-8) 13 U/L ALT (test code = 1742-6) 13 U/L Richard ArcosHEMOGLOBIN [id number] 00:00:00* Test Item Value Reference Range Interpretation Comme annalisa HEMOGLOBIN A1c (test code = 4548-4) 5.0 %oftotalHgb Richard Carrillo ShingletownLIPID [id number] 00:00:00* Test Item Value Reference Range Interpretation Comme annalisa CHOLESTEROL, TOTAL (test cod e = 2093-3) 183 mg/dL HDL CHOLESTEROL (test code = 2085-9) 41 mg/dL TRIGLYCERIDES (test code = 2571-8) 69 mg/dL LDL-CHOLESTEROL (test code = 95164-7) 126 mg/dL(calc) CHOL/HDLC RATIO (test code = 9830-1) 4.5 (calc) NON HDL CHOLESTEROL (test code = 08943-3) 142 mg/dL(calc) Richard Carrillo [id number] 00:00:00* Test Item Value Reference Range Interpretation Comme annalisa TSH (test code = 3016-3) 1.17 mIU/L Richard Carrillo [id number] 00:00:00* Test Item Value Reference Range Interpretation Comme [facility] TSH (test code = 3016-3) 1.17 mIU/L Richard aCrrillo ShingletownCBC (INCLUDES DIFF/PLT)2024-07-11 00:00:00* Test Item Value Reference Range Interpretation Comme [facility] WHITE BLOOD CELL [...] cells/uL ABSOLUTE BAND NEUTROPHILS (test code = 78539-2) DNR cells/uL ABSOLUTE METAMYELOCYTES (blossom t code = 09816-8) DNR cells/uL ABSOLUTE MYELOCYTES (test code = 50150-0) DNR cells/uL ABSOLUTE PROMYELOCYTES (test code = 84716-5) DNR cells/uL ABSOLUTE LYMPHOCYTES (test code = 731-0) 2066 cells/uL ABSOLUTE MONOCYTES (test cod e = 742-7) 580 cells/uL ABSOLUTE EOSINOPHILS (test code = 711-2) 176 cells/uL ABSOLUTE BASOPHILS (test cod e = 704-7) 84 cells/uL ABSOLUTE BLASTS (test code = 37676-1) DNR cells/uL ABSOLUTE NUCLEATED RBC (test code = 05134-5) DNR cells/uL NEUTROPHILS (test code = 770-8) 65.4 % BAND NEUTROPHILS (test code = 764-1) DNR % METAMYELOCYTES (test code = 740-1) DNR % MYELOCYTES (test code = 749-2) DNR % PROMYELOCYTES (test code = 783-1) DNR % LYMPHOCYTES (test code = 736-9) 24.6 % REACTIVE LYMPHOCYTES (test code = 80368-1) DNR % MONOCYTES (test code = 5905-5) 6.9 % EOSINOPHILS (test code = 713-8) 2.1 % BASOPHILS (test code = 706-2) 1.0 % BLASTS (test code = 709-6) DNR % NUCLEATED RBC (test code = 07340-9) DNR /100WBC COMMENT(S) (test code = 8251-1) DNR Richard F IsrraelCOMPREHENSIVE METABOLIC [id number] 00:00:00* Test Item Value Reference Range Interpretation Comme nts GLUCOSE (test code = 2345-7) 91 mg/dL UREA NITROGEN (BUN) (test code = 3094-0) 14 mg/dL CREATININE (test code = 2160-0) 0.80 mg/dL EGFR (test code = 45981-4) 102 mL/min/1.73m2 BUN/CREATININE RATIO (test code = 3097-3) SEE NOTE: (calc) SODIUM (test code = 2951-2) 139 mmol/L POTASSIUM (test code = 2823-3) 4.4 mmol/L CHLORIDE (test code = 2075-0) 107 mmol/L CARBON DIOXIDE (test code = 2027-9) 24 mmol/L CALCIUM (test code = 55984-1) 10.0 mg/dL PROTEIN, TOTAL (test code = 2885-2) 7.0 g/dL ALBUMIN (test code = 1751-7) 4.6 g/dL GLOBULIN (test code = 55500-7) 2.4 g/dL(calc) ALBUMIN/GLOBULIN RATIO (test code = 1759-0) 1.9 (calc) BILIRUBIN, TOTAL (test code = 1975-2) 0.6 mg/dL ALKALINE PHOSPHATASE (test code = 6768-6) 56 U/L AST (test code = 1920-8) 13 U/L ALT (test code = 1742-6) 13 U/L Richard ArcosHEMOGLOBIN [id number] 00:00:00* Test Item Value Reference Range Interpretation Comme annalisa HEMOGLOBIN A1c (test code = 4548-4) 5.0 %oftotalHgb Richard ArcosLIPID [id number] 00:00:00* Test Item Value Reference Range Interpretation Comme annalisa CHOLESTEROL, TOTAL (test cod e = 2093-3) 183 mg/dL HDL CHOLESTEROL (test code = 2085-9) 41 mg/dL TRIGLYCERIDES (test code = 2571-8) 69 mg/dL LDL-CHOLESTEROL (test code = 29488-2) 126 mg/dL(calc) CHOL/HDLC RATIO (test code = 9830-1) 4.5 (calc) NON HDL CHOLESTEROL (test code = 91097-1) 142 mg/dL(calc) Richard [id number] 00:00:00* Test Item Value Reference Range Interpretation [...] cells/uL ABSOLUTE BAND NEUTROPHILS (test code = 48247-8) DNR cells/uL ABSOLUTE METAMYELOCYTES (blossom t code = 46599-7) DNR cells/uL ABSOLUTE MYELOCYTES (test code = 60100-7) DNR cells/uL ABSOLUTE PROMYELOCYTES (test code = 66518-4) DNR cells/uL ABSOLUTE LYMPHOCYTES (test code = 731-0) 2066 cells/uL ABSOLUTE MONOCYTES (test cod e = 742-7) 580 cells/uL ABSOLUTE EOSINOPHILS (test code = 711-2) 176 cells/uL ABSOLUTE BASOPHILS (test cod e = 704-7) 84 cells/uL ABSOLUTE BLASTS (test code = 30630-5) DNR cells/uL ABSOLUTE NUCLEATED RBC (test code = 28672-1) DNR cells/uL NEUTROPHILS (test code = 770-8) 65.4 % BAND NEUTROPHILS (test code = 764-1) DNR % METAMYELOCYTES (test code = 740-1) DNR % MYELOCYTES (test code = 749-2) DNR % PROMYELOCYTES (test code = 783-1) DNR % LYMPHOCYTES (test code = 736-9) 24.6 % REACTIVE LYMPHOCYTES (test code = 24507-3) DNR % MONOCYTES (test code = 5905-5) 6.9 % EOSINOPHILS (test code = 713-8) 2.1 % BASOPHILS (test code = 706-2) 1.0 % BLASTS (test code = 709-6) DNR % NUCLEATED RBC (test code = 63072-1) DNR /100WBC COMMENT(S) (test code = 8251-1) DNR Richard F AustinCOMPREHENSIVE METABOLIC [id number] 00:00:00* Test Item Value Reference Range Interpretation Comme nts GLUCOSE (test code = 2345-7) 91 mg/dL UREA NITROGEN (BUN) (test code = 3094-0) 14 mg/dL CREATININE (test code = 2160-0) 0.80 mg/dL EGFR (test code = 51845-8) 102 mL/min/1.73m2 BUN/CREATININE RATIO (test code = 3097-3) SEE NOTE: (calc) SODIUM (test code = 2951-2) 139 mmol/L POTASSIUM (test code = 2823-3) 4.4 mmol/L CHLORIDE (test code = 2075-0) 107 mmol/L CARBON DIOXIDE (test code = 8-9) 24 mmol/L CALCIUM (test code = 40439-5) 10.0 mg/dL PROTEIN, TOTAL (test code = 2885-2) 7.0 g/dL ALBUMIN (test code = 1751-7) 4.6 g/dL GLOBULIN (test code = 99810-7) 2.4 g/dL(calc) ALBUMIN/GLOBULIN RATIO (test code = 1759-0) 1.9 (calc) BILIRUBIN, TOTAL (test code = 1975-2) 0.6 mg/dL ALKALINE PHOSPHATASE (test code = 6768-6) 56 U/L AST (test code = 1920-8) 13 U/L ALT (test code = 1742-6) 13 U/L Richard Carrillo [place]ingletownPOCT [id number] 20:17:00* Test Item Value Reference Range Interpretation Comme nts POCT PREG (test code = 1605) Negative On board controls acceptable with C Line (test code = 3574) Yes POCT PREG LOT # (test code = 3575) POCT PREG TEST DATE ( test code = 3576) [facility] [id number] 20:17:00* Test Item Value Reference Range Interpretation Comme nts POCT PREG (test code = 1605) Negative On board controls acceptable with C Line (test code = 3574) Yes POCT PREG LOT # (test code = 3575) POCT PREG TEST DATE ( test code = 3576) [facility], THIRD [id number] 05:52:53* Test Item Value Reference Range Interpretation Comme nts TSH, THIRD GENERATION (test code = 2821) 1.370 UIU/ML 0.400-4.100 COMPREHENSIVE METABOLIC [id number] 03:38:28* Test Item Value Reference Range Interpretation Comme nts GLUCOSE (test code = 2217) 95 MG/DL 70-99 BUN (test code = 2207) 10 MG/DL 6-20 CREATININE (test code = 2213) 0.95 MG/DL 0.60-1.30 eGFR (2020 CKD-EPI) (test code = 59897) 84 ML/MIN/1.73 >60 CALC BUN/CREAT (test code = 2234) 11 RATIO 6-28 SODIUM (test code = 2230) 143 MEQ/L 133-146 POTASSIUM (test code = 8) 4.4 MEQ/L 3.5-5.4 CHLORIDE (test code = 2214) 106 MEQ/L 95-107 CARBON DIOXIDE (test code = 2205) 26 MEQ/L 19-31 CALCIUM (test code = 2208) 9.9 MG/DL 8.5-10.5 PROTEIN, TOTAL (test code = 2228) 7.1 G/DL 6.1-8.3 ALBUMIN (test code = 2200) 4.7 G/DL 3.5-5.2 CALC GLOBULIN (test code = 2239) 2.4 G/DL 1.9-3.7 CALC A/G RATIO (test [...] 14 U/L 9-40 ALT (test code = 221) 9 U/L 5-40 LIPID [id number] 03:38:28* Test Item Value Reference Range Interpretation Comme nts CHOLESTEROL (test code = 2210) 204 MG/DL <200 H TRIGLYCERIDES (test code = 2232) 91 MG/DL <150 HDL CHOLESTEROL (test code = 2220) 36 MG/DL >39 L CALC LDL CHOL (test code = 2237) 148 MG/DL <100 H NOTE: CALCULATED LDL IS BASED ON JOSE RAMON-AGEE METHOD WHICHINCLUDES ADJUSTABLE TRIGLYCERIDE:VLDL CHOLESTEROL RATIO.THIS FACTOR VARIES BY MEASURED TRIGLYCERIDE AND NON-HDLCHOLESTEROL CONCENTRATIONS WITH INCREASED CALCULATED LDL SEENIN HIGHER TRIGLYCERIDE OR LOWER NON-HDL SPECIMENS. FOR MOREINFORMATION, SEE CLIENT ANNOUNCEMENT AT [email or web address] RISK RATIO LDL/HDL (test code = 2238) 4.11 RATIO <3.22 H HEMOGLOBIN [id number] 02:52:16* Test Item Value Reference Range Interpretation Comme nts HEMOGLOBIN A1c (test code = 94191) 4.9 % 4.2-5.6 UNLESS OTHERWISE INDICATED, ALL TESTING PERFORMED AT [facility] [address] [place] [address] DIRECTOR ASSET: FAHAD RUANO M.D. CLIA NUMBER [id number] [facility] [place]. [id number] CBC W/AUTO DIFF WITH [id number] 01:58:08* Test Item Value Reference Range Interpretation [...] = 1065) 0.0 /100 WBC'S See_Comment [Automated [employer] ge] The system which generated this result [...] 0.00-0.10 ABS NUCLEATED RBCS (test code = 18145) 0.00 K/UL 0.00-0.11 LIPID [id number] 00:00:00* Test Item Value Reference Range Interpretation Comme nts CHOLESTEROL (test code = 2210) 204 MG/DL TRIGLYCERIDES (test code = 2232) 91 MG/DL HDL CHOLESTEROL (test code = 2220) 36 MG/DL CALC LDL CHOL (test code = 2237) 148 MG/DL RISK RATIO LDL/HDL (test cod e = 2238) 4.11 RATIO Richard ArcosTSH, THIRD [id number] 00:00:00* Test Item Value Reference Range Interpretation Comme annalisa TSH, THIRD GENERATION (test code = 2821) 1.370 UIU/ML Richard ArcosHEMOGLOBIN [id number] 00:00:00* Test Item Value Reference Range Interpretation Comme nts HEMOGLOBIN A1c (test code = 33941) 4.9 % Richard ArcosCBC W/AUTO [id number] 00:00:00* Test Item Value Reference Range Interpretation [...] ABS NUCLEATED RBCS (test cod e = 52494) 0.00 K/UL Richard Carrillo AustinCOMPREHENSIVE METABOLIC [id number] 00:00:00* Test Item Value Reference Range Interpretation Comme nts GLUCOSE (test code = 2217) 95 MG/DL BUN (test code = 2208) 10 MG/DL CREATININE (test code = 2214) 0.95 MG/DL eGFR (2020 CKD-EPI) (test co de = 34723) 84 ML/MIN/1.73 CALC BUN/CREAT (test code = [...] = 2219) 9 U/L Richard Carrillo AustinLIPID [id number] 00:00:00* Test Item Value Reference Range Interpretation Comme nts CHOLESTEROL (test code = 2210) 204 MG/DL TRIGLYCERIDES (test code = 2232) 91 MG/DL HDL CHOLESTEROL (test code = 2220) 36 MG/DL CALC LDL CHOL (test code = 2237) 148 MG/DL RISK RATIO LDL/HDL (test cod e = 2238) 4.11 RATIO Richard Casillas, THIRD [id number] 00:00:00* Test Item Value Reference Range Interpretation Comme nts TSH, THIRD GENERATION (test code = 2821) 1.370 UIU/ML Richard ArcosHEMOGLOBIN [id number] 00:00:00* Test Item Value Reference Range Interpretation Comme nts HEMOGLOBIN A1c (test code = 21274) 4.9 % Richard ArcosCBC W/AUTO [id number] 00:00:00* Test Item Value Reference Range Interpretation [...] ABS NUCLEATED RBCS (test cod e = 28644) 0.00 K/UL Richard ArcosCOMPREHENSIVE METABOLIC [id number] 00:00:00* Test Item Value Reference Range Interpretation Comme nts GLUCOSE (test code = 2217) 95 MG/DL BUN (test code = 2208) 10 MG/DL CREATININE (test code = 2214) 0.95 MG/DL eGFR (2020 CKD-EPI) (test co de = 92362) 84 ML/MIN/1.73 CALC BUN/CREAT (test code = [...] code = 2219) 9 U/L Richard ArcosLIPID [id number] 00:00:00* Test Item Value Reference Range Interpretation Comme nts CHOLESTEROL (test code = 2210) 204 MG/DL TRIGLYCERIDES (test code = 2232) 91 MG/DL HDL CHOLESTEROL (test code = 2220) 36 MG/DL CALC LDL CHOL (test code = 2237) 148 MG/DL RISK RATIO LDL/HDL (test cod e = 2238) 4.11 RATIO Richard ArcosTSH, THIRD [id number] 00:00:00* Test Item Value Reference Range Interpretation Comme nts TSH, THIRD GENERATION (test code = 2821) 1.370 UIU/ML Richard ArcosHEMOGLOBIN [id number] 00:00:00* Test Item Value Reference Range Interpretation Comme nts HEMOGLOBIN A1c (test code = 29626) 4.9 % Richard ArcosCBC W/AUTO [id number] 00:00:00* Test Item Value Reference Range Interpretation [...] ABS NUCLEATED RBCS (test cod e = 19105) 0.00 K/UL Richard F IsrraelCOMPREHENSIVE METABOLIC [id number] 00:00:00* Test Item Value Reference Range Interpretation Comme nts GLUCOSE (test code = 2217) 95 MG/DL BUN (test code = 2208) 10 MG/DL CREATININE (test code = 2214) 0.95 MG/DL eGFR (2020 CKD-EPI) (test co de = 80539) 84 ML/MIN/1.73 CALC BUN/CREAT (test code = [...] code = 2219) 9 U/L Richard ArcosLIPID [id number] 00:00:00* Test Item Value Reference Range Interpretation Comme nts CHOLESTEROL (test code = 2210) 204 MG/DL TRIGLYCERIDES (test code = 2232) 91 MG/DL HDL CHOLESTEROL (test code = 2220) 36 MG/DL CALC LDL CHOL (test code = 2237) 148 MG/DL RISK RATIO LDL/HDL (test cod e = 2238) 4.11 RATIO Richard ArcosTSH, THIRD [id number] 00:00:00* Test Item Value Reference Range Interpretation Comme annalisa TSH, THIRD GENERATION (test code = 2821) 1.370 UIU/ML Rcihard ArcosHEMOGLOBIN [id number] 00:00:00* Test Item Value Reference Range Interpretation Comme annalisa HEMOGLOBIN A1c (test code = 72134) 4.9 % Richard ArcosCBC W/AUTO [id number] 00:00:00* Test Item Value Reference Range Interpretation [...] ABS NUCLEATED RBCS (test cod e = 56704) 0.00 K/UL Richard ArcosCOMPREHENSIVE METABOLIC [id number] 00:00:00* Test Item Value Reference Range Interpretation Comme nts GLUCOSE (test code = 2217) 95 MG/DL BUN (test code = 2208) 10 MG/DL CREATININE (test code = 2214) 0.95 MG/DL eGFR (2020 CKD-EPI) (test co de = 21936) 84 ML/MIN/1.73 CALC BUN/CREAT (test code = [...] code = 2219) 9 U/L Richard ArcosLIPID [id number] 00:00:00* Test Item Value Reference Range Interpretation Comme nts CHOLESTEROL (test code = 2210) 204 MG/DL TRIGLYCERIDES (test code = 2232) 91 MG/DL HDL CHOLESTEROL (test code = 2220) 36 MG/DL CALC LDL CHOL (test code = 2237) 148 MG/DL RISK RATIO LDL/HDL (test cod e = 2238) 4.11 RATIO Richard ArcosTSH, THIRD [id number] 00:00:00* Test Item Value Reference Range Interpretation Comme annalisa TSH, THIRD GENERATION (test code = 2821) 1.370 UIU/ML Richard ArcosHEMOGLOBIN [id number] 00:00:00* Test Item Value Reference Range Interpretation Comme nts HEMOGLOBIN A1c (test code = 90187) 4.9 % Richard ArcosCBC W/AUTO [id number] 00:00:00* Test Item Value Reference Range Interpretation [...] ABS NUCLEATED RBCS (test cod e = 20231) 0.00 K/UL Richard ArcosCOMPREHENSIVE METABOLIC [id number] 00:00:00* Test Item Value Reference Range Interpretation Comme nts GLUCOSE (test code = 2217) 95 MG/DL BUN (test code = 2208) 10 MG/DL CREATININE (test code = 2214) 0.95 MG/DL eGFR (2020 CKD-EPI) (test co de = 76027) 84 ML/MIN/1.73 CALC BUN/CREAT (test code = [...] code = 2219) 9 U/L Richard ArcosLIPID [id number] 00:00:00* Test Item Value Reference Range Interpretation Comme nts CHOLESTEROL (test code = 2210) 204 MG/DL TRIGLYCERIDES (test code = 2232) 91 MG/DL HDL CHOLESTEROL (test code = 2220) 36 MG/DL CALC LDL CHOL (test code = 2237) 148 MG/DL RISK RATIO LDL/HDL (test cod e = 2238) 4.11 RATIO Richard ArcosTSH, THIRD [id number] 00:00:00* Test Item Value Reference Range Interpretation Comme [facility] TSH, THIRD GENERATION (test code = 2821) 1.370 UIU/ML Richard ArcosHEMOGLOBIN [id number] 00:00:00* Test Item Value Reference Range Interpretation Comme nts HEMOGLOBIN A1c (test code = 37257) 4.9 % Richard ArcosCBC W/AUTO [id number] 00:00:00* Test Item Value Reference Range Interpretation [...] ABS NUCLEATED RBCS (test cod e = 67195) 0.00 K/UL Richard ArcosCOMPREHENSIVE METABOLIC [id number] 00:00:00* Test Item Value Reference Range Interpretation Comme nts GLUCOSE (test code = 2217) 95 MG/DL BUN (test code = 2208) 10 MG/DL CREATININE (test code = 2214) 0.95 MG/DL eGFR (2020 CKD-EPI) (test co de = 90514) 84 ML/MIN/1.73 CALC BUN/CREAT (test code = [...] code = 2219) 9 U/L Richard ArcosLIPID [id number] 00:00:00* Test Item Value Reference Range Interpretation Comme nts CHOLESTEROL (test code = 2210) 204 MG/DL TRIGLYCERIDES (test code = 2232) 91 MG/DL HDL CHOLESTEROL (test code = 2220) 36 MG/DL CALC LDL CHOL (test code = 2237) 148 MG/DL RISK RATIO LDL/HDL (test cod e = 2238) 4.11 RATIO Richard ArcosTSH, THIRD [id number] 00:00:00* Test Item Value Reference Range Interpretation Comme annalisa TSH, THIRD GENERATION (test code = 2821) 1.370 UIU/ML Richard ArcosHEMOGLOBIN [id number] 00:00:00* Test Item Value Reference Range Interpretation Comme annalisa HEMOGLOBIN A1c (test code = 42361) 4.9 % Richard ArcosCBC W/AUTO [id number] 00:00:00* Test Item Value Reference Range Interpretation [...] ABS NUCLEATED RBCS (test cod e = 62667) 0.00 K/UL Richard ArcosCOMPREHENSIVE METABOLIC [id number] 00:00:00* Test Item Value Reference Range Interpretation Comme nts GLUCOSE (test code = 2217) 95 MG/DL BUN (test code = 2208) 10 MG/DL CREATININE (test code = 2214) 0.95 MG/DL eGFR (2020 CKD-EPI) (test co de = 25324) 84 ML/MIN/1.73 CALC BUN/CREAT (test code = [...] code = 2219) 9 U/L Richard ArcosLIPID [id number] 00:00:00* Test Item Value Reference Range Interpretation Comme nts CHOLESTEROL (test code = 2210) 204 MG/DL TRIGLYCERIDES (test code = 2232) 91 MG/DL HDL CHOLESTEROL (test code = 2220) 36 MG/DL CALC LDL CHOL (test code = 2237) 148 MG/DL RISK RATIO LDL/HDL (test cod e = 2238) 4.11 RATIO Richard ArcosCBC W/AUTO [id number] 00:00:00* Test Item Value Reference Range Interpretation [...] ABS NUCLEATED RBCS (test cod e = 31290) 0.00 K/UL Richard ArcosTSH, THIRD [id number] 00:00:00* Test Item Value Reference Range Interpretation Comme nts TSH, THIRD GENERATION (test code = 2821) 1.370 UIU/ML Richard ArcosHEMOGLOBIN [id number] 00:00:00* Test Item Value Reference Range Interpretation Comme nts HEMOGLOBIN A1c (test code = 61787) 4.9 % Richard ArcosCOMPREHENSIVE METABOLIC [id number] 00:00:00* Test Item Value Reference Range Interpretation Comme nts GLUCOSE (test code = 2217) 95 MG/DL BUN (test code = 2208) 10 MG/DL CREATININE (test code = 2214) 0.95 MG/DL eGFR (2020 CKD-EPI) (test co de = 41450) 84 ML/MIN/1.73 CALC BUN/CREAT (test code = [...] (test code = 2219) 9 U/L [facility] [id number] 00:00:00* Test Item Value Reference Range Interpretation [...] ABS NUCLEATED RBCS (test cod e = 78628) 0.00 K/UL Richard ArcosCOMPREHENSIVE METABOLIC [id number] 00:00:00* Test Item Value Reference Range Interpretation Comme nts GLUCOSE (test code = 2217) 95 MG/DL BUN (test code = 2208) 10 MG/DL CREATININE (test code = 2214) 0.95 MG/DL eGFR (2020 CKD-EPI) (test co de = 83101) 84 ML/MIN/1.73 CALC BUN/CREAT (test code = [...] code = 2219) 9 U/L Richard ArcosLIPID [id number] 00:00:00* Test Item Value Reference Range Interpretation Comme nts CHOLESTEROL (test code = 2210) 204 MG/DL TRIGLYCERIDES (test code = 2232) 91 MG/DL HDL CHOLESTEROL (test code = 2220) 36 MG/DL CALC LDL CHOL (test code = 2237) 148 MG/DL RISK RATIO LDL/HDL (test cod e = 2238) 4.11 RATIO Richard Carrillo IsrraelTSH, THIRD [id number] 00:00:00* Test Item Value Reference Range Interpretation Comme nts TSH, THIRD GENERATION (test code = 2821) 1.370 UIU/ML Richard ArcosLIPID [id number] 00:00:00* Test Item Value Reference Range Interpretation Comme nts CHOLESTEROL (test code = 2210) 204 MG/DL TRIGLYCERIDES (test code = 2232) 91 MG/DL HDL CHOLESTEROL (test code = 2220) 36 MG/DL CALC LDL CHOL (test code = 2237) 148 MG/DL RISK RATIO LDL/HDL (test cod e = 2238) 4.11 RATIO Richard ArcosHEMOGLOBIN [id number] 00:00:00* Test Item Value Reference Range Interpretation Comme annalisa HEMOGLOBIN A1c (test code = 16111) 4.9 % Richard ArcosTSH, THIRD [id number] 00:00:00* Test Item Value Reference Range Interpretation Comme annalisa TSH, THIRD GENERATION (test code = 2821) 1.370 UIU/ML Richard ArcosCBC W/AUTO [id number] 00:00:00* Test Item Value Reference Range Interpretation [...] ABS NUCLEATED RBCS (test cod e = 64515) 0.00 K/UL Richard ArcosCOMPREHENSIVE METABOLIC [id number] 00:00:00* Test Item Value Reference Range Interpretation Comme nts GLUCOSE (test code = 2217) 95 MG/DL BUN (test code = 2208) 10 MG/DL CREATININE (test code = 2214) 0.95 MG/DL eGFR (2020 CKD-EPI) (test co de = 60872) 84 ML/MIN/1.73 CALC BUN/CREAT (test code = [...] code = 2219) 9 U/L Richard ArcosLIPID [id number] 00:00:00* Test Item Value Reference Range Interpretation Comme nts CHOLESTEROL (test code = 2210) 204 MG/DL TRIGLYCERIDES (test code = 2232) 91 MG/DL HDL CHOLESTEROL (test code = 2220) 36 MG/DL CALC LDL CHOL (test code = 2237) 148 MG/DL RISK RATIO LDL/HDL (test cod e = 2238) 4.11 RATIO Richard ArcosTSH, THIRD [id number] 00:00:00* Test Item Value Reference Range Interpretation Comme nts TSH, THIRD GENERATION (test code = 2821) 1.370 UIU/ML Richard ArcosHEMOGLOBIN [id number] 00:00:00* Test Item Value Reference Range Interpretation Comme nts HEMOGLOBIN A1c (test code = 25746) 4.9 % Richard ArcosHEMOGLOBIN [id number] 00:00:00* Test Item Value Reference Range Interpretation Comme nts HEMOGLOBIN A1c (test code = 33159) 4.9 % Richard ArcosCBC W/AUTO [id number] 00:00:00* Test Item Value Reference Range Interpretation [...] ABS NUCLEATED RBCS (test cod e = 56332) 0.00 K/UL Richard ArcosCOMPREHENSIVE METABOLIC [id number] 00:00:00* Test Item Value Reference Range Interpretation Comme nts GLUCOSE (test code = 2217) 95 MG/DL BUN (test code = 2208) 10 MG/DL CREATININE (test code = 2214) 0.95 MG/DL eGFR (2020 CKD-EPI) (test co de = 77633) 84 ML/MIN/1.73 CALC BUN/CREAT (test code = [...] code = 2219) 9 U/L Richard ArcosLIPID [id number] 00:00:00* Test Item Value Reference Range Interpretation Comme nts CHOLESTEROL (test code = 2210) 204 MG/DL TRIGLYCERIDES (test code = 2232) 91 MG/DL HDL CHOLESTEROL (test code = 2220) 36 MG/DL CALC LDL CHOL (test code = 2237) 148 MG/DL RISK RATIO LDL/HDL (test cod e = 2238) 4.11 RATIO Richard ArcosTSH, THIRD [id number] 00:00:00* Test Item Value Reference Range Interpretation Comme [facility] TSH, THIRD GENERATION (test code = 2821) 1.370 UIU/ML Richard ArcosHEMOGLOBIN [id number] 00:00:00* Test Item Value Reference Range Interpretation Comme nts HEMOGLOBIN A1c (test code = 04632) 4.9 % Richard ArcosCBC W/AUTO [id number] 00:00:00* Test Item Value Reference Range Interpretation [...] ABS NUCLEATED RBCS (test cod e = 02579) 0.00 K/UL Richard F IsrraelCOMPREHENSIVE METABOLIC [id number] 00:00:00* Test Item Value Reference Range Interpretation Comme nts GLUCOSE (test code = 2217) 95 MG/DL BUN (test code = 2208) 10 MG/DL CREATININE (test code = 2214) 0.95 MG/DL eGFR (2020 CKD-EPI) (test co de = 42899) 84 ML/MIN/1.73 CALC BUN/CREAT (test code = [...] code = 2219) 9 U/L Richard Carrillo [place] [id number] 17:08:00* Test Item Value Reference Range Interpretation Comme nts POCT PREG (test code = 1605) Negative On board controls acceptable with C Line (test code = 3574) Yes POCT PREG LOT # (test code = 3575) [id number] POCT PREG TEST DATE ( test code = 3576) 02/03/2024 Lab Interpretation (test cod e = 53092-7) Normal [facility] [id number] 17:08:00* Test Item Value Reference Range Interpretation Comme nts POCT PREG (test code = 1605) Negative On board controls acceptable with C Line (test code = 3574) Yes POCT PREG LOT # (test code = 3575) [id number] POCT PREG TEST DATE ( test code = 3576) 02/03/2024 Lab Interpretation (test cod e = 58525-1) [facility] [id number] 20:09:00* Test Item Value Reference Range Interpretation Comme nts POCT PREG (test code = 1605) Negative On board controls acceptable with C Line (test code = 3574) Yes POCT PREG LOT # (test code = 3575) [id number] POCT PREG TEST DATE ( test code = 3576) 09/16/2023 [facility] [id number] 20:09:00* Test Item Value Reference Range Interpretation Comme nts POCT PREG (test code = 1605) Negative On board controls acceptable with C Line (test code = 3574) Yes POCT PREG LOT # (test code = 3575) [id number] POCT PREG TEST DATE ( test code = 3576) [id number] 17:24:49* Test Item Value Reference Range Interpretation Comme nts ANTI-SMRNP (test code = 3021690380) Negative Negative NATHALIE (test code = NATHALIE) Positive - Antibod y detected.Negative - No antibody detected. Lab Interpretation (test code = 96087-2) [facility] 17:24:49* Test Item Value Reference Range Interpretation Comme nts ANTI-SSA(RO) (test code = 2448653224) Negative Negative NATHALIE (test code = NATHALIE) Positive - Antibod y detected.Negative - No antibody detected. Lab Interpretation (test code = 69952-4) [facility]22-[facility]12 17:24:49* Test Item Value Reference Range Interpretation Comme nts Anti-SSB(LA) (test code = 5801431377) Negative Negative NATHALIE (test code = NATHALIE) Positive - Antibod y detected.Negative - No antibody detected. Lab Interpretation (test code = 65879-3) [facility] [id number] 17:24:48* Test Item Value Reference Range Interpretation Comme nts ANTI-DSDNA (test code = 7719843837) See_Comment [Automated message] The system which generated this result transmitted reference range: 0.0 - 4.0 IU/mL. The reference range was not used to interpret this result as normal/abnormal. NATHALIE (test code = NATHALIE) Negative ? ?< or = 4 IU/mLPositive ? ? ?> or = 10 IU/mLIndetermin ate ?5-9 IU/mL Lab Interpretation (test code = 80825-3) [facility] [id number] 00:41:07* Test Item Value Reference Range Interpretation Comme nts VIT B12 (test code = 2108915648) 266 pg/mL 240-930 NATHALIE (test code = NATHALIE) Biotin has been reported to cause a positive bias, interpret results relative to patient's use of biotin. Lab Interpretation (test code = 98307-2) [facility] [id number] 00:21:46 * Test Item Value Reference Range Interpretation Comme nts TSH (test code = 1900947086) 0.72 See_Comment [Automated messa ge] The system which generated this result transmitted reference range: 0.45 - 4.70 mIU/L. The reference range was not used to interpret this result as normal/abnormal. Lab Interpretation (test code = 57395-5) Normal [facility] [id number] 00:08:06* Test Item Value Reference Range Interpretation Comme nts FREE T4 (test code = 3964605911) 1.15 See_Comment [Automated messa ge] The system which generated this result transmitted reference range: 0.78 - 2.20 ng/dL:. The reference range was not used to interpret this result as normal/abnormal. Lab Interpretation (test code = 11241-0) Normal [facility]-REACTIVE [id number] 17:31:36* Test Item Value Reference Range Interpretation Comme nts CRP (test code = 8407078930) 0.4 mg/dL <=0.8 Lab Interpretation (test cod e = 06001-2) Normal [facility]-REACTIVE [id number] 17:31:36* Test Item Value Reference Range Interpretation Comme nts CRP (test code = 7954777020) 0.4 mg/dL <=0.8 Lab Interpretation (test cod e = 01005-7) Normal [facility]-REACTIVE [id number] 17:31:36* Test Item Value Reference Range Interpretation Comme nts CRP (test code = 9434477567) 0.4 mg/dL <=0.8 Lab Interpretation (test cod e = 74516-0) Normal [facility] D, [id number] 08:38:28* Test Item Value Reference Range Interpretation Comme nts VIT D 25OH (test code = 90226-8) 23 ng/mL 25-80 L NATHALIE (test code = NATHALIE) Deficiency: <20 ng/mLInsufficiency: 20-24 ng/mLOptimal: 25-80 ng/mL Lab Interpretation (test code = 70848-1) [facility]normal [facility], [id number] 08:38:28* Test Item Value Reference Range Interpretation Comme nts VIT D 25OH (test code = 37435-0) 23 ng/mL 25-80 L NATHALIE (test code = NATHALIE) Deficiency: <20 ng/mLInsufficiency: 20-24 ng/mLOptimal: 25-80 ng/mL Lab Interpretation (test code = 81890-6) [facility]normal [facility], [id number] 08:38:28* Test Item Value Reference Range Interpretation Comme nts VIT D 25OH (test code = 32135-4) 23 ng/mL 25-80 L NATHALIE (test code = NATHALIE) Deficiency: <20 ng/mLInsufficiency: 20-24 ng/mLOptimal: 25-80 ng/mL Lab Interpretation (test code = 45660-9) Abnormal [facility]2023-02-14 05:38:05* Test Item Value Reference Range Interpretation Comme nts ESR (test code = 04546-4) 14 See_Comment [Automated message] The system which generated this result transmitted reference range: 0 - 20 mm/HR. The reference range was not used to interpret this result as normal/abnormal. Lab Interpretation (test code = 45002-2) Normal [facility]2023-02-14 05:38:05* Test Item Value Reference Range Interpretation Comme nts ESR (test code = 33719-2) 14 See_Comment [Automated message] The system which generated this result transmitted reference range: 0 - 20 mm/HR. The reference range was not used to interpret this result as normal/abnormal. Lab Interpretation (test code = 77332-7) Normal [facility] [id number] 05:38:05* Test Item Value Reference Range Interpretation Comme nts ESR (test code = 48466-9) 14 See_Comment [Automated message] The system which generated this result transmitted reference range: 0 - 20 mm/HR. The reference range was not used to interpret this result as normal/abnormal. Lab Interpretation (test code = 42804-6) Normal [facility] [id number] 00:05:00 * Test Item Value Reference Range Interpretation Comme nts TSH (test code = 0688500162) See_Comment L [Automated messa ge] The system which generated this result transmitted reference range: 0.45 - 4.70 mIU/L. The reference range was not used to interpret this result as normal/abnormal. Lab Interpretation (test code = 04425-5) [facility]normal [facility] [id number] 00:05:00 * Test Item Value Reference Range Interpretation Comme nts TSH (test code = 0562715223) See_Comment L [Automated messa ge] The system which generated this result transmitted reference range: 0.45 - 4.70 mIU/L. The reference range was not used to interpret this result as normal/abnormal. Lab Interpretation (test code = 89899-4) Abnormal [place] [address] [id number] 23:51:00* Test Item Value Reference Range Interpretation Comme nts FREE T4 (test code = 1886713198) 1.93 ng/dL 0.78-2.2 Lab Interpretation (test cod e = 34803-0) Normal [place] [address] [id number] 23:51:00* Test Item Value Reference Range Interpretation Comme nts FREE T4 (test code = 8819809831) 1.93 ng/dL 0.78-2.2 Lab Interpretation (test cod e = 82801-0) Normal [facility] Notes Date/Time Note Provider Source [facility]2025-09-04 00:00:00 [facility]2025-08-26 00:00:00 [facility]2025-08-20 00:00:00 [facility]2025-08-14 00:00:00 [facility]2025-08-12 00:00:00 [facility]2025-07-29 00:00:00 [facility]2025-07-11 00:00:00 [facility]2025-05-01 00:00:00 [facility]2025-04-14 00:00:00 [facility]2025-04-02 00:00:00 [facility]2024-10-07 11:53:47 Please review and advise. ZAC 04/23/23 Ninoska Quijano [facility]2024-10-07 09:43:18 Patient is calling again regarding getting lab orders placed. Debbie MonsonWVUMedicine Barnes[facility] HospitalOvnzwf7430-67-31 09:23:17 Called and scheduled patient for 12/31/23 for IUD removal. Estella LozanoWVUMedicine Barnesville HospitalJwgxvb3280-62-35 12:39:55 Called pt; left v/m to schedule. Ss 12/21 @ 12:40pm Flori PepperWVUMedicine Barnesville HospitalEtfmms1529-26-51 08:47:49 Nita Schroeder is a 28 year old female is calling to be scheduled for IUD removal. Patient seen on 11/05 for consult and calling to schedule. Please call. Thank you. Patrizia UrbanoWVUMedicine Barnesville HospitalTfmiec0492-46-94 14:55:24 Called to speak with patient. She states she is still taking the medication - 1.5 tabs (75 +37.5mg) every evening. Dinah Cao RNWVUMedicine Barnesville HospitalIyxfwd7061-84-00 09:23:16 Ok we will see what It shows Is she still taking Effexor [facility] HospitalOloyci2337-86-97 09:00:22 Contacted patient and notified her per provider thyroid labs have been placed. She may have them drawn Mon-Fri 730a-445p. Patient reports she just got off her cycle last week, she is on control and has not been very active since she doesn't feel well. She states she will take an at home UPT. Marjorie Fay LVN 08/12/2023 9:02 AM Marjorie Fay [facility]2024-03-25 16:06:52 I put the order in, has she taken a home UPT? [place] 422394-03-25 15:49:36 Please review and advise [facility]2024-03-25 15:45:26 Nita Schroeder is a 27 year old female Pt called wanting to see if pcp can send lab orders to check her Thyroid levels. Pt states wakes up nauseous, tried all the time, & can't sleep at night. Pt declined apt due to self pay [place]. Please advise [phone] (home) [facility] Luis KraftWVUMedicine Barnesville HospitalXqmmuu5539-06-24 08:49:38 Please review and sign if appropriate: [...] Plan: meloxicam 15 mg tablet LEON Quijano [facility]2023-08-23 13:19:56 Podiatry referral placed r/t x ray results [facility] HospitalWksvzd9503-47-34 12:15:00 Patient states she will call her Psych dr to check on lab orders. Pasha Tobias [facility] HospitaljannethWVUM[facility] Hospital
[2025-02-28] MEDS ORDERED: NA CHLORIDE 0.9% 1,000 ML ONE ×2 (12:06→13:40)
[2025-02-28 12:18] LABS: Urine Crystals Unidentified Few /HPF (None Seen); Urine Culture Reflex Order REFLEXED; Urine Microscopic Reflex YN ORDER UMIC
[2025-02-28 12:21] LABS: Absolute Lymphocytes (CBC) 1.8 K/uL (0.7-4.9); Hematocrit 41.2 % (36.0-45.0); Hemoglobin 13.9 g/dL (12.0-15.0); MCH 30.4 pg (27.0-35.0); MCHC 33.8 g/dL (32.0-36.0); MCV 89.9 fL (80-100); MPV 7.7 fL (7.6-11.3); Nucleated RBC Absolute Count 0.0 (0-0); Nucleated Red Blood Cells % 0.0 % (0-0); RBC Red Blood Cell Count 4.58 M/uL (3.86-4.86); White Blood Count 9.50 thou/uL (4.3-10.9)
[2025-02-28] MEDS ORDERED: METOCLOPRAMIDE 10 MG/2mL INJ ONE (12:21)
[2025-02-28] MEDS ORDERED: NA CHLORIDE 0.9% 50 ML ONE (12:21)
[2025-02-28] MEDS ORDERED: DIPHENHYDRAMINE 50 MG/ML VIAL ONE (12:21)
[2025-02-28 12:39] LABS: ALT/SGPT 26.0 U/L (13-56); AST/SGOT 14.0 U/L (15-37); Albumin 3.0 g/dL (3.4-5.0); Albumin/Globulin Ratio 0.9 (1.1-1.8); Alkaline Phosphatase 58.0 U/L (45-117); Anion Gap 9.5 mEq/L (5.0-15.0); BUN Blood Urea Nitrogen 7.0 mg/dL (7-18); Globulin 3.4 g/dL (2.3-3.5); Glucose Level 79.0 mg/dL (74-106); Potassium 3.5 mEq/L (3.5-5.1)
[2025-02-28] MEDS ORDERED: ACETAMINOPHEN 325 MG TABLET ONE (12:55)
--- NOTE | 2025-02-28 14:23 | EDPHYS ---
Physician Documentation [facility] Name: Penelope Slater Age: 29 yrs Sex: Female : 1995 Arrival Date: 02/28/2025 Time: 10:32 Bed 19 Private MD: ED Physician Nikolas Winston HPI: 02/28 10:55 This 29 yrs old Female presents to ER via Ambulatory with complaints of Dehydrated, kb Headache. 10:55 Patient is a 29-year-old female who presents for dehydration and migraine that started kb last night. States she has hyperemesis gravidarum and has been getting dehydrated due to vomiting. Reports she is 14 weeks , LMP 10/17/2024. G2, . . 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 - Infectious Disease History:: Denies. - Social history:: Smoking status: Patient denies any tobacco usage or history of. ROS: 10:56 Constitutional: As per HPI kb Exam: 10:56 Constitutional: This is a well developed, well nourished patient who is awake, alert, kb and in no acute distress. Head/Face: Normocephalic, atraumatic. ENT: Moist Mucous membranes Cardiovascular: Regular rate Respiratory: Respirations even and unlabored. No increased work of breathing. Talking in full sentences Skin: Warm, dry with normal turgor. Normal color. MS/ Extremity: Pulses equal, no cyanosis. Neurovascular intact. Full, normal range of motion. Neuro: Awake and alert, GCS 15, oriented to person, place, time, and situation. Vital Signs: 10:52 BP 110 / 82; Pulse 97; Resp 18; Temp 98.2; Pulse Ox 98% ; Weight 124.74 kg; Height 5 me1 ft. 7 in. ; Pain 0/10; 13:04 BP 93 / 73; Pulse 72; Resp 16; Pulse Ox 100% on R/A; iw 14:55 BP 111 / 73; Pulse 72; Resp 19; Temp 98.2; Pulse Ox 100% ; Pain 0/10; zm 10:52 Body Mass Index 43.07 (124.74 kg, 170.18 cm) me1 10:52 Pain Scale: Adult me1 14:55 Pain Scale: Adult zm [place] Coma Score: 14:55 Eye Response: spontaneous(4). Motor Response: obeys commands(6). Verbal Response: zm oriented(5). Total: 15. MDM: 10:37 Medical Screening Exam initiated kb 14:22 Differential diagnosis: Hyperemesis gravidarum, dehydration, abnormal electrolytes. kb Data reviewed: vital signs, nurses notes. Test considered but Not performed: Ultrasound Ultrasound considered but patient has no abdominal pain, tenderness or vaginal bleeding. Counseling: I had a detailed discussion with the patient and/or guardian regarding the historical points, exam findings, and any diagnostic results supporting the discharge/admit diagnosis, lab results, the need for outpatient follow up, an OB/Gyne specialist, to return to the emergency department if symptoms worsen or persist or if there are any questions or concerns that arise at home. 14:23 ED course: Patient tolerating p.o. intake after treatment. kb 02/28 10:54 Order name: CBC with Diff; Complete Time: 12:26 kb 02/28 10:54 Order name: CMP; Complete Time: 12:42 kb 02/28 10:54 Order name: UA Rfx Anthony Cult if indicated; Complete Time: 12:26 kb 02/28 12:24 Order name: Urine Culture EDNV 02/28 10:54 Order name: IV Start; Complete Time: 12:00 kb 02/28 12:42 Order name: PO challenge; Complete Time: 13:01 kb Administered Medications: 12:18 Drug: NS 0.9% IV 1000 ml IV at 1000 ml once; to be given as a bolus over 60 minutes zm Route: IV; Rate: 1000 ml; Site: right antecubital; 14:57 Follow up: Response: No adverse reaction; IV Status: Completed infusion; IV Intake: zm 1000ml 12:36 Drug: metoCLOPramide IVP 10 mg IVP once; over 1 to 2 minutes Route: IVP; Site: right zm antecubital; 14:56 Follow up: Response: No adverse reaction; Nausea is decreased zm 12:36 Drug: diphenhydrAMINE IVP 12.5 mg IVP once Route: IVP; Site: right antecubital; zm 14:56 Follow up: Response: No adverse reaction zm 13:01 Drug: Acetaminophen PO 650 mg PO once Route: PO; iw 14:56 Follow up: Response: No adverse reaction zm 13:47 Drug: NS 0.9% IV 1000 ml IV at 1000 ml once; to be given as a bolus over 60 minutes zm Route: IV; Rate: 1000 ml; Site: right antecubital; 14:56 Follow up: Response: No adverse reaction; IV Status: Completed infusion; IV Intake: zm 1000ml Disposition: 17:50 Co-signature as Attending Physician, Nikolas Winston MD I reviewed the patient's care rn provided by the Advanced Practice Provider and agree with the diagnosis and treatment plan. Disposition Summary: 02/28/25 14:23 Discharge Ordered Notes: Location: Home kb Condition: Stable kb Diagnosis - Vomiting of , unspecified kb Followup: kb - With: Emergency Department - When: As needed - Reason: Worsening of condition Followup: kb - With: Private Physician - When: 2 - 3 days - Reason: Recheck today's complaints, Continuance of care, Re-evaluation by your physician Discharge Instructions: - Discharge Summary Sheet kb - Hyperemesis Gravidarum kb Forms: - Medication Reconciliation Form kb - Antibiotic Education kb - Prescription Opioid Use kb - Patient Portal Instructions kb - Leadership Thank You Letter kb Signatures: Dispatcher [employer] Carissa Szymanski, SHIP SUPERINTENDENT-C SHIP SUPERINTENDENT-Ckb Danica Adames RN RN Nikolas Winston MD MD rn Martinez, Zaina, RN RN Suzy Suresh RN RN me1 Corrections: (The following items were deleted from the chart) 10:56 10:55 UA Rfx Anthony Cult if indicated+U.LAB.BRZ ordered. EDNV EDMS
--- NOTE | 2025-02-28 14:23 | ER ---
Nurse's Notes [facility] Name: Penelpoe Slater Age: 29 yrs Sex: Female : 1995 Arrival Date: 02/28/2025 Time: 10:32 Bed 19 Private MD: Diagnosis: Vomiting of , unspecified Presentation: 02/28 10:52 Chief complaint: Patient states: she is 14 weeks and having trouble keeping me1 down fluids, has had a migraine since 10 pm last night. Feels dehydrated, lips are dry, thirsty, urine is dark. Coronavirus screen: At this time, the client does not indicate any symptoms associated with coronavirus-19. Ebola Screen: No symptoms or risks identified at this time. Initial Sepsis Screen: Does the patient meet any 2 criteria? HR > 90 bpm. Does the patient have a suspected source of infection? No. Patient's initial sepsis screen is negative. Risk Assessment: Do you want to hurt yourself or someone else? Patient reports no desire to harm self or others. Onset of symptoms is unknown. 10:52 Method Of Arrival: Ambulatory [facility] 10:52 Acuity: PRATIBHA 3 me1 Triage Assessment: 13:10 General: Appears in no apparent distress. comfortable, Behavior is calm, cooperative. zm Pain: Denies pain. Also complains of. 13:10 Headache History: Denies prior headaches. 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 - Infectious Disease History:: Denies. - Social history:: Smoking status: Patient denies any tobacco usage or history of. Screenin:04 [facility] ED Fall Risk Assessment (Adult) History of falling in the last 3 months, iw including since admission No falls in past 3 months (0 pts) Confusion or Disorientation No (0 pts) Intoxicated or Sedated No (0 pts) Impaired Gait No (0 pts) Mobility Assist Device Used No (0 pt) Altered Elimination No (0 pt) Score/Fall Risk Level 0 - 2 = Low Risk Oriented to surroundings, Maintained a safe environment. Abuse screen: Denies threats or abuse. Denies injuries from another. Nutritional screening: No deficits noted. Tuberculosis screening: No symptoms or risk factors identified. Assessment: 13:00 Pain: Denies pain. Neuro: Level of Consciousness is awake, alert, obeys commands, zm Oriented to person, place, time, situation, Reports headache in left frontal area. 13:00 General: Appears in no apparent distress. comfortable, Behavior is calm, cooperative. zm Cardiovascular: Capillary refill < 3 seconds in bilateral Patient's skin is warm and dry. Respiratory: Airway is patent Respiratory effort is even, unlabored, Respiratory pattern is regular, symmetrical. GI: No signs and/or symptoms were reported involving the gastrointestinal system. : No signs and/or symptoms were reported regarding the genitourinary system. EENT: No signs and/or symptoms were reported regarding the EENT system. Derm: No signs and/or symptoms reported regarding the dermatologic system. Musculoskeletal: No signs and/or symptoms reported regarding the musculoskeletal system. 13:01 Reassessment: Patient appears in no apparent distress at this time. Patient and/or family updated on plan of care and expected duration. Pain level reassessed. Patient is alert, oriented x 3, equal unlabored respirations, skin warm/dry/pink. 14:49 Reassessment: Patient appears in no apparent distress at this time. No changes from zm previously documented assessment. Patient and/or family updated on plan of care and expected duration. Pain level reassessed. Patient is alert, oriented x 3, equal unlabored respirations, skin warm/dry/pink. Vital Signs: 10:52 BP 110 / 82; Pulse 97; Resp 18; Temp 98.2; Pulse Ox 98% ; Weight 124.74 kg; Height 5 me1 ft. 7 in. ; Pain 0/10; 13:04 BP 93 / 73; Pulse 72; Resp 16; Pulse Ox 100% on R/A; iw 14:55 BP 111 / 73; Pulse 72; Resp 19; Temp 98.2; Pulse Ox 100% ; Pain 0/10; zm 10:52 Body Mass Index 43.07 (124.74 kg, 170.18 cm) me1 10:52 Pain Scale: Adult me1 14:55 Pain Scale: Adult zm [place] Coma Score: 14:55 Eye Response: spontaneous(4). Motor Response: obeys commands(6). Verbal Response: zm oriented(5). Total: 15. ED Course: 10:34 Patient arrived in ED. cj3 10:37 Carissa Witt FNP-C [facility] kb 10:37 Nikolas Winston MD is Attending Physician. kb 10:54 Triage completed. me1 10:54 Arm band placed on Patient placed in an exam room. me1 12:00 Initial lab(s) drawn, by dock or pier laborer, sent to lab. Inserted saline lock: 20 gauge in right ts3 antecubital area, using aseptic technique. Blood collected. Flushed with 10 mL NS. 12:00 Urine collected: clean catch specimen, sent to lab. ts3 12:13 Bina Frankel, RN is Primary Nurse. 13:10 Patient has correct armband on for positive identification. Bed in low position. Call zm light in reach. Side rails up X 1. 13:10 Provided Education on: call light use. Client placed on continuous cardiac and pulse zm oximetry monitoring. NIBP monitoring applied. Pulse ox on. NIBP on. Door closed. Noise minimized. Lights dimmed. Warm blanket given. Verbal reassurance given. 14:51 No provider procedures requiring assistance completed. IV discontinued, intact, zm bleeding controlled, No redness/swelling at site. Pressure dressing applied. Administered Medications: 12:18 Drug: NS 0.9% IV 1000 ml IV at 1000 ml once; to be given as a bolus over 60 minutes Route: IV; Rate: 1000 ml; Site: right antecubital; 14:57 Follow up: Response: No adverse reaction; IV Status: Completed infusion; IV Intake: zm 1000ml 12:36 Drug: metoCLOPramide IVP 10 mg IVP once; over 1 to 2 minutes Route: IVP; Site: right zm antecubital; 14:56 Follow up: Response: No adverse reaction; Nausea is decreased 12:36 Drug: diphenhydrAMINE IVP 12.5 mg IVP once Route: IVP; Site: right antecubital; zm 14:56 Follow up: Response: No adverse reaction 13:01 Drug: Acetaminophen PO 650 mg PO once Route: PO; 14:56 Follow up: Response: No adverse reaction 13:47 Drug: NS 0.9% IV 1000 ml IV at 1000 ml once; to be given as a bolus over 60 minutes zm Route: IV; Rate: 1000 ml; Site: right antecubital; 14:56 Follow up: Response: No adverse reaction; IV Status: Completed infusion; IV Intake: zm 1000ml Medication: 14:39 VIS not applicable for this client. zm Intake: 14:56 IV: 1000ml; Total: 1000ml. zm 14:57 IV: 1000ml; Total: 2000ml. Outcome: 14:23 Discharge ordered by . gianna 14:53 Discharged to home ambulatory, 14:53 Condition: stable 14:53 Discharge instructions given to patient, Instructed on discharge instructions, follow up and referral plans. Demonstrated understanding of instructions, follow-up care, 14:57 Patient left the ED. Signatures: Carissa Witt, SUSPENSION CORD TIER-C SUSPENSION CORD TIER-Ckb Danica Adames, RN MAGALYS Bina Frankel RN RN Suzy Suresh, MAGALYS RN me1 Sil [place] 3 Taylor Calderón 3
[2025-02-28 17:36] VITALS: TEMP 98.2
[2025-02-28 17:38] VITALS: O2SAT 100
[2025-02-28 17:40] VITALS: BP 111/73
== END 2025-02-28 14:57 | disposition home or self-care (01) ==
LOC: ER 10:32
DX: O21.9 Vomiting of pregnancy, unspecified (principal); G43.909 Migraine, unspecified, not intractable, without status migrainosus; E86.0 Dehydration; F32.A Depression, unspecified; I10 Essential (primary) hypertension; E05.00 Thyrotoxicosis with diffuse goiter without thyrotoxic crisis or storm; K76.9 Liver disease, unspecified; Z3A.14 14 weeks gestation of pregnancy
CPT/HCPCS: 96361; 87088; 85025; 81001; 87086; 36415; 80053; 96375; 96374; 99284; J2765; J1200; J7030 ×2